=== PATIENT | male | born 1955 | race Caucasian/White ===

== ENCOUNTER → 2018-05-17 15:18 | Outpatient (CLI) | payer MEDICARE, SELFPAY ==
[2017-07-24 15:55] VITALS: BMI 30.1
[2018-05-17 18:19] LABS: Basophil# 0.05 X10^3/uL; Basophil% 0.7 % (0-1); Eosinophil# 0.42 X10^3/uL; Eosinophils% 5.9 % (0-5); Lymphocyte % 27.9 % (19-41); Mean Corp Hgb Conc 33.3 g/gl (32-36); Mean Platelet Vol. 9.8 fl (6.2-12.0); Monocyte# 0.61 X10^3/uL; Monocyte% 8.5 % (0-10); Neutrophil # 4.01 X10^3/uL (2.7-7.7); Platelet Count 290 K/mm3 (150-450); RBC Distribution Width CV 13.2 % (11.6-14.6); RBC Distribution Width SD 45.5 fl (35.1-43.9); Red Blood Count 5.16 M/mm3 (4.6-6.2); White Blood Count 7.2 K/mm3 (4.4-11.0)
[2018-05-17 18:21] LABS: POSITIVE COUNT NO; POSITIVE DIFFERENTIAL NO; POSITIVE MORPHOLOGY NO
[2018-05-17 18:34] LABS: ALB/GLOB Ratio 0.8 RATIO (0.9-2.4); AST(SGOT) 14 U/L (15-37); Alanine Aminotransfer ALT/SGPT 21 U/L (16-61); Albumin, Serum 3.3 g/dL (3.2-5.0); Alkaline Phosphatase 123 U/L (45-117); Anion Gap 9 (5-15); BUN 16 mg/dL (7-18); BUN/Creat Ratio 11.7 RATIO (10-20); CPK Total, Creatine Kinase 24 U/L (39-308); Calcium,Total 8.5 mg/dL (8.5-10.1); Chloride 104 mmol/L (98-107); Creatinine, Serum 1.37 mg/dL (0.70-1.30); EST Glomerular Filtration Rate 56 mL/min (>60); Est Glom Filt Rate - Afr Amer 68 mL/min (>60); Globulin 4.2 g/dL (2.2-4.2); Glucose 99 mg/dL (74-106); Potassium 4.1 mmol/L (3.5-5.1); Protein, Total 7.5 g/dL (6.4-8.2); Sodium Level 137 mmol/L (136-145)
[2018-05-17 18:43] LABS: Erythrocyte Sedimentation Rate 39 mm/hr (0-20)
--- OUTSIDE RECORDS SUMMARY | 2018-08-19 08:00 | XMS RPT_ITS ---
:1955 Author Organization [facility] Care Team Providers Name Role Phone CAMILO MATHUR MD Attending Unavailable PHYSICIAN, NONE Primary Care Unavailable CAMILO MATHUR MD Attending Unavailable PHYSICIAN, NONE Primary Care Unavailable [place] LAMBERT MD Attending Unavailable PHYSICIAN, NONE Primary Care Unavailable [place] LAMBERT MD Admitting Unavailable CAMILO MATHUR MD Consulting Unavailable DEZ SNELL MD Consulting Unavailable Cayden Medel Attending Unavailable Alana Mcclelland Primary Care Unavailable Alvin Lara Attending Unavailable Alana Mcclelland Referring Unavailable Alana Mcclelland Primary Care Unavailable PROBLEMS PROBLEMS DATE TYPE CONDITION / CODE ATTENDING STATUS SOURCE 06/02/2018 Unknown M79.10 - Myalgia, Cayden Medel Active [place] unspecified site / Community M79.10(ICD-10) Hospital Repository 07/24/2017 Unknown I10 - Essential Alvin Lara Active [place] (primary) Community hypertension / Hospital I10(ICD-10) Repository PROCEDURES PROCEDURES No Procedure Records FoundRESULTS RESULTS CBC W/DIFF, AUTOMATED Collected: 05/17/2018 Status: F Source: [place] 3:[address] [facility] REPOSITORY TYPE CODE TESTS RESULT OUT OF RANGE REFERENCE UNITS LAB L100.1000 4.4-11.0 K/mm3 Normal WBC 7.2 LAB L100.1200 4.6-6.2 M/mm3 Normal RBC 5.16 LAB L100.1300 13.0-16.5 g/dl Normal HGB 16.0 LAB L100.1400 40-54 % Normal HCT 48.0 LAB L100.1500 80-94 fL Normal MCV 93.0 LAB L100.1600 27.0-32.0 pg Normal MCH 31.0 LAB L100.1700 32-36 g/gl Normal MCHC 33.3 LAB L100.1810 11.6-14.6 % Normal RDW CV 13.2 LAB L100.1820 35.1-43.9 fl High RDW SD 45.5 LAB L100.1900 150-450 K/mm3 Normal PLT 290 LAB L100.2000 6.2-12.0 fl Normal MPV 9.8 LAB L100.2100 47-70 % Normal NEUT% 56.0 LAB L100.2200 19-41 % Normal LY% 27.9 LAB L100.2300 0-10 % Normal MONO% 8.5 LAB L100.2400 0-5 % High EO% 5.9 LAB L100.2500 0-1 % Normal BASO% 0.7 LAB L100.2550 0.0-0.9 % High IM GRAN % 1.000 Result Comment: IG% - Immature Granulocytes (promyelocytes, myelocytes and metamyelocytes) > 1% indicates that a LEFT SHIFT is Present. LAB L100.2620 2.0-7.7 X10 3/uL Normal Absolute Neut 4.0 LAB L100.2720 0.83-4.51 X10 3/ul Normal Absolute Lymph 2.00 Performed By: #### L100.0100, L101.9900 #### [facility] [address] [place], [address] ERYTHROCYTE SED RATE Collected: 05/17/2018 Status: F Source: [place] 3:[address] [facility] REPOSITORY TYPE CODE TESTS RESULT OUT OF RANGE REFERENCE UNITS LAB L102.0000 0-20 mm/hr High SED RATE 39 Performed By: #### L100.0100, L101.9900 #### [facility] [address] [place], [address] COMPREHENSIVE METABOLIC Collected: 05/17/2018 Status: F Source: [place] [facility] 3:[address] [facility] REPOSITORY TYPE CODE TESTS RESULT OUT OF RANGE REFERENCE UNITS LAB L501.0100 74-106 mg/dL Normal GLU 99 Result Comment: Please note revised GLUCOSE reference range effective 2017. LAB L501.1000 7-18 mg/dL Normal BUN 16 LAB L501.1100 0.70-1.30 mg/dL High CREAT,SERUM 1.37 Result Comment: The validity of the calculated GFR AND GFRAA in patients over 70 years has not been determined. Clinical correlation is essential. LAB L501.1110 >60 mL/min Low EST GFR 56 Result Comment: Non- GFR Calc LAB L501.1115 >60 mL/min Normal EST GFR - AA 68 Result Comment: GFR Calc LAB L501.1300 10-20 RATIO Normal BUN/CRE 11.7 LAB L501.1500 6.4-8.2 g/dL T Normal PROT 7.5 LAB L501.1800 3.2-5.0 g/dL Normal ALB 3.3 LAB L501.1950 2.2-4.2 g/dL Normal GLOB 4.2 LAB L501.2000 0.9-2.4 RATIO Low A/G 0.8 LAB L501.2200 8.5-10.1 mg/dL CA Normal 8.5 LAB L501.4100 15-37 U/L Low AST 14 Result Comment: Slight Hemolysis, Result may be falsely increased. LAB L501.4305 45-117 U/L High ALK P 123 LAB L501.4405 16-61 U/L Normal ALT 21 LAB L501.4600 0.20-1.00 mg/dL Normal T BILI 0.50 LAB L501.5300 136-145 mmol/L Normal NA 137 LAB L501.5600 3.5-5.1 mmol/L Normal K 4.1 Result Comment: Slight Hemolysis, Result may be falsely increased. LAB L501.5900 98-107 mmol/L Normal CL 104 LAB L501.6100 21.0-32.0 mmol/L Normal CO2 24.0 LAB L501.6200 5-15 Normal 9 GAP Performed By: #### L500.4050, L501.3620, L501.6710 #### [facility] [address] [place], [address] CPK TOTAL, CREATINE Collected: 05/17/2018 Status: F Source: [facility] 3:[address] [facility] REPOSITORY TYPE CODE TESTS RESULT OUT OF RANGE REFERENCE UNITS LAB L501.3620 39-308 U/L Low CPK TOTAL 24 Performed By: #### L500.4050, L501.3620, L501.6710 #### [facility] [address] [place], [address] CRP Collected: 05/17/2018 Status: F Source: [place] 3:[address] [facility] REPOSITORY TYPE CODE TESTS RESULT OUT OF RANGE REFERENCE UNITS LAB L501.6710 0.0-3.0 mg/L High 12.20 C-REACTIVE PROT Result Comment: C-Reactive Protein (CRP) provides useful information for the diagnosis, therapy and monitoring of inflammatory processes and associated diseases. For the evaluation of Relative Risk for Cardiovascular Disease, a High Sensitivity CRP (HSCRP) should be ordered. Performed By: #### L500.4050, L501.3620, L501.6710 #### [facility] [address] [place], [address] CBC Collected: 08/21/2017 Status: F Source: [facility] 5:30 AM [facility] REPOSITORY TYPE CODE TESTS RESULT OUT OF REFERENCE UNITS RANGE LAB WBC(LOINC) 4.50-10.80 10 3/mcL WBC 7.10 LAB RBCCT(LOINC 4.50-6.00 10 6/mcL ) RBC 4.53 LAB HGB(LOINC) 13.0-17.5 G/dL Hgb 14.5 LAB HCT(LOINC) 40.0-52.0 % Hct 42.0 LAB MCV(LOINC) 81.0-100.0 fL MCV 92.7 LAB MCH(LOINC) 27.0-33.0 pg MCH 31.9 LAB MCHC(LOINC) 32.0-36.0 G/dL MCHC 34.4 LAB RDW(LOINC) 11.5-15.5 % RDW 13.3 LAB PLT(LOINC) 150-450 10 3/mcL Platelet 272 LAB MPV(LOINC) 6.4-10.5 fL MPV 8.3 Performed By: #### CBC, ADIFF, ANEU, LIPID, BMP, GFR #### [address] [address] .AUTO DIFF Collected: 08/21/2017 Status: F Source: [facility] 5:30 AM [facility] REPOSITORY TYPE CODE TESTS RESULT OUT OF REFERENCE UNITS RANGE LAB MAJOR(LOINC) 50.0-75.0 % Neutrophil % 58.8 LAB LYM(LOINC) 20.0-40.0 % Lymphocyte % 27.4 LAB MON(LOINC) 2.0-13.0 % Monocyte % 7.5 LAB EO(LOINC) 0.0-6.0 % Eosinophil % 5.5 LAB BAS(LOINC) 0.0-2.5 % Basophil % 0.8 LAB ABLYM(LOIN 0.90-4.32 10 3/mcL C) Lymphocyte, 1.90 Absolute LAB KARELY(LOINC 0.09-1.40 10 3/mcL ) Monocyte, 0.50 Absolute LAB AEOS(LOINC 0.00-0.65 10 3/mcL ) Eosinophil, 0.40 Absolute LAB ABAS(LOINC 0.00-0.27 10 3/mcL ) Basophil, 0.10 Absolute Performed By: #### CBC, ADIFF, ANEU, LIPID, BMP, GFR #### [address] [address] .NEUABS Collected: 08/21/2017 Status: F Source: [facility] 5:30 AM [facility] REPOSITORY TYPE CODE TESTS RESULT OUT OF REFERENCE UNITS RANGE LAB ANEU(LOINC) 2.25-8.10 10 3/mcL Neutrophil, 4.10 Absolute Performed By: #### CBC, ADIFF, ANEU, LIPID, BMP, GFR #### [address] [address] LIPID Collected: 08/21/2017 Status: F Source: [facility] 5:30 AM [facility] REPOSITORY TYPE CODE TESTS RESULT OUT OF REFERENCE UNITS RANGE LAB CHOL(LOINC 50-199 mg/dL ) Cholesterol 154 Result Comment: Cholesterol Reference Interval: Less than 200 Desirable 200-239 Borderline high risk 240 and above High risk LAB TRIG(LOINC) 3-149 mg/dL Triglycerides 92 Result Comment: Triglyceride Reference Interval: Less than 150 Normal 150-199 Borderline high risk 200-499 High risk 500 or higher Very high risk LAB HD(LOINC) 40-59 mg/dL HDL Low Cholesterol 26 Result Comment: HDL Reference Interval: Less than 40 Low - high risk 60 or above Optimal/lowers risk LAB LDL(LOINC) 0-129 mg/dL LDL Cholesterol 110 Result Comment: LDL is a calculated result and requires a 12-hr fast. LDL Reference Interval: Less than 100 Optimal 100-129 Near or above optimal 130-159 Borderline high risk 160-189 High risk 190 and above Very high risk Performed By: #### CBC, ADIFF, ANEU, LIPID, BMP, GFR #### [place] [id number] [place] [address] BMP Collected: 08/21/2017 Status: F Source: [facility] 5:30 AM [facility] REPOSITORY TYPE CODE TESTS RESULT OUT OF REFERENCE UNITS RANGE LAB GLU(LOINC) 82-115 mg/dL Glucose Level 101 LAB NA(LOINC) 136-145 mEq/L Sodium Level 140 LAB K(LOINC) 3.5-5.0 mEq/L Potassium Level 4.3 LAB CL(LOINC) 98-110 mEq/L Chloride High 111 LAB CO2(LOINC) 22-32 mEq/L CO2 23 LAB EBAL(LOINC 4.0-15.0 mEq/L ) Electrolyte Balance 6.0 LAB BUN(LOINC) 8.0-22.0 mg/dL BUN 14.0 LAB CRE(LOINC) 0.60-1.40 mg/dL Creatinine Lvl (s) 1.07 LAB BC(LOINC) 10.0-22.0 ratio BUN/Creatinine 13.1 Ratio LAB CA(LOINC) 8.4-10.1 mg/dL Low Calcium Lvl 8.2 Performed By: #### CBC, ADIFF, ANEU, LIPID, BMP, GFR #### [address] [address] .GFR Collected: 08/21/2017 Status: F Source: [facility] 5:30 AM [facility] REPOSITORY TYPE CODE TESTS RESULT OUT OF REFERENCE UNITS RANGE LAB GFRAA(LOINC ml/min/1.73 ) sqm GFR >60 [place] Result Comment: GFR Population mean for , Non- Americans Ages 20-29 = 116 mL/min/1.73 sq.m. Ages 30-39 = 107 mL/min/1.73 sq.m. Ages 40-49 = 99 mL/min/1.73 sq.m. Ages 50-59 = 93 mL/min/1.73 sq.m. Ages 60-69 = 85 mL/min/1.73 sq.m. Ages 70+ = 75 mL/min/1.73 sq.m. Chronic Kidney Disease: Less than 60 mL/min/1.73 square meters End Stage Renal Disease: Less than 15 mL/min/1.73 square meters LAB GFRNO(LOINC) ml/min/1.73sqm GFR Non- >60 Result Comment: GFR Population mean for , Non- Americans Ages 20-29 = 116 mL/min/1.73 sq.m. Ages 30-39 = 107 mL/min/1.73 sq.m. Ages 40-49 = 99 mL/min/1.73 sq.m. Ages 50-59 = 93 mL/min/1.73 sq.m. Ages 60-69 = 85 mL/min/1.73 sq.m. Ages 70+ = 75 mL/min/1.73 sq.m. Chronic Kidney Disease: Less than 60 mL/min/1.73 square meters End Stage Renal Disease: Less than 15 mL/min/1.73 square meters Performed By: #### CBC, ADIFF, ANEU, LIPID, BMP, GFR #### [address] [address] BMP Collected: 08/20/2017 Status: F Source: [facility] 9:19 AM [facility] REPOSITORY TYPE CODE TESTS RESULT OUT OF REFERENCE UNITS RANGE LAB GLU(LOINC) 82-115 mg/dL Glucose Level 103 LAB NA(LOINC) 136-145 mEq/L Sodium Level 140 LAB K(LOINC) 3.5-5.0 mEq/L Potassium Level 4.3 LAB CL(LOINC) 98-110 mEq/L Chloride 110 LAB CO2(LOINC) 22-32 mEq/L Low CO2 21 LAB EBAL(LOINC 4.0-15.0 mEq/L ) Electrolyte Balance 9.0 LAB BUN(LOINC) 8.0-22.0 mg/dL BUN 16.0 LAB CRE(LOINC) 0.60-1.40 mg/dL Creatinine Lvl (s) 1.26 LAB BC(LOINC) 10.0-22.0 ratio BUN/Creatinine 12.7 Ratio LAB CA(LOINC) 8.4-10.1 mg/dL Calcium Lvl 9.1 Performed By: #### BMP, GFR, PRO #### [place] [address] .GFR Collected: 08/20/2017 Status: F Source: [facility] 9:19 AM [facility] REPOSITORY TYPE CODE TESTS RESULT OUT OF REFERENCE UNITS RANGE LAB GFRAA(LOINC ml/min/1.73 ) sqm GFR >60 [place] Result Comment: GFR Population mean for , Non- Americans Ages 20-29 = 116 mL/min/1.73 sq.m. Ages 30-39 = 107 mL/min/1.73 sq.m. Ages 40-49 = 99 mL/min/1.73 sq.m. Ages 50-59 = 93 mL/min/1.73 sq.m. Ages 60-69 = 85 mL/min/1.73 sq.m. Ages 70+ = 75 mL/min/1.73 sq.m. Chronic Kidney Disease: Less than 60 mL/min/1.73 square meters End Stage Renal Disease: Less than 15 mL/min/1.73 square meters LAB GFRNO(LOINC) ml/min/1.73sqm GFR Non- 58 Result Comment: GFR Population mean for , Non- Americans Ages 20-29 = 116 mL/min/1.73 sq.m. Ages 30-39 = 107 mL/min/1.73 sq.m. Ages 40-49 = 99 mL/min/1.73 sq.m. Ages 50-59 = 93 mL/min/1.73 sq.m. Ages 60-69 = 85 mL/min/1.73 sq.m. Ages 70+ = 75 mL/min/1.73 sq.m. Chronic Kidney Disease: Less than 60 mL/min/1.73 square meters End Stage Renal Disease: Less than 15 mL/min/1.73 square meters Performed By: #### MARYA GFR, PRO #### [place] [id number] PRO Collected: 08/20/2017 Status: F Source: [facility] 9:19 AM [facility] REPOSITORY TYPE CODE TESTS RESULT OUT OF REFERENCE UNITS RANGE LAB PT(LOINC) 9.0-14.5 seconds Protime 11.9 Result Comment: Effective 12/14/07, Protime results may be affected by some antibiotics (i.e. Ciprofloxacin, Azithromycin, Bactrim) which may potentiate the action of oral anticoagulants, with further increases in Protime/INR. LAB INR(LOINC) ratio PT International Ratio 1.0 Result Comment: The [place] [employer] (CHEST, 1992, 102:312S-25S) recommended therapeutic range for oral anticoagulant therapy is: LOW RISK: Prophylaxis of venous thrombosis INR: 2.0-3.0 Treatment of pulmonary embolism 2.0-3.0 Prevention of systemic embolism 2.0-3.0 HIGH RISK: Mechanical prosthetic valves 2.5-3.5 Performed By: #### MARYA, GFR, PRO #### [place] [address] NM MYOCARDIAL SPECT Observed: 08/11/2017 Status: F Source: [facility] STRESS/REST 8:15 AM [facility] REPOSITORY ORIGINAL NM MYOCARDIAL SPECT STRESS/REST CLINICAL STATEMENT: CAD,SOB TECHNIQUE: Lexiscan dose:0.4 mg Radiopharmaceutical (stress): Tc-99m Sestamibi Dose:32.4 mCi Radiopharmaceutical (rest): Tc-99m Sestamibi Dose:10.6 mCi SPECT acquisition and processing Reconstruction and reorientation of SPECT images into short axis, vertical and horizontal long axis planes Quantitative LVEF assessment COMPARISON: None REPORT:On stress and rest images the heart appears normal in size. On gated imaging the ejection fraction is 45%. There is hypokinesis of the basal inferior wall. On stress images there is a decrease in the uptake of activity in the anterior wall extending to the apex. There additionally is a decrease in the uptake of activity in the inferior wall extending to the apex. There is improvement noted in t he anterior and anterolateral wall on rest images. There additionally appears to be improvement in the uptake of activity in the mid inferior wall on rest images. IMPRESSION: 1. Reversible defect in the anterior, anterolateral and mid inferior wall suggesting ischemia in this area. 2. The ejection fraction is 45% with basal inferior wall hypokinesis. Interpreted By: Kareem Recinos MD Preliminary Report By: Kareem Recinos MD Electronically Signed By: Kareem Recinos MD Dictated Date: 08/11/2017 3:01:10 PM Prelim Date: 08/11/2017 3:01:10 PM Sign Date: 08/11/2017 3:06:03 PM CBC Collected: 08/06/2017 Status: F Source: [facility] 3:02 [facility] REPOSITORY TYPE CODE TESTS RESULT OUT OF REFERENCE UNITS RANGE LAB WBC(LOINC) 4.60-10.80 10 3/mcL High WBC 11.20 LAB RBCCT(LOINC 4.04-6.13 10 6/mcL ) RBC 5.34 LAB HGB(LOINC) 14.0-18.0 G/dL Hgb 16.3 LAB HCT(LOINC) 42.0-52.0 % Hct 49.4 LAB MCV(LOINC) 80.0-94.0 fL MCV 92.5 LAB MCH(LOINC) 27.0-31.2 pg MCH 30.5 LAB MCHC(LOINC) 31.8-35.4 G/dL MCHC 33.0 LAB RDW(LOINC) 11.5-14.5 % RDW 13.7 LAB PLT(LOINC) 130-400 10 3/mcL Platelet 297 LAB MPV(LOINC) 7.4-10.4 fL MPV 8.3 Performed By: #### CBC, ADIFF, ANEU, BMP, GFR #### [place] [address] .AUTO DIFF Collected: 08/06/2017 Status: F Source: [facility] 3:02 [facility] REPOSITORY TYPE CODE TESTS RESULT OUT OF REFERENCE UNITS RANGE LAB MAJOR(LOINC) 37.0-80.0 % Neutrophil % 60.9 LAB LYM(LOINC) 10.0-50.0 % Lymphocyte % 27.7 LAB MON(LOINC) 1.7-13.0 % Monocyte % 6.0 LAB EO(LOINC) 0.0-7.0 % Eosinophil % 4.6 LAB BAS(LOINC) 0.0-2.5 % Basophil % 0.8 LAB ABLYM(LOIN 0.77-3.85 10 3/mcL C) Lymphocyte, 3.10 Absolute LAB KARELY(LOINC 0.15-1.00 10 3/mcL ) Monocyte, 0.70 Absolute LAB AEOS(LOINC 0.00-0.40 10 3/mcL ) High Eosinophil, 0.50 Absolute LAB ABAS(LOINC 0.00-0.19 10 3/mcL ) Basophil, 0.10 Absolute Performed By: #### CBC, ADIFF, ANEU, BMP, GFR #### [address] [address] .NEUABS Collected: 08/06/2017 Status: F Source: [facility] 3:02 [facility] REPOSITORY TYPE CODE TESTS RESULT OUT OF REFERENCE UNITS RANGE LAB ANEU(LOINC) 2.85-6.16 10 3/mcL High Neutrophil, 6.80 Absolute Performed By: #### CBC, ADIFF, ANEU, BMP, GFR #### [address] [address] BMP Collected: 08/06/2017 Status: F Source: [facility] 3:02 [facility] REPOSITORY TYPE CODE TESTS RESULT OUT OF REFERENCE UNITS RANGE LAB 1547-9 80-115 mg/dL GLUCOSE 104 LAB NA(LOINC) 136-146 mEq/L Sodium Level 142 LAB K(LOINC) 3.5-5.1 mEq/L Potassium High Level 5.2 LAB CL(LOINC) 98-107 mEq/L Chloride 106 LAB CO2(LOINC) 23-31 mEq/L CO2 26 LAB EBAL(LOINC mEq/L ) Electrolyte Balance 10.0 LAB BUN(LOINC) 7.0-18.0 mg/dL BUN 15.1 LAB CRE(LOINC) 0.6-1.2 mg/dL Creatinine High Lvl (s) 1.4 LAB BC(LOINC) 7-27 ratio BUN/Creatinine 11 Ratio LAB CA(LOINC) 8.4-10.2 mg/dL Calcium Lvl 9.7 Performed By: #### CBC, ADIFF, ANEU, BMP, GFR #### [place] [address] [address] .GFR Collected: 08/06/2017 Status: F Source: [employer] 3:02 PM [facility] REPOSITORY TYPE CODE TESTS RESULT OUT OF REFERENCE UNITS RANGE LAB GFRAA(LOINC ml/min/1.73 ) sqm GFR 62 [place] Result Comment: GFR Population mean for , Non- Americans Ages 20-29 = 116 mL/min/1.73 sq.m. Ages 30-39 = 107 mL/min/1.73 sq.m. Ages 40-49 = 99 mL/min/1.73 sq.m. Ages 50-59 = 93 mL/min/1.73 sq.m. Ages 60-69 = 85 mL/min/1.73 sq.m. Ages 70+ = 75 mL/min/1.73 sq.m. Chronic Kidney Disease: Less than 60 mL/min/1.73 square meters End Stage Renal Disease: Less than 15 mL/min/1.73 square meters LAB GFRNO(LOINC) ml/min/1.73sqm GFR Non- 51 Result Comment: GFR Population mean for , Non- Americans Ages 20-29 = 116 mL/min/1.73 sq.m. Ages 30-39 = 107 mL/min/1.73 sq.m. Ages 40-49 = 99 mL/min/1.73 sq.m. Ages 50-59 = 93 mL/min/1.73 sq.m. Ages 60-69 = 85 mL/min/1.73 sq.m. Ages 70+ = 75 mL/min/1.73 sq.m. Chronic Kidney Disease: Less than 60 mL/min/1.73 square meters End Stage Renal Disease: Less than 15 mL/min/1.73 square meters Performed By: #### CBC, ADIFF, ANEU, BMP, GFR #### [place] [address] [address] URGENT CARE VISIT Observed: 07/24/2017 Status: F Source: [place] RE[place] 4:[address] [facility] REPOSITORY [address] [address] OFFICE VISIT Date of Service: 07/24/17 MR#: [id number] Acct: [id number] Name: CHEY ROSADO Rep #: [id number] : 1955 Provider: Alvin SPEARS Age/Sex: 62/M Location[place] [facility] Status: Signed Intake Vital Signs07/24/17 Height 5 ft 9 in Intake Visit Reasons: Dizziness Chief Complaint: Improved dizziness Is patient in pain?: No Allergies Sulfa (Sulfonamide Antibiotics) Allergy (Verified 07/24/17 15:56) Unknown Medications clopidogrel 75 mg tablet 150 mg PO QDAY 07/24/17 [History Confirmed 07/24/17] PFSH Medical History Arthritis (Acute) Heart disease (Acute) HTN (hypertension) (Chronic) Surgical History History of wvhht-nypkv-oonkkvs bypass (Acute) History of open heart surgery (Acute) Social History Smoking Status: Smoker, status unknown alcohol intake: current HPI HPI Chief Complaint: Improved dizziness Details: CHEY ROSADO, is a 62 M who presents to the office today for evaluation of his blood pressure. Patient states previously being prescribed lisinopril 5 mg daily by his primary care physician approximately a year ago which helped with his blood pressures. He states that his systolic blood pressures were consistently in the 130s 140s and was put on lisinopril, his blood pressure came down to the 100s-1 teens. Over the course last several months patient notes he has gotten rid of several huge stressors in his life on a personal level, and therefore has noticed that his systolic blood pressure has been consistently in the 80s with accompanying dizziness. He attempted to contact his primary care physician's office, stating he spoke with the nurse practitioner, about getting off of the lisinopril. He states there office has not returned his call over the last couple of days and therefore has decided to stop the lisinopril on his own. He last took his lisinopril yesterday morning and has noticed since then that his dizziness episodes has decreased considerably, stating his systolic blood pressure was in the 90s this morning and then this afternoon around 110. He is here seeking a second opinion to see if this is okay to stop his lisinopril. Patient states he actually feels perfectly fine at this time and is only seeking advice ROS Const Constitutional: No chills, fever(s), night sweats, body ache, abnormal sleep pattern or excessive sweating Eyes Eyes: No change in vision, double vision, blurry vision, visual disturbances or eye pain ENT ENT: No ear pain Resp Respiratory: No shortness of breath Cardio Cardiology: No excessive sweating, chest pain at rest, chest pain with exertion, shortness of breath, dyspnea on exertion, irregular heart rhythm, generalized swelling or leg pain with exertion Gastro GI: No abdominal pain, change in bowel habits or change in stool character Genitourinary Male: No difficulty urinating or painful urination Musc Musculoskeletal: No joint pain, back pain or limited range of motion Skin Skin: No change in hair or sores Neuro Neurology: No abnormal speech, abnormal movements or visual disturbances Psych Psychiatric: No abnormal sleep pattern Endo Endocrine: No change in body appearance, cold intolerance, heat intolerance or excessive sweating Aller/Imm Allergy/Immunologic: No food intolerance Ryan/Lymp Hematologic/Lymphatic: No easy bruising Exam Const General: cooperative, healthy appearing, no acute distress Nutritional Appearance: average body habitus Orientation: alert, awake, oriented x3 HENMT Head: normal to inspection Ears: hearing grossly normal bilaterally, external ears normal, TM's normal bilaterally, EAC's normal Nose: external nose normal, nares normal, septum normal, no nasal discharge Face and sinus: normal facial exam, face symmetric Mouth: oral mucosae normal, lip normal, oropharynx normal, tongue normal Teeth and gingiva: gingiva normal, dentition normal Throat: posterior oropharynx normal, tonsils normal, uvula midline Eyes General: appearance normal, both eyes and all related structures Neck Neck: normal visual inspection, full ROM, no lymphadenopathy, no meningeal signs, supple Neck mass: No Thyroid: thyroid normal Lymphatic: no lymphadenopathy noted Chest Chest palpation AND inspection: normal inspection of the chest Resp Effort AND Inspection: normal respiratory effort, able to speak in complete sentences, symmetric chest movement Auscultation: Bilateral: Clear to Auscultation Cardio Palpation: normal PMI Rate: regular rate Rhythm: regular rhythm Heart Sounds: S1 normal, S2 normal, no gallops, no murmurs, no rubs Pulses: radial pulses present GI Inspection: normal to inspection Palpation: soft, no hepatosplenomegaly Skin General: no rashes or lesions noted Neuro General: alert, awake, oriented x3, gait normal Cognition: normal cognition Speech: speech normal Gait: normal gait Motor: muscle tone normal throughout Sensory Exam: no sensory deficits noted Extrem General: normal to inspection Psych Appearance: grossly normal Mental Status: mental status grossly normal Mood: congruent mood Affect: normal affect Speech and Movement: speech and movement normal Attitude: cooperative Thought Process: normal Thought Content: normal Judgment: judgment good Assessment AND Plan Problems 1. 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 Been having been said, if the patient will ignore this recommendation of mine, I strongly encouraged him to continue to check his blood pressure at least twice daily as well as keep a diary of his dizziness episodes to tell they continue to receiving. Patient informed he must follow-up with his primary care physician first available appointment preferably within the next 2-3 days. Patient is aware he must report to the emergency room immediately should symptoms worsen or other concerns develop. Patient states acknowledging understanding all the above. This note was generated with [email or web address] dictation software. It may contain incorrect words, spelling, and punctuation that were not noted in checking the note before signing. Coding Level of Care Code Off vis,new,level 4 Diagnoses Essential hypertension I10 07/24/17 1607 <Electronically signed by Alvin SPEARS> Date Alvin SPEARS Cosigner Signature: Date (if applicable) CC: ALLERGIES ALLERGIES DATE TYPE / CODE NAME / CODE REACTION SEVERITY SOURCE 07/24/2017 Drug Sulfa Unknown Unknown [facility] Allergy/4160 (Sulfonamide [facility] [address](SNOMED Antibiotics)/ Repository CT) [id number](RX NORM) ENCOUNTERS ENCOUNTERS ADMIT/DISCHARGE ACCOUNT NUMBER ADMITTING ENCOUNTER LOCATION SOURCE CLASS 05/17/2018 [id number] Ambulatory [facility] ding:BFHLAB Repository 08/20/2017/08/22/19 [id number] PETRA STEELE, Ambulatory ABuilding:CC [place] [address] [place] L[place] URoom: Health 0310Bed: A [facility] [place] Repository 08/11/2017/08/12/19 [id number] Ambulatory BBuilding:CV [address] [facility] Repository 08/06/2017/08/07/19 [id number] Ambulatory BBuilding:OL [place] [address] [facility] Repository 07/24/2017/07/24/19 [id number] Ambulatory BMSBuilding: [place] Repository PAYERS PAYERS ENCOUNTER GUARANTOR 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 SOURCE 05/17/2018 CHEY E [id number] Primary CHEY E ROOTDOB: [place] LANCE Insurance:MEDICARE [id number] [place], [place] PART A [facility] [id number]: [phone]) Number: Repository () [id number] Date:2018-05-17 05/17/2018 Secondary NOT GIVENUNK [place] Insurance:SELF PAY [facility] Number: Effective Repository Date:2018-05-17 08/20/2017 CHEY E ROOTDOB: Primary CHEY E ROOTDOB: [place] [id number] Insurance:MEDICARE [id number] [facility] [place] [address] LANCE PART BPolicy Number: 5 [address] Repository [place], [place] [id number] [place] [address]Dzy: (330) Date:2017-08-14 - [place], [place] () [id number] [id number]: ([phone]) Name:[facility] Administrators LLCPO ()Tel: [phone] Ran [phone], [phone] () [place] [address]IJ: 08/11/2017 CHEY E ROOTDOB: Primary CHEY E ROOTDOB: [place] [id number] Insurance:MEDICARE [id number] [facility] [address] LANCE PART BPolicy Number: 5 [address] Repository [place], [place] [id number] LANCE [id number]: (330) Date:2017-08-06 [place] () [id number] [id number]: ([phone]) Name:[facility] Administrators LLCPO (HP)Tel: [phone]) [address] [phone], [phone] (WP) [place] [address]SM: 08/06/2017 CHEY E ROOTDOB: Primary CHEY E ROOTDOB: [facility] Insurance:MEDICARE [id number] Foundation [address] [place] PART [facility] Number: 5 [address] Repository [place], [place] [id number] [place] [id number]: (330) Date:2017-08-06 - [place] 466 () [id number]: ([phone]) Name:[facility] Administrators LLCPO (HP)Tel: [phone]) [address] [phone], [phone] (WP) [place] [address]QR: 07/24/2017 CHEY E [id number] Primary CHEY E ROOTDOB: [place] DIBOLL Insurance:MEDICARE [id number] [facility] [place] [facility] [id number]: (330) Number: Repository [phone] () [id number] Date:2017-07-24 07/24/2017 Secondary NOT GIVENUNK [place] Insurance:SELF PAY [facility] Number: Effective Repository Date:2017-07-24
== END ==
PROVIDERS: Family Provider Family Medicine; PCP Family Medicine; Visit Provider Family Medicine
DX: M79.10 Myalgia, unspecified site (principal); R53.83 Other fatigue; R53.1 Weakness
CPT/HCPCS: 36415; 80053; 82550; 85025; 85652; 86140

== ENCOUNTER 2019-01-30 14:38 | Emergency (ER) | payer MEDICARE, SELFPAY ==
[2019-01-30] VITALS (8 sets, daily range): BP systolic 101–117; BP diastolic 75–97; PULSE 92–107; RESP 16–20; TEMP 36.6; O2SAT 96–99; BMI 29.3
--- NOTE | 2019-01-30 14:44 | EKG12_ITS ---
Test Reason : REPEAT EKG Blood Pressure : / mmHG Vent. Rate : 098 BPM Atrial Rate : 098 BPM P-R Int : 158 ms QRS Dur : 106 ms QT Int : 384 ms P-R-T Axes : 057 020 171 degrees QTc Int : 490 ms Normal sinus rhythm Possible Left atrial enlargement Possible Inferior infarct , age undetermined ST & T wave abnormality, consider lateral ischemia Abnormal ECG Confirmed by JAMES STEELE, INDY ([id number]), material expeditor KATHY HODGES ([id number]) on 02/01/2019 11:33:15 AM Referred By: GEOVANNA Confirmed By:INDY RAMIREZ MD
[2019-01-30] MEDS: Aspirin 81 MG TAB.CHEW 324 MG PO (14:53)
--- NOTE | 2019-01-30 14:55 | ED.VISSUMM ---
- ER Visit Summary Date of Service: 01/30/19 Chief Complaint: Chest pain History of Present Illness: The patient is a 63 M with CAD, AK with 3 cardiac stents and aortic stents. Also peripheral arterial disease on Plavix. Patient states that he triple bypass in 2011 done at [facility]. Patient states that he has had chest pain for approximately a week. Was seen by his primary care physician. With sterile medications for possible hiatal hernia. Denies any hemoptysis. Mild shortness of breath. His daughter is accompanying him and is sitting by bedside. Physical Examination: Vital signs stable. He is afebrile. Pulse ox 90% room air no signs of hypoxia. HEENT exam unremarkable. Neck nontender. Lungs clear to auscultation bilaterally. Heart regular rhythm rate about 105 no murmur. Chest wall nontender. Abdomen soft nontender normal bowel sounds no peritoneal signs. Extremities moves all 4. Calves nontender without cords. No edema. Neurologically is awake and alert with no focal motor deficits. Test Results: Portable shows no acute abnormality as read by myself. Normal cardiac silhouette. Chronic changes. CBC shows white count 11. Hemoglobin 16. No bands. Chemistries unremarkable except BUN 13 creatinine 1.48 previously he had a creatinine 1.37. Anion gap is 8. Troponin is elevated 2.58 consistent with a non-ST elevation AK. The initial EKG was a sinus tachycardia rate of [address] depression in leads V4 5 and 6 which was seen on a prior EKG from 2013. Emergency Department Course and Treatment: Patient undergo cardiac work-up. His chest pains been constant for about a week. Sublingual nitro will be tried. After discussing patient's care with our senior training and development rep. He will be given heparin bolus and drip. Will be started on nitroglycerin drip. Treatment Plan: Discussed the patient's care with Dr. Amor. The patient had no relief with sublingual nitroglycerin x3. Given morphine and Zofran. Will be started on nitroglycerin intravenous drip. Dr. Amor has come down to evaluate patient. The question is with his past history of aortic surgery and bypass surgery we will admit him here at [facility] or sending to a larger facility. Patient desires to be transferred to [facility] in [place] if at all possible. I have already spoken to the supervisory nurse. I will speak to the transfer center in the system and let them determine whether patient's best hospital and there persistently transferred to. Disposition: Transfer to a facility Impression: Acute chest pain secondary to Non-ST elevation AK Acute on chronic renal insufficiency History of prior CAD, cardiac stents and prior AK History of prior aortic disease with prior surgery Anticoagulated on Plavix This note was generated with [employer] dictation software. It may contain incorrect words, spelling, and punctuation that were not noted in review of the chart prior to signing ED Disposition - Plan for ED Patient: Referrals: Annika Villasenor MD [Primary Care Provider] -
[2019-01-30] MEDS: Nitroglycerin SL (ED/IMG/CATH) 0.4 MG TABLET SUBLINGUAL ×2 (14:58→15:16)
--- NOTE | 2019-01-30 14:59 | ED.RN ---
PT RATING CHEST PAIN AT 8, BP 106/82 PULSE 104. 1ST NITRO ADMINISTERED.
--- NOTE | 2019-01-30 15:00 | RAD_ITS ---
STUDY: X-RAY CHEST REASON FOR EXAM: Male, 63 years old. Chest pain TECHNIQUE: Single AP portable view of the chest. COMPARISON: None. FINDINGS: traffic monitor specialist leads are present. There is a prominent bronchopulmonary marking pattern of the lungs. There is no demonstrated pleural abnormality. The heart size is within normal limits. Status post sternotomy changes are present. Normal mediastinum and chad. Normal visualized pulmonary arteries. Normal visualized aortic arch and descending thoracic aorta. Normal visualized thoracic spine. Normal visualized ribs, clavicles, and shoulders. There is no demonstrated abnormality of the visualized soft tissue structures of the upper abdomen. RAD/Chest 1 View (Portable) IMPRESSION: Status post sternotomy. Prominent bronchopulmonary marking pattern of the lungs. There is no evidence of barb infiltrate, atelectasis, pleural fluid. Electronically Signed: Silas Giordano MD at 16:08 EDT , Service support ,
[2019-01-30 15:03] LABS: Absolute Lymphocyte Count 2.62 X10^3/uL (0.83-4.51); Absolute Neutrophil Count 7.9 X10^3/uL (2.0-7.7); Basophil# 0.09 X10^3/uL; Basophil% 0.8 % (0-1); Eosinophil# 0.36 X10^3/uL; Eosinophils% 3.1 % (0-5); Hemoglobin 16.1 g/dL (13.0-16.5); Lymphocyte # 2.62 X10^3/ul (4.0); Lymphocyte % 22.2 % (19-41); Mean Corp Hgb Conc 33.5 g/dL (32-36); Mean Corpuscular Hgb 31.9 pg (27.0-32.0); Mean Corpuscular Volume 95.2 fL (80-94); Mean Platelet Vol. 9.4 fl (6.2-12.0); Monocyte# 0.74 X10^3/uL; Monocyte% 6.3 % (0-10); NRBC Flagged by Analyzer 0 % (0-5); Neutrophil # 7.86 X10^3/uL (2.7-7.7); Neutrophil % 66.6 % (47-70); Platelet Count 290 K/mm3 (150-450); RBC Distribution Width SD 45.5 fl (35.1-43.9); Red Blood Count 5.04 M/mm3 (4.6-6.2); White Blood Count 11.8 K/mm3 (4.4-11.0)
[2019-01-30 15:41] LABS: Anion Gap 8 (5-15); BUN 13 mg/dL (7-18); BUN/Creat Ratio 8.8 RATIO (10-20); Calcium,Total 8.8 mg/dL (8.5-10.1); Chloride 109 mmol/L (98-107); Creatinine, Serum 1.48 mg/dL (0.70-1.30); EST Glomerular Filtration Rate 51 mL/min (>60); Est Glom Filt Rate - Afr Amer 62 mL/min (>60); Estimated Creatinine Clearance 52.75 ml/min; Glucose 149 mg/dL (74-106); Sodium Level 139 mmol/L (136-145)
--- NOTE | 2019-01-30 16:00 | EKG12_ITS ---
Test Reason : CP Blood Pressure : / mmHG Vent. Rate : 106 BPM Atrial Rate : 106 BPM P-R Int : 152 ms QRS Dur : 106 ms QT Int : 362 ms P-R-T Axes : 064 039 142 degrees QTc Int : 480 ms Sinus tachycardia Possible Left atrial enlargement Cannot rule out Inferior infarct , age undetermined ST & T wave abnormality, consider lateral ischemia Abnormal ECG Confirmed by JAMES STEELE, INDY ([id number]), manager editorial KATHY HODGES ([id number]) on 02/01/2019 11:33:33 AM Referred By: JADEN Confirmed By:INDY RAMIREZ MD
[2019-01-30] MEDS: morphine 8 MG/ML Syringe 6 MG IV (16:07)
[2019-01-30] MEDS: Ondansetron 4 MG/2 ML Vial IV (16:09)
[2019-01-30] MEDS: Nitroglycerin Infusion 250 ML 3 MG CONT INF (16:32)
--- NOTE | 2019-01-30 16:59 | CON.PCM_ITS ---
Problem List (1) NSTEMI (non-ST elevated myocardial infarction) Status: Acute (2) CAD in [place] artery Status: Chronic (3) S/P PTCA (percutaneous transluminal coronary angioplasty) Status: Chronic (4) S/P CABG (coronary artery bypass graft) Status: Chronic (5) PAD (peripheral artery disease) Status: Chronic (6) Essential hypertension Status: Chronic (7) Tobacco abuse Status: Chronic Reason for Consult Date of Consultation: 01/30/19 History of Present Illness: The patient is a 63 year old white male with an extensive past cardiovascular/peripheral vascular history who presents for evaluation of chest discomfort and subsequent findings with abnormal troponin I levels compatible with an acute non-ST segment elevation MA. The patient states that he has been having chest discomfort which he describes as mainly a burning type sensation in his throat and upper neck area on and off for some time now. He states it has been somewhat more prominent at night as opposed to during the day. Thus he has been working with his PCP for evaluation of possible GERD and/or hiatal hernia. However based upon his ongoing discomforts he presented to the [facility] emergency department today for further evaluation. He was found to have an abnormal troponin I level (+) and an abnormal ECG with sinus rhythm with ST and T wave abnormalities. A chest x-ray suggested post open heart surgery changes with no acute change. He has not been having ongoing orthopnea or PND. He has denied any peripheral pitting edema. There is been no report of near syncope or syncope. He states he takes medication at home. This is been aspirin and clopidogrel/Plavix. He states he has been on no other cardiovascular medications. He notes that 1 to 2 years ago he had a heart attack and was evaluated at [facility] where his primary diamond mounter, Dr. Guerra, practices medicine. At that time he underwent diagnostic cardiac catheterization and required multiple PCI procedures. He notes that approximately 7 to 8 years ago he underwent CABG at [facility]. He does not recall the details other than apparently he received 3 grafts. He states prior to that he had undergone evaluation care for peripheral vascular disease with the abdominal aorta at [facility]. He notes this was many years ago. He states that his peripheral vascular intervention/surgical procedure, in his opinion, suboptimal. He states that he has subsequently been evaluated and followed by peripheral vascular surgeon at [facility] in the [facility]. He states he has had multiple interventional/surgical procedures of his abdominal aorta, iliac artery system, and femoral artery system. [] Past Medical History Allergies/Adverse Reactions: Allergies Sulfa (Sulfonamide Antibiotics) Allergy (Verified 07/24/17 15:56) Unknown Home Medications: Ambulatory Orders Medication Instructions Recorded clopidogrel 75 mg tablet 150 mg PO QDAY 07/24/17 Aspirin E.C. [Ecotrin] 81 mg PO DAILY@0800 01/30/19 Naproxen Sodium [Aleve] 440 mg PO DAILY 01/30/19 Past Medical History (Chronic Problems): Chronic Problems (Last Updated 07/24/17 @ 15:58 by Rosa Wade) CAD in [place] artery (Chronic) S/P PTCA (percutaneous transluminal coronary angioplasty) (Chronic) S/P CABG (coronary artery bypass graft) (Chronic) PAD (peripheral artery disease) (Chronic) Tobacco abuse (Chronic) Essential hypertension (Chronic) Surgical History: angioplasty, coronary bypass surgery, - - Abdominal aortic/iliac/femoral artery intervention/surgery: Details unknown Smoking Status: Current every day smoker Alcohol: None Drugs: None Review of Systems - Review of Systems General: Denies: Fever, Night Sweats, Fatigue Cardiovascular: Reports: Chest Discomfort. Denies: Shortness of Breath, Orthopnea, PND, Peripheral Edema, Palpitations, Lightheadedness, Dizziness, Near Syncope, Syncope Respiratory: Denies: Cough, Sputum Production, Hemoptysis Gastrointestinal: Denies: Hematemesis, Hematochezia, Melena Genitourinary: Denies: Dysuria, Hematuria Skin: Denies: Rash Subjectve: This is a 63-year-old white male who appears to be resting reasonably comfortably at the moment in no acute distress. Objective: Vital Signs Temp Pulse Resp BP Pulse Ox 97.8 F 98 18 106/75 99 01/30/19 14:42 01/30/19 16:32 01/30/19 16:23 01/30/19 16:48 01/30/19 16:23 Oxygen Flow Rate (L/min) 2 Oxygen Delivery Method Nasal Cannula Weight: 204 lb 9.423 oz Body Mass Index (BMI) 29.3 Intake and Output for Last 24 Hours 01/28/19 01/29/19 01/30/19 23:59 23:59 23:59 Intake Total 0.8 / 0.8 Balance 0.8 / 0.8 General: Awake, Alert, Oriented x 3, Cooperative, No Acute Distress HEENT: Atraumatic, Normocephalic, PERRL, EOMI, Sclera Non Icteric, - - Positive xanthelasma appearing findings near the eyelids bilaterally Oral: Moist Mucosa Neck: Supple, Good ROM, No JVD Chest Wall: Midline Sternotomy Incision Lungs: Clear to auscultation Cardiovascular: Regular Rhythm, Normal S1, Normal S2 Vascular: Sanya Carotid Artery Bruits - Left greater than right, L Femoral Artery Bruit, Decreased R Dorsalis Pedal Pulse, Decreased L Dorsalis Pedal Pulse, Decreased R Posterior Tibial Pulse, Decreased L Posterior Tibial Pulse Abdomen: Bowel Sounds Present, Soft, Non Tender Extremities: Trace RLE Edema, Trace LLE Edema Neurological: No Focal Motor or Sensory Deficit Psych/Mental Status: Appropriate 01/30/19 14:45: WBC 11.8 H, RBC 5.04, Hgb 16.1, Hct 48.0, MCV 95.2 H, MCH 31.9, MCHC 33.5, Plt Count 290, MPV 9.4, Immature Gran % (Auto) 1.000 H, Neut % (Auto) 66.6, Lymph % (Auto) 22.2, [place] % (Auto) 6.3, Eos % (Auto) 3.1, Baso % (Auto) 0.8, Absolute Neuts (auto) 7.9 H, Nucleated RBC % 0 01/30/19 14:45: Sodium 139, Potassium 4.0, Chloride 109 H, Carbon Dioxide 22.0, Anion Gap 8, BUN 13, Creatinine 1.48 H, Est GFR (MDRD) Af Amer 62, Est GFR (MDRD) Non-Af 51 L, BUN/Creatinine Ratio 8.8 L, Glucose 149 H, Calcium 8.8, Troponin I 2.580 H* Rhythm: Sinus rhythm EKG: Sinus rhythm; possible left atrial enlargement; inferior MA of indeterminate age cannot be excluded; nonspecific ST and T wave abnormality: Consider myocardial ischemia-lateral CXR: Preliminary evaluation: As noted above Assessment/Plan 1. Acute non-ST segment elevation MA The patient presents with symptoms, abnormal troponin I levels, and an abnormal ECG all concerning for a clinical scenario compatible with an acute non-ST segment elevation MA. This is superimposed upon the patient's underlying history of CAD, PCI, and CABG. At the present time the patient is being evaluated. He is having follow-up laboratory studies, ECGs, etc. as deemed appropriate. He is receiving medical therapy. He is already been on aspirin therapy and clopidogrel/Plavix therapy at home. He is receiving additional medical therapy with nitrates and morphine sulfate. It would not be unreasonable to consider additional medical therapy with beta- blockers as well as anticoagulant therapy with IV heparin. The patient should be considered for further evaluation with diagnostic cardiac catheterization which depending upon the findings may lead to additional PCI evaluation. Based upon the patient's extensive peripheral vascular disease he was told that depending upon his case there is a possibility that cardiology may need to consult peripheral vascular surgery to assist in his evaluation and care. The patient states that he does not want to be evaluated by peripheral vascular surgery at [facility] based upon his past experience, which, according to him was a suboptimal experience. Thus, as the patient does not want to be evaluated by peripheral vascular surgery at [facility] he would need to be considered for transfer to a tertiary care center for additional evaluation and care. The patient also states that he does not want to return to [facility] in [place], [place] where he had his previous PCI procedures and CABG procedures. He states he would be willing to go to [facility] in the [place], [place] area if they could evaluate him from a cardiovascular standpoint. If this facility were unable to accommodate this patient's need than he would have to consider allowing himself to be transferred to another tertiary care center for further evaluation and care. 2. CAD status post PCI-remote status post CABG-remote The patient states that he has been followed by his primary urologist, Dr. Guerra, in [place], [place]. However he states he has not been the one that has performed his invasive procedures. He states he has been treated medically with aspirin and clopidogrel/Plavix. He states in the remote past another diamond mounter wanted to place him on additional medication which may have included lipid-lowering therapy. However he states his lipids have been okay and he has not needed such therapy. At the present time based upon his ongoing symptoms and objective findings he will need to continue medical management with adjustment as needed. He was told he would need to remain in the hospital for ongoing evaluation and care including, as noted above, further evaluation with diagnostic cardiac catheterization. He states that he was hopeful that he would be able to have his pain treated and he would be able to be released home and continue to follow with his physicians as an outpatient. He was told that this would not be recommended based upon the objective findings demonstrating an underlying acute coronary syndrome/acute non-ST segment elevation MA. 3. Peripheral artery disease He does have extensive peripheral artery disease. Based upon his examination there are concerns of carotid artery disease in addition to his previously diagnosed abdominal aorta, iliac, and femoral artery disease-of which the extent is unknown at this time. He states that his peripheral artery disease has been treated with his aspirin and his clopidogrel/Plavix as well. He states he has not followed with his peripheral vascular surgeon for at least a year. 4. Hypertension He states he was diagnosed at one time with hypertension. However he does not believe his blood pressures have been elevated and he has not required medical management. 5. Tobacco abuse He states he continues to smoke cigarettes despite his cardiovascular and peripheral vascular disease process. He states he does not smoke as many cigarettes as he used to. Comment: The patient's case was discussed at length with the patient, his daughter who was present at the time, and Dr. Zaragoza of the [facility] emergency department staff. Again the patient was hopeful to be released home for continued outpatient follow-up. His daughter was in agreement with the patient remaining in the hospital. It was recommended that the patient, for the aforementioned reasons, be transferred to a tertiary care [facility] for further evaluation and care. Dr. Zaragoza stated he would speak with the patient regarding his tertiary care center options and assist in arranging transfer to a tertiary care center for him. This note was generated with [employer] dictation software. It may contain incorrect words, spelling, and punctuation that were not noted in checking the note before signing.
[2019-01-30 17:17] LABS: Partial Thromboplast Time 25.5 Seconds (24.1-36.2)
[2019-01-30] MEDS: Heparin Injection (Vial) 5,000 UNIT/ML VIAL 7500 UNIT IV (17:47)
--- NOTE | 2019-01-30 17:58 | ED.RN ---
HEPARIN WAS ADMINISTERED AT 1750 AT 1400UNITS/HR. THIS NURSE ATTEMPTED SEVERAL TIMES TO SCAN THE MEDICATION AND FILL IN THE BLANKS FOR MEDICATION AND UNABLE TO COMPLETE. SHAYY BUCIO RN,CHARGE NURSE CALLED PHARMACY AND ATTEMPTED TO SCAN MEDICATION AND FILL IN THE BLANKS PROVIDED AND UNABLE. PHARMACY CHANGED THE ORDER IN THE MAR AND STILL UNABLE TO COMPLETE TRANSACTION.
== END 2019-01-30 19:38 | disposition short-term general hospital (02) ==
LOC: ED 14:58
PROVIDERS: Emergency Provider Emergency Medicine; Family Provider Family Medicine; PCP Family Medicine
DX: I21.4 Non-ST elevation (NSTEMI) myocardial infarction (principal); I25.10 Atherosclerotic heart disease of native coronary artery without angina pectoris; I12.9 Hypertensive chronic kidney disease with stage 1 through stage 4 chronic kidney disease, or unspecified chronic kidney disease; N18.9 Chronic kidney disease, unspecified; I73.9 Peripheral vascular disease, unspecified; F17.210 Nicotine dependence, cigarettes, uncomplicated; I25.2 Old myocardial infarction; Z79.82 Long term (current) use of aspirin; Z79.02 Long term (current) use of antithrombotics/antiplatelets; Z79.1 Long term (current) use of non-steroidal anti-inflammatories (NSAID); Z88.2 Allergy status to sulfonamides; Z95.1 Presence of aortocoronary bypass graft; Z95.5 Presence of coronary angioplasty implant and graft
CPT/HCPCS: 71045; 80048; 84484; 85025; 85730; 93005; 96365; 96366; 96375; 99285; A4216; J2405

== ENCOUNTER → 2019-04-13 08:26 | Outpatient (CLI) | payer MEDICARE, SELFPAY ==
[2019-03-18 12:59] VITALS: BMI 27.6
[2019-04-13 12:53] LABS: ALB/GLOB Ratio 0.7 RATIO (0.9-2.4); AST(SGOT) 15 U/L (15-37); Alanine Aminotransfer ALT/SGPT 19 U/L (16-61); Albumin, Serum 3.2 g/dL (3.2-5.0); Alkaline Phosphatase 177 U/L (45-117); Anion Gap 8 (5-15); BUN 14 mg/dL (7-18); BUN/Creat Ratio 9.2 RATIO (10-20); Calcium,Total 8.6 mg/dL (8.5-10.1); Chloride 107 mmol/L (98-107); Cholesterol 131 mg/dL (200); Creatinine, Serum 1.53 mg/dL (0.70-1.30); EST Glomerular Filtration Rate 49 mL/min (>60); Est Glom Filt Rate - Afr Amer 59 mL/min (>60); Globulin 4.3 g/dL (2.2-4.2); Glucose 87 mg/dL (74-106); High Density Lipoprotein 31 mg/dL; Potassium 4.3 mmol/L (3.5-5.1); Protein, Total 7.5 g/dL (6.4-8.2); Sodium Level 140 mmol/L (136-145); Triglycerides 78 mg/dL; Very Low Density Lipoprotein 16 mg/dL (5-40)
== END ==
PROVIDERS: Family Provider Family Medicine; PCP Family Medicine; Visit Provider Family Medicine
DX: I25.10 Atherosclerotic heart disease of native coronary artery without angina pectoris (principal); M06.9 Rheumatoid arthritis, unspecified
CPT/HCPCS: 36415; 80053; 80061

== ENCOUNTER 2019-07-04 09:21 | Emergency (ER) | payer MEDICARE, SELFPAY ==
[2019-03-18 12:59] VITALS: BMI 27.6
[2019-07-04 09:23] VITALS: BP 106/56; PULSE 90; RESP 18; TEMP 36.9; O2SAT 95; BMI 28.5
--- NOTE | 2019-07-04 09:35 | RAD_ITS ---
STUDY: X-RAY CHEST REASON FOR EXAM: Male, 63 years old. FATIGUE, COUGH WITH PHLEGM ,DYSPNEA, ABD PAIN. RECENT STENT HASN''T FELT RIGHT SINCE PER PT TECHNIQUE: PA and lateral views of the chest. COMPARISON: Comparison is made with prior examination dated January 30, 2019. FINDINGS: Mild increased markings in the right middle lobe suggestive of early infiltrate superimposed on chronic interstitial scarring. There is no demonstrated pleural abnormality. Sternal cerclage wires and vascular clips are present from a prior sternotomy and coronary artery bypass graft procedure (CABG). Normal mediastinum and chad. Normal visualized pulmonary arteries. Normal visualized aortic arch and descending thoracic aorta. There are mild degenerative changes of the visualized thoracic spine. Normal visualized ribs, clavicles, and shoulders. There is no demonstrated abnormality of the visualized soft tissue structures of the upper abdomen. RAD/Chest PA and Lateral IMPRESSION: Right middle lobe infiltrate superimposed on chronic scarring at the bases. Electronically Signed: Zhou Dumont, at 10:48 EST , Service support ,
--- NOTE | 2019-07-04 09:35 | EKG12_ITS ---
Test Reason : FATIGUE Blood Pressure : / mmHG Vent. Rate : 079 BPM Atrial Rate : 079 BPM P-R Int : 156 ms QRS Dur : 100 ms QT Int : 392 ms P-R-T Axes : 033 011 138 degrees QTc Int : 449 ms Normal sinus rhythm Inferior infarct , age undetermined ST & T wave abnormality, consider lateral ischemia Abnormal ECG Confirmed by AMELIA STEELE, MODESTO ([id number]), editorial project manager FLORI SUTHERLAND ([id number]) on 07/05/2019 8:20:48 AM Referred By: YOLANDA Confirmed By:MODESTO CISNEROS MD
--- NOTE | 2019-07-04 09:36 | ED.VIS.GEN ---
History of Present Illness Chief Complaint: Fatigue Detail of Chief Complaint: Dyspnea, productive cough, generalized weakness Informant: Patient, Family Onset: Weeks Context: Sudden Onset Timing: Continuous Quality: June 08 after angioplasty and stent placement Location: LM [place] Current Severity: Mild Maximum Severity: Moderate Worsened by: Dyspnea with exertion Relieved by: Rest Associated Symptoms: Productive cough ag sputum, dyspnea exertion and weakness/fatigue Narrative: Patient is a elderly gentleman with multiple medical problems who presents with fatigue since June 08. He had a stent placed at [facility]. He reports respiratory symptoms that started last Thursday, June 29. He reports productive cough since Thursday. He states the sputum is ag in color. He is a former smoker. He denies fever or chills. He denies ocular, visual or auditory symptoms. He denies rhinorrhea, congestion or postnasal drainage. He denies orthopnea or PND. He denies nausea, vomiting or diarrhea. Prior similar symptoms: Yes Recent Illness/Hospitalization: Yes - Past Medical History (1) Cardiomyopathy Status: Chronic (2) Essential hypertension Status: Chronic (3) Hyperlipidemia Status: Chronic (4) PAD (peripheral artery disease) Status: Chronic (5) S/P CABG (coronary artery bypass graft) Status: Chronic (6) S/P PTCA (percutaneous transluminal coronary angioplasty) Status: Chronic (7) NSTEMI (non-ST elevated myocardial infarction) Status: Resolved Past Medical History - Allergies and Home Meds Allergies/Adverse Reactions: Allergies Sulfa (Sulfonamide Antibiotics) Allergy (Verified 07/04/19 09:23) Unknown Primary Care Physician: Annika Villasenor MD [Primary Care Provider] - Prior records reviewed: Yes Surgical History: angioplasty, coronary bypass surgery, - - Abdominal aortic/iliac/femoral artery intervention/surgery: Details unknown Lives: Alone Smoking Status: Former smoker Alcohol: None Drugs: None Review of Systems General: Reports: Malaise. Denies: Chills, Fever, Subjective Eyes: Denies: Visual changes - bilaterally, Blurred Vision - bilaterally ENT: Denies: Bilateral ear pain, Rhinorrhea, Sore throat Cardiovascular: Denies: Chest pain, Palpitations Respiratory: Reports: Dyspnea, Cough, Sputum, Dyspnea on exertion. Denies: Orthopnea, Paroxysmal nocturnal dyspnea Gastrointestinal: Denies: Abdominal pain, Nausea, Vomiting, Diarrhea, Melena, Hematochezia Genitourinary: Denies: Dysuria, Hematuria, Frequency Musculoskeletal: Reports: Swelling. Denies: Myalgias, Arthralgias, Neck pain, Back pain, Extremity Pain Skin: Denies: Rash, Wounds Neurological: Denies: Headache, Weakness, Numbness Hematologic: Denies: Easy bruising, Easy bleeding Allergy: Denies: Uticaria, Swelling of the mouth Physical Exam Vital Signs/Narrative: Vital Signs Temp Pulse Resp BP Pulse Ox 07/04/19 09:23 98.5 F 90 18 106/56 L 95 Inital Vital Signs reviewed: Yes General: Well nourished, Well developed, No Acute Distress, - - Patient appears ill. He does not appear toxic. Head: Normocephalic, Atraumatic Eyes: Perrl, EOMI. Negative for: Pale conjunctiva, Scleral icterus ENT: Moist mucous membranes, No rhinorrhea Neck: Supple, Nontender, No lymphadenopathy, No JVD Cardiovascular: Regular rate, Regular rhythm, No murmurs, Normal S1, Normal S2 Respiratory: No distress, CTA bilaterally, Chest nontender Abdomen: Soft, Nontender, Nondistended, Normal bowel sounds Back: Nontender, Normal Inspection Extremities: Nontender, Edema - 1+ pitting bilaterally distal right and left leg and feet Skin: Normal color, No rash, No Trauma. Negative for: Cyanosis, Diaphoresis, Jaundice Neurological: Alert, Oriented x3, Cranial nerves II-XII grossly intact, Normal Strength, Normal Sensation Psychological: Normal affect, Normal Mood Diagnostic/Tx/Re-eval Chest X-Ray - ED: 2 View, Read by ED Physician, Normal, Heart, Mediastinum, Bony Structures, Right Infiltrate 07/04/19 09:35 Chest PA and Lateral [RAD] Stat Laboratory Results 07/04/19 07/04/19 07/04/19 09:45 09:45 10:06 WBC 12.9 H RBC 4.17 L Hgb 13.0 Hct 39.6 L MCV 95.0 H MCH 31.2 MCHC 32.8 RDW Std Deviation 47.7 H RDW Coeff of [place] 13.6 Plt Count 264 MPV 9.3 Immature Gran % (Auto) 0.700 Neut % (Auto) 75.8 H Lymph % (Auto) 13.6 L [place] % (Auto) 7.0 Eos % (Auto) 2.5 Baso % (Auto) 0.4 Absolute Neuts (auto) 9.8 H Absolute Lymphs (auto) 1.76 Nucleated RBC % 0 Sodium Cancelled 137 Potassium Cancelled 4.0 Chloride Cancelled 107 Carbon Dioxide Cancelled 23.0 Anion Gap Cancelled 7 BUN Cancelled 18 Creatinine Cancelled 1.80 H Estim Creat Clear Calc Cancelled 43.37 Est GFR (MDRD) Af Amer Cancelled 49 L Est GFR (MDRD) Non-Af Cancelled 41 L BUN/Creatinine Ratio Cancelled 10.0 Glucose Cancelled 143 H Calcium Cancelled 8.8 White count is elevated. Patient only has 1 sirs criteria. Patient is a candidate for outpatient therapy. Port score is 63. - Medical Decision Making With productive cough, dyspnea will obtain chest x-ray to assess for pneumonia. Since he does have pedal edema will also assess for congestive heart failure. CBC was obtained to assess white count and H&H. Since there is a history of chronic kidney disease a basic metabolic panel was obtained to assess renal function and electrolytes. EKG was obtained to evaluate for ischemia since he has significant atherosclerotic disease. ED Disposition - Plan for ED Patient: Disposition: Home or Assisted Living Diagnosis: Right middle lobe pneumonia Instructions: PNEUMONIA (Adult) Prescriptions: Doxycycline 100 mg PO BID #14 cap Transmission Status: Pending to [facility]/pharmacy #[id number] Referrals: Annika Villasenor MD [Primary Care Provider] - 3-5 Days Additional Instructions: Take antibiotic until gone
[2019-07-04 09:50] LABS: Absolute Lymphocyte Count 1.76 X10^3/uL (0.83-4.51); Absolute Neutrophil Count 9.8 X10^3/uL (2.0-7.7); Basophil# 0.05 X10^3/uL; Basophil% 0.4 % (0-1); Eosinophil# 0.32 X10^3/uL; Eosinophils% 2.5 % (0-5); Hematocrit 39.6 % (40-54); Lymphocyte # 1.76 X10^3/ul (4.0); Lymphocyte % 13.6 % (19-41); Mean Corp Hgb Conc 32.8 g/dL (32-36); Mean Corpuscular Hgb 31.2 pg (27.0-32.0); Mean Platelet Vol. 9.3 fl (6.2-12.0); NRBC Flagged by Analyzer 0 % (0-5); Neutrophil # 9.79 X10^3/uL (2.7-7.7); Neutrophil % 75.8 % (47-70); Platelet Count 264 K/mm3 (150-450); RBC Distribution Width CV 13.6 % (11.6-14.6); RBC Distribution Width SD 47.7 fl (35.1-43.9); Red Blood Count 4.17 M/mm3 (4.6-6.2); White Blood Count 12.9 K/mm3 (4.4-11.0)
[2019-07-04 10:26] LABS: Anion Gap 7 (5-15); BUN 18 mg/dL (7-18); Calcium,Total 8.8 mg/dL (8.5-10.1); Chloride 107 mmol/L (98-107); EST Glomerular Filtration Rate 41 mL/min (>60); Est Glom Filt Rate - Afr Amer 49 mL/min (>60); Estimated Creatinine Clearance 43.37 ml/min; Glucose 143 mg/dL (74-106); Sodium Level 137 mmol/L (136-145)
[2019-07-04] MEDS: Doxycycline 100 MG CAPSULE PO (11:15)
== END 2019-07-04 11:23 | disposition home or self-care (01) ==
PROVIDERS: Emergency Provider Emergency Medicine; PCP Family Medicine
DX: J18.9 Pneumonia, unspecified organism (principal); I42.9 Cardiomyopathy, unspecified; I10 Essential (primary) hypertension; E78.5 Hyperlipidemia, unspecified; I73.9 Peripheral vascular disease, unspecified; Z79.02 Long term (current) use of antithrombotics/antiplatelets; Z79.82 Long term (current) use of aspirin; Z79.899 Other long term (current) drug therapy; Z88.2 Allergy status to sulfonamides; I25.2 Old myocardial infarction; Z87.891 Personal history of nicotine dependence; Z95.1 Presence of aortocoronary bypass graft; Z95.5 Presence of coronary angioplasty implant and graft
CPT/HCPCS: 71046; 80048; 85025; 93005; 99284; A4216

== ENCOUNTER → 2019-07-07 15:44 | Outpatient (CLI) | payer MEDICARE, SELFPAY ==
[2019-07-04 09:23] VITALS: BMI 28.5
[2019-07-07 18:19] LABS: Absolute Lymphocyte Count 2.12 X10^3/uL (0.83-4.51); Absolute Neutrophil Count 7.1 X10^3/uL (2.0-7.7); Basophil# 0.09 X10^3/uL; Basophil% 0.8 % (0-1); Eosinophil# 0.76 X10^3/uL; Eosinophils% 6.9 % (0-5); Hematocrit 39.8 % (40-54); Hemoglobin 12.9 g/dL (13.0-16.5); Lymphocyte # 2.12 X10^3/ul (4.0); Lymphocyte % 19.4 % (19-41); Mean Corp Hgb Conc 32.4 g/dL (32-36); Mean Corpuscular Hgb 31.2 pg (27.0-32.0); Mean Corpuscular Volume 96.4 fL (80-94); Mean Platelet Vol. 9.8 fl (6.2-12.0); Monocyte# 0.75 X10^3/uL; Monocyte% 6.8 % (0-10); NRBC Flagged by Analyzer 0 % (0-5); Neutrophil # 7.05 X10^3/uL (2.7-7.7); Neutrophil % 64.5 % (47-70); Platelet Count 372 K/mm3 (150-450); RBC Distribution Width CV 13.4 % (11.6-14.6); RBC Distribution Width SD 47.9 fl (35.1-43.9); Red Blood Count 4.13 M/mm3 (4.6-6.2)
[2019-07-07 18:39] LABS: Anion Gap 5 (5-15); BUN 21 mg/dL (7-18); BUN/Creat Ratio 11.7 RATIO (10-20); Calcium,Total 8.8 mg/dL (8.5-10.1); Chloride 105 mmol/L (98-107); Creatinine, Serum 1.79 mg/dL (0.70-1.30); EST Glomerular Filtration Rate 41 mL/min (>60); Est Glom Filt Rate - Afr Amer 49 mL/min (>60); Glucose 145 mg/dL (74-106); Potassium 4.1 mmol/L (3.5-5.1); Sodium Level 135 mmol/L (136-145)
== END ==
PROVIDERS: PCP Family Medicine; Visit Provider Family Medicine
DX: J18.9 Pneumonia, unspecified organism (principal); I25.10 Atherosclerotic heart disease of native coronary artery without angina pectoris
CPT/HCPCS: 36415; 80048; 85025

== ENCOUNTER → 2019-08-08 12:32 | Outpatient (CLI) | payer MEDICARE, SELFPAY ==
--- NOTE | 2019-08-08 12:48 | CR.HP_ITS ---
CR - History & Physical - General Arrival date:: 08/08/19 Arrival time:: 13:00 Date of Referral:: 06/08/19 Date of CR Evaluation:: 08/08/19 Referring Physician: DR. CAMILO ROGERS @ [facility] Primary Diagnosis: NSTEMI W/PCI INTERVENTION CORONARY STENT PLACEMENT - History of Present Cardiac Event Onset Date: Enter Onset Date of cardiac illnesses in Comment field below Current stable Angina Pectoris:: No Acute Myocardial Infarction within 12 months:: Yes - 3 total MIs, LAST WAS IN MAY 2019 Coronary Artery Bypass Graft:: Yes - 2012 Heart valve replacement or repair:: No PTCA or coronary stenting:: Yes - MAY 2019 and repeat procedure Jun 2019 Heart or Heart-Lung Transplant:: No Heart Failure EF <35%:: No Type of Symptoms:: chest pains Were there any complications?: aquired pneumonia - resolved. - Medications Home Medications: Ambulatory Orders Medication Instructions Recorded clopidogrel 75 mg tablet 150 mg PO QDAY 07/24/17 Aspirin E.C. [Ecotrin] 81 mg PO DAILY@0800 01/30/19 atorvastatin 80 mg tablet 80 mg PO QHS 02/16/19 metoprolol tartrate 25 mg tablet 25 mg PO BID #180 tab 02/25/19 pantoprazole 40 mg tablet,delayed 40 mg PO DAILY #90 tab 02/25/19 release Doxycycline 100 mg PO BID #14 cap 07/04/19 lisinopril 5 mg tablet 5 mg PO DAILY 08/08/19 nitroglycerin 0.4 mg sublingual 0.4 mg SUBLINGUAL Q5-15M PRN 08/08/19 tablet - Allergies Allergies/Adverse Reactions: Allergies Sulfa (Sulfonamide Antibiotics) Allergy (Verified 07/04/19 09:23) Unknown - Sleep Disorder Evaluation Hx of Sleep Apnea: No Do you snore loudly (louder than talking or can be heard through closed doors)?: No Do you often feel tired/ fatigued/ sleepy during daytime?: Yes - in hospital showed desaturation during sleep Has anyone observed you stop breathing during sleep?: No History of Hypertension (for STOP score): Yes STOP Results: Positive Advanced Directives - Advanced Directives Power of Nutrition Tech: Yes - Magaly Olivarez (daughter) Living Will: No Advance Directives Information Provided: Yes Advance Directives on File: No DNR Order?:: No - MOLST See MOLST form: No Past Medical History - Problems and Co-Morbidities Patient Problems: Active and Suspected Problems (Last Updated 08/08/19 @ 12:58 by Rafael Escalera CRT, HAZARDOUS WASTE REMOVER, BS) Old myocardial infarction (Acute) - Past Medical Illness Medical History: Past Medical History (Last Updated 08/08/19 @ 12:58 by Rafael Escalera CRT, HAZARDOUS WASTE REMOVER, BS) Presence of stent in coronary artery (Chronic) Onset Date: ~08/2017 Z95.5 PCI/stent to LAD, D1 and LCX 09/16 Old myocardial infarction (Acute) I25.2 Atherosclerotic heart disease of [place] coronary artery without angina pectoris (Chronic) I25.10 Hyperlipidemia (Chronic) E78.5 PAD (peripheral artery disease) (Chronic) I73.9 Cardiomyopathy (Chronic) I42.9 Essential hypertension (Chronic) I10 History of pneumonia Z87.01 HTN (hypertension) I10 NSTEMI (non-ST elevated myocardial infarction) I21.4 Arthritis M19.90 CAD in [place] artery (Inactive) I25.10 Heart disease I51.9 - Past Surgical History Surgical History: Past Surgical History (Last Updated 08/08/19 @ 12:58 by Rafael Escalera CRT, HAZARDOUS WASTE REMOVER, BS) History of coronary artery bypass surgery (Chronic) Onset Date: ~2000 Z95.1 Abdominal aortic aneurysm without rupture (Resolved) I71.4 Repaired 1994 Presence of coronary angioplasty implant and graft Onset Date: ~06/08/19 Z95.5 Presence of coronary angioplasty implant and graft Onset Date: ~08/2017 Z95.5 PCI/stent to LAD, D1 and LCX 09/16 History of [id number] bypass Z95.828 History of open heart surgery Z98.890 S/P PTCA (percutaneous transluminal coronary angioplasty) (Inactive) Z98.61 Surgical History: angioplasty, coronary bypass surgery - 2012, - - Abdominal aortic/iliac/femoral artery intervention/surgery: Details unknown Social History - Smoking History Smoking Status: Former smoker Years Smokin Packs Smoked per Day: 1 Hx Smoking Cessation Date: 02/02/19 Hx Tobacco Use: Yes Hx Smoking Exposure: Yes - Alcohol Use Alcohol Usage: Yes - socially - Substance Abuse Hx Substance Use: No - Occupation Occupation (List type of work in comments):: Retired - disability - Hobbies, Recreation, Social Activities Hobbies: Sports - grandchildren sporting events, sprint car racing Recreational Activities: I am able to engage in most, but not all activities Social Environment - Status Marital Status: - Current Living Arrangements Living Environment:: Alone, Spouse - Children How many children do you have?: 1 Do any of your children live nearby?: Yes - NORBERT, MAGALY personal service representative - Safety Do you feel safe in your surroundings?: Yes - Assistance Do you need any assistance at home?: none Review of Systems - Review of Systems Hints: Right click = Denies ([place]ash). Left click = Reports ([place]) Review of Present Symptoms: Reports: Shortness of Breath with Exertion, Dizziness/Lightheadedness - positional hypotensive episodes, Fatigue, Appetite - Normal, Appetite - Special Diet - avoiding red meats, no sodium restriction., Sleep - Normal. Denies: Shortness of Breath at Rest, Angina, Heart Arrhythmia/Irregularities - Pain Is Patient Pain Free?: Yes Pain Location: none Pain Level: 0/10 Risk Factor Assessment - Chief Complaint Chief Complaint: Patient presents to CR today following recent NSTEMI and PCI w/stents in May and June 2019 - Vital Signs Temperature: 98.5 F Respiratory Rate: 18 Pulse Ox: 95 Blood Pressure: 106/56 Nailbeds:: pink - Pulse Pulse Rate: 90 Pulse Rhythm: Regular - Hypertension How long have you been treated?: 2013 On medication(s)?: yes Blood Pressure Sitting - Right Arm: 106/56 - Stress Stress: Recent - fiancial, medical issues, bills etc. - Blood Cholesterol/Lipids Total Cholesterol (mg/dL) Goal = less than 200 mg/dL: 118 - 07/18/2019 HDL Cholesterol (mg/dL) Goal = less than 40 mg/dL: 25 LDL Cholesterol (mg/dL) Goal = less than 70 mg/dL: 74 Triglycerides (mg/dL) Goal = less than 150 mg/dL: 97 - Diabetes Nutrition Referral for Diabetes: No - Obesity Height: 5 ft 11 in Weight:: 198 lb Weight in Pounds: 198.0 lbs Weight Source: Standing Scale Body Mass Index (BMI): 27.6 Nutritional Referral for Obesity: No - Physical Inactivity Physical Inactivity: Reg Exercise 30 min/day - summer months swims pool activity due to vascualr issues in lower extremeties., Recreational activity - walking, None - Risk Stratification Risk Guidelines: Lowest Risk: Risk Factor for Smoking, Risk Factor for Diabetes, Risk Factor for Obesity, Risk Factor for Hypertension, Risk Factor for Sedentary Lifestyle, Risk Factor for Depression, Moderate Risk: Risk Factor for Dyslipidemia - For Smoking Smoking Risk Guidelines: Smoking Low Risk: None or quit greater than 6 months ago. Smoking Moderate Risk: Smoker or quit 6 months or less ago. Smoking High Risk: Smoker - For Dyslipidemia Dyslipidemia Risk Guidelines: Low Risk: Moderate Risk: High Risk: 15-25% fat 25.1-29% fat >/= 30% fat. <7% sat fat 7-9% sat fat >9% sat fat. <150 mg chol 150-299 mg chol >/= 300 mg chol. LDL <100 LDL 100-129 LDL >/= 130. Chol/HDL ratio <5.0 Chol/HDL ratio 5.0-6.0 Chol/HDL ratio >6.0. Triglycerides <100 Triglycerides 100- 149 Triglycerides >/= 150 - For Diabetes Mellitus Diabetes Risk Guidelines: Diabetes Low Risk: HgA1c <6.5% and/or FBG <120. Diabetes Moderate Risk: HgA1c 6.6-7.9% and/or FBG 120-180. Diabetes High Risk: HgA1c >/= 8% and/or FBG >180 - For Obesity/Overweight Obesity/Overweight Risk Guidelines: Obesity Low Risk: BMI <25.0. Obesity Moderate Risk: BMI 25-29.9. Obesity High Risk: BMI >/= 30.0 - For Hypertension Hypertension Risk Guidelines: Hypertension Low Risk: Systolic <120 and Diastolic <80. Hypertension Moderate Risk: Systolic 120-139 and Diastolic 80-89. Hypertension High Risk: Systolic >/= 140 and Diastolic >/= 90 - For Sedentary Lifestyle Sedentary Lifestyle Risk Guidelines: Sedentary Lifestyle Low Risk: >/= 1,500 kcal/week. Sedentary Lifestyle Moderate Risk: 700-1,499 kcal/week. Sedentary Lifestyle High Risk: < 700 kcal/week - For Depression Depression Risk Guidelines: Depression Low Risk: Not clinically depress ed. Depression Moderate Risk: Mildly depressed. Depression High Risk: Clinically depressed Motivation - Motivation to Participate On a scale of 1 to 10, how prepared are you to commit to attending program?: 5 What do you see as barriers to successfully being able to complete the program?: financial aspects of participating; no co-insurance to Medicare Part A B What do you see as the benefits of succesfully completing the program? In other words, what do you hope to get out of participating in the program?: get my heart back in shape from 35% to regular, and energy level. Are there issues you are dealing with that will interfere with completing the program?: none Do you have a spouse or signficant other, family or friends who will help support you to complete the program?: yes.
--- NOTE | 2019-08-08 13:03 | CR.ITP_ITS ---
Diagnosis - General Information Admitting Diagnosis: PCI w/coronary stent placement Personal Learning Style:: Audio/Visual, Written Barriers to Learning: Vision Impairment Stage of change r/t lifestyle modifications:: Action Gave educational material for:: Treating Heart Disease, Emotions & Heart Disease, Stress Management & Relaxation, Sleep Disorders & Heart Disease, How The Heart Works, What it means to have Heart Disease, How Coronary Artery Disease is Diagnosed, Heart Procedures, What Heart Medications Do, Risk Factors & Modifications, Living an Active Life, Nutrition - Education/Goals Individual Counseling: Initial Assessment: Nicotine/Smoking, Abnormal Cholesterol Levels, High Blood Pressure Cardiac Rehabilitation Goals: 1. Maintain the individual as the primary focus of care. 2. To improve the patient's quality of life. 3. Identification of cardiac risk factors and provide cardiac risk factor management. 4. Enhance the psychosocial status of the patient. 5. Reconditioning enough to allow the patient to resume customary activities. 6. Control symptoms of cardiac disease Personal Goals: Initial Assessment: Improve energy level, Improve muscle strength and endurance, Control risk factors (learn risk factor modification) Scale for measuring improvement of personal goals: Enter appropriate number in Comments. 2 = Unchanged. 3 = Slightly Better. 4 = Moderate Improvement. 5 = Met my Goal - Diagnosis & Disease Process Outcomes/Goals: Pt IDs own risk factors & lifestyle modifications by Session 10, Verbalizes symptoms of angina & response by session 3., Pt independently manages Plan/Interventions: Assist Pt to ID & engage in lifestyle modification to reduce CVD risk, Instruct on individual risk factors, Review symptoms of angina & emergency actions, Review secondary diagnosis & identify educational needs. - Safety Referral to Physical Therapy: No Referral to [facility] Case Management: No Fall Risk Assessed:: Yes Assistive Devices:: None Exercise - Initial Assessment - Visit Date of Eval: 08/08/19 Session #:: 0 - new patient intake Mets: Pre-: >7 METS for 30 minutes by discharge - Physician Prescribed Exercise Modalities: Treadmill, Rower, Airdyne, NuStep Frequency: 3x/week for 12 weeks [36 sessions] Intensity: 60-80% of age predicted maximum heart rate reserve Current METSs:: 3.5 Target Heart Rate:: 101-132 - Outcomes & Goals Goals:: Verbalizes understanding of THR, RPE & goal METS by session 6, Documents in home exercise log/reports 30 min aerobic 5 day/wk by DC, Demonstrates accurate pulse taking by DC - Intervention & Plan Exercise Program Goals: Instruct on personal THR & RPE, Instruct on MET level & personal MET goal, Show patient to take own pulse /validate performance until accurate, Instruct on home exercise - Physical Activity Home Exercise Physical Activity - Home Exercise: Safe Exercise, Warm-up, Self-monitoring, Cool-Down, Home Exercise > 30 min Daily, Sitting Time <3 hours/daily - Outcomes & Goals Outcomes/Goals: Demonstrates correct Warm-up/exercise Cool-Down (S3) if = 2.5 METs, Verbalizes symptoms of exercise intolerance by Session 3 (S3), Demonstrate safe equipment use (S3) & follows exercise prescrition (6) - Intervention & Plan Plan/Intervention: Instruct warm-up & cool-down if exercising at > 2 METs, Instruct on symptoms of exercise intolerance & actions to take, Instruct & monitor on saf, Assess intial functional capacity & safety risk Nutrition - Initial Assessment - Program Goals Nutrition Program Goals: LDL <100 optimal. 100 - 129 Near optimal. 130 - 159 Borderline High. 160 - 189 High. Total Cholesterol <200 desirable. 200 - 239 Borderline High. >/= 240 High. HDL < 40 Low >/=60 High. Triglycerides <150 desirable. <199 optimal. VlDL 5 - 40. HgbA1C <7%. BMI <25 Patient has diagnosis of Hyperlipidemia (ICD E78)?: Yes - Visit Date of Assessment:: 08/08/19 Session #:: 0 - initial patient intake - Cholesterol/Lipids Triglycerides (mg/dL): 97 - 07/18/2019 Total Cholesterol (mg/dL): 118 LDL Cholesterol (mg/dL): 74 HDL Cholesterol (mg/dL): 25 Determine presence & major risk factors that modify LDL goal: Cigarette smoking, Hypertension or hypertensive medication, Low HDL cholesterol <40 mg/dL*, Age men > 45 years; women >/= 55 years Outcomes/Goals: Pt IDs own risk factors & lifestyle modifications by Session 10, Verbalizes symptoms of angina & response by session 3., Pt independently manages Intervention/Plan: Advocate for lipid panel cholesterol medication if applicable, Instruct on personal lipid levels & lipid goals/NCEP guidelines, Instruct on cholesterol Referral to dietitian:: Yes - Diabetes (Other Core Measures) Diabetes Type: Not Applicable - Weight Mgt (Other Care) Not Applicable: Yes Height: 5 ft 11 in Weight:: 198 lb BMI: 27.6 Diagnosis Overweight/Obesity BMI> 30% ICD-10 E66: No Diagnosis High BMI/Morbid Obesity BMI> 35% ICD-10 Z68: No Outcomes/Goals: Pt sets, maintains & shows weight loss goal & trend during rehab Intervention/Plan: Instruct on ideal BMI & set weight loss goal w/patient, Assist pt to ID & incorporate diet changes for weight loss by S9 - Healthy Eating Habits Will attend diet classes:: Yes Outcomes/Goals:: Consume diet rich in vegs,fruits,whole grain/high fiber,fish,lean meat, Limit sat/trans fats,cholesterol & added salts & sugars Intervention/Plan:: Assess current eating habits - Education Gave educational materials for:: Healthy eating Medical - Initial Assessment - Visit Date of Eval: 08/08/19 Session #:: 0 - initial patient intake - Medication Compliance Preventative Medication(s):: Aspirin, Clopidogrel/P2Y12 inhibit, Statin/lipid, Beta kaycee Outcomes/Goals: Verbalizes medications,desired effect & common side effects @ DC, Pt self-reports following medication regimen, Keeps card in wallet w/medications listed by DC Interventions/plans: Instruct on medication effects & side effects, Review medication list w/patient every two weeks, Instruct importance of taking meds as ordered & assist problem solving - Tobacco Use Tobacco Use: Cigarettes Do you use smokeless tobacco?: No Outcomes/Goals: Smoking cessation achieved or maintained by discharge, Identify aids/strategies for achieving smoking cessation by session 6 Interventions/plan: Instruct on effects of smoking & provide smoking cessation resource, Assist pt to set quit date & provide encouragement, Assist pt to develop strategies to achieve/maintain quit date, Assist pt w/nicotine replacement & medication for cessation success - Hypertension Hypertension Diagnosis:: Hypertension ICD-10 I10 Resting Blood Pressure:: 106/56 [place] [employer] Hypertension Guidelines: [place] [employer] Hypertension Guidelines. Normal BP Less than 120/80. Elevated BP 120/80. Hypertension Stage 1: BP 130-139/80-89. Hypertesnion Stage 2: BP 140 or higher/90 or higher. Hypertension Crisis: BP higher than 180/120 Outcomes/Goals: Able to verbalize/achieve optimal blood pressure <130/80, Incorporates diet changes & exercise for blood pressure control by DC Interventions/plan: Instruct on optimal blood pressure, hypertension & medications, Instruct on effects of sodium, alcohol, stress, exercise &hypertension - Tobacco Cessation Referral Smoking Cessation Referral:: Yes Individual Education/Counseling:: Yes - Dangers of smoking and heart disease Education Schedule Given:: Yes Psychosocial - Initial Assess - VIsit Date of Eval: 08/08/19 Session #:: 0 - initial patient intake Not Applicable: No History of previous Mental disease:: No - Target Goals Target Goals: Assess presence or absence of depression. Using a valid screening tool, maximizes coping skills. Positive support system - Psychosocial Test Tool Used:: [employer] QOL Cardiac, PHQ-9 Questionnaire phq-9 Severity: Severity. 1-4 Minimal Depression. 5-9 Mild Depression. 10-14 Moderate Depression. 15-19 Moderately Sever Depression. 20-27 Severe Depression. Rule: - Referral to Behavioral Health PS - Interventions: Yes Attend Stress Management Classes - Outcomes/Goals: See list Psychosocial Outcomes/Goals:: ID's personal stressors & 2 strategies to manage stress by discharge - Intervention/Plan: See List Interventions/Plan:: Assess stressors,coping strategies & signs of derpression on admission, Instruct patient to recognize signs & symptoms of depression, Instruct patient to recog Patient Health Questionnaire Initial Assessment 1. Little interest or pleasure in doing things: Not at all 2. Feeling down, depressed, or hopeless: Not at all 3. Trouble falling or staying asleep, or sleeping too much: Not at all 4. Feeling tired or having little energy: Several days 5. Poor appetite or overeating: Not at all 6. Feeling bad about yourself -- or that you are a failure or have let yourself or your family down: Not at all 7. Trouble concentrating on things, such as reading the newspaper or watching television: Not at all 8. Moving or speaking so slowly that other people could have noticed. Or the opposite - being so fidgety or restless that you have been moving around a lot more than usual: Not at all 9. Thoughts that you would be better off , or of hurting yourself in some way: Not at all Total Score: 1 IHSAN-Q SV Test - Statements CAD is a disease of the arteries in the heart: False Examples of risk factors for heart disease: True Angina is chest pain or discomfort: True The benefits of resistance training include: True Eating more meat and dairy products: False Anti-platelet medications such as aspirin are important: True The only effective way to manage stress: False An exercise warm-up slowly increases heart rate: True Prepared, processed foods usually have high sodium: True Depression is common after a heart attack: False The statin medications lower cholesterol: True To control blood pressure, lower the amount of sodium: True If someone gets chest discomfort during walking: False Transfats are partially hydrogenated vegetable oils: False Sleep apnea that is not treated increases the risk: True To control cholesterol, one should become a vegetarian: False Someone knows if he/she is exercising at the right level: I Don't Know Diabetes cannot be prevented with exercise & health eating: True Stress is a large risk for heart attack: True A diet that can help lower blood pressure is rich in: True - Total Score Total Correct Responses: 15 Self-Efficacy Initial Assessment We would like to know how confident you are in doing certain activities. Please select your confidence level for:: Select your confidence level for the following using the scale 1-10 where 1 is not at all confident and 10 is totally confident. Your score is the average of all 6 responses. Fatigue: How confident are you that you can keep the fatigue caused by your dise ase from interfering with the things you want to do? Select Number: 5 Physical Discomfort or Pain: How confident are you that you can keep the physica l discomfort or pain of your disease from interfering with the things you want to do? Select Number: 5 Emotional Distress: How confident are you that you can keep the emotional distress caused by your disease from interfering with the things you want to do? Select Number: 7 Other Symptoms or Health Problems: How confident are you that you can keep other symptoms or health problems from interfering with the things you want to do? Select Number: 7 Different Tasks and Activities: How confident are you that you can do the different tasks and activities needed to manage your health condition so as to reduce your need to see a doctor? Select Number: 7 Medication: How confident are you that you can do things other than just taking medication to reduce how much your illness affects your everyday life? Select Number: 8 Total Score:: 6 Nutrition Survey - Nutrition Survey Instructions Scoring Instructions: Scoring is as follows: Yes = 1 points. No = 0 point. Patient score that is >/=12 is considered to be at potential nutritional risk and could benefit from a referral to a registered dietitian. - Nutrition Survey Initial Have you lost >10 lbs over the past 2 months without trying?: No Are you following a special diet at home for diabetes, low fat, or low salt?: No Are you interested in meeting with a dietitian for help understanding your diet?: No Do you eat less than 3 meals a day?: Yes Do you eat fatty meats (greene, sausage, ribs, etc), fried foods, desserts, large amounts of salad dressings, margarine, butter, or cheese most days?: No Do you have food allergies? [Enter types in comment field]: No Do you eat in restaurants more than 3 times a week?: No Do you season food with salt, seasoning salt, or garlic salt?: No Do you used canned, boxed, frozen meals, or soups, seasoning packets?: Yes Total Score:: 2
[2019-08-08 13:30] VITALS: BP 106/56; PULSE 90; RESP 18; TEMP 36.9; O2SAT 95; BMI 27.6
[2019-08-08 14:05] VITALS: BP 106/56; BMI 27.6
== END ==
PROVIDERS: PCP Family Medicine; Referring Provider Internal Medicine Cardiovascular Disease; Visit Provider Internal Medicine Cardiovascular Disease
DX: I25.118 Atherosclerotic heart disease of native coronary artery with other forms of angina pectoris (principal); I25.2 Old myocardial infarction

== ENCOUNTER → 2020-09-26 15:04 | Outpatient (CLI) | payer MEDICARE, SELFPAY ==
[2019-08-08 13:30] VITALS: BMI 27.6
[2019-08-08 14:05] VITALS: BMI 27.6
--- NOTE | 2020-09-26 15:08 | RAD_ITS ---
STUDY: X-RAY - LEFT ANKLE REASON FOR EXAM: Male, 65 years old. Lateral pain and swelling. No known injury. TECHNIQUE: 3 view(s) of the ankle. COMPARISON: None. FINDINGS: Normal visualized distal tibia and fibula. Normal medial and lateral malleoli. Normal tibiotalar articulation and ankle mortise. Small plantar spur. The visualized subtalar, talonavicular, calcaneocuboid and tarsal articulations are normal. Soft tissue swelling. RAD/Ankle min 3 Views IMPRESSION: Soft tissue swelling. Small plantar spur. Electronically Signed: Zhou Dumont MD at 15:39 EDT , Service support ,
--- NOTE | 2020-09-26 15:08 | RAD_ITS ---
STUDY: X-RAY - LEFT FOOT CLINICAL: Male, 65 years old. PAIN TECHNIQUE: 3 view(s) of the foot. COMPARISON: None. FINDINGS: There is a plantar calcaneal spur. Normal visualized subtalar, talonavicular, calcaneocuboid, tarsal and tarsometatarsal articulations. Normal metatarsi. There is degenerative arthrosis of the metatarsophalangeal joint of the hallux with a hallux valgus deformity. Normal tibial and fibular sesamoid bones. Normal interphalangeal joint of the great toe. Normal phalanges of the great toe. Joint space narrowing and degenerative changes of the fourth and fifth metatarsal phalangeal joints. Normal interphalangeal joints and phalanges of the lesser toes. There is non-specific soft tissue swelling of the foot. RAD/Foot min 3 Views IMPRESSION: Soft tissue swelling. Joint space narrowing and degenerative changes at the fourth and fifth metatarsal phalangeal joints. Electronically Signed: Zhou Dumont MD at 15:40 EDT , Service support ,
== END ==
PROVIDERS: PCP Family Medicine; Referring Provider Family Medicine; Visit Provider Family Medicine
DX: M25.572 Pain in left ankle and joints of left foot (principal)
CPT/HCPCS: 73610; 73630

== ENCOUNTER → 2021-03-18 08:24 | Outpatient (CLI) | payer MEDICARE, SELFPAY ==
[2019-08-08 14:05] VITALS: BMI 27.6
--- NOTE | 2021-03-18 08:27 | ECHOCS_ITS ---
Reason For Study: CARDIOMYOPATHY Procedure This was a 2D Doppler, Color Flow transthoracic echocardiogram. The study was technically difficult. Contrast injection was performed. Exam performed in department. Left Ventricle Normal LV size. Left ventricular systolic function is normal. The estimated ejection fraction is 55 %. Segmental dysfunction with preserved ejection fraction (see wall motion). Diastolic function is indeterminate. Mid-Inferior: Severely Hypokinetic. Infero-Basal: Akinetic. The rest of the wall segments are normal. Right Ventricle Normal RV size. Normal systolic function. Atria Normal left atrium. Normal right atrium. Mitral Valve There is mild mitral annular calcification. Mild-Moderate (1-2+) eccentric mitral valve insufficiency. Tricuspid Valve Normal tricuspid valve. Mild (1+) tricuspid valve insufficiency. Pulmonary artery systolic pressure is 28 mmHg. Aortic Valve Trisinus/trileaflet aortic valve. Mild focal aortic valve calcification. Pulmonic Valve Normal pulmonic valve. Great Vessels Normal aortic root. The pulmonary artery is normal size. Normal inferior vena cava. Pericardium/Pleural No pericardial effusion. Medication 22 gauge I.V. with prn adaptor inserted into right arm. Diluted definity 3.0ml given slow IV push to enhance endocardial definition. MMode/2D Measurements & Calculations LVIDd: 4.8 cm IVSd: 1.0 cm Ao root diam: 3.3 cm LVIDs: 3.8 cm LVPWd: 0.94 cm RVDd: 3.0 cm FS: 20.6 % LAV(MOD-bp): 57.0 ml EDV(MOD-sp4): 132.0 ml EDV(MOD-sp2): 124.6 ml LAV(MOD-bp) Indexed: 27.1 ml/m2 ESV(MOD-sp4): 66.1 ml ESV(MOD-sp2): 72.3 ml LAV(MOD-sp2): 46.7 ml EF(MOD-sp4): 49.9 % EF(MOD-sp2): 42.0 % LAV(MOD-sp4): 59.6 ml SV(MOD-sp4): 65.9 ml SV(MOD-sp2): 52.3 ml LA A4 area: 20.2 cm2 LA dimension(2D): 4.0 cm RA A4 area: 14.1 cm2 Doppler Measurements & Calculations MV E max suman: 73.2 cm/sec Lat Peak E' Suman: 9.2 cm/sec Med Peak E' Suman: 3.9 cm/sec E/E' lat: 8.0 E/E' med: 18.6 Ao V2 max: 84.7 cm/sec LV V1 max: 75.7 cm/sec TR max suman: 241.5 cm/sec Ao max P.9 mmHg LV V1 max P.3 mmHg TR max P.3 mmHg ECHO/Echo Complete W/ Contrast Interpretation Summary Normal LV size. Left ventricular systolic function is normal. The estimated ejection fraction is 55 %. Mild-Moderate (1-2+) eccentric mitral valve insufficiency. Diastolic function is indeterminate. Ordering Physician: CAMILO ROGERS Referring Physician: DR NOE VOSS Performed By: Jessica Cuellar, LINDSEY, RVT
== END ==
PROVIDERS: PCP Family Medicine
DX: I25.5 Ischemic cardiomyopathy (principal)
CPT/HCPCS: 93306; Q9957; A4216; C8929; J3490

== ENCOUNTER 2021-03-31 12:19 | Inpatient (IN) | payer MEDICARE, SELFPAY ==
[2019-08-08 14:05] VITALS: BMI 27.6
[2021-03-31] VITALS (11 sets, daily range): BP systolic 96–130; BP diastolic 50–93; PULSE 55–84; RESP 14–18; TEMP 36.1–36.6; O2SAT 94–97; BMI 27.9; BMI 28.0
--- NOTE | 2021-03-31 12:49 | CT_ITS ---
EXAM: CT ABDOMEN AND PELVIS WITH INTRAVENOUS CONTRAST : 1955 CLINICAL INDICATION: LLQ pain TECHNIQUE: Helically acquired images were obtained of the abdomen and pelvis with intravenous contrast. This CT exam was performed using one or more of the following dose reduction techniques: automated exposure control, adjustment of the mA and/or kV according to patient size, and/or use of iterative reconstruction technique. This report was created using [employer] report generation technology. CONTRAST: IV 100mL [id number]-370 COMPARISON: None. FINDINGS: LOWER THORAX: There is minimal scarring in the lung bases. No cardiomegaly. No significant pericardial effusion. ABDOMEN: LIVER: Unremarkable. Homogeneous. No focal mass. GALLBLADDER AND BILE DUCTS: The gallbladder is contracted. There is a small gallstone present. No gallbladder distention or wall edema. No intra- or extrahepatic biliary ductal dilation. PANCREAS: Unremarkable. No focal cystic or solid mass. SPLEEN: Unremarkable. Normal size without focal cystic or solid mass. ADRENALS: Unremarkable. No nodules. KIDNEYS AND URETERS: Unremarkable. Normal renal size and position. No hydronephrosis. STOMACH AND BOWEL: There is thickening of the wall of the distal transverse and descending colon. There is minimal inflammation surrounding the distal descending colon which may represent colitis. No stomach or bowel distention. PELVIS: APPENDIX: No evidence of acute appendicitis. BLADDER: Unremarkable. REPRODUCTIVE: Unremarkable as visualized. No mass. ABDOMEN and PELVIS: INTRAPERITONEAL SPACE: Unremarkable. No ascites or other fluid collection. No free air. BONES/JOINTS: Unremarkable. No suspicious lytic or blastic abnormality. SOFT TISSUES: Unremarkable. No discrete abdominal or pelvic wall hernia. VASCULATURE: There are stents seen within the external iliac arteries bilaterally. There is an infrarenal aortic aneurysm measures 3.5 cm in AP diameter directly above an aortobiiliac stent graft. LYMPH NODES: Unremarkable. No enlarged lymph nodes. CT/Abdomen/Pelvis W IV Cont ONLY IMPRESSION: 1. Thickening of the wall the distal transverse and descending colon with minimal surrounding inflammation compatible with colitis. This may be due to an infectious or inflammatory process however ischemic colitis cannot be occluded. 2. Infrarenal abdominal aneurysm directly above an aortobiiliac stent correlation with old films available may be beneficial. Individualized dose optimization techniques were used for this CT. at 1427 Reported and signed by: Juan Miguel Gillespie MD Electronically Signed: Juan Miguel Gillespie MD at 14:26 EDT Tel , Service support ,
[2021-03-31 13:08] LABS: Absolute Neutrophil Count 11.9 X10^3/uL (2.0-7.7); Basophil# 0.08 X10^3/uL; Basophil% 0.5 % (0-1); Eosinophil# 0.38 X10^3/uL; Eosinophils% 2.4 % (0-5); Hematocrit 45.8 % (40-54); Lymphocyte % 15.8 % (19-41); Mean Corp Hgb Conc 32.8 g/dL (32-36); Mean Corpuscular Hgb 31.8 pg (27.0-32.0); Mean Platelet Vol. 9.5 fl (6.2-12.0); Monocyte# 0.79 X10^3/uL; NRBC Flagged by Analyzer 0 % (0-5); Neutrophil # 11.91 X10^3/uL (2.7-7.7); Neutrophil % 75.2 % (47-70); Platelet Count 359 K/mm3 (150-450); RBC Distribution Width CV 14.1 % (11.6-14.6); RBC Distribution Width SD 50.6 fl (35.1-43.9); Red Blood Count 4.72 M/mm3 (4.6-6.2); White Blood Count 15.8 K/mm3 (4.4-11.0)
[2021-03-31] MEDS: 0.9% Normal Saline 1,000 ML 999 ML IV (13:08)
[2021-03-31] MEDS: Ondansetron 4 MG/2 ML Vial IV (13:08)
[2021-03-31] MEDS: Morphine 4 MG/ML Syringe IV ×2 (13:08→17:17)
[2021-03-31 13:26] LABS: ALB/GLOB Ratio 0.6 RATIO (0.9-2.4); AST(SGOT) 12 U/L (15-37); Alanine Aminotransfer ALT/SGPT 14 U/L (16-61); Albumin, Serum 2.7 g/dL (3.2-5.0); Alkaline Phosphatase 167 U/L (45-117); Anion Gap 7 (5-15); BUN 14 mg/dL (7-18); BUN/Creat Ratio 9.8 RATIO (10-20); Calcium,Total 8.7 mg/dL (8.5-10.1); Chloride 107 mmol/L (98-107); Creatinine, Serum 1.43 mg/dL (0.70-1.30); EST Glomerular Filtration Rate 53 mL/min (>60); Est Glom Filt Rate - Afr Amer 64 mL/min (>60); Estimated Creatinine Clearance 53.18 ml/min; Globulin 4.3 g/dL (2.2-4.2); Glucose 137 mg/dL (74-106); Potassium 4.3 mmol/L (3.5-5.1); Sodium Level 137 mmol/L (136-145); Troponin-I HS 14 pg/mL (3.0-78.0)
[2021-03-31 15:18] LABS: Lactic Acid 1.8 mmol/L (0.4-1.9)
--- NOTE | 2021-03-31 15:19 | ED.VIS.GI ---
HPI HPI - GI History of Present Illness Chief Complaint: GI Bleed Narrative Narrative: Patient presenting with diarrhea which has had for the last day or so. He does not believe he ate anything abnormal or had any changes to his diet. He states that he had multiple episodes yesterday. Today he notes that he has had some blood in his stool. He states that he felt a little lightheaded walking into the emergency room. He has not been on any recent antibiotics. He complains of left lower quadrant abdominal pain. He has not had a fever. He states he has not been vomiting. PFSH PFS Medical History Arthritis Atherosclerotic heart disease of [place] coronary artery without angina pectoris CAD in [place] artery Cardiomyopathy Essential hypertension Heart disease History of pneumonia HTN (hypertension) Hyperlipidemia NSTEMI (non-ST elevated myocardial infarction) Old myocardial infarction PAD (peripheral artery disease) Presence of stent in coronary artery (~06/08/19) Home Medications clopidogrel 75 mg tablet 150 mg PO QDAY 07/24/17 [History Last Taken Unknown] aspirin 81 mg PO DAILY@0800 01/30/19 [History Last Taken Unknown] atorvastatin 80 mg tablet 80 mg PO QHS 02/16/19 [History Last Taken Unknown] metoprolol tartrate 25 mg tablet 25 mg PO BID #180 tab 02/25/19 [Rx Last Taken Unknown] lisinopril 5 mg tablet 5 mg PO DAILY 08/08/19 [History Last Taken Unknown] nitroglycerin 0.4 mg sublingual tablet 0.4 mg SUBLINGUAL Q5-15M PRN 08/08/19 [History Last Taken Unknown] methylprednisolone See Taper PO PRN PRN 03/31/21 [History Last Taken Unknown] Allergy/AdvReac Type Severity Reaction Status Date / Time Sulfa (Sulfonamide Allergy Unknown Verified 03/31/21 12:23 Antibiotics) Family History (Updated 03/31/21 @ 17:16 by Galo SPEARS) Father CAD (coronary artery disease) Mother Cancer CAD (coronary artery disease) Surgical History Abdominal aortic aneurysm without rupture History of luryx-dggcs-pzcsgra bypass History of coronary artery bypass surgery (~2000) History of open heart surgery Presence of coronary angioplasty implant and graft (~06/08/19) S/P PTCA (percutaneous transluminal coronary angioplasty) Social History (Updated 03/31/21 @ 17:16 by Galo SPEARS) Smoking Status: Former smoker alcohol intake: current alcohol intake frequency: a few times a week Alcohol type: beer and hard liquor substance use type: does not use ROS ROS ED Constitutional Constitutional ED: Denies chills or fever(s) ENT ENT ED: Denies rhinorrhea or sore throat Cardiovascular Cardiovascular: Denies chest pain or palpitations Respiratory/Chest Respiratory/Chest: Denies cough, dyspnea or sputum Gastrointestinal Gastrointestinal: Reports abdominal pain, diarrhea and other Details: Bloody stool Genitourinary Genitourinary ED: Denies dysuria or hematuria Musculoskeletal Musculoskeletal: Denies arthralgias or myalgias Integumentary Denies abscess or rash Neurologic Neurologic: Denies headache(s) or paresthesias EXAM Physical Exam Const Vital Signs: 03/31/21 12:20 03/31/21 13:14 03/31/21 13:16 Temperature 96.9 F L Temperature Source Temporal Pulse Rate 84 72 Pulse Rate [Lying] 72 Pulse Rate [Sitting] 74 Pulse Rate [Standing] 72 Respiratory Rate 16 Blood Pressure 130/93 H 124/53 H Blood Pressure [Lying] 112/64 Blood Pressure [Sitting] 108/65 Blood Pressure [Standing] 96/61 Blood Pressure Mean 105 76 Blood Pressure Mean [Lying] 80 Blood Pressure Mean [Sitting] 79 Blood Pressure Mean [Standing] 72 Pulse Ox 97 Oxygen Delivery Method Room Air 03/31/21 15:00 Temperature Temperature Source Pulse Rate 71 Pulse Rate [Lying] Pulse Rate [Sitting] Pulse Rate [Standing] Respiratory Rate Blood Pressure 120/58 L Blood Pressure [Lying] Blood Pressure [Sitting] Blood Pressure [Standing] Blood Pressure Mean 78 Blood Pressure Mean [Lying] Blood Pressure Mean [Sitting] Blood Pressure Mean [Standing] Pulse Ox Oxygen Delivery Method Positive well nourished General Appearance ED: NAD; Negative for pallor HEENT Reports moist mucous membranes normocephalic and atraumatic Eyes PERRL and EOMs intact bilaterally Resp normal respiratory effort and clear to auscultation bilaterally Cardio regular rate and regular rhythm GI Palpation: soft and tender LLQ Neuro Sensorium / Orientation: alert and oriented to person Psych mental status grossly normal Skin General Skin Exam: Negative for jaundice or pallor Rashes: no rashes MDM MDM MDM Narrative Medical decision making narrative: Patient presenting with left lower quadrant abdominal pain and diarrhea which started yesterday and progressed overnight to bloody bowel movements. He is not had any bloody bowel movements in the ED. His CBC shows that his white count is 15.8. Hemoglobin is 15 and hematocrit 45.8. Platelets are normal at 359. Creatinine is actually improved at 1.43. LFTs are normal. Lactic acid is within normal limits at 1.8. Patient's orthostatic vitals were positive in the ED. After this he was given a liter of IV fluids. I suspect that his hemoglobin is still falsely elevated given the orthostatic hypotension and that the patient does not have prerenal azotemia. His BUN is also not very elevated for a GI bleed. Patient was given morphine for pain x2 and Zofran for nausea. CT of the abdomen pelvis showed signs of colitis of the transverse and descending colon p and there was also an infrarenal abdominal aneurysm directly above an aortobiiliac stent. Patient was discussed with the hospitalist and Dr. Sarabia who is on-call for GI. Clinically the story does sound like colitis and possibly ischemic colitis given the patient's history of vascular issues. We did speak at length about the possibility of a shunt associated with his graft to the bowel and we feel that this is less likely at this time. Patient was typed and screened. He does not currently need blood. I did order an H&H and follow-up to see if his blood had changed. Dr. Sarabia came to see the patient in the ED and will follow along with the hospitalist. Impression: 1. GI bleed stable 2. Ischemic colitis 3. Orthostatic hypotension Lab Data Attestation: I reviewed the patient's lab results. Labs: Laboratory Results - last 24 hr 03/31/21 03/31/21 03/31/21 12:55 12:55 12:55 WBC 15.8 H RBC 4.72 Hgb 15.0 Hct 45.8 MCV 97.0 H MCH 31.8 MCHC 32.8 RDW Std Deviation 50.6 H RDW Coeff of [place] 14.1 Plt Count 359 MPV 9.5 Immature Gran % (Auto) 1.100 H Neut % (Auto) 75.2 H Lymph % (Auto) 15.8 L [place] % (Auto) 5.0 Eos % (Auto) 2.4 Baso % (Auto) 0.5 Absolute Neuts (auto) 11.9 H Absolute Lymphs (auto) 2.50 Nucleated RBC % 0 Sodium 137 Potassium 4.3 Chloride 107 Carbon Dioxide 23.0 Anion Gap 7 BUN 14 Creatinine 1.43 H Estim Creat Clear Calc 53.18 Est GFR (MDRD) Af Amer 64 Est GFR (MDRD) Non-Af 53 L BUN/Creatinine Ratio 9.8 L Glucose 137 H Lactic Acid Calcium 8.7 Total Bilirubin 0.90 AST 12 L ALT 14 L Alkaline Phosphatase 167 H Troponin I High Sens 14 Total Protein 7.0 Albumin 2.7 L Globulin 4.3 H Albumin/Globulin Ratio 0.6 L Blood Type A NEGATIVE Antibody Screen NEGATIVE 03/31/21 03/31/21 14:48 15:54 WBC 15.1 H RBC 4.29 L Hgb 13.8 Hct 41.9 MCV 97.7 H MCH 32.2 H MCHC 32.9 RDW Std Deviation 51.8 H RDW Coeff of [place] 14.3 Plt Count 323 MPV 9.2 Immature Gran % (Auto) 0.900 Neut % (Auto) 72.8 H Lymph % (Auto) 18.0 L [place] % (Auto) 5.2 Eos % (Auto) 2.6 Baso % (Auto) 0.5 Absolute Neuts (auto) 11.0 H Absolute Lymphs (auto) 2.72 Nucleated RBC % 0 Sodium Potassium Chloride Carbon Dioxide Anion Gap BUN Creatinine Estim Creat Clear Calc Est GFR (MDRD) Af Amer Est GFR (MDRD) Non-Af BUN/Creatinine Ratio Glucose Lactic Acid 1.8 Calcium Total Bilirubin AST ALT Alkaline Phosphatase Troponin I High Sens Total Protein Albumin Globulin Albumin/Globulin Ratio Blood Type Antibody Screen Radiography Diagnostic Testing: Clinical Impression(s) from Imaging Studies Abdomen/Pelvis CT 03/31/21 12:49 IMPRESSION: 1. Thickening of the wall the distal transverse and descending colon with minimal surrounding inflammation compatible with colitis. This may be due to an infectious or inflammatory process however ischemic colitis cannot be occluded. 2. Infrarenal abdominal aneurysm directly above an aortobiiliac stent correlation with old films available may be beneficial. Individualized dose optimization techniques were used for this CT. at 1427 Reported and signed by: Juan Miguel Gillespie MD Electronically Signed: Juan Miguel Gillespie MD at 14:26 EDT Tel , Service support , Discharge Plan Triage Chief Complaint: GI Bleed ED Provider: Nomi Garcia Dx/Rx/DC Orders Primary Care Provider: Annika Villasenor
--- NOTE | 2021-03-31 15:39 | NURSING ---
HOSPITALIST FOR DR MONGE
[2021-03-31 16:02] LABS: Absolute Lymphocyte Count 2.72 X10^3/uL (0.83-4.51); Basophil# 0.07 X10^3/uL; Basophil% 0.5 % (0-1); Eosinophils% 2.6 % (0-5); Hematocrit 41.9 % (40-54); Hemoglobin 13.8 g/dL (13.0-16.5); Lymphocyte # 2.72 X10^3/ul (0.83-4.51); Mean Corp Hgb Conc 32.9 g/dL (32-36); Mean Corpuscular Hgb 32.2 pg (27.0-32.0); Mean Corpuscular Volume 97.7 fL (80-94); Mean Platelet Vol. 9.2 fl (6.2-12.0); Monocyte# 0.79 X10^3/uL; Monocyte% 5.2 % (0-10); NRBC Flagged by Analyzer 0 % (0-5); Neutrophil # 11.02 X10^3/uL (2.7-7.7); Neutrophil % 72.8 % (47-70); Platelet Count 323 K/mm3 (150-450); RBC Distribution Width CV 14.3 % (11.6-14.6); RBC Distribution Width SD 51.8 fl (35.1-43.9); Red Blood Count 4.29 M/mm3 (4.6-6.2); White Blood Count 15.1 K/mm3 (4.4-11.0)
--- NOTE | 2021-03-31 17:02 | PCM.HP.STD ---
Documented by User: Galo SPEARS 03/31/21 17:30 HPI - General HPI Narrative CHEY ROSADO is a 65-year-old male who presents to the ED at [facility] on 03/31/2021 with a chief complaint of bright red blood per rectum. Patient reports that yesterday and this morning he passed multiple bloody bowel movements. Patient does endorse some left lower quadrant abdominal pain. Patient denies being on antibiotics, however is on aspirin and Plavix daily. Patient denies any hematemesis. Vital signs in the ED her temp of 96.9 ?F, HR of 71, BP of 130/67, respiratory rate 14. CBC does demonstrate a white count 15,000, although hemoglobin is stable at 13.8. BMP shows a mildly elevated creatinine at 1.4, baseline appears around 1.3. CT of the abdomen/pelvis demonstrates thickening of the distal and transverse colon with colitis. Patient was given morphine, Zofran and fluids in the ED. Dr. Sarabia, from GI, was consulted and recommends that patient be brought into the hospital for observation and possible colonoscopy. [facility] Medical History Arthritis Atherosclerotic heart disease of [place] coronary artery without angina pectoris CAD in [place] artery Cardiomyopathy Essential hypertension Heart disease History of pneumonia HTN (hypertension) Hyperlipidemia NSTEMI (non-ST elevated myocardial infarction) Old myocardial infarction PAD (peripheral artery disease) Presence of stent in coronary artery (~06/08/19) Home Medications clopidogrel 75 mg tablet 150 mg PO QDAY 07/24/17 [History Last Taken Unknown] aspirin 81 mg PO DAILY@0800 01/30/19 [History Last Taken Unknown] atorvastatin 80 mg tablet 80 mg PO QHS 02/16/19 [History Last Taken Unknown] metoprolol tartrate 25 mg tablet 25 mg PO BID #180 tab 02/25/19 [Rx Last Taken Unknown] lisinopril 5 mg tablet 5 mg PO DAILY 08/08/19 [History Last Taken Unknown] nitroglycerin 0.4 mg sublingual tablet 0.4 mg SUBLINGUAL Q5-15M PRN 08/08/19 [History Last Taken Unknown] pantoprazole 40 mg PO DAILY 03/31/21 [History Last Taken Unknown] Allergy/AdvReac Type Severity Reaction Status Date / Time Sulfa (Sulfonamide Allergy Unknown Verified 03/31/21 12:23 Antibiotics) Family History (Updated 03/31/21 @ 17:16 by Galo SPAERS) Father CAD (coronary artery disease) Mother Cancer CAD (coronary artery disease) Surgical History Abdominal aortic aneurysm without rupture History of jmshj-qswcs-lzswktx bypass History of coronary artery bypass surgery (~2000) History of open heart surgery Presence of coronary angioplasty implant and graft (~06/08/19) S/P PTCA (percutaneous transluminal coronary angioplasty) Social History (Updated 03/31/21 @ 17:16 by Galo SPEARS) Smoking Status: Former smoker alcohol intake: current alcohol intake frequency: a few times a week Alcohol type: beer and hard liquor substance use type: does not use ROS Constitutional Constitutional: Reports weakness; Denies anorexia, change in weight, chills, fatigue, fever(s), malaise or night sweats Eyes Eyes: Denies blurry vision, change in eye color, change in vision, discharge from eye(s), double vision, erythema, eye pain, loss of vision or other ENT HEENT: Denies abnormal hearing, dysphagia, ear pain, epistaxis, headache(s), hearing loss, nasal congestion, nasal discharge, post nasal drip, sinus pressure, sore throat or other Cardiovascular Cardiovascular: Reports lightheadedness; Denies chest pain, claudication, dyspnea on exertion, edema, orthopnea, palpitations, paroxysmal nocturnal dyspnea, rapid heart rate, syncope or other Respiratory/Chest Respiratory/Chest: Denies cough, dyspnea, excessive phlegm production, hemoptysis, productive cough, shortness of breath at rest, shortness of breath with exertion, wheezing or other Gastrointestinal Gastrointestinal: Reports diarrhea, hematochezia and loose stools; Denies abdominal pain, coffee ground emesis, constipation, dyspepsia, hematemesis, melena, nausea, vomiting or other Genitourinary Genitourinary: Denies burning urination, difficulty urinating, dysuria, hematuria, nocturia, urinary frequency, urinary hesitancy, urinary incontinence, urinary urgency or other Musculoskeletal Musculoskeletal: Denies arthralgias, back pain, joint pain, joint stiffness, joint swelling, myalgias, neck pain or other Neurologic Neurologic: Denies abnormal gait, abnormal speech, confusion, disequilibrium, dizziness, focal weakness, headache(s), numbness, paresthesias, seizure-like activity, seizures, syncope, tingling, tremor(s) or other Psychiatric Psychiatric: Denies anxiety, depression, homicidal ideation, suicidal ideation or other Endocrine Endocrinology: Denies change in body appearance, cold intolerance, excessive sweating, heat intolerance, polydipsia, polyuria or other Hematologic/Lymphatic Hematologic/Lymphatic: Denies anemia, easy bleeding, easy bruising, lymphadenopathy or other Allergic/Immunologic Allergic/Immunologic: Denies rhinitis, hives, eczemia, asthma or other Vital Signs Vital Signs Vital Signs: 03/31/21 12:20 03/31/21 13:14 03/31/21 13:16 Temperature 96.9 F L Temperature Source Temporal Pulse Rate 84 72 Pulse Rate [Lying] 72 Pulse Rate [Sitting] 74 Pulse Rate [Standing] 72 Respiratory Rate 16 Blood Pressure 130/93 H 124/53 H Blood Pressure [Lying] 112/64 Blood Pressure [Sitting] 108/65 Blood Pressure [Standing] 96/61 Blood Pressure Mean 105 76 Blood Pressure Mean [Lying] 80 Blood Pressure Mean [Sitting] 79 Blood Pressure Mean [Standing] 72 Pulse Ox 97 Oxygen Delivery Method Room Air 03/31/21 15:00 03/31/21 16:52 Temperature Temperature Source Pulse Rate 71 71 Pulse Rate [Lying] Pulse Rate [Sitting] Pulse Rate [Standing] Respiratory Rate 14 Blood Pressure 120/58 L 130/67 H Blood Pressure [Lying] Blood Pressure [Sitting] Blood Pressure [Standing] Blood Pressure Mean 78 88 Blood Pressure Mean [Lying] Blood Pressure Mean [Sitting] Blood Pressure Mean [Standing] Pulse Ox Oxygen Delivery Method Weight Weight: 195 lb Body Mass Index (BMI) 27.9 Physical Exam Const alert, oriented x3 and no apparent distress General Appearance: cooperative HEENT normocephalic, head/scalp atraumatic and hearing grossly normal bilaterally Eyes PERRL, EOMs intact bilaterally and conjunctivae normal Neck no lymphadenopathy, supple and no JVD Resp normal respiratory effort, no retractions, no use of accessory muscles and clear to auscultation bilaterally Cardio regular rate, regular rhythm, no murmurs and no JVD GI normal to inspection, nondistended, normoactive bowel sounds Palpation: tender LLQ Extremity normal to inspection, full ROM and no clubbing, cyanosis or edema Peripheral Pulses: Yes pulses 2+ throughout Skin no rashes or lesions noted, no wounds, skin turgor normal and no jaundice Neuro CN's II-XII intact bilaterally Psych affect normal Results Lab / Micro Data Result Diagrams: 03/31/21 18:05 03/31/21 12:55 Labs: Laboratory Results - last 24 hr 03/31/21 12:55: WBC 15.8 H, RBC 4.72, Hgb 15.0, Hct 45.8, MCV 97.0 H, MCH 31.8, MCHC 32.8, RDW Std Deviation 50.6 H, RDW Coeff of [place] 14.1, Plt Count 359, MPV 9.5, Immature Gran % (Auto) 1.100 H, Neut % (Auto) 75.2 H, Lymph % (Auto) 15.8 L, [place] % (Auto) 5.0, Eos % (Auto) 2.4, Baso % (Auto) 0.5, Absolute Neuts (auto) 11.9 H, Absolute Lymphs (auto) 2.50, Nucleated RBC % 0 03/31/21 12:55: Sodium 137, Potassium 4.3, Chloride 107, Carbon Dioxide 23.0, Anion Gap 7, BUN 14, Creatinine 1.43 H, Estim Creat Clear Calc 53.18, Est GFR (MDRD) Af Amer 64, Est GFR (MDRD) Non-Af 53 L, BUN/Creatinine Ratio 9.8 L, Glucose 137 H, Calcium 8.7, Total Bilirubin 0.90, AST 12 L, ALT 14 L, Alkaline Phosphatase 167 H, Troponin I High Sens 14, Total Protein 7.0, Albumin 2.7 L, Globulin 4.3 H, Albumin/Globulin Ratio 0.6 L 03/31/21 12:55: Blood Type A NEGATIVE, Antibody Screen NEGATIVE 03/31/21 14:48: Lactic Acid 1.8 03/31/21 15:54: WBC 15.1 H, RBC 4.29 L, Hgb 13.8, Hct 41.9, MCV 97.7 H, MCH 32.2 H, MCHC 32.9, RDW Std Deviation 51.8 H, RDW Coeff of [place] 14.3, Plt Count 323, MPV 9.2, Immature Gran % (Auto) 0.900, Neut % (Auto) 72.8 H, Lymph % (Auto) 18.0 L, [place] % (Auto) 5.2, Eos % (Auto) 2.6, Baso % (Auto) 0.5, Absolute Neuts (auto) 11.0 H, Absolute Lymphs (auto) 2.72, Nucleated RBC % 0 Micro: Microbiology 03/31/21 12:55 Stool Stool Occult Blood (MADDI) - Final Occult Blood Positive Radiology Impression Abdomen/Pelvis CT 03/31/21 12:49 IMPRESSION: 1. Thickening of the wall the distal transverse and descending colon with minimal surrounding inflammation compatible with colitis. This may be due to an infectious or inflammatory process however ischemic colitis cannot be occluded. 2. Infrarenal abdominal aneurysm directly above an aortobiiliac stent correlation with old films available may be beneficial. Individualized dose optimization techniques were used for this CT. at 1427 Reported and signed by: Juan Miguel Gillespie MD Electronically Signed: Juan Miguel Gillespie MD at 14:26 EDT Tel , Service support , Assessment & Plan Assessment/Plan (1) LGI bleed: (2) Essential hypertension: (3) Cardiomyopathy: (4) Atherosclerotic heart disease of [place] coronary artery without angina pectoris: (5) Abdominal aortic aneurysm without rupture: (6) History of coronary artery bypass surgery: (7) Presence of stent in coronary artery: (8) Old myocardial infarction: PLAN: Patient is a 65-year-old male presents to the hospital with a chief complaint of bright red blood per rectum and loose stools. Patient will be admitted for medical observation and evaluation by Dr. Sarabia. 1) lower GI bleed Patient presents with a 1 day history of ongoing bright red blood per rectum. Vital signs in the ED are stable and do not demonstrate hemodynamic compromise. CBC does demonstrate a white count of 15,000, however hemoglobin is currently stable at 13.8. Stool guaiac was positive. CT of abdomen pelvis as above. Plan; placed on PCU for medical observation, GI consult ordered, hold aspirin and Plavix, trend H&H every 6 hours, CBC and BMP in a.m., IV Protonix ordered, Zofran as needed ordered, Mylanta as needed, Tylenol as needed. 2) leukocytosis Unclear etiology, possibly related to chronic steroid use for breakthrough pain. Medrol Dosepak on hold. Continue to trend CBC. 3) CAD status post stent Continue metoprolol and as needed nitroglycerin. Hold aspirin and Plavix. 4) hyperlipidemia Continue statin. 5) HTN Hold lisinopril, continue metoprolol. DVT prophylaxis - SCD's. Patient seen by Galo Anthony PA-C, under the supervision of Dr. Spann. Documented by User: Dr. Hue Spann MD 03/31/21 22:07 HPI - General General Date of Admission: 03/31/21 [facility] Medical History Arthritis Atherosclerotic heart disease of [place] coronary artery without angina pectoris CAD in [place] artery Cardiomyopathy Essential hypertension Heart disease History of pneumonia HTN (hypertension) Hyperlipidemia NSTEMI (non-ST elevated myocardial infarction) Old myocardial infarction PAD (peripheral artery disease) Presence of stent in coronary artery (~06/08/19) Home Medications clopidogrel 75 mg tablet 150 mg PO QDAY 07/24/17 [History Last Taken Unknown] aspirin 81 mg PO DAILY@0800 01/30/19 [History Last Taken Unknown] atorvastatin 80 mg tablet 80 mg PO QHS 02/16/19 [History Last Taken Unknown] metoprolol tartrate 25 mg tablet 25 mg PO BID #180 tab 02/25/19 [Rx Last Taken Unknown] lisinopril 5 mg tablet 5 mg PO DAILY 08/08/19 [History Last Taken Unknown] nitroglycerin 0.4 mg sublingual tablet 0.4 mg SUBLINGUAL Q5-15M PRN 08/08/19 [History Last Taken Unknown] pantoprazole 40 mg PO DAILY 03/31/21 [History Last Taken Unknown] Allergy/AdvReac Type Severity Reaction Status Date / Time Sulfa (Sulfonamide Allergy Unknown Verified 03/31/21 12:23 Antibiotics) Family History (Updated 03/31/21 @ 17:16 by Galo SPEARS) Father CAD (coronary artery disease) Mother Cancer CAD (coronary artery disease) Surgical History Abdominal aortic aneurysm without rupture History of gunju-dzmyf-epqijre bypass History of coronary artery bypass surgery (~2000) History of open heart surgery Presence of coronary angioplasty implant and graft (~06/08/19) S/P PTCA (percutaneous transluminal coronary angioplasty) Social History (Updated 03/31/21 @ 17:16 by Galo SPEARS) Smoking Status: Former smoker alcohol intake: current alcohol intake frequency: a few times a week Alcohol type: beer and hard liquor substance use type: does not use Results Lab / Micro Data Result Diagrams: 03/31/21 18:05 03/31/21 12:55 Charges/Coding Addendum Addendum: This patient was seen in conjunction with REGAN Mercer. I have independently interviewed and examined the patient and reviewed pertinent historical, laboratory, and other data. Please refer to REGAN Mercer's note for his patient's presentation, findings, and recommendations. I have reviewed and his note and concur with his documentation 65 y/o male with PMHx of CAD s/p CABG, s/p multiple stents, PAD, h/o infrarenal aortic aneurysm, aortobililac stents, hypertension who comes in complaining of abdominal pain and diarrhea ongoing for 2 days and bright red rectal bleeding ongoing for 1 day. Patient has had 3 episodes of bright red bleeding per rectum. He admits to dizzines but no orthopnea or PND. His orthostatic vitals were positive in the ED. Patient's Hb is elevated at 15. Physical Exam: Gen: Comfortable, NG tube in situ, not pale, not jaundiced, obese CVS:HS I +II, regular, no murmurs RESP: Midline incisional scar, diminished at lung bases GI: Midline incisional scarBS present and normal, soft, nontender, no palpable organs EXT:No edema ASSESSMENT: 1. Acute GI bleed likely secondary to ischemic colitis 2. CAD s/p CABG, stents 3. PAD s/p aortobililiac stents 4. Infrarenal aortic aneurysm Plan: Admit to PCU, Type and screen Trend HH IV PPI BID GI consult Hold aspirin and Plavix Hold Lisinopril Continue on statin and metoprolol I discussed the various types of CODE status with patient. He chose to be full code and wants everything done to keep him alive. Time spent discussin mins Visit Charges Inpatient E&M: 39875 Init Hosp L3 Procedures Hospitalists Procedures: 72628 Advncd Care Plan 30 Min
--- NOTE | 2021-03-31 17:11 | NURSING ---
MED SURG COLITIS [facility]
--- NOTE | 2021-03-31 17:49 | EX.PCM.CON.G ---
HPI Consult Data Date of Consult: 03/31/21 HPI Narrative HPI Narrative: CHEY ROSADO, is a 65 M who presents to the ED with a past medical history of ischemic cardiomyopathy status post multiple AR ,status post PTCA with stent and an aortic aneurysm. Patient also has a history of poor vascular disease on aspirin and Plavix. He underwent an aortic aneurysm stent placement approximately 8 years ago. Subsequently since then he has had 8 more stents placed in his coronary arteries with his last one being in August 2017. He was at home last evening on 03/30/2021 when he developed acute onset of crampy abdominal pain. In order to make abdominal pain go away he tried to have a bowel movement. He had at least 8-10 watery bowel movements after that. He has not had any antibiotics within the last year. He denies any recent travel. He denies any sick contacts. His diarrhea then turned to bloody diarrhea. He denied any syncope or presyncopal events. When he came to the ED he was hypotensive and tachycardic. He did respond to IV fluids and pain medicine. His labs were consistent with a mild elevation in his AST and ALT at 50 and 60 with a normal bilirubin and normal alkaline phosphatase. His albumin is only 2.7. His BUN/creatinine ratio was mildly elevated at 25/1.3. His white blood cell count was also elevated at 15. His initial hemoglobin was 13.5. His baseline hemoglobin usually ranges in between 12.[address] A stat [address] scan of the abdomen pelvis was ordered and it did show edema without fat stranding at the level of the splenic flexure and descending colon possibly consistent with ischemic colitis. There also was in aortic stent that was seen transversing the bilateral iliofemoral region. There was no signs of clot in the stent and there was no clear communication between the stent and the small bowel. At this time his blood pressures ranging from 130s to 140s and his pulse has decreased down to 85. [facility] Medical History Arthritis Atherosclerotic heart disease of [place] coronary artery without angina pectoris CAD in [place] artery Cardiomyopathy Essential hypertension Heart disease History of pneumonia HTN (hypertension) Hyperlipidemia NSTEMI (non-ST elevated myocardial infarction) Old myocardial infarction PAD (peripheral artery disease) Presence of stent in coronary artery (~06/08/19) Home Medications clopidogrel 75 mg tablet 150 mg PO QDAY 07/24/17 [History Last Taken Unknown] aspirin 81 mg PO DAILY@0800 01/30/19 [History Last Taken Unknown] atorvastatin 80 mg tablet 80 mg PO QHS 02/16/19 [History Last Taken Unknown] metoprolol tartrate 25 mg tablet 25 mg PO BID #180 tab 02/25/19 [Rx Last Taken Unknown] lisinopril 5 mg tablet 5 mg PO DAILY 08/08/19 [History Last Taken Unknown] nitroglycerin 0.4 mg sublingual tablet 0.4 mg SUBLINGUAL Q5-15M PRN 08/08/19 [History Last Taken Unknown] methylprednisolone See Taper PO PRN PRN 03/31/21 [History Last Taken Unknown] Allergy/AdvReac Type Severity Reaction Status Date / Time Sulfa (Sulfonamide Allergy Unknown Verified 03/31/21 12:23 Antibiotics) Family History (Updated 03/31/21 @ 17:16 by Galo SPEARS) Father CAD (coronary artery disease) Mother Cancer CAD (coronary artery disease) Surgical History Abdominal aortic aneurysm without rupture History of imray-qumrq-nmxeepy bypass History of coronary artery bypass surgery (~2000) History of open heart surgery Presence of coronary angioplasty implant and graft (~06/08/19) S/P PTCA (percutaneous transluminal coronary angioplasty) Social History (Updated 03/31/21 @ 17:16 by Galo SPEARS) Smoking Status: Former smoker alcohol intake: current alcohol intake frequency: a few times a week Alcohol type: beer and hard liquor substance use type: does not use ROS Review of Systems ROS Unobtainable: other Constitutional Constitutional: Denies fatigue, fever(s), poor appetite, weight gain or weight loss ENT HEENT: Denies mouth lesions Cardiovascular Cardiovascular: Denies abdominal bloating, abdominal edema or abdominal pain Respiratory/Chest Respiratory/Chest: Denies change in mental status, change in phlegm color, chest congestion or chest tightness Gastrointestinal Gastrointestinal: Denies belching, bloating, change in bowel habits, change in stool character, chewing difficulty, coffee ground emesis, constipation, cramping, diarrhea, dyspepsia, dysphagia, early satiety, excessive flatus, fecal incontinence, heartburn, hematemesis, hematochezia, hemorrhoids, loose stools, melena, nausea, odynophagia, rectal bleeding, tenesmus, vomiting or weight changes Genitourinary Genitourinary: Denies abdominal discomfort, burning urination or itching Musculoskeletal Musculoskeletal: Reports as per HPI; Denies muscle weakness or myalgias Integumentary Integumentary: Denies jaundice Neurologic Neurologic: Denies lack of coordination or weakness Psychiatric Psychiatric: Denies confusion, depression, memory loss, mood swings, paranoia or suicidal ideation Endocrine Endocrinology: Denies systems reviewed and no addt'l complaints, except as documented Hematologic/Lymphatic Hematologic/Lymphatic: Denies anemia, easy bleeding, easy bruising or lymphadenopathy Allergic/Immunologic Allergic/Immunologic: Denies systems reviewed and no addt'l complaints, except as documented Lab / Micro Data Result Diagrams: 03/31/21 15:54 03/31/21 12:55 Labs: Laboratory Results - last 24 hr 03/31/21 12:55: WBC 15.8 H, RBC 4.72, Hgb 15.0, Hct 45.8, MCV 97.0 H, MCH 31.8, MCHC 32.8, RDW Std Deviation 50.6 H, RDW Coeff of [place] 14.1, Plt Count 359, MPV 9.5, Immature Gran % (Auto) 1.100 H, Neut % (Auto) 75.2 H, Lymph % (Auto) 15.8 L, [place] % (Auto) 5.0, Eos % (Auto) 2.4, Baso % (Auto) 0.5, Absolute Neuts (auto) 11.9 H, Absolute Lymphs (auto) 2.50, Nucleated RBC % 0 03/31/21 12:55: Sodium 137, Potassium 4.3, Chloride 107, Carbon Dioxide 23.0, Anion Gap 7, BUN 14, Creatinine 1.43 H, Estim Creat Clear Calc 53.18, Est GFR (MDRD) Af Amer 64, Est GFR (MDRD) Non-Af 53 L, BUN/Creatinine Ratio 9.8 L, Glucose 137 H, Calcium 8.7, Total Bilirubin 0.90, AST 12 L, ALT 14 L, Alkaline Phosphatase 167 H, Troponin I High Sens 14, Total Protein 7.0, Albumin 2.7 L, Globulin 4.3 H, Albumin/Globulin Ratio 0.6 L 03/31/21 12:55: Blood Type A NEGATIVE, Antibody Screen NEGATIVE 03/31/21 14:48: Lactic Acid 1.8 03/31/21 15:54: WBC 15.1 H, RBC 4.29 L, Hgb 13.8, Hct 41.9, MCV 97.7 H, MCH 32.2 H, MCHC 32.9, RDW Std Deviation 51.8 H, RDW Coeff of [place] 14.3, Plt Count 323, MPV 9.2, Immature Gran % (Auto) 0.900, Neut % (Auto) 72.8 H, Lymph % (Auto) 18.0 L, [place] % (Auto) 5.2, Eos % (Auto) 2.6, Baso % (Auto) 0.5, Absolute Neuts (auto) 11.0 H, Absolute Lymphs (auto) 2.72, Nucleated RBC % 0 Micro: Microbiology 03/31/21 12:55 Stool Stool Occult Blood (MADDI) - Final Occult Blood Positive Radiology Impression Abdomen/Pelvis CT 03/31/21 12:49 IMPRESSION: 1. Thickening of the wall the distal transverse and descending colon with minimal surrounding inflammation compatible with colitis. This may be due to an infectious or inflammatory process however ischemic colitis cannot be occluded. 2. Infrarenal abdominal aneurysm directly above an aortobiiliac stent correlation with old films available may be beneficial. Individualized dose optimization techniques were used for this CT. at 1427 Reported and signed by: Juan Miguel Gillespie MD Electronically Signed: Juan Miguel Gillespie MD at 14:26 EDT Tel , Service support , Assessment & Plan Assessment/Plan (1) Ischemic colitis: PLAN: Ischemic colitis is the leading differential diagnosis for lower GI bleeding in a vasculopath. Also different diagnosis would be an aortic enteric fistula. This is unlikely that this is an upper GI bleed with rapid transit however it is also possibility in the setting of aspirin and Plavix. The likely area of upper GI bleed would be in the duodenum. I suspect that his low albumin is an acute phase reactant however reviewing his chart he did have a significant hypoalbuminemia a year ago with an albumin of 2. His platelet count is okay and his INR is pending. I recommend that he get Mucomyst 800 mg twice daily, IV fluids, ESR, CRP, LDH, lactate, stool for enteric pathogens and stool lactoferrin. Also recommend check CBC to 8 hours and if his creatinine is okay he should get a CT angiography. I would hold his aspirin and Plavix just for 1 day. (2) LGI bleed: PLAN: Patient is not bleeding at this time and is clinically stable. I had a long conversation with him and his daughter and they were okay with the plan. Charges/Coding Visit Charges Inpatient E&M: 91191 Init Hosp L3
[2021-03-31 18:14] LABS: Hematocrit 41.6 % (40-54); Hemoglobin 13.5 g/dL (13.0-16.5)
[2021-03-31 18:36] LABS: Erythrocyte Sedimentation Rate 34 mm/hr (0-20)
[2021-03-31 19:00] LABS: LDH 293 U/L (87-241)
[2021-03-31] MEDS: Atorvastatin Calcium 80 MG Tablet PO (21:16)
[2021-03-31] MEDS: Metoprolol Tartrate 25 MG Tablet PO (21:16)
[2021-03-31] MEDS: Acetylcysteine (Mucomyst Oral) 20% SOLN 600 MG PO (21:21)
[2021-03-31] MEDS: 0.9% Normal Saline 1,000 ML 75 ML IV (22:13)
[2021-04-01] VITALS (12 sets, daily range): BP systolic 103–134; BP diastolic 50–62; PULSE 65–95; RESP 16–18; TEMP 36.7–37.2; O2SAT 92–95
[2021-04-01 00:52] LABS: Hematocrit 39.7 % (40-54); Hemoglobin 12.8 g/dL (13.0-16.5)
[2021-04-01 06:12] LABS: Absolute Lymphocyte Count 2.23 X10^3/uL (0.83-4.51); Absolute Neutrophil Count 10.8 X10^3/uL (2.0-7.7); Basophil# 0.08 X10^3/uL; Basophil% 0.6 % (0-1); Eosinophil# 0.43 X10^3/uL; Hematocrit 40.8 % (40-54); Lymphocyte # 2.23 X10^3/ul (0.83-4.51); Lymphocyte % 15.3 % (19-41); Mean Corp Hgb Conc 31.9 g/dL (32-36); Mean Corpuscular Hgb 31.9 pg (27.0-32.0); Mean Corpuscular Volume 100.2 fL (80-94); Mean Platelet Vol. 9.6 fl (6.2-12.0); Monocyte# 0.83 X10^3/uL; Monocyte% 5.7 % (0-10); NRBC Flagged by Analyzer 0 % (0-5); Neutrophil # 10.83 X10^3/uL (2.7-7.7); Neutrophil % 74.5 % (47-70); Platelet Count 326 K/mm3 (150-450); RBC Distribution Width CV 14.3 % (11.6-14.6); RBC Distribution Width SD 52.9 fl (35.1-43.9); Red Blood Count 4.07 M/mm3 (4.6-6.2); White Blood Count 14.5 K/mm3 (4.4-11.0)
[2021-04-01 06:43] LABS: ALB/GLOB Ratio 0.6 RATIO (0.9-2.4); AST(SGOT) 9 U/L (15-37); Alanine Aminotransfer ALT/SGPT 11 U/L (16-61); Albumin, Serum 2.3 g/dL (3.2-5.0); Alkaline Phosphatase 140 U/L (45-117); Anion Gap 4 (5-15); BUN 12 mg/dL (7-18); BUN/Creat Ratio 9.1 RATIO (10-20); Calcium,Total 8.2 mg/dL (8.5-10.1); Chloride 108 mmol/L (98-107); Creatinine, Serum 1.32 mg/dL (0.70-1.30); EST Glomerular Filtration Rate 58 mL/min (>60); Est Glom Filt Rate - Afr Amer 70 mL/min (>60); Estimated Creatinine Clearance 57.61 ml/min; Globulin 3.8 g/dL (2.2-4.2); Glucose 81 mg/dL (74-106); Potassium 4.3 mmol/L (3.5-5.1); Protein, Total 6.1 g/dL (6.4-8.2); Sodium Level 138 mmol/L (136-145)
[2021-04-01] MEDS: Metoprolol Tartrate 25 MG Tablet PO ×2 (09:34→22:27)
[2021-04-01] MEDS: Acetylcysteine (Mucomyst Oral) 20% SOLN 600 MG PO ×2 (09:43→22:28)
--- NOTE | 2021-04-01 11:00 | CASEMGMT ---
RN LIAM Face to Face with patient for initial transition planning/care coordination assessment. RN CM introduced self and role at [facility]. Patient lying in bed, alert and oriented, daughter at bedside. Patient willing to participate in assessment and is able to answer all questions appropriately. Care providers, pharmacy, and demographics verified. Patient wishes to discharge home, denies need for home health at this time. Patient states he has no further needs or concerns at this time. CM to follow for discharge planning needs that may arise. PCP: Jacklyn Specialists: Ronald Geronimo, pipe racker, [facility] Preferred Pharmacy: [facility] Insurance: [employer] [place] Prescription Benefit: yes Living Will/HPOA: none LNOK: daughter Living Arrangements: Patient lives in a 1st floor apartment with no steps to enter. Patient states he is independent. Transportation: self/daughter DME/HHC: Patient denies DME or previous HHC Disposition Plan: Patient to discharge home with family support and follow-up plans in place. Vivi KINSEY, RN, CM
--- NOTE | 2021-04-01 11:10 | PN.HOSP_ITS ---
Documented by User: Galo SPEARS 04/01/21 11:24 Subjective Subjective Patient is a 65-year-old male comfortably resting in bed, alert and orient x3. Patient denies any further bright red blood per rectum or abdominal pain. Patient denies development of any new symptoms overnight. Does not appear to be in acute distress. Objective Data Objective Data Vital Signs: Vital Signs Temp Pulse Resp BP Pulse Ox 98.6 F 78 16 113/54 L 95 04/01/21 09:31 04/01/21 09:34 04/01/21 09:31 04/01/21 09:31 04/01/21 09:31 Oxygen Delivery Method Room Air Weight: 195 lb 1.745 oz Body Mass Index (BMI) 28.0 Intake & Output: Intake and Output for Last 24 Hours 03/30/21 03/31/21 04/01/21 23:59 23:59 23:59 Intake Total 1610 / 1610 230 / 230 Balance 1610 / 1610 230 / 230 Lab / Micro Data Result Diagrams: 04/01/21 05:44 04/01/21 05:44 Labs: Laboratory Results - last 24 hr 03/31/21 12:55: WBC 15.8 H, RBC 4.72, Hgb 15.0, Hct 45.8, MCV 97.0 H, MCH 31.8, MCHC 32.8, RDW Std Deviation 50.6 H, RDW Coeff of [place] 14.1, Plt Count 359, MPV 9.5, Immature Gran % (Auto) 1.100 H, Neut % (Auto) 75.2 H, Lymph % (Auto) 15.8 L , [place] % (Auto) 5.0, Eos % (Auto) 2.4, Baso % (Auto) 0.5, Absolute Neuts (auto) 11.9 H, Absolute Lymphs (auto) 2.50, Nucleated RBC % 0 03/31/21 12:55: Sodium 137, Potassium 4.3, Chloride 107, Carbon Dioxide 23.0, Anion Gap 7, BUN 14, Creatinine 1.43 H, Estim Creat Clear Calc 53.18, Est GFR (MDRD) Af Amer 64, Est GFR (MDRD) Non-Af 53 L, BUN/Creatinine Ratio 9.8 L, Glucose 137 H, Calcium 8.7, Total Bilirubin 0.90, AST 12 L, ALT 14 L, Alkaline Phosphatase 167 H, Troponin I High Sens 14, Total Protein 7.0, Albumin 2.7 L, Globulin 4.3 H, Albumin/Globulin Ratio 0.6 L 03/31/21 12:55: Blood Type A NEGATIVE, Antibody Screen NEGATIVE 03/31/21 12:55: Lactate Dehydrogenase 293 H, C-React Prot Ext Range 32.90 H 03/31/21 14:48: Lactic Acid 1.8 03/31/21 15:54: WBC 15.1 H, RBC 4.29 L, Hgb 13.8, Hct 41.9, MCV 97.7 H, MCH 32.2 H, MCHC 32.9, RDW Std Deviation 51.8 H, RDW Coeff of [place] 14.3, Plt Count 323, MPV 9.2, Immature Gran % (Auto) 0.900, Neut % (Auto) 72.8 H, Lymph % (Auto) 18.0 L, [place] % (Auto) 5.2, Eos % (Auto) 2.6, Baso % (Auto) 0.5, Absolute Neuts (auto) 11.0 H, Absolute Lymphs (auto) 2.72, Nucleated RBC % 0 03/31/21 18:05: Hgb 13.5, Hct 41.6 03/31/21 18:05: ESR 34 H 04/01/21 00:43: Hgb 12.8 L, Hct 39.7 L 04/01/21 05:44: WBC 14.5 H, RBC 4.07 L, Hgb 13.0, Hct 40.8, MCV 100.2 H, MCH 31.9, MCHC 31.9 L, RDW Std Deviation 52.9 H, RDW Coeff of [place] 14.3, Plt Count 326, MPV 9.6, Immature Gran % (Auto) 0.900, Neut % (Auto) 74.5 H, Lymph % (Auto) 15.3 L, [place] % (Auto) 5.7, Eos % (Auto) 3.0, Baso % (Auto) 0.6, Absolute Neuts (auto) 10.8 H, Absolute Lymphs (auto) 2.23, Nucleated RBC % 0 04/01/21 05:44: Sodium 138, Potassium 4.3, Chloride 108 H, Carbon Dioxide 26.0, Anion Gap 4 L, BUN 12, Creatinine 1.32 H, Estim Creat Clear Calc 57.61, Est GFR (MDRD) Af Amer 70, Est GFR (MDRD) Non-Af 58 L, BUN/Creatinine Ratio 9.1 L, Glucose 81, Calcium 8.2 L, Total Bilirubin 1.00, AST 9 L, ALT 11 L, Alkaline Phosphatase 140 H, Total Protein 6.1 L, Albumin 2.3 L, Globulin 3.8, Albumin/Globulin Ratio 0.6 L Micro: Microbiology 03/31/21 12:55 Stool Stool Occult Blood (MADDI) - Final Occult Blood Positive Radiography Diagnostic Testing: Radiology Impression Abdomen/Pelvis CT 03/31/21 12:49 IMPRESSION: 1. Thickening of the wall the distal transverse and descending colon with minimal surrounding inflammation compatible with colitis. This may be due to an infectious or inflammatory process however ischemic colitis cannot be occluded. 2. Infrarenal abdominal aneurysm directly above an aortobiiliac stent correlation with old films available may be beneficial. Individualized dose optimization techniques were used for this CT. at 1427 Reported and signed by: Juan Miguel Gillespie MD Electronically Signed: Juan Miguel Gillespie MD at 14:26 EDT Tel , Service support , Physical Exam Const alert, oriented x3 and no apparent distress HEENT head/scalp atraumatic, moist oral mucous membranes and oropharynx normal Head and Scalp: normocephalic Eyes PERRL, EOMs intact bilaterally and conjunctivae normal Neck no lymphadenopathy, supple and no JVD Resp normal respiratory effort, no retractions and no use of accessory muscles Cardio regular rate, regular rhythm, no murmurs and no JVD GI normal to inspection, nondistended, normoactive bowel sounds, soft to palpation, non-tender and non-distended Extremity normal to inspection, full ROM and no clubbing, cyanosis or edema Peripheral Pulses: Yes pulses 2+ throughout Skin no rashes or lesions noted, no wounds, skin turgor normal and no jaundice Neuro CN's II-XII intact bilaterally Psych affect normal Assessment & Plan Assessment/Plan (1) LGI bleed: (2) Essential hypertension: (3) Cardiomyopathy: (4) Atherosclerotic heart disease of [place] coronary artery without angina pectoris: (5) Hyperlipidemia: (6) Ischemic colitis: PLAN: Day 1 Discharge planning: Current plan is for patient to return home. 1) lower GI bleed Vital signs since admission have been stable and do not show any evidence of hemodynamic compromise. White count is still elevated at 14.5, although has decreased since admission. Hemoglobin is still stable at 13. Stool guaiac was positive. CT of abdomen pelvis as above. GI following: ESR, CRP, LDH, lactate, enteric stool panel and stool lactoferrin pending, CTA ordered. Plan; remain on MS 3 for medical observation, hold aspirin and Plavix, trend H&H every 6 hours, CBC and BMP in a.m., IV Protonix ordered, Zofran as needed ordered, Mylanta as needed, Tylenol as needed. 2) leukocytosis Currently 14 5, down from admission. Possibly related to chronic steroid use for breakthrough pain. Medrol Dosepak on hold. Continue to trend CBC. 3) CAD status post stent Continue metoprolol and as needed nitroglycerin. Hold aspirin and Plavix. 4) hyperlipidemia Continue statin. 5) HTN Hold lisinopril, continue metoprolol. DVT prophylaxis - SCD's. Patient seen by Galo Anthony PA-C, under the supervision of Dr. Horvath. Documented by User: Dr. Natanael Horvath MD 04/01/21 15:13 Subjective Subjective Seen and examined. Patient still having bloody diarrhea bright red, small amount. Lower abdominal pain. No fever. Objective Data Lab / Micro Data Result Diagrams: 04/01/21 05:44 04/01/21 05:44 Physical Exam Narrative General: Alert, Oriented x3, Cooperative HEENT: Atraumatic, PERRLA, EOMI, Normocephalic Oral: No Gingival or Mucosal Lesions/ Ulcerations Neck: Supple, No JVD, Negative Carotid Bruits Lungs: Air entry diminished in bilateral lung bases. No crepitation/rhonchi Cardiovascular: Regular rate, Regular Rhythm, Normal S1, Normal S2, No murmurs Abdomen: Bowel sounds sluggish/absent. Soft, tenderness present over bilateral lower quadrants. Nondistended. : No renal angle tenderness. No suprapubic tenderness. Extremities: No edema, Capillary Refill Less than 3 Seconds Skin: No rashes, No breakdown Musculoskeletal: No Tenderness to Palpation of Joints or Extremities Neurological: Cranial nerves II-XII grossly intact, DTR 2+/4 and Symmetrical, Neuro grossly intact Psych/Mental Status: Flat affect. Assessment & Plan Assessment/Plan (1) LGI bleed: PLAN: This patient was seen in conjunction with REGAN Appiah. I have independently interviewed and examined the patient and reviewed pertinent history, examination findings, laboratory and plan of management. I have reviewed the note and agree with the documented findings with the few additional points. In brief, patient is admitted for lower GI bleed, bright red rectal bleed for 2 days. Patient still hemodynamically stable. Patient had CT abdomen last one CTA of chest abdomen and pelvis which showed mural thrombus of abdominal aorta, arc of aorta and descending thoracic aorta. Patient has history of extensive peripheral arterial disease, coronary artery disease, CABG and had multiple cardiac stents, 3.8 cm abdominal aortic aneurysm just proximal to endoluminal stent grafting. 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 There is plan for EGD and colonoscopy tomorrow. H&H is stable. Rest of comorbidities admission of I have discussed my assessment with REGAN Appiah and orders have been reviewed. Clinical Impression(s) from Imaging Studies Abdomen/Pelvis CT 03/31/21 12:49 IMPRESSION: 1. Thickening of the wall the distal transverse and descending colon with minimal surrounding inflammation compatible with colitis. This may be due to an infectious or inflammatory process however ischemic colitis cannot be occluded. 2. Infrarenal abdominal aneurysm directly above an aortobiiliac stent correlation with old films available may be beneficial. Individualized dose optimization techniques were used for this CT. Chest/Abdomen/Pelvis CTA 04/01/21 11:20 IMPRESSION: Stable appearance of the abdominal aorta. 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 Stable inflammatory changes seen in the descending colon. Charges/Coding Visit Charges Inpatient E&M: 24944 Subs Hosp L2
--- NOTE | 2021-04-01 11:20 | CT_ITS ---
STUDY: CTA CHEST AND CTA ABDOMEN/PELVIS WITH CONTRAST REASON FOR EXAM: Male, 65 years old. LGIB -- Assess aorta RADIATION DOSAGE (If Supplied By Facility): CTDIvol = ( 17.20 ) mGy, DLP = ( 1244.60 ) mGycm TECHNIQUE: The examination was performed with the intravenous administration of IV 100mL [id number]-370. Post-processing of the angiographic images was performed, with multiplanar reformation and 3D reconstruction. Individualized dose optimization techniques were used for this CT. COMPARISON: Comparison made with prior examination dated 03/31/2021. FINDINGS: CTA Chest Normal enhancement of the main pulmonary artery and right and left pulmonary arteries. Normal enhancement of the bilateral peripheral pulmonary arteries. There is no demonstrated pulmonary embolism. There is evidence of a mural thrombus at the level of the aortic arch. No evidence of aneurysmal dilatation. There is also evidence of mural thrombus along the wall of the descending thoracic aorta. There is no demonstrated aortic dissection. Sternal cerclage wires and vascular clips are present from a prior sternotomy and coronary artery bypass graft procedure (CABG). There are calcifications of the coronary arteries. Normal mediastinum. Normal hilar regions. Normal visualized trachea and bronchi. The lungs are well expanded. Stable mild degree of increased markings at the lung bases suggestive of scarring and/or atelectasis. Minimal degree of right pleural thickening. Normal chest wall structures. There are degenerative changes of thoracic spine. CT Abdomen T Pelvis Normal liver. Annual gallstones are seen in the region of the neck of the gallbladder. Normal spleen. Normal pancreas. Normal bilateral adrenal glands. Normal right kidney. Normal left kidney. Normal visualized stomach. Normal small intestine. There is evidence of circumferential wall thickening of the distal transverse colon and descending colon suggestive of colitis. This is unchanged. There are multiple colonic diverticula consistent with diverticulosis. The appendix is visualized and appears normal. Once again, there is evidence of a 3.8 cm aneurysm of the abdominal aorta just proximal to the endoluminal stent grafting. Mural thrombus is seen. Normal inferior vena cava. Normal retroperitoneum. Normal urinary bladder. There is enlargement of the prostate gland. Normal abdominal wall. There are degenerative changes of the visualized lumbar spine. CT/CTA Chst, Abd, Pel W and/or WO IMPRESSION: Stable appearance of the abdominal aorta. 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 Stable inflammatory changes seen in the descending colon. Electronically Signed: Zhou Dumont MD at 12:37 EDT , Service support ,
[2021-04-01] MEDS: 0.9% Normal Saline 1,000 ML 50 ML IV (11:58)
[2021-04-01] MEDS: 0.9% Saline Lock 10 ML Syringe IV (13:05)
[2021-04-01] MEDS: Morphine 4 MG/ML Syringe IV (13:05)
[2021-04-01] MEDS: Electrolyte Solution/Peg's 4000 ML 2000 ML PO (16:14)
[2021-04-01] MEDS: Magnesium Citrate 300 ML PO (17:48)
[2021-04-01] MEDS: Hyoscyamine Sulfate 0.125 MG Tablet SL ×2 (17:48→22:29)
--- NOTE | 2021-04-01 18:30 | PN.GI_ITS ---
Subjective Subjective Patient is still having a lot of crampy abdominal pain. He denies any nausea. He is only receiving Tylenol for pain. He is still having lower GI bleeding e rates his pain at 8 out of 10 when severe. He is still having some lower GI bleeding. Objective Data Objective Data Vital Signs: Vital Signs Temp Pulse Resp BP Pulse Ox 98.6 F 86 18 103/50 L 92 04/01/21 16:24 04/01/21 16:24 04/01/21 16:24 04/01/21 16:24 04/01/21 16:24 Oxygen Delivery Method Room Air Weight: 195 lb 1.745 oz Body Mass Index (BMI) 28.0 Intake & Output: Intake and Output for Last 24 Hours 03/30/21 03/31/21 04/01/21 23:59 23:59 23:59 Intake Total 1610 / 1610 1230 / 1230 Balance 1610 / 1610 1230 / 1230 Lab / Micro Data Result Diagrams: 04/01/21 05:44 04/01/21 05:44 Labs: Laboratory Results - last 24 hr 03/31/21 12:55: Lactate Dehydrogenase 293 H, C-React Prot Ext Range 32.90 H 03/31/21 18:05: ESR 34 H 04/01/21 00:43: Hgb 12.8 L, Hct 39.7 L 04/01/21 05:44: WBC 14.5 H, RBC 4.07 L, Hgb 13.0, Hct 40.8, MCV 100.2 H, MCH 31.9, MCHC 31.9 L, RDW Std Deviation 52.9 H, RDW Coeff of Sierra 14.3, Plt Count 326, MPV 9.6, Immature Gran % (Auto) 0.900, Neut % (Auto) 74.5 H, Lymph % (Auto) 15.3 L, [place] % (Auto) 5.7, Eos % (Auto) 3.0, Baso % (Auto) 0.6, Absolute Neuts (auto) 10.8 H, Absolute Lymphs (auto) 2.23, Nucleated RBC % 0 04/01/21 05:44: Sodium 138, Potassium 4.3, Chloride 108 H, Carbon Dioxide 26.0, Anion Gap 4 L, BUN 12, Creatinine 1.32 H, Estim Creat Clear Calc 57.61, Est GFR (MDRD) Af Amer 70, Est GFR (MDRD) Non-Af 58 L, BUN/Creatinine Ratio 9.1 L, Glucose 81, Calcium 8.2 L, Total Bilirubin 1.00, AST 9 L, ALT 11 L, Alkaline Phosphatase 140 H, Total Protein 6.1 L, Albumin 2.3 L, Globulin 3.8, Albumin/Globulin Ratio 0.6 L Micro: Microbiology 03/31/21 12:55 Stool Stool Occult Blood (MADDI) - Final Occult Blood Positive Radiography Diagnostic Testing: Radiology Impression Chest/Abdomen/Pelvis CTA 04/01/21 11:20 IMPRESSION: Stable appearance of the abdominal aorta. 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 Stable inflammatory changes seen in the descending colon. Electronically Signed: Zhou Dumont MD at 12:37 EDT , Service support , Physical Exam Const alert General Appearance: cooperative Orientation / Consciousness: oriented to person HEENT hearing grossly normal bilaterally Head and Scalp: normal to inspection Face and Sinus: face symmetric Nose: external nose normal Mouth: oral and palatal mucosa normal Eyes conjunctivae normal General Eye: normal appearance of both eyes Neck full ROM General: normal visual inspection Lymph Lymphatic: no lymphadenopathy noted Chest inspection of chest normal and palpation of chest normal Chest: symmetrical chest wall rise Resp normal respiratory effort Effort and Inspection: able to speak in complete sentences Cardio regular rate GI non-distended Percussion: normal to percussion Rectal Exam: deferred Neuro Speech: speech normal Gait (Neuro): normal gait Assessment & Plan Assessment/Plan (1) Ischemic colitis: PLAN: The working diagnosis is ischemic colitis from the findings on the CT scan. What I am concerned about is that as long mural thrombus that is extending up into the aortic arch. We should have cardiology evaluate this patient. If everything is okay we can perform endoscopy on him to see if he needs to get anticoagulated or shipped to a different facility. (2) LGI bleed: PLAN: Recheck a CBC and a CMP at 6:00. Charges/Coding Visit Charges Inpatient E&M: 61812 Subs Hosp L2
[2021-04-01 19:46] LABS: ALB/GLOB Ratio 0.6 RATIO (0.9-2.4); AST(SGOT) 13 U/L (15-37); Alanine Aminotransfer ALT/SGPT 11 U/L (16-61); Albumin, Serum 2.5 g/dL (3.2-5.0); Alkaline Phosphatase 155 U/L (45-117); Anion Gap 4 (5-15); BUN 12 mg/dL (7-18); BUN/Creat Ratio 8.2 RATIO (10-20); Calcium,Total 8.4 mg/dL (8.5-10.1); Chloride 108 mmol/L (98-107); Creatinine, Serum 1.46 mg/dL (0.70-1.30); EST Glomerular Filtration Rate 51 mL/min (>60); Est Glom Filt Rate - Afr Amer 62 mL/min (>60); Estimated Creatinine Clearance 52.08 ml/min; Glucose 88 mg/dL (74-106); Potassium 4.3 mmol/L (3.5-5.1); Protein, Total 6.5 g/dL (6.4-8.2); Sodium Level 137 mmol/L (136-145)
[2021-04-01] MEDS: Atorvastatin Calcium 80 MG Tablet PO (22:28)
[2021-04-02] VITALS (17 sets, daily range): BP systolic 108–135; BP diastolic 47–69; PULSE 71–94; RESP 16–20; TEMP 36.5–38.1; O2SAT 94–97; BMI 28.0
--- NOTE | 2021-04-02 | COLBX_PTH ---
PATIENT: CHEY ROSADO LOC: MS3 U#:[id number] AGE/SX: 65/M ROOM: MD313 RE03/31/[address]: Dr. Natanael Horvath MD : 1955 BED: 1 DIS: 04/03/2021 SPEC #: [id number] RECD: 04/02/21 18:33 STATUS: [place] #: [id number] RICHARD: 04/02/21 00:[address]: Markel Sarabia DEPT: SURGICAL PATHOLOGY RECD BY: Byron Winn ENTERED: 04/03/21 09:25 SP TYPE: COLON BX OTHR DR: MD Dr. Pj Unger MD Dr. Hannah Miedel, MD Dr. Prakash Chand, MD Dr. Paul Moodispaw, MD Tissues: A - SPLENIC FLEXURE B - Ascending colon C - Sigmoid colon biopsy Procedures: Surgery Specimen Level IV Comments: @ Ordering doctor for SUIV edited from to @ by KHURRAM at 04/03/21 1506 @ Submitting doctor edited from to @ by KHURRAM at 04/03/21 1506 HEADER OPERATION: Colonoscopy, EGD ([facility] [place]) PRE-OP DIAGNOSIS: Ischemic colitis, LGI bleed TISSUE SUBMITTED: A ? Splenic flexure polyp biopsy, B ? Ascending colon polyp biopsy, C ? Sigmoid colon biopsy MICROSCOPIC DIAGNOSIS A. Colonic polyp at splenic flexure, biopsy: Fragments of tubular adenoma. B. Ascending colon polyp, biopsy: Fragments of tubular adenoma. C. Sigmoid colon, biopsy: Mucosal ischemic change. Ulceration with fibrinopurulent material. AM:beckie 04/04/2021 MICROSCOPIC DESCRIPTION Slides are reviewed. GROSS DESCRIPTION A - Received in fixative is one container labeled with the patient's name and designated splenic flexure polyp biopsy. The specimen consists of two irregular fragments of light roque soft tissue that in aggregate measure 0.6 x 0.3 x 0.1 cm. The specimen is totally submitted in one cassette. B - Received in fixative is one container labeled with the patient's name and designated ascending colon polyp biopsy. The specimen consists of multiple irregular fragments of light roque soft tissue that in aggregate measure 1 x 0.2 x 0.1 cm. The specimen is totally submitted in one cassette. C - Received in fixative is one container labeled with the patient's name and designated sigmoid colon biopsy. The specimen consists of multiple irregular fragments of light roque soft tissue that in aggregate measure 0.5 x 0.5 x 0.1 cm. The specimen is totally submitted in one cassette. / MARISOL:beckie 04/03/21 TC:5 CPT: 04109 x3
[2021-04-02] MEDS: Hyoscyamine Sulfate 0.125 MG Tablet SL (05:26)
[2021-04-02] MEDS: 0.9% Normal Saline 1,000 ML 50 ML IV (05:33)
[2021-04-02] MEDS: Morphine 4 MG/ML Syringe IV (05:33)
[2021-04-02 07:26] LABS: Absolute Lymphocyte Count 1.93 X10^3/uL (0.83-4.51); Absolute Neutrophil Count 12.9 X10^3/uL (2.0-7.7); Basophil# 0.05 X10^3/uL; Basophil% 0.3 % (0-1); Eosinophil# 0.18 X10^3/uL; Eosinophils% 1.1 % (0-5); Hematocrit 36.8 % (40-54); Hemoglobin 11.7 g/dL (13.0-16.5); Lymphocyte # 1.93 X10^3/ul (0.83-4.51); Mean Corp Hgb Conc 31.8 g/dL (32-36); Mean Corpuscular Hgb 31.8 pg (27.0-32.0); Mean Platelet Vol. 9.8 fl (6.2-12.0); Monocyte# 0.94 X10^3/uL; Monocyte% 5.8 % (0-10); NRBC Flagged by Analyzer 0 % (0-5); Neutrophil % 80.1 % (47-70); Platelet Count 319 K/mm3 (150-450); RBC Distribution Width CV 14.5 % (11.6-14.6); RBC Distribution Width SD 52.7 fl (35.1-43.9); Red Blood Count 3.68 M/mm3 (4.6-6.2); White Blood Count 16.1 K/mm3 (4.4-11.0)
[2021-04-02 07:56] LABS: Anion Gap 6 (5-15); BUN 14 mg/dL (7-18); BUN/Creat Ratio 10.8 RATIO (10-20); Calcium,Total 8.1 mg/dL (8.5-10.1); Chloride 107 mmol/L (98-107); EST Glomerular Filtration Rate 59 mL/min (>60); Est Glom Filt Rate - Afr Amer 71 mL/min (>60); Estimated Creatinine Clearance 58.49 ml/min; Glucose 87 mg/dL (74-106); Sodium Level 139 mmol/L (136-145)
[2021-04-02] MEDS: Metoprolol Tartrate 25 MG Tablet PO ×2 (08:04→21:39)
--- NOTE | 2021-04-02 12:22 | PN.HOSP_ITS ---
Documented by User: Galo SPEARS 04/02/21 12:35 Subjective Subjective Patient is a 65-year-old male comfortably resting in bed, alert and orient x3. Patient denies any ongoing abdominal discomfort or bright red blood per rectum. Denies development of any new symptoms overnight. Does not appear in acute distress. Objective Data Objective Data Vital Signs: Vital Signs Temp Pulse Resp BP Pulse Ox 100.6 F H 92 18 108/59 L 97 04/02/21 07:58 04/02/21 08:04 04/02/21 07:58 04/02/21 07:58 04/02/21 07:58 Oxygen Delivery Method Room Air Weight: 195 lb 1.745 oz Body Mass Index (BMI) 28.0 Intake & Output: Intake and Output for Last 24 Hours 03/31/21 04/01/21 04/02/21 23:59 23:59 23:59 Intake Total 1610 / 1610 1340 / 1390 1172.50 / 1172.50 Balance 1610 / 1610 1340 / 1390 1172.50 / 1172.50 Lab / Micro Data Result Diagrams: 04/02/21 06:05 04/02/21 06:05 Labs: Laboratory Results - last 24 hr 04/01/21 18:10: Sodium 137, Potassium 4.3, Chloride 108 H, Carbon Dioxide 25.0, Anion Gap 4 L, BUN 12, Creatinine 1.46 H, Estim Creat Clear Calc 52.08, Est GFR (MDRD) Af Amer 62, Est GFR (MDRD) Non-Af 51 L, BUN/Creatinine Ratio 8.2 L, Glucose 88, Calcium 8.4 L, Total Bilirubin 1.30 H, AST 13 L, ALT 11 L, Alkaline Phosphatase 155 H, Total Protein 6.5, Albumin 2.5 L, Globulin 4.0, Albumin/Globulin Ratio 0.6 L 04/02/21 06:05: WBC 16.1 H, RBC 3.68 L, Hgb 11.7 L, Hct 36.8 L, MCV 100.0 H, MCH 31.8, MCHC 31.8 L, RDW Std Deviation 52.7 H, RDW Coeff of Sierra 14.5, Plt Count 319, MPV 9.8, Immature Gran % (Auto) 0.700, Neut % (Auto) 80.1 H, Lymph % (Auto) 12.0 L, [place] % (Auto) 5.8, Eos % (Auto) 1.1, Baso % (Auto) 0.3, Absolute Neuts (auto) 12.9 H, Absolute Lymphs (auto) 1.93, Nucleated RBC % 0 04/02/21 06:05: Sodium 139, Potassium 4.0, Chloride 107, Carbon Dioxide 26.0, Anion Gap 6, BUN 14, Creatinine 1.30, Estim Creat Clear Calc 58.49, Est GFR (MDRD) Af Amer 71, Est GFR (MDRD) Non-Af 59 L, BUN/Creatinine Ratio 10.8, Glucose 87, Calcium 8.1 L Micro: Microbiology 04/02/21 05:30 Stool Stool Lactoferrin - Final 04/02/21 05:30 Stool Enteric Bacteriology - Final 04/02/21 05:30 Stool C. difficile DNA Amplification - Final 03/31/21 12:55 Stool Stool Occult Blood (MADDI) - Final Occult Blood Positive Radiography Diagnostic Testing: Radiology Impression Chest/Abdomen/Pelvis CTA 04/01/21 11:20 IMPRESSION: Stable appearance of the abdominal aorta. 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 Stable inflammatory changes seen in the descending colon. Electronically Signed: Zhou Dumont MD at 12:37 EDT , Service support , Physical Exam Const alert, oriented x3 and no apparent distress HEENT head/scalp atraumatic and moist oral mucous membranes Head and Scalp: normocephalic Eyes PERRL, EOMs intact bilaterally and conjunctivae normal Neck no lymphadenopathy, supple and no JVD Resp normal respiratory effort, no retractions, no use of accessory muscles and clear to auscultation bilaterally Cardio regular rate, regular rhythm, no murmurs and no JVD GI soft to palpation and non-tender Inspection: abdominal distention Extremity normal to inspection, full ROM and no clubbing, cyanosis or edema Skin no rashes or lesions noted, no wounds, skin turgor normal and no jaundice Neuro CN's II-XII intact bilaterally Psych affect normal Assessment & Plan Assessment/Plan (1) Essential hypertension: (2) Cardiomyopathy: (3) Ischemic colitis: (4) LGI bleed: PLAN: Day 2 Discharge planning: Current plan is for patient to return home when medically ready. 1) lower GI bleed Vital signs since admission have been stable and do not show any evidence of hemodynamic compromise. Hemoglobin has dropped to 11.7, was 13 at admission.. Stool guaiac was positive. CT of abdomen pelvis as above. GI following: Plan is for colonoscopy on 04/02 plan; remain on MS 3 for medical observation, hold aspirin and Plavix, trend H&H every 6 hours, CBC and BMP in a.m., IV Protonix ordered, Zofran as needed ordered, Mylanta as needed, Tylenol as needed, continue fluids. 2) Ishemic colitis Seen on CT. Ova and parasites pending. C. difficile, enteric bacteriology and stool lactoferrin negative. Management as above, per GI. 3) leukocytosis Currently 16,000. Possibly related to chronic steroid use for breakthrough pain. Medrol Dosepak on hold. Continue to trend CBC. 4) CAD status post stent Continue metoprolol and as needed nitroglycerin. Hold aspirin and Plavix. 5) hyperlipidemia Continue statin. 6) HTN Hold lisinopril, continue metoprolol. DVT prophylaxis - SCD's. Patient seen by Galo Anthony PA-C, under the supervision of Dr. Horvath. Documented by User: Dr. Natanael Horvath MD 04/02/21 15:58 Subjective Subjective Patient did not had bloody diarrhea today since last night. H&H is stable although mild drop from 12.8-11.7. Plan for ECG and colonoscopy today. Objective Data Lab / Micro Data Result Diagrams: 04/02/21 06:05 04/02/21 06:05 Physical Exam Narrative General: Alert, Oriented x3, Cooperative HEENT: Atraumatic, PERRLA, EOMI, Normocephalic Oral: No Gingival or Mucosal Lesions/ Ulcerations Neck: Supple, No JVD, Negative Carotid Bruits Lungs: Air entry diminished in bilateral lung bases. No crepitation/rhonchi Cardiovascular: Regular rate, Regular Rhythm, Normal S1, Normal S2, No murmurs Abdomen: Bowel sounds sluggish. Soft, tenderness present over left lower quadrant. Nondistended. : No renal angle tenderness. No suprapubic tenderness. Extremities: No edema, Capillary Refill Less than 3 Seconds Skin: No rashes, No breakdown Musculoskeletal: No Tenderness to Palpation of Joints or Extremities Neurological: Cranial nerves II-XII grossly intact, DTR 2+/4 and Symmetrical, Neuro grossly intact Psych/Mental Status: Flat affect. Assessment & Plan Assessment/Plan (1) Ischemic colitis: (2) LGI bleed: PLAN: This patient was seen in conjunction with REGAN Appiah. I have independently interviewed and examined the patient and reviewed pertinent history, examination findings, laboratory and plan of management. I have reviewed the note and agree with the documented findings with the few additional points. In brief, patient is admitted for lower GI bleed, bright red rectal bleed for 2 days. Patient still hemodynamically stable. Patient had CT abdomen last one CTA of chest abdomen and pelvis which showed mural thrombus of abdominal aorta, arc of aorta and descending thoracic aorta. Patient has history of extensive peripheral arterial disease, coronary artery disease, CABG and had multiple cardiac stents, 3.8 cm abdominal aortic aneurysm just proximal to endoluminal stent grafting. 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 There is plan for EGD and colonoscopy today. H&H is stable. 04/02: I talked to the patient's daughter near the bedside. Her vascular surgeon Dr. Geronimo has retired. I explained her that there is multiple thrombus as described above. As per the nursing staff does not want to see Dr. Gabriel Kinsey. We will consult Dr. Mann. Rest of comorbidities as mentioned I have discussed my assessment with REGAN Appiah and orders have been reviewed. Charges/Coding Visit Charges Inpatient E&M: 09464 Subs Hosp L2
--- NOTE | 2021-04-02 13:38 | CASEMGMT ---
According to [facility]'s website, the following tertiary facilities are in network: [facility], [place], [facility], [facility], [facility], [facility], [place] and .
[2021-04-02] MEDS: Lactated Ringers 1,000 ML 100 ML IV (17:30)
--- NOTE | 2021-04-02 17:59 | OP.EGD_ITS ---
Patient Name: Esmer Walker Procedure Date: 04/02/2021 5:41 PM Date of : 1955 Age: 65 Procedure: Upper GI endoscopy Indications: Acute post hemorrhagic anemia Providers: Markel Sarabia DO Medicines: See the Anesthesia note for documentation of the administered medications Patient Profile: This is a 65 year old male. Refer to note in patient chart for documentation of history and physical. Patient has symptoms. The symptoms first began 01,. Complications: No immediate complications. Procedure: Pre-Anesthesia Assessment: - Prior to the procedure, a History and Physical was performed, and patient medications and allergies were reviewed. The patient is competent. The risks and benefits of the procedure and the sedation options and risks were discussed with the patient. All questions were answered and informed consent was obtained. Patient identification and proposed procedure were verified by the physician in the pre-procedure area. Airway Examination: normal oropharyngeal airway and neck mobility. Respiratory Examination: clear to auscultation. CV Examination: normal. Prophylactic Antibiotics: The patient does not require prophylactic antibiotics. Prior Anticoagulants: The patient has taken no previous anticoagulant or antiplatelet agents. ASA Grade Assessment: II - A patient with mild systemic disease. After reviewing the risks and benefits, the patient was deemed in satisfactory condition to undergo the procedure. The anesthesia plan was to use moderate sedation / analgesia (conscious sedation). Immediately prior to administration of medications, the patient was re-assessed for adequacy to receive sedatives. The heart rate, respiratory rate, oxygen saturations, blood pressure, adequacy of pulmonary ventilation, and response to care were monitored throughout the procedure. The physical status of the patient was re-assessed after the procedure. After obtaining informed consent, the endoscope was passed under direct vision. Throughout the procedure, the patient's blood pressure, pulse, and oxygen saturations were monitored continuously. The Endoscope was introduced through the mouth, and advanced to the third part of duodenum. The upper GI endoscopy was accomplished without difficulty. The patient tolerated the procedure well. Moderate Sedation: Moderate (conscious) sedation was administered by the endoscopy nurse and supervised by the endoscopist. The patient's oxygen saturation, heart rate, blood pressure and response to care were monitored. Total physician intraservice time was 15 minutes. Scope In: 5:49:09 PM Scope Out: 5:54:17 PM Total Procedure Duration Time 0 hours 5 minutes 8 seconds Findings: A moderate Schatzki ring was found in the lower third of the esophagus. Impression: - Moderate Schatzki ring. - No specimens collected. 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 - One spot with no bleeding in the duodenum. Tattooed. Recommendation: - Return patient to hospital proctor for ongoing care. - Resume previous diet. - Continue present medications. - Await pathology results. - Repeat upper endoscopy in 1 year for surveillance. - Return to GI office in 1 week. Procedure Code(s): --- Professional --- 14797, Esophagogastroduodenoscopy, flexible, transoral; diagnostic, including collection of specimen(s) by brushing or washing, when performed (separate procedure) G0500, Moderate sedation services provided by the same physician or other qualified health complex care nurse performing a gastrointestinal endoscopic service that sedation supports, requiring the presence of an independent trained observer to assist in the monitoring of the patient's level of consciousness and physiological status; initial 15 minutes of intra-service time; patient age 5 years or older (additional time may be reported with 18939, as appropriate) CPT copyright 2017 [employer]. All rights reserved. The codes documented in this report are preliminary and upon lime kiln worker helper review may be revised to meet current compliance requirements. Markel Sarabia DO 04/02/2021 5:59:35 PM This report has been signed electronically. Number of Addenda: 1 Note Initiated On: 04/02/2021 5:41 PM Addendum Number: 1 Addendum Date: 01/31/2022 6:07:26 AM MAC was used instead of moderate sedation for this patient. Markel Sarabia DO 01/31/2022 6:07:33 AM This report has been signed electronically.
--- NOTE | 2021-04-02 17:59 | OP.CCLET_ITS ---
01/31/2022 Annika Villasenor [place] [id number] [place] [address] Re : Upper GI endoscopy procedure for Esmer Walker Dear Dr. Villasenor This procedure was performed on Friday, April 02, 2021. My impressions and recommendations are as follows: Impressions : - Moderate Schatzki ring. - No specimens collected. 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 - One spot with no bleeding in the duodenum. Tattooed. Recommendations : - Return patient to hospital proctor for ongoing care. - Resume previous diet. - Continue present medications. - Await pathology results. - Repeat upper endoscopy in 1 year for surveillance. - Return to GI office in 1 week. My findings are described in the full procedure note, which is enclosed. If I can be of further assistance, please feel free to contact me at . Sincerely, Markel Friend, 04/02/2021 5:59:35 PM This report has been signed electronically.
--- NOTE | 2021-04-02 18:25 | OP.COLON_ITS ---
Patient Name: Esmer Walker Procedure Date: 04/02/2021 5:57 PM Date of : 1955 Age: 65 Procedure: Colonoscopy Indications: Acute post hemorrhagic anemia Providers: Markel Sarabia DO Medicines: See the Anesthesia note for documentation of the administered medications Patient Profile: This is a 65 year old male. Refer to note in patient chart for documentation of history and physical. Patient has symptoms. The symptoms first began ,. Last Colonoscopy: several years ago. Complications: No immediate complications. Procedure: Pre-Anesthesia Assessment: - Prior to the procedure, a History and Physical was performed, and patient medications and allergies were reviewed. The patient is competent. The risks and benefits of the procedure and the sedation options and risks were discussed with the patient. All questions were answered and informed consent was obtained. Patient identification and proposed procedure were verified by the physician in the pre-procedure area. Airway Examination: normal oropharyngeal airway and neck mobility. Respiratory Examination: clear to auscultation. CV Examination: normal. Prophylactic Antibiotics: The patient does not require prophylactic antibiotics. Prior Anticoagulants: The patient has taken no previous anticoagulant or antiplatelet agents. ASA Grade Assessment: II - A patient with mild systemic disease. After reviewing the risks and benefits, the patient was deemed in satisfactory condition to undergo the procedure. The anesthesia plan was to use moderate sedation / analgesia (conscious sedation). Immediately prior to administration of medications, the patient was re-assessed for adequacy to receive sedatives. The heart rate, respiratory rate, oxygen saturations, blood pressure, adequacy of pulmonary ventilation, and response to care were monitored throughout the procedure. The physical status of the patient was re-assessed after the procedure. After I obtained informed consent, the scope was passed under direct vision. Throughout the procedure, the patient's blood pressure, pulse, and oxygen saturations were monitored continuously. The adult colonoscope was introduced through the anus and advanced to the cecum, identified by appendiceal orifice and ileocecal valve. The colonoscopy was performed without difficulty. The patient tolerated the procedure well. The quality of the bowel preparation was fair. Moderate Sedation: Moderate (conscious) sedation was administered by the endoscopy nurse and supervised by the endoscopist. The patient's oxygen saturation, heart rate, blood pressure and response to care were monitored. Total physician intraservice time was 15 minutes. Scope In: 6:01:12 PM Scope Withdrawal Time 0 hours 9 minutes 37 seconds Scope Out: 6:18:53 PM Total Procedure Duration Time 0 hours 17 minutes 41 seconds Findings: The perianal and digital rectal examinations were normal. A continuous area of nonbleeding ulcerated mucosa with no stigmata of recent bleeding was present in the sigmoid colon. Biopsies were taken with a cold forceps for histology. Verification of patient identification for the specimen was done. Estimated blood loss was minimal. Three semi-pedunculated polyps were found in the transverse colon and ascending colon. The polyps were 1 to 2 mm in size. These polyps were removed with a hot snare. Resection and retrieval were complete. Verification of patient identification for the specimen was done. Estimated blood loss was minimal. Impression: - Ischemic colitis. Recommendation: - Repeat colonoscopy in 2 years for surveillance based on pathology results. - Return to GI office in 2 weeks. - Continue present medications. Procedure Code(s): --- Professional --- 94861, 59, Colonoscopy, flexible; with removal of tumor(s), polyp(s), or other lesion(s) by snare technique 85843, 59, Colonoscopy, flexible; with biopsy, single or multiple G0500, Moderate sedation services provided by the same physician or other qualified health care companion performing a gastrointestinal endoscopic service that sedation supports, requiring the presence of an independent trained observer to assist in the monitoring of the patient's level of consciousness and physiological status; initial 15 minutes of intra-service time; patient age 5 years or older (additional time may be reported with 69885, as appropriate) Diagnosis Code(s): --- Professional --- K55.9, Vascular disorder of intestine, unspecified D62, Acute posthemorrhagic anemia CPT copyright 2017 [employer]. All rights reserved. The codes documented in this report are preliminary and upon degreasing solution reclaimer review may be revised to meet current compliance requirements. Markel Sarabia DO 04/02/2021 6:25:22 PM This report has been signed electronically. Number of Addenda: 1 Note Initiated On: 04/02/2021 5:57 PM Addendum Number: 1 Addendum Date: 01/31/2022 6:07:45 AM MAC was used instead of moderate sedation for this patient. Markel Sarabia DO 01/31/2022 6:07:53 AM This report has been signed electronically.
--- NOTE | 2021-04-02 18:26 | OP.CCLET_ITS ---
01/31/2022 Annika Villasenor [facility] [address] [place] [address] Re : Colonoscopy procedure for Esmer Root Dear Dr. Villasenor This procedure was performed on Friday, April 02, 2021. My impressions and recommendations are as follows: Impressions : - Ischemic colitis. Recommendations : - Repeat colonoscopy in 2 years for surveillance based on pathology results. - Return to GI office in 2 weeks. - Continue present medications. My findings are described in the full procedure note, which is enclosed. If I can be of further assistance, please feel free to contact me at . Sincerely, Markel Sarabia, 04/02/2021 6:25:22 PM This report has been signed electronically.
--- NOTE | 2021-04-02 19:39 | NURSING ---
reviewed documentation by Norm Serrano, student RN
--- NOTE | 2021-04-02 21:36 | CON.PCM.CA_ITS ---
Assessment & Plan Assessment/Plan (1) Atherosclerotic heart disease of [place] coronary artery without angina pectoris: PLAN: The patient has an extensive cardiovascular history with respect to his CAD. He has undergone noninvasive and invasive evaluation in the past. He has undergone revascularization both percutaneously and surgically. At the present time he appears without any acute cardiovascular symptoms with respect to his CAD status. He should continue medical management as deemed appropriate. (2) Presence of stent in coronary artery: PLAN: The patient does have a history of PCI. Based upon the medical records available for review it appears as most recent procedure was performed at [facility] in June 2019. At the moment he will continue medical therapy. (3) History of coronary artery bypass surgery: PLAN: The patient has a history of CABG. He has undergone evaluation in the past as noted. Based upon his previous evaluation it appears that his grafts are occluded/nonfunctional. Thus he has continued medical therapy and PCI as noted. (4) Cardiomyopathy: PLAN: He has had a recent transthoracic echocardiogram. The results are as noted. Overall he has no obvious symptoms at this time of acute CHF or pulmonary edema. He will continue medical management. (5) Abdominal aortic aneurysm without rupture: PLAN: The patient has an extensive history of peripheral arterial occlusive disease including revascularization procedures. His recent CTA was noted. At the moment he is continuing risk factor modification and medical therapy. It would be reasonable to consider consultation for peripheral vascular surgery to comment on his medications with respect to any antiplatelet therapy or anticoagulant therapy especially in the setting him of his concerns of ischemic colitis and lower gastrointestinal bleeding process. (6) Hyperlipidemia: PLAN: He should continue risk factor evaluation care as deemed appropriate (7) Essential hypertension: PLAN: His blood pressure can be followed and treated accordingly. (8) Ischemic colitis: PLAN: He has been diagnosed with ischemic colitis. He will need continued valuation care per gastroenterology. Addt'l Comments At the present time, from a cardiovascular standpoint, the patient will continue conservative medical management. There are no plans for additional cardiovascular diagnostic studies/procedures at this time. Of note, if the patient were to require any invasive cardiovascular evaluation care, based upon his extensive cardiac and peripheral vascular history it would be recommended these procedures be performed at a major tertiary care center. It has been recommended that the patient be evaluated by peripheral vascular surgery for further comments on his abdominal aortic findings and recommendations with respect medical therapy especially in light of his ischemic colitis. The above has been discussed and reviewed with the patient. Thank you for allowing me to participate in the care of your patient. This note was generated using a voice recognition system and there may be incorrect words, spelling or punctuation that were not noted when reviewing the office note prior to saving. HPI Consult Data Date of Consult: 04/02/21 HPI Narrative HPI Narrative: CHEY ROSADO, is a 65 year old white male who presents for cardiov ascular consultation based upon concerns of an underlying extensive cardiac and peripheral vascular history for comment on abdominal aortic aneurysm/mural thrombus superimposed upon a history of underlying CAD, PCI, CABG, ischemic mediated cardiomyopathy, extensive peripheral arterial occlusive disease, hyperlipidemia, hypertension, now in the setting of acute gastrointestinal bleeding process potentially secondary to an underlying ischemic colitis (based upon colonoscopy report). The patient has undergone cardiovascular evaluation locally in the past- noninvasively. He has undergone invasive evaluation and care in the past through the [facility] system. He is also been followed for his extensive peripheral arterial occlusive disease through the [facility] system. At the present time he does not complain of any ongoing symptoms of classic angina pectoris and he has had no overt issues of obvious CHF or pulmonary edema. There has been no report of near syncope or syncope. He states his main concern was abdominal discomfort. He was noted to have gastrointestinal bleeding. He underwent EGD and colonoscopy. Per his colonoscopy report there were concerns of ischemic colitis. Also, during his hospitalization, he underwent an abdominal/pelvic CTA. He was reported as having the appearance of a stable abdominal aorta with a 3.8 cm aneurysm proximal to an endoluminal stent graft with associated mural thrombus. He states his peripheral vascular surgeon that cared for him in the past in the [place], [place] area has retired. [facility] Medical History Arthritis Atherosclerotic heart disease of [place] coronary artery without angina pectoris CAD in [place] artery Cardiomyopathy Essential hypertension Heart disease History of pneumonia HTN (hypertension) Hyperlipidemia NSTEMI (non-ST elevated myocardial infarction) Old myocardial infarction PAD (peripheral artery disease) Presence of stent in coronary artery (~06/08/19) Home Medications clopidogrel 75 mg tablet 150 mg PO QDAY 07/24/17 [History Last Taken Unknown] aspirin 81 mg PO DAILY@0800 01/30/19 [History Last Taken Unknown] atorvastatin 80 mg tablet 80 mg PO QHS 02/16/19 [History Last Taken Unknown] metoprolol tartrate 25 mg tablet 25 mg PO BID #180 tab 02/25/19 [Rx Last Taken Unknown] lisinopril 5 mg tablet 5 mg PO QHS 08/08/19 [History Last Taken Unknown] nitroglycerin 0.4 mg sublingual tablet 0.4 mg SUBLINGUAL Q5-15M PRN 08/08/19 [History Last Taken Unknown] pantoprazole 40 mg PO DAILY 03/31/21 [History Last Taken Unknown] Allergy/AdvReac Type Severity Reaction Status Date / Time Sulfa (Sulfonamide Allergy Unknown Verified 03/31/21 12:23 Antibiotics) Family History (Updated 03/31/21 @ 17:16 by Galo SPEARS) Father CAD (coronary artery disease) Mother Cancer CAD (coronary artery disease) Surgical History Abdominal aortic aneurysm without rupture History of xnorl-jcyri-apsbuin bypass History of coronary artery bypass surgery (~2000) History of open heart surgery Presence of coronary angioplasty implant and graft (~06/08/19) S/P PTCA (percutaneous transluminal coronary angioplasty) Social History (Updated 03/31/21 @ 17:16 by Galo SPEARS) Smoking Status: Former smoker alcohol intake: current alcohol intake frequency: a few times a week Alcohol type: beer and hard liquor substance use type: does not use ROS Constitutional Constitutional: Reports as per HPI Eyes Eyes: Reports as per HPI ENT HEENT: Reports as per HPI Cardiovascular Cardiovascular: Reports systems reviewed and no addt'l complaints, except as documented Respiratory/Chest Respiratory/Chest: Reports systems reviewed and no addt'l complaints, except as documented Gastrointestinal Gastrointestinal: Reports abdominal pain and hematochezia Genitourinary Genitourinary: Reports as per HPI Musculoskeletal Musculoskeletal: Reports as per HPI Integumentary Integumentary: Reports as per HPI Neurologic Neurologic: Reports as per HPI Physical Exam Const alert, oriented x3 and no apparent distress Orientation / Consciousness: awake HEENT normocephalic, head/scalp atraumatic and hearing grossly normal bilaterally Eyes PERRL, EOMs intact bilaterally and conjunctivae normal Neck full ROM, supple and no JVD Resp clear to auscultation bilaterally Cardio regular rate, regular rhythm, S1 normal heart sound and S2 normal heart sound GI GI Narrative: Positive bowel sounds: Positive tenderness to palpation Extremity no pedal edema Skin no rashes or lesions noted Neuro oriented x3, moves all extremities, no focal motor deficits and no sensory deficits noted Psych mental status grossly normal Risk Stratification Risk Stratification Applicable: No Procedure Criteria Type of Procedure Procedure Type: Elective Elective Risks - COVID COVID Risk Discussion: The surgeon/proceduralist and patient have discussed in detail the risk of exposure to and/or potential harm posed by the COVID-19 virus with having a surgery/procedure at this time versus the risk of delaying the s urgery/procedure. It is not possible to know either the risk of delaying the surgery or procedure or chance of getting an infection with perfect accuracy, but a joint decision was made between the patient and the surgeon/proceduralist to proceed at this time with the scheduled surgery/procedure as indicated on the consent form. Objective Data Vital Signs: Vital Signs Temp Pulse Resp BP Pulse Ox 98.1 F 77 16 122/56 H 96 04/02/21 19:10 04/02/21 19:10 04/02/21 19:10 04/02/21 19:10 04/02/21 19:10 Oxygen Delivery Method Room Air Weight: 195 lb 1.745 oz Body Mass Index (BMI) 28.0 Intake & Output: Intake and Output for Last 24 Hours 03/31/21 04/01/21 04/02/21 23:59 23:59 23:59 Intake Total 1610 / 1610 1340 / 1390 1172.50 / 1172.50 Balance 1610 / 1610 1340 / 1390 1172.50 / 1172.50 Lab / Micro Data Result Diagrams: 04/02/21 06:05 04/02/21 06:05 Labs: Laboratory Results - last 24 hr 04/02/21 06:05: WBC 16.1 H, RBC 3.68 L, Hgb 11.7 L, Hct 36.8 L, MCV 100.0 H, MCH 31.8, MCHC 31.8 L, RDW Std Deviation 52.7 H, RDW Coeff of [place] 14.5, Plt Count 319, MPV 9.8, Immature Gran % (Auto) 0.700, Neut % (Auto) 80.1 H, Lymph % (Auto) 12.0 L, [place] % (Auto) 5.8, Eos % (Auto) 1.1, Baso % (Auto) 0.3, Absolute Neuts (auto) 12.9 H, Absolute Lymphs (auto) 1.93, Nucleated RBC % 0 04/02/21 06:05: Sodium 139, Potassium 4.0, Chloride 107, Carbon Dioxide 26.0, Anion Gap 6, BUN 14, Creatinine 1.30, Estim Creat Clear Calc 58.49, Est GFR (MDRD) Af Amer 71, Est GFR (MDRD) Non-Af 59 L, BUN/Creatinine Ratio 10.8, Glucose 87, Calcium 8.1 L Micro: Microbiology 04/02/21 05:30 Stool Stool Lactoferrin - Final 04/02/21 05:30 Stool Enteric Bacteriology - Final 04/02/21 05:30 Stool C. difficile DNA Amplification - Final Cardiology Labs/Tests 04/02/21 06:05: WBC 16.1 H, RBC 3.68 L, Hgb 11.7 L, Hct 36.8 L, MCV 100.0 H, MCH 31.8, MCHC 31.8 L, Plt Count 319, MPV 9.8, Immature Gran % (Auto) 0.700, Neut % (Auto) 80.1 H, Lymph % (Auto) 12.0 L, [place] % (Auto) 5.8, Eos % (Auto) 1.1, Baso % (Auto) 0.3, Absolute Neuts (auto) 12.9 H, Nucleated RBC % 0 04/02/21 06:05: Sodium 139, Potassium 4.0, Chloride 107, Carbon Dioxide 26.0, Anion Gap 6, BUN 14, Creatinine 1.30, Est GFR (MDRD) Af Amer 71, Est GFR (MDRD) Non-Af 59 L, BUN/Creatinine Ratio 10.8, Glucose 87, Calcium 8.1 L ECHO: 03-18-2021 Interpretation Summary Normal LV size. Left ventricular systolic function is normal. The estimated ejection fraction is 55 %. Mild-Moderate (1-2+) eccentric mitral valve insufficiency. Diastolic function is indeterminate. Cardiac Cath: 02/18/2019: [facility] Left main coronary: Normal LAD: Occluded LCx: 95% in-stent restenosis RCA: Occluded SVG to the intermediate ramus: Occluded SVG to the right posterior lateral branch: Occluded Free ARCE is noted to originate from the SVG to the right posterior lateral branch Recommendation: Medical management PCI:06-08-2019: [facility] PCI to the LCx/OM 2-reported as successful CT Surgery:: 2011: [facility]: SVG to the intermediate ramus SVG to right posterior lateral graft Free ARCE to the LAD arising from the SVG to the right posterior lateral graft
[2021-04-02] MEDS: Atorvastatin Calcium 80 MG Tablet PO (21:39)
[2021-04-02] MEDS: Acetylcysteine (Mucomyst Oral) 20% SOLN 600 MG PO (21:42)
[2021-04-03] VITALS (7 sets, daily range): BP systolic 138–143; BP diastolic 54–67; PULSE 60–78; RESP 16; TEMP 36.7–37.1; O2SAT 95–97
[2021-04-03] MEDS: 0.9% Normal Saline 1,000 ML 50 ML IV (05:21)
[2021-04-03 06:50] LABS: Absolute Lymphocyte Count 2.05 X10^3/uL (0.83-4.51); Absolute Neutrophil Count 6.9 X10^3/uL (2.0-7.7); Basophil# 0.05 X10^3/uL; Basophil% 0.5 % (0-1); Eosinophil# 0.55 X10^3/uL; Eosinophils% 5.4 % (0-5); Hematocrit 33.4 % (40-54); Hemoglobin 10.8 g/dL (13.0-16.5); Lymphocyte # 2.05 X10^3/ul (0.83-4.51); Lymphocyte % 19.9 % (19-41); Mean Corp Hgb Conc 32.3 g/dL (32-36); Mean Corpuscular Hgb 32.3 pg (27.0-32.0); Mean Platelet Vol. 9.6 fl (6.2-12.0); Monocyte# 0.65 X10^3/uL; Monocyte% 6.3 % (0-10); NRBC Flagged by Analyzer 0 % (0-5); Neutrophil # 6.86 X10^3/uL (2.7-7.7); Neutrophil % 66.7 % (47-70); Platelet Count 308 K/mm3 (150-450); RBC Distribution Width CV 14.4 % (11.6-14.6); RBC Distribution Width SD 52.3 fl (35.1-43.9); Red Blood Count 3.34 M/mm3 (4.6-6.2); White Blood Count 10.3 K/mm3 (4.4-11.0)
[2021-04-03 07:18] LABS: Anion Gap 5 (5-15); BUN 13 mg/dL (7-18); BUN/Creat Ratio 10.4 RATIO (10-20); Chloride 109 mmol/L (98-107); Creatinine, Serum 1.25 mg/dL (0.70-1.30); EST Glomerular Filtration Rate 62 mL/min (>60); Est Glom Filt Rate - Afr Amer 74 mL/min (>60); Estimated Creatinine Clearance 60.83 ml/min; Glucose 78 mg/dL (74-106); Sodium Level 139 mmol/L (136-145)
[2021-04-03] MEDS: Metoprolol Tartrate 25 MG Tablet PO (08:50)
--- NOTE | 2021-04-03 10:46 | PCM.CONS.GEN ---
Assessment & Plan Assessment/Plan (1) PAD (peripheral artery disease): PLAN: 1. PAD. We will follow in 1 year with a repeat CT a abdomen pelvis with runoff. Nothing to change with the mural thrombus noted. Appears to have good flow through is a aortobiiliac bypass graft. Will need to follow the stents. May need further proximal stenting if the pseudoaneurysm increases at all. We will schedule follow-up in the office in 1 year HPI Consult Data Date of Consult: 04/03/21 HPI Narrative HPI Narrative: CHEY ROSADO, is a 65 M who presents some GI bleed. Parents have had some colitis. Had an upper and lower endoscopy. Did have CTA that showed his SMA to be widely patent. Previous aortic reconstruction noted. Stents within the limbs of the aorta bypass graft. Also appears to have a stent at the proximal anastomosis of this. Not exactly sure of his distal anastomosis. Does have some pseudoaneurysm of the proximal anastomosis but stable and able to follow with this point. [facility] Medical History Arthritis Atherosclerotic heart disease of [place] coronary artery without angina pectoris CAD in [place] artery Cardiomyopathy Essential hypertension Heart disease History of pneumonia HTN (hypertension) Hyperlipidemia NSTEMI (non-ST elevated myocardial infarction) Old myocardial infarction PAD (peripheral artery disease) Presence of stent in coronary artery (~06/08/19) Home Medications clopidogrel 75 mg tablet 150 mg PO QDAY 07/24/17 [History Last Taken Unknown] aspirin 81 mg PO DAILY@0800 01/30/19 [History Last Taken Unknown] atorvastatin 80 mg tablet 80 mg PO QHS 02/16/19 [History Last Taken Unknown] metoprolol tartrate 25 mg tablet 25 mg PO BID #180 tab 02/25/19 [Rx Last Taken Unknown] lisinopril 5 mg tablet 5 mg PO QHS 08/08/19 [History Last Taken Unknown] nitroglycerin 0.4 mg sublingual tablet 0.4 mg SUBLINGUAL Q5-15M PRN 08/08/19 [History Last Taken Unknown] pantoprazole 40 mg PO DAILY 03/31/21 [History Last Taken Unknown] Allergy/AdvReac Type Severity Reaction Status Date / Time Sulfa (Sulfonamide Allergy Unknown Verified 03/31/21 12:23 Antibiotics) Family History Father CAD (coronary artery disease) Mother Cancer CAD (coronary artery disease) Surgical History Abdominal aortic aneurysm without rupture History of gzscg-bijjd-preplgi bypass History of coronary artery bypass surgery (~2000) History of open heart surgery Presence of coronary angioplasty implant and graft (~06/08/19) S/P PTCA (percutaneous transluminal coronary angioplasty) Social History Smoking Status: Former smoker alcohol intake: current alcohol intake frequency: a few times a week Alcohol type: beer and hard liquor substance use type: does not use Physical Exam Narrative Patient awake alert oriented No apparent distress Afebrile vital signs stable HEENT: Normocephalic atraumatic Pupils equal reactive Moist mucous membrane Neck supple No bruit Chest nontender Heart appears regular Lungs clear Abdomen soft, slightly distended, minimally tender Palpable right radial pulse Faint pedal pulses Lab / Micro Data Result Diagrams: 04/03/21 06:10 04/03/21 06:10 Labs: Laboratory Results - last 24 hr 04/03/21 06:10: WBC 10.3, RBC 3.34 L, Hgb 10.8 L, Hct 33.4 L, MCV 100.0 H, MCH 32.3 H, MCHC 32.3, RDW Std Deviation 52.3 H, RDW Coeff of [place] 14.4, Plt Count 308, MPV 9.6, Immature Gran % (Auto) 1.200 H, Neut % (Auto) 66.7, Lymph % (Auto) 19.9, [place] % (Auto) 6.3, Eos % (Auto) 5.4 H, Baso % (Auto) 0.5, Absolute Neuts (auto) 6.9, Absolute Lymphs (auto) 2.05, Nucleated RBC % 0 04/03/21 06:10: Sodium 139, Potassium 4.0, Chloride 109 H, Carbon Dioxide 25.0, Anion Gap 5, BUN 13, Creatinine 1.25, Estim Creat Clear Calc 60.83, Est GFR (MDRD) Af Amer 74, Est GFR (MDRD) Non-Af 62, BUN/Creatinine Ratio 10.4, Glucose 78, Calcium 8.0 L Micro: Microbiology 04/02/21 05:30 Stool Stool Lactoferrin - Final 04/02/21 05:30 Stool Enteric Bacteriology - Final 04/02/21 05:30 Stool C. difficile DNA Amplification - Final
--- NOTE | 2021-04-03 10:57 | PCM.DC ---
Discharge Instructions Diet Discharge Diet: No restrictions Activity Discharge Activity: Return to Normal Activity Weight Bearing Status: Weight bearing as tolerated Dressing / Incision Call your doctor if you observe: Fever of 101 or Higher, Numbness or Tingling, Shortness of breath, Dizziness, Chest pain, Increased palpitations (irregular heartbeat) and Calf discomfort Follow Up Care Please Follow Up With: Primary care provider When: Within the next two weeks. Test Results: Test results from this visit will be discussed in further detail at your follow-up appointment, if applicable. Discharge Plan Admission Admit Date/Time: 03/31/21 16:44 Primary Reason for Your Visit: Ischemic colitis Attending Provider: Natanael Horvath Primary Care Provider: Annika Villasenor Consulting Providers: Juan mAor ; Pj Mann Discharge Orders/Prescriptions Prescriptions: Continued clopidogrel [Plavix] 75 mg tablet 150 mg PO QDAY RF: 0 atorvastatin 80 mg tablet 80 mg PO QHS RF: 0 nitroglycerin 0.4 mg tablet, sublingual 0.4 mg SUBLINGUAL Q5-15M PRN (Reason: Pain, Mild) RF: 0 lisinopril 5 mg tablet 5 mg PO QHS RF: 0 aspirin 81 MG tablet 81 mg PO DAILY@0800 RF: 0 pantoprazole 40 mg tablet,delayed release (DR/EC) 40 mg PO DAILY RF: 0 metoprolol tartrate 25 mg tablet 25 mg PO BID Qty: 180 RF: 3 Referrals / Follow Up: Pj Mann MD [STAFF PHYSICIAN] - See Referral Note (Follow up with Dr. Mann in [address] of abdomen for your aortic mural thrombus. ) Annika Villasenor MD [Primary Care Provider] - Within 2 Weeks Markel Sarabia DO [STAFF PHYSICIAN] - Within 1 Week Disposition Disposition (needs filled in before D/C Order can be placed): Home, Self Care
--- NOTE | 2021-04-03 13:52 | PCM.DC.SUM ---
Documented by User: Galo SPEARS 04/03/21 13:58 Providers Date of Admission: 03/31/21 Primary Care Physician: Dr. Annika Villasenor MD Consultations 03/31/21 17:24 Consult: Gastroenterology Routine Consulting Provider: [facility] Reason for Consult: LGIB EMERGENT Consult: No Notified: Yes Date Notified: 03/31/21 Time Notified: 17:24 Method of Notification: Verbal 04/02/21 08:45 Consult: Cardiology Routine Consulting Provider: Juan Amor Reason for Consult: Mural thrombus in the abdominal Aorta EMERGENT Consult: No Notified: Yes Date Notified: 04/02/21 Time Notified: 10:02 Method of Notification: Text Comments:: Consult requested per gastroenterologsitDr. Sarabia. 04/02/21 15:56 Consult: Vascular Surgery Routine Consulting Provider: Pj Mann Reason for Consult: multiple thrombus dark of aorta, descending thoracic aorta and AAA,s/p [place]urel EMERGENT Consult: No Notified: Yes Date Notified: 04/02/21 Time Notified: 16:58 Method of Notification: Answering Service Reason For Visit: ACUTE GI BLEED Diagnosis Discharge Diagnosis (1) PAD (peripheral artery disease): Status: Chronic Code(s): I73.9 - Peripheral vascular disease, unspecified Medications at Discharge Home Medications clopidogrel 75 mg tablet 150 mg PO QDAY 07/24/17 aspirin 81 mg PO DAILY@0800 01/30/19 atorvastatin 80 mg tablet 80 mg PO QHS 02/16/19 metoprolol tartrate 25 mg tablet 25 mg PO BID #180 tab 02/25/19 lisinopril 5 mg tablet 5 mg PO QHS 08/08/19 nitroglycerin 0.4 mg sublingual tablet 0.4 mg SUBLINGUAL Q5-15M PRN 08/08/19 pantoprazole 40 mg PO DAILY 03/31/21 Hospital Course Procedures Colonoscopy Summary of Care Provided Minutes Spent on Discharge: 35 Hospital Course: Disposition: Patient to discharge home. 1) lower GI bleed GI consulted and colonoscopy was performed which demonstrated ischemic colitis. Patient is to follow-up with Dr. Sarabia in the next few weeks and is to have repeat colonoscopy in 2 years for evidence of change. Vital signs since admission have been stable and do not show any evidence of hemodynamic compromise. Hemoglobin is stable, currently 10.8. Stool guaiac was positive. CT of abdomen pelvis as above. 2) Ishemic colitis Seen on CT. Ova and parasites pending. C. difficile, enteric bacteriology and stool lactoferrin negative. Management as above, per GI. 3) leukocytosis Resolved, currently 10,000. Likely due to long-term steroid use prior to admission. 4) CAD status post stent Continue aspirin and Plavix and metoprolol. 5) hyperlipidemia Continue statin. 6) HTN Continue home BP regimen. 7) aortic mural thrombus Evaluated by Dr. Mann, from vascular surgery, no further intervention or investigation indicated at this time. Patient is to follow-up with Dr. Mann in 1 year for a repeat CT-A of the abdomen. Patient seen by Galo Anthony PA-C, under the supervision of Dr. Horvath. Physical Exam Narrative Patient is a 65-year-old male comfortably resting in bed, alert and orient x3. Patient reports that his abdominal plane and bleeding from admission have resolved, denies development of any new symptoms overnight. Does not appear in acute distress. Const alert, oriented x3 and no apparent distress HEENT normocephalic, head/scalp atraumatic, hearing grossly normal bilaterally and moist oral mucous membranes Eyes PERRL, EOMs intact bilaterally and conjunctivae normal Neck no lymphadenopathy, supple and no JVD Resp normal respiratory effort, no retractions, no use of accessory muscles and clear to auscultation bilaterally Cardio regular rate, regular rhythm, no murmurs and no JVD GI normal to inspection, nondistended, normoactive bowel sounds, soft to palpation, non-tender and non-distended Extremity normal to inspection, full ROM and no clubbing, cyanosis or edema Skin no rashes or lesions noted, no wounds and skin turgor normal Neuro CN's II-XII intact bilaterally Psych affect normal Weight / BMI Weight Weight: 195 lb 1.745 oz Body Mass Index (BMI) 28.0 ABG / Lab / Microbiology Data Result Diagrams: 04/03/21 06:10 04/03/21 06:10 Laboratory: Laboratory Results - last 24 hr 04/03/21 06:10: WBC 10.3, RBC 3.34 L, Hgb 10.8 L, Hct 33.4 L, MCV 100.0 H, MCH 32.3 H, MCHC 32.3, RDW Std Deviation 52.3 H, RDW Coeff of [place] 14.4, Plt Count 308, MPV 9.6, Immature Gran % (Auto) 1.200 H, Neut % (Auto) 66.7, Lymph % (Auto) 19.9, Jenkins % (Auto) 6.3, Eos % (Auto) 5.4 H, Baso % (Auto) 0.5, Absolute Neuts (auto) 6.9, Absolute Lymphs (auto) 2.05, Nucleated RBC % 0 04/03/21 06:10: Sodium 139, Potassium 4.0, Chloride 109 H, Carbon Dioxide 25.0, Anion Gap 5, BUN 13, Creatinine 1.25, Estim Creat Clear Calc 60.83, Est GFR (MDRD) Af Amer 74, Est GFR (MDRD) Non-Af 62, BUN/Creatinine Ratio 10.4, Glucose 78, Calcium 8.0 L Microbiology: Microbiology 04/02/21 05:30 Stool Stool Lactoferrin - Final 04/02/21 05:30 Stool Enteric Bacteriology - Final 04/02/21 05:30 Stool C. difficile DNA Amplification - Final 03/31/21 12:55 Stool Stool Occult Blood (MADDI) - Final Occult Blood Positive D/C Instructions Discharge Diet: No restrictions Weight Bearing Status: Weight bearing as tolerated Call your doctor if you observe: Fever of 101 or Higher, Numbness or Tingling, Shortness of breath, Dizziness, Chest pain, Increased palpitations (irregular heartbeat) and Calf discomfort Please Follow Up With: Primary care provider When: Within the next two weeks. Meaningful Use Info Meaningful Use Diagnoses (Choose all that apply): None applicable Discharge Plan Admission Admit Date/Time: 03/31/21 16:44 Primary Reason for Your Visit: Ischemic colitis Attending Provider: Natanael Horvath Primary Care Provider: Annika Villasenor Consulting Providers: Juan Amor ; Pj Mann Discharge Orders/Prescriptions Prescriptions: Continued clopidogrel [Plavix] 75 mg tablet 150 mg PO QDAY RF: 0 atorvastatin 80 mg tablet 80 mg PO QHS RF: 0 nitroglycerin 0.4 mg tablet, sublingual 0.4 mg SUBLINGUAL Q5-15M PRN (Reason: Pain, Mild) RF: 0 lisinopril 5 mg tablet 5 mg PO QHS RF: 0 aspirin 81 MG tablet 81 mg PO DAILY@0800 RF: 0 pantoprazole 40 mg tablet,delayed release (DR/EC) 40 mg PO DAILY RF: 0 metoprolol tartrate 25 mg tablet 25 mg PO BID Qty: 180 RF: 3 Referrals / Follow Up: Pj Mann MD [STAFF PHYSICIAN] - See Referral Note (Follow up with Dr. Mann in [address] of abdomen for your aortic mural thrombus. ) Annika Villasenor MD [Primary Care Provider] - Within 2 Weeks (Appointment with Annika Villasenor on @ 11:10am.) FriendMarkel DO [STAFF PHYSICIAN] - Within 1 Week (Left message for Doctor Friend's office to contact the Patient at Patient's cell phone number.) Disposition Disposition (needs filled in before D/C Order can be placed): Home, Self Care Documented by User: Dr. Natanael Horvath MD 04/03/21 16:57 Providers Date of Admission: 03/31/21 Reason For Visit: ACUTE GI BLEED Medications at Discharge Home Medications clopidogrel 75 mg tablet 150 mg PO QDAY 07/24/17 aspirin 81 mg PO DAILY@0800 01/30/19 atorvastatin 80 mg tablet 80 mg PO QHS 02/16/19 metoprolol tartrate 25 mg tablet 25 mg PO BID #180 tab 02/25/19 lisinopril 5 mg tablet 5 mg PO QHS 08/08/19 nitroglycerin 0.4 mg sublingual tablet 0.4 mg SUBLINGUAL Q5-15M PRN 08/08/19 pantoprazole 40 mg PO DAILY 03/31/21 Hospital Course Summary of Care Provided Hospital Course: This patient was seen in conjunction with REGAN Appiah. I have independently interviewed and examined the patient and reviewed pertinent history, examination findings, laboratory and plan of management. I have reviewed the note and agree with the documented findings with the few additional points. In brief, patient is admitted for lower GI bleed, bright red rectal bleed for 2 days. Patient still hemodynamically stable. Patient had CT abdomen last one CTA of chest abdomen and pelvis which showed mural thrombus of abdominal aorta, arc of aorta and descending thoracic aorta. Patient has history of extensive peripheral arterial disease, coronary artery disease, CABG and had multiple cardiac stents, 3.8 cm abdominal aortic aneurysm just proximal to endoluminal stent grafting. 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 There is plan for EGD and colonoscopy today. H&H is stable. 04/02: I talked to the patient's daughter near the bedside. Her vascular surgeon Dr. Geronimo has retired. I explained her that there is multiple thrombus as described above. As per the nursing staff does not want to see Dr. Gabriel Kinsey. 04/03: Dr. Mann was consulted. He advised follow-up repeat CT abdomen pelvis with runoff in 1 year. [place] change was noticed with medial thrombus. As per him, there is good flow through aortobiiliac bypass graft. Patient was advised to follow with Dr. Mann. Rest of comorbidities as mentioned Discharge medication reconciliation done. Discharge follow-up instructions completed. Discharge process discussed with the patient and all questions were answered to patient's satisfaction. Total time spent, exact 35 minutes on discharge meds reconciliation, examination, coordination of care with nurses and ancillary staff, review of imaging and blood test and discussion with the patient on follow-up instructions I have discussed my assessment with REGAN Appiah and orders have been reviewed. Physical Exam Narrative Seen and examined. No GI bleed. Patient had EGD and colonoscopy yesterday. General: Alert, Oriented x3, Cooperative HEENT: Atraumatic, PERRLA, EOMI, Normocephalic Oral: No Gingival or Mucosal Lesions/ Ulcerations Neck: Supple, No JVD, Negative Carotid Bruits Lungs: Air entry diminished in bilateral lung bases. No crepitation/rhonchi Cardiovascular: Regular rate, Regular Rhythm, Normal S1, Normal S2, No murmurs Abdomen: Bowel sounds sluggish. Soft, tenderness present over left lower quadrant. Nondistended. : No renal angle tenderness. No suprapubic tenderness. Extremities: No edema, Capillary Refill Less than 3 Seconds Skin: No rashes, No breakdown Musculoskeletal: No Tenderness to Palpation of Joints or Extremities Neurological: Cranial nerves II-XII grossly intact, DTR 2+/4 and Symmetrical, Neuro grossly intact Psych/Mental Status: Flat affect. ABG / Lab / Microbiology Data Result Diagrams: 04/03/21 06:10 04/03/21 06:10 Discharge Plan Admission Admit Date/Time: 03/31/21 16:44 Primary Reason for Your Visit: Ischemic colitis Attending Provider: Natanael Horvath Primary Care Provider: Annika Villasenor Consulting Providers: Juan Amor ; Pj Mann Discharge Orders/Prescriptions Prescriptions: Continued clopidogrel [Plavix] 75 mg tablet 150 mg PO QDAY RF: 0 atorvastatin 80 mg tablet 80 mg PO QHS RF: 0 nitroglycerin 0.4 mg tablet, sublingual 0.4 mg SUBLINGUAL Q5-15M PRN (Reason: Pain, Mild) RF: 0 lisinopril 5 mg tablet 5 mg PO QHS RF: 0 aspirin 81 MG tablet 81 mg PO DAILY@0800 RF: 0 pantoprazole 40 mg tablet,delayed release (DR/EC) 40 mg PO DAILY RF: 0 metoprolol tartrate 25 mg tablet 25 mg PO BID Qty: 180 RF: 3 Referrals / Follow Up: Pj Mann MD [STAFF PHYSICIAN] - See Referral Note (Follow up with Dr. Mann in [address] of abdomen for your aortic mural thrombus. ) Annika Villasenor MD [Primary Care Provider] - Within 2 Weeks (Appointment with Annika Villasenor on @ 11:10am.) FriendMarkel DO [STAFF PHYSICIAN] - Within 1 Week (Left message for Doctor Friend's office to contact the Patient at Patient's cell phone number.) Disposition Disposition (needs filled in before D/C Order can be placed): Home, Self Care Charges/Coding Visit Charges Inpatient E&M: 61189 Disch Hosp
--- NOTE | 2021-04-04 12:51 | CASEMGMT ---
GERONIMO WHEELER Discharge Follow Up Phone Call: CHINTAN: Robby Strata:3 Call Date: 04/04/2021 Discharge Date: 04/03/21 Time of Call:1248 Duration:2 min Admitting Dx: Acute GI Bleed GERONIMO WHEELER completed follow up phone call after recent hospitalization. Pt states he is doing ok. He states he has made his fu appt with Dr. Sarabia for 04/09 at 1015 and he sees on 04/18. Pt denies any questions regarding his dc instructions or medications.
[2021-04-04 15:31] LABS: H. PYLORI STOOL AG Negative (Negative)
== END 2021-04-03 12:08 | disposition home or self-care (01) | DRG 395 ==
LOC: ED 17:17 → MS3 04-01 07:23
PROVIDERS: Internal Medicine Gastroenterology; Physician Assistant; Admitting Provider Internal Medicine; Emergency Provider Student in an Organized Health Care Education/Training Program; PCP Family Medicine; Visit Provider Internal Medicine
PROC: 0DJD8ZZ Inspection of Lower Intestinal Tract, Via Natural or Artificial Opening Endoscopic (ICD-10-PCS; CPT 45378; principal; 2021-04-02 16:25)
DX: K55.9 Vascular disorder of intestine, unspecified (principal); I51.3 Intracardiac thrombosis, not elsewhere classified; K55.1 Chronic vascular disorders of intestine; I71.4 Abdominal aortic aneurysm, without rupture; I73.9 Peripheral vascular disease, unspecified; K22.2 Esophageal obstruction; K63.5 Polyp of colon; I25.5 Ischemic cardiomyopathy; I95.1 Orthostatic hypotension; D72.829 Elevated white blood cell count, unspecified; I25.10 Atherosclerotic heart disease of native coronary artery without angina pectoris; I10 Essential (primary) hypertension; E78.5 Hyperlipidemia, unspecified; M19.90 Unspecified osteoarthritis, unspecified site; I25.2 Old myocardial infarction; T38.0X5A Adverse effect of glucocorticoids and synthetic analogues, initial encounter; Z79.02 Long term (current) use of antithrombotics/antiplatelets; Z79.82 Long term (current) use of aspirin; Z79.52 Long term (current) use of systemic steroids; Z79.899 Other long term (current) drug therapy; Z87.01 Personal history of pneumonia (recurrent); Z87.891 Personal history of nicotine dependence; Z95.1 Presence of aortocoronary bypass graft; Z95.5 Presence of coronary angioplasty implant and graft
CPT/HCPCS: 36415; 71275; 74174; 74177; 80048; 80053; 82274; 83605; 83615; 83630; 84484; 85014; 85018; 85025; 85652; 86140; 86850; 86900; 86901; 87177; 87209; 87493; 87506; 88305; 97802; 99251; 99284; 99406; J7030; J7040; J7120; Q9967; A4216; A4648; G0463; J2405

== ENCOUNTER 2021-12-31 00:30 | Emergency (ER) | payer MEDICARE, SELFPAY ==
[2019-08-08 14:05] VITALS: BMI 27.6
[2021-12-31 00:30] VITALS: BP 204/85; PULSE 67; RESP 16; TEMP 35.8; O2SAT 99; BMI 27.2
--- NOTE | 2021-12-31 00:44 | CT_ITS ---
EXAM: CT ABDOMEN AND PELVIS WITH INTRAVENOUS CONTRAST CLINICAL INDICATION: Upper abdominal pain TECHNIQUE: Helically acquired images were obtained of the abdomen and pelvis with intravenous contrast. This CT exam was performed using one or more of the following dose reduction techniques: automated exposure control, adjustment of the mA and/or kV according to patient size, and/or use of iterative reconstruction technique. This report was created using [employer] report generation technology. CONTRAST: 100 cc of Isovue-300 IV. RADIATION DOSE: CTDIvol = 16.14 mGy, DLP = 1172.62 mGy-cm. COMPARISON: 04/01/2021. FINDINGS: LOWER THORAX: Coronary artery calcifications. Interstitial disease with thickening of the interlobular septa in the lung bases similar to the prior exam. No cardiomegaly. No significant pericardial effusion. ABDOMEN: LIVER: Unremarkable. Homogeneous. No focal mass. GALLBLADDER AND BILE DUCTS: Cholelithiasis. No gallbladder distention or wall edema. No intra- or extrahepatic biliary ductal dilation. PANCREAS: Unremarkable. No focal cystic or solid mass. SPLEEN: Unremarkable. Normal size without focal cystic or solid mass. ADRENALS: Unremarkable. No nodules. KIDNEYS AND URETERS: Bilateral renal cortical atrophy unchanged. No hydronephrosis. STOMACH AND BOWEL: Numerous sigmoid diverticula without diverticulitis. No stomach or bowel distention. PELVIS: APPENDIX: Normal appendix. BLADDER: Unremarkable. REPRODUCTIVE: Unremarkable as visualized. No mass. ABDOMEN and PELVIS: INTRAPERITONEAL SPACE: Unremarkable. No ascites or other fluid collection. No free air. BONES/JOINTS: Unremarkable. No suspicious lytic or blastic abnormality. SOFT TISSUES: Unremarkable. No discrete abdominal or pelvic wall hernia. VASCULATURE: No change in the 3.8 cm aneurysm involving the distal abdominal aorta at the distal aspect of the stent. LYMPH NODES: Unremarkable. No enlarged lymph nodes. CT/Abdomen/Pelvis W IV Cont ONLY IMPRESSION: 1. No change in the 3.8 cm aneurysm involving the distal abdominal aorta at the distal aspect of the stent. No signs of hemorrhage. 2. Coronary artery disease. 3. Cholelithiasis. 4. Bilateral renal cortical atrophy unchanged. 5. Numerous sigmoid diverticula without diverticulitis. 6. Interstitial disease with thickening of the interlobular septa in the lung bases similar to the prior exam. 7. No acute abdominal pelvic abnormality. Electronically Signed: Fidel Sandy MD at 1:56 EDT ,
--- NOTE | 2021-12-31 00:46 | EKG12_ITS ---
Test Reason : DYSRHYTHMIA Blood Pressure : / mmHG Vent. Rate : 059 BPM Atrial Rate : 059 BPM P-R Int : 178 ms QRS Dur : 112 ms QT Int : 470 ms P-R-T Axes : 056 029 136 degrees QTc Int : 465 ms Sinus bradycardia Inferior infarct , age undetermined Abnormal ECG Confirmed by AMELIA STEELE, MODESTO ([id number]), slot editor FLORI SUTHERLAND ([id number]) on 12/31/2021 1:14:17 PM Referred By: GEOVANNA Confirmed By:MODESTO CISNEROS MD
--- NOTE | 2021-12-31 00:48 | EDS_ITS ---
HPI HPI - GI History of Present Illness Chief Complaint: Abd Pain Informant: patient and family Abdominal Pain/Flank Pain Onset: Today and Yesterday Context: Gradual Onset Timing: Continuous Quality: Aching and Cramping Location: Epigastric Current Severity: Moderate Maximum Severity: Moderate Worsened by: Nothing Relieved by: Nothing Nausea/Vomiting/Emesis GI Symptom: Positive for Nausea and Vomiting Onset: Today Severity: Mild Diarrhea/Melena/Hematochezia GI Symptom: Positive for Diarrhea; Negative for Melena or Hematochezia Onset: Today and Yesterday Stool Quality: Positive for Loose Severity: Mild Associated Symptoms Associated Symptoms: Negative for Dysuria, Frequency, Hematuria or Urgency Narrative Narrative: 66-year-old male extensive past medical history of CAD prior CABG, VT, cardiomyopathy with peripheral arterial disease and abdominal aortic aneurysm stent. He has seen GI in the past for abdominal pain without a specific cause. States that yesterday started having diarrhea and continued today developing abdominal cramping and pain primarily epigastric region. No radiation to his back. No chest pain. No fever or chills. No dysuria. He denies any melena. No fever. Tonight prior to coming the emergency department he did develop nausea and vomiting. Prior similar symptoms: Yes Recent Illness/Hospitalization: No PFSH PFSH Medical History Arthritis Atherosclerotic heart disease of [place] coronary artery without angina pectoris CAD in [place] artery Cardiomyopathy Essential hypertension Heart disease History of pneumonia HTN (hypertension) Hyperlipidemia Ischemic colitis NSTEMI (non-ST elevated myocardial infarction) Old myocardial infarction PAD (peripheral artery disease) Personal history of colonic polyps Presence of stent in coronary artery (~06/08/19) Home Medications clopidogrel 75 mg tablet (Plavix) 150 mg PO QDAY 07/24/17 [History Last Taken Unknown] aspirin 81 mg tablet,delayed release 81 mg PO DAILY@0800 01/30/19 [History Last Taken Unknown] atorvastatin 80 mg tablet 80 mg PO QHS 02/16/19 [History Last Taken Unknown] metoprolol tartrate 25 mg tablet 25 mg PO BID #180 tabs 02/25/19 [Rx Last Taken Unknown] lisinopril 5 mg tablet 5 mg PO QHS blood pressure 08/08/19 [History Last Taken Unknown] nitroglycerin 0.4 mg sublingual tablet 0.4 mg sublingual Q5-15M PRN Pain, Mild 08/08/19 [History Last Taken Unknown] pantoprazole 40 mg tablet,delayed release 40 mg PO DAILY GERD 03/31/21 [History Last Taken Unknown] Allergy/AdvReac Type Severity Reaction Status Date / Time Sulfa (Sulfonamide Allergy Unknown Verified 12/31/21 00:32 Antibiotics) Family History Father CAD (coronary artery disease) Mother Cancer CAD (coronary artery disease) Surgical History Abdominal aortic aneurysm without rupture History of [id number] bypass History of coronary artery bypass surgery (~2000) History of open heart surgery Presence of coronary angioplasty implant and graft (~06/08/19) S/P PTCA (percutaneous transluminal coronary angioplasty) Social History Smoking Status: Current some day smoker tobacco type: cigarettes alcohol intake: current alcohol intake frequency: a few times a week Alcohol type: beer and hard liquor substance use type: does not use ROS ROS ED ROS Narrative Nausea, vomiting, diarrhea and abdominal pain. Review of Systems ROS Unobtainable: Denies due to encephalopathy Constitutional Constitutional ED: Denies chills Eyes Eyes: Denies bloody eye ENT ENT ED: Denies bloody eye, change in voice, hoarseness or lip swelling Cardiovascular Cardiovascular: Reports abdominal pain Respiratory/Chest Respiratory/Chest: Denies dyspnea Gastrointestinal Gastrointestinal: Reports abdominal pain, cramping and diarrhea; Denies coffee ground emesis Genitourinary Genitourinary ED: Denies hematuria Musculoskeletal Musculoskeletal: Denies deformity Neurologic Neurologic: Denies dizziness Psychiatric Psychiatric: Denies anxiety Endocrine Endocrinology: Reports none Hematologic/Lymphatic Hematologic/Lymphatic: Reports none Allergic/Immunologic Allergic/Immunologic ED: Reports none EXAM Physical Exam Narrative Exam Narrative: 66-year-old male complaining of abdominal pain. Vital signs are stable. He is afebrile. H EENT exam unremarkable. Neck nontender. Lungs are clear. Heart regular rate and rhythm rate about 67 no murmur. Abdomen soft. Mildly distend ed. No peritoneal signs. Complaining of epigastric tenderness no specific right upper quadrant Kamilla's point tenderness. No hernia. No mass. No obvious obstruction. Moving all 4 extremities. Nontender. Neurologically is awake and alert. No focal motor deficits. Const Vital Signs: 12/31/21 00:30 Temperature 96.4 F L Temperature Source Temporal Pulse Rate 67 Respiratory Rate 16 Blood Pressure 204/85 H Blood Pressure Mean 124 Pulse Ox 99 Oxygen Delivery Method Room Air Positive well nourished, well developed, alert, oriented x3, no apparent distress, average body habitus and no limitations; Negative for cachectic, contractures or unkempt General Appearance ED: active, cooperative, comfortable, well kempt and well developed; Negative for unkempt, cachectic or contractures Nutritional Appearance: Negative for cachectic HEENT Reports normocephalic and head/scalp atraumatic Face and Sinus: normal facial exam Eyes PERRL, EOMs intact bilaterally, conjunctivae normal and no scleral icterus General Eye ED: Yes normal appearance of both eyes Neck full ROM, No nuchal rigidity, no lymphadenopathy, supple, no meningeal signs and no JVD General: normal visual inspection Lymph Lymphatic: no lymphadenopathy noted and no lymphedema noted; Negative for lymphedema or lymphadenopathy Chest Wall inspection of chest normal and palpation of chest normal Resp normal respiratory effort, normal air movement, no retractions, no use of accessory muscles and clear to auscultation bilaterally Cardio regular rate, regular rhythm, S1 normal heart sound, S2 normal heart sound, no murmurs, no rub, no gallops, no clicks and no JVD; Negative for diaphoretic Rate: regular rate Rhythm: regular rhythm Heart Sounds: S1 normal and S2 normal GI soft to palpation and no masses; Negative for normal to inspection, nondistended, normoactive bowel sounds, non-tender or non-distended Auscultation: normoactive bowel sounds Palpation: soft and tender; Negative for guarding, rigid, hernia, mass, pulsatile mass or ascites no CVA tenderness Back/Spine no CVA tenderness and normal ROM Extremity normal to inspection and no calf tenderness Neuro oriented x3, moves all extremities and no focal motor deficits Speech: speech normal Psych mental status grossly normal, thought process normal, cooperative, affect normal, speech normal and activity/motor behavior normal Appearance: grossly normal; Negative for unkempt Attitude: calm and engaged Skin no rashes or lesions noted, no wounds, no jaundice, no petechiae and no mottling MDM MDM MDM Narrative Medical decision making narrative: 66-year-old with abdominal pain. He will be treated with IV fluids, Zofran for nausea and morphine for pain. CAT scan labs are pending. Repeat exam at 2:10 AM patient is doing well. His pain is resolved. His nausea is resolved. He was treated with 2 doses of morphine and IV Zofran x1. Cur rently his abdomen is benign. I had a lengthy discussion with both he and I believe that his daughter at bedside regarding his labs and CAT scan results. We do not have any specific reason to admit him at this time. His CAT scan really showed no acute findings. We did discuss that he does have gallstones and could this have been related to biliary colic that is possible. Could also be secondary to mesenteric ischemia but really his labs do not bear that out nor does his CAT scan at this time. This could also be secondary to just a viral gastroenteritis since he has had recent nausea, vomiting and diarrhea. He will be discharged home to follow-up with his primary care physician. He knows to return if he is feeling worse. Lab Data Attestation: I reviewed the patient's lab results. Lab results narrative: CBC White count 9. H&H of 14 and 44. Chemistries unremarkable gap of 5 BUN of 16 creatinine 1.42. Liver enzymes unremarkable alk phos 178. Amylase normal at 37 lipase normal at 312. Lactic acid slightly elevated 2.3. Labs: Laboratory Results - last 24 hr 12/31/21 12/31/21 12/31/21 00:42 00:42 00:50 WBC 9.1 RBC 4.66 Hgb 14.1 Hct 44.6 MCV 95.7 H MCH 30.3 MCHC 31.6 L RDW Std Deviation 49.1 H RDW Coeff of [place] 13.9 Plt Count 350 MPV 9.4 Immature Gran % (Auto) 1.300 H Neut % (Auto) 55.4 Lymph % (Auto) 32.4 [place] % (Auto) 5.7 Eos % (Auto) 4.4 Baso % (Auto) 0.8 Absolute Neuts (auto) 5.1 Absolute Lymphs (auto) 2.95 Nucleated RBC % 0 Sodium 137 Potassium 3.7 Chloride 108 H Carbon Dioxide 24.0 Anion Gap 5 BUN 15 Creatinine 1.42 H Estim Creat Clear Calc 52.84 Est GFR (MDRD) Af Amer 64 Est GFR (MDRD) Non-Af 53 L BUN/Creatinine Ratio 10.6 Glucose 171 H Lactic Acid 2.3 H* Calcium 8.7 Total Bilirubin 0.60 AST 13 L ALT 14 L Alkaline Phosphatase 178 H Total Protein 7.4 Albumin 3.0 L Globulin 4.4 H Albumin/Globulin Ratio 0.7 L Amylase 37 Lipase 312 Radiography Diagnostic Testing: Clinical Impression(s) from Imaging Studies Abdomen/Pelvis CT 12/31/21 00:44 IMPRESSION: 1. No change in the 3.8 cm aneurysm involving the distal abdominal aorta at the distal aspect of the stent. No signs of hemorrhage. 2. Coronary artery disease. 3. Cholelithiasis. 4. Bilateral renal cortical atrophy unchanged. 5. Numerous sigmoid diverticula without diverticulitis. 6. Interstitial disease with thickening of the interlobular septa in the lung bases similar to the prior exam. 7. No acute abdominal pelvic abnormality. Electronically Signed: Fidel Sandy MD at 1:56 EDT , Rhythm Strip Rhythm Strip: Sinus Rhythm Rate: 59 EKG Initial EKG: Attestation: I personally reviewed and interpreted this EKG as follows: Interpretation: Sinus Rhythm and Sinus Bradycardia Comments: Sinus bradycardia rate of 59. No acute signs of VT or ischemia. Appears to have an old inferior VT. Discharge Plan Triage Chief Complaint: Abd Pain ED Provider: Eliezer aZragoza Dx/Rx/DC Orders Clinical Impression: Abdominal pain, History of abdominal aortic aneurysm (AAA), History of coronary artery disease, Hx of gallstones Instructions: ED Abdominal Pain Unkn Cause Male... Prescriptions: No Action clopidogrel [Plavix] 75 mg tablet 150 mg PO QDAY atorvastatin 80 mg tablet 80 mg PO QHS nitroglycerin 0.4 mg tablet, sublingual 0.4 mg SUBLINGUAL Q5-15M PRN (Reason: Pain, Mild) Rx Instructions: until response; do not exceed 3 doses per episode lisinopril 5 mg tablet 5 mg PO QHS aspirin 81 MG tablet 81 mg PO DAILY@0800 pantoprazole 40 mg tablet,delayed release (DR/EC) 40 mg PO DAILY metoprolol tartrate 25 mg tablet 25 mg PO BID Qty: 180 3RF Primary Care Provider: Annika Villasenor Referrals: Annika Villasenor MD [Primary Care Provider] - 1 Week Activity Restrictions/Additional Instructions: Your exam and CAT scans do not show any acute cause for your pain. This may be secondary to gallstones which you do have on the CAT scan and had in the past. It could be secondary to decreased blood flow to your intestines but that did not show up on the CAT scan at this time. It could also be from a virus. Plenty of fluids and rest. Follow-up with your doctor to ensure you are improving. Disposition Disposition: Home, Self Care
[2021-12-31] MEDS: Morphine 4 MG/ML Syringe 6 MG IV (00:51)
[2021-12-31] MEDS: 0.9% Normal Saline 1,000 ML 1000 ML IV (00:51)
[2021-12-31] MEDS: Ondansetron 4 MG/2 ML Vial IV (00:51)
[2021-12-31 00:59] LABS: Absolute Lymphocyte Count 2.95 X10^3/uL (0.83-4.51); Absolute Neutrophil Count 5.1 X10^3/uL (2.0-7.7); Basophil# 0.07 X10^3/uL; Basophil% 0.8 % (0-1); Eosinophils% 4.4 % (0-5); Hematocrit 44.6 % (40-54); Hemoglobin 14.1 g/dL (13.0-16.5); Lymphocyte # 2.95 X10^3/ul (0.83-4.51); Lymphocyte % 32.4 % (19-41); Mean Corp Hgb Conc 31.6 g/dL (32-36); Mean Corpuscular Hgb 30.3 pg (27.0-32.0); Mean Corpuscular Volume 95.7 fL (80-94); Mean Platelet Vol. 9.4 fl (6.2-12.0); Monocyte# 0.52 X10^3/uL; Monocyte% 5.7 % (0-10); NRBC Flagged by Analyzer 0 % (0-5); Neutrophil # 5.05 X10^3/uL (2.7-7.7); Neutrophil % 55.4 % (47-70); Platelet Count 350 K/mm3 (150-450); RBC Distribution Width CV 13.9 % (11.6-14.6); RBC Distribution Width SD 49.1 fl (35.1-43.9); Red Blood Count 4.66 M/mm3 (4.6-6.2); White Blood Count 9.1 K/mm3 (4.4-11.0)
[2021-12-31 01:17] LABS: ALB/GLOB Ratio 0.7 RATIO (0.9-2.4); AST(SGOT) 13 U/L (15-37); Alanine Aminotransfer ALT/SGPT 14 U/L (16-61); Alkaline Phosphatase 178 U/L (45-117); Amylase 37 U/L (25-115); Anion Gap 5 (5-15); BUN 15 mg/dL (7-18); BUN/Creat Ratio 10.6 RATIO (10-20); Calcium,Total 8.7 mg/dL (8.5-10.1); Chloride 108 mmol/L (98-107); Creatinine, Serum 1.42 mg/dL (0.70-1.30); EST Glomerular Filtration Rate 53 mL/min (>60); Est Glom Filt Rate - Afr Amer 64 mL/min (>60); Estimated Creatinine Clearance 52.84 ml/min; Globulin 4.4 g/dL (2.2-4.2); Glucose 171 mg/dL (74-106); Lipase 312 U/L (73-393); Potassium 3.7 mmol/L (3.5-5.1); Protein, Total 7.4 g/dL (6.4-8.2); Sodium Level 137 mmol/L (136-145)
[2021-12-31] MEDS: morphine 8 MG/ML Syringe 6 MG IV (01:22)
[2021-12-31 01:25] LABS: Lactic Acid 2.3 mmol/L (0.4-1.9)
[2021-12-31 02:37] VITALS: BP 179/71; PULSE 66; RESP 15; O2SAT 92
[2021-12-31 04:56] LABS: Reflex Lactate? Y
== END 2021-12-31 02:38 | disposition home or self-care (01) ==
PROVIDERS: Emergency Provider Emergency Medicine; PCP Family Medicine; Visit Provider Emergency Medicine
DX: R10.13 Epigastric pain (principal); I42.9 Cardiomyopathy, unspecified; I25.10 Atherosclerotic heart disease of native coronary artery without angina pectoris; E78.5 Hyperlipidemia, unspecified; I10 Essential (primary) hypertension; R11.2 Nausea with vomiting, unspecified; R19.7 Diarrhea, unspecified; F17.210 Nicotine dependence, cigarettes, uncomplicated; Z79.02 Long term (current) use of antithrombotics/antiplatelets; Z79.82 Long term (current) use of aspirin; Z79.899 Other long term (current) drug therapy; I25.2 Old myocardial infarction; Z95.1 Presence of aortocoronary bypass graft; Z95.5 Presence of coronary angioplasty implant and graft
CPT/HCPCS: 74177; 80053; 82150; 83605; 83690; 85025; 93005; 96361; 96374; 96375; 96376; 99283; J7030; Q9967; A4216; J2405

== ENCOUNTER 2022-01-17 20:12 | Emergency (ER) | payer MEDICARE, SELFPAY ==
[2019-08-08 14:05] VITALS: BMI 27.6
[2022-01-17 20:13] VITALS: BP 138/60; PULSE 67; RESP 15; TEMP 36.5; O2SAT 96; BMI 27.2
[2022-01-17 21:49] LABS: Absolute Lymphocyte Count 2.87 X10^3/uL (0.83-4.51); Absolute Neutrophil Count 5.9 X10^3/uL (2.0-7.7); Basophil# 0.09 X10^3/uL; Basophil% 0.9 % (0-1); Eosinophil# 0.43 X10^3/uL; Eosinophils% 4.2 % (0-5); Hematocrit 42.5 % (40-54); Lymphocyte # 2.87 X10^3/ul (0.83-4.51); Lymphocyte % 28.3 % (19-41); Mean Corp Hgb Conc 32.9 g/dL (32-36); Mean Corpuscular Hgb 31.3 pg (27.0-32.0); Mean Corpuscular Volume 95.1 fL (80-94); Mean Platelet Vol. 9.1 fl (6.2-12.0); Monocyte% 6.9 % (0-10); NRBC Flagged by Analyzer 0 % (0-5); Neutrophil # 5.92 X10^3/uL (2.7-7.7); Neutrophil % 58.5 % (47-70); Platelet Count 296 K/mm3 (150-450); RBC Distribution Width CV 13.9 % (11.6-14.6); RBC Distribution Width SD 48.8 fl (35.1-43.9); Red Blood Count 4.47 M/mm3 (4.6-6.2); White Blood Count 10.1 K/mm3 (4.4-11.0)
[2022-01-17 22:06] LABS: Anion Gap 5 (5-15); BUN 17 mg/dL (7-18); Calcium,Total 8.9 mg/dL (8.5-10.1); Chloride 110 mmol/L (98-107); Creatinine, Serum 1.31 mg/dL (0.70-1.30); EST Glomerular Filtration Rate 58 mL/min (>60); Est Glom Filt Rate - Afr Amer 70 mL/min (>60); Estimated Creatinine Clearance 57.27 ml/min; Glucose 128 mg/dL (74-106); Potassium 4.7 mmol/L (3.5-5.1); Sodium Level 137 mmol/L (136-145)
[2022-01-17] MEDS: morphine 8 MG/ML Syringe 6 MG IV (23:09)
[2022-01-17] MEDS: 0.9% Normal Saline 1,000 ML 999 ML IV (23:09)
[2022-01-17 23:37] LABS: AST(SGOT) 14 U/L (15-37); Alanine Aminotransfer ALT/SGPT 18 U/L (16-61); Albumin, Serum 2.9 g/dL (3.2-5.0); Alkaline Phosphatase 167 U/L (45-117); Bilirubin, Direct 0.15 mg/dL (0.00-0.30); Globulin 4.1 g/dL (2.2-4.2); Troponin-I HS 15 pg/mL (3.0-78.0)
[2022-01-17 23:43] LABS: Lactic Acid 1.7 mmol/L (0.4-1.9)
[2022-01-17 23:58] VITALS: BP 157/61
[2022-01-18 00:04] LABS: Bacteria 0 SEEN /hpf (None Seen); Color, Urine Yellow (Yellow); Glucose, Dipstick Normal (Normal); Ketone-Dipstick Negative (Negative); Leukocyte Esterase-Dipstick Negative /ul (Negative); Mucous, Urine 0 SEEN /hpf (<or=2+); Nitrite-Dipstick Negative (Negative); Occult Blood-Urine Negative /ul (Negative); Protein-Dipstick Negative (Negative); Red Blood Cells-Urine 0 SEEN /hpf (0-5); Squamous Epithelial Cells - UA 0 SEEN /hpf (0-5); Urine Bilirubin Dipstick Negative (Negative); Urine Clarity Clear (Clear); Urine Urobilinogen Normal (Normal); White Blood Cells 0 SEEN /hpf (0-5)
[2022-01-18 00:54] VITALS: BP 148/67; PULSE 53; RESP 15; O2SAT 98
--- NOTE | 2022-01-18 01:05 | EDS_ITS ---
HPI HPI - GI History of Present Illness Chief Complaint: Abd Pain Informant: patient Narrative Narrative: Patient is a 66-year-old male presenting with abdominal pain. Patient was seen 2 to 3 weeks ago in our ER with similar pain. At that time he was told he had gallstones the exact cause was not clear. He was discharged home. He has appointment to follow-up with his primary care doctor in 3days to get a referral for surgical follow-up. Patient states that he had fried fish sandwich for lunch and around 6 or 7 PM started having abdominal pain. Is periumbilical. Denies associated nausea or vomiting. Did not take anything for pain prior to arrival. Denies any changes bowel movements. No report of any black or blood in his stool. Had an episode of similar abdominal pain about a year ago but the cause is not clear. Patient does have a history of acid reflux. No other complaints at this time. [facility] Medical History Arthritis Atherosclerotic heart disease of [place] coronary artery without angina pectoris CAD in [place] artery Cardiomyopathy Essential hypertension Heart disease History of pneumonia HTN (hypertension) Hyperlipidemia Ischemic colitis NSTEMI (non-ST elevated myocardial infarction) Old myocardial infarction PAD (peripheral artery disease) Personal history of colonic polyps Presence of stent in coronary artery (~06/08/19) Home Medications clopidogrel 75 mg tablet (Plavix) 150 mg PO QDAY 07/24/17 [History Last Taken Unknown] aspirin 81 mg tablet,delayed release 81 mg PO DAILY@0800 01/30/19 [History Last Taken Unknown] atorvastatin 80 mg tablet 80 mg PO QHS 02/16/19 [History Last Taken Unknown] metoprolol tartrate 25 mg tablet 25 mg PO BID #180 tabs 02/25/19 [Rx Last Taken Unknown] lisinopril 5 mg tablet 5 mg PO QHS blood pressure 08/08/19 [History Last Taken Unknown] nitroglycerin 0.4 mg sublingual tablet 0.4 mg sublingual Q5-15M PRN Pain, Mild 08/08/19 [History Last Taken Unknown] pantoprazole 40 mg tablet,delayed release 40 mg PO DAILY GERD 03/31/21 [History Last Taken Unknown] hydrocodone-acetaminophen 5-325mg 5mg-325mg 1 tab PO Q8H PRN pain 3 days #9 tabs 01/18/22 [Rx Last Taken Unknown] ondansetron 4 mg disintegrating tablet 4 mg PO Q8H PRN nausea and vomiting #10 tabs 01/18/22 [Rx Last Taken Unknown] Allergy/AdvReac Type Severity Reaction Status Date / Time Sulfa (Sulfonamide Allergy Unknown Verified 01/17/22 20:16 Antibiotics) Family History Father CAD (coronary artery disease) Mother Cancer CAD (coronary artery disease) Surgical History Abdominal aortic aneurysm without rupture History of yblzh-jjysu-[id number] bypass History of coronary artery bypass surgery (~2000) History of open heart surgery Presence of coronary angioplasty implant and graft (~06/08/19) S/P PTCA (percutaneous transluminal coronary angioplasty) Social History Smoking Status: Current some day smoker tobacco type: cigarettes alcohol intake: current alcohol intake frequency: a few times a week Alcohol type: beer and hard liquor substance use type: does not use ROS ROS ED Constitutional Constitutional ED: Denies chills or fever(s) ENT ENT ED: Denies rhinorrhea or sore throat Cardiovascular Cardiovascular: Denies chest pain Respiratory/Chest Respiratory/Chest: Denies cough or dyspnea Gastrointestinal Gastrointestinal: Reports abdominal pain; Denies diarrhea, nausea or vomiting Genitourinary Genitourinary ED: Denies dysuria Musculoskeletal Musculoskeletal: Denies arthralgias or myalgias Integumentary Denies rash Neurologic Neurologic: Denies headache(s) or weakness Psychiatric Psychiatric: Reports anxiety Hematologic/Lymphatic Hematologic/Lymphatic: Reports easy bruising; Denies easy bleeding EXAM Physical Exam Const Vital Signs: 01/17/22 20:13 01/17/22 23:58 01/18/22 00:54 Temperature 97.7 F L Temperature Source Temporal Pulse Rate 67 53 L Respiratory Rate 15 15 Blood Pressure 138/60 H 157/61 H 148/67 H Blood Pressure Mean 86 93 94 Pulse Ox 96 98 Oxygen Delivery Method Room Air Room Air 01/18/22 01:22 Temperature Temperature Source Pulse Rate 58 L Respiratory Rate 15 Blood Pressure 148/67 H Blood Pressure Mean Pulse Ox 97 Oxygen Delivery Method Positive well nourished and well developed Constitutional Narrative: Uncomfortable and in distress secondary to pain General Appearance ED: well developed HEENT Reports dry mucous membranes normocephalic and atraumatic Mouth ED: Yes dry mucous membranes Mouth: dry mucous membranes Eyes PERRL and EOMs intact bilaterally General Eye ED: Negative for scleral icterus Neck supple and no JVD Resp normal respiratory effort and clear to auscultation bilaterally GI non-distended GI Narrative: Diffusely tender. No rebound tenderness. Hyperactive bowel sounds. Palpation: tender; Negative for guarding or rigid Back/Spine no CVA tenderness Extremity full ROM Neuro CN's II-XII intact bilaterally, moves all extremities and no sensory deficits noted Psych mental status grossly normal and thought process normal Skin no wounds MDM MDM MDM Narrative Medical decision making narrative: Patient evaluated for sudden onset of upper abdominal pain. Patient appears quite uncomfortable on initial evaluation. No peritoneal signs. He was seen a couple weeks ago for very similar presentation. Patient's vital signs are n ormal. CBC is normal. BMP is largely unremarkable however his creatinine is mildly elevated at 1.31. This is his baseline. Liver panel shows a mild elevation of his alkaline phosphatase but again this is at his baseline. Lactate is normal at 1.7. High sensitive troponin is normal at 15 and I do not think his abdominal pain is referred cardiac pain. Patient is given morphine for symptom control and on repeat evaluation has complete resolution of his pain. He feels much better. He is much more relaxed. He is given IV fluids in the emergency room. Repeat abdominal exam he does not have any tenderness. Bedside ultrasound performed by my self does not show any pericholecystic fluid or thickened gallbladder wall. Anterior gallbladder wall is 3 mm in thickness. No hydronephrosis noted of the right kidney. Given his normal work-up with known history of gallstones and question of this could be biliary colic. I do not think this is acute cholecystitis at this time. Patient is given a short course of [place] for pain control at home as well as Zofran as he has had some GI upset with opioid pains medication in the past. He is given referral for surgery for further evaluation of his abdominal pain and possible biliary colic/gallstones. He is agreeable this plan of care. He is counseled return precautions. He is counseled on a low-fat diet. Patient discharged home in improved and stable condition. Lab Data Attestation: I reviewed the patient's lab results. Labs: Laboratory Results - last 24 hr 01/17/22 01/17/22 01/17/22 21:35 21:35 23:08 WBC 10.1 RBC 4.47 L Hgb 14.0 Hct 42.5 MCV 95.1 H MCH 31.3 MCHC 32.9 RDW Std Deviation 48.8 H RDW Coeff of [place] 13.9 Plt Count 296 MPV 9.1 Immature Gran % (Auto) 1.200 H Neut % (Auto) 58.5 Lymph % (Auto) 28.3 [place] % (Auto) 6.9 Eos % (Auto) 4.2 Baso % (Auto) 0.9 Absolute Neuts (auto) 5.9 Absolute Lymphs (auto) 2.87 Nucleated RBC % 0 Sodium 137 Potassium 4.7 Chloride 110 H Carbon Dioxide 22.0 Anion Gap 5 BUN 17 Creatinine 1.31 H Estim Creat Clear Calc 57.27 Est GFR (MDRD) Af Amer 70 Est GFR (MDRD) Non-Af 58 L BUN/Creatinine Ratio 13.0 Glucose 128 H Lactic Acid Calcium 8.9 Total Bilirubin 0.50 Direct Bilirubin 0.15 AST 14 L ALT 18 Alkaline Phosphatase 167 H Troponin I High Sens 15 Total Protein 7.0 Albumin 2.9 L Globulin 4.1 Urine Color Urine Clarity Urine pH Ur Specific [place] Urine Protein Urine Glucose (UA) Urine Ketones Urine Occult Blood Urine Nitrite Urine Bilirubin Urine Urobilinogen Ur Leukocyte Esterase Urine RBC Urine WBC Ur Squamous Epith Cells Urine Bacteria Urine Mucus 01/17/22 01/17/22 23:08 23:56 WBC RBC Hgb Hct MCV MCH MCHC RDW Std Deviation RDW Coeff of [place] Plt Count MPV Immature Gran % (Auto) Neut % (Auto) Lymph % (Auto) [place] % (Auto) Eos % (Auto) Baso % (Auto) Absolute Neuts (auto) Absolute Lymphs (auto) Nucleated RBC % Sodium Potassium Chloride Carbon Dioxide Anion Gap BUN Creatinine Estim Creat Clear Calc Est GFR (MDRD) Af Amer Est GFR (MDRD) Non-Af BUN/Creatinine Ratio Glucose Lactic Acid 1.7 Calcium Total Bilirubin Direct Bilirubin AST ALT Alkaline Phosphatase Troponin I High Sens Total Protein Albumin Globulin Urine Color Yellow Urine Clarity Clear Urine pH 5.0 Ur Specific [place] 1.020 Urine Protein Negative Urine Glucose (UA) Normal Urine Ketones Negative Urine Occult Blood Negative Urine Nitrite Negative Urine Bilirubin Negative Urine Urobilinogen Normal Ur Leukocyte Esterase Negative Urine RBC 0 SEEN Urine WBC 0 SEEN Ur Squamous Epith Cells 0 SEEN Urine Bacteria 0 SEEN Urine Mucus 0 SEEN Discharge Plan Triage Chief Complaint: Abd Pain ED Provider: Zoraida Cantu Dx/Rx/DC Orders Clinical Impression: Abdominal pain, Biliary colic symptom, Gallstone Instructions: ED Gallstones with Biliary Colic, ED Abdominal Pain Unkn Cause Male... Prescriptions: New hydrocodone-acetaminophen 5-325 mg tablet 1 tab PO Q8H PRN (Reason: pain) 3 Days Qty: 9 0RF ondansetron 4 mg tablet,disintegrating 4 mg PO Q8H PRN (Reason: nausea and vomiting) Qty: 10 0RF No Action clopidogrel [Plavix] 75 mg tablet 150 mg PO QDAY atorvastatin 80 mg tablet 80 mg PO QHS nitroglycerin 0.4 mg tablet, sublingual 0.4 mg SUBLINGUAL Q5-15M PRN (Reason: Pain, Mild) Rx Instructions: until response; do not exceed 3 doses per episode lisinopril 5 mg tablet 5 mg PO QHS aspirin 81 MG tablet 81 mg PO DAILY@0800 pantoprazole 40 mg tablet,delayed release (DR/EC) 40 mg PO DAILY metoprolol tartrate 25 mg tablet 25 mg PO BID Qty: 180 3RF Primary Care Provider: Annika Villasenor Referrals: Hermes Sheehan MD [Med Staff - Active Staff] - As soon as possible Annika Villasenor MD [Primary Care Provider] - Disposition Disposition: Home, Self Care Discharge Date/Time: 01/18/22 01:23
[2022-01-18 01:22] VITALS: BP 148/67; PULSE 58; RESP 15; O2SAT 97
== END 2022-01-18 01:23 | disposition home or self-care (01) ==
PROVIDERS: Emergency Provider Emergency Medicine; PCP Family Medicine; Visit Provider Emergency Medicine
DX: K80.70 Calculus of gallbladder and bile duct without cholecystitis without obstruction (principal); I42.9 Cardiomyopathy, unspecified; I25.10 Atherosclerotic heart disease of native coronary artery without angina pectoris; F17.210 Nicotine dependence, cigarettes, uncomplicated; E78.5 Hyperlipidemia, unspecified; I10 Essential (primary) hypertension; Z79.82 Long term (current) use of aspirin; Z79.02 Long term (current) use of antithrombotics/antiplatelets; Z79.899 Other long term (current) drug therapy
CPT/HCPCS: 80048; 80076; 81001; 83605; 84484; 85025; 96361; 96374; 99283; J7030; A4216

== ENCOUNTER → 2022-02-20 | Outpatient (CLI) | payer MEDICARE, SELFPAY ==
[2019-08-08 14:05] VITALS: BMI 27.6
--- NOTE | 2022-02-20 11:48 | RAD_ITS ---
STUDY: X-RAY - ORBITS HISTORY: MRI CLEARANCE. HX OF METAL TO EYES. 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 TECHNIQUE: 2 view(s) of the orbits were obtained. COMPARISON: None. FINDINGS: No metallic foreign body identified in the orbits. No significant air fluid levels in the paranasal sinuses. Symmetric appearance of the osseous structures. RAD/Orbits for Foreign Body IMPRESSION: No demonstrated metallic orbital foreign body. Electronically Signed: Joan Villa MD at 12:01 EDT ,
--- NOTE | 2022-02-20 12:06 | MRI_ITS ---
INDICATION: ABD PAIN AFTER EATING ; HX OF ISCHEMIC BOWEL EXAMINATION: MRA - MRA Abdomen WO/W Contrast TECHNIQUE: Routine abdominal MR angiographic protocol was performed. 3D reconstructions were reviewed. IV Contrast Dosage and Agent: YRS YES IV CLARISCAN 17 CC COMPARISON: CT obtained 12/31/2021 and 03/31/2021.. FINDINGS: AORTA: Aortic stent graft is visualized in position. Extensive atherosclerotic disease of the abdominal aorta is seen, T2 prolongation visualized surrounding the distal abdominal aorta that correlates with the aneurysmal dilatation of the visualized on the prior CT scan. Signal dropout visualized within the right distal common iliac artery and right external iliac artery however this could be artifactual due to blooming artifact from the stent. CELIAC ARTERY: Limited value SUPERIOR MESENTERIC ARTERY: Limited evaluation. RENAL ARTERIES: Limited evaluation. INFERIOR MESENTERIC ARTERY: Not visualized. ILIAC ARTERIES: Dense evaluation. No evidence of significant bowel wall thickening, no evidence of bowel distention is seen. No evidence of bowel obstruction. Limited evaluation of the liver, spleen, pancreas, bilateral adrenal glands and bilateral kidneys demonstrates no evidence of focal masses, no evidence of acute pathology. MRI/MRA Abdomen W/ or W/O Contrast IMPRESSION: Limited MRA of the abdomen due to extensive blooming artifact from the abdominal aortic aneurysm/stents.. Electronically Signed: Daniel Valdes MD at 16:35 EDT ,
[2022-02-20 12:45] LABS: CREATININE FINGERSTICK 1.4 mg/dL (0.70-1.30)
== END | disposition home or self-care (01) ==
PROVIDERS: PCP Family Medicine; Referring Provider Family Medicine; Visit Provider Family Medicine
DX: K55.9 Vascular disorder of intestine, unspecified (principal)
CPT/HCPCS: 70030; 74185; A9575; A4216; C8902

== ENCOUNTER 2022-08-13 09:15 | Observation (INO) | payer MEDICARE, SELFPAY ==
[2019-08-08 14:05] VITALS: BMI 27.6
[2022-08-13] VITALS (8 sets, daily range): BP systolic 150–200; BP diastolic 47–121; PULSE 55–84; RESP 14–19; TEMP 36.6; O2SAT 93–100; BMI 27.1; BMI 26.7
--- NOTE | 2022-08-13 09:42 | EKG12_ITS ---
Test Reason : ABDOMINAL PAIN Blood Pressure : / mmHG Vent. Rate : 053 BPM Atrial Rate : 053 BPM P-R Int : 168 ms QRS Dur : 110 ms QT Int : 468 ms P-R-T Axes : 048 023 101 degrees QTc Int : 439 ms Sinus bradycardia with occasional Premature ventricular complexes Inferior infarct , age undetermined Abnormal ECG Confirmed by RADHA STEELE, STEVE ([id number]), makeup editor FLORI SUTHERLAND ([id number]) on 08/15/2022 7:00:34 AM Referred By: Confirmed By:DICKSON GARCIA MD
--- NOTE | 2022-08-13 09:44 | EDS_ITS ---
HPI HPI - GI History of Present Illness Chief Complaint: Abd Pain Informant: patient and family Narrative Narrative: Patient is a 67-year-old male with history of hypertension, coronary artery disease, cardiomyopathy, ischemic colitis, prior CABG as well as AAA with stenting presenting with abdominal pain. Patient states he developed severe abdominal pain around 530 this morning that woke him up from sleep. Its been constant. He states it through his entire abdomen. He has a very hard time describing the characteristics of the pain but states this feels like prior episodes of his abdominal pain. He denies associated chest pain or shortness of breath. I did have an episode of nausea and diaphoresis with the pain. States that he did try to eat a small cinnamon roll this morning with no change in his pain. States food does not seem to affect it. Notes he had sloppy Kevyn's and tater tots for dinner last night. Has previously seen Dr. Sarabia as well as Dr. Sheehan for evaluation of these episodes abdominal pain. Chart review shows that patient was most recently seen in the ER in December 2021 for similar episode. Patient's daughter reports that week and a half ago he had sores in his mouth and a rash on his ankle that was treated with a cream and steroids by his primary care doctor, Dr. Hardin. In addition patient is done with a lot of stress at home as his has brain cancer. [facility] Medical History Arthritis Atherosclerotic heart disease of b[place] coronary artery without angina pectoris CAD in [place] artery Cardiomyopathy Essential hypertension Heart disease History of pneumonia HTN (hypertension) Hyperlipidemia Ischemic colitis NSTEMI (non-ST elevated myocardial infarction) Old myocardial infarction PAD (peripheral artery disease) Personal history of colonic polyps Presence of stent in coronary artery (~06/08/19) Home Medications clopidogrel 75 mg tablet (Plavix) 150 mg PO QDAY 07/24/17 [History Last Taken Unknown] aspirin 81 mg tablet,delayed release 81 mg PO DAILY@0800 01/30/19 [History Last Taken Unknown] atorvastatin 80 mg tablet 80 mg PO QHS 02/16/19 [History Last Taken Unknown] metoprolol tartrate 25 mg tablet 25 mg PO BID #180 tabs 02/25/19 [Rx Last Taken Unknown] lisinopril 5 mg tablet 5 mg PO QHS blood pressure 08/08/19 [History Last Taken Unknown] nitroglycerin 0.4 mg sublingual tablet 0.4 mg sublingual Q5-15M PRN Pain, Mild 08/08/19 [History Last Taken Unknown] pantoprazole 40 mg tablet,delayed release 40 mg PO DAILY GERD 03/31/21 [History Last Taken Unknown] hydrocodone-acetaminophen 5-325mg 5mg-325mg 1 tab PO Q8H PRN pain 3 days #9 tabs 01/18/22 [Rx Last Taken Unknown] ondansetron 4 mg disintegrating tablet 4 mg PO Q8H PRN nausea and vomiting #10 tabs 01/18/22 [Rx Last Taken Unknown] dicyclomine 20 mg tablet 20 mg PO TID PRN abdominal pain #30 tabs 08/13/22 [Rx Last Taken Unknown] Allergy/AdvReac Type Severity Reaction Status Date / Time Sulfa (Sulfonamide Allergy Unknown Verified 08/13/22 09:15 Antibiotics) Family History Father CAD (coronary artery disease) Mother Cancer CAD (coronary artery disease) Surgical History Abdominal aortic aneurysm without rupture History of [id number] bypass History of coronary artery bypass surgery (~2000) History of open heart surgery Presence of coronary angioplasty implant and graft (~06/08/19) S/P PTCA (percutaneous transluminal coronary angioplasty) Social History Smoking Status: Current some day smoker tobacco type: cigarettes alcohol intake: current alcohol intake frequency: a few times a week Alcohol type: beer and hard liquor substance use type: does not use ROS ROS ED Constitutional Constitutional ED: Reports sweats; Denies chills or fever(s) Cardiovascular Cardiovascular: Denies chest pain Respiratory/Chest Respiratory/Chest: Denies cough or dyspnea Gastrointestinal Gastrointestinal: Reports abdominal pain and nausea; Denies constipation, diarrhea, melena or vomiting Genitourinary Genitourinary ED: Denies dysuria or hematuria Musculoskeletal Musculoskeletal: Denies arthralgias, back pain or myalgias Integumentary Denies rash Neurologic Neurologic: Denies headache(s) or weakness Psychiatric Psychiatric: Denies anxiety Hematologic/Lymphatic Hematologic/Lymphatic: Denies easy bleeding or easy bruising EXAM Physical Exam Const Vital Signs: 08/13/22 09:16 08/13/22 10:07 08/13/22 11:35 Temperature 98 F Temperature Source Temporal Pulse Rate 55 L 59 L 61 Respiratory Rate 14 19 H 18 Blood Pressure 184/121 H 193/73 H 161/50 H Blood Pressure Mean 142 113 87 Pulse Ox 100 100 98 Oxygen Delivery Method Room Air Room Air Room Air 08/13/22 13:47 08/13/22 16:52 Temperature Temperature Source Pulse Rate 66 64 Respiratory Rate 18 16 Blood Pressure 190/87 H 200/69 H Blood Pressure Mean 121 112 Pulse Ox 93 96 Oxygen Delivery Method Room Air Room Air Positive well nourished and well developed Constitutional Narrative: Patient appears quite uncomfortable secondary to pain General Appearance ED: well developed; Negative for pallor HEENT Reports moist mucous membranes normocephalic and atraumatic Eyes PERRL Neck supple and no JVD Resp normal respiratory effort and clear to auscultation bilaterally Cardio regular rate, regular rhythm and no murmurs GI GI Narrative: Diffusely tender, does not seem to localize. Patient does not tolerate abdominal exam well and pushes my hand away. No involuntary guarding or rigidity appreciated. No possible mass appreciated. Inspection: Negative for abdominal distention Auscultation: hypoactive bowel sounds Palpation: soft Extremity full ROM Extremity Narrative: 2+ right radial pulse. 1+ left radial pulse. 2+ bilateral DP pulses (patient reports that the artery on his left arm makes a loop which was reported to him by cardiology during the cardiac catheterization) General Extremety ED: Negative for edema or tenderness General Extremity: Negative for edema Neuro moves all extremities Sensorium / Orientation: alert, oriented to person, oriented to place and oriented to time Motor Exam: Negative for general weakness Psych mental status grossly normal and thought process normal Skin General Skin Exam: Negative for jaundice or pallor Rashes: no rashes MDM MDM MDM Narrative Medical decision making narrative: Patient's evaluated sudden onset of abdominal pain. Initially has a hard time describing where it sat. Does not seem to localize however he does seem slightly more tender in the right upper quadrant. Has known history of gallstones. Patient vital signs are significant for hypertension. He is also bradycardic however it shows that patient does take metoprolol. Patient does not think he took his morning medicines however. His pain is slightly out of proportion and a lactic acid as well as a CTA of the chest abdomen pelvis is obtained. Patient does have a history of AAA has been repaired as well as ischemic colitis. Patient does have a mild leukocytosis of 14.1 with left shift. CMP largely unremarkable with creatinine is baseline at 1.25. His initial lactate is elevated at 2.2. Patient is given multiple doses of morphine and then IV Dilaudid with no significant improvement of his pain. He is given a dose of oral Bentyl around the same time he receives Dilaudid. On repeat evaluation he has had improvement of his pain. Given his laboratory findings and abdominal pain without a clear cause I did obtain a surgical consult with Dr. Enamorado. He recommends a right upper quadrant ultrasound. This is obtained does not show any acute process. Discussed again with Dr. Enamorado who feels that likely patient has chronic mesenteric ischemia. Patient received a liter of IV fluid and his lactate is downtrending. Surgery does not feel that patient requires emergent intervention at this time. Recommend outpatient follow-up with primary care as well as surgery. Patient is given his dose of lisinopril. He continues to be hypertensive however his diastolic has improved. Will be given a dose of hydralazine for further blood pressure control prior to discharge. Will be started on Bentyl. Is also encouraged to follow-up with GI. Counseled if he has a further episodes of worsening abdominal pain, fever or black/bloody stools he should return to the emergency room. Patient does verbalize agreement understanding with this. Patient's high sensitivity troponin and EKG did not show any acute ischemic changes and I do not think this is referred cardiac pain. Do not think this is a hypertensive emergency. Discussed with patient that CT did show an ileus. Counseled to avoid eating large meals. Patient currently does not have any vomiting. Patient tolerates joaquín mark and crackers in the emergency room prior to discharge. When nursing went in to give the patient his discharge paperwork he is now complaining of worsening abdominal pain again. Patient is quite uncomfortable again. He is reevaluated. No significant change in his abdominal pain location or physical exam. Given his intractable abdominal pain, leukocytosis, elevated lactate upon arrival and left shift in the setting of presumed mesenteric ischemia I do think patient benefit from admission for further pain control and GI consult. Will page for hospitalist as well as Dr. Sarabia. Lab Data Attestation: I reviewed the patient's lab results. Labs: Laboratory Results - last 24 hr 08/13/22 08/13/22 08/13/22 10:08 10:08 10:08 WBC 14.1 H RBC 4.74 Hgb 14.5 Hct 44.9 MCV 94.7 H MCH 30.6 MCHC 32.3 RDW Std Deviation 51.3 H RDW Coeff of [place] 14.6 Plt Count 292 MPV 10.0 Immature Gran % (Auto) 3.500 H Neut % (Auto) 66.4 Lymph % (Auto) 20.4 [place] % (Auto) 7.3 Eos % (Auto) 2.3 Baso % (Auto) 0.1 Absolute Neuts (auto) 9.3 H Absolute Lymphs (auto) 2.86 Nucleated RBC % 0 Sodium 140 Potassium 4.4 Chloride 110 H Carbon Dioxide 22.0 Anion Gap 8 BUN 20 H Creatinine 1.25 Estim Creat Clear Calc 61.08 Est GFR (MDRD) Af Amer 74 Est GFR (MDRD) Non-Af 61 BUN/Creatinine Ratio 16.0 Glucose 152 H Lactic Acid 2.2 H* Calcium 8.7 Total Bilirubin 0.70 AST 12 L ALT 17 Alkaline Phosphatase 152 H Troponin I High Sens 14 Total Protein 6.6 Albumin 2.9 L Globulin 3.7 Albumin/Globulin Ratio 0.8 L Lipase 245 Urine Color Urine Clarity Urine pH Ur Specific [place] Urine Protein Urine Glucose (UA) Urine Ketones Urine Occult Blood Urine Nitrite Urine Bilirubin Urine Urobilinogen Ur Leukocyte Esterase Urine RBC Urine WBC Ur Squamous Epith Cells Urine Bacteria Urine Mucus 08/13/22 08/13/22 11:20 15:24 WBC RBC Hgb Hct MCV MCH MCHC RDW Std Deviation RDW Coeff of [place] Plt Count MPV Immature Gran % (Auto) Neut % (Auto) Lymph % (Auto) [place] % (Auto) Eos % (Auto) Baso % (Auto) Absolute Neuts (auto) Absolute Lymphs (auto) Nucleated RBC % Sodium Potassium Chloride Carbon Dioxide Anion Gap BUN Creatinine Estim Creat Clear Calc Est GFR (MDRD) Af Amer Est GFR (MDRD) Non-Af BUN/Creatinine Ratio Glucose Lactic Acid 1.6 Calcium Total Bilirubin AST ALT Alkaline Phosphatase Troponin I High Sens Total Protein Albumin Globulin Albumin/Globulin Ratio Lipase Urine Color Yellow Urine Clarity Clear Urine pH 5.0 Ur Specific [place] 1.015 Urine Protein 15 H Urine Glucose (UA) Normal Urine Ketones Negative Urine Occult Blood Negative Urine Nitrite Negative Urine Bilirubin Negative Urine Urobilinogen Normal Ur Leukocyte Esterase 25 H Urine RBC 0 SEEN Urine WBC 0 SEEN Ur Squamous Epith Cells 0 SEEN Urine Bacteria 0 SEEN Urine Mucus 0 SEEN Radiography Diagnostic Testing: Clinical Impression(s) from Imaging Studies Chest/Abdomen/Pelvis CTA 08/13/22 10:42 IMPRESSION: Peripheral calcifications in the thoracic and abdominal aorta with mural thrombus, but no evidence of dissection. There is no significant stenosis. There is a focal aneurysm in the aorta just prior to the bifurcation which has a patent stent graft within it. Chronic interstitial changes in both lung linder with superimposed interstitial edema and honeycombing around the periphery of both lung linder. No suspicious solid abnormality. Tiny gallstones are present without CT evidence of acute cholecystitis Small bowel ileus Colonic diverticulosis No free intraperitoneal fluid, air, or suspicious adenopathy Degenerative bony changes Electronically Signed: Jonas Foster MD at 11:20 EDT , Gallbladder Ultrasound 08/13/22 13:03 IMPRESSION: No suspicious sonographic findings, study limited due to overlying bowel gas Electronically Signed: Jonas Foster MD at 15:13 EDT , Rhythm Strip Rhythm Strip: Sinus bradycardia Rate: 53 Ectopy: PVC(s) EKG Initial EKG: Attestation: I personally reviewed and interpreted this EKG as follows: Interpretation: Sinus Bradycardia Comments: Sinus bradycardia with PVCs at a rate of 53 bpm Normal axis Normal intervals Nonspecific T wave inversions Compared to prior EKG on 12/31/2021 patient's now has PVCs Discharge Plan Triage Chief Complaint: Abd Pain ED Provider: Zoraida Cantu Dx/Rx/DC Orders Clinical Impression: Abdominal pain, Hypertension, Mesenteric ischemia, Intractable abdominal pain Prescriptions: New dicyclomine 20 mg tablet 20 mg PO TID PRN (Reason: abdominal pain) Qty: 30 0RF No Action clopidogrel [Plavix] 75 mg tablet 150 mg PO QDAY atorvastatin 80 mg tablet 80 mg PO QHS nitroglycerin 0.4 mg tablet, sublingual 0.4 mg SUBLINGUAL Q5-15M PRN (Reason: Pain, Mild) Rx Instructions: until response; do not exceed 3 doses per episode lisinopril 5 mg tablet 5 mg PO QHS aspirin 81 MG tablet 81 mg PO DAILY@0800 pantoprazole 40 mg tablet,delayed release (DR/EC) 40 mg PO DAILY hydrocodone-acetaminophen 5-325 mg tablet 1 tab PO Q8H PRN (Reason: pain) 3 Days Qty: 9 0RF ondansetron 4 mg tablet,disintegrating 4 mg PO Q8H PRN (Reason: nausea and vomiting) Qty: 10 0RF metoprolol tartrate 25 mg tablet 25 mg PO BID Qty: 180 3RF Primary Care Provider: Annika Villasenor Referrals: Annika Villasenor MD [Primary Care Provider] - Fidel Enamorado MD [Med Staff - Active Staff] - 10-14 Days if not better Friend,DO Markel [Med Staff - Active Staff] - As soon as possible Activity Restrictions/Additional Instructions: Your work-up was negative for acute cholecystitis (infection of the gallbladder). There is obstruction or acute pathology of the aorta. Is possibly that you could have poor blood flow to the abdomen and eating a larger meal trigger your symptoms. Your CT did show an ileus which is a slowing of the GI tract. Please return to the ER if you develop fever, worsening abdominal pain or black/blood in your stool. Take your regular medicines tonight. Disposition Disposition: Acute Care Hospital [facility]
[2022-08-13] MEDS: 0.9% Normal Saline 1,000 ML 125 ML IV ×2 (10:05→20:29)
[2022-08-13] MEDS: Ondansetron 4 MG/2 ML Vial IV (10:05)
[2022-08-13] MEDS: Morphine 4 MG/ML Syringe IV ×2 (10:06→10:40)
[2022-08-13 10:15] LABS: Absolute Lymphocyte Count 2.86 X10^3/uL (0.83-4.51); Absolute Neutrophil Count 9.3 X10^3/uL (2.0-7.7); Basophil# 0.02 X10^3/uL; Basophil% 0.1 % (0-1); Eosinophil# 0.33 X10^3/uL; Eosinophils% 2.3 % (0-5); Hematocrit 44.9 % (40-54); Hemoglobin 14.5 g/dL (13.0-16.5); Lymphocyte # 2.86 X10^3/ul (0.83-4.51); Lymphocyte % 20.4 % (19-41); Mean Corp Hgb Conc 32.3 g/dL (32-36); Mean Corpuscular Hgb 30.6 pg (27.0-32.0); Mean Corpuscular Volume 94.7 fL (80-94); Monocyte# 1.02 X10^3/uL; Monocyte% 7.3 % (0-10); NRBC Flagged by Analyzer 0 % (0-5); Neutrophil # 9.33 X10^3/uL (2.7-7.7); Neutrophil % 66.4 % (47-70); POSITIVE MORPHOLOGY YES; Platelet Count 292 K/mm3 (150-450); RBC Distribution Width CV 14.6 % (11.6-14.6); RBC Distribution Width SD 51.3 fl (35.1-43.9); Red Blood Count 4.74 M/mm3 (4.6-6.2); White Blood Count 14.1 K/mm3 (4.4-11.0)
[2022-08-13 10:33] LABS: ALB/GLOB Ratio 0.8 RATIO (0.9-2.4); AST(SGOT) 12 U/L (15-37); Alanine Aminotransfer ALT/SGPT 17 U/L (16-61); Albumin, Serum 2.9 g/dL (3.2-5.0); Alkaline Phosphatase 152 U/L (45-117); Anion Gap 8 (5-15); BUN 20 mg/dL (7-18); Calcium,Total 8.7 mg/dL (8.5-10.1); Chloride 110 mmol/L (98-107); Creatinine, Serum 1.25 mg/dL (0.70-1.30); EST Glomerular Filtration Rate 61 mL/min (>60); Est Glom Filt Rate - Afr Amer 74 mL/min (>60); Estimated Creatinine Clearance 61.08 ml/min; Globulin 3.7 g/dL (2.2-4.2); Glucose 152 mg/dL (74-106); Lipase 245 U/L (73-393); Potassium 4.4 mmol/L (3.5-5.1); Protein, Total 6.6 g/dL (6.4-8.2); Sodium Level 140 mmol/L (136-145); Troponin-I HS 14 pg/mL (3.0-78.0)
[2022-08-13 10:42] LABS: Lactic Acid 2.2 mmol/L (0.4-1.9)
--- NOTE | 2022-08-13 10:42 | CT_ITS ---
INDICATION: Abdominal, back and pelvic pain, possible aortic dissection EXAMINATION: CTA CHEST, ABDOMEN AND PELVIS WITH CONTRAST - TECHNIQUE: A CTA of the chest, abdomen, and pelvis is obtained with sagittal and coronal reconstructed MIP views. Three-dimensional surface rendered sequence of the thoracic and abdominal aorta was obtained. A radiation dose optimization technique was used for this scan. 100 mL mL of Isovue-370. Oral contrast: None. COMPARISON: None. FINDINGS: CT CHEST: THORACIC AORTA: Peripheral calcifications without aneurysm or dissection. ABDOMINAL AORTA: Peripheral calcifications with mural thrombus, there is a focal distal abdominal aortic aneurysm at 4.38 cm which has a stent within it. LUNGS: Lungs are hyperexpanded with chronic interstitial changes in both lung linder and superimposed interstitial edema. Scattered pneumatoceles noted in the lower lung linder with honeycombing noted around the periphery of both lung linder. MEDIASTINUM: The thyroid gland is normal. No suspicious mediastinal or hilar adenopathy. HEART: There has been a remote CABG CT ABDOMEN AND PELVIS: LIVER: The liver enhances homogeneously. No masses identified. GALLBLADDER: The CBD is normal. Gallbladder is unremarkable aside from tiny layering gallstones. SPLEEN: Normal. PANCREAS: No masses or inflammation. ADRENAL GLANDS: Normal. KIDNEYS AND URETERS: The kidneys both enhance appropriately. There are normal size and shape. No hydronephrosis or nephrolithiasis. No renal masses or cysts. STOMACH: Normal. SMALL BOWEL: Nondistended fluid-filled small bowel loops are noted consistent with ileus. MESENTERY: No mesenteric inflammation. No ascites. COLON: Retained stool noted in the colon with scattered colonic diverticula, no CT evidence of acute diverticulitis. APPENDIX: The appendix is visualized and normal. Appendix seen on coronal recon images 114 through 121 IVC: Normal. RETROPERITONEUM: No retroperitoneal lymphadenopathy. PELVIC STRUCTURES: Normal bladder. SOFT TISSUES ABDOMEN: The anterior abdominal wall is normal. SOFT TISSUE CHEST: The extrathoracic soft tissues are normal. BONES: Degenerative bony changes throughout the spine and pelvis CT/CTA Chst, Abd, Pel W and/or WO IMPRESSION: Peripheral calcifications in the thoracic and abdominal aorta with mural thrombus, but no evidence of dissection. There is no significant stenosis. There is a focal aneurysm in the aorta just prior to the bifurcation which has a patent stent graft within it. Chronic interstitial changes in both lung linder with superimposed interstitial edema and honeycombing around the periphery of both lung linder. No suspicious solid abnormality. Tiny gallstones are present without CT evidence of acute cholecystitis Small bowel ileus Colonic diverticulosis No free intraperitoneal fluid, air, or suspicious adenopathy Degenerative bony changes Electronically Signed: Jonas Foster MD at 11:20 EDT ,
[2022-08-13 10:50] LABS: Differential Indicated SCAN CRITERIA MET
[2022-08-13] MEDS: Dicyclomine 10 MG Capsule 20 MG PO (12:21)
[2022-08-13] MEDS: HYDROmorphone 1 MG/ML Syringe IV (12:27)
[2022-08-13 12:28] LABS: Bacteria 0 SEEN /hpf (None Seen); Mucous, Urine 0 SEEN /hpf (<or=2+); Red Blood Cells-Urine 0 SEEN /hpf (0-5); Squamous Epithelial Cells - UA 0 SEEN /hpf (0-5); White Blood Cells 0 SEEN /hpf (0-5)
[2022-08-13 12:42] LABS: Color, Urine Yellow (Yellow); Glucose, Dipstick Normal (Normal); Ketone-Dipstick Negative (Negative); Leukocyte Esterase-Dipstick 25 /ul (Negative); Nitrite-Dipstick Negative (Negative); Occult Blood-Urine Negative /ul (Negative); Protein-Dipstick 15 mg/dl (Negative); Specific Gravity, Urine 1.015 (1.002-1.030); Urine Bilirubin Dipstick Negative (Negative); Urine Clarity Clear (Clear); Urine Urobilinogen Normal (Normal)
--- NOTE | 2022-08-13 13:03 | US_ITS ---
STUDY: ABDOMINAL ULTRASOUND - RIGHT UPPER QUADRANT REASON FOR VISIT: Male, 67 years old epigastric pain, nausea TECHNIQUE: Ultrasound evaluation of the right upper quadrant was performed with real-time and static ag-scale imaging. TECHNICAL QUALITY: Limited. Examination limited by bowel gas. COMPARISON: None. FINDINGS: Liver: The liver measures 16.3 cm. There is normal echogenicity of the liver. The bile ducts are within normal limits. There is hepatic color flow. The direction of portal flow is hepatopetal. There is no demonstrated mass lesion. Gallbladder: Normal distended gallbladder. The gallbladder wall measures 2.8 mm. There is a negative sonographic Rojo''s sign. There is no pericholecystic fluid. There are no gallstones. Common Bile Duct (C.B.D.): The common bile duct measures 4.0 mm. Pancreas: There is nonvisualization of the pancreas. Right Kidney: Normal size of the right kidney. The right kidney measures 10.2 x 3.9 x 6.4 cm. Normal renal cortex. The right cortex measures 1.7 cm. There is no demonstrated renal mass or cyst. There is no right hydronephrosis. US/Gallbladder IMPRESSION: No suspicious sonographic findings, study limited due to overlying bowel gas Electronically Signed: Jonas Foster MD at 15:13 EDT ,
[2022-08-13 14:12] LABS: Reflex Lactate? Y
[2022-08-13 16:15] LABS: Lactic Acid 1.6 mmol/L (0.4-1.9)
[2022-08-13] MEDS: Lisinopril 5 MG Tablet PO ×2 (16:15→21:43)
--- NOTE | 2022-08-13 16:18 | HP.PCM_ITS ---
HPI - General General Date of Service: 08/13/22 Chief Complaint: Acute on chronic abdominal pain HPI Narrative CHEY ROSADO, is a 67 M who presents to [facility] with complaints of abdominal pain has been present for at least 1 year. Patient states that he has acute exacerbations of this pain and they come on with a significant intensity, but they have always improved with morphine and he relates today that this was not the case. He states that today's pain began at approximately 530 this morning waking him out of sleep. This pain is described as constant, but Mr. Rosado reports that it increased in intensity till he could not ignore it 3 h ours later. He describes the pain as occurring throughout his upper abdomen, but is unable to specify beyond this general location. The pain was associated with nausea but no vomiting. He did not register a fever, but did complain of chills. He denies any recent diarrhea or constipation. His last meal was sloppy Kevyn's and tater tots. ER work-up was notable for CBC that demonstrated leukocytosis with left shift, mildly elevated alkaline phosphatase, and CTA of the chest and abdomen that did not show any acute abnormalities. Patient has a complex CV history inclusive of an open abdominal aortic aneurysm repair in the mid that required revisional surgeries x2 through the [facility]. He also has had 8 coronary stents and remains on Plavix daily. He has had previous admission for ischemic colitis?endoscopically confirmed in the vicinity of the sigmoid colon. He continues to smoke daily?but his daughter confirms that his use is dramatically cut back from his prior habit . [facility] Medical History Arthritis Atherosclerotic heart disease of [place] coronary artery without angina pectoris CAD in [place] artery Cardiomyopathy Essential hypertension Heart disease History of pneumonia HTN (hypertension) Hyperlipidemia Ischemic colitis NSTEMI (non-ST elevated myocardial infarction) Old myocardial infarction PAD (peripheral artery disease) Personal history of colonic polyps Presence of stent in coronary artery (~06/08/19) Home Medications clopidogrel 75 mg tablet (Plavix) 150 mg PO QDAY 07/24/17 [History Last Taken Unknown] aspirin 81 mg tablet,delayed release 81 mg PO DAILY@0800 01/30/19 [History Last Taken Unknown] atorvastatin 80 mg tablet 80 mg PO QHS 02/16/19 [History Last Taken Unknown] metoprolol tartrate 25 mg tablet 25 mg PO BID #180 tabs 02/25/19 [Rx Last Taken Unknown] lisinopril 5 mg tablet 5 mg PO QHS blood pressure 08/08/19 [History Last Taken Unknown] nitroglycerin 0.4 mg sublingual tablet 0.4 mg sublingual Q5-15M PRN Pain, Mild 08/08/19 [History Last Taken Unknown] pantoprazole 40 mg tablet,delayed release 40 mg PO DAILY GERD 03/31/21 [History Last Taken Unknown] hydrocodone-acetaminophen 5-325mg 5mg-325mg 1 tab PO Q8H PRN pain 3 days #9 tabs 01/18/22 [Rx Last Taken Unknown] ondansetron 4 mg disintegrating tablet 4 mg PO Q8H PRN nausea and vomiting #10 tabs 01/18/22 [Rx Last Taken Unknown] Allergy/AdvReac Type Severity Reaction Status Date / Time Sulfa (Sulfonamide Allergy Unknown Verified 08/13/22 09:15 Antibiotics) Family History Father CAD (coronary artery disease) Mother Cancer CAD (coronary artery disease) Surgical History Abdominal aortic aneurysm without rupture History of egpea-wcfge-htrfoue bypass History of coronary artery bypass surgery (~2000) History of open heart surgery Presence of coronary angioplasty implant and graft (~06/08/19) S/P PTCA (percutaneous transluminal coronary angioplasty) Social History Smoking Status: Current some day smoker tobacco type: cigarettes alcohol intake: current alcohol intake frequency: a few times a week Alcohol type: beer and hard liquor substance use type: does not use ROS Constitutional Constitutional: Reports chills; Denies fever(s) or weight loss Gastrointestinal Gastrointestinal: Reports abdominal pain and nausea; Denies constipation, diarrhea, hematochezia, melena or vomiting Vital Signs Vital Signs Vital Signs: 08/13/22 09:16 08/13/22 10:07 08/13/22 11:35 Temperature 98 F Temperature Source Temporal Pulse Rate 55 L 59 L 61 Respiratory Rate 14 19 H 18 Blood Pressure 184/121 H 193/73 H 161/50 H Blood Pressure Mean 142 113 87 Pulse Ox 100 100 98 Oxygen Delivery Method Room Air Room Air Room Air 08/13/22 13:47 Temperature Temperature Source Pulse Rate 66 Respiratory Rate 18 Blood Pressure 190/87 H Blood Pressure Mean 121 Pulse Ox 93 Oxygen Delivery Method Room Air Weight Weight: 194 lb 0.108 oz Body Mass Index (BMI) 27.1 Physical Exam GI GI Narrative: Nondistended, long, well?healed midline laparotomy scar. Soft, no palpable hernia. Tenderness with deep palpation of the epigastrium and right upper quadrant. Negative Rojo sign. Results Lab / Micro Data Result Diagrams: 08/13/22 10:08 08/13/22 10:08 Labs: Laboratory Results - last 24 hr 08/13/22 10:08: WBC 14.1 H, RBC 4.74, Hgb 14.5, Hct 44.9, MCV 94.7 H, MCH 30.6, MCHC 32.3, RDW Std Deviation 51.3 H, RDW Coeff of [place] 14.6, Plt Count 292, MPV 10.0, Immature Gran % (Auto) 3.500 H, Neut % (Auto) 66.4, Lymph % (Auto) 20.4, [place] % (Auto) 7.3, Eos % (Auto) 2.3, Baso % (Auto) 0.1, Absolute Neuts (auto) 9.3 H, Absolute Lymphs (auto) 2.86, Nucleated RBC % 0 08/13/22 10:08: Sodium 140, Potassium 4.4, Chloride 110 H, Carbon Dioxide 22.0, Anion Gap 8, BUN 20 H, Creatinine 1.25, Estim Creat Clear Calc 61.08, Est GFR (MDRD) Af Amer 74, Est GFR (MDRD) Non-Af 61, BUN/Creatinine Ratio 16.0, Glucose 152 H, Calcium 8.7, Total Bilirubin 0.70, AST 12 L, ALT 17, Alkaline Phosphatase 152 H, Troponin I High Sens 14, Total Protein 6.6, Albumin 2.9 L, Globulin 3.7, Albumin/Globulin Ratio 0.8 L, Lipase 245 08/13/22 10:08: Lactic Acid 2.2 H* 08/13/22 11:20: Urine Color Yellow, Urine Clarity Clear, Urine pH 5.0, Ur Specific [place] 1.015, Urine Protein 15 H, Urine Glucose (UA) Normal, Urine Ketones Negative, Urine Occult Blood Negative, Urine Nitrite Negative, Urine Bilirubin Negative, Urine Urobilinogen Normal, Ur Leukocyte Esterase 25 H, Urine RBC 0 SEEN, Urine WBC 0 SEEN, Ur Squamous Epith Cells 0 SEEN, Urine Bacteria 0 SEEN, Urine Mucus 0 SEEN 08/13/22 15:24: Lactic Acid 1.6 Radiology Impression Chest/Abdomen/Pelvis CTA 08/13/22 10:42 IMPRESSION: Peripheral calcifications in the thoracic and abdominal aorta with mural thrombus, but no evidence of dissection. There is no significant stenosis. There is a focal aneurysm in the aorta just prior to the bifurcation which has a patent stent graft within it. Chronic interstitial changes in both lung linder with superimposed interstitial edema and honeycombing around the periphery of both lung linder. No suspicious solid abnormality. Tiny gallstones are present without CT evidence of acute cholecystitis Small bowel ileus Colonic diverticulosis No free intraperitoneal fluid, air, or suspicious adenopathy Degenerative bony changes Electronically Signed: Jonas Foster MD at 11:20 EDT , Gallbladder Ultrasound 08/13/22 13:03 IMPRESSION: No suspicious sonographic findings, study limited due to overlying bowel gas Electronically Signed: Jonas Foster MD at 15:13 EDT , Assessment & Plan Assessment/Plan (1) Abdominal pain: PLAN: This is a 67-year-old male, with extensive cardiovascular history?inclusive of open AAA repair and subsequent revisions, who presents with a year-long history of acute on chronic abdominal pain. Patient presents with his daughter and they jointly provided the history. Apparently Mr. Rosado has been experiencing his acute exacerbations with increasing frequency, but both Mr. Rosado and his daughter state that they have not been given a clear answer as to the cause of this pain. They confirm a history of ischemic colitis as diagnosed with Dr. Sarabia last year and reference an evaluation with Dr. Sheehan who reportedly told Mr. Rosado that there was no way this was his gallbladder. They admit that he has not undergone a right upper quadrant ultrasound for about a year. On exam, Mr. Rosado had tenderness of the epigastrium as well as the right upper quadrant, but reported more significant tenderness of the right upper quadrant?with a negative Rojo sign. Based on this exam I recommended a right upper quadrant ultrasound which was read as normal with no evidence of cholecystitis. Radiology did note that the study was somewhat compromised by overlying bowel gas and I believe this is why they were unable to see the finding of gallstones that were identified in CT imaging. With this diagnosis ruled out, my differential would include entities such as chronic mesenteric ischemia (there does not appear to be argument for acute mesenteric ischemia based on patient's near normal lactate and absence of any vascular swelling or stranding about the bowel), peptic ulcer disease, or other. Emergency medicine notified me that patient's pain complaints had improved so I recommended outp atient follow-up with his PCP as well as potentially vascular surgery given the suspicion for possible chronic mesenteric ischemia. I am also happy to see the patient in a follow-up visit if if it might be felt as beneficial. Charges/Coding Visit Charges OBSV E&M: 37878 Observ/hosp same date L2
[2022-08-13] MEDS: hydrALAZINE 20 MG/ML Vial 10 MG IV (17:08)
--- NOTE | 2022-08-13 17:15 | ED.RN ---
PT CONTINUES TO C/O ABD PAIN 4-5:10 BUT I FEEL IT'S COMING BACK. PT CLUTCHING ABD AND SL RESTLESS IN BED. MED FOR HTN AT THIS TIME. INFORMED DR THAT ABD PAIN REMAINS. DR STATES SHE WILL ADMIT PT. PT INFORMED OF ADMISSION AND AGREEABLE
--- NOTE | 2022-08-13 17:17 | NURSING ---
HOSPITALIST PAGED DR MATA PAGED
[2022-08-13] MEDS: HYDROmorphone 0.5 MG/0.5 ML SYRINGE IV (17:20)
--- NOTE | 2022-08-13 17:35 | NURSING ---
MED SURG OBS GALARZA INTRACTABLE ABD PAIN
--- NOTE | 2022-08-13 18:11 | CON.PCM.GI_ITS ---
HPI Consult Data Date of Consult: 08/13/22 HPI Narrative Reason for Consultation: Abdominal pain HPI Narrative: CHEY ROSADO, is a 67 M who presents with worsening abdominal pain. Patient states he developed severe abdominal pain around 530 this morning that woke him up from sleep.? Its been constant.? He states it through his entire abdomen.? He has a very hard time describing the characteristics of the pain but states this feels like prior episodes of his abdominal pain. ? He denies associated chest pain or shortness of breath.? I did have an episode of nausea and diaphoresis with the pain.? States that he did try to eat a small cinnamon roll this morning with no change in his pain.? States food does not seem to affect it.? Notes he had sloppy Kevyn's and tater tots for dinner last night.? He had a similar episode in December 2021.? He is doing with a lot of stress at home as his has brain cancer. He also has underlying extensive cardiac and peripheral vascular history for comment on abdominal aortic aneurysm/mural thrombus superimposed upon a history of underlying CAD, PCI, CABG, ischemic mediated cardiomyopathy, extensive peripheral arterial occlusive disease, hyperlipidemia, hypertension. Previously I saw him for this i in the setting of acute gastrointestinal bleeding process potentially secondary to an underlying ischemic colitis. The patient has undergone cardiovascular evaluation locally in the past-no ninvasively.? He has undergone invasive evaluation and care in the past through the [facility] system.? He is also been followed for his extensive peripheral arterial occlusive disease through the [facility] system. At the present time he does not complain of any ongoing symptoms of classic angina pectoris and he has had no overt issues of obvious CHF or pulmonary edema.? There has been no report of near syncope or syncope. He states his main concern was abdominal discomfort.? He was noted to have gastrointestinal bleeding.? 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 However the CT angiography did not show that at the time. He underwent an abdominal/pelvic CTA.? He was reported as having the appearance of a stable abdominal aorta with a 3.8 cm aneurysm proximal to an endoluminal stent graft with associated mural thrombus. [facility] Medical History Arthritis Atherosclerotic heart disease of [place] coronary artery without angina pectoris CAD in [place] artery Cardiomyopathy Essential hypertension Heart disease History of pneumonia HTN (hypertension) Hyperlipidemia Ischemic colitis NSTEMI (non-ST elevated myocardial infarction) Old myocardial infarction PAD (peripheral artery disease) Personal history of colonic polyps Presence of stent in coronary artery (~06/08/19) Home Medications clopidogrel 75 mg tablet (Plavix) 150 mg PO QDAY 07/24/17 [History Last Taken Unknown] aspirin 81 mg tablet,delayed release 81 mg PO DAILY@0800 01/30/19 [History Last Taken Unknown] atorvastatin 80 mg tablet 80 mg PO QHS 02/16/19 [History Last Taken Unknown] metoprolol tartrate 25 mg tablet 25 mg PO BID #180 tabs 02/25/19 [Rx Last Taken Unknown] lisinopril 5 mg tablet 5 mg PO QHS blood pressure 08/08/19 [History Last Taken Unknown] nitroglycerin 0.4 mg sublingual tablet 0.4 mg sublingual Q5-15M PRN Pain, Mild 08/08/19 [History Last Taken Unknown] pantoprazole 40 mg tablet,delayed release 40 mg PO DAILY GERD 03/31/21 [History Last Taken Unknown] hydrocodone-acetaminophen 5-325mg 5mg-325mg 1 tab PO Q8H PRN pain 3 days #9 tabs 01/18/22 [Rx Last Taken Unknown] ondansetron 4 mg disintegrating tablet 4 mg PO Q8H PRN nausea and vomiting #10 tabs 01/18/22 [Rx Last Taken Unknown] dicyclomine 20 mg tablet 20 mg PO TID PRN abdominal pain #30 tabs 08/13/22 [Rx Last Taken Unknown] Allergy/AdvReac Type Severity Reaction Status Date / Time Sulfa (Sulfonamide Allergy Unknown Verified 08/13/22 09:15 Antibiotics) Family History Father CAD (coronary artery disease) Mother Cancer CAD (coronary artery disease) Surgical History Abdominal aortic aneurysm without rupture History of phbkd-[id number]-[id number] bypass History of coronary artery bypass surgery (~2000) History of open heart surgery Presence of coronary angioplasty implant and graft (~06/08/19) S/P PTCA (percutaneous transluminal coronary angioplasty) Social History Smoking Status: Current some day smoker tobacco type: cigarettes alcohol intake: current alcohol intake frequency: a few times a week Alcohol type: beer and hard liquor substance use type: does not use ROS Constitutional Constitutional: Reports chills; Denies fever(s) or weight loss Gastrointestinal Gastrointestinal: Reports abdominal pain and nausea; Denies constipation, diarrhea, hematochezia, melena or vomiting Physical Exam Const alert, oriented x3 and no apparent distress Orientation / Consciousness: awake HEENT normocephalic, head/scalp atraumatic and hearing grossly normal bilaterally Eyes PERRL, EOMs intact bilaterally and conjunctivae normal Neck full ROM, supple and no JVD Resp clear to auscultation bilaterally Cardio regular rate, regular rhythm, S1 normal heart sound and S2 normal heart sound GI GI Narrative: Positive bowel sounds: Positive tenderness to palpation Extremity no pedal edema Skin no rashes or lesions noted Neuro oriented x3, moves all extremities, no focal motor deficits and no sensory deficits noted Psych mental status grossly normal Lab / Micro Data Result Diagrams: 08/13/22 10:08 08/13/22 10:08 Labs: Laboratory Results - last 24 hr 08/13/22 10:08: WBC 14.1 H, RBC 4.74, Hgb 14.5, Hct 44.9, MCV 94.7 H, MCH 30.6, MCHC 32.3, RDW Std Deviation 51.3 H, RDW Coeff of [place] 14.6, Plt Count 292, MPV 10.0, Immature Gran % (Auto) 3.500 H, Neut % (Auto) 66.4, Lymph % (Auto) 20.4, [place] % (Auto) 7.3, Eos % (Auto) 2.3, Baso % (Auto) 0.1, Absolute Neuts (auto) 9.3 H, Absolute Lymphs (auto) 2.86, Nucleated RBC % 0 08/13/22 10:08: Sodium 140, Potassium 4.4, Chloride 110 H, Carbon Dioxide 22.0, Anion Gap 8, BUN 20 H, Creatinine 1.25, Estim Creat Clear Calc 61.08, Est GFR (MDRD) Af Amer 74, Est GFR (MDRD) Non-Af 61, BUN/Creatinine Ratio 16.0, Glucose 152 H, Calcium 8.7, Total Bilirubin 0.70, AST 12 L, ALT 17, Alkaline Phosphatase 152 H, Troponin I High Sens 14, Total Protein 6.6, Albumin 2.9 L, Globulin 3.7, Albumin/Globulin Ratio 0.8 L, Lipase 245 08/13/22 10:08: Lactic Acid 2.2 H* 08/13/22 11:20: Urine Color Yellow, Urine Clarity Clear, Urine pH 5.0, Ur Specific [place] 1.015, Urine Protein 15 H, Urine Glucose (UA) Normal, Urine Ketones Negative, Urine Occult Blood Negative, Urine Nitrite Negative, Urine Bilirubin Negative, Urine Urobilinogen Normal, Ur Leukocyte Esterase 25 H, Urine RBC 0 SEEN, Urine WBC 0 SEEN, Ur Squamous Epith Cells 0 SEEN, Urine Bacteria 0 SEEN, Urine Mucus 0 SEEN 08/13/22 11:20: Ur Drug Screen Comment 08/13/22 15:24: Lactic Acid 1.6 Rhythm Strip Rhythm Strip: Sinus bradycardia Rate: 53 Ectopy: PVC(s) Radiology Impression Chest/Abdomen/Pelvis CTA 08/13/22 10:42 IMPRESSION: Peripheral calcifications in the thoracic and abdominal aorta with mural thrombus, but no evidence of dissection. There is no significant stenosis. There is a focal aneurysm in the aorta just prior to the bifurcation which has a patent stent graft within it. Chronic interstitial changes in both lung linder with superimposed interstitial edema and honeycombing around the periphery of both lung linder. No suspicious solid abnormality. Tiny gallstones are present without CT evidence of acute cholecystitis Small bowel ileus Colonic diverticulosis No free intraperitoneal fluid, air, or suspicious adenopathy Degenerative bony changes Electronically Signed: Jonas Foster MD at 11:20 EDT , Gallbladder Ultrasound 08/13/22 13:03 IMPRESSION: No suspicious sonographic findings, study limited due to overlying bowel gas Electronically Signed: Jonas Foster MD at 15:13 EDT , Assessment & Plan Assessment/Plan (1) Ischemic colitis: PLAN: The working diagnosis is possible chronic mesenteric ischemia from the findings on the previous CT scan. This current CT scan does not show any changes in his mural thrombus that as long mural thrombus that is extending up into the aortic arch. Patient that he is still smoking that could definitely contribute to his mesenteric ischemia. His lactic acidosis did improve with IV fluids which is a very good sign. I think that he would benefit from a capsule endoscopy as an outpatient to see if there is any signs of chronic ischemia in his enteric GI system. I will check an ESR, CRP, repeat his amylase, lipase. I will also check LDH, protein electrophoresis to see if he has any hyperproteinemia associated with cigarette smoking which could be another impetus for him to stop smoking. IV fluids for his hyponatremia and potassium replacement for his hypokalemia. (2) LGI bleed: PLAN: Recheck a CBC and a CMP at 6:00. Charges/Coding Visit Charges Inpatient E&M: 99438 Init Hosp L3
--- NOTE | 2022-08-13 18:39 | PCM.HP.STD ---
HPI - General General Date of Admission: 08/13/22 Date of Service: 08/13/22 Chief Complaint: Acute on chronic abdominal pain HPI Narrative CHEY ROSADO, is a 67 M with a history of abdominal pain, ischemic colitis, hypertension, and coronary artery disease who presented to [facility] 08/13/2022 for acute on chronic intractable abdominal pain and nausea. He presented to the ED in the morning and reported he had severe abdominal pain around 5:30 in the morning that woke him up from sleep and it was constant through his entire abdomen, he has had episodes like this in the past and usually a dose of pain medication takes away and he is able to go home however he was not improving in the emergency department. He additionally had nausea and vomiting. He has been evaluated in the past for these episodes of abdominal pain with no definitive answer and it was felt there might be a component of mesenteric ischemia given his significant vascular problems. Additionally he recently had some sores in his mouth and a rash on his ankle that was treated with steroids by his primary care doctor and the area around his mouth resolved in ankles and was completely healed. In the ED he was noted to have a white count of 14.1 and a creatinine of 1.25 and initial lactate of 2.2. He had received morphine and Dilaudid with only mild improvement in his pain. ED physician discussed with surgeon on-call and right upper quadrant ultrasound was recommended which had no acute process. It was felt that he likely has chronic mesenteric ischemia and no urgent surgical intervention at this time. Patient received fluids and pain medication and medication for BP. CT obtained in the ED did show possible ileus. Eventually pain had started to improve but shortly before he was to be discharged from the emergency department he reported increased pain again and GI contacted and hospitalist called for admission. Evaluated patient at bedside with family member and he reported the general pain in his abdomen that he is unable to localize and has had this off and on for months but usually will resolve with a dose of pain medication entirely. Daughter did reiterate the rash that he had and reports it is going around his mouth and almost gone on his ankle and he had never had anything like that before. When asking about timing of the pain he said it is usually at night or early in the morning and does not necessarily associate with food though he has been nauseous and eating has made that part worse. Denies any substance use including marijuana. [facility] Medical History Arthritis Atherosclerotic heart disease of [place] coronary artery without angina pectoris CAD in [place] artery Cardiomyopathy Essential hypertension Heart disease History of pneumonia HTN (hypertension) Hyperlipidemia Ischemic colitis NSTEMI (non-ST elevated myocardial infarction) Old myocardial infarction PAD (peripheral artery disease) Personal history of colonic polyps Presence of stent in coronary artery (~06/08/19) Home Medications clopidogrel 75 mg tablet (Plavix) 150 mg PO QDAY 07/24/17 [History Last Taken Unknown] aspirin 81 mg tablet,delayed release 81 mg PO DAILY@0800 01/30/19 [History Last Taken Unknown] atorvastatin 80 mg tablet 80 mg PO QHS 02/16/19 [History Last Taken Unknown] metoprolol tartrate 25 mg tablet 25 mg PO BID #180 tabs 02/25/19 [Rx Last Taken Unknown] lisinopril 5 mg tablet 5 mg PO QHS blood pressure 08/08/19 [History Last Taken Unknown] nitroglycerin 0.4 mg sublingual tablet 0.4 mg sublingual Q5-15M PRN Pain, Mild 08/08/19 [History Last Taken Unknown] pantoprazole 40 mg tablet,delayed release 40 mg PO DAILY GERD 03/31/21 [History Last Taken Unknown] hydrocodone-acetaminophen 5-325mg 5mg-325mg 1 tab PO Q8H PRN pain 3 days #9 tabs 01/18/22 [Rx Last Taken Unknown] ondansetron 4 mg disintegrating tablet 4 mg PO Q8H PRN nausea and vomiting #10 tabs 01/18/22 [Rx Last Taken Unknown] dicyclomine 20 mg tablet 20 mg PO TID PRN abdominal pain #30 tabs 08/13/22 [Rx Last Taken Unknown] Allergy/AdvReac Type Severity Reaction Status Date / Time Sulfa (Sulfonamide Allergy Unknown Verified 08/13/22 09:15 Antibiotics) Family History Father CAD (coronary artery disease) Mother Cancer CAD (coronary artery disease) Surgical History Abdominal aortic aneurysm without rupture History of [id number] bypass History of coronary artery bypass surgery (~2000) History of open heart surgery Presence of coronary angioplasty implant and graft (~06/08/19) S/P PTCA (percutaneous transluminal coronary angioplasty) Social History Smoking Status: Current some day smoker tobacco type: cigarettes alcohol intake: current alcohol intake frequency: a few times a week Alcohol type: beer and hard liquor substance use type: does not use ROS ROS Narrative General: Denies fever/chills HENT: Denies headache, denies stuffy nose, denies sore throat EYES: Denies changes in vision Resp: Denies cough, denies shortness of breath Cardiac: Denies chest pain GI: Generalized abdominal pain, nausea and poor p.o. intake : Denies changes in urination Extremity: Denies swelling MSK: Denies weakness Neuro: Denies any numbness/tingling Heme: Denies any bleeding or bruising Skin: Had perioral rash and rash on right ankle Psychiatric: No complaints voiced Vital Signs Vital Signs Vital Signs: 08/13/22 09:16 08/13/22 10:07 08/13/22 11:35 Temperature 98 F Temperature Source Temporal Pulse Rate 55 L 59 L 61 Respiratory Rate 14 19 H 18 Blood Pressure 184/121 H 193/73 H 161/50 H Blood Pressure Mean 142 113 87 Pulse Ox 100 100 98 Oxygen Delivery Method Room Air Room Air Room Air 08/13/22 13:47 08/13/22 16:52 08/13/22 17:37 Temperature 98 F Temperature Source Temporal Pulse Rate 66 64 63 Respiratory Rate 18 16 16 Blood Pressure 190/87 H 200/69 H 150/47 H Blood Pressure Mean 121 112 81 Pulse Ox 93 96 96 Oxygen Delivery Method Room Air Room Air Room Air Weight Weight: 88 kg Body Mass Index (BMI) 27.1 Physical Exam Narrative General: Alert, oriented HEENT: Atraumatic, normocephalic Eyes: Anicteric, normal conjunctiva, extraocular movements grossly intact Neck: Supple Respiratory: Clear to auscultation bilaterally, normal respiratory effort Cardiovascular: Regular rate and rhythm GI: Soft, mildly tender to palpation diffusely, no rebound, no guarding, no rigidity,, nondistended Extremities: No edema Musculoskeletal: Moving all extremities Neuro: No overt focal neurological deficits Skin: No rash around mouth, has slight scaly rash on lateral aspect of right ankle which is very faint with no drainage Psych: Slightly irritable Results Lab / Micro Data Result Diagrams: 08/13/22 10:08 08/13/22 10:08 Labs: Laboratory Results - last 24 hr 08/13/22 10:08: WBC 14.1 H, RBC 4.74, Hgb 14.5, Hct 44.9, MCV 94.7 H, MCH 30.6, MCHC 32.3, RDW Std Deviation 51.3 H, RDW Coeff of [place] 14.6, Plt Count 292, MPV 10.0, Immature Gran % (Auto) 3.500 H, Neut % (Auto) 66.4, Lymph % (Auto) 20.4, [place] % (Auto) 7.3, Eos % (Auto) 2.3, Baso % (Auto) 0.1, Absolute Neuts (auto) 9.3 H, Absolute Lymphs (auto) 2.86, Nucleated RBC % 0 08/13/22 10:08: Sodium 140, Potassium 4.4, Chloride 110 H, Carbon Dioxide 22.0, Anion Gap 8, BUN 20 H, Creatinine 1.25, Estim Creat Clear Calc 61.08, Est GFR (MDRD) Af Amer 74, Est GFR (MDRD) Non-Af 61, BUN/Creatinine Ratio 16.0, Glucose 152 H, Calcium 8.7, Total Bilirubin 0.70, AST 12 L, ALT 17, Alkaline Phosphatase 152 H, Troponin I High Sens 14, Total Protein 6.6, Albumin 2.9 L, Globulin 3.7, Albumin/Globulin Ratio 0.8 L, Lipase 245 08/13/22 10:08: Lactic Acid 2.2 H* 08/13/22 11:20: Urine Color Yellow, Urine Clarity Clear, Urine pH 5.0, Ur Specific [place] 1.015, Urine Protein 15 H, Urine Glucose (UA) Normal, Urine Ketones Negative, Urine Occult Blood Negative, Urine Nitrite Negative, Urine Bilirubin Negative, Urine Urobilinogen Normal, Ur Leukocyte Esterase 25 H, Urine RBC 0 SEEN, Urine WBC 0 SEEN, Ur Squamous Epith Cells 0 SEEN, Urine Bacteria 0 SEEN, Urine Mucus 0 SEEN 08/13/22 11:20: Ur Drug Screen Comment 08/13/22 15:24: Lactic Acid 1.6 Rhythm Strip Rhythm Strip: Sinus bradycardia Rate: 53 Ectopy: PVC(s) Radiology Impression Chest/Abdomen/Pelvis CTA 08/13/22 10:42 IMPRESSION: Peripheral calcifications in the thoracic and abdominal aorta with mural thrombus, but no evidence of dissection. There is no significant stenosis. There is a focal aneurysm in the aorta just prior to the bifurcation which has a patent stent graft within it. Chronic interstitial changes in both lung linder with superimposed interstitial edema and honeycombing around the periphery of both lung linder. No suspicious solid abnormality. Tiny gallstones are present without CT evidence of acute cholecystitis Small bowel ileus Colonic diverticulosis No free intraperitoneal fluid, air, or suspicious adenopathy Degenerative bony changes Electronically Signed: Jonas Foster MD at 11:20 EDT , Gallbladder Ultrasound 08/13/22 13:03 IMPRESSION: No suspicious sonographic findings, study limited due to overlying bowel gas Electronically Signed: Jonas Foster MD at 15:13 EDT , Assessment & Plan Assessment/Plan (1) Intractable abdominal pain: PLAN: Plan #Intractable nausea and vomiting -Unclear etiology, possibly secondary to ileus, CTA chest abdomen pelvis demonstrated peripheral calcifications and thoracic and abdominal aorta with mural thrombus and no evidence of dissection with no significant stenosis. Focal aneurysm in the aorta just prior to the bifurcation which has a patent stent graft within it. Chronic interstitial changes in both lung linder with superimposed interstitial edema and honeycombing around the periphery of both lungs. Tiny gallstones on CT without acute cholecystitis, did report small bowel ileus and colonic diverticulosis. -Right upper quadrant with no suspicious sonographic findings -will admit and give clear liquids and advance as tolerated, patient presently on fluids -Gastroenterology consulted and autoimmune work-up begun -Alk phos 152 but bili within normal limits and no elevation of AST or ALT #Coronary artery disease status post PCI/VICKIE to LCX/OM2 06/08/19; PCI/stent to LAD, D1 and LCX 04/18 -Continue aspirin, statin, Plavix, beta-kaycee -Plavix listed as 150 mg on home med rec, will give 75 we will need to clarify home dosing #DVT ppx: Lovenox subcu Mary Fernandez MD Time spent in the patient's overall evaluation,decision-making process, review of diagnostic data, adjustment of management, discussion with other providers, nursing nursing and ancillary staff involved in patient's care documentation, 60 minutes Charges/Coding Visit Charges Inpatient E&M: 21062 Init Hosp L2
[2022-08-13 18:59] LABS: Amphetamine Urine VISTA NEGATIVE (<1000 ng/mL); Barbiturate Urine VISTA NEGATIVE (< 200 ng/mL); Benzodiazepine Urine VISTA NEGATIVE (< 200 ng/mL); Cocaine Urine VISTA NEGATIVE (< 300 ng/mL); Ecstacy Urine VISTA NEGATIVE (< 500 ng/mL); Methadone Urine VISTA NEGATIVE (< 300 ng/mL); PCP Urine VISTA NEGATIVE (< 25 ng/mL); THC Urine VISTA NEGATIVE (< 50 ng/mL); Vista UDS pH Range 4
[2022-08-13] MEDS: MELATONIN 3 MG TABLET PO (20:29)
[2022-08-13] MEDS: Acetaminophen 500 MG Tablet 1000 MG PO (20:29)
[2022-08-13] MEDS: oxyCODONE 5 MG Tablet PO (20:29)
[2022-08-13 21:33] LABS: LDH 144 U/L (87-241)
[2022-08-13] MEDS: Metoprolol Tartrate 25 MG Tablet PO (21:42)
[2022-08-13] MEDS: Atorvastatin Calcium 80 MG Tablet PO (21:43)
[2022-08-13 23:17] LABS: Erythrocyte Sedimentation Rate 38 mm/hr (0-20)
[2022-08-14 04:00] VITALS: BP 117/52; PULSE 58; RESP 14; TEMP 36.8; O2SAT 93
[2022-08-14] MEDS: 0.9% Normal Saline 1,000 ML 125 ML IV ×2 (04:38→13:09)
[2022-08-14] MEDS: Acetaminophen 500 MG Tablet 1000 MG PO ×2 (04:39→15:03)
[2022-08-14 06:55] LABS: Absolute Lymphocyte Count 2.21 X10^3/uL (0.83-4.51); Absolute Neutrophil Count 7.4 X10^3/uL (2.0-7.7); Basophil# 0.06 X10^3/uL; Basophil% 0.5 % (0-1); Eosinophils% 2.7 % (0-5); Hematocrit 39.2 % (40-54); Hemoglobin 12.3 g/dL (13.0-16.5); Lymphocyte # 2.21 X10^3/ul (0.83-4.51); Lymphocyte % 19.8 % (19-41); Mean Corp Hgb Conc 31.4 g/dL (32-36); Mean Corpuscular Hgb 30.6 pg (27.0-32.0); Mean Corpuscular Volume 97.5 fL (80-94); Mean Platelet Vol. 9.7 fl (6.2-12.0); Monocyte# 0.96 X10^3/uL; Monocyte% 8.6 % (0-10); NRBC Flagged by Analyzer 0 % (0-5); Neutrophil # 7.44 X10^3/uL (2.7-7.7); Neutrophil % 66.5 % (47-70); Platelet Count 243 K/mm3 (150-450); RBC Distribution Width CV 14.5 % (11.6-14.6); RBC Distribution Width SD 52.1 fl (35.1-43.9); Red Blood Count 4.02 M/mm3 (4.6-6.2); White Blood Count 11.2 K/mm3 (4.4-11.0)
[2022-08-14 07:22] LABS: ALB/GLOB Ratio 0.8 RATIO (0.9-2.4); AST(SGOT) 9 U/L (15-37); Alanine Aminotransfer ALT/SGPT 14 U/L (16-61); Albumin, Serum 2.2 g/dL (3.2-5.0); Alkaline Phosphatase 132 U/L (45-117); Anion Gap 4 (5-15); BUN 16 mg/dL (7-18); BUN/Creat Ratio 15.2 RATIO (10-20); Calcium,Total 7.8 mg/dL (8.5-10.1); Chloride 111 mmol/L (98-107); Creatinine, Serum 1.05 mg/dL (0.70-1.30); EST Glomerular Filtration Rate 75 mL/min (>60); Est Glom Filt Rate - Afr Amer 91 mL/min (>60); Estimated Creatinine Clearance 72.71 ml/min; Globulin 2.9 g/dL (2.2-4.2); Glucose 81 mg/dL (74-106); Magnesium 1.9 mg/dL (1.6-2.6); Potassium 4.6 mmol/L (3.5-5.1); Protein, Total 5.1 g/dL (6.4-8.2); Sodium Level 140 mmol/L (136-145)
--- NOTE | 2022-08-14 08:09 | PN.HOSP_ITS ---
Reason for Visit Reason for Visit: Diagnoses Unspecified abdominal pain (08/13/22) Subjective Subjective Feels well. No further abdominal pain. Objective Data Objective Data Vital Signs: Vital Signs Temp Pulse Resp BP Pulse Ox O2 Del Method 36.8 C 58 L 14 117/52 L 93 Room Air 08/14/22 04:00 08/14/22 04:00 08/14/22 04:00 08/14/22 04:00 08/14/22 04:00 08/14/22 04:00 Oxygen Delivery Method Room Air Weight: 87 kg Body Mass Index (BMI) 26.7 Intake & Output: Intake and Output for Last 24 Hours 08/12/22 08/13/22 08/14/22 23:59 23:59 23:59 Intake Total 1000 / 1000 1000 / 1000 Balance 1000 / 1000 1000 / 1000 Lab / Micro Data Result Diagrams: 08/14/22 06:27 08/14/22 06:27 Labs: Laboratory Results - last 24 hr 08/13/22 10:08: WBC 14.1 H, RBC 4.74, Hgb 14.5, Hct 44.9, MCV 94.7 H, MCH 30.6, MCHC 32.3, RDW Std Deviation 51.3 H, RDW Coeff of [place] 14.6, Plt Count 292, MPV 10.0, Immature Gran % (Auto) 3.500 H, Neut % (Auto) 66.4, Lymph % (Auto) 20.4, M rubi % (Auto) 7.3, Eos % (Auto) 2.3, Baso % (Auto) 0.1, Absolute Neuts (auto) 9.3 H, Absolute Lymphs (auto) 2.86, Nucleated RBC % 0 08/13/22 10:08: Sodium 140, Potassium 4.4, Chloride 110 H, Carbon Dioxide 22.0, Anion Gap 8, BUN 20 H, Creatinine 1.25, Estim Creat Clear Calc 61.08, Est GFR (MDRD) Af Amer 74, Est GFR (MDRD) Non-Af 61, BUN/Creatinine Ratio 16.0, Glucose 152 H, Calcium 8.7, Total Bilirubin 0.70, AST 12 L, ALT 17, Alkaline Phosphatase 152 H, Troponin I High Sens 14, Total Protein 6.6, Albumin 2.9 L, Globulin 3.7, Albumin/Globulin Ratio 0.8 L, Lipase 245 08/13/22 10:08: Lactic Acid 2.2 H* 08/13/22 10:08: ESR 38 H 08/13/22 10:08: Lactate Dehydrogenase 144, C-React Prot Ext Range 41.00 H 08/13/22 11:20: Urine Color Yellow, Urine Clarity Clear, Urine pH 5.0, Ur Specific [place] 1.015, Urine Protein 15 H, Urine Glucose (UA) Normal, Urine Ketones Negative, Urine Occult Blood Negative, Urine Nitrite Negative, Urine Bilirubin Negative, Urine Urobilinogen Normal, Ur Leukocyte Esterase 25 H, Urine RBC 0 SEEN, Urine WBC 0 SEEN, Ur Squamous Epith Cells 0 SEEN, Urine Bacteria 0 SEEN, Urine Mucus 0 SEEN 08/13/22 11:20: Urine Opiates Screen POSITIVE H, Urine Methadone Screen NEGATIVE, Ur Barbiturates Screen NEGATIVE, Ur Phencyclidine Scrn NEGATIVE, Ur Amphetamines Screen NEGATIVE, MDMA (Ecstasy) Screen NEGATIVE, U Benzodiazepines Scrn NEGATIVE, Urine Cocaine Screen NEGATIVE, U Cannabinoids Screen NEGATIVE, Ur Drug Screen Comment 08/13/22 15:24: Lactic Acid 1.6 08/14/22 06:27: WBC 11.2 H, RBC 4.02 L, Hgb 12.3 L, Hct 39.2 L, MCV 97.5 H, MCH 30.6, MCHC 31.4 L, RDW Std Deviation 52.1 H, RDW Coeff of [place] 14.5, Plt Count 243, MPV 9.7, Immature Gran % (Auto) 1.900 H, Neut % (Auto) 66.5, Lymph % (Auto) 19.8, [place] % (Auto) 8.6, Eos % (Auto) 2.7, Baso % (Auto) 0.5, Absolute Neuts (auto) 7.4, Absolute Lymphs (auto) 2.21, Nucleated RBC % 0 08/14/22 06:27: Sodium 140, Potassium 4.6, Chloride 111 H, Carbon Dioxide 25.0, Anion Gap 4 L, BUN 16, Creatinine 1.05, Estim Creat Clear Calc 72.71, Est GFR (MDRD) Af Amer 91, Est GFR (MDRD) Non-Af 75, BUN/Creatinine Ratio 15.2, Glucose 81, Calcium 7.8 L, Magnesium 1.9, Total Bilirubin 1.10 H, AST 9 L, ALT 14 L, Alkaline Phosphatase 132 H, Total Protein 5.1 L, Albumin 2.2 L, Globulin 2.9, Albumin/Globulin Ratio 0.8 L Radiography Diagnostic Testing: Radiology Impression Chest/Abdomen/Pelvis CTA 08/13/22 10:42 IMPRESSION: Peripheral calcifications in the thoracic and abdominal aorta with mural thrombus, but no evidence of dissection. There is no significant stenosis. There is a focal aneurysm in the aorta just prior to the bifurcation which has a patent stent graft within it. Chronic interstitial changes in both lung linder with superimposed interstitial edema and honeycombing around the periphery of both lung linder. No suspicious solid abnormality. Tiny gallstones are present without CT evidence of acute cholecystitis Small bowel ileus Colonic diverticulosis No free intraperitoneal fluid, air, or suspicious adenopathy Degenerative bony changes Electronically Signed: Jonas Foster MD at 11:20 EDT , Gallbladder Ultrasound 08/13/22 13:03 IMPRESSION: No suspicious sonographic findings, study limited due to overlying bowel gas Electronically Signed: Jonas Foster MD at 15:13 EDT , Rhythm Strip Rhythm Strip: Sinus bradycardia Rate: 53 Ectopy: PVC(s) Physical Exam Const alert Resp normal respiratory effort and no retractions Cardio regular rate, regular rhythm, S1 normal heart sound and S2 normal heart sound GI normal to inspection, nondistended, normoactive bowel sounds, soft to palpation, non-tender and non-distended Assessment & Plan Assessment/Plan (1) Intractable abdominal pain: PLAN: Unclear etiology, seen by GI who suspects ischemic colitis Unlikely to be inflammatory bowel disease such as Crohn's disease or ulcerative colitis. Patient may have had some transient ileus or small bowel obstruction but that was not visualized on imaging. Data: * CTA chest abdomen pelvis demonstrated peripheral calcifications and thoracic and abdominal aorta with mural thrombus and no evidence of dissection with no significant stenosis. Focal aneurysm in the aorta just prior to the bifurcation which has a patent stent graft within it. Chronic interstitial changes in both lung linder with superimposed interstitial edema and honeycombing around the periphery of both lungs. Tiny gallstones on CT without acute cholecystitis, did report small bowel ileus and colonic diverticulosis. * Right upper quadrant US with no suspicious sonographic findings * Lactic acid 2.2 to 1.6 * Alk phos 152 but bili within normal limits and no elevation of AST or ALT Plan: * Les with Dr. Sarabia, no plans for any endoscopy during this hospitalization. Okay to advance diet. * outpt capsule endoscopy PLAN: Plan Chronic conditions: * Coronary artery disease status post PCI/VICKIE to LCX/OM2 06/08/19; PCI/stent to LAD, D1 and LCX 09/16-Continue aspirin, statin, Plavix, [id number]-Gypuoh li sted as 150 mg on home med rec, will give 75 we will need to clarify home dosing * AAA: s/p stent. current measurement 4.38cm (3.8 on 12/31/21). Mural thrombus notes * HTN: stable continue lisinopril #DVT ppx: Lovenox subcu Charges/Coding Visit Charges Inpatient E&M: 74154 Subs Hosp L2
[2022-08-14] MEDS: Clopidogrel Bisulfate 75 MG Tablet PO (08:23)
[2022-08-14] MEDS: Aspirin E.C. 81 MG Tablet PO (08:23)
[2022-08-14] MEDS: Enoxaparin 40 MG/0.4 ML Syringe SC (08:28)
[2022-08-14] MEDS: Pantoprazole Sodium 40 MG Tablet PO (08:33)
[2022-08-14 09:00] VITALS: BP 132/62; PULSE 52; RESP 18; TEMP 36.6; O2SAT 98
[2022-08-14 11:24] VITALS: BP 154/50; PULSE 62
[2022-08-14] MEDS: Metoprolol Tartrate 25 MG Tablet PO (11:24)
[2022-08-14 15:00] VITALS: BP 142/55; PULSE 62; RESP 18; TEMP 36.7; O2SAT 100
[2022-08-14 15:22] VITALS: O2SAT 96
--- NOTE | 2022-08-14 15:52 | CASEMGMT ---
GERONIMO CM in to discuss JIMÉNEZ form with patient. RN CM explained JIMÉNEZ form, patient voiced understanding. Pt signed form and filed in chart. Pt provided with a copy of signed JIMÉNEZ form. Patient had no further questions or concerns at this time.
--- NOTE | 2022-08-14 16:44 | DCINST_ITS ---
Discharge Instructions Diet Discharge Diet: Low fat / Low cholesterol Dressing / Incision Call your doctor if you observe: - (worsening abdominal pain) Follow Up Care Test Results: Test results from this visit will be discussed in further detail at your follow- up appointment, if applicable. Discharge Plan Admission Admit Date/Time: 08/13/22 18:39 Primary Reason for Your Visit: abdominal pain Attending Provider: Scotty Mcdaniel Primary Care Provider: Annika Villasenor Consulting Providers: Mary Fernandez Instructions Additional Instructions / Restrictions: Your work-up was negative for acute cholecystitis (infection of the gallbladder). There is obstruction or acute pathology of the aorta. Is possibly that you could have poor blood flow to the abdomen and eating a larger meal trigger your symptoms. Your CT did show an ileus which is a slowing of the GI tract. Please return to the ER if you develop fever, worsening abdominal pain or black/blood in your stool. Take your regular medicines tonight. Discharge Orders/Prescriptions Prescriptions: New dicyclomine 20 mg tablet 20 mg PO TID PRN (Reason: abdominal pain) Qty: 30 0RF Continued clopidogrel [Plavix] 75 mg tablet 150 mg PO QDAY atorvastatin 80 mg tablet 80 mg PO QHS nitroglycerin 0.4 mg tablet, sublingual 0.4 mg SUBLINGUAL Q5-15M PRN (Reason: Pain, Mild) Rx Instructions: until response; do not exceed 3 doses per episode lisinopril 5 mg tablet 5 mg PO QHS aspirin 81 MG tablet 81 mg PO DAILY@0800 pantoprazole 40 mg tablet,delayed release (DR/EC) 40 mg PO DAILY hydrocodone-acetaminophen 5-325 mg tablet 1 tab PO Q8H PRN (Reason: pain) 3 Days Qty: 9 0RF ondansetron 4 mg tablet,disintegrating 4 mg PO Q8H PRN (Reason: nausea and vomiting) Qty: 10 0RF metoprolol tartrate 25 mg tablet 25 mg PO BID Qty: 180 3RF Referrals / Follow Up: Annika Villasenor MD [Primary Care Provider] - Within 2 Weeks Fidel Enamorado MD [Med Staff - Active Staff] - 10-14 Days if not better Friend,DO Markel [Med Staff - Active Staff] - As soon as possible Disposition Disposition (needs filled in before D/C Order can be placed): Home, Self Care
--- NOTE | 2022-08-14 16:48 | DS.PCM_ITS ---
Providers Date of Admission: 08/13/22 Primary Care Physician: Dr. Annika Villasenor MD Reason For Visit: INTRACTABLE ABP Diagnosis Discharge Diagnosis (1) Intractable abdominal pain: Status: Acute Code(s): R10.9 - Unspecified abdominal pain Plan: Unclear etiology, seen by GI who suspects ischemic colitis, though CT showed small bowel ileus. Unlikely to be inflammatory bowel disease such as Crohn's disease or ulcerative colitis. Patient may have had some transient ileus or small bowel obstruction but that was not visualized on imaging. Data: * CTA chest abdomen pelvis demonstrated peripheral calcifications and thoracic and abdominal aorta with mural thrombus and no evidence of dissection with no significant stenosis. Focal aneurysm in the aorta just prior to the bifurcation which has a patent stent graft within it. Chronic interstitial changes in both lung linder with superimposed interstitial edema and honeycombing around the periphery of both lungs. Tiny gallstones on CT without acute cholecystitis, did report small bowel ileus and colonic diverticulosis. * Right upper quadrant US with no suspicious sonographic findings * Lactic acid 2.2 to 1.6 * Alk phos 152 but bili within normal limits and no elevation of AST or ALT Plan: * Discussed with Dr. Sarabia, no plans for any endoscopy during this hospitalization. Okay to advance diet. * outpt capsule endoscopy * Patient tolerated diet today. Will discharge home. Plan Chronic conditions: * Coronary artery disease status post PCI/VICKIE to LCX/OM2 06/08/19; PCI/stent to LAD, D1 and LCX 09/16-Continue aspirin, statin, Plavix, [id number] listed as 150 mg on home med rec, will give 75 we will need to clarify home dosing * AAA: s/p stent. current measurement 4.38cm (3.8 on 12/31/21). Mural thrombus notes * HTN: stable continue lisinopril #DVT ppx: Lovenox subcu Medications at Discharge Home Medications clopidogrel 75 mg tablet (Plavix) 150 mg PO QDAY 07/24/17 aspirin 81 mg tablet,delayed release 81 mg PO DAILY@0800 01/30/19 atorvastatin 80 mg tablet 80 mg PO QHS 02/16/19 metoprolol tartrate 25 mg tablet 25 mg PO BID #180 tabs 02/25/19 lisinopril 5 mg tablet 5 mg PO QHS blood pressure 08/08/19 nitroglycerin 0.4 mg sublingual tablet 0.4 mg sublingual Q5-15M PRN Pain, Mild 08/08/19 pantoprazole 40 mg tablet,delayed release 40 mg PO DAILY GERD 03/31/21 hydrocodone-acetaminophen 5-325mg 5mg-325mg 1 tab PO Q8H PRN pain 3 days #9 tabs 01/18/22 ondansetron 4 mg disintegrating tablet 4 mg PO Q8H PRN nausea and vomiting #10 tabs 01/18/22 dicyclomine 20 mg tablet 20 mg PO TID PRN abdominal pain #30 tabs 08/13/22 Hospital Course Operations None Procedures None Summary of Care Provided Minutes Spent on Discharge: 28 Weight / BMI Weight Weight: 87 kg Body Mass Index (BMI) 26.7 ABG / Lab / Microbiology Data Result Diagrams: 08/14/22 06:27 08/14/22 06:27 Laboratory: Laboratory Results - last 24 hr 08/13/22 10:08: ESR 38 H 08/13/22 10:08: Lactate Dehydrogenase 144, C-React Prot Ext Range 41.00 H 08/13/22 11:20: Urine Opiates Screen POSITIVE H, Urine Methadone Screen NEGAT KENISHA, Ur Barbiturates Screen NEGATIVE, Ur Phencyclidine Scrn NEGATIVE, Ur Amphetamines Screen NEGATIVE, MDMA (Ecstasy) Screen NEGATIVE, U Benzodiazepines Scrn NEGATIVE, Urine Cocaine Screen NEGATIVE, U Cannabinoids Screen NEGATIVE, Ur Drug Screen Comment 08/14/22 06:27: WBC 11.2 H, RBC 4.02 L, Hgb 12.3 L, Hct 39.2 L, MCV 97.5 H, MCH 30.6, MCHC 31.4 L, RDW Std Deviation 52.1 H, RDW Coeff of [place] 14.5, Plt Count 2 43, MPV 9.7, Immature Gran % (Auto) 1.900 H, Neut % (Auto) 66.5, Lymph % (Auto) 19.8, [place] % (Auto) 8.6, Eos % (Auto) 2.7, Baso % (Auto) 0.5, Absolute Neuts (auto) 7.4, Absolute Lymphs (auto) 2.21, Nucleated RBC % 0 08/14/22 06:27: Sodium 140, Potassium 4.6, Chloride 111 H, Carbon Dioxide 25.0, Anion Gap 4 L, BUN 16, Creatinine 1.05, Estim Creat Clear Calc 72.71, Est GFR (MDRD) Af Amer 91, Est GFR (MDRD) Non-Af 75, BUN/Creatinine Ratio 15.2, Glucose 81, Calcium 7.8 L, Magnesium 1.9, Total Bilirubin 1.10 H, AST 9 L, ALT 14 L, Alkaline Phosphatase 132 H, Total Protein 5.1 L, Albumin 2.2 L, Globulin 2.9, Albumin/Globulin Ratio 0.8 L D/C Instructions Discharge Diet: Low fat / Low cholesterol Call your doctor if you observe: - (worsening abdominal pain) Meaningful Use Info Meaningful Use Diagnoses (Choose all that apply): None applicable Discharge Plan Admission Admit Date/Time: 08/13/22 18:39 Primary Reason for Your Visit: abdominal pain Attending Provider: Scotty Mcdaniel Primary Care Provider: Annika Villasenor Consulting Providers: Mary Fernandez Instructions Additional Instructions / Restrictions: Your work-up was negative for acute cholecystitis (infection of the gallbladder). There is obstruction or acute pathology of the aorta. Is possibly that you could have poor blood flow to the abdomen and eating a larger meal trigger your symptoms. Your CT did show an ileus which is a slowing of the GI tract. Please return to the ER if you develop fever, worsening abdominal pain or black/blood in your stool. Take your regular medicines tonight. Discharge Orders/Prescriptions Prescriptions: New dicyclomine 20 mg tablet 20 mg PO TID PRN (Reason: abdominal pain) Qty: 30 0RF Continued clopidogrel [Plavix] 75 mg tablet 150 mg PO QDAY atorvastatin 80 mg tablet 80 mg PO QHS nitroglycerin 0.4 mg tablet, sublingual 0.4 mg SUBLINGUAL Q5-15M PRN (Reason: Pain, Mild) Rx Instructions: until response; do not exceed 3 doses per episode lisinopril 5 mg tablet 5 mg PO QHS aspirin 81 MG tablet 81 mg PO DAILY@0800 pantoprazole 40 mg tablet,delayed release (DR/EC) 40 mg PO DAILY hydrocodone-acetaminophen 5-325 mg tablet 1 tab PO Q8H PRN (Reason: pain) 3 Days Qty: 9 0RF ondansetron 4 mg tablet,disintegrating 4 mg PO Q8H PRN (Reason: nausea and vomiting) Qty: 10 0RF metoprolol tartrate 25 mg tablet 25 mg PO BID Qty: 180 3RF Referrals / Follow Up: Annika Villasenor MD [Primary Care Provider] - Within 2 Weeks Fidel Enamorado MD [Med Staff - Active Staff] - 10-14 Days if not better Friend,DO Markel [Med Staff - Active Staff] - As soon as possible Disposition Disposition (needs filled in before D/C Order can be placed): Home, Self Care Charges/Coding Visit Charges Inpatient E&M: 33681 Disch Hosp
--- NOTE | 2022-08-14 16:48 | NURSING ---
Pt and daughter called this nurse in states pt would like to go home if there is nothing further that is going to be done with him. Explained to pt on advancing his diet and making sure he is able to tolerate without pain. Pt did have turkey, mashed potatoes and noodles for lunch. States he does not have any abdominal pain and is wanting to go home. Notified Dr. Mcdaniel. Updated Dr. Mcdaniel pt tolerated 1 solid meal. Pt will be discharged as wanted. Notified pt and daughter as soon as dc instructions are complete this nurse will review with pt and he can leave. Pt verbalized understanding.
[2022-08-15 15:09] LABS: Albumin 2.4 g/dL (2.9-4.4); Alpha-1-Globulins 0.3 g/dL (0.0-0.4); Alpha-2-Globulins 0.6 g/dL (0.4-1.0); Cytoplasmic Ab (C-ANCA) <1:20 titer (Neg:<1:20); Gamma Globulin 0.8 g/dL (0.4-1.8); Immunoglobulin A 414 mg/dL (61-437); Immunoglobulin G 888 mg/dL (603-1613); Immunoglobulin M 65 mg/dL (20-172)
[2022-08-15 16:09] LABS: Anti-Centromere B Ab <0.2 AI (0.0-0.9); Anti-Chromatin <0.2 AI (0.0-0.9); Anti-Jo <0.2 AI (0.0-0.9); Anti-Scleroderma-70 AB <0.2 AI (0.0-0.9); RNP Ab <0.2 AI (0.0-0.9); SJOGREN'S Anti-SS-A test < 0.2 AI (0.0-0.9); SJOGREN'S Anti-SS-B test < 0.2 AI (0.0-0.9); Smith Ab <0.2 AI (0.0-0.9)
[2022-08-15 17:01] LABS: IMMUNOFIXATION RESULT,S Comment: (.); Perinuclear Ab (P-ANCA) <1:20 titer (Neg:<1:20)
[2022-08-15 17:06] LABS: Anti-dsDNA Ab <1 IU/mL (0-9)
== END 2022-08-14 17:25 | disposition home or self-care (01) ==
LOC: ED 17:37 → MS3 19:01
PROVIDERS: Internal Medicine Gastroenterology; Admitting Provider Internal Medicine; Emergency Provider Emergency Medicine; PCP Family Medicine
DX: R10.9 Unspecified abdominal pain (principal); K55.9 Vascular disorder of intestine, unspecified; I73.9 Peripheral vascular disease, unspecified; I71.40 Abdominal aortic aneurysm, without rupture, unspecified; I25.10 Atherosclerotic heart disease of native coronary artery without angina pectoris; I10 Essential (primary) hypertension; Z95.5 Presence of coronary angioplasty implant and graft; I25.5 Ischemic cardiomyopathy; R00.1 Bradycardia, unspecified; K92.2 Gastrointestinal hemorrhage, unspecified; F17.210 Nicotine dependence, cigarettes, uncomplicated; E78.5 Hyperlipidemia, unspecified; E87.20 Acidosis, unspecified; Z79.02 Long term (current) use of antithrombotics/antiplatelets; Z63.79 Other stressful life events affecting family and household; Z79.899 Other long term (current) drug therapy; Z79.82 Long term (current) use of aspirin; Z95.1 Presence of aortocoronary bypass graft; I25.2 Old myocardial infarction; R11.2 Nausea with vomiting, unspecified
CPT/HCPCS: 36415; 71275; 74174; 76705; 80053; 80307; 81001; 82784; 83605; 83615; 83690; 83735; 84165; 84484; 85025; 85652; 86140; 86225; 86235; 86256; 86334; 93005; 96361; 96372; 96374; 96375; 96376; 99221; 99284; 99406; J7030; Q9967; A4216; G0378; J2405

== ENCOUNTER → 2022-09-30 | Outpatient (CLI) | payer MEDICARE, SELFPAY ==
[2019-08-08 14:05] VITALS: BMI 27.6
[2022-10-02 20:07] LABS: Endomysial Antibody IgA Negative (Negative); Immunoglobulin A 614 mg/dL (61-437); QNTFERON TB Mitogen Value > 10.00 IU/mL (.); QNTFERON TB Nil Value 0.01 IU/mL (.); QNTFERON TB1+ Ag Value 0.03 IU/mL (.); QNTFERON TB2+ Ag Value 0.03 IU/mL (.); QNTIFERON TB Positive Criteria Negative (Negative); t-Transglutaminase IgA <2 U/mL (0-3)
== END | disposition home or self-care (01) ==
PROVIDERS: PCP Family Medicine; Referring Provider Internal Medicine Gastroenterology; Visit Provider Internal Medicine Gastroenterology
DX: K55.9 Vascular disorder of intestine, unspecified (principal)
CPT/HCPCS: 36415; 82784; 83516; 86255; 86480

== ENCOUNTER 2023-04-22 08:20 | Emergency (ER) | payer MEDICARE, SELFPAY ==
[2019-08-08 14:05] VITALS: BMI 27.6
[2023-04-22 08:21] VITALS: PULSE 62; RESP 14; TEMP 36.4; O2SAT 100; BMI 26.6
[2023-04-22 08:23] VITALS: BP 205/72
--- NOTE | 2023-04-22 08:48 | CT_ITS ---
STUDY: CTA OF THE ABDOMEN AND PELVIS REASON FOR EXAM: Male, 67 years old. abdominal pain RADIATION DOSAGE (If Supplied By Facility): CTDIvol = ( 34.19 ) mGy, DLP = ( 1056.15 ) mGycm TECHNIQUE: Axial CT angiography multi-detector data acquisition was obtained from the to the following intravenous administration of IV 100mL Isovue-370. Axial images and MIP images were reconstructed from the axial data set. Post-processing of the angiographic images was performed, with multiplanar reformation and 3D reconstruction. Individualized dose optimization techniques were used for this CT. TECHNICAL QUALITY: Good COMPARISON: None. Descriptors of Narrowing: None (0%) Mild (< 50%) Moderate (50-70%) Severe (70-90%) Subtotal/Total Occlusion (90-100%) Non-Evaluable (technically non-diagnostic FINDINGS: Abdominal aorta: Large 5.19 cm infrarenal abdominal aortic aneurysm. Diffuse atherosclerotic plaque throughout the abdominal aorta. A vascular stent of the abdominal aorta is present just beneath the renal arteries covering portions of the aneurysm. Celiac and superior mesenteric arteries: There is mild diffuse narrowing. Inferior mesenteric artery: No demonstrated narrowing. Right renal artery(arteries): There is mild origin narrowing. Left renal artery(arteries): No demonstrated narrowing. Right common iliac artery: There is mild diffuse narrowing. Several vascular stents are present in the proximal to middle one third aspect of the right iliac artery. Right external iliac artery: There is mild diffuse narrowing. Right internal iliac artery: Occluded Left common iliac artery: There is mild diffuse narrowing. Several vascular stents are present in the distal aspect of the left iliac artery Left external iliac artery: There is moderate diffuse narrowing. Several vascular stents are present Left internal iliac artery: Occluded NONVASCULAR FINDINGS: There are chronic interstitial fibrotic changes of the lung bases. Tiny loculated pleural effusion noted at the medial aspect of the right lung base. Normal liver. A single tiny gallstone is present. No inflammatory changes are present. Normal spleen. Normal pancreas. Normal bilateral adrenal glands. There is moderate cortical atrophy of the right kidney, consistent with chronic medical renal disease. There is moderate cortical atrophy of the left kidney, consistent with chronic medical renal disease. Normal visualized stomach. Normal small intestine. There are multiple colonic diverticula consistent with diverticulosis. The appendix is visualized and appears normal. Normal inferior vena cava. Normal retroperitoneum. Normal urinary bladder. Normal abdominal wall. Normal osseous structures. CT/CTA Abd/Pelvis W/WO Contrast IMPRESSION: 1. 5.19 cm abdominal aortic aneurysm with endovascular stent across a portion of the aneurysm sac 2. Chronically occluded bilateral internal iliac arteries Electronically Signed: Dante Roberts MD at 10:19 EST ,
--- NOTE | 2023-04-22 08:49 | ED.VIS.GI ---
HPI HPI - GI History of Present Illness Chief Complaint: Abd Pain Informant: patient and family Narrative Narrative: Presents here with family sudden pain across his abdomen at 3 AM awakening from sleep. Pain is persistent. No nausea or vomiting. No diarrhea. Last bowel movement yesterday evening was normal. Has daily bowel movements. History of AAA repair years ago. History of coronary disease with bypass on aspirin and Plavix. Denies any other abdominal surgeries. States 6 months ago had some similar with stating something intestinal inflammation. Denies history of pancreatitis, unclear if diverticulitis. Allergies to sulfa. Prior similar symptoms: Yes PFSH PFSH Medical History Arthritis Atherosclerotic heart disease of [place] coronary artery without angina pectoris CAD in [place] artery Cardiomyopathy Essential hypertension Heart disease History of pneumonia HTN (hypertension) Hyperlipidemia Hypertension Ischemic colitis NSTEMI (non-ST elevated myocardial infarction) Old myocardial infarction PAD (peripheral artery disease) Personal history of colonic polyps Presence of stent in coronary artery (~06/08/19) Home Medications clopidogrel 75 mg tablet (Plavix) 150 mg PO QDAY 07/24/17 [History Last Taken Unknown] aspirin 81 mg tablet,delayed release 81 mg PO DAILY@0800 01/30/19 [History Last Taken Unknown] atorvastatin 80 mg tablet 80 mg PO QHS 02/16/19 [History Last Taken Unknown] metoprolol tartrate 25 mg tablet 25 mg PO BID #180 tabs 02/25/19 [Rx Last Taken Unknown] lisinopril 5 mg tablet 5 mg PO QHS blood pressure 08/08/19 [History Last Taken Unknown] nitroglycerin 0.4 mg sublingual tablet 0.4 mg sublingual Q5-15M PRN Pain, Mild 08/08/19 [History Last Taken Unknown] pantoprazole 40 mg tablet,delayed release 40 mg PO DAILY GERD 03/31/21 [History Last Taken Unknown] hydrocodone-acetaminophen 5-325mg 5mg-325mg 1 tab PO Q8H PRN pain 3 days #9 tabs 01/18/22 [Rx Last Taken Unknown] ondansetron 4 mg disintegrating tablet 4 mg PO Q8H PRN nausea and vomiting #10 tabs 01/18/22 [Rx Last Taken Unknown] dicyclomine 20 mg tablet 20 mg PO TID PRN abdominal pain #30 tabs 08/13/22 [Rx Last Taken Unknown] Allergy/AdvReac Type Severity Reaction Status Date / Time Sulfa (Sulfonamide Allergy Unknown Verified 04/22/23 08:22 Antibiotics) Family History Father CAD (coronary artery disease) Mother Cancer CAD (coronary artery disease) Surgical History Abdominal aortic aneurysm without rupture History of [id number] bypass History of coronary artery bypass surgery (~2000) History of open heart surgery Presence of coronary angioplasty implant and graft (~06/08/19) S/P PTCA (percutaneous transluminal coronary angioplasty) Social History Smoking Status: Current some day smoker tobacco type: cigarettes alcohol intake: current alcohol intake frequency: a few times a week Alcohol type: beer and hard liquor substance use type: does not use ROS ROS ED Constitutional Constitutional ED: Denies chills, fever(s) or sweats Eyes Eyes: Denies change in vision ENT ENT ED: Denies dysphagia or sore throat Cardiovascular Cardiovascular: Denies chest pain, leg edema, palpitations or racing heartbeat Respiratory/Chest Respiratory/Chest: Denies cough, dyspnea or dyspnea on exertion Gastrointestinal Gastrointestinal: Reports abdominal pain; Denies diarrhea, nausea or vomiting Genitourinary Genitourinary ED: Denies dysuria, hematuria or urinary frequency Musculoskeletal Musculoskeletal: Denies back pain, extremity pain or neck pain Integumentary Denies rash or wounds Neurologic Neurologic: Denies headache(s), paresthesias or weakness EXAM Physical Exam Const Vital Signs: 04/22/23 08:21 04/22/23 08:23 Temperature 97.5 F L Temperature Source Temporal Pulse Rate 62 Respiratory Rate 14 Blood Pressure 205/72 H Blood Pressure Mean 116 Pulse Ox 100 Oxygen Delivery Method Room Air Positive well nourished and well developed Constitutional Narrative: Uncomfortable, nontoxic General Appearance ED: well developed HEENT Reports moist mucous membranes normocephalic and atraumatic Eyes PERRL, EOMs intact bilaterally and conjunctivae normal General Eye ED: Yes normal appearance of both eyes Neck no lymphadenopathy and supple General: Negative for tenderness Chest Wall Chest: Negative for tenderness Resp normal respiratory effort and normal air movement Effort and Inspection: symmetric chest movement; Negative for respiratory distress Cardio regular rate, regular rhythm and no murmurs Peripheral Pulses: pulses 2+ throughout GI normal to inspection, nondistended, normoactive bowel sounds GI Narrative: Midline abdominal scar, generalized tenderness across mid abdomen . No guarding or rebound. Palpation: Negative for guarding or rebound tenderness present Back/Spine no CVA tenderness and no thoracic nor lumbar tenderness Extremity normal to inspection General Extremety ED: Negative for edema or tenderness General Extremity: Negative for edema Neuro oriented x3 and no sensory deficits noted Sensorium / Orientation: awake and alert Skin no rashes or lesions noted and no wounds MDM MDM MDM Narrative Medical decision making narrative: Interventions / MDM: Differential diagnosis: Abdominal pain, ischemic colitis, abdominal aneurysm Diagnosis considered but do not suspect: Ruptured aneurysm or stent leaking, however not seen on imaging studies. My EKG interpretation: N/A Imaging independently reviewed and interpreted by myself: CT angio gram of abdomen pelvis: Abdominal aneurysm 5.1 cm, stents are patent in the iliacs. No inflammatory findings no ruptures. This also read by radiology. External documents reviewed: Reviewed his ER visit and inpatient records from July when he was admitted for concerns for ischemic colitis. Had elevated lactic acidosis. He had a stable proximal aneurysm with a stable mural thrombus. He was seen by GI. Recommended outpatient capsule endoscopy which was performed in August, there was concerning proximal small bowel inflammatory disease and work was initiated for IBD. He followed up with GI the following month, symptom-free, apparently cut back on alcohol and cigarettes. Cut back on NSAIDs. He was following cardiovascular for his aneurysm and was deferred to them for continued management. Test considered but not ordered:N/A ED course: Patient sudden pain across mid abdomen, history of AAA repair. Looks uncomfortable. Blood pressure elevated likely pain induced. IV established pain and nausea medicines. With AAA repair, CT angiogram ordered for further evaluation along with lactic acid. 0910: Reevaluation after review of his records, pain with no improvement. No CT performed at this time yet. He was reordered for morphine 4 mg. Lactic acid did return at 2.9. 0940: Return from CT pending results. White count of 14.99. Creatinine up to 1.5, GFR 48. He is being given IV fluids. Lipase normal at 49. Per nursing pain still significant, IV Dilaudid is ordered. 1014: Patient reevaluated more comfortable at this time. Abdomen soft. Awaiting CT scan results. 1030: CT scan with abdominal aneurysm now 5.19 cm up from 4.386 months ago. There is no rupture or leakage from the stent. Patient pain now controlled is not more comfortable. Had lactic acidosis. From last ED visit, patient pain did return requiring admission. He will be monitored, will check lactic acid again for reevaluation. He has been given a liter of fluids. 1200: Lactic acid improved to 1.5. Pain has not returned. Abdomen soft. Patient be p.o. challenge. Will discuss with his GI doctor. Daughter present states he does follow [facility] vascular surgeon with one locally in the [facility]. 1230: I did speak with Dr. Sarabia, discussed patient's history agrees with withholding NSAIDs and history of ischemic colitis symptoms which is improving. Family reported saw rheumatology yesterday with injection unclear of what was given. Currently remains symptom-free is tolerating oral fluids with no return of symptoms. He will follow-up with GI as an outpatient. I will follow-up with the vascular surgeon as an outpatient. Strict return precautions. All questions were answered. Re-evaluation: stable Disposition discussed with patient/family/significant other: Patient and daughter Case discussed with consulting clinician: N/A This note was generated with iLive dictation software. It may contain incorrect words, spelling, and punctuation that were not noted in checking the note before signing. Lab Data Attestation: I reviewed the patient's lab results. Labs: Laboratory Results - last 24 hr 04/22/23 04/22/23 08:33 10:55 WBC 14.9 H RBC 4.98 Hgb 15.2 Hct 46.9 MCV 94.2 H MCH 30.5 MCHC 32.4 RDW Std Deviation 50.9 H RDW Coeff of [place] 14.8 H Plt Count 362 MPV 10.0 Immature Gran % (Auto) 1.200 H Neut % (Auto) 78.4 H Lymph % (Auto) 15.4 L [place] % (Auto) 3.6 Eos % (Auto) 0.6 Baso % (Auto) 0.8 Absolute Neuts (auto) 11.7 H Absolute Lymphs (auto) 2.29 Nucleated RBC % 0 Sodium 137 Potassium 4.2 Chloride 111 H Carbon Dioxide 21.0 Anion Gap 5 BUN 22 H Creatinine 1.53 H Estim Creat Clear Calc 48.38 Est GFR (MDRD) Af Amer 59 L Est GFR (MDRD) Non-Af 48 L BUN/Creatinine Ratio 14.4 Glucose 149 H Lactic Acid 2.9 H* 1.5 Calcium 9.2 Total Bilirubin 0.80 Direct Bilirubin 0.28 AST 16 ALT 16 Alkaline Phosphatase 198 H Total Protein 7.7 Albumin 3.4 Globulin 4.3 H Lipase 49 Radiography Diagnostic Testing: Clinical Impression(s) from Imaging Studies Abdomen/Pelvis CTA 04/22/23 08:48 IMPRESSION: 1. 5.19 cm abdominal aortic aneurysm with endovascular stent across a portion of the aneurysm sac 2. Chronically occluded bilateral internal iliac arteries Electronically Signed: Dante Roberts MD at 10:19 EST Reading Location ID and State: [facility] / [place] , Service support , Discharge Plan Triage Chief Complaint: Abd Pain ED Provider: Duc Monroy Dx/Rx/DC Orders Clinical Impression: Mild renal insufficiency, Abdominal aortic aneurysm (AAA) 3.0 cm to 5.5 cm in diameter in male, Abdominal pain, Lactic acidosis Instructions: Abdominal Pain, ED Renal Insufficiency, Abdominal Aortic Aneurysm Stable Prescriptions: No Action clopidogrel [Plavix] 75 mg tablet 150 mg PO QDAY atorvastatin 80 mg tablet 80 mg PO QHS nitroglycerin 0.4 mg tablet, sublingual 0.4 mg SUBLINGUAL Q5-15M PRN (Reason: Pain, Mild) Rx Instructions: until response; do not exceed 3 doses per episode lisinopril 5 mg tablet 5 mg PO QHS aspirin 81 MG tablet 81 mg PO DAILY@0800 pantoprazole 40 mg tablet,delayed release (DR/EC) 40 mg PO DAILY hydrocodone-acetaminophen 5-325 mg tablet 1 tab PO Q8H PRN (Reason: pain) 3 Days Qty: 9 0RF ondansetron 4 mg tablet,disintegrating 4 mg PO Q8H PRN (Reason: nausea and vomiting) Qty: 10 0RF dicyclomine 20 mg tablet 20 mg PO TID PRN (Reason: abdominal pain) Qty: 30 0RF metoprolol tartrate 25 mg tablet 25 mg PO BID Qty: 180 3RF Primary Care Provider: Annika Villasenor Referrals: Annika Villasenor MD [Primary Care Provider] - 5-7 Days Markel Sarabia DO [Med Staff - Active Staff] - 1-2 Weeks Activity Restrictions/Additional Instructions: Your CT scan notes abdominal aneurysm increased to 5.1 cm up from 4.3. Your stent is in place, there is no rupture or leak from the stent. You will need to follow-up with your vascular doctor through [facility] for outpatient evaluation. Here labs notes lactic acidosis improved, if history of concerning ischemic colitis. There is no thrombus on the CT. Your symptoms improved in the ED and your lactic acid improved. Avoid nonsteroidal anti-inflammatory medications. Discussed with Dr. Sarabia in the ED. Follow-up with him. Creatinine 1.5, you are given fluids in the ED. Continue oral fluids for hydration at home. Follow-up with your doctor for recheck labs. Return to ED for reevaluation if symptoms return or worsens. Disposition Disposition: Home, Self Care
[2023-04-22] MEDS: Ondansetron 4 MG/2 ML Vial IV (08:53)
[2023-04-22] MEDS: Morphine 4 MG/ML Syringe IV ×2 (08:53→09:16)
[2023-04-22] MEDS: 0.9% Normal Saline (1000mL) 1,000 ML 125 ML IV (08:59)
[2023-04-22 09:00] LABS: Absolute Lymphocyte Count 2.29 X10^3/uL (0.83-4.51); Absolute Neutrophil Count 11.7 X10^3/uL (2.0-7.7); Basophil# 0.12 X10^3/uL; Basophil% 0.8 % (0-1); Eosinophil# 0.09 X10^3/uL; Eosinophils% 0.6 % (0-5); Hematocrit 46.9 % (40-54); Hemoglobin 15.2 g/dL (13.0-16.5); Lymphocyte # 2.29 X10^3/ul (0.83-4.51); Lymphocyte % 15.4 % (19-41); Mean Corp Hgb Conc 32.4 g/dL (32-36); Mean Corpuscular Hgb 30.5 pg (27.0-32.0); Mean Corpuscular Volume 94.2 fL (80-94); Monocyte# 0.53 X10^3/uL; Monocyte% 3.6 % (0-10); NRBC Flagged by Analyzer 0 % (0-5); Neutrophil % 78.4 % (47-70); Platelet Count 362 K/mm3 (150-450); RBC Distribution Width CV 14.8 % (11.6-14.6); RBC Distribution Width SD 50.9 fl (35.1-43.9); Red Blood Count 4.98 M/mm3 (4.6-6.2); White Blood Count 14.9 K/mm3 (4.4-11.0)
[2023-04-22 09:12] LABS: AST(SGOT) 16 U/L (15-37); Alanine Aminotransfer ALT/SGPT 16 U/L (16-61); Albumin, Serum 3.4 g/dL (3.2-5.0); Alkaline Phosphatase 198 U/L (45-117); Anion Gap 5 (5-15); BUN 22 mg/dL (7-18); BUN/Creat Ratio 14.4 RATIO (10-20); Bilirubin, Direct 0.28 mg/dL (0.00-0.30); Calcium,Total 9.2 mg/dL (8.5-10.1); Chloride 111 mmol/L (98-107); Creatinine, Serum 1.53 mg/dL (0.70-1.30); EST Glomerular Filtration Rate 48 mL/min (>60); Est Glom Filt Rate - Afr Amer 59 mL/min (>60); Estimated Creatinine Clearance 48.38 ml/min; Globulin 4.3 g/dL (2.2-4.2); Glucose 149 mg/dL (74-106); Lipase 49 U/L (13-75); Potassium 4.2 mmol/L (3.5-5.1); Protein, Total 7.7 g/dL (6.4-8.2); Sodium Level 137 mmol/L (136-145)
[2023-04-22 09:17] LABS: Lactic Acid 2.9 mmol/L (0.4-1.9)
[2023-04-22] MEDS: HYDROmorphone 1 MG/ML Syringe IV (09:45)
[2023-04-22 11:52] LABS: Lactic Acid 1.5 mmol/L (0.4-1.9)
[2023-04-22 12:54] LABS: Reflex Lactate? Y
[2023-04-22 12:55] VITALS: BP 131/84; PULSE 79; RESP 16; O2SAT 95
== END 2023-04-22 12:56 | disposition home or self-care (01) ==
PROVIDERS: Emergency Provider Emergency Medicine; PCP Family Medicine; Visit Provider Emergency Medicine
DX: R10.9 Unspecified abdominal pain (principal); I42.9 Cardiomyopathy, unspecified; I71.40 Abdominal aortic aneurysm, without rupture, unspecified; N28.9 Disorder of kidney and ureter, unspecified; I25.10 Atherosclerotic heart disease of native coronary artery without angina pectoris; I10 Essential (primary) hypertension; E78.5 Hyperlipidemia, unspecified; E87.20 Acidosis, unspecified; F17.210 Nicotine dependence, cigarettes, uncomplicated; Z79.82 Long term (current) use of aspirin; Z79.01 Long term (current) use of anticoagulants; Z79.899 Other long term (current) drug therapy; Z95.1 Presence of aortocoronary bypass graft; I25.2 Old myocardial infarction; Z95.2 Presence of prosthetic heart valve
CPT/HCPCS: 74174; 80048; 80076; 83605; 83690; 85025; 96361; 96374; 96375; 99283; J7030; Q9967; A4216; J2405

== ENCOUNTER → 2023-07-09 | Outpatient (CLI) | payer MEDICARE, SELFPAY ==
[2019-08-08 14:05] VITALS: BMI 27.6
[2023-07-09 14:00] LABS: Amphetamine Urine VISTA NEGATIVE (<1000 ng/mL); Barbiturate Urine VISTA NEGATIVE (< 200 ng/mL); Benzodiazepine Urine VISTA NEGATIVE (< 200 ng/mL); Cocaine Urine VISTA NEGATIVE (< 300 ng/mL); Ecstacy Urine VISTA NEGATIVE (< 500 ng/mL); Methadone Urine VISTA NEGATIVE (< 300 ng/mL); PCP Urine VISTA NEGATIVE (< 25 ng/mL); THC Urine VISTA NEGATIVE (< 50 ng/mL); Vista UDS pH Range 5
--- OUTSIDE RECORDS SUMMARY | 2023-07-09 15:05 | XMS RPT_ITS | CCD ---
Author Name Unknown Address [id number] [place] [address] Organization [facility] Care Team Providers Care Box Order Person Name Role Phone ERICKNING, CAMILO Unavailable Unavailable PHYSICIAN, NONE Unavailable Unavailable DENNING, CAMILO Unavailable Unavailable PHYSICIAN, NONE Unavailable Unavailable VIRGINIA LAMBERT Unavailable Unavailable PHYSICIAN, NONE Unavailable Unavailable VIRGINIA LAMBERT Unavailable Unavailable KAREEN, CAMILO Unavailable Unavailable DEZ SNELL Unavailable Unavailable JESSICA, DR ARIANNE Dotson Attending Unavaila ble JESSICA, DR ARIANNE Dotson Primary Care Unavaila ble JESSICA, DR ARIANNE Dotson Admitting Unavaila ble JESSICA, DR ARIANNE Dotson Attending Unavaila ble JESSICA, DR ARIANNE Dotson Primary Care Unavaila ble JESSICA, DR ARIANNE Dotson Admitting Unavaila ble Annika Villasenor Primary Care Provider Annika Villasenor MD Primary Care Provider MICHELLE MARIND АНДРЕЙ Attending Unavailable GISEL, KHALED MARIOD Referring Unavailable ANNIKA VILLASENOR Primary Care Unavailable GISEL, KHALED MARIOD Referring Unavailable ANNIKA VILLASENOR Primary Care Unavailable GISEL, KHALED MELOUD Referring Unavailable ANNIKA VILLASENOR Primary Care Unavailable GISEL, KHGEED MARIOD Attending Unavailable ANNIKA VILLASENOR Primary Care Unavailable GISEL, KHALED MELKETAND Referring Unavailable ANNIKA VILLASENOR Primary Care Unavailable HERMES SHEEHAN Attending Unavailable Allergies Allergy Classification Reported Allergen(s) Allergy Type Date of Onset Reaction(s) Facility (5 sources) Sulfonamides (Antibiotic); Translations: [SULFA (SULFONAMIDE ANTIBIOTICS)] Drug Allergy 07-24-2017 Intolerance [facility] Medications Current Medications Medication Drug Class(es) Dates Sig (Normalized) Sig (Original) perflutren lipid microspheres 1.3 mL in NaCl (PF) 0.9% 10 mL injection (DEFINITY) (4 sources) Start: 06-09-2022 End: 09-08-2023 perflutren lipid microspheres 1.3 mL in NaCl (PF) 0.9% 10 mL injection (DEFINITY) Completed/Discontinued Medications Medication Drug Class(es) Dates Sig (Normalized) Sig (Original) aspirin 81 mg delayed release oral tablet (4 sources) Platelet Aggregation Inhibitor, Nonsteroidal Anti-inflammatory Drug take 1 tablet by mouth once daily aspirin, enteric coated (ASPIRIN, ENTERIC COATED) 81 mg EC tablet Take 81 mg by mouth once daily. 0 Active Problems Active Problems Problem Classification Problem Date Documented Date Episodic/Chronic Congestive heart failure; nonhypertensive (2 sources) Chronic combined systolic and diastolic heart failure; Translations: [Chronic combined systolic (congestive) and diastolic (congestive) heart failure] Onset: 12-08-2022 12-08-2022 Chronic Coronary atherosclerosis and other heart disease (5 sources) Patient post percutaneous transluminal coronary angioplasty; Translations: [Coronary angioplasty status] Onset: 06-09-2022 Episodic Peripheral and visceral atherosclerosis (8 sources) Atherosclerosis of artery of lower limb; Translations: [Atherosclerosis of [place] arteries of extremities with intermittent claudication, right leg] Onset: 06-09-2022 Chronic Substance-related disorders (6 sources) Nicotine dependence; Translations: [Nicotine dependence, unspecified, uncomplicated] Onset: 01-31-2019 01-31-2019 Chronic Past or Other Problems Problem Classification Problem Date Documented Date Episodic/Chronic Biliary tract disease (1 source) Calculus of gallbladder without cholecystitis without obstruction; Translations: [Calculus of gallbladder without cholecystitis without obstruction] Onset: 01-20-2022 Episodic Other lower respiratory disease (4 sources) Dyspnea; Translations: [Shortness of breath] Onset: 06-09-2022 Episodic Other lower respiratory disease (1 source) Shortness of breath; Translations: [Shortness of breath] Onset: 06-09-2022 Episodic Other screening for suspected conditions (not mental disorders or infectious disease) (5 sources) Patient encounter status; Translations: [Encounter for screening for cardiovascular disorders] Onset: 06-09-2022 Episodic Results Test Name Value Interpretation Reference Range [facility] ity Vital Signs Date Time Vital Sign Value Performing Clinician Agata lobo 12-08-2022 11:22-0400 Body weight 84.82 kg Papi Marin MD Work Phone: [facility] 12-08-2022 11:22-0400 Diastolic blood pressure 80 mm[Hg] Papi Marin MD Work Phone: [facility] 12-08-2022 11:22-0400 Heart rate 73 /min Papi Marin MD Work Phone: [facility] 12-08-2022 11:22-0400 SaO2% (BldA) [Mass fraction] 99 % Papi Marin MD Work Phone: [facility] 12-08-2022 11:22-0400 Systolic blood pressure 156 mm[Hg] Papi Marin MD Work Phone: [facility] 06-09-2022 14:32-0500 Body weight 85.73 kg Papi Marin MD Work Phone: [facility] 06-09-2022 14:32-0500 Diastolic blood pressure 70 mm[Hg] Papi Marin MD Work Phone: [facility] 06-09-2022 14:32-0500 Heart rate 98 /min Papi Marin MD Work Phone: [facility] 06-09-2022 14:32-0500 SaO2% (BldA) [Mass fraction] 57 % Papi Marin MD Work Phone: [facility] 06-09-2022 14:32-0500 Systolic blood pressure 182 mm[Hg] Papi Marin MD Work Phone: [facility] Encounters Encounter Date Encounter Type Care Provider Facility Start: 12-08-2022 End: 12-08-2022 ambulatory PAPI MARIN Facility:[facility] Start: 12-08-2022 End: 12-08-2022 Patient encounter procedure Papi Marin MD Work Phone: Cardiology Procedures Date Procedure Procedure Detail Performing Clinician Start: 06-09-2022 History of coronary artery bypass grafting Hx of CABG Papi Marin MD Work Phone: Start: 01-31-2019 Electrocardiogram Start: 01-30-2019 Electrocardiogram History of coronary artery bypass grafting Hx of CABG Papi Marin MD Work Phone: Plan of Treatment Date Care Activity Detail Author Start: 07-18-2024 LIPID SCREEN LIPID SCREEN [facility] Start: 01-30-2023 Influenza vaccination INFLUENZA (#1) [facility] Start: 07-18-2022 DIABETES SCREEN DIABETES SCREEN [facility] Start: 06-01-2022 ADVANCE DIRECTIVE DISCUSSION ADVANCE DIRECTIVE DISCUSSION [facility] Start: 06-01-2022 DEPRESSION ASSESSMENT DEPRESSION ASSESSMENT [facility] Start: 01-30-2022 Influenza vaccination INFLUENZA (#1) [facility] Start: 06-01-2021 ADVANCE DIRECTIVE DISCUSSION ADVANCE DIRECTIVE DISCUSSION [facility] Start: 02-07-2021 COVID-19 VACCINE (3 - Booster for Moderna series) COVID-19 VACCINE (3 - Booster for Moderna series) [facility] Start: 11-02-2020 COVID-19 VACCINE (3 - Booster for Moderna series) COVID-19 VACCINE (3 - Booster for Moderna series) [facility] Start: 11-02-2020 COVID-19 VACCINE (3 - Moderna series) COVID-19 VACCINE (3 - Moderna series) [facility] Start: 2020 PNEUMOCOCCAL: 65+ (1 - PCV) PNEUMOCOCCAL: 65+ (1 - PCV) [facility] Start: 2010 PROSTATE CANCER SCREENING DISCUSSION PROSTATE CANCER SCREENING DISCUSSION [facility] Start: 2005 SHINGRIX VACCINE (1 of 2) SHINGRIX VACCINE (1 of 2) [facility] Start: 2000 COLOGUARD (FIT-DNA) COLOGUARD (FIT-DNA) [facility] Start: 2000 Colonoscopy COLONOSCOPY [facility] Start: 2000 COLORECTAL CANCER SCREENING COLORECTAL CANCER SCREENING [facility] Start: [address] COLONOGRAPHY [facility] Start: 2000 FECAL OCCULT BLOOD FECAL OCCULT BLOOD [facility] Start: 2000 SIGMOIDOSCOPY SIGMOIDOSCOPY [facility] Start: 1974 Urine microalbumin profile DTAP,TDAP,TD (1 - Tdap) [facility] Start: 1973 ANNUAL PCP TEAM CHRONIC DISEASE VISIT ANNUAL PCP TEAM CHRONIC DISEASE VISIT [facility] Start: 1973 HEPATITIS C SCREENING HEPATITIS C SCREENING [facility] Start: 1967 Adult depression screening assessment DEPRESSION SCREENING [facility] Start: 1961 PNEUMOCOCCAL: 65+ (1 - PCV) PNEUMOCOCCAL: 65+ (1 - PCV) [facility] Start: 1955 ABDOMINAL AORTIC ANEURYSM SCREENING ABDOMINAL AORTIC ANEURYSM SCREENING [facility] End: 05-22-2023 ECG COMPLETE ECG COMPLETE ECG Routine Screening for ischemic heart disease Nicotine use disorder, F17.2 1 Occurrences starting 05/22/2022 until 05/22/2023 [facility] Work Phone: Payers Date Payer Category Payer Unknown ANTHEM BL[employer] S [employer] BLUE SHIELD ANTHEM MEDIBLUE ACCESS [id number] 2020-Present [phone] [address] [place] [address] PPO [id number] 2020 Unknown ANTHEM [employer] CR[employer] S AND BLUE SHIELD ANTHEM MEDIBLUE ACCESS [id number] 2020-Present [id number] [place], [place] [address] PPO [id number] 2020 Unknown [id number] 2017 Medicare [id number] 1955 Unknown [id number] 1955 Unknown [id number] Medicare [id number] Social History Date Type Detail Facility Start: 04-04-2019 End: 06-09-2022 Tobacco smoking status NHIS Ex-smoker [facility] End: 01-30-2019 History of tobacco use Current smoker [facility] End: 01-30-2019 History of tobacco use Cigarette Smoker [facility] Start: 04-04-2019 End: 06-09-2022 Tobacco use and exposure Smokeless tobacco non-user [facility] Start: 08-01-2019 End: 12-08-2022 Alcohol intake Current drinker of alcohol (finding) [facility] Start: 04-04-2019 History SDOH Alcohol Comment social [facility] Start: 04-04-2019 End: 06-09-2022 Tobacco Comment pack every 2-3 days, on and off for 30 years [facility] Start: 1955 Sex Assigned At Not on file [facility] Start: 01-30-2019 End: 12-08-2022 History of Social function [facility] Start: 01-30-2019 End: 12-08-2022 Tobacco use panel [facility] 01-30-2019 to 12-08-2022 Papi Marin MD - 12/08/2022 11:40 AM EDTTelephone Encounter - Omaira Lopez [employer] - 06/18/2022 9:51 AM ESTTelephone Encounter - Omaira Lopez [facility] - 06/18/2022 9:49 AM EST Note Date & Type Note Facility 12-08-2022 Note HNO ID: [id number] Author: Papi Marin MD Service: ? Author Type: Physician Type: Progress Notes Filed: 12/08/2022 11:47 AM Note Text: Papi Marin MD Interventional Cardiology [facility] [address], [place] [address] [phone] Chief Complaint No chief complaint on file. HISTORY OF PRESENT ILLNESS: Mr. Rosado is a 67 year old male seen in my office for follow-up prior history of severe three-vessel coronary artery disease with peripheral vascular patient had endovascular graft for infrarenal abdominal aneurysm and bypass surgery consistent with renal STEVIE to the LAD of the vein graft to the posterolateral branch with a vein graft to the right He had non-STEMI elevation myocardial infarction with angioplasty and LAD first diagonal and circumflex Cardiac Risk Factors age (male over 45, female over 55), hyperlipidemia, history of smoking, hypertension, family history of CAD PAST MEDICAL HISTORY Diagnosis Date AAA (abdominal aortic aneurysm) ([facility]) s/p repair Arthritis CAD (coronary artery disease) Cardiomyopathy ([facility]) Heart attack ([facility]) x3 HTN (hypertension) NSTEMI (non-ST elevated myocardial infarction) ([facility]) 01/30/2019 2 prior [place]'s PAD (peripheral artery disease) ([facility]) PAST SURGICAL HISTORY Procedure Laterality Date CORONARY ARTERY BYPASS GRAFT x3 DIR RPR ANEURYSM ABDOMINAL AORTA 1994 FAMILY HISTORY Problem Relation Age of Onset Rheumatologic disease Mother Ischemic Heart Disease Father dided from [place] age 60 other (vascular disease) Father Arthritis Sister Arthritis Sister Social History Tobacco Use Smoking status: Former Years: 30.00 Types: Cigarettes Quit date: 01/30/2019 Years since quittin.8 Smokeless tobacco: Never Tobacco comments: pack every 2-3 days, on and off for 30 years Vaping Use Vaping Use: Never used Substance Use Topics Alcohol use: Yes Comment: social Drug use: Never ALLERGIES Allergen Reactions Sulfa (Sulfonamide * Intolerance Medications: Current Outpatient Medications Medication Sig Dispense Refill pantoprazole DR (PROTONIX) 40 mg tablet TAKE 1 TABLET BY MOUTH EVERY DAY 90 tablet 3 atorvastatin (LIPITOR) 80 mg tablet TAKE 1 TABLET BY MOUTH EVERY DAY 90 tablet 3 lisinopril (ZESTRIL, PRINIVIL) 5 mg tablet TAKE 1 TABLET BY MOUTH EVERY DAY 90 tablet 3 metoprolol tartrate, short acting, (LOPRESSOR) 25 mg tablet TAKE 1 TABLET BY MOUTH TWICE DAILY 270 tablet 2 Blood Pressure Test Kit-Medium kit 1 Device twice daily. 1 Kit 1 nitroglycerin sublingual (NITROQUICK) 0.4 mg SL tablet Dissolve 1 tablet under the tongue every 5 minutes as needed. 1 Bottle of 25 6 aspirin, enteric coated (ASPIRIN, ENTERIC COATED) 81 mg EC tablet Take 81 mg by mouth once daily. clopidogrel (PLAVIX) 75 mg tablet Take 75 mg by mouth once daily. Current Facility-Administered Medications Medication Dose Route Frequency Provider Last Rate Last Admin perflutren lipid microspheres 1.3 mL in NaCl (PF) 0.9% 10 mL injection (DEFINITY) INTRAVENOUS DIRECTED NANDO Marin MD sodium chloride 0.9 % (flush) 10 mL (BD POSIFLUSH) 10 mL INTRAVENOUS DIRECTED NANDO Marin MD Review of Systems Constitutional: Negative for chills, diaphoresis, fever, malaise/fatigue and weight loss. HENT: Negative for congestion, ear discharge, ear pain, hearing loss, nosebleeds, sinus pain, sore throat and tinnitus. Eyes: Negative for blurred vision, double vision, photophobia, pain, discharge and redness. Respiratory: Negative for cough, hemoptysis, sputum production, shortness of breath, wheezing and stridor. Cardiovascular: Negative for chest pain, palpitations, orthopnea, claudication, leg swelling and PND. Gastrointestinal: Negative for abdominal pain, blood in stool, constipation, diarrhea, heartburn, melena, nausea and vomiting. Genitourinary: Negative for dysuria, flank pain, frequency, hematuria and urgency. Musculoskeletal: Negative for back pain, falls, joint pain, myalgias and neck pain. Skin: Negative for itching and rash. Neurological: Negative for dizziness, tingling, tremors, sensory change, speech change, focal weakness, seizures, loss of consciousness, weakness and headaches. Endo/Heme/Allergies: Negative for environmental allergies and polydipsia. Does not bruise/bleed easily. Psychiatric/Behavioral: Negative for depression, hallucinations, memory loss, substance abuse and suicidal ideas. The patient is not nervous/anxious and does not have insomnia. Physical Examination: Vitals:BP 156/80 Pulse 73 Wt 187 lb (84.8kg) SpO2 99% BP w/Orthostatic Vitals Date and Time Orthostatic BP Orthostatic Pulse BP Pulse BP Position BP Site BP Cuff Size 12/08/22 1122 -- -- 156/80 73 Sitting Right Arm Regular Adult Last 2 Encounter Wt Readings: Date: Wt: 12/08/2022 84.8 kg (187 lb) 06/09/2022 85.7 kg (189 lb) Physical Exam Constitutional: (more content not included)... [facility] 12-08-2022 History of Presen t illness Narrative Images from the original note were not included. Papi Marin MD Interventional Cardiology [facility] [id number], [place] [address] [phone] Chief Complaint No chief complaint on file. HISTORY OF PRESENT ILLNESS: Mr. Rosado is a 67 year old male seen in my office for follow-up prior history of severe three-vessel coronary artery disease with peripheral vascular patient had endovascular graft for infrarenal abdominal aneurysm and bypass surgery consistent with renal STEVIE to the LAD of the vein graft to the posterolateral branch with a vein graft to the right He had non-STEMI elevation myocardial infarction with angioplasty and LAD first diagonal and circumflex Cardiac Risk Factors age (male over 45, female over 55), hyperlipidemia, history of smoking, hypertension, family history of CAD PAST MEDICAL HISTORY Diagnosis Date AAA (abdominal aortic aneurysm) ([facility]) s/p repair Arthritis CAD (coronary artery disease) Cardiomyopathy ([facility]) Heart attack ([facility]) x3 HTN (hypertension) NSTEMI (non-ST elevated myocardial infarction) ([facility]) 01/30/2019 2 prior [place]'s PAD (peripheral artery disease) ([facility]) PAST SURGICAL HISTORY Procedure Laterality Date CORONARY ARTERY BYPASS GRAFT x3 DIR RPR ANEURYSM ABDOMINAL AORTA 1994 FAMILY HISTORY Problem Relation Age of Onset Rheumatologic disease Mother Ischemic Heart Disease Father dided from [place] age 60 other (vascular disease) Father Arthritis Sister Arthritis Sister Social History Tobacco Use Smoking status: Former Years: 30.00 Types: Cigarettes Quit date: 01/30/2019 Years since quittin.8 Smokeless tobacco: Never Tobacco comments: pack every 2-3 days, on and off for 30 years Vaping Use Vaping Use: Never used Substance Use Topics Alcohol use: Yes Comment: social Drug use: Never ALLERGIES Allergen Reactions Sulfa (Sulfonamide * Intolerance Medications: Current Outpatient Medications Medication Sig Dispense Refill pantoprazole DR (PROTONIX) 40 mg tablet TAKE 1 TABLET BY MOUTH EVERY DAY 90 tablet 3 atorvastatin (LIPITOR) 80 mg tablet TAKE 1 TABLET BY MOUTH EVERY DAY 90 tablet 3 lisinopril (ZESTRIL, PRINIVIL) 5 mg tablet TAKE 1 TABLET BY MOUTH EVERY DAY 90 tablet 3 metoprolol tartrate, short acting, (LOPRESSOR) 25 mg tablet TAKE 1 TABLET BY MOUTH TWICE DAILY 270 tablet 2 Blood Pressure Test Kit-Medium kit 1 Device twice daily. 1 Kit 1 nitroglycerin sublingual (NITROQUICK) 0.4 mg SL tablet Dissolve 1 tablet under the tongue every 5 minutes as needed. 1 Bottle of 25 6 aspirin, enteric coated (ASPIRIN, ENTERIC COATED) 81 mg EC tablet Take 81 mg by mouth once daily. clopidogrel (PLAVIX) 75 mg tablet Take 75 mg by mouth once daily. Current Facility-Administered Medications Medication Dose Route Frequency Provider Last Rate Last Admin perflutren lipid microspheres 1.3 mL in NaCl (PF) 0.9% 10 mL injection (DEFINITY) INTRAVENOUS DIRECTED PRN Papi Marin MD sodium chloride 0.9 % (flush) 10 mL (BD POSIFLUSH) 10 mL INTRAVENOUS DIRECTED PRN Papi Marin MD Review of Systems Constitutional: Negative for chills, diaphoresis, fever, malaise/fatigue and weight loss. HENT: Negative for congestion, ear discharge, ear pain, hearing loss, nosebleeds, sinus pain, sore throat and tinnitus. Eyes: Negative for blurred vision, double vision, photophobia, pain, discharge and redness. Respiratory: Negative for cough, hemoptysis, sputum production, shortness of breath, wheezing and stridor. Cardiovascular: Negative for chest pain, palpitations, orthopnea, claudication, leg swelling and PND. Gastrointestinal: Negative for abdominal pain, blood in stool, constipation, diarrhea, heartburn, melena, nausea and vomiting. Genitourinary: Negative for dysuria, flank pain, frequency, hematuria and urgency. Musculoskeletal: Negative for back pain, falls, joint pain, myalgias and neck pain. Skin: Negative for itching and rash. Neurological: Negative for dizziness, tingling, tremors, sensory change, speech change, focal weakness, seizures, loss of consciousness, weakness and headaches. Endo/Heme/Allergies: Negative for environmental allergies and polydipsia. Does not bruise/bleed easily. Psychiatric/Behavioral: Negative for depression, hallucinations, memory loss, substance abuse and suicidal ideas. The patient is not nervous/anxious and does not have insomnia. Physical Examination: Vitals:BP 156/80 Pulse 73 Wt 187 lb (84.8kg) SpO2 99% BP w/Orthostatic Vitals Date and Time Orthostatic BP Orthostatic Pulse BP Pulse BP Position BP Site BP Cuff Size 12/08/22 1122 -- -- 156/80 73 Sitting Right Arm Regular Adult Last 2 Encounter Wt Readings: Date: Wt: 12/08/2022 84.8 kg (187 lb) 06/09/2022 85.7 kg (189 lb) Physical Exam Constitutional: General: He is not in acute distress. Appearance: He is not diaphoretic. HENT: Head: Normocephalic and atraumatic. Right Ear: External ear normal. Left Ear: External ear normal. Nose: Nose normal. Mouth/Throat: Pharynx: Oropharynx is clear. Eyes: General: Right eye: No discharge. Left eye: No discharge. Conjunctiva/sclera: Conjunctivae normal. Pupils: Pupils are equal, round, and reactive to light. Cardiovascular: Rate and Rhythm: Normal rate and regular rhythm. Heart sounds: Normal heart sounds, S1 normal and S2 normal. No murmur heard. No friction rub. No gallop. No S3 or S4 sounds. Pulmonary: Effort: Pulmonary effort is normal. No respiratory distress. Breath sounds: Normal breath sounds. No wheezing or rales. Chest: Chest wall: No tenderness. Musculoskeletal: General: Normal range of motion. Cervical back: Normal range of motion and neck supple. Skin: General: Skin is warm and dry. Neurological: Mental Status: He is alert and oriented to person, place, and time. Psychiatric: Mood and Affect: Mood normal. Pertinent Labs: CBC: Hemoglobin (g/dL) Date Value 07/18/2019 13.0 Hematocrit (%) Date Value 07/18/2019 42.2 WBC (k/uL) Date Value 07/18/2019 10.11 Platelet Count (k/uL) Date Value 07/18/2019 559 BMP: Glucose (mg/dL) Date Value 07/18/2019 109 Potassium (mmol/L) Date Value 07/18/2019 4.3 Sodium (mmol/L) Date Value 07/18/2019 140 Chloride (mmol/L) Date Value 07/18/2019 105 CO2 (mmol/L) Date Value 07/18/2019 26 Creatinine (mg/dL) Date Value 07/18/2019 1.40 BUN (mg/dL) Date Value 07/18/2019 11 Anion Gap (mmol/L) Date Value 07/18/2019 9 Calcium (mg/dL) Date Value 07/18/2019 9.5 INR: Lipid Profile: Cholesterol, Total Date Value Ref Range Status 07/18/2019 118 <200 mg/dL Final Comment: <200 mg/dL, Desirable 200-239 mg/dL, Borderline high >239 mg/dL, High HDL Cholesterol Date Value Ref Range Status 07/18/2019 25 (L) >39 mg/dL Final Comment: 40-59 mg/dL, Acceptable >59 mg/dL, High: Negative risk factor for coronary heart disease <40 mg/dL, Low: Positive risk factor for coronary heart disease LDL Cholesterol Date Value Ref Range Status 07/18/2019 74 <100 mg/dL Final Comment: <100 mg/dL, Optimal 100-129 mg/dL, Near optimal/above optimal 130-159 mg/dL, Borderline high 160-189 mg/dL, High >189 mg/dL, Very high Secondary prevention optimal LDL Cholesterol levels are recommended to be < 70 mg/dL Triglyceride Date Value Ref Range Status 07/18/2019 97 <150 mg/dL Final Comment: <150 mg/dL, Normal 150-199 mg/dL, Borderline high 200-499 mg/dL, High >499 mg/dL, Very high Hemoglobin A1C: No results found for: HGBA1C TSH: No results found for: TSHREFL Prior Cardiac Testing none Assessment and Plan: 67 years old gentleman prior history of coronary artery disease and peripheral ASSESSMENT/PLAN: 1. Hx of CABG - ICD9: V45.81, ICD10: Z95.1 (primary diagnosis) Bypass surgery consist of free ARCE of the vein graft to posterolateral branch of the LAD and vein graft to the ramus In-stent restenosis of occluded vein graft to the ramus Patient has no angina . Medical therapy 2. Chronic combined systolic and diastolic CHF (congestive heart failure) ([facility]) - ICD9: 428.42, 428.0, ICD10: I50.42 No clinical evidence of congestive heart failure on medical treatment 3. Atherosclerosis of [place] artery of right lower extremity with intermittent claudication (HCC) - ICD9: 440.21, ICD10: I70.211 Prior history of iliac stent and infra aortic abdominal aneurysm repair 4. Post PTCA - ICD9: V45.82, ICD10: Z98.61 No angina 5. PVD (peripheral vascular disease) ([facility]) - ICD9: 443.9, ICD10: I73.9 No claudication Papi Marin MD Follow up planning: One year Electronically signed by Papi Marin MD on December 08, 2022, 11:40 AM The above note was partially created using a dictation recognition software. A reasonable attempt has been made to correct any errors. documented in this encounter [facility] 06-18-2022 Miscellaneous Notes Spoke with patient about test results. Patient verbalizes understanding. Omaira Lopez LPN ----- Message from Zunilda Christine APRN.BUSINESS REPORTING DEVELOPER sent at 06/18/2022 9:45 AM EST ----- Please call patient and notify him of echo results ordered by Dr. Marin. EF has improved from 35% to 56%. Thank you! documented in this encounter [facility] 06-09-2022 Note HNO ID: [id number] Author: Papi Marin MD Service: ? Author Type: Physician Type: Progress Notes Filed: 06/09/2022 3:28 PM Note Text: Papi Marin MD Interventional Cardiology [place] [address], [place] [address] [phone] Chief Complaint Patient presents with: New Patient HISTORY OF PRESENT ILLNESS: Mr. Rosado is a 66 year old male seen in my office for follow-up for his cardiac condition patient had prior history of severe three-vessel coronary artery disease with severe peripheral vascular disease with multiple intervention in both legs with stenting and abdominal aorta stent Patient in 2010 he had bypass surgery at [facility] consisted for free ARCE to the LAD of the vein graft to posterolateral branch graft and a vein graft to the ramus 2017 he had non-ST segment elevation [place] and underwent angioplasty with drug-eluting stent to the LAD and first diagonal and the circumflex February 01, 2019 non-STEMI shows mid LAD EMERGENCY SPECIALIST first diagonal EMERGENCY SPECIALIST 100% circumflex 95% in-stent restenosis with occluded vein graft to the ramus is proximal right coronary artery EMERGENCY SPECIALIST vein graft to the ramus is occluded vein graft to the posterolateral branch is occluded his free ARCE originating from a vein graft of the posterolateral branches were patent 1994 he had open repair for infrarenal aneurysm Patient also have by iliac aortic stent Chronic kidney disease Patient denies any chest pain or shortness of breath On good medical therapy Cardiac Risk Factors age (male over 45, female over 55), hyperlipidemia, history of smoking PAST MEDICAL HISTORY Diagnosis Date AAA (abdominal aortic aneurysm) s/p repair Arthritis CAD (coronary artery disease) Cardiomyopathy (HCC) Heart attack (HCC) x3 HTN (hypertension) NSTEMI (non-ST elevated myocardial infarction) ([facility]) 01/30/2019 2 prior [place]'s PAD (peripheral artery disease) ([facility]) PAST SURGICAL HISTORY Procedure Laterality Date CORONARY ARTERY BYPASS GRAFT x3 DIR RPR ANEURYSM ABDOMINAL AORTA 1994 FAMILY HISTORY Problem Relation Age of Onset Rheumatologic disease Mother Ischemic Heart Disease Father dided from [place] age 60 other (vascular disease) Father Arthritis Sister Arthritis Sister Social History Tobacco Use Smoking status: Former Years: 30.00 Types: Cigarettes Quit date: 01/30/2019 Years since quittin.3 Smokeless tobacco: Never Tobacco comments: pack every 2-3 days, on and off for 30 years Vaping Use Vaping Use: Never used Substance Use Topics Alcohol use: Yes Comment: social Drug use: Never ALLERGIES Allergen Reactions Sulfa (Sulfonamide * Intolerance Medications: Current Outpatient Medications Medication Sig Dispense Refill pantoprazole DR (PROTONIX) 40 mg tablet TAKE 1 TABLET BY MOUTH EVERY DAY 90 tablet 3 atorvastatin (LIPITOR) 80 mg tablet TAKE 1 TABLET BY MOUTH EVERY DAY 90 tablet 3 lisinopril (ZESTRIL, PRINIVIL) 5 mg tablet TAKE 1 TABLET BY MOUTH EVERY DAY 90 tablet 3 metoprolol tartrate, short acting, (LOPRESSOR) 25 mg tablet TAKE 1 TABLET BY MOUTH TWICE DAILY 270 tablet 2 nitroglycerin sublingual (NITROQUICK) 0.4 mg SL tablet Dissolve 1 tablet under the tongue every 5 minutes as needed. 1 Bottle of 25 6 aspirin, enteric coated (ASPIRIN, ENTERIC COATED) 81 mg EC tablet Take 81 mg by mouth once daily. clopidogrel (PLAVIX) 75 mg tablet Take 75 mg by mouth once daily. Blood Pressure Test Kit-Medium kit 1 Device twice daily. 1 Kit 1 Current Facility-Administered Medications Medication Dose Route Frequency Provider Last Rate Last Admin perflutren lipid microspheres 1.3 mL in NaCl (PF) 0.9% 10 mL injection (DEFINITY) INTRAVENOUS DIRECTED PRN Papi Marin MD sodium chloride 0.9 % (flush) 10 mL (BD POSIFLUSH) 10 mL INTRAVENOUS DIRECTED PRN Papi Marin MD Review of Systems Constitutional: Negative for chills, diaphoresis, fever, malaise/fatigue and weight loss. HENT: Negative for congestion, ear discharge, ear pain, hearing loss, nosebleeds, sinus pain, sore throat and tinnitus. Eyes: Negative for blurred vision, double vision, photophobia, pain, discharge and redness. Respiratory: Negative for cough, hemoptysis, sputum production, shortness of breath, wheezing and stridor. Cardiovascular: Negative for chest pain, palpitations, orthopnea, claudication, leg swelling and PND. Gastrointestinal: Negative for abdominal pain, blood in stool, constipation, diarrhea, heartburn, melena, nausea and vomiting. Genitourinary: Negative for dysuria, flank pain, frequency, hematuria and urgency. Musculoskeletal: Positive for joint pain. Negative for back pain, falls, myalgias and neck pain. Skin: Negative for itching and rash. Neurological: Negative for dizziness, tingling, tremors, sensory change, speech change, focal weakness, seizures, loss of consciousness, weakness and headaches. Endo/Heme/Allerg (more content not included)... [facility] 06-09-2022 History of Presen t illness Narrative Images from the original note were not included. Papi Marin MD Interventional Cardiology [place] [place] [address], [place] [address] [phone] Chief Complaint Patient presents with: New Patient HISTORY OF PRESENT ILLNESS: Mr. Rosado is a 66 year old male seen in my office for follow-up for his cardiac condition patient had prior history of severe three-vessel coronary artery disease with severe peripheral vascular disease with multiple intervention in both legs with stenting and abdominal aorta stent Patient in 2010 he had bypass surgery at [facility] consisted for free ARCE to the LAD of the vein graft to posterolateral branch graft and a vein graft to the ramus 2017 he had non-ST segment elevation [place] and underwent angioplasty with drug-eluting stent to the LAD and first diagonal and the circumflex February 01, 2019 non-STEMI shows mid LAD EMERGENCY SPECIALIST first diagonal EMERGENCY SPECIALIST 100% circumflex 95% in-stent restenosis with occluded vein graft to the ramus is proximal right coronary artery EMERGENCY SPECIALIST vein graft to the ramus is occluded vein graft to the posterolateral branch is occluded his free ARCE originating from a vein graft of the posterolateral branches were patent 1994 he had open repair for infrarenal aneurysm Patient also have by iliac aortic stent Chronic kidney disease Patient denies any chest pain or shortness of breath On good medical therapy Cardiac Risk Factors age (male over 45, female over 55), hyperlipidemia, history of smoking PAST MEDICAL HISTORY Diagnosis Date AAA (abdominal aortic aneurysm) s/p repair Arthritis CAD (coronary artery disease) Cardiomyopathy ([facility]) Heart attack ([facility]) x3 HTN (hypertension) NSTEMI (non-ST elevated myocardial infarction) ([facility]) 01/30/2019 2 prior [place]'s PAD (peripheral artery disease) ([facility]) PAST SURGICAL HISTORY Procedure Laterality Date CORONARY ARTERY BYPASS GRAFT x3 DIR RPR ANEURYSM ABDOMINAL AORTA 1994 FAMILY HISTORY Problem Relation Age of Onset Rheumatologic disease Mother Ischemic Heart Disease Father dided from [place] age 60 other (vascular disease) Father Arthritis Sister Arthritis Sister Social History Tobacco Use Smoking status: Former Years: 30.00 Types: Cigarettes Quit date: 01/30/2019 Years since quittin.3 Smokeless tobacco: Never Tobacco comments: pack every 2-3 days, on and off for 30 years Vaping Use Vaping Use: Never used Substance Use Topics Alcohol use: Yes Comment: social Drug use: Never ALLERGIES Allergen Reactions Sulfa (Sulfonamide * Intolerance Medications: Current Outpatient Medications Medication Sig Dispense Refill pantoprazole DR (PROTONIX) 40 mg tablet TAKE 1 TABLET BY MOUTH EVERY DAY 90 tablet 3 atorvastatin (LIPITOR) 80 mg tablet TAKE 1 TABLET BY MOUTH EVERY DAY 90 tablet 3 lisinopril (ZESTRIL, PRINIVIL) 5 mg tablet TAKE 1 TABLET BY MOUTH EVERY DAY 90 tablet 3 metoprolol tartrate, short acting, (LOPRESSOR) 25 mg tablet TAKE 1 TABLET BY MOUTH TWICE DAILY 270 tablet 2 nitroglycerin sublingual (NITROQUICK) 0.4 mg SL tablet Dissolve 1 tablet under the tongue every 5 minutes as needed. 1 Bottle of 25 6 aspirin, enteric coated (ASPIRIN, ENTERIC COATED) 81 mg EC tablet Take 81 mg by mouth once daily. clopidogrel (PLAVIX) 75 mg tablet Take 75 mg by mouth once daily. Blood Pressure Test Kit-Medium kit 1 Device twice daily. 1 Kit 1 Current Facility-Administered Medications Medication Dose Route Frequency Provider Last Rate Last Admin perflutren lipid microspheres 1.3 mL in NaCl (PF) 0.9% 10 mL injection (DEFINITY) INTRAVENOUS DIRECTED PRN Papi Marin MD sodium chloride 0.9 % (flush) 10 mL (BD POSIFLUSH) 10 mL INTRAVENOUS DIRECTED PRN Papi Marin MD Review of Systems Constitutional: Negative for chills, diaphoresis, fever, malaise/fatigue and weight loss. HENT: Negative for congestion, ear discharge, ear pain, hearing loss, nosebleeds, sinus pain, sore throat and tinnitus. Eyes: Negative for blurred vision, double vision, photophobia, pain, discharge and redness. Respiratory: Negative for cough, hemoptysis, sputum production, shortness of breath, wheezing and stridor. Cardiovascular: Negative for chest pain, palpitations, orthopnea, claudication, leg swelling and PND. Gastrointestinal: Negative for abdominal pain, blood in stool, constipation, diarrhea, heartburn, melena, nausea and vomiting. Genitourinary: Negative for dysuria, flank pain, frequency, hematuria and urgency. Musculoskeletal: Positive for joint pain. Negative for back pain, falls, myalgias and neck pain. Skin: Negative for itching and rash. Neurological: Negative for dizziness, tingling, tremors, sensory change, speech change, focal weakness, seizures, loss of consciousness, weakness and headaches. Endo/Heme/Allergies: Negative for environmental allergies and polydipsia. Does not bruise/bleed easily. Psychiatric/Behavioral: Negative for depression, hallucinations, memory loss, substance abuse and suicidal ideas. The patient is not nervous/anxious and does not have insomnia. Physical Examination: Vitals:BP 182/70 Pulse 98 Wt 189 lb (85.7kg) SpO2 57% BP w/Orthostatic Vitals Date and Time Orthostatic BP Orthostatic Pulse BP Pulse BP Position BP Site BP Cuff Size 06/09/22 1432 -- -- 182/70 98 Sitting Right Arm Large Adult Last 2 Encounter Wt Readings: Date: Wt: 06/09/2022 85.7 kg (189 lb) 01/20/2022 86.6 kg (191 lb) Physical Exam Constitutional: General: He is not in acute distress. Appearance: He is not diaphoretic. HENT: Head: Normocephalic and atraumatic. Right Ear: External ear normal. Left Ear: External ear normal. Nose: Nose normal. Mouth/Throat: Pharynx: Oropharynx is clear. Eyes: General: Right eye: No discharge. Left eye: No discharge. Conjunctiva/sclera: Conjunctivae normal. Pupils: Pupils are equal, round, and reactive to light. Cardiovascular: Rate and Rhythm: Normal rate and regular rhythm. Heart sounds: Normal heart sounds, S1 normal and S2 normal. No murmur heard. No friction rub. No gallop. No S3 or S4 sounds. Pulmonary: Effort: Pulmonary effort is normal. No respiratory distress. Breath sounds: Normal breath sounds. No wheezing or rales. Chest: Chest wall: No tenderness. Musculoskeletal: General: Normal range of motion. Cervical back: Normal range of motion and neck supple. Skin: General: Skin is warm and dry. Neurological: Mental Status: He is alert and oriented to person, place, and time. Psychiatric: Mood and Affect: Mood normal. Behavior: Behavior normal. Thought Content: Thought content normal. Judgment: Judgment normal. Pertinent Labs: CBC: Hemoglobin (g/dL) Date Value 07/18/2019 13.0 Hematocrit (%) Date Value 07/18/2019 42.2 WBC (k/uL) Date Value 07/18/2019 10.11 Platelet Count (k/uL) Date Value 07/18/2019 559 BMP: Glucose (mg/dL) Date Value 07/18/2019 109 Potassium (mmol/L) Date Value 07/18/2019 4.3 Sodium (mmol/L) Date Value 07/18/2019 140 Chloride (mmol/L) Date Value 07/18/2019 105 CO2 (mmol/L) Date Value 07/18/2019 26 Creatinine (mg/dL) Date Value 07/18/2019 1.40 BUN (mg/dL) Date Value 07/18/2019 11 Anion Gap (mmol/L) Date Value 07/18/2019 9 Calcium (mg/dL) Date Value 07/18/2019 9.5 INR: Lipid Profile: Cholesterol, Total Date Value Ref Range Status 07/18/2019 118 <200 mg/dL Final Comment: <200 mg/dL, Desirable 200-239 mg/dL, Borderline high >239 mg/dL, High HDL Cholesterol Date Value Ref Range Status 07/18/2019 25 (L) >39 mg/dL Final Comment: 40-59 mg/dL, Acceptable >59 mg/dL, High: Negative risk factor for coronary heart disease <40 mg/dL, Low: Positive risk factor for coronary heart disease LDL Cholesterol Date Value Ref Range Status 07/18/2019 74 <100 mg/dL Final Comment: <100 mg/dL, Optimal 100-129 mg/dL, Near optimal/above optimal 130-159 mg/dL, Borderline high 160-189 mg/dL, High >189 mg/dL, Very high Secondary prevention optimal LDL Cholesterol levels are recommended to be < 70 mg/dL Triglyceride Date Value Ref Range Status 07/18/2019 97 <150 mg/dL Final Comment: <150 mg/dL, Normal 150-199 mg/dL, Borderline high 200-499 mg/dL, High >499 mg/dL, Very high Hemoglobin A1C: No results found for: HGBA1C TSH: No results found for: TSHREFL Prior Cardiac Testing EKG Assessment and Plan: 66 years old status of coronary artery disease with multiple stenting and bypass surgery in the past Coronary artery disease His recent cardiac catheterization 2019 medical therapy was elected No active angina He is on good medical treatment Continue same medical treatment 2. Peripheral vascular disease Patient does have active claudication We will schedule for pulse volume recording assessment and ankle-brachial index assessment Follow up plannin MONTHS Electronically signed by Papi Marin MD on June 09, 2022, 3:23 PM The above note was partially created using a dictation recognition software. A reasonable attempt has been made to correct any errors. documented in this encounter [facility] 01-21-2022 Note HNO ID: [id number] Author: Hermes Sheehan MD Service: ? Author Type: Physician Type: Progress Notes Filed: 01/21/2022 9:04 AM Note Text: HISTORY AND PHYSICAL Chey E Aaron 1955 REFERRING PHYSICIAN: MD Fili CHIEF COMPLAINT: ED Follow-up ([facility] ER, gallstones/) HPI: The patient is a 66 year old male with a complaint of complaint of generalized mid abdominal pain. This is happened on 2 separate occasion was not brought about by eating food just nefariously started it did not radiate into the back it was slightly to the right of the abdomen but it was not in the right upper quadrant. He is not having any fevers or chills no dysuria no chest pain no melena he did have some nausea and vomiting. While in the emergency department he had a CAT scan which showed cholelithiasis but no signs of acute cholecystitis his white count was normal his liver function test showed no signs of increased bilirubin slightly elevated alkaline phosphatase. PAST MEDICAL HISTORY Diagnosis Date AAA (abdominal aortic aneurysm) ([facility]) s/p repair Arthritis CAD (coronary artery disease) Cardiomyopathy (HCC) Heart attack (HCC) x3 HTN (hypertension) NSTEMI (non-ST elevated myocardial infarction) ([facility]) 01/30/2019 2 prior [place]'s PAD (peripheral artery disease) ([facility]) PAST SURGICAL HISTORY Procedure Laterality Date CORONARY ARTERY BYPASS GRAFT x3 DIR RPR ANEURYSM ABDOMINAL AORTA 1994 Current Outpatient Medications Medication Sig pantoprazole DR (PROTONIX) 40 mg tablet TAKE 1 TABLET BY MOUTH EVERY DAY atorvastatin (LIPITOR) 80 mg tablet TAKE 1 TABLET BY MOUTH EVERY DAY lisinopril (ZESTRIL, PRINIVIL) 5 mg tablet TAKE 1 TABLET BY MOUTH EVERY DAY metoprolol tartrate, short acting, (LOPRESSOR) 25 mg tablet TAKE 1 TABLET BY MOUTH TWICE DAILY Blood Pressure Test Kit-Medium kit 1 Device twice daily. nitroglycerin sublingual (NITROQUICK) 0.4 mg SL tablet Dissolve 1 tablet under the tongue every 5 minutes as needed. aspirin, enteric coated (ASPIRIN, ENTERIC COATED) 81 mg EC tablet Take 81 mg by mouth once daily. clopidogrel (PLAVIX) 75 mg tablet Take 75 mg by mouth once daily. Current Facility-Administered Medications Medication Dose Route Frequency perflutren lipid microspheres 1.3 mL in NaCl (PF) 0.9% 10 mL injection (DEFINITY) INTRAVENOUS DIRECTED PRN sodium chloride 0.9 % (flush) 10 mL (BD POSIFLUSH) 10 mL INTRAVENOUS DIRECTED PRN ALLERGIES: Sulfa (Sulfonamide Antibiotics) PERSONAL HISTORY: Social History Tobacco Use Smoking status: Former Years: 30.00 Types: Cigarettes Quit date: 01/30/2019 Years since quittin.9 Smokeless tobacco: Never Tobacco comments: pack every 2-3 days, on and off for 30 years Vaping Use Vaping Use: Never used Substance Use Topics Alcohol use: Yes Comment: social Drug use: Never FAMILY HISTORY: FAMILY HISTORY Problem Relation Age of Onset Ischemic Heart Disease Father dided from [place] age 60 REVIEW OF SYMPTOMS: The review of systems data was entered by the nurse and reviewed by me Nursing Notes: Unique MarionKATHRYN 01/20/2022 3:42 PM Signed REVIEW OF SYSTEMS: General: The patient denies fatigue, denies weight loss, denies weight gain, denies feeling hot, and denies feelings of cold. Eyes: The patient denies glaucoma, denies eye injury/surgery, wears glasses or contacts. Ear/Nose/Throat: The patient denies allergies, denies hayfever, denies ear infections, and denies bloody noses. Cardiovascular: The patient denies chest pain, denies heart disease, notes high blood pressure,notes cardiac stent, notes prior heart attack, denies irregular heart beat, denies high cholesterol, notes poor circulation, denies heart failure, other cardiac issues, denies claudication, denies cold feet, notes peripheral arterial stent. Respiratory: The patient denies tuberculosis, denies pneumonia, denies frequent cough, denies pulmonary embolism, denies shortness of breath, and denies coughing up blood. Gastrointestinal: The patient denies difficulty swallowing, denies acid reflux, denies ulcers, denies vomiting, denies jaundice/hepatitis, denies gallbladder problems, denies black or tarry stools, denies hemorrhoids, denies bleeding from rectum, denies diverticulitis, denies constipation, denies diarrhea, denies loss of stool control, and denies hernias. Kidney/Bladder: The patient denies kidney stones, denies urine infections, and denies bloody urine. Skin: The patient denies a history of skin cancer, denies bleeding/changing moles, and denies a history of skin rash. Neurologic: The patient denies a history of epilepsy/convulsions, denies headaches, denies head/spinal injuries, and denies stroke/TIA. Psychiatric: The patient denies psychiatric medications, denies depression, and denies voices, denies substance abuse. Endocrine: The patient denies thyroid disorders, denies diabetes, and denies hormonal problems. Hematologi (more content not included)... [facility] 01-02-2022 Miscellaneous Notes Pt daughter contacted office stating pt is irate that he has been rescheduled multiple times. Pt is looking to follow with a local talend etl developer and keep Dr. Geronimo as an annual appointment due to cancellations. Apologized to patient for the inconvenience documented in this encounter [facility] documented as of this encounter (statuses as of 01/02/2022) [facility] History of Past illness Narrative* Problem Noted Date Resolved Date NSTEMI (non-ST elevated myocardial infarction) 0 01/30/2019 02/02/2019 documented as of this encounter (statuses as of 06/09/2022) [facility] History of Past illness Narrative* Problem Noted Date Resolved Date NSTEMI (non-ST elevated myocardial infarction) 0 01/30/2019 02/02/2019 documented as of this encounter (statuses as of 06/26/2022) [facility] History of Past illness Narrative* Problem Noted Date Diagnosed Date Resolved Date NSTEMI (non-ST elevated myoc ardial infarction) 01/30/2019 02/02/2019 documented as of this encounter (statuses as of 12/08/2022) [facility] Screening for ischemic heart disease- Primary Nicotine use disorder, F17.2 Tobacco use disorder Shortness of breath Hx of CABG Postsurgical aortocoronary bypass status Post PTCA Postsurgical percutaneous transluminal coronary angioplasty status Atherosclerosis of [place] artery of right lower extremity with intermittent claudication (HCC) Atherosclerosis of [place] arteries of the extremities with intermittent claudication [facility] Diagnosis Hx of CABG- Primary Postsurgical aortocoronary bypass status Chronic combined systolic and diastolic CHF (congestive heart failure) (HCC) Chronic combined systolic and diastolic heart failure Atherosclerosis of [place] artery of right lower extremity with intermittent claudication (HCC) Atherosclerosis of [place] arteries of the extremities with intermittent claudication Post PTCA Postsurgical percutaneous transluminal coronary angioplasty status PVD (peripheral vascular disease) (HCC) Peripheral vascular disease, unspecified [facility] Outpatient Procedure (Routine) - Authorized Specialty Diagnoses / Procedures Referred By Radha t [facility] Diagnoses Atherosclerosis of [place] artery of right lower extremity with intermittent claudication (HCC) Procedures PVR ANK PRESS [facility] NON-INVAS PHYSIOLOGIC STD EXTREMITY ART 2 LEVEL Papi Marin MD [address] [place] [address] [facility] [place] [address] [place] [id number] Referral ID Status Reason Start Date Expiration Date Visits Requested Visits Authorized [id number] Authorized Auto-Generat ed Referral 06/09/2022 06/09/2023 1 1 * Outpatient Procedure (Routine) - Authorized Specialty Diagnoses / Procedures Referred By Contac t Referred To Contact [facility] [place] Diagnoses Atherosclerosis of [place] artery of right lower extremity with intermittent claudication (HCC) Procedures PVR LEG W/EXC [facility] N-INVAS PHYSIOLOGIC STD LXTR ART COMPL BI Papi Marin MD [address] [place] [address] [facility] [address] [place] [address] Referral ID Status Reason Start Date Expiration Date Visits Requested Visits Authorized [id number] Authorized Auto-Generat ed Referral 06/09/2022 06/09/2023 1 1 * Outpatient Procedure (Routine) - Authorized Specialty Diagnoses / Procedures Referred By Contac t Referred To Contact [facility] Diagnoses Shortness of breath Procedures ECHO ECHO TTHRC R-T 2D W/WOM-MODE COMPL SPEC&COLR D Papi Marin MD [address] [place] [address] Fax: [facility] [address] [place] [id number] Referral ID Status Reason Start Date Expiration Date Visits Requested Visits Authorized [id number] Authorized Auto-Generat ed Referral 06/09/2022 06/09/2023 1 1 * Outpatient Procedure (Routine) - Closed Specialty Diagnoses / Procedures Referred By Contac t Referred To [facility] Diagnoses Screening for ischemic heart disease Nicotine use disorder Procedures ECG COMPLETE ECG ROUTINE ECG W/LEAST 12 LDS W/I&R Papi Mrain MD [address] [place] [address] [facility] [place] [address], [place] [id number] Referral ID Status Reason Start Date Expiration Date V isits Requested Visits Authorized [id number] Closed Auto-Generate d Referral 05/22/2022 05/22/2023 1 1 [facility] Summary Purpose Family History No Family History Records FoundNo Family History Records FoundNo Family History Records FoundNo Family History Records FoundNo Family History Records Found Advance Directives No Advanced Directives Records FoundDocuments on File Type Date Recorded 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 Patients with a score of 40 or above are considered highest risk for readmission. Specific patient level drivers will be listed at the bottom of the summary. Admission Information Admission Information ADMIT DATE: 01/30/2019 DISCHARGE DATE: 02/02/2019 MY DOCTORS AND MEDICAL TEAM: My Main Hospital Doctor: Wes Navarro Primary Care Provider: No primary care provider on file. My Medical Team Members: Treatment Team: Attending Provider: Wes Navarro MY CONDITION AT DISCHARGE: REASON I WAS IN THE HO (more content not included)... Note HNO ID: [id number] Author: Monique maurer (Rn) GERONIMO Moncada Service: ? Author Type: Registered Nurse Type: Discharge Summary Filed: 02/02/2019 12:03 PM Note Text: Patient received discharge instructions, verbalized understanding. Pt IVs removed intact. All patient belongings returned to patient. Patient left floor ambulatory in stable condition with RN escort to private vehicle with daughter. Additional Source Comments (unrecognized sect ion and content) No Status Records FoundNo Status Records FoundNo Status Records FoundNo Status Records FoundNo Status Records Found INFORMATION SOURCE (unrecogn ized section and content) DATE CREATED AUTHOR AUTHOR'S ORGANIZ ATION 02/03/2019 [facility] DATE CREATED AUTHOR AUTHOR'S ORGANIZ ATION 02/08/2019 [facility] DATE CREATED AUTHOR AUTHOR'S ORGANIZ ATION 09/22/2020 [facility] DATE CREATED AUTHOR AUTHOR'S ORGANIZ ATION 12/08/2022 [facility] Source Comments (unrecognize d section and content) In the event this informatio n is protected by the Federal Confidentiality of Alcohol and Drug Abuse Patient Records regulations: The Federal rules restrict any use of the information to criminally investigate or prosecute any alcohol or drug abuse patient.[facility] the event this information is protected by the Federal Confidentiality of Alcohol and Drug Abuse Patient Records regulations: The Federal rules restrict any use of the information to criminally investigate or prosecute any alcohol or drug abuse patient.[facility] the event this information is protected by the Federal Confidentiality of Alcohol and Drug Abuse Patient Records regulations: The Federal rules restrict any use of the information to criminally investigate or prosecute any alcohol or drug abuse patient.[facility] the event this information is protected by the Federal Confidentiality of Alcohol and Drug Abuse Patient Records regulations: The Federal rules restrict any use of the information to criminally investigate or prosecute any alcohol or drug abuse patient.[facility] Reason for Visit (unrecogniz ed section and content) Reason Comments New Patient Reason Comments Results Care Teams (unrecognized sec tion and content) Box Order Person Relationship Specialty Start Date End Date Annika Villasenor MD [address] [place], [place] [id number] PCP - General Family Medicine 04/04/19 Box Order Person Relationship Specialty Start Date End Date Annika Villasenor MD [address] [place], [place] [id number] PCP - General Family Medicine 04/04/19 Box Order Person Relationship Specialty Start Date End Date Annika Villasenor MD [address] [place] [address] PCP - General Family Medicine 04/04/19 FOR RECORDS PERTAINING TO PATIENTS WHO ARE OR HAVE BEEN ENROLLED IN A CHEMICAL DEPENDENCY/SUBSTANCEABUSE PROGRAM, SOME INFORMATION MAY BE OMITTED. This clinical summary was aggregated from multiple sources. Caution should be exercised in using it in the provision of clinical care. This summary normalizes information from multiple sources, and as a consequence, information in this document may materially change the coding, format and clinical context of patient data. In addition, data may be omitted in some cases. CLINICAL DECISIONS SHOULD BE BASED ON THE PRIMARY CLINICAL RECORDS. [facility]. provides no warranty or guarantee of the accuracy or completeness of information in this document.
== END | disposition home or self-care (01) ==
LOC: LAB 13:09
PROVIDERS: PCP Family Medicine; Referring Provider Anesthesiology Pain Medicine; Visit Provider Anesthesiology Pain Medicine
DX: F11.20 Opioid dependence, uncomplicated (principal)
CPT/HCPCS: 80307

== ENCOUNTER 2023-10-31 06:55 | Emergency (ER) | payer MEDICARE, SELFPAY ==
[2019-08-08 14:05] VITALS: BMI 27.6
[2023-10-31 06:56] VITALS: BP 205/81; PULSE 66; RESP 19; TEMP 36.2; O2SAT 98; BMI 26.8
--- NOTE | 2023-10-31 07:12 | CT_ITS ---
HISTORY: abdominal pain. TECHNIQUE: CTA chest, abdomen, and pelvis was obtained after the intravenous administration of 100 mL Isovue-370 with sagittal and coronal reconstructed MIP views. Three-dimensional surface rendered sequence of the thoracic and abdominal aorta was obtained. A radiation dose optimization technique was used for this scan. 974 images. COMPARISON: 04/22/2023, 08/13/2022. FINDINGS: Chest- CENTRAL AIRWAYS: Grossly patent. LUNGS: Mild chronic interstitial lung disease with honeycombing and peripheral reticular opacities. Mild dependent opacities with septal thickening. PLEURA: No pneumothorax or significant pleural effusion. HEART/PERICARDIUM: Heart within normal limits in size. Midline sternotomy with coronary artery bypass graft. No significant pericardial effusion. VESSELS: Calcified and noncalcified plaque of the thoracic aorta with chronic mural thrombus and ulcerations. No thoracic aortic aneurysm. No filling defect in the pulmonary arteries. MEDIASTINUM/LAI: No pathologically enlarged lymphadenopathy. OSSEOUS STRUCTURES: Degenerative change. Abdomen and pelvis- BOWEL: Bowel including appendix nondilated. Colonic diverticulosis without focal pericolonic inflammatory change. PERITONEUM: No significant ascites. LIVER: No enhancing mass. GALLBLADDER: Small calcified gallstones with mild gallbladder wall edema. SPLEEN/PANCREAS/ADRENAL GLANDS: Homogeneous and nonenlarged. KIDNEYS: Chronic mild cortical thinning. No hydronephrosis. Normal enhancement. VESSELS: Calcified and noncalcified plaque of the abdominal aorta with chronic mural thrombus. 3.8 x 4.9 cm aneurysm of the infrarenal abdominal aorta containing a patent stent at its left aspect, similar to prior. No acute retroperitoneal hematoma or contrast leak. No significant stenosis of the celiac axis, superior mesenteric, or bilateral renal arteries. Chronic collateral flow of the inferior mesenteric artery. Patent right iliac artery stent. Patent left external iliac/common femoral artery stent. PELVIC ORGANS: Unremarkable. OSSEOUS STRUCTURES: Degenerative change. CT/CTA Chst, Abd, Pel W and/or WO IMPRESSION: Chronic interstitial lung disease with mild pulmonary edema and atelectasis. No evidence of pulmonary embolism. Chronic mural thrombus and ulcerations of the thoracic aorta without aneurysm. No significant interval change in size of abdominal aortic aneurysm. No acute rupture. Cholelithiasis and mild gallbladder wall edema, concerning for acute cholecystitis. Colonic diverticulosis without acute diverticulitis. Electronically Signed: Joan Villa MD at 8:50 EDT ,
--- NOTE | 2023-10-31 07:13 | ED.VIS.GI ---
HPI HPI - GI History of Present Illness Chief Complaint: Abd Pain Narrative Narrative: 68-year-old male presenting with abdominal pain. He describes as diffuse and aching. It started last evening. Patient states he had a similar aching in his stomach about 6 months ago. He states he followed up with GI after this and had a pill endoscopy which was normal. Patient also has a history of endovascular stent of his aorta and has an abdominal aneurysm which last measured at 5.18 centimeters. Patient states the last time he had this he was told that his aneurysm had enlarged. He states he followed up with vascular about 3 months ago and they stated he was stable. He denies a ripping or tearing sensation. Denies chest pain. He is not having constipation, diarrhea, fever, chills, nausea, vomiting. 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 Hyperlipidemia Cardiomyopathy PAD (peripheral artery disease) CAD in [place] artery NSTEMI (non-ST elevated myocardial infarction) Essential hypertension Heart disease Arthritis HTN (hypertension) Home Medications ?Medication ?Instructions ?Recorded ?Last Taken ?Type clopidogrel 75 mg tablet (Plavix) 75 mg PO QDAY 07/24/17 10/31/23 History aspirin 81 mg tablet,delayed 81 mg PO DAILY@0800 01/30/19 10/31/23 History release atorvastatin 80 mg tablet 80 mg PO QHS 02/16/19 10/30/23 History metoprolol tartrate 25 mg tablet 25 mg PO BID #180 tabs 02/25/19 10/31/23 Rx lisinopril 5 mg tablet 5 mg PO QHS blood pressure 08/08/19 10/30/23 History nitroglycerin 0.4 mg sublingual 0.4 mg sublingual Q5-15M PRN Pain, 08/08/19 Unknown History tablet Mild pantoprazole 40 mg tablet,delayed 40 mg PO DAILY GERD 03/31/21 10/31/23 History release Allergy/AdvReac Type Severity Reaction Status Date / Time Sulfa (Sulfonamide Allergy Other Verified 10/31/23 06:56 Antibiotics) Family History Father CAD (coronary artery disease) Mother Cancer CAD (coronary artery disease) Surgical History Presence of coronary angioplasty implant and graft (~06/08/19) History of coronary artery bypass surgery (~2000) Abdominal aortic aneurysm without rupture S/P PTCA (percutaneous transluminal coronary angioplasty) History of open heart surgery History of osysz-qqztn-tmaahdo bypass Social History Smoking Status: Current some day smoker tobacco type: cigarettes alcohol intake: current alcohol intake frequency: a few times a week Alcohol type: beer and hard liquor substance use type: does not use ROS ROS ED Constitutional Constitutional ED: Denies chills, fever(s) or sweats Eyes Eyes: Denies blurry vision or change in vision ENT ENT ED: Denies ear pain or sore throat Cardiovascular Cardiovascular: Denies chest pain, palpitations or racing heartbeat Respiratory/Chest Respiratory/Chest: Denies cough, dyspnea or sputum Gastrointestinal Gastrointestinal: Reports abdominal pain; Denies constipation, diarrhea, nausea or vomiting Genitourinary Genitourinary ED: Denies dysuria, hematuria or urinary frequency Musculoskeletal Musculoskeletal: Denies arthralgias, myalgias or neck pain Integumentary Denies abscess, Abrasions or rash Neurologic Neurologic: Denies headache(s), paresthesias or weakness Psychiatric Psychiatric: Denies anxiety, depression, suicidal ideation or suicidal thoughts Endocrine Endocrinology: Denies polydipsia or polyuria EXAM Physical Exam Const Vital Signs: 10/31/23 06:56 10/31/23 08:56 10/31/23 10:00 Temperature 97.1 F L Temperature Source Temporal Pulse Rate 66 80 80 Respiratory Rate 19 H 18 16 Blood Pressure 205/81 H 195/77 H 200/85 H Blood Pressure Mean 122 116 123 Pulse Ox 98 96 96 Oxygen Delivery Method Room Air Room Air Room Air Positive well nourished and obese Nutritional Appearance: obese HEENT Reports TM's clear and moist mucous membranes Tympanic Membrane ED: Yes TM's clear Eyes PERRL and EOMs intact bilaterally General Eye ED: Negative for scleral icterus Neck no lymphadenopathy Resp normal respiratory effort and clear to auscultation bilaterally Auscultation: Negative for rales, rhonchi or wheezes Cardio regular rate and regular rhythm GI GI Narrative: Diffuse generalized tenderness to palpation. Inspection: abdominal distention Palpation: Negative for guarding, rigid, hepatomegaly, splenomegaly, mass or pulsatile mass Neuro CN's II-XII intact bilaterally and moves all extremities Sensorium / Orientation: alert Motor Exam: strength 5/5 throughout Psych mental status grossly normal Skin no wounds MDM MDM MDM Narrative Medical decision making narrative: Patient presenting with abdominal pain insert patient presenting with right flank pain. Differential includes colitis, diverticulitis, gastritis, pancreatitis, acute cholecystitis, constipation, appendicitis, UTI, pyelonephritis, calculi, ureteral calculi, obstruction, malignancy, mesenteric ischemia, dehydration, electrolyte abnormalities, worsening aortic aneurysm. CBC will be obtained to assess white blood cell count, hemoglobin, platelets. CMP to assess liver function, renal function, electrolytes, glucose. Lipase to assess for pancreatitis. Urinalysis to assess for UTI or occult blood. Patient medicated with morphine, Zofran. CBC shows normal white blood count at 10.6. Hemoglobin 14.5. Platelets are normal at 310. Creatinine 1.38 near baseline. Electrolytes are within normal limits. Alkaline phos is elevated today at 172 however his ALT and AST and total bilirubin are normal. Urinalysis negative for infection. Patient still having pain given half milligram of Dilaudid and we obtained a CTA of the chest abdomen pelvis to look evaluate his aorta the aorta appeared to have not changed in size. Gallbladder wall appeared thickened on the CTA so we followed with an gallbladder ultrasound and patient needed to be remedicated with 0.5 mg of Dilaudid. Gallbladder wall appeared to be thickened. There is cholelithiasis. Radiology interprets this is upper limits of normal gallbladder wall thickness. Discussed the case with Dr. Joshi at length. She was concerned because the patient is on Plavix and she would not be able to do surgery right away because he would bleed too much. She states that she would have to hospitalize him and hold him for about 5 days in order to do gallbladder surgery if this was needed. Initially she requested that I admit to medicine and she can be consulted to manage his pain however after speaking with the hospitalist she had told him that she did not plan on doing any surgery for him because he would be complex given his history of abdominal aneurysm. At this point since the hospitalist would have no surgical backup he does not want to admit the patient for abdominal pain. I discussed with the patient his options of being transferred to a facility that could manage the gallbladder should be an issue although he does not have focal right upper quadrant pain. He states he does not want to be transferred and he wants to go home at this point. I did advise against this however the patient has capacity to make this decision. His daughter is at bedside and she understands situation as well and has been involved in her follow-up care. Discussed return precautions for them. Impression: 1. Abdominal pain 2. Cholelithiasis 3. Nausea Lab Data Attestation: I reviewed the patient's lab results. Labs: Laboratory Results - last 24 hr 10/31/23 10/31/23 07:15 08:50 WBC 10.6 RBC 4.57 L Hgb 14.5 Hct 44.4 MCV 97.2 H MCH 31.7 MCHC 32.7 RDW Std Deviation 47.0 H RDW Coeff of [place] 13.0 Plt Count 310 MPV 9.8 Immature Gran % (Auto) 0.800 Neut % (Auto) 72.7 H Lymph % (Auto) 19.0 [place] % (Auto) 4.6 Eos % (Auto) 2.1 Baso % (Auto) 0.8 Absolute Neuts (auto) 7.7 Absolute Lymphs (auto) 2.01 Nucleated RBC % 0 Sodium 139 Potassium 3.8 Chloride 109 H Carbon Dioxide 22.0 Anion Gap 8 BUN 13 Creatinine 1.38 H Estim Creat Clear Calc 52.90 Est GFR (MDRD) Af Amer 66 Est GFR (MDRD) Non-Af 54 L BUN/Creatinine Ratio 9.4 L Glucose 185 H Calcium 8.6 Total Bilirubin 0.60 AST 10 L ALT 14 L Alkaline Phosphatase 172 H Total Protein 7.0 Albumin 3.1 L Globulin 3.9 Albumin/Globulin Ratio 0.8 L Lipase 54 Urine Color Yellow Urine Clarity Clear Urine pH 5.0 Ur Specific [place] 1.010 Urine Protein 30 H Urine Glucose (UA) Normal Urine Ketones Negative Urine Occult Blood Negative Urine Nitrite Negative Urine Bilirubin Negative Urine Urobilinogen 1 H Ur Leukocyte Esterase Negative Urine RBC 0 SEEN Urine WBC 0 SEEN Ur Squamous Epith Cells 0 SEEN Urine Bacteria 0 SEEN Urine Mucus 0 SEEN Radiography Diagnostic Testing: Clinical Impression(s) from Imaging Studies Chest/Abdomen/Pelvis CTA 10/31/23 07:12 IMPRESSION: Chronic interstitial lung disease with mild pulmonary edema and atelectasis. No evidence of pulmonary embolism. Chronic mural thrombus and ulcerations of the thoracic aorta without aneurysm. No significant interval change in size of abdominal aortic aneurysm. No acute rupture. Cholelithiasis and mild gallbladder wall edema, concerning for acute cholecystitis. Colonic diverticulosis without acute diverticulitis. Electronically Signed: Joan Villa MD at 8:50 EDT , Gallbladder Ultrasound 10/31/23 08:58 IMPRESSION: Cholelithiasis with the gallbladder wall thickness upper limits of normal. Electronically Signed: Joan Villa MD at 10:22 EDT , Discharge Plan Triage Chief Complaint: Abd Pain ED Provider: Nomi Garcia Dx/Rx/DC Orders Instructions: ED Abdominal Pain Unkn Cause Fem Prescriptions: No Action clopidogrel [Plavix] 75 mg tablet 75 mg PO QDAY atorvastatin 80 mg tablet 80 mg PO QHS nitroglycerin 0.4 mg tablet, sublingual 0.4 mg SUBLINGUAL Q5-15M PRN (Reason: Pain, Mild) Rx Instructions: until response; do not exceed 3 doses per episode lisinopril 5 mg tablet 5 mg PO QHS aspirin 81 MG tablet 81 mg PO DAILY@0800 pantoprazole 40 mg tablet,delayed release (DR/EC) 40 mg PO DAILY metoprolol tartrate 25 mg tablet 25 mg PO BID Qty: 180 3RF Primary Care Provider: Annika Villasenor Referrals: Annika Villasenor MD [Primary Care Provider] - Print Language: Pashto Disposition Disposition: Home, Self Care
[2023-10-31] MEDS: Morphine 4 MG/ML Syringe IV (07:23)
[2023-10-31] MEDS: Ondansetron 4 MG/2 ML Vial IV (07:23)
[2023-10-31 07:28] LABS: Absolute Lymphocyte Count 2.01 X10^3/uL (0.83-4.51); Absolute Neutrophil Count 7.7 X10^3/uL (2.0-7.7); Basophil# 0.08 X10^3/uL; Basophil% 0.8 % (0-1); Eosinophil# 0.22 X10^3/uL; Eosinophils% 2.1 % (0-5); Hematocrit 44.4 % (40-54); Hemoglobin 14.5 g/dL (13.0-16.5); Lymphocyte # 2.01 X10^3/ul (0.83-4.51); Mean Corp Hgb Conc 32.7 g/dL (32-36); Mean Corpuscular Hgb 31.7 pg (27.0-32.0); Mean Corpuscular Volume 97.2 fL (80-94); Mean Platelet Vol. 9.8 fl (6.2-12.0); Monocyte# 0.49 X10^3/uL; Monocyte% 4.6 % (0-10); NRBC Flagged by Analyzer 0 % (0-5); Neutrophil # 7.72 X10^3/uL (2.7-7.7); Neutrophil % 72.7 % (47-70); Platelet Count 310 K/mm3 (150-450); Red Blood Count 4.57 M/mm3 (4.6-6.2); White Blood Count 10.6 K/mm3 (4.4-11.0)
[2023-10-31 07:46] LABS: ALB/GLOB Ratio 0.8 RATIO (0.9-2.4); AST(SGOT) 10 U/L (15-37); Alanine Aminotransfer ALT/SGPT 14 U/L (16-61); Albumin, Serum 3.1 g/dL (3.2-5.0); Alkaline Phosphatase 172 U/L (45-117); Anion Gap 8 (5-15); BUN 13 mg/dL (7-18); BUN/Creat Ratio 9.4 RATIO (10-20); Calcium,Total 8.6 mg/dL (8.5-10.1); Chloride 109 mmol/L (98-107); Creatinine, Serum 1.38 mg/dL (0.70-1.30); EST Glomerular Filtration Rate 54 mL/min (>60); Est Glom Filt Rate - Afr Amer 66 mL/min (>60); Globulin 3.9 g/dL (2.2-4.2); Glucose 185 mg/dL (74-106); Lipase 54 U/L (13-75); Potassium 3.8 mmol/L (3.5-5.1); Sodium Level 139 mmol/L (136-145)
[2023-10-31] MEDS: HYDROmorphone 0.5 MG/0.5 ML SYRINGE IV ×2 (08:23→11:16)
[2023-10-31] MEDS: proMETHazine 25 MG/ML Syringe 12.5 MG IM (08:25)
[2023-10-31 08:54] LABS: Bacteria 0 SEEN /hpf (None Seen); Mucous, Urine 0 SEEN /hpf (<or=2+); Red Blood Cells-Urine 0 SEEN /hpf (0-5); Squamous Epithelial Cells - UA 0 SEEN /hpf (0-5); White Blood Cells 0 SEEN /hpf (0-5)
[2023-10-31 08:56] VITALS: BP 195/77; PULSE 80; RESP 18; O2SAT 96
--- NOTE | 2023-10-31 08:58 | US_ITS ---
HISTORY: abdominal pain. TECHNIQUE: Alarcon scale and color doppler imaging was performed of the right upper quadrant. 134 images. COMPARISON: CTA same day. FINDINGS: LIVER: 14.3 cm in length. Homogeneous echotexture without focal lesion demonstrated. No intrahepatic ductal dilatation. COMMON BILE DUCT: 5 mm in diameter. GALLBLADDER: Small gallstones in the gallbladder neck. 3 mm wall thickness. No pericholecystic fluid. Sonographic Rojo sign negative. PANCREAS: Not well visualized due to overlying bowel gas. RIGHT KIDNEY: 9.7 cm in length with a cortical thickness of 1.4 cm. No hydronephrosis or gross renal mass demonstrated. US/Gallbladder IMPRESSION: Cholelithiasis with the gallbladder wall thickness upper limits of normal. Electronically Signed: Joan Villa MD at 10:22 EDT ,
[2023-10-31 09:22] LABS: Color, Urine Yellow (Yellow); Glucose, Dipstick Normal (Normal); Ketone-Dipstick Negative (Negative); Leukocyte Esterase-Dipstick Negative /ul (Negative); Nitrite-Dipstick Negative (Negative); Occult Blood-Urine Negative /ul (Negative); Protein-Dipstick 30 mg/dl (Negative); Urine Bilirubin Dipstick Negative (Negative); Urine Clarity Clear (Clear); Urine Urobilinogen 1 mg/dl (Normal)
[2023-10-31 10:00] VITALS: BP 200/85; PULSE 80; RESP 16; O2SAT 96
[2023-10-31] MEDS: 0.9% Normal Saline (1000mL) 1,000 ML 999 ML IV (11:16)
[2023-10-31] MEDS: Pantoprazole Sodium 40 MG in 0.9% Normal Saline (100mL MB+) 100 ML 330 MG IV (11:16)
[2023-10-31 12:20] VITALS: BP 196/70; PULSE 88; RESP 18; TEMP 36.6; O2SAT 98
== END 2023-10-31 12:29 | disposition home or self-care (01) ==
PROVIDERS: Emergency Provider Student in an Organized Health Care Education/Training Program; PCP Family Medicine; Visit Provider Student in an Organized Health Care Education/Training Program
DX: K80.20 Calculus of gallbladder without cholecystitis without obstruction (principal); I10 Essential (primary) hypertension; F17.210 Nicotine dependence, cigarettes, uncomplicated; Z79.82 Long term (current) use of aspirin; Z79.02 Long term (current) use of antithrombotics/antiplatelets; Z79.899 Other long term (current) drug therapy; I25.2 Old myocardial infarction; Z95.5 Presence of coronary angioplasty implant and graft
CPT/HCPCS: 71275; 74174; 76705; 80053; 81001; 83690; 85025; 96365; 96372; 96375; 96376; 99283; Q9967; A4216; J2405

== ENCOUNTER 2023-12-15 15:27 | Emergency (ER) | payer MEDICARE, SELFPAY ==
[2019-08-08 14:05] VITALS: BMI 27.6
[2023-12-15 15:27] VITALS: BP 191/133; PULSE 71; RESP 22; TEMP 36.6; O2SAT 98; BMI 28.4
[2023-12-15 15:30] VITALS: BP 197/81; PULSE 61; RESP 20; TEMP 36.6; O2SAT 99
[2023-12-15 16:19] LABS: Absolute Lymphocyte Count 4.57 X10^3/uL (0.83-4.51); Absolute Neutrophil Count 6.1 X10^3/uL (2.0-7.7); Basophil# 0.11 X10^3/uL; Basophil% 0.9 % (0-1); Eosinophil# 0.46 X10^3/uL; Eosinophils% 3.8 % (0-5); Hematocrit 45.3 % (40-54); Hemoglobin 14.2 g/dL (13.0-16.5); Lymphocyte # 4.57 X10^3/ul (0.83-4.51); Lymphocyte % 37.5 % (19-41); Mean Corp Hgb Conc 31.3 g/dL (32-36); Mean Corpuscular Hgb 29.2 pg (27.0-32.0); Mean Corpuscular Volume 93.2 fL (80-94); Mean Platelet Vol. 9.7 fl (6.2-12.0); Monocyte# 0.78 X10^3/uL; Monocyte% 6.4 % (0-10); NRBC Flagged by Analyzer 0 % (0-5); Neutrophil # 6.08 X10^3/uL (2.7-7.7); Neutrophil % 49.9 % (47-70); Platelet Count 413 K/mm3 (150-450); RBC Distribution Width CV 13.3 % (11.6-14.6); RBC Distribution Width SD 45.4 fl (35.1-43.9); Red Blood Count 4.86 M/mm3 (4.6-6.2); White Blood Count 12.2 K/mm3 (4.4-11.0)
[2023-12-15 16:30] VITALS: BP 209/90; PULSE 66; RESP 20; TEMP 36.6; O2SAT 99
[2023-12-15 16:36] LABS: ALB/GLOB Ratio 0.7 RATIO (0.9-2.4); AST(SGOT) 22 U/L (15-37); Alanine Aminotransfer ALT/SGPT 12 U/L (16-61); Albumin, Serum 3.1 g/dL (3.2-5.0); Alkaline Phosphatase 194 U/L (45-117); Anion Gap 8 (5-15); BUN 14 mg/dL (7-18); BUN/Creat Ratio 8.9 RATIO (10-20); Calcium,Total 9.3 mg/dL (8.5-10.1); Chloride 107 mmol/L (98-107); Creatinine, Serum 1.57 mg/dL (0.70-1.30); EST Glomerular Filtration Rate 47 mL/min (>60); Est Glom Filt Rate - Afr Amer 57 mL/min (>60); Estimated Creatinine Clearance 50.78 ml/min; Globulin 4.6 g/dL (2.2-4.2); Glucose 132 mg/dL (74-106); Lipase 69 U/L (13-75); Protein, Total 7.7 g/dL (6.4-8.2); Sodium Level 138 mmol/L (136-145)
--- NOTE | 2023-12-15 16:36 | EKG12_ITS ---
Test Reason : GENERAL Blood Pressure : / mmHG Vent. Rate : 068 BPM Atrial Rate : 068 BPM P-R Int : 170 ms QRS Dur : 110 ms QT Int : 434 ms P-R-T Axes : 054 028 038 degrees QTc Int : 461 ms Sinus rhythm with Fusion complexes Possible Inferior infarct , age undetermined Abnormal ECG Confirmed by RADHA STEELE, STEVE ([id number]), slot editor FLORI SUTHERLNAD ([id number]) on 12/17/2023 10:36:48 A M Referred By: Confirmed By:DICKSON GARCIA MD
[2023-12-15] MEDS: Ondansetron 4 MG/2 ML Vial IV (16:39)
[2023-12-15] MEDS: HYDROmorphone 1 MG/ML Syringe IV (16:40)
--- NOTE | 2023-12-15 17:00 | CT_ITS ---
INDICATION: epigastric pain EXAMINATION: CTA CHEST, ABDOMEN AND PELVIS WITH CONTRAST - TECHNIQUE: A CTA of the chest, abdomen, and pelvis is obtained with sagittal and coronal reconstructed MIP views. Three-dimensional surface rendered sequence of the thoracic and abdominal aorta was obtained. A radiation dose optimization technique was used for this scan. mL of Isovue-370. Oral contrast: None. COMPARISON: None. FINDINGS: CT CHEST: THORACIC AORTA: Thick irregular noncalcified plaque throughout the aortic arch and descending aorta. 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 No pulmonary embolism. ABDOMINAL AORTA: Occluded distal [place] abdominal aorta with an aortobifem bypass graft which is patent. At the proximal anastomosis there is a 4.5 cm saccular aneurysm as well as a short stent or stent graft extending from the infrarenal abdominal aorta into the graft. There are multiple stents within the iliac portion of the graft which appear patent. The celiac axis and superior mesenteric artery are widely patent. The inferior mesenteric artery is excluded. Single renal arteries bilaterally without evidence of renal artery stenosis. LUNGS: Mild emphysema with subpleural scarring. No noncalcified nodule or mass. Some dependent bibasilar atelectasis. MEDIASTINUM: The thyroid gland is normal. No mediastinal or hilar adenopathy. HEART: Heart is normal size. No pericardial effusion. No CAD. CT ABDOMEN AND PELVIS: LIVER: The liver enhances homogeneously. No masses identified. GALLBLADDER: Tiny layering calcified stones in the neck of the gallbladder. Stranding of the surrounding fat worrisome for acute cholecystitis. Correlation with right upper quadrant ultrasound is recommended. SPLEEN: Normal. PANCREAS: No masses or inflammation. ADRENAL GLANDS: Normal. KIDNEYS AND URETERS: The kidneys both enhance appropriately. There are normal size and shape. No hydronephrosis or nephrolithiasis. No renal masses or cysts. STOMACH: Normal. SMALL BOWEL: No abnormal distention of the small bowel. MESENTERY: No mesenteric inflammation. No ascites. COLON: Multiple diverticula the sigmoid colon consistent with diverticulosis. No bowel wall thickening or stranding surrounding fat to suggest diverticulitis. The colon otherwise is normal. There is a large fatty ileocecal valve. APPENDIX: The appendix is visualized and normal. IVC: Normal. RETROPERITONEUM: No retroperitoneal lymphadenopathy. PELVIC STRUCTURES: Normal bladder. SOFT TISSUES ABDOMEN: The anterior abdominal wall is normal. SOFT TISSUE CHEST: The extrathoracic soft tissues are normal. BONES: No fractures or significant degenerative disease. CT/CTA Chst, Abd, Pel W and/or WO IMPRESSION: Suspect acute cholecystitis and correlation with right quadrant ultrasound is recommended. Thick irregular noncalcified plaque throughout the aortic arch and descending aorta but no aortic dissection. Occluded proximal left subclavian artery. No pulmonary embolism. Occluded distal [place] abdominal aorta and iliac arteries with an aortobifem bypass graft. 4.5 cm saccular aneurysm at the junction of the infrarenal abdominal aorta and the graft with a short stent or stent graft which is patent. Stents within the iliac portion of the graft which appear widely patent. Electronically Signed: Doug Fields MD at 17:52 EDT ,
[2023-12-15] MEDS: 0.9% Normal Saline (1000mL) 1,000 ML 999 ML IV (17:19)
[2023-12-15 17:23] LABS: Troponin-I HS 16 pg/mL (3.0-78.0)
[2023-12-15 17:27] VITALS: BP 183/65; PULSE 71; RESP 19; O2SAT 93
[2023-12-15 17:56] VITALS: BMI 28.0
--- NOTE | 2023-12-15 17:59 | US_ITS ---
STUDY: ABDOMINAL ULTRASOUND - RIGHT UPPER QUADRANT REASON FOR VISIT: Male, 68 years old ruq pain TECHNIQUE: Ultrasound evaluation of the right upper quadrant was performed with real-time and static ag-scale imaging. TECHNICAL QUALITY: Limited. Examination limited due to the patient?s condition. COMPARISON: CT scan of the same day, previous ultrasound 10/31/2023. FINDINGS: Liver: The liver measures 14 cm. There is normal echogenicity of the liver. The bile ducts are within normal limits. There is hepatic color flow. The direction of portal flow is hepatopetal. There is no demonstrated mass lesion. Gallbladder: Normal distended gallbladder. The gallbladder wall measures 4 mm. There is a negative sonographic Rojo''s sign. There is no pericholecystic fluid. There are multiple echogenic structures within the gallbladder, consistent with multiple tiny gallstones. Common Bile Duct (C.B.D.): The common bile duct measures 4 mm. Pancreas: There is nonvisualization of the pancreas. Right Kidney: Normal size of the right kidney. The right kidney measures 9.6 cm. Normal renal cortex. The right cortex measures 1.3 cm. There is no demonstrated renal mass or cyst. There is no right hydronephrosis. US/Gallbladder IMPRESSION: Limited as above. Cholelithiasis. Electronically Signed: Kalin Acevedo MD at 19:27 EDT ,
[2023-12-15 19:00] VITALS: BP 204/88; PULSE 74; RESP 20; O2SAT 94
[2023-12-15 19:56] LABS: Bacteria 0 SEEN /hpf (None Seen); Mucous, Urine 0 SEEN /hpf (<or=2+); Red Blood Cells-Urine 0 SEEN /hpf (0-5); White Blood Cells 0 SEEN /hpf (0-5)
[2023-12-15 19:58] LABS: Color, Urine Yellow (Yellow); Glucose, Dipstick Normal (Normal); Ketone-Dipstick Negative (Negative); Leukocyte Esterase-Dipstick Negative /ul (Negative); Nitrite-Dipstick Negative (Negative); Occult Blood-Urine Negative /ul (Negative); Protein-Dipstick 15 mg/dl (Negative); Urine Bilirubin Dipstick Negative (Negative); Urine Clarity Clear (Clear); Urine Urobilinogen 1 mg/dl (Normal)
[2023-12-15] MEDS: HYDROmorphone 0.5 MG/0.5 ML SYRINGE IV (19:58)
[2023-12-15 20:14] LABS: Squamous Epithelial Cells - UA 0-5 SEEN /hpf (0-5)
[2023-12-15 21:00] VITALS: BP 194/87; BP 204/88; PULSE 74; PULSE 75; RESP 18; RESP 20; TEMP 36.6; O2SAT 91; O2SAT 94
--- NOTE | 2023-12-15 21:28 | EDS_ITS ---
HPI HPI - GI History of Present Illness Chief Complaint: Abd Pain Narrative Narrative: 68-year-old male presenting with epigastric pain. He states has been ongoing for couple of days. He has had it in the past. Patient also has history of mesenteric ischemia, abdominal aortic aneurysm, GERD. Patient states that the pain is constant and it is sharp in nature. Denies fevers. Denies constipation or diarrhea. Patient does state that he had spaghetti and sloppy Kevyn's back to back prior to the pain starting. He states he does not take his PPI at home. He does have nausea associated with the pain. 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 Hyperlipidemia Cardiomyopathy PAD (peripheral artery disease) CAD in [place] artery NSTEMI (non-ST elevated myocardial infarction) Essential hypertension Heart disease Arthritis HTN (hypertension) Home Medications ?Medication ?Instructions ?Recorded ?Last Taken ?Type clopidogrel 75 mg tablet (Plavix) 75 mg PO QDAY 07/24/17 10/31/23 History aspirin 81 mg tablet,delayed 81 mg PO DAILY@0800 01/30/19 10/31/23 History release atorvastatin 80 mg tablet 80 mg PO QHS 02/16/19 10/30/23 History metoprolol tartrate 25 mg tablet 25 mg PO BID #180 tabs 02/25/19 10/31/23 Rx lisinopril 5 mg tablet 5 mg PO QHS blood pressure 08/08/19 10/30/23 History nitroglycerin 0.4 mg sublingual 0.4 mg sublingual Q5-15M PRN Pain, 08/08/19 Unknown History tablet Mild pantoprazole 40 mg tablet,delayed 40 mg PO DAILY GERD 03/31/21 10/31/23 History release ondansetron 4 mg disintegrating 4 mg PO Q8H PRN PRN Nausea #20 tabs 10/31/23 Unknown Rx tablet omeprazole 40 mg capsule,delayed 40 mg PO DAILY #30 caps 12/15/23 Unknown Rx release sucralfate 100 mg/mL oral 10 ml PO BID PRN epigastric pain 12/15/23 Unknown Rx suspension (Carafate) #300 mL Allergy/AdvReac Type Severity Reaction Status Date / Time Sulfa (Sulfonamide Allergy Other Verified 12/15/23 15:30 Antibiotics) Family History Father CAD (coronary artery disease) Mother Cancer CAD (coronary artery disease) Surgical History Presence of coronary angioplasty implant and graft (~06/08/19) History of coronary artery bypass surgery (~2000) Abdominal aortic aneurysm without rupture S/P PTCA (percutaneous transluminal coronary angioplasty) History of open heart surgery History of nsqwv-[id number]-lgtufmr bypass Social History Smoking Status: Current some day smoker tobacco type: cigarettes alcohol intake: current alcohol intake frequency: a few times a week Alcohol type: beer and hard liquor substance use type: does not use ROS ROS ED Constitutional Constitutional ED: Denies chills, fever(s) or sweats Eyes Eyes: Denies blurry vision or change in vision ENT ENT ED: Denies ear pain or sore throat Cardiovascular Cardiovascular: Denies chest pain, palpitations or racing heartbeat Respiratory/Chest Respiratory/Chest: Denies cough, dyspnea or sputum Gastrointestinal Gastrointestinal: Reports abdominal pain and nausea; Denies constipation, diarrhea or vomiting Genitourinary Genitourinary ED: Denies dysuria, hematuria or urinary frequency Musculoskeletal Musculoskeletal: Denies arthralgias, myalgias or neck pain Integumentary Denies abscess, Abrasions or rash Neurologic Neurologic: Denies headache(s), paresthesias or weakness Psychiatric Psychiatric: Denies anxiety, depression, suicidal ideation or suicidal thoughts Endocrine Endocrinology: Denies polydipsia or polyuria EXAM Physical Exam Const Vital Signs: 12/15/23 15:27 12/15/23 15:30 12/15/23 16:30 Temperature 97.9 F 98 F 98 F Temperature Source Temporal Oral Oral Pulse Rate 71 61 66 Respiratory Rate 22 H 20 H 20 H Blood Pressure 191/133 H 197/81 H 209/90 H Blood Pressure Mean 152 119 129 Pulse Ox 98 99 99 Oxygen Delivery Method Room Air Room Air Room Air 12/15/23 17:27 12/15/23 19:00 12/15/23 21:00 Temperature 97.8 F Temperature Source Temporal Pulse Rate 71 74 75 Respiratory Rate 19 H 20 H 18 Blood Pressure 183/65 H 204/88 H 194/87 H Blood Pressure Mean 104 126 122 Pulse Ox 93 94 91 Oxygen Delivery Method Room Air Room Air 12/15/23 21:00 Temperature 98 F Temperature Source Pulse Rate 74 Respiratory Rate 20 H Blood Pressure 204/88 H Blood Pressure Mean 126 Pulse Ox 94 Oxygen Delivery Method Positive well nourished General Appearance ED: NAD; Negative for pallor HEENT Reports moist mucous membranes Eyes PERRL and EOMs intact bilaterally Neck no lymphadenopathy Resp normal respiratory effort and clear to auscultation bilaterally Auscultation: Negative for rales, rhonchi or wheezes Cardio regular rate and regular rhythm GI Palpation: tender epigastric Neuro CN's II-XII intact bilaterally and moves all extremities Sensorium / Orientation: alert Psych mental status grossly normal and thought process normal Skin General Skin Exam: Negative for jaundice or pallor MDM MDM MDM Narrative Medical decision making narrative: 68-year-old male presenting with abdominal pain. It is in the epigastric region. IV was established. Patient was given Dilaudid and Zofran. He has not Rojo sign patient presenting with right flank pain. Differential includes colitis, diverticulitis, gastritis, pancreatitis, acute cholecystitis, constipation, appendicitis, UTI, pyelonephritis, calculi, ureteral calculi, obstruction, malignancy, dehydration, electrolyte abnormalities, ischemic colitis. Also given the location ACS as part of differential. Will obtain EKG and high-sensitivity troponin. EKG shows a normal sinus rhythm at a rate of 68 bpm without sign of ischemic change as interpreted by myself. High-sensitivity troponin is 16 and since he had this for days and only needs a delta troponin. CBC will be obtained to assess white blood cell count, hemoglobin, platelets. CMP to assess renal function, electrolytes, liver function, glucose. Lipase to assess for pancreatitis. Urinalysis to assess for UTI. CBC shows mild white blood cell count of 12.2. Hemoglobin 14.2. Platelets are normal at 413. Creatinine slightly elevated 1.57. Patient was given IV fluids. LFTs unremarkable with exception of an alkaline phosphatase of 194 however this has been elevated for him previously. Lipase is normal. Urinalysis negative for infection. Lactic acid was obtained and is 2 which is normal. Patient was given a second dose of Dilaudid. CTA of the chest abdomen pelvis was obtained due to the location shows concern for inflammation of the gallbladder and some stranding there. I recommended an ultrasound of the right upper quadrant which I did just shows gallstones and with normal LFTs. Reviewed the case with Dr. Enamorado he does not believe it is cholecystitis. At this point the patient states that he wants to go home his pain is controlled. Over his diet is I feel some of this may be related to gastritis where the location of the pain is. Will going to start him back on a PPI and I gave him Carafate as needed. We went ove r diet changes. Return precautions discussed. Impression: 1. Epigastric pain 2. Nausea 3. Gastritis History & Record Review Discussion w/independent historian: Significant other Lab Data Labs: Laboratory Results - last 24 hr 12/15/23 12/15/23 12/15/23 15:40 19:37 19:50 WBC 12.2 H RBC 4.86 Hgb 14.2 Hct 45.3 MCV 93.2 MCH 29.2 MCHC 31.3 L RDW Std Deviation 45.4 H RDW Coeff of [place] 13.3 Plt Count 413 MPV 9.7 Immature Gran % (Auto) 1.500 H Neut % (Auto) 49.9 Lymph % (Auto) 37.5 [place] % (Auto) 6.4 Eos % (Auto) 3.8 Baso % (Auto) 0.9 Absolute Neuts (auto) 6.1 Absolute Lymphs (auto) 4.57 H Nucleated RBC % 0 Sodium 138 Potassium 4.0 Chloride 107 Carbon Dioxide 23.0 Anion Gap 8 BUN 14 Creatinine 1.57 H Estim Creat Clear Calc 50.78 Est GFR (MDRD) Af Amer 57 L Est GFR (MDRD) Non-Af 47 L BUN/Creatinine Ratio 8.9 L Glucose 132 H Lactic Acid 2.0 Calcium 9.3 Total Bilirubin 0.60 AST 22 ALT 12 L Alkaline Phosphatase 194 H Troponin I High Sens 16 Total Protein 7.7 Albumin 3.1 L Globulin 4.6 H Albumin/Globulin Ratio 0.7 L Lipase 69 Urine Color Yellow Urine Clarity Clear Urine pH 5.0 Ur Specific [place] 1.010 Urine Protein 15 H Urine Glucose (UA) Normal Urine Ketones Negative Urine Occult Blood Negative Urine Nitrite Negative Urine Bilirubin Negative Urine Urobilinogen 1 H Ur Leukocyte Esterase Negative Urine RBC 0 SEEN Urine WBC 0 SEEN Ur Squamous Epith Cells 0-5 SEEN Urine Bacteria 0 SEEN Urine Mucus 0 SEEN Radiography Diagnostic Testing: Clinical Impression(s) from Imaging Studies Chest/Abdomen/Pelvis CTA 12/15/23 17:00 IMPRESSION: Suspect acute cholecystitis and correlation with right quadrant ultrasound is recommended. Thick irregular noncalcified plaque throughout the aortic arch and descending aorta but no aortic dissection. Occluded proximal left subclavian artery. No pulmonary embolism. Occluded distal [place] abdominal aorta and iliac arteries with an aortobifem bypass graft. 4.5 cm saccular aneurysm at the junction of the infrarenal abdominal aorta and the graft with a short stent or stent graft which is patent. Stents within the iliac portion of the graft which appear widely patent. Electronically Signed: Doug Fields MD at 17:52 EDT , Gallbladder Ultrasound 12/15/23 17:59 IMPRESSION: Limited as above. Cholelithiasis. Electronically Signed: Kalin Acevedo MD at 19:27 EDT , Discharge Plan Triage Chief Complaint: Abd Pain Other Complaint: Nausea/Vomiting ED Provider: Nomi Garcia Dx/Rx/DC Orders Instructions: ED Abdominal Pain Unkn Cause Male... Prescriptions: New omeprazole 40 mg capsule,delayed release(DR/EC) 40 mg PO DAILY Qty: 30 0RF sucralfate [Carafate] 100 mg/mL suspension 10 ml PO BID PRN (Reason: epigastric pain) Qty: 300 0RF No Action clopidogrel [Plavix] 75 mg tablet 75 mg PO QDAY atorvastatin 80 mg tablet 80 mg PO QHS nitroglycerin 0.4 mg tablet, sublingual 0.4 mg SUBLINGUAL Q5-15M PRN (Reason: Pain, Mild) Rx Instructions: until response; do not exceed 3 doses per episode lisinopril 5 mg tablet 5 mg PO QHS aspirin 81 MG tablet 81 mg PO DAILY@0800 pantoprazole 40 mg tablet,delayed release (DR/EC) 40 mg PO DAILY ondansetron 4 mg tablet,disintegrating 4 mg PO Q8H PRN PRN (Reason: Nausea) Qty: 20 0RF metoprolol tartrate 25 mg tablet 25 mg PO BID Qty: 180 3RF Primary Care Provider: Annika Villasenor Referrals: Annika Villasenor MD [Primary Care Provider] - Print Language: [place]se Disposition Disposition: Home, Self Care Discharge Date/Time: 12/15/23 21:17
[2023-12-15 23:53] LABS: Reflex Lactate? Y
== END 2023-12-15 21:17 | disposition home or self-care (01) ==
PROVIDERS: Emergency Provider Student in an Organized Health Care Education/Training Program; PCP Family Medicine; Visit Provider Student in an Organized Health Care Education/Training Program
DX: K29.70 Gastritis, unspecified, without bleeding (principal); I42.9 Cardiomyopathy, unspecified; R10.13 Epigastric pain; I25.10 Atherosclerotic heart disease of native coronary artery without angina pectoris; E78.5 Hyperlipidemia, unspecified; K80.20 Calculus of gallbladder without cholecystitis without obstruction; I10 Essential (primary) hypertension; K21.9 Gastro-esophageal reflux disease without esophagitis; I25.2 Old myocardial infarction; F17.210 Nicotine dependence, cigarettes, uncomplicated; Z79.82 Long term (current) use of aspirin; Z79.02 Long term (current) use of antithrombotics/antiplatelets; Z79.899 Other long term (current) drug therapy; Z95.1 Presence of aortocoronary bypass graft; Z95.5 Presence of coronary angioplasty implant and graft
CPT/HCPCS: 71275; 74174; 76705; 80053; 81001; 83605; 83690; 84484; 85025; 93005; 96361; 96374; 96375; 96376; 99283; J7030; Q9967; A4216; J2405

== ENCOUNTER → 2024-01-06 | Outpatient (CLI) | payer MEDICARE, SELFPAY ==
[2019-08-08 14:05] VITALS: BMI 27.6
--- NOTE | 2024-01-06 14:31 | RAD_ITS ---
STUDY: X-RAY CHEST REASON FOR EXAM: Male, 68 years old. Long-term drug therapy. TECHNIQUE: Frontal and lateral views of the chest on 3 images. COMPARISON: July 04, 2019 FINDINGS: Mild hyperinflation with scattered interstitial prominence unchanged. There is no demonstrated pleural abnormality. Mild cardiomegaly with sternotomy wires unchanged. Normal mediastinum and chad. Normal visualized pulmonary arteries. Normal visualized aortic arch and descending thoracic aorta. Normal visualized thoracic spine. Normal visualized ribs, clavicles, and shoulders. No abnormality of the visualized soft tissue structures of the upper abdomen. RAD/Chest PA and Lateral IMPRESSION: Stable chest with no acute or active cardiopulmonary disease. Electronically Signed: John Vega MD at 15:42 EDT ,
[2024-01-06 18:01] LABS: Absolute Lymphocyte Count 3.56 X10^3/uL (0.83-4.51); Absolute Neutrophil Count 6.4 X10^3/uL (2.0-7.7); Basophil% 0.9 % (0-1); Eosinophil# 0.43 X10^3/uL; Eosinophils% 3.9 % (0-5); Hematocrit 44.6 % (40-54); Hemoglobin 13.8 g/dL (13.0-16.5); Lymphocyte # 3.56 X10^3/ul (0.83-4.51); Lymphocyte % 31.9 % (19-41); Mean Corp Hgb Conc 30.9 g/dL (32-36); Mean Corpuscular Hgb 29.1 pg (27.0-32.0); Mean Corpuscular Volume 94.1 fL (80-94); Mean Platelet Vol. 9.7 fl (6.2-12.0); Monocyte# 0.55 X10^3/uL; Monocyte% 4.9 % (0-10); NRBC Flagged by Analyzer 0 % (0-5); Neutrophil # 6.38 X10^3/uL (2.7-7.7); Neutrophil % 57.1 % (47-70); Platelet Count 391 K/mm3 (150-450); RBC Distribution Width CV 14.1 % (11.6-14.6); RBC Distribution Width SD 48.8 fl (35.1-43.9); Red Blood Count 4.74 M/mm3 (4.6-6.2); White Blood Count 11.2 K/mm3 (4.4-11.0)
[2024-01-06 18:18] LABS: Erythrocyte Sedimentation Rate 43 mm/hr (0-20)
[2024-01-06 18:56] LABS: ALB/GLOB Ratio 0.7 RATIO (0.9-2.4); AST(SGOT) 17 U/L (15-37); Alanine Aminotransfer ALT/SGPT 23 U/L (16-61); Alkaline Phosphatase 185 U/L (45-117); Anion Gap 5 (5-15); BUN 13 mg/dL (7-18); BUN/Creat Ratio 8.9 RATIO (10-20); Calcium,Total 8.6 mg/dL (8.5-10.1); Chloride 110 mmol/L (98-107); Creatinine, Serum 1.46 mg/dL (0.70-1.30); EST Glomerular Filtration Rate 51 mL/min (>60); Est Glom Filt Rate - Afr Amer 62 mL/min (>60); Globulin 4.6 g/dL (2.2-4.2); Glucose 101 mg/dL (74-106); Hepatitis B Surface Antibody Non-Reactive; Hepatitis B Surface Antigen Non-Reactive (Nonreactive); Hepatitis C Antibody Non-Reactive (Nonreactive); Potassium 4.5 mmol/L (3.5-5.1); Protein, Total 7.6 g/dL (6.4-8.2); Sodium Level 139 mmol/L (136-145)
[2024-01-09 10:42] LABS: ANTINUCLEAR ANTIBODIES DIRECT Negative (Negative); CCP IgG Antibodies > 250 units (0-19); QNTFERON TB Mitogen Value > 10.00 IU/mL (.); QNTFERON TB Nil Value 0.01 IU/mL (.); QNTFERON TB1+ Ag Value 0.02 IU/mL (.); QNTFERON TB2+ Ag Value 0.01 IU/mL (.); QNTIFERON TB Positive Criteria Negative (Negative)
== END | disposition home or self-care (01) ==
LOC: MTLAB 14:30
PROVIDERS: PCP Family Medicine; Referring Provider Internal Medicine Rheumatology; Visit Provider Internal Medicine Rheumatology
DX: M05.79 Rheumatoid arthritis with rheumatoid factor of multiple sites without organ or systems involvement (principal); Z79.899 Other long term (current) drug therapy
CPT/HCPCS: 36415; 71046; 80053; 85025; 85652; 86038; 86140; 86200; 86431; 86480; 86706; 86803; 87340

== ENCOUNTER 2024-02-22 05:49 | Emergency (ER) | payer MEDICARE, SELFPAY ==
[2019-08-08 14:05] VITALS: BMI 27.6
[2024-02-22 05:50] VITALS: BP 208/84; PULSE 67; RESP 16; TEMP 36.6; O2SAT 97; BMI 30.9
[2024-02-22 05:53] VITALS: BP 208/84; PULSE 67; RESP 18; TEMP 36.6; O2SAT 97
--- NOTE | 2024-02-22 06:11 | ED.VIS.GI ---
HPI HPI - GI History of Present Illness Chief Complaint: Abd Pain Informant: patient Abdominal Pain/Flank Pain Onset: Hours (5) Context: Gradual Onset Timing: Continuous Quality: Aching Location: Epigastric Current Severity: Severe Maximum Severity: Severe Worsened by: Nothing Relieved by: Nothing Nausea/Vomiting/Emesis GI Symptom: Positive for Nausea and Vomiting Quality: Positive for Nonbilious; Negative for Blood streaks or Coffee ground Episodes: 1 Diarrhea/Melena/Hematochezia GI Symptom: Negative for Diarrhea, Melena or Hematochezia Associated Symptoms Associated Symptoms: Negative for Dysuria, Frequency or Hematuria Narrative Narrative: 60-year-old male presenting with midepigastric pain without radiation. Subsided with vomiting. Started about 1:30 in the morning. States he has had this before and no one could give him a definitive answer. He has had a scope and a pill endoscopy that were negative. States every couple months he seems to get this, seems to last until he gets a shot for pain and then goes away and comes back months later. He has had aortic bypass and CABG in the past. He denies any other new symptoms. No melena or bright red blood per rectum or trouble urinating. Pain does not radiate into the back or the chest. [facility] Medical History Hypertension Personal history of colonic polyps Ischemic colitis History of pneumonia Presence of stent in coronary artery (~06/08/19) Old myocardial infarction Atherosclerotic heart disease of [place] coronary artery without angina pectoris Hyperlipidemia Cardiomyopathy PAD (peripheral artery disease) CAD in [place] artery NSTEMI (non-ST elevated myocardial infarction) Essential hypertension Heart disease Arthritis HTN (hypertension) Home Medications ?Medication ?Instructions ?Recorded ?Last Taken ?Type clopidogrel 75 mg tablet (Plavix) 75 mg PO QDAY 07/24/17 10/31/23 History aspirin 81 mg tablet,delayed 81 mg PO DAILY@0800 01/30/19 10/31/23 History release atorvastatin 80 mg tablet 80 mg PO QHS 02/16/19 10/30/23 History metoprolol tartrate 25 mg tablet 25 mg PO BID #180 tabs 02/25/19 10/31/23 Rx lisinopril 5 mg tablet 5 mg PO QHS blood pressure 08/08/19 10/30/23 History nitroglycerin 0.4 mg sublingual 0.4 mg sublingual Q5-15M PRN Pain, 08/08/19 Unknown History tablet Mild pantoprazole 40 mg tablet,delayed 40 mg PO DAILY GERD 03/31/21 10/31/23 History release ondansetron 4 mg disintegrating 4 mg PO Q8H PRN PRN Nausea #20 tabs 10/31/23 Unknown Rx tablet omeprazole 40 mg capsule,delayed 40 mg PO DAILY #30 caps 12/15/23 Unknown Rx release hydroxychloroquine 200 mg tablet 200 mg PO BID 02/22/24 Unknown History Allergy/AdvReac Type Severity Reaction Status Date / Time Sulfa (Sulfonamide Allergy Other Verified 12/15/23 15:30 Antibiotics) Family History Father CAD (coronary artery disease) Mother Cancer CAD (coronary artery disease) Surgical History Presence of coronary angioplasty implant and graft (~06/08/19) History of coronary artery bypass surgery (~2000) Abdominal aortic aneurysm without rupture S/P PTCA (percutaneous transluminal coronary angioplasty) History of open heart surgery History of frlxp-[id number]-pekjrrx bypass Social History Smoking Status: Current some day smoker tobacco type: cigarettes alcohol intake: current alcohol intake frequency: a few times a week Alcohol type: beer and hard liquor substance use type: does not use ROS ROS ED Constitutional Constitutional ED: Denies chills or fever(s) Eyes Eyes: Denies change in vision or diplopia ENT ENT ED: Denies rhinorrhea or sore throat Cardiovascular Cardiovascular: Denies chest pain or palpitations Respiratory/Chest Respiratory/Chest: Denies cough or dyspnea Gastrointestinal Gastrointestinal: Reports abdominal pain, nausea and vomiting; Denies diarrhea Genitourinary Genitourinary ED: Denies dysuria or hematuria Musculoskeletal Musculoskeletal: Denies back pain or neck pain Integumentary Denies abscess or rash Neurologic Neurologic: Denies headache(s), paresthesias or weakness Psychiatric Psychiatric: Denies anxiety or suicidal thoughts EXAM Physical Exam Const Vital Signs: 02/22/24 05:50 02/22/24 05:53 02/22/24 07:50 Temperature 97.8 F 97.8 F Temperature Source Oral Oral Pulse Rate 67 67 85 Respiratory Rate 16 18 18 Blood Pressure 208/84 H 208/84 H 179/72 H Blood Pressure Mean 125 125 107 Pulse Ox 97 97 98 Oxygen Delivery Method Room Air Room Air Positive well nourished and well developed Constitutional Narrative: In pain but in no distress. General Appearance ED: well developed and NAD HEENT Reports moist mucous membranes normocephalic and atraumatic Eyes PERRL and EOMs intact bilaterally Neck full ROM and supple Resp normal respiratory effort and clear to auscultation bilaterally Cardio regular rate, regular rhythm and no murmurs GI non-distended GI Narrative: Epigastric tenderness, but no right upper or left upper quadrant tenderness, no pulsatile mass, no other areas of tenderness. Normal inspection no Lucio sign. No Garcia Valdez sign. Auscultation: normoactive bowel sounds Palpation: soft Back/Spine no CVA tenderness General Back: other FROM Extremity normal to inspection Extremity Narrative: 2+/4 bilateral DP pulses. General Extremety ED: Negative for edema, pulses abnormal or tenderness General Extremity: Negative for edema or pulses abnormal Neuro oriented x3, CN's II-XII intact bilaterally and no sensory deficits noted Sensorium / Orientation: awake and alert Motor Exam: strength 5/5 throughout Skin no rashes or lesions noted and no wounds MDM MDM MDM Narrative Medical decision making narrative: I briefly reviewed some recent records of when he was here for this before. Both times he had CT angiography of the abdomen/pelvis followed by gallbladder ultrasound because this is CT was interpreted as possible cholecystitis but the ultrasound did not show that, just cholelithiasis. The ER physician attempted to admit him last time but surgery thought he needed to be transferred, then the patient refused to be transferred decided to go home. He states he since followed up with surgery as an outpatient at [facility] and they said that he did not need his gallbladder out at the time of evaluation. 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 There is no sonographic Rojo's when he takes a deep breath then, however his gallbladder is difficult to visualize due to it being beneath his rib cage even when inspiring deeply. From looking at past scan results and presentations I think reasonable to obtain CT angiography of the abdomen and pelvis tonight, to rule out a problem with the saccular aneurysm at the proximal aspect of his aortic bypass graft. That, and also to rule out other vascular occlusions in his abdomen such as celiac trunk that could be causing this pain. I reviewed the images and the result which I agree with. There are no acute vascular occlusions and the saccular aneurysm at the proximal aspect of his bypass is stable at 4.7 cm. He has a vascular visit from last year where this was evaluated, they are following it but he was referred to tertiary care to see if that should be repaired. I do not think it is an acute issue or the reason for his pain right now. There again is concerned about the possibility of Roney cholecystic fluid and small gallstones. In looking back at his prior imaging, it looks similar. His renal function is better than usual right now, his lactate was slightly elevated, hence ruling out an acute vascular occlusion, his white blood count is 11.6 which is similar to how he usually presents as well. On reexamination he is pain-free. I reexamined him and his epigastrium is nontender and his right upper quadrant is nontender. He feels well. I discussed with surgery Dr. Waddell. He recommends trialing the patient with food and beverage, and if he is still pain-free, he would support sending the patient home and have him follow-up as an outpatient for evaluation for possible HIDA scan. I discussed this with the patient and his daughter and they are comfortable with that plan. History & Record Review Additional record(s) reviewed:: Prior ED visit and Prior labs Lab Data Attestation: I reviewed the patient's lab results. Labs: Laboratory Results - last 24 hr 02/22/24 02/22/24 06:00 06:15 WBC 11.6 H RBC 4.79 Hgb 14.0 Hct 44.6 MCV 93.1 MCH 29.2 MCHC 31.4 L RDW Std Deviation 50.5 H RDW Coeff of [place] 14.9 H Plt Count 292 MPV 9.8 Immature Gran % (Auto) 1.800 H Neut % (Auto) 64.0 Lymph % (Auto) 25.3 [place] % (Auto) 5.8 Eos % (Auto) 2.1 Baso % (Auto) 1.0 Absolute Neuts (auto) 7.4 Absolute Lymphs (auto) 2.95 Nucleated RBC % 0 Sodium 139 Potassium 4.4 Chloride 108 H Carbon Dioxide 22.0 Anion Gap 9 BUN 12 Creatinine 1.37 H Estim Creat Clear Calc 60.53 Est GFR (MDRD) Af Amer 66 Est GFR (MDRD) Non-Af 55 L BUN/Creatinine Ratio 8.8 L Glucose 125 H Lactic Acid 2.6 H* Calcium 8.5 Total Bilirubin 0.60 AST 18 ALT 14 L Alkaline Phosphatase 132 H Total Protein 6.9 Albumin 3.0 L Globulin 3.9 Albumin/Globulin Ratio 0.8 L Lipase 48 Radiography Diagnostic Testing: Clinical Impression(s) from Imaging Studies Abdomen/Pelvis CTA 02/22/24 06:38 IMPRESSION: 1. Pericholecystic fluid suggestive of acute cholecystitis associated with small calcified gallstones. 2. Stable 4.7 cm saccular aneurysm of the infrarenal abdominal aorta. Electronically Signed: Andrés Raphael MD at 8:23 EDT , Management Discussion w/another healthcare provider: Quality Improvement Analyst (Surgery Dr. Waddell) Discharge Plan Triage Chief Complaint: Abd Pain ED Provider: Mihir Zavaleta Dx/Rx/DC Orders Clinical Impression: Acute epigastric pain, Abdominal aortic aneurysm without rupture, CKD (chronic kidney disease) Instructions: ED Epigastric Pain Uncertain Cause Prescriptions: No Action clopidogrel [Plavix] 75 mg tablet 75 mg PO QDAY atorvastatin 80 mg tablet 80 mg PO QHS nitroglycerin 0.4 mg tablet, sublingual 0.4 mg SUBLINGUAL Q5-15M PRN (Reason: Pain, Mild) Rx Instructions: until response; do not exceed 3 doses per episode lisinopril 5 mg tablet 5 mg PO QHS aspirin 81 MG tablet 81 mg PO DAILY@0800 pantoprazole 40 mg tablet,delayed release (DR/EC) 40 mg PO DAILY ondansetron 4 mg tablet,disintegrating 4 mg PO Q8H PRN PRN (Reason: Nausea) Qty: 20 0RF hydroxychloroquine 200 mg tablet 200 mg PO BID omeprazole 40 mg capsule,delayed release(DR/EC) 40 mg PO DAILY Qty: 30 0RF metoprolol tartrate 25 mg tablet 25 mg PO BID Qty: 180 3RF Primary Care Provider: Annika Villasenor Referrals: Jarred Waddell MD [Med Staff - Active Staff] - Print Language: Bulgarian
[2024-02-22] MEDS: 0.9% Normal Saline (1000mL) 1,000 ML 125 ML IV (06:16)
[2024-02-22] MEDS: Morphine 4 MG/ML Syringe IV (06:16)
[2024-02-22] MEDS: Metoclopramide 10 MG/2 ML Vial 5 MG IV (06:16)
[2024-02-22 06:20] LABS: Absolute Lymphocyte Count 2.95 X10^3/uL (0.83-4.51); Absolute Neutrophil Count 7.4 X10^3/uL (2.0-7.7); Basophil# 0.12 X10^3/uL; Eosinophil# 0.24 X10^3/uL; Eosinophils% 2.1 % (0-5); Hematocrit 44.6 % (40-54); Lymphocyte # 2.95 X10^3/ul (0.83-4.51); Lymphocyte % 25.3 % (19-41); Mean Corp Hgb Conc 31.4 g/dL (32-36); Mean Corpuscular Hgb 29.2 pg (27.0-32.0); Mean Corpuscular Volume 93.1 fL (80-94); Mean Platelet Vol. 9.8 fl (6.2-12.0); Monocyte# 0.68 X10^3/uL; Monocyte% 5.8 % (0-10); NRBC Flagged by Analyzer 0 % (0-5); Neutrophil # 7.44 X10^3/uL (2.7-7.7); Platelet Count 292 K/mm3 (150-450); RBC Distribution Width CV 14.9 % (11.6-14.6); RBC Distribution Width SD 50.5 fl (35.1-43.9); Red Blood Count 4.79 M/mm3 (4.6-6.2); White Blood Count 11.6 K/mm3 (4.4-11.0)
--- NOTE | 2024-02-22 06:38 | CT_ITS ---
EXAM: CT ANGIOGRAPHY ABDOMEN AND PELVIS WITHOUT AND WITH INTRAVENOUS CONTRAST CLINICAL INDICATION: epigastric pain, AAA TECHNIQUE: Helically acquired angiography images were obtained of the abdomen and pelvis without and with intravenous contrast. This CT exam was performed using one or more of the following dose reduction techniques: automated exposure control, adjustment of the mA and/or kV according to patient size, and/or use of iterative reconstruction technique. MIP reconstructed images were created and reviewed. CONTRAST: IV 100mL [id number] COMPARISON: CTA Abdomen Pelvis dated 12/15/2023 FINDINGS: VASCULATURE: AORTA: Stable 4.7 cm saccular infrarenal abdominal aortic aneurysm arises from the inferior most aspect of the aortic stent graft. [place] distal aorta and proximal iliac arteries again noted to be chronically occluded. The distal aortobiiliac graft is patent. No dissection. CELIAC TRUNK AND MESENTERIC ARTERIES: Patent celiac and superior mesenteric arteries. Occlusion of the KADY again noted. RENAL ARTERIES: No acute findings. No occlusion or significant stenosis. No dissection. ILIAC ARTERIES: Bilateral iliac artery stents remain patent. No occlusion or significant stenosis. LOWER THORAX: Centrilobular emphysematous changes of the lung bases noted as well as interstitial thickening which may represent edema or fibrosis. No cardiomegaly. No significant pericardial effusion. ABDOMEN: LIVER: Normal. Homogeneous. No focal mass. GALLBLADDER AND BILE DUCTS: Pericholecystic fluid raises possibility of acute cholecystitis. Small calcified stones again noted within the gallbladder. PANCREAS: Normal. No focal cystic or solid mass. SPLEEN: Normal. Normal size without focal cystic or solid mass. ADRENALS: Normal. No nodules. KIDNEYS AND URETERS: Kidneys within the range of normal size with element of diffuse cortical thinning. No hydronephrosis. Normal renal size and position. STOMACH AND BOWEL: Mild stool burden within the large bowel. No focal inflammatory change. PELVIS: APPENDIX: Appendix is visualized and normal in appearance. BLADDER: Normal. REPRODUCTIVE: Unremarkable as visualized. No mass. ABDOMEN and PELVIS: INTRAPERITONEAL SPACE: Normal. No ascites or other fluid collection. No free air. BONES/JOINTS: No suspicious lytic or blastic abnormality. SOFT TISSUES: Stable small cystic appearing subcutaneous lesion again seen within the midline adjacent to the xiphoid process. No discrete abdominal or pelvic wall hernia. LYMPH NODES: Normal. No enlarged lymph nodes. CT/CTA Abd/Pelvis W/WO Contrast IMPRESSION: 1. Pericholecystic fluid suggestive of acute cholecystitis associated with small calcified gallstones. 2. Stable 4.7 cm saccular aneurysm of the infrarenal abdominal aorta. Electronically Signed: Andrés Raphael MD at 8:23 EDT ,
[2024-02-22 06:49] LABS: ALB/GLOB Ratio 0.8 RATIO (0.9-2.4); AST(SGOT) 18 U/L (15-37); Alanine Aminotransfer ALT/SGPT 14 U/L (16-61); Alkaline Phosphatase 132 U/L (45-117); Anion Gap 9 (5-15); BUN 12 mg/dL (7-18); BUN/Creat Ratio 8.8 RATIO (10-20); Calcium,Total 8.5 mg/dL (8.5-10.1); Chloride 108 mmol/L (98-107); Creatinine, Serum 1.37 mg/dL (0.70-1.30); EST Glomerular Filtration Rate 55 mL/min (>60); Est Glom Filt Rate - Afr Amer 66 mL/min (>60); Estimated Creatinine Clearance 60.53 ml/min; Globulin 3.9 g/dL (2.2-4.2); Glucose 125 mg/dL (74-106); Lipase 48 U/L (13-75); Potassium 4.4 mmol/L (3.5-5.1); Protein, Total 6.9 g/dL (6.4-8.2); Sodium Level 139 mmol/L (136-145)
[2024-02-22 07:03] LABS: Lactic Acid 2.6 mmol/L (0.4-1.9)
[2024-02-22 07:50] VITALS: BP 179/72; PULSE 85; RESP 18; O2SAT 98
[2024-02-22] MEDS: HYDROmorphone 1 MG/ML Syringe IV (08:00)
[2024-02-22 09:00] VITALS: BP 145/60; PULSE 76; RESP 18; O2SAT 95
[2024-02-22 10:21] LABS: Reflex Lactate? Y
[2024-02-22 11:00] VITALS: BP 187/69; PULSE 84; RESP 18; O2SAT 96
[2024-02-22 11:33] VITALS: BP 175/67; PULSE 58; RESP 16; TEMP 35.9; O2SAT 96
== END 2024-02-22 11:35 | disposition home or self-care (01) ==
PROVIDERS: Emergency Provider Emergency Medicine; PCP Family Medicine; Visit Provider Emergency Medicine
DX: R10.13 Epigastric pain (principal); I42.9 Cardiomyopathy, unspecified; I71.40 Abdominal aortic aneurysm, without rupture, unspecified; E78.5 Hyperlipidemia, unspecified; I12.9 Hypertensive chronic kidney disease with stage 1 through stage 4 chronic kidney disease, or unspecified chronic kidney disease; N18.9 Chronic kidney disease, unspecified; I25.10 Atherosclerotic heart disease of native coronary artery without angina pectoris; R11.2 Nausea with vomiting, unspecified; I25.2 Old myocardial infarction; F17.210 Nicotine dependence, cigarettes, uncomplicated; Z79.82 Long term (current) use of aspirin; Z79.02 Long term (current) use of antithrombotics/antiplatelets; Z79.899 Other long term (current) drug therapy; Z95.1 Presence of aortocoronary bypass graft
CPT/HCPCS: 74174; 80053; 83605; 83690; 85025; 96361; 96374; 96375; 99283; J7030; Q9967; A4216

== ENCOUNTER → 2024-02-29 | Outpatient (CLI) | payer MEDICARE, SELFPAY ==
[2019-08-08 14:05] VITALS: BMI 27.6
[2024-02-29 12:12] LABS: Absolute Lymphocyte Count 2.97 X10^3/uL (0.83-4.51); Absolute Neutrophil Count 5.8 X10^3/uL (2.0-7.7); Eosinophil# 0.33 X10^3/uL; Eosinophils% 3.3 % (0-5); Hematocrit 44.4 % (40-54); Hemoglobin 13.9 g/dL (13.0-16.5); Lymphocyte # 2.97 X10^3/ul (0.83-4.51); Lymphocyte % 29.6 % (19-41); Mean Corp Hgb Conc 31.3 g/dL (32-36); Mean Corpuscular Hgb 29.3 pg (27.0-32.0); Mean Corpuscular Volume 93.5 fL (80-94); Mean Platelet Vol. 9.6 fl (6.2-12.0); Monocyte# 0.67 X10^3/uL; Monocyte% 6.7 % (0-10); NRBC Flagged by Analyzer 0 % (0-5); Neutrophil # 5.84 X10^3/uL (2.7-7.7); Platelet Count 293 K/mm3 (150-450); RBC Distribution Width CV 14.6 % (11.6-14.6); RBC Distribution Width SD 50.7 fl (35.1-43.9); Red Blood Count 4.75 M/mm3 (4.6-6.2); White Blood Count 10.1 K/mm3 (4.4-11.0)
[2024-02-29 12:51] LABS: ALB/GLOB Ratio 0.8 RATIO (0.9-2.4); AST(SGOT) 15 U/L (15-37); Alanine Aminotransfer ALT/SGPT 14 U/L (16-61); Alkaline Phosphatase 150 U/L (45-117); Anion Gap 6 (5-15); BUN 14 mg/dL (7-18); BUN/Creat Ratio 8.7 RATIO (10-20); Calcium,Total 8.7 mg/dL (8.5-10.1); Chloride 108 mmol/L (98-107); Creatinine, Serum 1.61 mg/dL (0.70-1.30); EST Glomerular Filtration Rate 46 mL/min (>60); Est Glom Filt Rate - Afr Amer 55 mL/min (>60); Glucose 166 mg/dL (74-106); Potassium 4.4 mmol/L (3.5-5.1); Sodium Level 138 mmol/L (136-145)
== END | disposition home or self-care (01) ==
PROVIDERS: PCP Family Medicine; Referring Provider Internal Medicine Rheumatology; Visit Provider Internal Medicine Rheumatology
DX: M05.79 Rheumatoid arthritis with rheumatoid factor of multiple sites without organ or systems involvement (principal); Z79.899 Other long term (current) drug therapy
CPT/HCPCS: 36415; 80053; 85025

== ENCOUNTER 2024-03-05 04:50 | Emergency (ER) | payer MEDICARE, SELFPAY ==
[2019-08-08 14:05] VITALS: BMI 27.6
[2024-03-05 04:51] VITALS: BP 198/89; PULSE 66; RESP 18; TEMP 36.4; O2SAT 98; BMI 26.6
[2024-03-05 05:30] LABS: Absolute Lymphocyte Count 3.25 X10^3/uL (0.83-4.51); Absolute Neutrophil Count 7.8 X10^3/uL (2.0-7.7); Basophil# 0.08 X10^3/uL; Basophil% 0.7 % (0-1); Eosinophil# 0.35 X10^3/uL; Eosinophils% 2.9 % (0-5); Hematocrit 42.7 % (40-54); Hemoglobin 13.4 g/dL (13.0-16.5); Lymphocyte # 3.25 X10^3/ul (0.83-4.51); Lymphocyte % 26.6 % (19-41); Mean Corp Hgb Conc 31.4 g/dL (32-36); Mean Corpuscular Volume 92.4 fL (80-94); Mean Platelet Vol. 9.6 fl (6.2-12.0); Monocyte# 0.62 X10^3/uL; Monocyte% 5.1 % (0-10); NRBC Flagged by Analyzer 0 % (0-5); Neutrophil # 7.82 X10^3/uL (2.7-7.7); Neutrophil % 63.7 % (47-70); Platelet Count 316 K/mm3 (150-450); RBC Distribution Width CV 14.4 % (11.6-14.6); RBC Distribution Width SD 48.9 fl (35.1-43.9); Red Blood Count 4.62 M/mm3 (4.6-6.2); White Blood Count 12.2 K/mm3 (4.4-11.0)
--- NOTE | 2024-03-05 05:34 | EX.ED.DYSGE1 ---
HPI History of Present Illness Chief Complaint: Abd Pain Narrative Narrative: Chief complaint and HPI: Abdominal pain. 60-year-old male presents for evaluation of epigastric abdominal pain. Patient has a recurrent history of this and has been seen in our emergency department multiple times. Patient states that his abdominal pain started early this morning. He endorses nausea associated with it. He denies any fever, chills, shortness of breath, chest pain, diarrhea, constipation, dysuria. Has been eating and drinking well. He states this is the same reoccurring pain that he always has. It is not any different.Patient recently had a scope and pill endoscopy that was negative. On chart review, he was seen in our emergency department on 02/21 for similar complaints. At that time he had a CTA of the abdomen and pelvis. He has a saccular stable aneurysm at 4.7 cm. Pain improved and patient was discussed with surgery at that time. Recommendation was to follow-up for possible HIDA scan outpatient. Patient states that he has not had a HIDA scan. Review of systems: See HPI Medications: As listed on the chart Allergies: As listed on the chart PFSH: Per chart Vital signs: As listed on the chart. Reviewed. Physical exam: Gen: A&O x3, NAD Head: Normocephalic, atraumatic Eyes: No sclera icterus, conjunctiva clear ENT: Moist mucous membranes Neck: Trachea midline, No JVD CV: RRR, no murmurs, no peripheral edema Resp: Lungs CTA BL, no w/r/c GI: Abd soft, non-distended, tender to palpation in the epigastrium and slightly in RUQ, negative Rojo sign, no rebound or rigidity Musc: Full ROM, no deformity Skin: Warm, dry Neuro: Alert, oriented, grossly intact, sensation intact Psych: Cooperative, appropriate mood and affect [facility] Medical History Hypertension Personal history of colonic polyps Ischemic colitis History of pneumonia Presence of stent in coronary artery (~06/08/19) 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 Hyperlipidemia Cardiomyopathy PAD (peripheral artery disease) CAD in [place] artery NSTEMI (non-ST elevated myocardial infarction) Essential hypertension Heart disease Arthritis HTN (hypertension) Home Medications ?Medication ?Instructions ?Recorded ?Last Taken ?Type clopidogrel 75 mg tablet (Plavix) 75 mg PO QDAY 07/24/17 10/31/23 History aspirin 81 mg tablet,delayed 81 mg PO DAILY@0800 01/30/19 10/31/23 History release atorvastatin 80 mg tablet 80 mg PO QHS 02/16/19 10/30/23 History metoprolol tartrate 25 mg tablet 25 mg PO BID #180 tabs 02/25/19 10/31/23 Rx lisinopril 5 mg tablet 5 mg PO QHS blood pressure 08/08/19 10/30/23 History nitroglycerin 0.4 mg sublingual 0.4 mg sublingual Q5-15M PRN Pain, 08/08/19 Unknown History tablet Mild pantoprazole 40 mg tablet,delayed 40 mg PO DAILY GERD 03/31/21 10/31/23 History release ondansetron 4 mg disintegrating 4 mg PO Q8H PRN PRN Nausea #20 tabs 10/31/23 Unknown Rx tablet omeprazole 40 mg capsule,delayed 40 mg PO DAILY #30 caps 12/15/23 Unknown Rx release hydroxychloroquine 200 mg tablet 200 mg PO BID 02/22/24 Unknown History prednisone 10 mg tablet 10 mg PO DAILY 03/05/24 Unknown History Allergy/AdvReac Type Severity Reaction Status Date / Time Sulfa (Sulfonamide Allergy Other Verified 03/05/24 04:54 Antibiotics) Family History Father CAD (coronary artery disease) Mother Cancer CAD (coronary artery disease) Surgical History Presence of coronary angioplasty implant and graft (~06/08/19) History of coronary artery bypass surgery (~2000) Abdominal aortic aneurysm without rupture S/P PTCA (percutaneous transluminal coronary angioplasty) History of open heart surgery History of rwktf-mfvni-hskaehd bypass Social History Smoking Status: Current some day smoker tobacco type: cigarettes alcohol intake: current alcohol intake frequency: a few times a week Alcohol type: beer and hard liquor substance use type: does not use EXAM Physical Exam Const Vital Signs: 03/05/24 04:51 03/05/24 06:51 Temperature 97.6 F L Temperature Source Oral Pulse Rate 66 62 Respiratory Rate 18 18 Blood Pressure 198/89 H 177/67 H Blood Pressure Mean 125 103 Pulse Ox 98 97 Oxygen Delivery Method Room Air Room Air MDM MDM MDM Narrative Medical decision making narrative: 68-year-old male with history of recurrent epigastric abdominal pain presents for evaluation of epigastric abdominal pain. Differential diagnosis includes but is not limited to gastritis, PUD, cholecystitis, cholelithiasis, pancreatitis. Morphine, Zofran ordered for symptoms. Abdominal pain labs ordered. Given that patient just had CT abdomen and pelvis I do not think repeat CT is needed at this time. I do not have ultrasound available this evening for right upper quadrant abdominal ultrasound. CBC with mild leukocytosis of 12.2, this is similar to previous labs. CMP shows baseline creatinine. Patient has lactic acidosis of 3.6. NS bolus ordered. He has mild transaminitis with an AST of 11, ALT of 12. Alk phos is mildly elevated at 126 however this is seen on previous labs. No elevated bilirubin. Lipase unremarkable. On reexamination, patient is still having epigastric abdominal pain. He is still mildly tender in the right upper quadrant. Dilaudid ordered. Abdominal ultrasound ordered as ultrasound techs will be arriving within the next hour. Ultrasound pending at this time. Patient was signed out to oncoming ED provider. Final disposition pending results. Lab Data Labs: Laboratory Results - last 24 hr 03/05/24 03/05/24 04:58 05:48 WBC 12.2 H RBC 4.62 Hgb 13.4 Hct 42.7 MCV 92.4 MCH 29.0 MCHC 31.4 L RDW Std Deviation 48.9 H RDW Coeff of [place] 14.4 Plt Count 316 MPV 9.6 Immature Gran % (Auto) 1.000 H Neut % (Auto) 63.7 Lymph % (Auto) 26.6 [place] % (Auto) 5.1 Eos % (Auto) 2.9 Baso % (Auto) 0.7 Absolute Neuts (auto) 7.8 H Absolute Lymphs (auto) 3.25 Nucleated RBC % 0 Sodium 139 Potassium 3.8 Chloride 108 H Carbon Dioxide 24.0 Anion Gap 7 BUN 19 H Creatinine 1.37 H Estim Creat Clear Calc 53.28 Est GFR (MDRD) Af Amer 66 Est GFR (MDRD) Non-Af 55 L BUN/Creatinine Ratio 13.9 Glucose 123 H Lactic Acid 3.6 H* Calcium 9.3 Total Bilirubin 0.50 AST 11 L ALT 12 L Alkaline Phosphatase 126 H Total Protein 7.1 Albumin 3.2 Globulin 3.9 Albumin/Globulin Ratio 0.8 L Lipase 52 Discharge Plan Triage Chief Complaint: Abd Pain ED Provider: Kiran Guy Dx/Rx/DC Orders Prescriptions: No Action clopidogrel [Plavix] 75 mg tablet 75 mg PO QDAY atorvastatin 80 mg tablet 80 mg PO QHS nitroglycerin 0.4 mg tablet, sublingual 0.4 mg SUBLINGUAL Q5-15M PRN (Reason: Pain, Mild) Rx Instructions: until response; do not exceed 3 doses per episode lisinopril 5 mg tablet 5 mg PO QHS aspirin 81 MG tablet 81 mg PO DAILY@0800 pantoprazole 40 mg tablet,delayed release (DR/EC) 40 mg PO DAILY ondansetron 4 mg tablet,disintegrating 4 mg PO Q8H PRN PRN (Reason: Nausea) Qty: 20 0RF hydroxychloroquine 200 mg tablet 200 mg PO BID omeprazole 40 mg capsule,delayed release(DR/EC) 40 mg PO DAILY Qty: 30 0RF prednisone 10 mg tablet 10 mg PO DAILY metoprolol tartrate 25 mg tablet 25 mg PO BID Qty: 180 3RF Primary Care Provider: Annika Villasenor Referrals: Annika Villasenor MD [Primary Care Provider] - Print Language: Kyrgyz
[2024-03-05] MEDS: Morphine 4 MG/ML Syringe IV (05:47)
[2024-03-05] MEDS: Ondansetron 4 MG/2 ML Vial IV (05:47)
[2024-03-05 06:04] LABS: ALB/GLOB Ratio 0.8 RATIO (0.9-2.4); AST(SGOT) 11 U/L (15-37); Alanine Aminotransfer ALT/SGPT 12 U/L (16-61); Albumin, Serum 3.2 g/dL (3.2-5.0); Alkaline Phosphatase 126 U/L (45-117); Anion Gap 7 (5-15); BUN 19 mg/dL (7-18); BUN/Creat Ratio 13.9 RATIO (10-20); Calcium,Total 9.3 mg/dL (8.5-10.1); Chloride 108 mmol/L (98-107); Creatinine, Serum 1.37 mg/dL (0.70-1.30); EST Glomerular Filtration Rate 55 mL/min (>60); Est Glom Filt Rate - Afr Amer 66 mL/min (>60); Estimated Creatinine Clearance 53.28 ml/min; Globulin 3.9 g/dL (2.2-4.2); Glucose 123 mg/dL (74-106); Lipase 52 U/L (13-75); Potassium 3.8 mmol/L (3.5-5.1); Protein, Total 7.1 g/dL (6.4-8.2); Sodium Level 139 mmol/L (136-145)
--- NOTE | 2024-03-05 06:33 | US_ITS ---
HISTORY: Epigastric/RUQ abdominal pain. TECHNIQUE: [place] scale and color doppler imaging was performed of the right upper quadrant. 73 images. COMPARISON: CTA 02/22/2024. FINDINGS: LIVER: 14.7 cm in length. Homogeneous echotexture without focal lesion demonstrated. No intrahepatic ductal dilatation. MAIN PORTAL VEIN: Patent with flow in the appropriate direction. COMMON BILE DUCT: 3 mm in diameter. GALLBLADDER: Multiple gallstones extending in the gallbladder neck. 5 mm wall thickness. No pericholecystic fluid. Sonographic Rojo sign negative. PANCREAS: Not well visualized due to overlying bowel gas. RIGHT KIDNEY: 9.7 cm in length with a cortical thickness of 1.2 cm. No hydronephrosis or gross renal mass demonstrated. US/Abdomen Limited IMPRESSION: Cholelithiasis with mild gallbladder wall thickening, concerning for acute cholecystitis in the appropriate clinical setting. Electronically Signed: Joan Villa MD at 8:20 EDT ,
[2024-03-05] MEDS: HYDROmorphone 0.5 MG/0.5 ML SYRINGE IV (06:42)
[2024-03-05 06:51] VITALS: BP 177/67; PULSE 62; RESP 18; O2SAT 97
[2024-03-05 06:51] LABS: Lactic Acid 3.6 mmol/L (0.4-1.9)
[2024-03-05] MEDS: 0.9% Normal Saline (1000mL) 1,000 ML 999 ML IV (07:14)
[2024-03-05 08:09] VITALS: BP 164/62; O2SAT 92
[2024-03-05 08:43] LABS: Mucous, Urine 0 SEEN /hpf (<or=2+); Red Blood Cells-Urine 0 SEEN /hpf (0-5)
[2024-03-05 09:28] LABS: Color, Urine Yellow (Yellow); Glucose, Dipstick Normal (Normal); Ketone-Dipstick Negative (Negative); Leukocyte Esterase-Dipstick Negative /ul (Negative); Nitrite-Dipstick Negative (Negative); Occult Blood-Urine Negative /ul (Negative); Protein-Dipstick 30 mg/dl (Negative); Urine Bilirubin Dipstick Negative (Negative); Urine Clarity Clear (Clear); Urine Urobilinogen 1 mg/dl (Normal)
[2024-03-05] MEDS: Piperacil/Tazobactam 3.375 GM in 0.9% Normal Saline (50mL MB+) 50 ML IV (09:39)
[2024-03-05 09:57] LABS: Bacteria 1+ /hpf (None Seen); Hyaline Cast 0-5 SEEN /lpf (0-5); Squamous Epithelial Cells - UA 0-5 SEEN /hpf (0-5); White Blood Cells 0-5 SEEN /hpf (0-5)
[2024-03-05 09:59] LABS: Reflex Lactate? Y
== END 2024-03-05 10:35 | disposition left against medical advice (07) ==
PROVIDERS: Emergency Provider Surgery; PCP Family Medicine; Visit Provider Surgery
DX: R10.11 Right upper quadrant pain (principal); I42.9 Cardiomyopathy, unspecified; I25.10 Atherosclerotic heart disease of native coronary artery without angina pectoris; E87.20 Acidosis, unspecified; I73.9 Peripheral vascular disease, unspecified; I10 Essential (primary) hypertension; E78.5 Hyperlipidemia, unspecified; I25.2 Old myocardial infarction; F17.210 Nicotine dependence, cigarettes, uncomplicated; Z79.02 Long term (current) use of antithrombotics/antiplatelets; Z79.82 Long term (current) use of aspirin; Z79.899 Other long term (current) drug therapy; Z95.1 Presence of aortocoronary bypass graft; Z95.5 Presence of coronary angioplasty implant and graft
CPT/HCPCS: 96361; 96365; 96375; 99283; 76705; 80053; 81001; 83605; 83690; 85025; J7030; A4216; J2405

== ENCOUNTER 2024-03-07 02:39 | Observation (INO) | payer MEDICARE, SELFPAY ==
[2019-08-08 14:05] VITALS: BMI 27.6
[2024-03-07] VITALS (12 sets, daily range): BP systolic 132–201; BP diastolic 48–89; PULSE 59–70; RESP 12–18; TEMP 36.5–37.1; O2SAT 95–100; BMI 27.1; BMI 27.0
--- NOTE | 2024-03-07 02:44 | ED.VIS.GI ---
HPI HPI - GI History of Present Illness Chief Complaint: Abd Pain Informant: patient Narrative Narrative: 68-year-old male presenting with recurrence epigastric pain and nausea. Here for this several times recently, went home from the ED AGAINST MEDICAL ADVICE day before yesterday because of the same thing, but now although it resolved temporarily it came back without clear trigger and he states he changed his mind and would like to be admitted to get this taken care of. He has known cholelithiasis, he has had multiple imaging of the abdomen and the gallbladder showing signs of acute cholecystitis, however there have been times when he was pain-free. Ultrasound couple days ago showed signs of cholecystitis and since he was not pain-free was advised to stay but he did not want to understanding that he is on clopidogrel and he would have to discontinue it for several days before he could have an operation since he was not septic. At this time he states his symptoms are the same as the episodes he was having before. They have been more frequent in the past week. 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 Hyperlipidemia Cardiomyopathy PAD (peripheral artery disease) CAD in [place] artery NSTEMI (non-ST elevated myocardial infarction) Essential hypertension Heart disease Arthritis HTN (hypertension) Home Medications ?Medication ?Instructions ?Recorded ?Last Taken ?Type clopidogrel 75 mg tablet (Plavix) 75 mg PO QDAY 07/24/17 10/31/23 History aspirin 81 mg tablet,delayed 81 mg PO DAILY@0800 01/30/19 10/31/23 History release atorvastatin 80 mg tablet 80 mg PO QHS 02/16/19 10/30/23 History lisinopril 5 mg tablet 5 mg PO QHS blood pressure 08/08/19 10/30/23 History nitroglycerin 0.4 mg sublingual 0.4 mg sublingual Q5-15M PRN Pain, 08/08/19 Unknown History tablet Mild pantoprazole 40 mg tablet,delayed 40 mg PO DAILY GERD 03/31/21 10/31/23 History release omeprazole 40 mg capsule,delayed 40 mg PO DAILY #30 caps 12/15/23 Unknown Rx release hydroxychloroquine 200 mg tablet 200 mg PO BID 02/22/24 Unknown History prednisone 10 mg tablet 10 mg PO DAILY 03/05/24 Unknown History metoprolol tartrate 25 mg tablet 25 mg PO DAILY 03/07/24 Unknown History Allergy/AdvReac Type Severity Reaction Status Date / Time Sulfa (Sulfonamide Allergy Other Verified 03/07/24 02:40 Antibiotics) Family History Father CAD (coronary artery disease) Mother Cancer CAD (coronary artery disease) Surgical History Presence of coronary angioplasty implant and graft (~06/08/19) History of coronary artery bypass surgery (~2000) Abdominal aortic aneurysm without rupture S/P PTCA (percutaneous transluminal coronary angioplasty) History of open heart surgery History of jfofh-agvun-urnkhtx bypass Social History Smoking Status: Current some day smoker tobacco type: cigarettes alcohol intake: current alcohol intake frequency: a few times a week Alcohol type: beer and hard liquor substance use type: does not use ROS ROS ED Constitutional Constitutional ED: Denies chills or fever(s) Eyes Eyes: Denies change in vision or diplopia ENT ENT ED: Denies rhinorrhea or sore throat Cardiovascular Cardiovascular: Denies chest pain or palpitations Respiratory/Chest Respiratory/Chest: Denies cough or dyspnea Gastrointestinal Gastrointestinal: Reports abdominal pain and nausea; Denies diarrhea or vomiting Genitourinary Genitourinary ED: Denies dysuria or hematuria Musculoskeletal Musculoskeletal: Denies back pain or neck pain Integumentary Denies abscess or rash Neurologic Neurologic: Denies headache(s), paresthesias or weakness Psychiatric Psychiatric: Denies anxiety or suicidal thoughts EXAM Physical Exam Const Vital Signs: 03/07/24 02:40 Temperature 97.7 F L Temperature Source Oral Pulse Rate 70 Respiratory Rate 18 Blood Pressure 201/89 H Blood Pressure Mean 126 Pulse Ox 100 Oxygen Delivery Method Room Air Positive well nourished and well developed General Appearance ED: well developed and NAD HEENT Reports moist mucous membranes normocephalic and atraumatic Eyes PERRL and EOMs intact bilaterally Neck full ROM and supple Resp normal respiratory effort and clear to auscultation bilaterally Cardio regular rate, regular rhythm and no murmurs GI non-distended GI Narrative: Moderately tender epigastrium and right upper quadrant medially. No other areas of tenderness. No pulsatile mass. Normal inspection no distention. Auscultation: normoactive bowel sounds Palpation: soft Back/Spine no CVA tenderness General Back: other FROM Extremity normal to inspection General Extremety ED: Negative for edema, pulses abnormal or tenderness General Extremity: Negative for edema or pulses abnormal Neuro oriented x3, CN's II-XII intact bilaterally and no sensory deficits noted Sensorium / Orientation: awake and alert Motor Exam: strength 5/5 throughout Skin no rashes or lesions noted and no wounds MDM MDM MDM Narrative Medical decision making narrative: I reviewed the last couple ED visits. I know this patient since I saw him several times recently. He has a history of peripheral arterial disease for which he is on clopidogrel, certainly mesenteric ischemia is in the differential but he had a CTA relatively recently that showed no acute thrombosis knees of the same symptoms so I do not think we need to repeat that. Ultrasound is not available to time he presents which is on overnight shift. Will treat his symptoms give him some IV fluids re-measure his labs. Labs noted his lactate is 2.0, less than during his prior visits. Again do not think this is indicating acute mesenteric ischemia. Zosyn started again. Discussed with hospitalist and surgery for inpatient care. Lab Data Attestation: I reviewed the patient's lab results. Labs: Laboratory Results - last 24 hr 03/07/24 02:46 WBC 11.9 H RBC 4.45 L Hgb 12.9 L Hct 41.3 MCV 92.8 MCH 29.0 MCHC 31.2 L RDW Std Deviation 49.5 H RDW Coeff of [place] 14.5 Plt Count 317 MPV 9.3 Immature Gran % (Auto) 1.300 H Neut % (Auto) 55.1 Lymph % (Auto) 33.0 [place] % (Auto) 6.0 Eos % (Auto) 3.6 Baso % (Auto) 1.0 Absolute Neuts (auto) 6.6 Absolute Lymphs (auto) 3.93 Nucleated RBC % 0 Sodium 140 Potassium 3.9 Chloride 111 H Carbon Dioxide 23.0 Anion Gap 6 BUN 16 Creatinine 1.35 H Estim Creat Clear Calc 54.07 Est GFR (MDRD) Af Amer 68 Est GFR (MDRD) Non-Af 56 L BUN/Creatinine Ratio 11.9 Glucose 111 H Lactic Acid 2.0 Calcium 8.7 Total Bilirubin 0.30 AST 13 L ALT 17 Alkaline Phosphatase 120 H Total Protein 6.6 Albumin 2.8 L Globulin 3.8 Albumin/Globulin Ratio 0.7 L Lipase 54 Management Discussion w/another healthcare provider: Hospitalist and [employer] (Juan Waddell) Discharge Plan Dx/Rx/DC Orders Clinical Impression: Acute calculous cholecystitis Disposition Disposition: Acute Care Hospital [facility]
[2024-03-07] MEDS: Ondansetron 4 MG/2 ML Vial IV (02:55)
[2024-03-07] MEDS: 0.9% Normal Saline (1000mL) 1,000 ML 999 ML IV (02:55)
[2024-03-07 02:56] LABS: Absolute Lymphocyte Count 3.93 X10^3/uL (0.83-4.51); Absolute Neutrophil Count 6.6 X10^3/uL (2.0-7.7); Basophil# 0.12 X10^3/uL; Eosinophil# 0.43 X10^3/uL; Eosinophils% 3.6 % (0-5); Hematocrit 41.3 % (40-54); Hemoglobin 12.9 g/dL (13.0-16.5); Lymphocyte # 3.93 X10^3/ul (0.83-4.51); Mean Corp Hgb Conc 31.2 g/dL (32-36); Mean Corpuscular Volume 92.8 fL (80-94); Mean Platelet Vol. 9.3 fl (6.2-12.0); Monocyte# 0.71 X10^3/uL; NRBC Flagged by Analyzer 0 % (0-5); Neutrophil # 6.58 X10^3/uL (2.7-7.7); Neutrophil % 55.1 % (47-70); Platelet Count 317 K/mm3 (150-450); RBC Distribution Width CV 14.5 % (11.6-14.6); RBC Distribution Width SD 49.5 fl (35.1-43.9); Red Blood Count 4.45 M/mm3 (4.6-6.2); White Blood Count 11.9 K/mm3 (4.4-11.0)
[2024-03-07] MEDS: Morphine 4 MG/ML Syringe IV (02:56)
[2024-03-07 03:12] LABS: ALB/GLOB Ratio 0.7 RATIO (0.9-2.4); AST(SGOT) 13 U/L (15-37); Alanine Aminotransfer ALT/SGPT 17 U/L (16-61); Albumin, Serum 2.8 g/dL (3.2-5.0); Alkaline Phosphatase 120 U/L (45-117); Anion Gap 6 (5-15); BUN 16 mg/dL (7-18); BUN/Creat Ratio 11.9 RATIO (10-20); Calcium,Total 8.7 mg/dL (8.5-10.1); Chloride 111 mmol/L (98-107); Creatinine, Serum 1.35 mg/dL (0.70-1.30); EST Glomerular Filtration Rate 56 mL/min (>60); Est Glom Filt Rate - Afr Amer 68 mL/min (>60); Estimated Creatinine Clearance 54.07 ml/min; Globulin 3.8 g/dL (2.2-4.2); Glucose 111 mg/dL (74-106); Lipase 54 U/L (13-75); Potassium 3.9 mmol/L (3.5-5.1); Protein, Total 6.6 g/dL (6.4-8.2); Sodium Level 140 mmol/L (136-145)
[2024-03-07] MEDS: Piperacil/Tazobactam 3.375 GM in 0.9% Normal Saline (50mL MB+) 50 ML IV ×3 (03:29→23:23)
[2024-03-07] MEDS: HYDROmorphone 1 MG/ML Syringe IV (03:40)
--- NOTE | 2024-03-07 04:08 | HP.PCM.HOS_ITS ---
HPI - General General Date of Admission: 03/07/24 Date of Service: 03/07/24 Chief Complaint: Intractable abdominal pain HPI Narrative The patient is a 68 y/o M w/ PMHx: CKD stage III unclear subtype, Chronic anemia, Hx ischemic colitis suspected previously secondary to hypoperfusion event, CAD s/p NSTEMI, CABG x 3 and PCI (PCI/VICKIE to LCX/OM2 06/08/19; PCI/stent to LAD, D1 and LCX 09/16), HTN, HLD, AAA status postrepair 1994 with endovascular stenting placed multiple years previously with currently noted 4.7 cm saccular without rupture PAD status post aortoiliac femoral bypass, Rheumatoid arthritis, GERD, Tobacco use, Chronic abdominal pain, recent 03/05/2024 ED visit secondary to recurrent epigastric abdominal pain which has been seen multiple times with associated nausea without emesis with recent upper endoscopy with moderate Schatzki's ring suspicious of duodenal fistula and colonoscopy with nonbleeding ulcer at mucosa of the sigmoid colon with ischemic changes and capsule endoscopy with findings suggestive of celiac versus IBD versus NSAID induced enteritis as well as prior to this recent CTA abdomen and pelvis with pericholecystic fluid suggestive of acute cholecystitis associated with small calcified gallstones with a stable 4.7 cm saccular aneurysm of the infrarenal abdominal aorta with no evidence of any ischemic process with 03/05/2024 abdominal ultrasound with evidence of cholelithiasis with mild gallbladder wall thickening concerning for acute cholecystitis now representing to the [facility] ED on 03/07/2024 as patient during the previous visit despite recommendation for admission per surgeon had left AMA now returning with again ongoing epigastric discomfort and nausea which remains intermittent and has been more frequent over the last week. Patient in the ED reporting pain 1/10 in severity currently following ED interventions and denies any nausea. He notes that these episodes of pain always occur in the early am, often awakening him in his sleep. He ate a sandwich for dinner at ~ 8 pm but again does not seem to worsen after oral intake even by 1-2 hours. He notes the pain is accommodation of dull aching and sharp stabbing. Current workup included T97.7, heart rate 70, BP 2 , respiratory rate 18, 100% room air, CBC with WBC 11.9, hemoglobin 12.9, MCV 92.8, platelet 317 with increased immature granulocytes, CMP with chloride 111, BUN/creatinine 16/1.35, GFR 56, glucose 111, total bilirubin 0.30, AST/ALT 13/17, alk phos 120, lipase 54, lactic acid 2.0. In the ED patient administered 1 L normal saline, Dilaudid 1 mg IV x 1, morphine 4 mg IV x 1, Zofran 4 mg IV x 1 as well as IV Zosyn 3.375 g IV x 1. [facility] Medical History Hypertension Personal history of colonic polyps Ischemic colitis History of pneumonia Presence of stent in coronary artery (~06/08/19) Old myocardial infarction Atherosclerotic heart disease of [place] coronary artery without angina pectoris Hyperlipidemia Cardiomyopathy PAD (peripheral artery disease) CAD in [place] artery NSTEMI (non-ST elevated myocardial infarction) Essential hypertension Heart disease Arthritis HTN (hypertension) Home Medications ?Medication ?Instructions ?Recorded ?Last Taken ?Type clopidogrel 75 mg tablet (Plavix) 75 mg PO QDAY 07/24/17 10/31/23 History aspirin 81 mg tablet,delayed 81 mg PO DAILY@0800 01/30/19 10/31/23 History release atorvastatin 80 mg tablet 80 mg PO QHS 02/16/19 10/30/23 History lisinopril 5 mg tablet 5 mg PO QHS blood pressure 08/08/19 10/30/23 History nitroglycerin 0.4 mg sublingual 0.4 mg sublingual Q5-15M PRN Pain, 08/08/19 Unknown History tablet Mild pantoprazole 40 mg tablet,delayed 40 mg PO DAILY GERD 03/31/21 10/31/23 History release omeprazole 40 mg capsule,delayed 40 mg PO DAILY #30 caps 12/15/23 Unknown Rx release hydroxychloroquine 200 mg tablet 200 mg PO BID 02/22/24 Unknown History prednisone 10 mg tablet 10 mg PO DAILY 03/05/24 Unknown History metoprolol tartrate 25 mg tablet 25 mg PO DAILY 03/07/24 Unknown History Allergy/AdvReac Type Severity Reaction Status Date / Time Sulfa (Sulfonamide Allergy Other Verified 03/07/24 02:40 Antibiotics) Family History Father CAD (coronary artery disease) Mother Cancer CAD (coronary artery disease) Surgical History Presence of coronary angioplasty implant and graft (~06/08/19) History of coronary artery bypass surgery (~2000) Abdominal aortic aneurysm without rupture S/P PTCA (percutaneous transluminal coronary angioplasty) History of open heart surgery History of wbqab-[id number]-tcmyyvz bypass Social History (Updated 03/07/24 @ 04:[address] Aruna Tovar MD) household members: none Smoking Status: Current some day smoker tobacco type: cigarettes Smoking packs per day: 0.24 Smoking cigarettes per day: 4.8 alcohol intake: current alcohol intake frequency: holidays/special occasions only substance use type: does not use ROS ROS Narrative Admission Review of Systems: CONSTITUTIONAL: No weight loss, fever, chills, + weakness or fatigue. HEENT: Eyes: No visual loss, blurred vision, double vision or yellow sclerae. Ears, Nose, Throat: No hearing loss, sneezing, congestion, runny nose or sore throat. SKIN: No rash or itching, lesions, wounds. CARDIOVASCULAR: No chest pain, chest pressure or chest discomfort, palpitations, edema, orthopnea, syncopal events. RESPIRATORY: No shortness of breath, cough or sputum, wheezing, hemoptysis. GASTROINTESTINAL: + Anorexia, nausea without vomiting, abdominal pain. No diarrhea, melena, BRBPR. GENITOURINARY: No dysuria, frequency, urgency or retention. NEUROLOGICAL: No headache, dizziness, syncope, paralysis, ataxia, numbness or tingling in the extremities, focal weakness, change in bowel or bladder control, seizure. MUSCULOSKELETAL: + muscle, back pain, joint pain or stiffness. HEMATOLOGIC: + Chronic anemia, easy bleeding/bruising. LYMPHATICS: No enlarged nodes. No history of splenectomy. PSYCHIATRIC: No history of depression or anxiety. ENDOCRINOLOGIC: No reports of sweating, cold or heat intolerance. No polyuria or polydipsia. ALLERGIES: No history of asthma, hives, eczema or rhinitis. Vital Signs Vital Signs Vital Signs: 03/07/24 02:40 03/07/24 03:57 03/07/24 04:00 Temperature 97.7 F L 97.8 F 97.8 F Temperature Source Oral Oral Pulse Rate 70 60 60 Respiratory Rate 18 12 12 Blood Pressure 201/89 H 182/88 H 183/78 H Blood Pressure Mean 126 119 113 Pulse Ox 100 98 95 Oxygen Delivery Method Room Air Room Air Weight Weight: 188 lb 11.451 oz Body Mass Index (BMI) 27.1 Physical Exam Narrative Physical Examination: General: Awake, alert, oriented x 3 and cooperative, seated upright in the ED bed, fatigued, notes pain is improved, currently rating it 1 out of 10 in severity. Skin: Normal color, normal turgor, no icterus, no cyanosis except occasional stage ecchymoses HEENT: AT/NC, EOMI, PERRLA, mildly dry MM, no carotid bruits or JVD noted. Lungs: Diminished, greater bases, appropriate effort, no rales, ronchi or wheezing. Heart: Regular rate and rhythm; no gallop, rub audible. Abdomen: Soft, notable discomfort to palpation primarily in the epigastric region and some in the right upper quadrant, nondistended, hyperactive bowel sounds, no discerned HSM. Extremities: No cyanosis, no clubbing, mild bilateral ankle not markedly pitting edema. Neurological: Patient awake, alert, oriented as noted, cognitive function intact; pupils equally reactive to light and accommodation, cranial nerves gross normal, moving all 4 extremities, no focal deficits, strength moderately globally decreased secondary to acute complaints. Psychiatric: Affect appears fatigued, no acute evidence of depressive or anxiety feelings. Results Lab / Micro Data 03/07/24 02:46 03/07/24 02:46 Labs: Laboratory Results - last 24 hr 03/07/24 02:46: WBC 11.9 H, RBC 4.45 L, Hgb 12.9 L, Hct 41.3, MCV 92.8, MCH 29.0, MCHC 31.2 L, RDW Std Deviation 49.5 H, RDW Coeff of [place] 14.5, Plt Count 317, MPV 9.3, Immature Gran % (Auto) 1.300 H, Neut % (Auto) 55.1, Lymph % (Auto) 33.0, [place] % (Auto) 6.0, Eos % (Auto) 3.6, Baso % (Auto) 1.0, Absolute Neuts (auto) 6.6, Absolute Lymphs (auto) 3.93, Nucleated RBC % 0, Sodium 140, Potassium 3.9, Chloride 111 H, Carbon Dioxide 23.0, Anion Gap 6, BUN 16, C reatinine 1.35 H, Estim Creat Clear Calc 54.07, Est GFR (MDRD) Af Amer 68, Est GFR (MDRD) Non-Af 56 L, BUN/Creatinine Ratio 11.9, Glucose 111 H, Lactic Acid 2.0, Calcium 8.7, Total Bilirubin 0.30, AST 13 L, ALT 17, Alkaline Phosphatase 120 H, Total Protein 6.6, Albumin 2.8 L, Globulin 3.8, Albumin/Globulin Ratio 0.7 L, Lipase 54 Assessment & Plan Assessment/Plan (1) Acute epigastric pain: PLAN: Plan The patient is a 68 y/o M w/ PMHx: CKD stage III unclear subtype, Chronic anemia, Hx ischemic colitis suspected previously secondary to hypoperfusion event, CAD s/p NSTEMIm CABG x 3, PCI (PCI/VICKIE to LCX/OM2 06/08/19; PCI/stent to LAD, D1 and LCX 09/16), HTN, HLD, AAA status postrepair 1994 with endovascular stenting placed multiple years previously with currently noted 4.7 cm saccular without rupture PAD status post aortoiliac femoral bypass, Rheumatoid arthritis, GERD, Tobacco use, Chronic abdominal pain presenting to the [facility] ED on 03/07/2024 with ongoing epigastric discomfort and nausea. #1. Acute on Chronic abdominal pain (#2) possibly secondary to acute cholecystitis: Will admit to [facility], maintain on IVFs, NPO, maintain on IV PPI, IV/po pain control, continue IV Zosyn, continue surgery consultation for further consideration of intervention, continue aspirin, holding Plavix. Given extensive history as noted below Cardiology consulted for preoperative assessment. #2. Chronic abdominal pain, suspected Hx ischemic colitis, possible celiac versus IBD versus NSAID induced enteritis: Patient with upper endoscopy with moderate Schatzki's ring suspicious of duodenal fistula and colonoscopy with nonbleeding ulcer at mucosa of the sigmoid colon with ischemic changes and capsule endoscopy with findings suggestive of celiac versus IBD versus NSAID induced enteritis, encourage continued follow-up with GI. #3. Normocytic anemia: Admission hemoglobin 12.9, MCV 92.8, baseline hemoglobin more recently primarily 13-14 but has vacillated and in the past also been decreased, will continue to trend. #4. Chronic Kidney Disease Stage III, unclear subtype: Admission BUN/Cr 16/1.35, GFR 56, baseline renal function primarily 1.3-1.6, repeat BMP in AM. #5. CAD: s/p NSTEMI, CABG x 3 and PCI (PCI/VICKIE to LCX/OM2 06/08/19; PCI/stent to LAD, D1 and LCX 09/16), will continue aspirin, holding Plavix, continue statin, continue metoprolol and lisinopril home regimen. #6. PAD: Status post previous aortoiliac femoral bypass, continue aspirin, holding Plavix, continue statin, continue hypertensive regimen as noted. #7. Hypertension: Continue home regimen including lisinopril, metoprolol, PRN hydralazine. #8. Hyperlipidemia: We will continue patient on statin therapy. #9. AAA: Patient status post repair 1994 with endovascular stenting placed multiple years previously with currently noted 4.7 cm saccular without rupture. #10. Tobacco Abuse: Encouraged cessation, inpatient consultation per RT, NR if desired. #11. Rheumatoid arthritis: Given current presentation will temporally hold #12. GERD: Will maintain on IV PPI. #13. DVT prophylaxis: Lovenox. #14. CODE status: Patient does not have healthcare Pap assistant attorney general or living will in place but notes his daughter who is present would be his medical decision- maker if necessary. Discussed CODE status at length including difference between FULL code, DNR-CCA and DNR-CC status. Following discussions about the differences in these status, requested Full Code status. Advanced Care Planning Face to Face Time: 16 minutes. Charges/Coding Visit Charges Inpatient E&M: 28141 Init Hosp L3 Procedures Hospitalists Procedures: 22162 Advncd Care Plan 30 Min
[2024-03-07 04:33] LABS: Magnesium 1.6 mg/dL (1.6-2.6)
[2024-03-07] MEDS: 0.9% Normal Saline (1000mL) 1,000 ML 100 ML IV (05:29)
[2024-03-07] MEDS: 0.9% Saline Lock 10 ML Syringe IV ×2 (05:29→22:50)
[2024-03-07] MEDS: hydrALAZINE 20 MG/ML Vial 10 MG IV (05:30)
[2024-03-07] MEDS: Pantoprazole Sodium 40 MG in 0.9% Normal Saline (100mL MB+) 100 ML 330 MG IV ×2 (05:30→22:49)
[2024-03-07 06:53] LABS: Reflex Lactate? Y
[2024-03-07 07:19] LABS: Absolute Lymphocyte Count 1.95 X10^3/uL (0.83-4.51); Absolute Neutrophil Count 6.2 X10^3/uL (2.0-7.7); Basophil# 0.08 X10^3/uL; Basophil% 0.9 % (0-1); Eosinophil# 0.32 X10^3/uL; Eosinophils% 3.5 % (0-5); Hematocrit 38.7 % (40-54); Hemoglobin 11.9 g/dL (13.0-16.5); Lymphocyte # 1.95 X10^3/ul (0.83-4.51); Lymphocyte % 21.1 % (19-41); Mean Corp Hgb Conc 30.7 g/dL (32-36); Mean Corpuscular Hgb 28.7 pg (27.0-32.0); Mean Corpuscular Volume 93.5 fL (80-94); Mean Platelet Vol. 9.8 fl (6.2-12.0); Monocyte# 0.52 X10^3/uL; Monocyte% 5.6 % (0-10); NRBC Flagged by Analyzer 0 % (0-5); Neutrophil # 6.23 X10^3/uL (2.7-7.7); Neutrophil % 67.5 % (47-70); Platelet Count 268 K/mm3 (150-450); RBC Distribution Width CV 14.5 % (11.6-14.6); RBC Distribution Width SD 49.6 fl (35.1-43.9); Red Blood Count 4.14 M/mm3 (4.6-6.2); White Blood Count 9.2 K/mm3 (4.4-11.0)
[2024-03-07 07:57] LABS: Lactic Acid 1.4 mmol/L (0.4-1.9)
[2024-03-07] MEDS: Enoxaparin 40 MG/0.4 ML Syringe SC (08:11)
[2024-03-07] MEDS: Metoprolol Tartrate 25 MG Tablet PO ×2 (08:11→22:49)
[2024-03-07] MEDS: Aspirin E.C. 81 MG Tablet PO (08:11)
--- NOTE | 2024-03-07 10:30 | CON.PCM.SX_ITS ---
Assessment & Plan Assessment/Plan (1) Calculous cholecystitis: PLAN: Patient seems to have chronic cholecystitis. He keeps presenting with cholecystitis symptoms and then they disappear and then he goes back home. I recommended laparoscopic cholecystectomy to him. Patient is a Plavix that we will have to wait for the Plavix to wear off. I tentatively have him scheduled for afternoon. I discussed surgery with him in detail. I will give him full liquids until . Jarred Waddell MD Pager: [facility] [address] [place] [address], [address] [place] [address] Office: HPI Consult Data Date of Consult: 03/07/24 HPI Narrative HPI Narrative: CHEY ROSADO, is a 68 M who presents with epigastric pain. The patient has been in the emergency room several times for this. He was supposed to follow-up and never did and he came back in Thursday and left AMA and now he is back again with epigastric pain that has recurred. He denies nausea vomiting or fevers or chills. Pain is in the epigastric region and does not radiate. ON LICENSE OF [facility] Medical History Hypertension Personal history of colonic polyps Ischemic colitis History of pneumonia Presence of stent in coronary artery (~06/08/19) Old myocardial infarction Atherosclerotic heart disease of [place] coronary artery without angina pectoris Hyperlipidemia Cardiomyopathy PAD (peripheral artery disease) CAD in [place] artery NSTEMI (non-ST elevated myocardial infarction) Essential hypertension Heart disease Arthritis HTN (hypertension) Home Medications ?Medication ?Instructions ?Recorded ?Last Taken ?Type clopidogrel 75 mg tablet (Plavix) 75 mg PO QDAY 07/24/17 10/31/23 History aspirin 81 mg tablet,delayed 81 mg PO DAILY@0800 01/30/19 10/31/23 History release atorvastatin 80 mg tablet 80 mg PO QHS 02/16/19 10/30/23 History lisinopril 5 mg tablet 5 mg PO QHS blood pressure 08/08/19 10/30/23 History nitroglycerin 0.4 mg sublingual 0.4 mg sublingual Q5-15M PRN Pain, 08/08/19 Unknown History tablet Mild pantoprazole 40 mg tablet,delayed 40 mg PO DAILY GERD 03/31/21 10/31/23 History release omeprazole 40 mg capsule,delayed 40 mg PO DAILY #30 caps 12/15/23 Unknown Rx release hydroxychloroquine 200 mg tablet 200 mg PO BID 02/22/24 Unknown History prednisone 10 mg tablet 10 mg PO DAILY 03/05/24 Unknown History metoprolol tartrate 25 mg tablet 25 mg PO BID Heart 03/07/24 Unknown History Allergy/AdvReac Type Severity Reaction Status Date / Time Sulfa (Sulfonamide Allergy Other Verified 03/07/24 02:40 Antibiotics) Family History Father CAD (coronary artery disease) Mother Cancer CAD (coronary artery disease) Surgical History Presence of coronary angioplasty implant and graft (~06/08/19) History of coronary artery bypass surgery (~2000) Abdominal aortic aneurysm without rupture S/P PTCA (percutaneous transluminal coronary angioplasty) History of open heart surgery History of rbffj-iysdb-wbefait bypass Social History (Updated 03/07/24 @ 04:[address] Aruna Tovar MD) household members: none Smoking Status: Current some day smoker tobacco type: cigarettes Smoking packs per day: 0.24 Smoking cigarettes per day: 4.8 alcohol intake: current alcohol intake frequency: holidays/special occasions only substance use type: does not use ROS Constitutional Constitutional: Denies anorexia, chills, fatigue or fever(s) Eyes Eyes: Denies blurry vision ENT HEENT: Denies abnormal hearing Respiratory/Chest Respiratory/Chest: Denies cough or dyspnea Gastrointestinal Gastrointestinal: Reports abdominal pain; Denies diarrhea, dysphagia, nausea or vomiting Musculoskeletal Musculoskeletal: Denies abnormal gait Integumentary Integumentary: Denies jaundice Neurologic Neurologic: Denies dizziness Physical Exam Const alert and oriented x3 HEENT normocephalic Eyes PERRL Lymph Lymphatic: no lymphadenopathy noted Resp normal respiratory effort Cardio Rate: regular rate Rhythm: regular rhythm GI soft to palpation Palpation: tender epigastric Lab / Micro Data 03/07/24 06:25 03/07/24 02:46 Labs: Laboratory Results - last 24 hr 03/07/24 02:46: WBC 11.9 H, RBC 4.45 L, Hgb 12.9 L, Hct 41.3, MCV 92.8, MCH 29.0, MCHC 31.2 L, RDW Std Deviation 49.5 H, RDW Coeff of [place] 14.5, Plt Count 317, MPV 9.3, Immature Gran % (Auto) 1.300 H, Neut % (Auto) 55.1, Lymph % (Auto) 33.0, [place] % (Auto) 6.0, Eos % (Auto) 3.6, Baso % (Auto) 1.0, Absolute Neuts (auto) 6.6, Absolute Lymphs (auto) 3.93, Nucleated RBC % 0, Sodium 140, Potassium 3.9, Chloride 111 H, Carbon Dioxide 23.0, Anion Gap 6, BUN 16, C reatinine 1.35 H, Estim Creat Clear Calc 54.07, Est GFR (MDRD) Af Amer 68, Est GFR (MDRD) Non-Af 56 L, BUN/Creatinine Ratio 11.9, Glucose 111 H, Lactic Acid 2.0, Calcium 8.7, Magnesium 1.6, Total Bilirubin 0.30, AST 13 L, ALT 17, A lkaline Phosphatase 120 H, Total Protein 6.6, Albumin 2.8 L, Globulin 3.8, A lbumin/Globulin Ratio 0.7 L, Lipase 54 03/07/24 06:25: WBC 9.2, RBC 4.14 L, Hgb 11.9 L, Hct 38.7 L, MCV 93.5, MCH 28.7, MCHC 30.7 L, RDW Std Deviation 49.6 H, RDW Coeff of [place] 14.5, Plt Count 268, MPV 9.8, Immature Gran % (Auto) 1.400 H, Neut % (Auto) 67.5, Lymph % (Auto) 21.1, [place] % (Auto) 5.6, Eos % (Auto) 3.5, Baso % (Auto) 0.9, Absolute Neuts (auto) 6.2, Absolute Lymphs (auto) 1.95, Nucleated RBC % 0 03/07/24 07:07: Lactic Acid 1.4
[2024-03-07 11:02] LABS: ALB/GLOB Ratio 0.8 RATIO (0.9-2.4); AST(SGOT) 11 U/L (15-37); Alanine Aminotransfer ALT/SGPT 11 U/L (16-61); Albumin, Serum 2.6 g/dL (3.2-5.0); Alkaline Phosphatase 110 U/L (45-117); Anion Gap 6 (5-15); BUN 15 mg/dL (7-18); BUN/Creat Ratio 12.2 RATIO (10-20); Calcium,Total 8.2 mg/dL (8.5-10.1); Chloride 115 mmol/L (98-107); Creatinine, Serum 1.23 mg/dL (0.70-1.30); EST Glomerular Filtration Rate 62 mL/min (>60); Est Glom Filt Rate - Afr Amer 75 mL/min (>60); Estimated Creatinine Clearance 59.35 ml/min; Globulin 3.2 g/dL (2.2-4.2); Glucose 87 mg/dL (74-106); Potassium 4.2 mmol/L (3.5-5.1); Protein, Total 5.8 g/dL (6.4-8.2); Sodium Level 142 mmol/L (136-145)
--- NOTE | 2024-03-07 11:45 | CASEMGMT ---
GERONIMO WHEELER Assessment: Face to Face with pt for initial transition planning/care coordination assessment. GERONIMO WHEELER introduced self and role at [facility], pt voices understanding and consents to assessment. Pt is A&O x4 and answers all questions appropriately at this time. Pt lying in bed in no distress. Care providers, pharmacy, and demographics verified/updated. Strata: 3 Admitting Dx: Intractable Abdominal pain PCP: Jacklyn Specialists: RA Enmanuel; Friend, Gastrologist Preferred Pharmacy: [facility] Insurance: [employer] [facility] Prescription Benefit: no LNOK: Daughter Living Arrangements: Pt lives alone in a 1 story home with no steps to enter. ADLs: Pt states I at home with ADLs and IADLs. Transportation: Pt drives self and denies concerns with transportation. DME: Pt denies HHC/SNF: Denies Hx of SNF, states previously used [facility] but does not recall company. Pt states no concerns with going home at time of dc. Pt states no further concerns/needs. CM to follow. Advised pt to ask CM if any further question/concerns/needs arise, voices understanding. Pt Goal: Home Plan: Home with family support. Daughter lives close by. Guillermo MELTON CM
--- NOTE | 2024-03-07 13:16 | CON.PCM.CA_ITS ---
Assessment & Plan Assessment/Plan (1) Preop cardiovascular exam: PLAN: In terms of preoperative cardiovascular evaluation he does not have any chest discomfort. He has had stable cardiovascular exam and at this time I would not recommend that we make any changes. His Plavix can be discontinued and he can undergo his intended surgery later on this week. (2) Presence of coronary angioplasty implant and graft: PLAN: He is status post coronary bypass surgery and stenting as noted above. I would not make any changes at this time. (3) HTN (hypertension): PLAN: His blood pressure is not under good control. We will optimize his medical therapy at this particular time. (4) Hyperlipidemia: PLAN: He does have a history of hyperlipidemia and will continue with aggressive risk factor modification. HPI Consult Data Date of Consult: 03/07/24 HPI Narrative HPI Narrative: CHEY ROSADO, is a 68 M who presents with abdominal discomfort and was diagnosed as having cholecystitis. He apparently left AMA from the emergency room a few weeks ago and now presents back. Cardiology was consulted because he has an extensive cardiac history and he has been on clopidogrel which has not been discontinued. He does have an underlying extensive cardiac and peripheral vascular history with abdominal aortic aneurysm/mural thrombus, with a history of underlying CAD, PCI of the left anterior descending artery, diagonal vessel, and circumflex artery. He also has a history of previous coronary bypass surgery CABG, ischemic mediated cardiomyopathy, extensive peripheral arterial occlusive disease, hyperlipidemia, hypertension. He denies any chest pain or shortness of breath or paroxysmal nocturnal dyspnea pedal edema he has had no neck arm or jaw discomfort suggest angina. Patient did undergo a heart catheterization in [facility] which demonstrated normal left main coronary artery, a 100% occlusion of the mid LAD descending artery, a 100% severe in-stent restenosis of the ostial diagonal coronary artery stent, thrombolysis in myocardial infarction 1 flow. 95% in- stent restenosis of the mid left circumflex coronary artery stent. 100% occlusion of the ostial proximal lumbee right coronary artery, right to right collateral fill the right ventricular marginal branches. Known occluded SVG to the ramus intermedius, lumbee ramus intermedius has severe epicardial obstructive coronary artery disease. Occluded SVG to the right posterior lateral branch, free left internal mammary artery graft originates from the saphenous vein graft to the right posterior lateral branch. Medical management has been recommended. [facility], [facility] Medical History (Updated 03/07/24 @ 13:[address] Clovis Robles MD) Hypertension Personal history of colonic polyps Ischemic colitis History of pneumonia Presence of stent in coronary artery (~06/08/19) Old myocardial infarction Atherosclerotic heart disease of lumbee coronary artery without angina pectoris Hyperlipidemia Cardiomyopathy PAD (peripheral artery disease) CAD in lumbee artery NSTEMI (non-ST elevated myocardial infarction) Essential hypertension Heart disease Arthritis HTN (hypertension) Home Medications ?Medication ?Instructions ?Recorded ?Last Taken ?Type clopidogrel 75 mg tablet (Plavix) 75 mg PO QDAY 07/24/17 10/31/23 History aspirin 81 mg tablet,delayed 81 mg PO DAILY@0800 01/30/19 10/31/23 History release atorvastatin 80 mg tablet 80 mg PO QHS 02/16/19 10/30/23 History lisinopril 5 mg tablet 5 mg PO QHS blood pressure 08/08/19 10/30/23 History nitroglycerin 0.4 mg sublingual 0.4 mg sublingual Q5-15M PRN Pain, 08/08/19 Unknown History tablet Mild pantoprazole 40 mg tablet,delayed 40 mg PO DAILY GERD 03/31/21 10/31/23 History release omeprazole 40 mg capsule,delayed 40 mg PO DAILY #30 caps 12/15/23 Unknown Rx release hydroxychloroquine 200 mg tablet 200 mg PO BID 02/22/24 Unknown History prednisone 10 mg tablet 10 mg PO DAILY 03/05/24 Unknown History metoprolol tartrate 25 mg tablet 25 mg PO BID Heart 03/07/24 Unknown History Allergy/AdvReac Type Severity Reaction Status Date / Time Sulfa (Sulfonamide Allergy Other Verified 03/07/24 02:40 Antibiotics) Family History Father CAD (coronary artery disease) Mother Cancer CAD (coronary artery disease) Surgical History (Updated 03/07/24 @ 13:[address] Clovis Robles MD) Presence of coronary angioplasty implant and graft (~06/08/19) History of coronary artery bypass surgery (~2000) Abdominal aortic aneurysm without rupture S/P PTCA (percutaneous transluminal coronary angioplasty) History of open heart surgery History of dcaea-pjjay-pffkvip bypass Social History household members: none Smoking Status: Current some day smoker tobacco type: cigarettes Smoking packs per day: 0.24 Smoking cigarettes per day: 4.8 alcohol intake: current alcohol intake frequency: holidays/special occasions only substance use type: does not use ROS Constitutional Constitutional: Denies fever(s) or weight loss Eyes Eyes: Reports systems reviewed and no addt'l complaints, except as documented ENT HEENT: Reports systems reviewed and no addt'l complaints, except as documented Cardiovascular Cardiovascular: Denies chest pain at rest, chest pain with activity, dyspnea at rest, dyspnea on exertion, edema, palpitations or paroxysmal nocturnal dyspnea Respiratory/Chest Respiratory/Chest: Denies dyspnea on exertion, productive cough, shortness of breath at rest or shortness of breath with exertion Gastrointestinal Gastrointestinal: Reports nausea and vomiting; Denies change in bowel habits or weight changes Genitourinary Genitourinary: Denies difficulty urinating Musculoskeletal Musculoskeletal: Denies joint stiffness or muscle weakness Integumentary Integumentary: Denies lesions Neurologic Neurologic: Denies dizziness or syncope Psychiatric Psychiatric: Denies anxiety Endocrine Endocrinology: Denies excessive sweating or fatigue Hematologic/Lymphatic Hematologic/Lymphatic: Denies anemia Allergic/Immunologic Allergic/Immunologic: Denies seasonal rhinorrhea Physical Exam Const alert, oriented x3 and no apparent distress General Appearance: cooperative HEENT hearing grossly normal bilaterally Head and Scalp: atraumatic Eyes EOMs intact bilaterally Neck General: normal visual inspection Chest inspection of chest normal and palpation of chest normal Resp normal respiratory effort Auscultation: clear to auscultation bilaterally Cardio regular rate, regular rhythm, S1 normal heart sound and S2 normal heart sound Jugular Venous Distention: JVD GI normal to inspection, nondistended, normoactive bowel sounds Extremity normal capillary refill and no pedal edema Peripheral Pulses: Yes pulses 2+ throughout and femoral pulses present Skin no rashes or lesions noted Neuro oriented x3 and CN's II-XII intact bilaterally Psych Appearance: grossly normal and appropriate Risk Stratification Risk Stratification Applicable: No Objective Data Vital Signs: Vital Signs Temp Pulse Resp BP Pulse Ox O2 Del Method 98.4 F 62 16 133/57 H 96 Room Air 03/07/24 11:21 03/07/24 11:21 03/07/24 11:21 03/07/24 11:21 03/07/24 11:21 03/07/24 11:21 Oxygen Delivery Method Room Air Weight: 188 lb 11.451 oz Body Mass Index (BMI) 27.0 Intake & Output: Intake and Output for Last 24 Hours 03/05/24 03/06/24 03/07/24 23:59 23:59 23:59 Intake Total 1410 / 1410 Balance 1410 / 1410 Lab / Micro Data 03/07/24 06:25 03/07/24 06:25 Labs: Laboratory Results - last 24 hr 03/07/24 02:46: WBC 11.9 H, RBC 4.45 L, Hgb 12.9 L, Hct 41.3, MCV 92.8, MCH 29.0, MCHC 31.2 L, RDW Std Deviation 49.5 H, RDW Coeff of [place] 14.5, Plt Count 317, MPV 9.3, Immature Gran % (Auto) 1.300 H, Neut % (Auto) 55.1, Lymph % (Auto) 33.0, Barry % (Auto) 6.0, Eos % (Auto) 3.6, Baso % (Auto) 1.0, Absolute Neuts (auto) 6.6, Absolute Lymphs (auto) 3.93, Nucleated RBC % 0, Sodium 140, Potassium 3.9, Chloride 111 H, Carbon Dioxide 23.0, Anion Gap 6, BUN 16, C reatinine 1.35 H, Estim Creat Clear Calc 54.07, Est GFR (MDRD) Af Amer 68, Est GFR (MDRD) Non-Af 56 L, BUN/Creatinine Ratio 11.9, Glucose 111 H, Lactic Acid 2.0, Calcium 8.7, Magnesium 1.6, Total Bilirubin 0.30, AST 13 L, ALT 17, A lkaline Phosphatase 120 H, Total Protein 6.6, Albumin 2.8 L, Globulin 3.8, A lbumin/Globulin Ratio 0.7 L, Lipase 54 03/07/24 06:25: WBC 9.2, RBC 4.14 L, Hgb 11.9 L, Hct 38.7 L, MCV 93.5, MCH 28.7, MCHC 30.7 L, RDW Std Deviation 49.6 H, RDW Coeff of [place] 14.5, Plt Count 268, MPV 9.8, Immature Gran % (Auto) 1.400 H, Neut % (Auto) 67.5, Lymph % (Auto) 21.1, Barry % (Auto) 5.6, Eos % (Auto) 3.5, Baso % (Auto) 0.9, Absolute Neuts (auto) 6.2, Absolute Lymphs (auto) 1.95, Nucleated RBC % 0, Sodium 142, Potassium 4.2, Chloride 115 H, Carbon Dioxide 22.0, Anion Gap 6, BUN 15, Creatinine 1.23, Estim Creat Clear Calc 59.35, Est GFR (MDRD) Af Amer 75, Est GFR (MDRD) Non-Af 62, BUN/Creatinine Ratio 12.2, Glucose 87, Calcium 8.2 L, Total Bilirubin 0.40, AST 11 L, ALT 11 L, Alkaline Phosphatase 110, Total Protein 5.8 L, Albumin 2.6 L, Globulin 3.2, Albumin/Globulin Ratio 0.8 L 03/07/24 07:07: Lactic Acid 1.4 Cardiology Labs/Tests 03/07/24 02:46: WBC 11.9 H, RBC 4.45 L, Hgb 12.9 L, Hct 41.3, MCV 92.8, MCH 29.0, MCHC 31.2 L, Plt Count 317, MPV 9.3, Immature Gran % (Auto) 1.300 H, Neut % (Auto) 55.1, Lymph % (Auto) 33.0, Barry % (Auto) 6.0, Eos % (Auto) 3.6, Baso % (Auto) 1.0, Absolute Neuts (auto) 6.6, Nucleated RBC % 0, Sodium 140, Potassium 3.9, Chloride 111 H, Carbon Dioxide 23.0, Anion Gap 6, BUN 16, Creatinine 1.35 H , Est GFR (MDRD) Af Amer 68, Est GFR (MDRD) Non-Af 56 L, BUN/Creatinine Ratio 11.9, Glucose 111 H, Lactic Acid 2.0, Calcium 8.7, Magnesium 1.6, Total Bilirubin 0.30 03/07/24 06:25: WBC 9.2, RBC 4.14 L, Hgb 11.9 L, Hct 38.7 L, MCV 93.5, MCH 28.7, MCHC 30.7 L, Plt Count 268, MPV 9.8, Immature Gran % (Auto) 1.400 H, Neut % (Auto) 67.5, Lymph % (Auto) 21.1, Barry % (Auto) 5.6, Eos % (Auto) 3.5, Baso % (Auto) 0.9, Absolute Neuts (auto) 6.2, Nucleated RBC % 0, Sodium 142, Potassium 4.2, Chloride 115 H, Carbon Dioxide 22.0, Anion Gap 6, BUN 15, Creatinine 1.23, Est GFR (MDRD) Af Amer 75, Est GFR (MDRD) Non-Af 62, BUN/Creatinine Ratio 12.2, Glucose 87, Calcium 8.2 L, Total Bilirubin 0.40 03/07/24 07:07: Lactic Acid 1.4 Rhythm: EKG: ECHO: Stress Test: Cardiac Cath: PCI: CT Surgery: Holter monitor: EPS: PPM: CXR: Chest CT Scan:
--- NOTE | 2024-03-07 13:28 | ECHOD_ITS ---
Reason For Study: CAD/ASHD Procedure This was a 2D Doppler, Color Flow transthoracic echocardiogram. Exam performed portable in patient room. Left Ventricle Normal LV size. Left ventricular systolic function is normal. The left ventricular ejection fraction is 60 %. No regional wall motion abnormalities noted. Right Ventricle Normal RV size. Normal systolic function. Atria The left atrium is moderately enlarged. Normal right atrium. Tricuspid Valve Normal tricuspid valve. Mild tricuspid valve insufficiency. Pulmonary artery systolic pressure is 30 mmHg. Aortic Valve Trisinus/trileaflet aortic valve. Mild focal aortic valve calcification. Pulmonic Valve Normal pulmonic valve. Great Vessels Calcified aortic root. Moderate atherosclerosis of the aortic arch. The pulmonary artery is normal size. Inferior vena cava collapse with respiration. Pericardium/Pleural No pericardial effusion. MMode/2D Measurements & Calculations LVIDd: 5.0 cm IVSd: 1.4 cm LVOT diam: 1.9 cm LVIDs: 4.1 cm LVPWd: 1.0 cm LVOT area: 2.9 cm2 RVDd: 3.4 cm FS: 18.8 % Ao root diam: 3.0 cm asc Aorta Diam: 3.1 cm LAV(MOD-bp): 81.9 ml LA dimension: 4.1 cm LAV(MOD-bp) Indexed: 40.6 ml/m2 LAV(MOD-sp2): 65.5 ml LAV(MOD-sp4): 89.2 ml LA A4 area: 26.0 cm2 RA A4 area: 16.9 cm2 TAPSE: 1.7 cm Time Measurements MV dec time: 0.17 sec Doppler Measurements & Calculations MV E max suman: 104.9 cm/sec Lat Peak E' Suman: 8.5 cm/sec Med Peak E' Suman: 8.3 cm/sec MV A max suman: 74.6 cm/sec E/E' lat: 12.3 E/E' med: 12.6 MV E/A: 1.4 MV V2 max: 122.7 cm/sec MV P1/2t max suman: 123.2 cm/sec Ao V2 max: 128.5 cm/sec MV max P.0 mmHg MV P1/2t: 75.5 msec Ao max P.6 mmHg MV V2 mean: 57.9 cm/sec MV dec slope: 478.1 cm/sec2 Ao V2 mean: 92.0 cm/sec MV mean P.7 mmHg MVA(P1/2t): 2.9 cm2 Ao mean P.8 mmHg MV V2 VTI: 45.8 cm Ao V2 VTI: 32.0 cm MVA(VTI): 1.4 cm2 AV (velocity ratio): 0.72 JESSICA(I,D): 2.1 cm2 JESSICA(V,D): 2.1 cm2 LV V1 max: 93.6 cm/sec MR max suman: 533.1 cm/sec SV(LVOT): 66.4 ml LV V1 max P.5 mmHg MR max P.7 mmHg LV V1 mean P.8 mmHg LV V1 mean: 63.9 cm/sec LV V1 VTI: 23.0 cm PA V2 max: 71.3 cm/sec TR max suman: 262.7 cm/sec PA max PG (full): 0.54 mmHg TR max P.6 mmHg ECHO/Echo Complete Interpretation Summary Normal LV size. Left ventricular systolic function is normal. The left ventricular ejection fraction is 60 %. Mild focal aortic valve calcification. Calcified aortic root. Ordering Physician: Clovis Robles Performed By: Kiran Frausto and Student
[2024-03-07] MEDS: Lisinopril 10 MG Tablet PO (22:49)
[2024-03-07] MEDS: Atorvastatin Calcium 80 MG Tablet PO (22:49)
[2024-03-08] VITALS (8 sets, daily range): BP systolic 147–169; BP diastolic 68–78; PULSE 60–77; RESP 15–18; TEMP 36.7–37.2; O2SAT 94–99; BMI 27.3
[2024-03-08] MEDS: Piperacil/Tazobactam 3.375 GM in 0.9% Normal Saline (50mL MB+) 50 ML IV ×3 (05:15→22:38)
[2024-03-08] MEDS: Metoprolol Tartrate 25 MG Tablet PO ×2 (05:22→21:53)
[2024-03-08] MEDS: Aspirin E.C. 81 MG Tablet PO (05:22)
[2024-03-08 07:17] LABS: Absolute Neutrophil Count 4.1 X10^3/uL (2.0-7.7); Basophil# 0.08 X10^3/uL; Basophil% 1.1 % (0-1); Eosinophil# 0.35 X10^3/uL; Eosinophils% 4.6 % (0-5); Lymphocyte % 31.7 % (19-41); Mean Corp Hgb Conc 31.6 g/dL (32-36); Mean Corpuscular Hgb 29.6 pg (27.0-32.0); Mean Corpuscular Volume 93.8 fL (80-94); Mean Platelet Vol. 9.7 fl (6.2-12.0); Monocyte# 0.55 X10^3/uL; Monocyte% 7.3 % (0-10); NRBC Flagged by Analyzer 0 % (0-5); Neutrophil # 4.07 X10^3/uL (2.7-7.7); Neutrophil % 53.8 % (47-70); Platelet Count 285 K/mm3 (150-450); RBC Distribution Width CV 14.6 % (11.6-14.6); RBC Distribution Width SD 50.4 fl (35.1-43.9); Red Blood Count 4.05 M/mm3 (4.6-6.2); White Blood Count 7.6 K/mm3 (4.4-11.0)
[2024-03-08 08:12] LABS: Anion Gap 5 (5-15); BUN 11 mg/dL (7-18); BUN/Creat Ratio 8.1 RATIO (10-20); Calcium,Total 8.7 mg/dL (8.5-10.1); Chloride 111 mmol/L (98-107); Creatinine, Serum 1.36 mg/dL (0.70-1.30); EST Glomerular Filtration Rate 55 mL/min (>60); Est Glom Filt Rate - Afr Amer 67 mL/min (>60); Estimated Creatinine Clearance 53.68 ml/min; Glucose 82 mg/dL (74-106); Potassium 4.3 mmol/L (3.5-5.1); Sodium Level 141 mmol/L (136-145)
--- NOTE | 2024-03-08 09:40 | PN.HOSP_ITS ---
Subjective Subjective Doing well, no issues overnight Objective Data Objective Data Vital Signs: Vital Signs Temp Pulse Resp BP Pulse Ox O2 Del Method 98.1 F 62 16 169/68 H 99 Room Air 03/08/24 05:17 03/08/24 05:22 03/08/24 05:17 03/08/24 05:22 03/08/24 05:17 03/08/24 05:17 Oxygen Delivery Method Room Air Weight: 190 lb 11.198 oz Body Mass Index (BMI) 27.3 Intake & Output: Intake and Output for Last 24 Hours 03/07/24 03/08/24 03/09/24 03:59 03:59 03:59 Intake Total 1000 / 1000 1969 Balance 1000 / 1000 1969 Lab / Micro Data 03/08/24 06:29 03/08/24 06:29 Labs: Laboratory Results - last 24 hr 03/07/24 06:25: Sodium 142, Potassium 4.2, Chloride 115 H, Carbon Dioxide 22.0, Anion Gap 6, BUN 15, Creatinine 1.23, Estim Creat Clear Calc 59.35, Est GFR (MDRD) Af Amer 75, Est GFR (MDRD) Non-Af 62, BUN/Creatinine Ratio 12.2, Glucose 87, Calcium 8.2 L, Total Bilirubin 0.40, AST 11 L, ALT 11 L, Alkaline Phosphatase 110, Total Protein 5.8 L, Albumin 2.6 L, Globulin 3.2, A lbumin/Globulin Ratio 0.8 L 03/08/24 06:29: WBC 7.6, RBC 4.05 L, Hgb 12.0 L, Hct 38.0 L, MCV 93.8, MCH 29.6, MCHC 31.6 L, RDW Std Deviation 50.4 H, RDW Coeff of [place] 14.6, Plt Count 285, MPV 9.7, Immature Gran % (Auto) 1.500 H, Neut % (Auto) 53.8, Lymph % (Auto) 31.7, [place] % (Auto) 7.3, Eos % (Auto) 4.6, Baso % (Auto) 1.1 H, Absolute Neuts (auto) 4.1, Absolute Lymphs (auto) 2.40, Nucleated RBC % 0, Sodium 141, Potassium 4.3, Chloride 111 H, Carbon Dioxide 25.0, Anion Gap 5, BUN 11, Creatinine 1.36 H, Estim Creat Clear Calc 53.68, Est GFR (MDRD) Af Amer 67, Est GFR (MDRD) Non-Af 55 L, BUN/Creatinine Ratio 8.1 L, Glucose 82, Calcium 8.7 Radiography Diagnostic Testing: Radiology Impression Echocardiogram 03/07/24 13:28 Interpretation Summary Normal LV size. Left ventricular systolic function is normal. The left ventricular ejection fraction is 60 %. Mild focal aortic valve calcification. Calcified aortic root. Ordering Physician: Clovis Robles Performed By: Kiran Frausto and Student Physical Exam Narrative General: Alert, Oriented x3, Cooperative, No apparent distress HEENT: Atraumatic, PERRLA, EOMI, Normocephalic Oral: Moist Mucosa Neck: Supple, No JVD Lungs: Diminished, Normal air movement, No rhonchi, No wheeze, No rales Cardiovascular: Regular rate, Regular Rhythm, Normal S1, Normal S2, No murmurs Abdomen: Soft, Non Tender, Non-Distended, No Hepato-splenomegaly Extremities: No edema, Capillary Refill Less than 3 Seconds Skin: No rashes, No breakdown Musculoskeletal: No Tenderness to Palpation of Joints or Extremities Neurological: No focal neurological deficits, Motor Exam 5/5 strength throughout, Sensory exam intact to light touch and pain Psych/Mental Status: Normal Affect, Appropriate Assessment & Plan Assessment/Plan (1) Acute epigastric pain: PLAN: Plan 1. Acute cholecystitis ? Continue with IV fluids ? Will advance diet while were waiting for surgery on secondary to Plavix ? Low risk for cardiology evaluation, echocardiogram with an EF of 60% 2. CAD status post CABG and stents/essential HTN/HLD ? Continue with aspirin but holding Plavix ? Continue with Lipitor ? Continue with his home blood pressure medications ? Will monitor make adjustments as necessary ? Appreciate cardiology's assistance 3. Rheumatoid arthritis ? Stable ? Will hold Plaquenil pending surgery 4. GERD ? Stable ? Continue with PPI DVT: Lovenox Charges/Coding Visit Charges Inpatient E&M: 37165 Subs Hosp L2
[2024-03-08] MEDS: Enoxaparin 40 MG/0.4 ML Syringe SC (09:52)
[2024-03-08] MEDS: Pantoprazole Sodium 40 MG in 0.9% Normal Saline (100mL MB+) 100 ML 330 MG IV ×2 (09:52→21:55)
--- NOTE | 2024-03-08 18:55 | NURSING ---
pt denies pain all day, denies n/v and got increased diet and tolerated that well today, has been up ad santi in room all day
[2024-03-08] MEDS: Lisinopril 10 MG Tablet PO (21:53)
[2024-03-08] MEDS: Atorvastatin Calcium 80 MG Tablet PO (21:53)
[2024-03-09] VITALS (10 sets, daily range): BP systolic 134–177; BP diastolic 65–77; PULSE 57–68; RESP 15–20; TEMP 36.6–36.9; O2SAT 92–98; BMI 27.4
[2024-03-09] MEDS: oxyCODONE 5 MG Tablet PO (01:40)
[2024-03-09] MEDS: HYDROmorphone 1 MG/ML Syringe IV (02:05)
[2024-03-09] MEDS: Ondansetron 4 MG/2 ML Vial IV (02:15)
[2024-03-09] MEDS: Piperacil/Tazobactam 3.375 GM in 0.9% Normal Saline (50mL MB+) 50 ML IV ×3 (06:18→22:27)
[2024-03-09 07:03] LABS: Absolute Lymphocyte Count 2.36 X10^3/uL (0.83-4.51); Absolute Neutrophil Count 4.1 X10^3/uL (2.0-7.7); Basophil% 1.3 % (0-1); Eosinophil# 0.35 X10^3/uL; Eosinophils% 4.6 % (0-5); Hematocrit 38.3 % (40-54); Lymphocyte # 2.36 X10^3/ul (0.83-4.51); Lymphocyte % 31.3 % (19-41); Mean Corp Hgb Conc 31.3 g/dL (32-36); Mean Corpuscular Hgb 28.8 pg (27.0-32.0); Mean Corpuscular Volume 92.1 fL (80-94); Mean Platelet Vol. 9.8 fl (6.2-12.0); Monocyte# 0.51 X10^3/uL; Monocyte% 6.8 % (0-10); NRBC Flagged by Analyzer 0 % (0-5); Neutrophil # 4.11 X10^3/uL (2.7-7.7); Neutrophil % 54.5 % (47-70); Platelet Count 275 K/mm3 (150-450); RBC Distribution Width CV 14.4 % (11.6-14.6); Red Blood Count 4.16 M/mm3 (4.6-6.2); White Blood Count 7.5 K/mm3 (4.4-11.0)
[2024-03-09 07:12] LABS: Anion Gap 4 (5-15); BUN 11 mg/dL (7-18); BUN/Creat Ratio 8.1 RATIO (10-20); Calcium,Total 8.5 mg/dL (8.5-10.1); Chloride 110 mmol/L (98-107); Creatinine, Serum 1.35 mg/dL (0.70-1.30); EST Glomerular Filtration Rate 56 mL/min (>60); Est Glom Filt Rate - Afr Amer 68 mL/min (>60); Estimated Creatinine Clearance 54.07 ml/min; Glucose 76 mg/dL (74-106); Potassium 4.4 mmol/L (3.5-5.1); Sodium Level 139 mmol/L (136-145)
--- NOTE | 2024-03-09 07:25 | PN.SURG_ITS ---
Subjective Subjective Patient reports he had some pain at 1:30 AM. Other than that he did well yesterday. Objective Data Objective Data Vital Signs: Vital Signs Temp Pulse Resp BP Pulse Ox O2 Del Method 97.9 F 57 L 15 161/77 H 96 Room Air 03/09/24 06:17 03/09/24 06:17 03/09/24 06:17 03/09/24 06:17 03/09/24 06:17 03/09/24 06:17 Oxygen Delivery Method Room Air Weight: 192 lb 0.362 oz Body Mass Index (BMI) 27.4 Intake & Output: Intake and Output for Last 24 Hours 03/07/24 03/08/24 03/09/24 23:59 23:59 23:59 Intake Total 2920 / 2920 1393 / 1393 50 / 50 Balance 2920 / 2920 1393 / 1393 50 / 50 Lab / Micro Data 03/09/24 06:15 03/09/24 06:15 Labs: Laboratory Results - last 24 hr 03/08/24 06:29: Sodium 141, Potassium 4.3, Chloride 111 H, Carbon Dioxide 25.0, Anion Gap 5, BUN 11, Creatinine 1.36 H, Estim Creat Clear Calc 53.68, Est GFR (MDRD) Af Amer 67, Est GFR (MDRD) Non-Af 55 L, BUN/Creatinine Ratio 8.1 L, Glucose 82, Calcium 8.7 03/09/24 06:15: WBC 7.5, RBC 4.16 L, Hgb 12.0 L, Hct 38.3 L, MCV 92.1, MCH 28.8, MCHC 31.3 L, RDW Std Deviation 49.0 H, RDW Coeff of [place] 14.4, Plt Count 275, MPV 9.8, Immature Gran % (Auto) 1.500 H, Neut % (Auto) 54.5, Lymph % (Auto) 31.3, [place] % (Auto) 6.8, Eos % (Auto) 4.6, Baso % (Auto) 1.3 H, Absolute Neuts (auto) 4.1, Absolute Lymphs (auto) 2.36, Nucleated RBC % 0, Sodium 139, Potassium 4.4, Chloride 110 H, Carbon Dioxide 25.0, Anion Gap 4 L, BUN 11, Creatinine 1.35 H, Estim Creat Clear Calc 54.07, Est GFR (MDRD) Af Amer 68, Est GFR (MDRD) Non-Af 56 L, BUN/Creatinine Ratio 8.1 L, Glucose 76, Calcium 8.5 Physical Exam Const oriented x3 and no apparent distress Resp normal respiratory effort GI soft to palpation and non-tender Assessment & Plan Assessment/Plan (1) Acute calculous cholecystitis: PLAN: The patient is doing well. Continue diet today and I have made him n.p.o. after midnight. Continue antibiotics. Plan for laparoscopic cholecystectomy tomorrow afternoon. I discussed the procedure in detail with the patient. I discussed the risks, benefits, and alternatives of the procedure. I discussed the risks including but not limited to bleeding, infection, injury to surrounding organs such as the liver, bile duct, bowels. I did discuss the possibility of having to convert to an open procedure as well as the possibility that if any injuries occurred this may necessitate further surgery at a tertiary care center. Jarred Waddell MD Pager: [facility] [place] [facility] [address] [place] [address] [address] [place] [address] Office:
--- NOTE | 2024-03-09 08:45 | PCM.PN.HOSP ---
Subjective Subjective No issues overnight, pain is controlled Objective Data Objective Data Vital Signs: Vital Signs Temp Pulse Resp BP Pulse Ox O2 Del Method 97.9 F 57 L 15 161/77 H 94 Room Air 03/09/24 06:17 03/09/24 06:17 03/09/24 06:17 03/09/24 06:17 03/09/24 07:25 03/09/24 07:25 Oxygen Delivery Method Room Air Weight: 192 lb 0.362 oz Body Mass Index (BMI) 27.4 Intake & Output: Intake and Output for Last 24 Hours 03/08/24 03/09/24 03/10/24 03:59 03:59 03:59 Intake Total 1969 1393 / 1393 Balance 1969 1393 / 1393 Lab / Micro Data 03/09/24 06:15 03/09/24 06:15 Labs: Laboratory Results - last 24 hr 03/09/24 06:15: WBC 7.5, RBC 4.16 L, Hgb 12.0 L, Hct 38.3 L, MCV 92.1, MCH 28.8, MCHC 31.3 L, RDW Std Deviation 49.0 H, RDW Coeff of [place] 14.4, Plt Count 275, MPV 9.8, Immature Gran % (Auto) 1.500 H, Neut % (Auto) 54.5, Lymph % (Auto) 31.3, [place] % (Auto) 6.8, Eos % (Auto) 4.6, Baso % (Auto) 1.3 H, Absolute Neuts (auto) 4.1, Absolute Lymphs (auto) 2.36, Nucleated RBC % 0, Sodium 139, Potassium 4.4, Chloride 110 H, Carbon Dioxide 25.0, Anion Gap 4 L, BUN 11, Creatinine 1.35 H, Estim Creat Clear Calc 54.07, Est GFR (MDRD) Af Amer 68, Est GFR (MDRD) Non-Af 56 L, BUN/Creatinine Ratio 8.1 L, Glucose 76, Calcium 8.5 Physical Exam Narrative General: Alert, Oriented x3, Cooperative, No apparent distress HEENT: Atraumatic, PERRLA, EOMI, Normocephalic Oral: Moist Mucosa Neck: Supple, No JVD Lungs: Diminished, Normal air movement, No rhonchi, No wheeze, No rales Cardiovascular: Regular rate, Regular Rhythm, Normal S1, Normal S2, No murmurs Abdomen: Soft, Non Tender, Non-Distended, No Hepato-splenomegaly Extremities: No edema, Capillary Refill Less than 3 Seconds Skin: No rashes, No breakdown Musculoskeletal: No Tenderness to Palpation of Joints or Extremities Neurological: No focal neurological deficits, Motor Exam 5/5 strength throughout, Sensory exam intact to light touch and pain Psych/Mental Status: Normal Affect, Appropriate Assessment & Plan Assessment/Plan (1) Acute epigastric pain: PLAN: Plan 1. Acute cholecystitis ?Will advance his diet pending surgery tomorrow, n.p.o. at midnight ?Continue with Zosyn ? Low risk for cardiology evaluation, echocardiogram with an EF of 60% 2. CAD status post CABG and stents/essential HTN/HLD ? Continue with aspirin but holding Plavix ? Continue with Lipitor ? Continue with his home blood pressure medications ? Will monitor make adjustments as necessary ? Appreciate cardiology's assistance 3. Rheumatoid arthritis ? Stable ? Will hold Plaquenil pending surgery 4. GERD ? Stable ? Continue with PPI DVT: Ziggy Charges/Coding Visit Charges Inpatient E&M: 91156 Subs Hosp L2
[2024-03-09] MEDS: Enoxaparin 40 MG/0.4 ML Syringe SC (08:53)
[2024-03-09] MEDS: Metoprolol Tartrate 25 MG Tablet PO ×2 (08:54→21:06)
[2024-03-09] MEDS: Aspirin E.C. 81 MG Tablet PO (08:54)
[2024-03-09] MEDS: Pantoprazole Sodium 40 MG in 0.9% Normal Saline (100mL MB+) 100 ML 330 MG IV ×2 (10:44→21:12)
[2024-03-09] MEDS: Atorvastatin Calcium 80 MG Tablet PO (21:05)
[2024-03-09] MEDS: Lisinopril 10 MG Tablet PO (21:06)
[2024-03-09] MEDS: 0.9% Saline Lock 10 ML Syringe IV (21:12)
[2024-03-10] VITALS (17 sets, daily range): BP systolic 130–190; BP diastolic 58–79; PULSE 55–81; RESP 16–18; TEMP 36.2–36.6; O2SAT 92–100; BMI 27.4
[2024-03-10] MEDS: Piperacil/Tazobactam 3.375 GM in 0.9% Normal Saline (50mL MB+) 50 ML IV ×2 (05:41→14:32)
[2024-03-10] MEDS: 0.9% Saline Lock 10 ML Syringe IV (05:41)
--- NOTE | 2024-03-10 06:00 | EKG12_ITS ---
Test Reason : POSTOP Blood Pressure : / mmHG Vent. Rate : 071 BPM Atrial Rate : 071 BPM P-R Int : 176 ms QRS Dur : 114 ms QT Int : 446 ms P-R-T Axes : 047 026 078 degrees QTc Int : 484 ms Normal sinus rhythm Possible Left atrial enlargement Inferior infarct , age undetermined Abnormal ECG When compared with ECG of 10-MAR-2024 05:25, No significant change was found Confirmed by Fidel Taylor ([id number]), food expeditor FLORI SUTHERLAND ([id number]) on 03/16/2024 2:03:11 PM Referred By: RL Confirmed By:Fidel Taylor
[2024-03-10 06:27] LABS: Absolute Lymphocyte Count 2.88 X10^3/uL (0.83-4.51); Absolute Neutrophil Count 4.2 X10^3/uL (2.0-7.7); Basophil# 0.07 X10^3/uL; Basophil% 0.9 % (0-1); Eosinophil# 0.41 X10^3/uL; Hematocrit 39.5 % (40-54); Hemoglobin 12.3 g/dL (13.0-16.5); Lymphocyte # 2.88 X10^3/ul (0.83-4.51); Lymphocyte % 35.2 % (19-41); Mean Corp Hgb Conc 31.1 g/dL (32-36); Mean Corpuscular Hgb 28.9 pg (27.0-32.0); Mean Corpuscular Volume 92.9 fL (80-94); Mean Platelet Vol. 9.6 fl (6.2-12.0); Monocyte# 0.56 X10^3/uL; Monocyte% 6.8 % (0-10); NRBC Flagged by Analyzer 0 % (0-5); Neutrophil # 4.19 X10^3/uL (2.7-7.7); Neutrophil % 51.1 % (47-70); Platelet Count 275 K/mm3 (150-450); RBC Distribution Width CV 14.6 % (11.6-14.6); RBC Distribution Width SD 49.9 fl (35.1-43.9); Red Blood Count 4.25 M/mm3 (4.6-6.2); White Blood Count 8.2 K/mm3 (4.4-11.0)
[2024-03-10 07:17] LABS: Anion Gap 3 (5-15); BUN 10 mg/dL (7-18); BUN/Creat Ratio 7.3 RATIO (10-20); Calcium,Total 8.5 mg/dL (8.5-10.1); Chloride 113 mmol/L (98-107); Creatinine, Serum 1.37 mg/dL (0.70-1.30); EST Glomerular Filtration Rate 55 mL/min (>60); Est Glom Filt Rate - Afr Amer 66 mL/min (>60); Estimated Creatinine Clearance 53.28 ml/min; Glucose 73 mg/dL (74-106); Potassium 4.4 mmol/L (3.5-5.1); Sodium Level 141 mmol/L (136-145)
--- NOTE | 2024-03-10 09:23 | PN.HOSP_ITS ---
Subjective Subjective Doing well, no issues overnight. Currently n.p.o. awaiting surgery Objective Data Objective Data Vital Signs: Vital Signs Temp Pulse Resp BP Pulse Ox O2 Del Method 97.3 F L 55 L 18 155/58 H 95 Room Air 03/10/24 08:38 03/10/24 09:20 03/10/24 08:38 03/10/24 08:38 03/10/24 09:15 03/10/24 09:15 Oxygen Delivery Method Room Air Weight: 191 lb 12.835 oz Body Mass Index (BMI) 27.4 Intake & Output: Intake and Output for Last 24 Hours 03/09/24 03/10/24 03/11/24 03:59 03:59 03:59 Intake Total 1393 / 1393 670 / 670 Balance 1393 / 1393 670 / 670 Lab / Micro Data 03/10/24 05:44 03/10/24 05:44 Labs: Laboratory Results - last 24 hr 03/10/24 05:44: WBC 8.2, RBC 4.25 L, Hgb 12.3 L, Hct 39.5 L, MCV 92.9, MCH 28.9, MCHC 31.1 L, RDW Std Deviation 49.9 H, RDW Coeff of Sierra 14.6, Plt Count 275, MPV 9.6, Immature Gran % (Auto) 1.000 H, Neut % (Auto) 51.1, Lymph % (Auto) 35.2, [place] % (Auto) 6.8, Eos % (Auto) 5.0, Baso % (Auto) 0.9, Absolute Neuts (auto) 4.2, Absolute Lymphs (auto) 2.88, Nucleated RBC % 0, Sodium 141, Potassium 4.4, Chloride 113 H, Carbon Dioxide 25.0, Anion Gap 3 L, BUN 10, Creatinine 1.37 H, Estim Creat Clear Calc 53.28, Est GFR (MDRD) Af Amer 66, Est GFR (MDRD) Non-Af 55 L, BUN/Creatinine Ratio 7.3 L, Glucose 73 L, Calcium 8.5 Physical Exam Narrative General: Alert, Oriented x3, Cooperative, No apparent distress HEENT: Atraumatic, PERRLA, EOMI, Normocephalic Oral: Moist Mucosa Neck: Supple, No JVD Lungs: Diminished, Normal air movement, No rhonchi, No wheeze, No rales Cardiovascular: Regular rate, Regular Rhythm, Normal S1, Normal S2, No murmurs Abdomen: Soft, Non Tender, Non-Distended, No Hepato-splenomegaly Extremities: No edema, Capillary Refill Less than 3 Seconds Skin: No rashes, No breakdown Musculoskeletal: No Tenderness to Palpation of Joints or Extremities Neurological: No focal neurological deficits, Motor Exam 5/5 strength throughout, Sensory exam intact to light touch and pain Psych/Mental Status: Normal Affect, Appropriate Assessment & Plan Assessment/Plan (1) Acute epigastric pain: PLAN: Plan 1. Acute cholecystitis ? Currently n.p.o. ?Continue with Zosyn ? Surgery this afternoon, it is possible he could be discharged after depending on his recovery 2. CAD status post CABG and stents/essential HTN/HLD ? Continue with aspirin but holding Plavix ? Continue with Lipitor ? Continue with his home blood pressure medications ? Will monitor make adjustments as necessary ? Appreciate cardiology's assistance 3. Rheumatoid arthritis ? Stable ? Will hold Plaquenil pending surgery 4. GERD ? Stable ? Continue with PPI DVT: Ziggy Charges/Coding Visit Charges Inpatient E&M: 83457 Subs Hosp L2
[2024-03-10] MEDS: Pantoprazole Sodium 40 MG in 0.9% Normal Saline (100mL MB+) 100 ML 330 MG IV ×2 (09:54→21:02)
[2024-03-10] MEDS: 0.9% Normal Saline (1000mL) 1,000 ML 15 ML IV (11:00)
[2024-03-10] MEDS: Bupiv/Epi 0.25% 30 ML Vial (12:25)
--- NOTE | 2024-03-10 12:46 | PCM.POST.ANE ---
Anesthesia: Postop Eval I Current Vital Signs Temperature: 97.2 F Pulse Rate: 76 Blood Pressure: 188/78 Respiratory Rate: 16 Pulse Ox: 100 Oxygen Delivery Method: Simple Mask Oxygen Flow Rate (L/min): 6 Assessment Airway patent: Yes Spontaneous unlabored respirations: Yes Mental status: Awake and Calm nausea: No Vomiting: No Anesthesia Complication: No Fluid Hydration Crystalloid volume administer (ml): 600 Total IV fluid infused: 600 Progress Note Anesthesia document: Postop Eval 1 completed: Yes
--- NOTE | 2024-03-10 12:48 | POSTOPAN2_ITS ---
Anesthesia Postop Eval I Sum Postop Eval Completion status Anesthesia document: Postop Eval 1 completed: Yes Anesthesia Postop Eval I Summary Anesthesia Postop Eval I Summary: Anesthesia Postop Eval I: Assessment Summary Airway patent Yes 03/10/24 12:47 MAINTENANCE [email or web address] Spontaneous unlabored Yes 03/10/24 12:47 MAINTENANCE JOB [email or web address] respirations Mental status Awake,Calm 03/10/24 12:47 MAINTENANCE [email or web address] nausea No 03/10/24 12:47 MAINTENANCE JOB [email or web address] Vomiting No 03/10/24 12:47 MAINTENANCE JOB [email or web address] Anesthesia Postop Eval I: Fluid Summary Crystalloid volume administer 600 03/10/24 12:47 MAINTENANCE [email or web address] [email or web address] (ml) Colloids volume administered ( ml) Blood Product volume administered (ml) Total IV fluid infused 600 03/10/24 12:47 MAINTENANCE [email or web address] [email or web address] Anesthesia Postop Eval I: Summary Notes Anesthesia Complication No 03/10/24 12:47 MAINTENANCE JOB [email or web address].[email or web address] Anesthesia Complication Comment: Post-operative progress note Anesthesia: Postop Eval II Evaluation Mental status: Awake Pain Level: 0 nausea: No Vomiting: No
--- NOTE | 2024-03-10 12:48 | PCM.POSTANE2 ---
Anesthesia Postop Eval I Sum Postop Eval Completion status Anesthesia document: Postop Eval 1 completed: Yes Anesthesia Postop Eval I Summary Anesthesia Postop Eval I Summary: Anesthesia Postop Eval I: Assessment Summary Airway patent Yes 03/10/24 12:47 [email or web address] Spontaneous unlabored Yes 03/10/24 12:47 MACHINE [email or web address] respirations Mental status Awake,Calm 03/10/24 12:47 [email or web address] nausea No 03/10/24 12:47 MACHINE [email or web address] Vomiting No 03/10/24 12:47 MACHINE [email or web address] Anesthesia Postop Eval I: Fluid Summary Crystalloid volume administer 600 03/10/24 12:47 [email or web address] (ml) Colloids volume administered ( ml) Blood Product volume administered (ml) Total IV fluid infused 600 03/10/24 12:47 MACHINE [email or web address] Anesthesia Postop Eval I: Summary Notes Anesthesia Complication No 03/10/24 12:47 MACHINE [email or web address].IVONNE Anesthesia Complication Comment: Post-operative progress note Anesthesia: Postop Eval II Evaluation Mental status: Awake Pain Level: 0 nausea: No Vomiting: No
--- NOTE | 2024-03-10 13:13 | OP.PCM_ITS ---
Report of Operation Date of Procedure: 03/10/24 Pre-Operative Diagnosis: Acute cholecystitis Post-Operative Diagnosis: Acute cholecystitis Surgery/Procedure Performed:: Laparoscopic cholecystectomy Specimen's removed: Gallbladder Estimated Blood Loss (mL): 20 Description of Procedure: After obtaining informed consent patient was brought back to the operating room. General anesthesia was induced. The abdomen was prepped and draped in usual sterile fashion. A small midline incision was made superior to the umbilicus and deepened to the level of fascia. The fascia was elevated and incised. Next the peritoneum was elevated and incised in the same fashion. Finger sweep was performed and the Cottrell trocar was placed into the abdomen. The balloon was inflated. The abdomen was inflated to 15 mmHg. Next a camera was introduced into the abdomen and the abdomen was inspected. Next under direct visualization three 5-mm ports were placed one subxiphoid and 2 subcostal. Next the gall bladder was elevated and retracted toward the right shoulder. The peritoneum was stripped from the gallbladder. The infundibulum was located and retracted laterally. Next the triangle of Calot was dissected and the cystic duct and cystic artery were identified. Cholangiograms were unable to be performed as there was a cystic duct stone. Three hemolock clips were placed across the cystic duct below the stone. The cystic duct was then divided leaving 2 clips on the stump. The cystic artery was clipped and divided in the same fashion. The hook cautery was then used to take the gallbladder off of the gallbladder bed. Hemostasis was obtained. Gallbladder fossa was irrigated and no active bleeding or bile leakage was noted. Next the camera was introduced in the subxiphoid port. An Endopouch bag was placed through the umbilical port and the gallbladder was placed into it. The gallbladder was then removed through the umbilical incision. The camera was then reinserted through the umbilical port. Surgicel powder was placed over the gallbladder fossa. The gallbladder fossa was inspected once more and noted to be hemostatic with no leaking bile. The abdomen was suctioned dry. The 5 mm ports were removed under direct visualization. The umbilical port was then removed and the air was removed from the abdomen. Next using an 0 Vicryl suture the umbilical fascia was closed in a [id number] fashion. The umbilical port site was irrigated local anesthetic was administered to all the incisions. All the incisions were closed with interrupted subcuticular 4-0 Monocryl sutures followed by Steri-Strips and dressings. The patient was awoken and taken to PACU in stable condition. Admit VTE Documentation VTE Mechan Device Prophylaxis: SCD's
[2024-03-10 13:34] LABS: Troponin-I HS 14 pg/mL (3.0-78.0)
--- NOTE | 2024-03-10 14:15 | GALL_PTH ---
PATIENT: CHEY ROSADO LOC: MS3 U#:[id number] AGE/SX: 68/M ROOM: OK310 RE03/07/[address]: Dr. Tommy Washington MD : 1955 BED: 1 DIS: 03/11/2024 SPEC #: [id number] RECD: 03/10/24 17:52 STATUS: AVELINO THURSTON #: [id number] RICHARD: 03/10/24 14:[address]: Jarred Waddell DEPT: SURGICAL PATHOLOGY RECD BY: Gabby Restrepo ENTERED: 03/11/24 10:17 SP TYPE: GALLBLADDE OTHR DR: MD Dr. Annika Morris MD Dr. Nicholas F Kotsonis, MD Dr. Nagapradee Nagajothi, MD Tissues: Gallbladder, NOS Procedures: Surgery Specimen Level III HEADER OPERATION: Laparoscopic, cholecystectomy PRE-OP DIAGNOSIS: Acute cholecystitis TISSUE SUBMITTED: Gallbladder MICROSCOPIC DIAGNOSIS Gallbladder, cholecystectomy: Chronic cholecystitis. Adherent liver with mild chronic inflammation. AM. 03/14 MICROSCOPIC DESCRIPTION Slides are reviewed. GROSS DESCRIPTION Received is one container labeled with the patient's name and designated gallbladder. The specimen consists of a gallbladder measuring 7.0 x 4.0 x 2.0 cm. The external surface is smooth and glistening. Focally, it is granular, hemorrhagic and contains cautery artifact. The lumen of the gallbladder contains greenish mucoid bile. No calculi are identified. The mucosa is bile-stained and without any mass lesions. The gallbladder wall averages 0.6cm in thickness and is free of mass lesions. Wall Scraper sections of the gallbladder and the cystic duct at margin of resection are submitted in one cassette. / AM: 03/11/2024 TC:3 CPT: 79637
[2024-03-10] MEDS: HYDROmorphone 1 MG/ML Syringe IV (14:31)
[2024-03-10] MEDS: Ondansetron 4 MG/2 ML Vial IV (21:00)
[2024-03-10] MEDS: oxyCODONE 5 MG Tablet PO (21:00)
[2024-03-10] MEDS: Acetaminophen 325 MG Tablet 650 MG PO (21:01)
[2024-03-10] MEDS: Metoprolol Tartrate 25 MG Tablet PO (21:03)
[2024-03-10] MEDS: Lisinopril 10 MG Tablet PO (21:03)
[2024-03-10] MEDS: Atorvastatin Calcium 80 MG Tablet PO (21:03)
[2024-03-11] VITALS (9 sets, daily range): BP systolic 131–174; BP diastolic 65–80; PULSE 70–81; RESP 16; TEMP 36.6–37.1; O2SAT 95–97; BMI 27.4
[2024-03-11] MEDS: hydrALAZINE 20 MG/ML Vial 10 MG IV ×2 (00:43→08:46)
[2024-03-11] MEDS: 0.9% Saline Lock 10 ML Syringe IV (00:45)
[2024-03-11] MEDS: Acetaminophen 325 MG Tablet 650 MG PO (00:49)
[2024-03-11] MEDS: oxyCODONE 5 MG Tablet PO (00:49)
[2024-03-11 05:49] LABS: Absolute Lymphocyte Count 1.45 X10^3/uL (0.83-4.51); Absolute Neutrophil Count 9.8 X10^3/uL (2.0-7.7); Basophil# 0.01 X10^3/uL; Basophil% 0.1 % (0-1); Hematocrit 38.5 % (40-54); Hemoglobin 12.1 g/dL (13.0-16.5); Lymphocyte # 1.45 X10^3/ul (0.83-4.51); Mean Corp Hgb Conc 31.4 g/dL (32-36); Mean Corpuscular Hgb 28.8 pg (27.0-32.0); Mean Corpuscular Volume 91.7 fL (80-94); Mean Platelet Vol. 9.8 fl (6.2-12.0); Monocyte# 0.78 X10^3/uL; Monocyte% 6.5 % (0-10); NRBC Flagged by Analyzer 0 % (0-5); Neutrophil # 9.77 X10^3/uL (2.7-7.7); Neutrophil % 80.8 % (47-70); Platelet Count 285 K/mm3 (150-450); RBC Distribution Width CV 14.4 % (11.6-14.6); RBC Distribution Width SD 48.7 fl (35.1-43.9); White Blood Count 12.1 K/mm3 (4.4-11.0)
[2024-03-11 06:21] LABS: Anion Gap 4 (5-15); BUN 12 mg/dL (7-18); BUN/Creat Ratio 8.5 RATIO (10-20); Calcium,Total 8.7 mg/dL (8.5-10.1); Chloride 110 mmol/L (98-107); Creatinine, Serum 1.41 mg/dL (0.70-1.30); EST Glomerular Filtration Rate 53 mL/min (>60); Est Glom Filt Rate - Afr Amer 64 mL/min (>60); Estimated Creatinine Clearance 51.77 ml/min; Glucose 173 mg/dL (74-106); Potassium 4.3 mmol/L (3.5-5.1); Sodium Level 138 mmol/L (136-145)
[2024-03-11] MEDS: Metoprolol Tartrate 25 MG Tablet PO (08:45)
[2024-03-11] MEDS: Aspirin E.C. 81 MG Tablet PO (08:45)
--- NOTE | 2024-03-11 09:42 | DCINST_ITS ---
Discharge Instructions Diet Discharge Diet: Low fat / Low cholesterol Activity Discharge Activity: May Not Drive (While on narcotics) Lifting Restrictions: 10 pounds for 4 weeks Dressing / Incision Call your doctor if your incision/area has: Continuous Slow Oozing, Increased Redness and Foul Smelling Discharge Call your doctor if you observe: Fever of 101 or Higher, Shortness of breath, Dizziness, Fainting spells, Swelling in the ankles, Chest pain and Increased palpitations (irregular heartbeat) Follow Up Care Test Results: Test results from this visit will be discussed in further detail at your follow- up appointment, if applicable. Discharge Plan Admission Admit Date/Time: 03/07/24 04:08 Attending Provider: Tommy Washington Primary Care Provider: Annika Villasenor Consulting Providers: Michelle Arteaga; Jarred Waddell; Aruna Tovar Discharge Orders/Prescriptions Prescriptions: New oxycodone 5 mg Tablet 5 mg PO Q4H PRN PRN (Reason: Pain Score 4-10) 3 Days Qty: 10 0RF Continued clopidogrel [Plavix] 75 mg tablet 75 mg PO QDAY atorvastatin 80 mg tablet 80 mg PO QHS nitroglycerin 0.4 mg tablet, sublingual 0.4 mg SUBLINGUAL Q5-15M PRN (Reason: Pain, Mild) Rx Instructions: until response; do not exceed 3 doses per episode lisinopril 5 mg tablet 5 mg PO QHS aspirin 81 MG tablet 81 mg PO DAILY@0800 pantoprazole 40 mg tablet,delayed release (DR/EC) 40 mg PO DAILY hydroxychloroquine 200 mg tablet 200 mg PO BID omeprazole 40 mg capsule,delayed release(DR/EC) 40 mg PO DAILY Qty: 30 0RF prednisone 10 mg tablet 10 mg PO DAILY metoprolol tartrate 25 mg tablet 25 mg PO BID Referrals / Follow Up: Jarred Waddell MD [Med Staff - Active Staff] - Within 1 Month Annika Villasenor MD [Primary Care Provider] - Within 1 Week Disposition Disposition (needs filled in before D/C Order can be placed): Home, Self Care
--- NOTE | 2024-03-11 10:45 | CASEMGMT ---
GERONIMO CM into pt room, pt lying in bed with visitor at bedside. Pt denies any homegoing needs. Pt does not have rx coverage and is aware that pain meds cannot be used for [facility]. That is the only med for the pt. Pt states he can afford this. Pt states he is ready to dc home.
[2024-03-11] MEDS: Enoxaparin 40 MG/0.4 ML Syringe SC (11:15)
--- NOTE | 2024-03-11 14:27 | PCM.DC.SUM ---
Providers Date of Admission: 03/07/24 Primary Care Physician: Dr. Annika Villasenor MD Consultations 03/07/24 05:02 Consult: Cardiology Routine Consulting Provider: Michelle Arteaga Reason for Consult: Preop clearance, Acute divine, CAD/PAD notable history EMERGENT Consult: No Notified: Yes Date Notified: 03/07/24 Time Notified: 04:43 Method of Notification: Text Consult: General Surgery Routine Consulting Provider: Jarred Waddell Reason for Consult: Acute cholecystitis EMERGENT Consult: No Notified: Yes Date Notified: 03/07/24 Time Notified: 04:09 Method of Notification: ED Physician Initiated Reason For Visit: INTRACTABLE ABDOMINAL PAIN Diagnosis Discharge Diagnosis (1) Acute epigastric pain: Status: Acute Code(s): R10.13 - Epigastric pain Medications at Discharge Home Medications clopidogrel 75 mg tablet (Plavix) 75 mg PO QDAY 07/24/17 aspirin 81 mg tablet,delayed release 81 mg PO DAILY@0800 01/30/19 atorvastatin 80 mg tablet 80 mg PO QHS 02/16/19 lisinopril 5 mg tablet 5 mg PO QHS blood pressure 08/08/19 nitroglycerin 0.4 mg sublingual tablet 0.4 mg sublingual Q5-15M PRN Pain, Mild 08/08/19 pantoprazole 40 mg tablet,delayed release 40 mg PO DAILY GERD 03/31/21 omeprazole 40 mg capsule,delayed release 40 mg PO DAILY #30 caps 12/15/23 hydroxychloroquine 200 mg tablet 200 mg PO BID 02/22/24 prednisone 10 mg tablet 10 mg PO DAILY 03/05/24 metoprolol tartrate 25 mg tablet 25 mg PO BID Heart 03/07/24 oxycodone 5 mg tablet 5 mg PO Q4H PRN PRN Pain Score 4-10 3 days #10 tabs 03/11/24 Hospital Course Operations cholecystecomy Procedures 2-D Echocardiogram Summary of Care Provided Minutes Spent on Discharge: 32 Hospital Course: Per HPI: The patient is a 68 y/o M w/ PMHx: CKD stage III unclear subtype, Chronic anemia, Hx ischemic colitis suspected previously secondary to hypoperfusion event, CAD s/p NSTEMI, CABG x 3 and PCI (PCI/VICKIE to LCX/OM2 06/08/19; PCI/stent to LAD, D1 and LCX 09/16), HTN, HLD, AAA status postrepair 1994 with endovascular stenting placed multiple years previously with currently noted 4.7 cm saccular without rupture PAD status post aortoiliac femoral bypass, Rheumatoid arthritis, GERD, Tobacco use, Chronic abdominal pain, recent 03/05/2024 ED visit secondary to recurrent epigastric abdominal pain which has been seen multiple times with associated nausea without emesis with recent upper endoscopy with moderate Schatzki's ring suspicious of duodenal fistula and colonoscopy with nonbleeding ulcer at mucosa of the sigmoid colon with ischemic changes and capsule endoscopy with findings suggestive of celiac versus IBD versus NSAID induced enteritis as well as prior to this recent CTA abdomen and pelvis with pericholecystic fluid suggestive of acute cholecystitis associated with small calcified gallstones with a stable 4.7 cm saccular aneurysm of the infrarenal abdominal aorta with no evidence of any ischemic process with 03/05/2024 abdominal ultrasound with evidence of cholelithiasis with mild gallbladder wall thickening concerning for acute cholecystitis now representing to the [facility] ED on 03/07/2024 as patient during the previous visit despite recommendation for admission per surgeon had left AMA now returning with again ongoing epigastric discomfort and nausea which remains intermittent and has been more frequent over the last week. Patient in the ED reporting pain 1/10 in severity currently following ED interventions and denies any nausea. He notes that these episodes of pain always occur in the early am, often awakening him in his sleep. He ate a sandwich for dinner at ~ 8 pm but again does not seem to worsen after oral intake even by 1-2 hours. He notes the pain is accommodation of dull aching and sharp stabbing. Current workup included T97.7, heart rate 70, BP 2 /89, respiratory rate 18, 100% room air, CBC with WBC 11.9, hemoglobin 12.9, MCV 92.8, platelet 317 with increased immature granulocytes, CMP with chloride 111, BUN/creatinine 16/1.35, GFR 56, glucose 111, total bilirubin 0.30, AST/ALT 13/17, alk phos 120, lipase 54, lactic acid 2.0. In the ED patient administered 1 L normal saline, Dilaudid 1 mg IV x 1, morphine 4 mg IV x 1, Zofran 4 mg IV x 1 as well as IV Zosyn 3.375 g IV x 1. Hospital Course: 1. Acute cholecystitis status post cholecystectomy on 1009 24?68-year-old male presented to the hospital with right upper quadrant abdominal pain he had initially presented to the hospital but had left AMA and then had to return because of continued abdominal pain. He was initiated on Zosyn and his Plavix was held in anticipation of surgery. Surgery was successful yesterday and he was able to tolerate a diet postoperatively as well as today. I discussed with him the plan for discharge today he expressed understanding of the risks and benefits to going home and would like to go home today. He will have a 10 pound lifting restriction and will follow-up with general surgery as an outpatient. He is not to drive while taking narcotics for pain. He will also restart Plavix tomorrow. 2. Coronary artery disease status post CABG and stents, essential hypertension, hyperlipidemia, arthritis, GERD are all chronic medical conditions which complicate his care. His home medications were continued where appropriate Physical Exam Narrative General: Alert, Oriented x3, Cooperative, No apparent distress HEENT: Atraumatic, PERRLA, EOMI, Normocephalic Oral: Moist Mucosa Neck: Supple, No JVD Lungs: Diminished, Normal air movement, No rhonchi, No wheeze, No rales Cardiovascular: Regular rate, Regular Rhythm, Normal S1, Normal S2, No murmurs Abdomen: Soft, Non Tender, Non-Distended, No Hepato-splenomegaly Extremities: No edema, Capillary Refill Less than 3 Seconds Skin: No rashes, No breakdown, incisions and dressing CDI Musculoskeletal: No Tenderness to Palpation of Joints or Extremities Neurological: No focal neurological deficits, Motor Exam 5/5 strength throughout, Sensory exam intact to light touch and pain Psych/Mental Status: Normal Affect, Appropriate Weight / BMI Weight Weight: 191 lb 12.835 oz Body Mass Index (BMI) 27.4 ABG / Lab / Microbiology Data 03/11/24 05:13 03/11/24 05:13 Laboratory: Laboratory Results - last 24 hr 03/11/24 05:13: WBC 12.1 H, RBC 4.20 L, Hgb 12.1 L, Hct 38.5 L, MCV 91.7, MCH 28.8, MCHC 31.4 L, RDW Std Deviation 48.7 H, RDW Coeff of Sierra 14.4, Plt Count 285, MPV 9.8, Immature Gran % (Auto) 0.600, Neut % (Auto) 80.8 H, Lymph % (Auto) 12.0 L, [place] % (Auto) 6.5, Eos % (Auto) 0.0, Baso % (Auto) 0.1, Absolute Neuts (auto) 9.8 H, Absolute Lymphs (auto) 1.45, Nucleated RBC % 0, Sodium 138, Potassium 4.3, Chloride 110 H, Carbon Dioxide 24.0, Anion Gap 4 L, BUN 12, Creatinine 1.41 H, Estim Creat Clear Calc 51.77, Est GFR (MDRD) Af Amer 64, Est GFR (MDRD) Non-Af 53 L, BUN/Creatinine Ratio 8.5 L, Glucose 173 H, Calcium 8.7 D/C Instructions Discharge Diet: Low fat / Low cholesterol Call your doctor if your incision/area has: Continuous Slow Oozing, Increased Redness and Foul Smelling Discharge Call your doctor if you observe: Fever of 101 or Higher, Shortness of breath, Dizziness, Fainting spells, Swelling in the ankles, Chest pain and Increased palpitations (irregular heartbeat) Meaningful Use Info Meaningful Use Meaningful Use Diagnoses (Choose all that apply): None applicable Ischemic Stroke Statin Dosing Therapy Reference: STATIN DOSE THERAPY REFERENCE: * Patients > 75 years receive moderate or high dose statin therapy. * Patients 75 years or YOUNGER should receive HIGH intensity statin dose unless contraindicated. You will be required to document reason for non-treatment if statin daily dose does not meet guidelines. HIGH DOSE STATIN THERAPY DAILY Atorvastatin > than or = to 40 mg Rosuvastatin > than or = to 20 mg Amlodipine + Atorvastatin > than or = to 2.5/40 mg Ezetimibe + Simvastatin 10/80 mg Simvastatin 80mg Discharge Plan Admission Admit Date/Time: 03/07/24 04:08 Attending Provider: Tommy Washington Primary Care Provider: Annika Villasenor Consulting Providers: Michelle Arteaga; Jarred Waddell; Aruna Tovar Discharge Orders/Prescriptions Prescriptions: New oxycodone 5 mg Tablet 5 mg PO Q4H PRN PRN (Reason: Pain Score 4-10) 3 Days Qty: 10 0RF Continued clopidogrel [Plavix] 75 mg tablet 75 mg PO QDAY atorvastatin 80 mg tablet 80 mg PO QHS nitroglycerin 0.4 mg tablet, sublingual 0.4 mg SUBLINGUAL Q5-15M PRN (Reason: Pain, Mild) Rx Instructions: until response; do not exceed 3 doses per episode lisinopril 5 mg tablet 5 mg PO QHS aspirin 81 MG tablet 81 mg PO DAILY@0800 pantoprazole 40 mg tablet,delayed release (DR/EC) 40 mg PO DAILY hydroxychloroquine 200 mg tablet 200 mg PO BID omeprazole 40 mg capsule,delayed release(DR/EC) 40 mg PO DAILY Qty: 30 0RF prednisone 10 mg tablet 10 mg PO DAILY metoprolol tartrate 25 mg tablet 25 mg PO BID Referrals / Follow Up: Jarred Waddell MD [Med Staff - Active Staff] - 03/24/24 1:00 pm Annika Villasenor MD [Primary Care Provider] - Within 1 Week Disposition Disposition (needs filled in before D/C Order can be placed): Home, Self Care Charges/Coding Visit Charges Inpatient E&M: 30329 Disch Hosp >30min
--- OUTSIDE RECORDS SUMMARY | 2024-11-16 10:39 | XMS RPT_ITS | CCD ---
Author Organization [facility] CliniSyma Care Team Providers Care Bolting Machine Operator Name Role Phone DENNING, OMER Unavailable Unavailable PHYSICIAN, NONE Unavailable Unavailable DENNING, OMER Unavailable Unavailable PHYSICIAN, NONE Unavailable Unavailable VIRGINIA LAMBERT Unavailable Unavailable PHYSICIAN, NONE Unavailable Unavailable VIRGINIA LAMBERT Unavailable Unavailable DENNING, OMER Unavailable Unavailable DEZ SNELL Unavailable Unavailable JESSICA, DR ARIANNE Dotson Attending Unavaila ble JESSICA, DR ARIANNE Dotson Primary Care Unavaila ble JESSICA, DR ARIANNE Dotson Admitting Unavaila ble JESSICA, DR ARIANNE Dotson Attending Unavaila ble JESSICA, DR ARIANNE Dotson Primary Care Unavaila ble JESSICA, DR ARIANNE Dotson Admitting Unavaila ble Annika Villasenor Primary Care Provider Annika Villasenor MD Primary Care Provider Dr. Annika Villasenor Primary Care Provider Dr. Zoraida Cantu Emergency Provider Dr. Fidel Enamorado Attending Provider Dr. Mary Fernandez Admit Provider Dr. Mary Fernandez Other Provider Dr. Scotty Mcdaniel Attending Provider Dr. Scotty Mcdaniel Other Provider Dr. Scotty Mcdaniel Referring Provider Dr. Annika Villasenor Referring Provider Friend, Dr. Jean Baptiste Attending Provider [phone] Dr. Annika Villasenor Primary Care Provider Dr. Annika Villasenor Referring Provider Friend, Dr. Jean Baptiste Attending Provider REGAN Loyd Attending Provider Jacklyn STEELE [facility] Primary Care Provider BRENDA MARIN Attending Unavailable [facility] Primary Care Unavailable [facility] Primary Care Unavailable Vellanki, Layla Attending Unavailable Vellanki, Layla Referring Unavailable Nomi Garcia Attending Unavailable [facility] Primary Care Unavailable Nomi Garcia Attending Unavailable [facility] Primary Care Unavailable [facility] Primary Care Unavailable Clovis Robles Attending Unavailable [facility] Primary Care Unavailable Clovis Robles Attending Unavailable [facility] Primary Care Unavailable Aruna Tovar L Admitting Unavailable Nagajothi, [place]aprade[place] Consulting UnavailTommy Humphreys Attending Unavailable Jarred Waddell Consulting Unavailable Aruna Tovar L Consulting Unavailable Tommy Washington Consulting Unavailable Jarred Waddell Attending Unavailable Tommy Washington Referring Unavailable [facility] Primary Care Unavailable Vellanki, Layla Attending Unavailable Vellanki, Layla Referring Unavailable [facility] [place] Referring Unavailable [facility] Attending Unavailable [facility] Primary Care Unavailable [facility] Primary Care Unavailable Kiran Guy Attending Unavailabl e [facility], [place] Primary Care Unavailable WhiteAruna L Admitting Unavailable Nagajothi, [place]ap[place] Consulting UnavailTommy Humphreys F Attending Unavailable Jarred Waddell Consulting Unavailable Aruna Tovar L Consulting Unavailable [facility] Primary Care Unavailable Mihir Zavaleta Attending Unavailable [facility] Referring Unavailable [facility] Primary Care Unavailable Leela Regan Attending Unavailable WhiteAruna L Attending Unavailable [facility] Primary Care Unavailable Aruna Tovar L Referring Unavailable Clovis Robles Attending Unavailable Annika Villasenor Primary Care Unavailable Andrew OROURKE, Dea Attending Unavailable Allergies Allergy Classification Reported Allergen(s) Allergy Type Date of Onset Reaction(s) Facility (6 sources) Sulfonamides (Antibiotic); Translations: [SULFA (SULFONAMIDE ANTIBIOTICS)] Drug Allergy 8 Intolerance [facility] (6 sources) Sulfonamides (Antibiotic) Allergy to substance 2 Unknown, Other [facility] (1 source) Sulfonamides (Antibiotic) Drug allergy (disorder) 4 [facility] Repository Medications Current Medications Medication Drug Class(es) Dates Sig (Normalized) Sig (Original) acetaminophen 325 mg / HYDROcodone bitartrate 5 mg oral tablet (7 sources) Opioid Agonist Start: 01-18-2022 take 1 tablet by mouth every eight hours Hydrocodone-Acetam inophen Active 1 TABLET PO Q8H 9 3 January 18, 2022 aspirin 81 mg delayed release oral tablet (13 sources) Platelet Aggregation Inhibitor, Nonsteroidal Anti-inflammatory Drug Start: 01-30-2019 take 81 mg by mouth once daily Aspirin Active 81 MG PO DAILY@0800 January 29, 2019 11:00pm Comment on above: Take 81 mg by mouth once daily. atorvastatin 80 mg oral tablet (13 sources) HMG-CoA Reductase Inhibitor Start: 02-16-2019 take 1 tablet by mouth once daily atorvastatin (LIPITOR) 80 mg tablet TAKE 1 TABLET BY MOUTH EVERY DAY 90 tablet 3 05/21/2021 Active Comment on above: TAKE 1 TABLET BY HALIMA TH EVERY DAY Blood Pressure Test Kit-Medium kit (5 sources) Start: 07-18-2019 Blood Pressure Test Kit-Medium kit 1 Device twice daily. 1 Kit 1 07/18/2019 Active Comment on above: 1 Device twice daily . clopidogrel 75 mg oral tablet (13 sources) P2Y12 Platelet Inhibitor Start: 07-24-2017 take 2 tablets by mouth once daily Clopidogrel (Plavix) 75 mg tablet Active 150 MG PO daily July 24, 2017 12:00am take 1 tablet by mouth once crista y clopidogrel (PLAVIX) 75 mg tablet Take 75 mg by mouth once daily. 0 Active Comment on above: Take 75 mg by mouth once daily. dicyclomine hydrochloride 20 mg oral tablet (5 sources) Anticholinergic Start: 023 take 20 mg by mouth three times daily Dicyclomine Active 20 MG PO THREE TIMES A DAY August 13, 2022 4:02pm lisinopril 5 mg oral tablet (13 sources) Angiotensin Converting Enzyme Inhibitor Start: 020 take 1 tablet by mouth once daily lisinopril (ZESTRIL, PRINIVIL) 5 mg tablet Indications: Ischemic cardiomyopathy , Coronary angioplasty status , Stenosis of coronary artery stent, subsequent encounter TAKE 1 TABLET BY MOUTH EVERY DAY 90 tablet 3 05/16/2021 Active Comment on above: TAKE 1 TABLET BY HALIMA TH EVERY DAY metoprolol tartrate 25 mg oral tablet (20 sources) beta-Adrenergic Kaycee Start: 021 take 1 tablet by mouth twice daily metoprolol tartrate, short acting, (LOPRESSOR) 25 mg tablet TAKE 1 TABLET BY MOUTH TWICE DAILY 270 tablet 2 01/23/2021 Active Start: 02-16-2019 End: 02-25-2019 take 25 mg by mouth twice daily Metoprolol Tartrate Ac tive 25 MG PO TWICE A DAY 180 February 25, 2019 9:20am Comment on above: TAKE 1 TABLET BY HALIMA TH TWICE DAILY nitroglycerin 0.4 mg sublingual tablet (13 sources) Nitrate Vasodilator Start: 06-14-19 20 nitroglycerin sublingual (NITROQUICK) 0.4 mg SL tablet Dissolve 1 tablet under the tongue every 5 minutes as needed. 1 Bottle of 25 6 06/14/2019 Active Comment on above: Dissolve 1 tablet un dakota the tongue every 5 minutes as needed. ondansetron 4 mg disintegrating oral tablet (7 sources) Serotonin-3 Receptor Antagonist Start: 01-19-20 22 take 4 mg by mouth every eight hours Ondansetron Active 4 MG PO Q8H January 17, 2022 11:00pm pantoprazole 40 mg delayed release oral tablet (20 sources) Proton Pump Inhibitor Start: 03-31-20 21 take 1 tablet by mouth once daily pantoprazole DR (PROTONIX) 40 mg tablet TAKE 1 TABLET BY MOUTH EVERY DAY 90 tablet 3 07/18/2021 Active Start: 02-16-2019 End: 02-25-2019 take 40 mg by mouth once daily Pantoprazole Discontinu ed 40 MG PO DAILY February 15, 2019 11:00pm February 25, 2019 9:20am Comment on above: TAKE 1 TABLET BY HALIMA TH EVERY DAY perflutren lipid microspheres 1.3 mL in NaCl (PF) 0.9% 10 mL injection (DEFINITY) (4 sources) Start: 06-09-2022 End: 09-08-2023 perflutren lipid microspheres 1.3 mL in NaCl (PF) 0.9% 10 mL injection (DEFINITY) Start: 03-07-2021 End: 06-06-2022 perflutren lipid microsphere s 1.3 mL in NaCl (PF) 0.9% 10 mL injection (DEFINITY) 125 ml sodium chloride 9 mg/ ml prefilled syringe (4 sources) Start: 06-09-2022 End: 09-08-2023 sodium chloride 0.9 % (flush ) 10 mL (BD POSIFLUSH) Start: 03-07-2021 End: 06-06-2022 sodium chloride 0.9 % (flush ) 10 mL (BD POSIFLUSH) Completed/Discontinued Medications Medication Drug Class(es) Dates Sig (Normalized) Sig (Original) naproxen sodium 220 mg oral tablet (8 sources) Nonsteroidal Anti-inflammatory Drug Start: 01-30-2019 End: 02-16-2019 take 440 mg by mouth once daily Naproxen Sodium Discontinued 440 MG PO DAILY January 29, 2019 11:00pm February 16, 2019 1:44pm Problems Active Problems Problem Classification Problem Date Documented Da te Episodic/Chronic Aortic; peripheral; and visceral artery aneurysms (5 sources) Abdominal aortic aneurysm; Translations: [Abdominal aortic aneurysm (AAA) 3.0 cm to 5.5 cm in diameter in male] 04-22-2023 Chronic Congestive heart failure; nonhypertensive (5 sources) Chronic combined systolic and diastolic heart failure; Translations: [Chronic combined systolic (congestive) and diastolic (congestive) heart failure] Onset: 3 12-08-2022 Chronic Coronary atherosclerosis and other heart disease (8 sources) Coronary arteriosclerosis; Translations: [Atherosclerotic heart disease of [place] coronary artery without angina pectoris] 08-08-2019 Chronic Disorders of lipid metabolism (1 source) Hyperlipidemia, unspecified; Translations: [Hyperlipidemia, unspecified] Onset: 4 Chronic Essential hypertension (8 sources) Hypertensive disorder; Translations: [Essential (primary) hypertension] Onset: 4 08-13-2022 Chronic Fluid and electrolyte disorders (2 sources) Lactic acidosis; Translations: [Lactic acidosis] 04-22-2023 Episodic Gastrointestinal hemorrhage (11 sources) Lower gastrointestinal hemorrhage; Translations: [Gastrointestinal hemorrhage, unspecified] 04-11-2021 Episodic Other and unspecified benign neoplasm (8 sources) History of polyp of colon; Translations: [Personal history of colonic polyps] 04-10-2021 Episodic Other and unspecified benign neoplasm (2 sources) Personal history of colonic polyps; Translations: [Personal history of colonic polyps] 10-01-2022 Episodic Other circulatory disease (1 source) History of aortofemoral bypass surgery; Translations: [Presence of other vascular implants and grafts] 05-27-2023 Chronic Other circulatory disease (1 source) Presence of other vascular implants and grafts; Translations: [Personal history of surgery to heart and great vessels, presenting hazards to health] 05-27-2023 Chronic Other circulatory disease (8 sources) H/O: aortic aneurysm; Translations: [Personal history of other diseases of the circulatory system] 01-08-2022 Episodic Other circulatory disease (8 sources) H/O: heart disorder; Translations: [Personal history of other diseases of the circulatory system] 01-08-2022 Episodic Other diseases of kidney and ureters (2 sources) Renal insufficiency; Translations: [Disorder of kidney and ureter, unspecified] 04-22-2023 Episodic Other gastrointestinal disorders (8 sources) H/O: gallstones; Translations: [Personal history of other diseases of the digestive system] 01-08-2022 Episodic Peripheral and visceral atherosclerosis (19 sources) Atherosclerosis of artery of lower limb; Translations: [Atherosclerosis of [place] arteries of extremities with intermittent claudication, right leg] Onset: 3 Chronic Pneumonia (except that caused by tuberculosis or sexually transmitted disease) (9 sources) Right middle zone pneumonia; Translations: [Pneumonia, unspecified organism] Onset: 5 07-05-2019 Episodic Residual codes; unclassified (8 sources) Tobacco user; Translations: [Tobacco use] 07-04-2019 Episodic Rheumatoid arthritis and related disease (1 source) Rheumatoid arthritis with rheumatoid factor of multiple sites without organ or systems involvement; Translations: [Rheumatoid arthritis with rheumatoid factor of multiple sites without organ or systems involvement] Onset: 4 Chronic Substance-related disorders (6 sources) Nicotine dependence; Translations: [Nicotine dependence, unspecified, uncomplicated] Onset: 01-31-2019 Chronic Past or Other Problems Problem Classification Problem Date Documented Da te Episodic/Chronic Abdominal pain (20 sources) Abdominal pain; Translations: [Unspecified abdominal pain] Onset: 03-24-2024 08-13-2022 Episodic Acute myocardial infarction (1 source) Myocardial infarction; Translations: [Non-ST elevation (NSTEMI) myocardial infarction] Onset: 01-30-2019 Resolved: 02-02-2019 02-02-2019 Chronic Biliary tract disease (17 sources) Gallstone; Translations: [Calculus of gallbladder without cholecystitis without obstruction] Onset: 03-24-2024 01-26-2022 Episodic Coronary atherosclerosis and other heart disease (16 sources) Patient post percutaneous transluminal coronary angioplasty; Translations: [Coronary angioplasty status] Onset: 06-09-2022 Episodic Other lower respiratory disease (5 sources) Dyspnea; Translations: [Shortness of breath] Onset: 06-09-2022 Episodic Other screening for suspected conditions (not mental disorders or infectious disease) (7 sources) Patient encounter status; Translations: [Encounter for screening for cardiovascular disorders] Onset: 06-09-2022 Episodic Results Test Name Value Interpretation Reference Range Facility Chest PA and Lateralon 07-12 Chest PA and Lateral [facility] [address] [place] [id number] Chest PA and Lateral MR#: [id number] Acct: [id number] Name: CHEY WALKER Rep #: [id number] : 1955 M 69 From: Ag alvares MD PCP: Dr. Annika Villasenor MD Status: REG CLI Study: Chest PA and Lateral Date of Exam: 07/12/24 Exam# [id number] Ordering Dr: Annika Villasenor MD PROCEDURE: CHEST PA AND LATERAL REASON FOR EXAM: Cough and shortness of breath. TECHNIQUE: Frontal view of the chest. COMPARISON: None. FINDINGS: Cardiac stents are vascular calcifications noted. Status post median sternotomy. Retained lead. Increased interstitial markings are noted with right middle infiltrate. No pleural effusion or pneumothorax noted. Chronic right clavicular fracture deformity. RAD/Chest PA and Lateral IMPRESSION: Increased interstitial markings are noted with right middle infiltrate. Follow to resolution to exclude an underlying lesion. Reading Location: [id number] CC: Dr. Annika Villasenor MD Senior Oracle Database Administrator: Signed Normal [facility] Surgery Visit Reporton 03-24 Surgery Visit Report [facility] [address] [place] [address] OFFICE VISIT Date of Service: 03/24/24 MR#: [id number] Acct: [id number] Name: CHEY WALKER Rep #: [id number] : 1955 Provider: EDGAR duque Age/Sex: 68/M Location: [facility] Status: Signed Intake Vital Signs 03/10/24 13:03 03/11/24 11:31 Height 5 ft 10 in 5 ft 10 in Intake Visit Reasons: LAP NEHA DOS 03/10 Chief Complaint: lap neha DOS 03/10 Accompanied by: Daughter Is patient in pain?: No Allergies Sulfa (Sulfonamide Antibiotics) Allergy (Verified 03/24/24 12:37) Other Medications ???Medication ???Instructions ???Recorded ???Confirmed ???Type clopidogrel 75 mg tablet (Plavix) 75 mg PO QDAY 07/24/17 03/24/24 History aspirin 81 mg tablet,delayed 81 mg PO DAILY@0800 01/30/19 03/24/24 History release atorvastatin 80 mg tablet 80 mg PO QHS 02/16/19 03/24/24 History lisinopril 5 mg tablet 5 mg PO QHS blood pressure 08/08/19 03/24/24 History nitroglycerin 0.4 mg sublingual 0.4 mg sublingual Q5-15M PRN Pain, 08/08/19 03/24/24 History tablet Mild pantoprazole 40 mg tablet,delayed 40 mg PO DAILY GERD 03/31/21 03/24/24 History release omeprazole 40 mg capsule,delayed 40 mg PO DAILY #30 caps 12/15/23 03/24/24 Rx release hydroxychloroquine 200 mg tablet 200 mg PO BID 02/22/24 03/24/24 History prednisone 10 mg tablet 10 mg PO DAILY 03/05/24 03/24/24 History metoprolol tartrate 25 mg tablet 25 mg PO BID Heart 03/07/24 03/24/24 History Have you fallen in the past year?: No Subjective Details: Patient is a 68 y/o M I am following s/p laparoscopic cholecystectomy by Dr. Waddell on 03/10/24. An attempt was made to perform an IOC at the time of the procedure, however there was noted to be a stone in the cystic duct, so no grams were completed. He denies any nausea, vomiting, fever. He notes appetite has returned to normal and bowel habits are normal. He denies any abdominal pain/discomfort noted. Patient notes his abdominal symptoms that her came into the ED with are completely resolved. Pathology demonstrated chronic cholecystitis. No calculi identified. Objective Details: Abdomen- incisions c/d/i. No erythema or infection noted. All steri-strips were removed. Coding Level of Care Code Global Post Op Diagnoses S/P cholecystectomy Z90.49 [facility] Medical History (Updated 03/13/24 @ 00:01 by Cong Garcia) Rheumatoid arthritis Hypertension Personal history of colonic polyps Ischemic colitis History of pneumonia Presence of stent in coronary artery ( 06/08/19) Old myocardial infarction Atherosclerotic heart disease of [place] coronary artery without angina pectoris Hyperlipidemia Cardiomyopathy PAD (peripheral artery disease) CAD in [place] artery NSTEMI (non-ST elevated myocardial infarction) Essential hypertension Heart disease Arthritis HTN (hypertension) Surgical History (Updated 03/24/24 @ 12:47 by Quita Iverson LPN) S/P cholecystectomy Presence of coronary angioplasty implant and graft ( 06/08/19) History of coronary artery bypass surgery ( 2000) Abdominal aortic aneurysm without rupture S/P PTCA (percutaneous transluminal coronary angioplasty) History of open heart surgery History of cmiui-bmijx-emracsc bypass Family History Father CAD (coronary artery disease) Mother Cancer CAD (coronary artery disease) Social History household members: none Smoking Status: Current some day smoker tobacco type: cigarettes alcohol intake: current alcohol intake frequency: holidays/special occasions only substance use type: does not use Assessment and Plan (No Qualifiers) Assessment and Plan (1) S/P cholecystectomy: Status: Acute Plan: Recommend no strenuous activity for 2 additional weeks Follow-up as needed 03/24/24 1304 Date Leela Knighter Signature: Date (if applicable) CC: Dr. Annika Villasenor MD Normal [facility] Basic Metabolic Profile (BMP )on 03-11-2024 BUN/CRE 8.5 RATIO Low -20 [facility] Comment on above: Performed By: #### L 500.2500, L100.0100 #### [facility] [address] [place], [address] CA,Total 8.7 mg/dL Normal 8.5-10.1 [facility] Comment on above: Performed By: #### L 500.2500, L100.0100 #### [facility] [address] [place], [address] Chloride [Moles/Vol] 110 mmol/L High 98-107 [facility] Comment on above: Performed By: #### L 500.2500, L100.0100 #### [facility] [address] [place], [address] CO2 [Moles/Vol] 24.0 mmol/L Normal 21.0-32.0 [facility] Comment on above: Performed By: #### L 500.2500, L100.0100 #### [facility] [address] [place], [address] Creatinine [Mass/Vol] 1.41 mg/dL High 0.70-1.30 [facility] Comment on above: Result Comment: The validity of the calculated GFR GFRAA in patients over 70 years has not been determined. Clinical correlation is essential. Performed By: #### L 500.2500, L100.0100 #### [facility] [address] [place], [address] ECRCL 51.77 ml/min Normal [facility] Comment on above: Performed By: #### L 500.2500, L100.0100 #### [facility] [address] [place], [address] EST GFR - AA 64 mL/min Normal >60 [facility] Comment on above: Result Comment: Afri can Nepalese GFR Calc Performed By: #### L 500.2500, L100.0100 #### [facility] [address] [place], [address] GAP 4 Low 5-15 [facility] Comment on above: Performed By: #### L 500.2500, L100.0100 #### [facility] [address] [place], [address] GFR/1.73 sq M.predicted among non-blacks MDRD (S/P/Bld) [Vol rate/Area] 53 mL/min/{1.73_m2} Low >60 [facility] Comment on above: Result Comment: Non- GFR Calc Performed By: #### L 500.2500, L100.0100 #### [facility] [address] [place], [address] Glucose [Mass/Vol] 173 mg/dL High 74-106 [facility] Comment on above: Result Comment: Fast ing Glucose result greater than or equal to 126 mg/dL suggests DIABETES MELLITUS per A.D.A. criteria. Performed By: #### L 500.2500, L100.0100 #### [facility] [address] [place], [address] Potassium [Moles/Vol] 4.3 mmol/L Normal 3.5-5.1 [facility] Comment on above: Performed By: #### L 500.2500, L100.0100 #### [facility] [address] [place], [address] Sodium [Moles/Vol] 138 mmol/L Normal 136-145 [facility] Comment on above: Performed By: #### L 500.2500, L100.0100 #### [facility] [address] [place], [address] Urea nitrogen [Mass/Vol] 12 mg/dL Normal 7-18 [facility] Comment on above: Performed By: #### L 500.2500, L100.0100 #### [facility] [address] [place], [address] CBC W/Diff, Automatedon 10- Absolute Lymph 1.45 X10 3/uL Normal 0.83-4.51 [facility] Comment on above: Performed By: #### L 500.2500, L100.0100 #### [facility] [address] [place], [address] Absolute Neut 9.8 X10 3/uL High 2.0-7.7 [facility] Comment on above: Performed By: #### L 500.2500, L100.0100 #### [facility] [address] [place], [address] Basophils/100 WBC (Bld) 0.1 % Normal 0-1 [facility] Comment on above: Performed By: #### L 500.2500, L100.0100 #### [facility] [address] [place], [address] Eosinophils/100 WBC (Bld) 0.0 % Normal 0-5 [facility] Comment on above: Performed By: #### L 500.2500, L100.0100 #### [facility] [address] [place], [address] Erythrocyte distribution width (RBC) [Ratio] 14.4 % Normal 11.6-14.6 [facility] Comment on above: Performed By: #### L 500.2500, L100.0100 #### [facility] [address] [place], [address] Hematocrit (Bld) [Volume fraction] 38.5 % Low 40-54 [facility] Comment on above: Performed By: #### L 500.2500, L100.0100 #### [facility] [address] [place], [address] Hemoglobin (Bld) [Mass/Vol] 12.1 g/dL Low 13.0-16.5 [facility] Comment on above: Performed By: #### L 500.2500, L100.0100 #### [facility] [address] [place], [address] IG% 0.600 Normal 0.0-0.9 [facility] Comment on above: Result Comment: IG% - Immature Granulocytes (promyelocytes, myelocytes and metamyelocytes) > 1% indicates that a LEFT SHIFT is Present. Performed By: #### L 500.2500, L100.0100 #### [facility] [address] [place], [address] Lymphocytes/100 WBC (Bld) 12.0 % Low 19-41 [facility] Comment on above: Performed By: #### L 500.2500, L100.0100 #### [facility] [address] [place], [address] MCH (RBC) [Entitic mass] 28.8 pg Normal 27.0-32.0 [facility] Comment on above: Performed By: #### L 500.2500, L100.0100 #### [facility] [address] [place], [address] MCHC (RBC) [Mass/Vol] 31.4 g/dL Low 32-36 [facility] Comment on above: Performed By: #### L 500.2500, L100.0100 #### [facility] [address] [place], [address] MCV (RBC) [Entitic vol] 91.7 fL Normal 80-94 [facility] Comment on above: Performed By: #### L 500.2500, L100.0100 #### [facility] [address] [place], [address] Monocytes/100 WBC (Bld) 6.5 % Normal 0-10 [facility] Comment on above: Performed By: #### L 500.2500, L100.0100 #### [facility] [address] [place], [address] Neutrophils/100 WBC (Bld) 80.8 % High 47-70 [facility] Comment on above: Performed By: #### L 500.2500, L100.0100 #### [facility] [address] [place], [address] Nucleated RBC (Bld) [#/Vol] 0 10*3/uL Normal 0-5 [facility] Comment on above: Performed By: #### L 500.2500, L100.0100 #### [facility] [address] [place], [address] Platelet mean volume (Bld) [Entitic vol] 9.8 fL Normal 6.2-12.0 [facility] Comment on above: Performed By: #### L 500.2500, L100.0100 #### [facility] [address] [place], [address] Platelets (Bld) [#/Vol] 285 10*3/uL Normal 150-450 [facility] Comment on above: Performed By: #### L 500.2500, L100.0100 #### [facility] [address] [place], [address] RBC (Bld) [#/Vol] 4.20 10*6/uL Low 4.6-6.2 [facility] Comment on above: Performed By: #### L 500.2500, L100.0100 #### [facility] [address] [place], [address] RDW SD 48.7 fl High 35.1-43.9 [facility] Comment on above: Performed By: #### L 500.2500, L100.0100 #### [facility] [address] [place], [address] WBC (Bld) [#/Vol] 12.1 10*3/uL High 4.4-11.0 [facility] Comment on above: Performed By: #### L 500.2500, L100.0100 #### [facility] [address] [place], [address] Discharge Instructionon 03-01 Discharge Instruction [facility] Medical Records Department [address] [place] [address] Instructions for Home/Discharge Instructions 03/11/24 0942 MR#: [id number] Acct: [id number] Name: CHEY WALKER Rep #: [id number] : 1955 68 From: Tommy Washington MD PCP: Dr. Annika Villasenor MD Status:ADM IN Discharge Instructions Diet Discharge Diet: Low fat / Low cholesterol Activity Discharge Activity: May Not Drive (While on narcotics) Lifting Restrictions: 10 pounds for 4 weeks Dressing / Incision Call your doctor if your incision/area has: Continuous Slow Oozing, Increased Redness and Foul Smelling Discharge Call your doctor if you observe: Fever of 101 or Higher, Shortness of breath, Dizziness, Fainting spells, Swelling in the ankles, Chest pain and Increased palpitations (irregular heartbeat) Follow Up Care Test Results: Test results from this visit will be discussed in further detail at your follow-up appointment, if applicable. Discharge Plan Admission Admit Date/Time: 03/07/24 04:08 Attending Provider: Tommy Washington Primary Care Provider: Annika Villasenor Consulting Providers: Michelle Arteaga; Jarred Waddell; Aruna Tovar Discharge Orders/Prescriptions Prescriptions: New oxycodone 5 mg Tablet 5 mg PO Q4H PRN PRN (Reason: Pain Score 4-10) 3 Days Qty: 10 0RF Continued clopidogrel [Plavix] 75 mg tablet 75 mg PO QDAY atorvastatin 80 mg tablet 80 mg PO QHS nitroglycerin 0.4 mg tablet, sublingual 0.4 mg SUBLINGUAL Q5-15M PRN (Reason: Pain, Mild) Rx Instructions: until response; do not exceed 3 doses per episode lisinopril 5 mg tablet 5 mg PO QHS aspirin 81 MG tablet 81 mg PO DAILY@0800 pantoprazole 40 mg tablet,delayed release (DR/EC) 40 mg PO DAILY hydroxychloroquine 200 mg tablet 200 mg PO BID omeprazole 40 mg capsule,delayed release(DR/EC) 40 mg PO DAILY Qty: 30 0RF prednisone 10 mg tablet 10 mg PO DAILY metoprolol tartrate 25 mg tablet 25 mg PO BID Referrals / Follow Up: Jarred Waddell MD [Med Staff - Active Staff] - Within 1 Month Annika Villasenor MD [Primary Care Provider] - Within 1 Week Disposition Disposition (needs filled in before D/C Order can be placed): Home, Self Care 03/11/24 0953 Tommy Washington MD CC: Dr. Jarred Waddell MD; Dr. Aruna Tovar MD; Dr. Annika Villasenor MD; Dr. Michelle Arteaga MD Signed Normal [facility] 12 Lead EKGon 03-10-2024 12 Lead EKG [facility] [address] [place] [address] 12 Lead EKG 03/10/24 1258 MR#: [id number] Acct: [id number] Name: CHEY WALKER Rep #: [id number] : 1955 68 From: Fidel Taylor MD Attending Dr: Dr. Tommy Washington MD Status : DIS IN Ordering Dr: Tho Butler MD Date: 03/10/24 Location: [facility] Sex: M C Admitted: 03/07/24 Test Reason : POSTOP Blood Pressure : / mmHG Vent. Rate : 071 BPM Atrial Rate : 071 BPM P-R Int : 176 ms QRS Dur : 114 ms QT Int : 446 ms P-R-T Axes : 047 026 078 degrees QTc Int : 484 ms Normal sinus rhythm Possible Left atrial enlargement Inferior infarct , age undetermined Abnormal ECG When compared with ECG of 10-MAR-2024 05:25, No significant change was found Confirmed by Fidel Taylor ([id number]), editor greeting card LEELA SUTHERLAND ([id number]) on 03/16/2024 2:03:11 PM Referred By: RL Confirmed By:Fidel Taylor 03/16/24 1403 Date Fidel Taylor MD CC: Dr. Tho Butler MD; Dr. Annika Villasenor MD; Dr. Tommy Washington MD Signed Normal [facility] Basic Metabolic Profile (BMP )on 03-10-2024 BUN/CRE 7.3 RATIO Low 03-20 [facility] Comment on above: Performed By: #### L 500.4050, L501.2450 #### [facility] [address] [place], [address] CA,Total 8.5 mg/dL Normal 8.5-10.1 [facility] Comment on above: Performed By: #### L 500.4050, L501.2450 #### [facility] [address] [place], [address] Chloride [Moles/Vol] 113 mmol/L High 98-107 [facility] Comment on above: Performed By: #### L 500.4050, L501.2450 #### [facility] [address] [place], [address] CO2 [Moles/Vol] 25.0 mmol/L Normal 21.0-32.0 [facility] Comment on above: Performed By: #### L 500.4050, L501.2450 #### [facility] [address] [place], [address] Creatinine [Mass/Vol] 1.37 mg/dL High 0.70-1.30 [facility] Comment on above: Result Comment: The validity of the calculated GFR GFRAA in patients over 70 years has not been determined. Clinical correlation is essential. Performed By: #### L 500.4050, L501.2450 #### [facility] [address] [place], [address] ECRCL 53.28 ml/min Normal [facility] Comment on above: Performed By: #### L 500.4050, L501.2450 #### [facility] [address] [place], [address] EST GFR - AA 66 mL/min Normal >60 [facility] Comment on above: Result Comment: Afri can Nepalese GFR Calc Performed By: #### L 500.4050, L501.2450 #### [facility] [address] [place], [address] GAP 3 Low 5-15 [facility] Comment on above: Performed By: #### L 500.4050, L501.2450 #### [facility] [address] [place], [address] GFR/1.73 sq M.predicted among non-blacks MDRD (S/P/Bld) [Vol rate/Area] 55 mL/min/{1.73_m2} Low >60 [facility] Comment on above: Result Comment: Non- GFR Calc Performed By: #### L 500.4050, L501.2450 #### [facility] [address] [place], [address] Glucose [Mass/Vol] 73 mg/dL Low 74-106 [facility] Comment on above: Performed By: #### L 500.4050, L501.2450 #### [facility] [address] [place], [address] Potassium [Moles/Vol] 4.4 mmol/L Normal 3.5-5.1 [facility] Comment on above: Performed By: #### L 500.4050, L501.2450 #### [facility] [address] [place], [address] Sodium [Moles/Vol] 141 mmol/L Normal 136-145 [facility] Comment on above: Performed By: #### L 500.4050, L501.2450 #### [facility] [address] [place], [address] Urea nitrogen [Mass/Vol] 10 mg/dL Normal 7-18 [facility] Comment on above: Performed By: #### L 500.4050, L501.2450 #### [facility] [address] [place], [address] CBC W/Diff, Automatedon 10-1 0-2024 Absolute Lymph 2.88 X10 3/uL Normal 0.83-4.51 [facility] Comment on above: Performed By: #### L 500.4050, L501.2450 #### [facility] [address] [place], [address] Absolute Neut 4.2 X10 3/uL Normal 2.0-7.7 [facility] Comment on above: Performed By: #### L 500.4050, L501.2450 #### [facility] [address] [place], [address] Basophils/100 WBC (Bld) 0.9 % Normal 0-1 [facility] Comment on above: Performed By: #### L 500.4050, L501.2450 #### [facility] [address] [place], [address] Eosinophils/100 WBC (Bld) 5.0 % Normal 0-5 [facility] Comment on above: Performed By: #### L 500.4050, L501.2450 #### [facility] [address] [place], [address] Erythrocyte distribution width (RBC) [Ratio] 14.6 % Normal 11.6-14.6 [facility] Comment on above: Performed By: #### L 500.4050, L501.2450 #### [facility] [address] [place], [address] Hematocrit (Bld) [Volume fraction] 39.5 % Low 40-54 [facility] Comment on above: Performed By: #### L 500.4050, L501.2450 #### [facility] [address] [place], [address] Hemoglobin (Bld) [Mass/Vol] 12.3 g/dL Low 13.0-16.5 [facility] Comment on above: Performed By: #### L 500.4050, L501.2450 #### [facility] [address] [place], [address] IG% 1.000 High 0.0-0.9 [facility] Comment on above: Result Comment: IG% - Immature Granulocytes (promyelocytes, myelocytes and metamyelocytes) > 1% indicates that a LEFT SHIFT is Present. Performed By: #### L 500.4050, L501.2450 #### [facility] [address] [place], [address] Lymphocytes/100 WBC (Bld) 35.2 % Normal 19-41 [facility] Comment on above: Performed By: #### L 500.4050, L501.2450 #### [facility] [address] [place], [address] MCH (RBC) [Entitic mass] 28.9 pg Normal 27.0-32.0 [facility] Comment on above: Performed By: #### L 500.4050, L501.2450 #### [facility] [address] [place], [address] MCHC (RBC) [Mass/Vol] 31.1 g/dL Low 32-36 [facility] Comment on above: Performed By: #### L 500.4050, L501.2450 #### [facility] [address] [place], [address] MCV (RBC) [Entitic vol] 92.9 fL Normal 80-94 [facility] Comment on above: Performed By: #### L 500.4050, L501.2450 #### [facility] [address] [place], [address] Monocytes/100 WBC (Bld) 6.8 % Normal 0-10 [facility] Comment on above: Performed By: #### L 500.4050, L501.2450 #### [facility] [address] [place], [address] Neutrophils/100 WBC (Bld) 51.1 % Normal 47-70 [facility] Comment on above: Performed By: #### L 500.4050, L501.2450 #### [facility] [address] [place], [address] Nucleated RBC (Bld) [#/Vol] 0 10*3/uL Normal 0-5 [facility] Comment on above: Performed By: #### L 500.4050, L501.2450 #### [facility] [address] [place], [address] Platelet mean volume (Bld) [Entitic vol] 9.6 fL Normal 6.2-12.0 [facility] Comment on above: Performed By: #### L 500.4050, L501.2450 #### [facility] [address] [place], [address] Platelets (Bld) [#/Vol] 275 10*3/uL Normal 150-450 [facility] Comment on above: Performed By: #### L 500.4050, L501.2450 #### [facility] [address] [place], [address] RBC (Bld) [#/Vol] 4.25 10*6/uL Low 4.6-6.2 [facility] Comment on above: Performed By: #### L 500.4050, L501.2450 #### [facility] [address] [place], [address] RDW SD 49.9 fl High 35.1-43.9 [facility] Comment on above: Performed By: #### L 500.4050, L501.2450 #### [facility] [address] [place], [address] WBC (Bld) [#/Vol] 8.2 10*3/uL Normal 4.4-11.0 [facility] Comment on above: Performed By: #### L 500.4050, L501.2450 #### [facility] [address] [place], [address] L501.4020on 03-10-2024 TROPONIN-I HS 14 pg/mL Normal 3.0-78.0 [facility] Comment on above: Order Comment: Y Result Comment: Plea se Note: New Test Units and Gender Specific Reference Ranges. For more information see Policy Stat Procedure [place] High Sensitivity Troponin (TNIH) and attachments. Performed By: #### L 503.6005 #### [facility] [address] [place], [address] MR/POSTOP.ANEon 03-10-2024 MR/POSTOP.ANE [facility] Medical Records Department [address] [place] [address] Anesthesia Postop Eval I 03/10/24 1246 MR#: [id number] Acct: [id number] Name: CHEY WALKER Rep #: [id number] : 1955 68 From: Uzma Almeida CRNA PCP: Dr. Annika Villasenor MD Status:ADM IN Y Race: C Location: [place] [address]-1 Anesthesia: Postop Eval I Current Vital Signs Temperature: 97.2 F Pulse Rate: 76 Blood Pressure: 188/78 Respiratory Rate: 16 Pulse Ox: 100 Oxygen Delivery Method: Simple Mask Oxygen Flow Rate (L/min): 6 Assessment Airway patent: Yes Spontaneous unlabored respirations: Yes Mental status: Awake and Calm nausea: No Vomiting: No Anesthesia Complication: No Fluid Hydration Crystalloid volume administer (ml): 600 Total IV fluid infused: 600 Progress Note Anesthesia document: Postop Eval 1 completed: Yes 03/10/24 124 Date Uzma Almeida CRNA Cosigner Signature: Date CC: Signed Normal [facility] MR/[id number] 03-10-2024 [facility] Medical Records Department [address] [place] [address] Anesthesia Postop Eval II 03/10/24 1248 MR#: [id number] Acct: [id number] Name: CHEY WALKER Rep #: [id number] : 1955 68 From: Scotty Panchal MD PCP: Dr. 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.SKOBY Spontaneous unlabored Yes 03/10/24 12:47 GENERAL ASSEMBLER INSTALLER.SKOBY respirations Mental status Awake,Calm 03/10/24 12:47 GENERAL ASSEMBLER INSTALLER.SKOBY nausea No 03/10/24 12:47 GENERAL ASSEMBLER INSTALLER.SKOBY Vomiting No 03/10/24 12:47 GENERAL ASSEMBLER INSTALLER.SKOBY Anesthesia Postop Eval I: Fluid Summary Crystalloid volume administer 600 03/10/24 12:47 GENERAL ASSEMBLER INSTALLER.SKOBY (ml) Colloids volume administered ( ml) Blood Product volume administered (ml) Total IV fluid infused 600 03/10/24 12:47 GENERAL ASSEMBLER INSTALLER.KHOAOBTim Anesthesia Postop Eval I: Summary Notes Anesthesia Complication No 03/10/24 12:47 GENERAL ASSEMBLER INSTALLER.KHOAOBTim Anesthesia Complication Comment: Post-operative progress note Anesthesia: Postop Eval II Evaluation Mental status: Awake Pain Level: 0 nausea: No Vomiting: No 03/10/24 1248 Date Scotty Panchal MD Cosigner Signature: Date CC: Signed Normal [facility] Operative Reporton 4 Operative Report [facility] Medical Records Department [address] [place] [address] Operative Report 03/10/24 1313 MR#: [id number] Acct: [id number] Name: CHEY WALKER Rep #: [id number] : 1955 68 From: Jarred Waddell MD PCP: Dr. Annika Villasenor MD Status:ADM IN Location: [place] [address] Report of Operation Date of Procedure: 03/10/24 Pre-Operative Diagnosis: Acute cholecystitis Post-Operative Diagnosis: Acute cholecystitis Surgery/Procedure Performed:: Laparoscopic cholecystectomy Specimen's removed: Gallbladder Estimated Blood Loss (mL): 20 Description of Procedure: After obtaining informed consent patient was brought back to the operating room. General anesthesia was induced. The abdomen was prepped and draped in usual sterile fashion. A small midline incision was made superior to the umbilicus and deepened to the level of fascia. The fascia was elevated and incised. Next the peritoneum was elevated and incised in the same fashion. Finger sweep was performed and the Cottrell trocar was placed into the abdomen. The balloon was inflated. The abdomen was inflated to 15 mmHg. Next a camera was introduced into the abdomen and the abdomen was inspected. Next under direct visualization three 5-mm ports were placed one subxiphoid and 2 subcostal. Next the gallbladder was elevated and retracted toward the right shoulder. The peritoneum was stripped from the gallbladder. The infundibulum was located and retracted laterally. Next the triangle of Calot was dissected and the cystic duct and cystic artery were identified. Cholangiograms were unable to be performed as there was a cystic duct stone. Three hemolock clips were placed across the cystic duct below the stone. The cystic duct was then divided leaving 2 clips on the stump. The cystic artery was clipped and divided in the same fashion. The hook cautery was then used to take the gallbladder off of the gallbladder bed. Hemostasis was obtained. Gallbladder fossa was irrigated and no active bleeding or bile leakage was noted. Next the camera was introduced in the subxiphoid port. An Endopouch bag was placed through the umbilical port and the gallbladder was placed into it. The gallbladder was then removed through the umbilical incision. The camera was then reinserted through the umbilical port. Surgicel powder was placed over the gallbladder fossa. The gallbladder fossa was inspected once more and noted to be hemostatic with no leaking bile. The abdomen was suctioned dry. The 5 mm ports were removed under direct visualization. The umbilical port was then removed and the air was removed from the abdomen. Next using an 0 Vicryl suture the umbilical fascia was closed in a [id number] fashion. The umbilical port site was irrigated local anesthetic was administered to all the incisions. All the incisions were closed with interrupted subcuticular 4-0 Monocryl sutures followed by Steri-Strips and dressings. The patient was awoken and taken to PACU in stable condition. Admit VTE Documentation VTE Mechan Device Prophylaxis: SCD's 03/10/24 1316 Cosigner Signature (if applicable): CC: Dr. Jarred Waddell MD; Dr. Aruna Tovar MD; Dr. Annika Villasenor MD; Dr. Michelle Arteaga MD Signed Normal [facility] Surgery Specimen Level IIIon 03-10-2024 Surgery Specimen Level III Patient Age/Sex Location Account Attending Physician CHEY WALKER 68/M MS3 [id number] Dr. Tommy Washington MD Specimen: [id number] Received: 03/10/24387 Status: [facility] Ocampo Num: [id number] Spec Type: JESSICA Nielsen Dr: Dr. Jarred Waddell MD HEADER OPERATION: Laparoscopic, cholecystectomy PRE-OP DIAGNOSIS: Acute cholecystitis TISSUE SUBMITTED: Gallbladder MICROSCOPIC DIAGNOSIS Gallbladder, cholecystectomy: Chronic cholecystitis. Adherent liver with mild chronic inflammation. AM.mr 03/14 MICROSCOPIC DESCRIPTION Slides are reviewed. GROSS DESCRIPTION Received is one container labeled with the patient's name and designated gallbladder. The specimen consists of a gallbladder measuring 7.0 x 4.0 x 2.0 cm. The external surface is smooth and glistening. Focally, it is granular, hemorrhagic and contains cautery artifact. The lumen of the gallbladder contains greenish mucoid bile. No calculi are identified. The mucosa is bile-stained and without any mass lesions. The gallbladder wall averages 0.6cm in thickness and is free of mass lesions. Brick Cleaner sections of the gallbladder and the cystic duct at margin of resection are submitted in one cassette. / AM:mr 03/11/2024 TC:3 CPT: 12479 Patient Age/Sex Location Account Attending Physician CHEY WALKER/Joanne MS3 [id number] Dr. Tommy Washington MD Signed (signature on file) Dr. Cortes Kulkarni DO 03/14/24 1204 Normal [facility] Comment on above: Performed By: #### P SUIII ####[facility] [address] [place], [place], [id number] Basic Metabolic Profile (BMP )on 03-09-2024 BUN/CRE 8.1 RATIO Low 10-20 [facility] Comment on above: Performed By: #### L 503.6005 #### [facility] [address] [place], [place], [id number] CA,Total 8.5 mg/dL Normal 8.5-10.1 [facility] Comment on above: Performed By: #### L 503.6001 #### [facility] [address] [place], [place], [address] Chloride [Moles/Vol] 110 mmol/L High 98-107 [facility] Comment on above: Performed By: #### L 503.6004 #### [facility] [address] [place], [place], [address] CO2 [Moles/Vol] 25.0 mmol/L Normal 21.0-32.0 [facility] Comment on above: Performed By: #### L 503.600 #### [facility] [address] [place], [address] Creatinine [Mass/Vol] 1.35 mg/dL High 0.70-1.30 [facility] Comment on above: Result Comment: The validity of the calculated GFR GFRAA in patients over 70 years has not been determined. Clinical correlation is essential. Performed By: #### L 503.6005 #### [facility] [address] [place], [address] ECRCL 54.07 ml/min Normal [facility] Comment on above: Performed By: #### L 503.6005 #### [facility] [address] [place], [address] EST GFR - AA 68 mL/min Normal >60 [facility] Comment on above: Result Comment: Afri can Nepalese GFR Calc Performed By: #### L 503.6005 #### [facility] [address] [place], [address] GAP 4 Low 5-15 [facility] Comment on above: Performed By: #### L 503.6005 #### [facility] [address] [place], [address] GFR/1.73 sq M.predicted among non-blacks MDRD (S/P/Bld) [Vol rate/Area] 56 mL/min/{1.73_m2} Low >60 [facility] Comment on above: Result Comment: Non- GFR Calc Performed By: #### L 503.6005 #### [facility] [address] [place], [address] Glucose [Mass/Vol] 76 mg/dL Normal 74-106 [facility] Comment on above: Performed By: #### L 503.6005 #### [facility] [address] [place], [address] Potassium [Moles/Vol] 4.4 mmol/L Normal 3.5-5.1 [facility] Comment on above: Performed By: #### L 503.6005 #### [facility] [address] [place], [address] Sodium [Moles/Vol] 139 mmol/L Normal 136-145 [facility] Comment on above: Performed By: #### L 503.6005 #### [facility] [address] [place], [address] Urea nitrogen [Mass/Vol] 11 mg/dL Normal 7-18 [facility] Comment on above: Performed By: #### L 503.6005 #### [facility] [address] [place], [address] CBC W/Diff, Automatedon 10-0 -2023 Absolute Lymph 2.36 X10 3/uL Normal 0.83-4.51 [facility] Comment on above: Performed By: #### L 503.6005 #### [facility] [address] [place], [address] Absolute Neut 4.1 X10 3/uL Normal 2.0-7.7 [facility] Comment on above: Performed By: #### L 503.6005 #### [facility] [address] [place], [address] Basophils/100 WBC (Bld) 1.3 % High 0-1 [facility] Comment on above: Performed By: #### L 503.6005 #### [facility] [address] [place], [address] Eosinophils/100 WBC (Bld) 4.6 % Normal 0-5 [facility] Comment on above: Performed By: #### L 503.6005 #### [facility] [address] [place], [address] Erythrocyte distribution width (RBC) [Ratio] 14.4 % Normal 11.6-14.6 [facility] Comment on above: Performed By: #### L 503.6005 #### [facility] [address] [place], [address] Hematocrit (Bld) [Volume fraction] 38.3 % Low 40-54 [facility] Comment on above: Performed By: #### L 503.6005 #### [facility] [address] [place], [address] Hemoglobin (Bld) [Mass/Vol] 12.0 g/dL Low 13.0-16.5 [facility] Comment on above: Performed By: #### L 503.6005 #### [facility] [address] [place], [address] IG% 1.500 High 0.0-0.9 [facility] Comment on above: Result Comment: IG% - Immature Granulocytes (promyelocytes, myelocytes and metamyelocytes) > 1% indicates that a LEFT SHIFT is Present. Performed By: #### L 503.6005 #### [facility] [address] [place], [address] Lymphocytes/100 WBC (Bld) 31.3 % Normal 19-41 [facility] Comment on above: Performed By: #### L 503.6005 #### [facility] [address] [place], [address] MCH (RBC) [Entitic mass] 28.8 pg Normal 27.0-32.0 [facility] Comment on above: Performed By: #### L 503.6005 #### [facility] [address] [place], [address] MCHC (RBC) [Mass/Vol] 31.3 g/dL Low 32-36 [facility] Comment on above: Performed By: #### L 503.6005 #### [facility] [address] [place], [address] MCV (RBC) [Entitic vol] 92.1 fL Normal 80-94 [facility] Comment on above: Performed By: #### L 503.6005 #### [facility] [address] [place], [address] Monocytes/100 WBC (Bld) 6.8 % Normal 0-10 [facility] Comment on above: Performed By: #### L 503.6005 #### [facility] [address] [place], [address] Neutrophils/100 WBC (Bld) 54.5 % Normal 47-70 [facility] Comment on above: Performed By: #### L 503.6005 #### [facility] [address] [place], [address] Nucleated RBC (Bld) [#/Vol] 0 10*3/uL Normal 0-5 [facility] Comment on above: Performed By: #### L 503.6005 #### [facility] [address] [place], [address] Platelet mean volume (Bld) [Entitic vol] 9.8 fL Normal 6.2-12.0 [facility] Comment on above: Performed By: #### L 503.6005 #### [facility] [address] [place], [address] Platelets (Bld) [#/Vol] 275 10*3/uL Normal 150-450 [facility] Comment on above: Performed By: #### L 503.6005 #### [facility] [address] [place], [address] RBC (Bld) [#/Vol] 4.16 10*6/uL Low 4.6-6.2 [facility] Comment on above: Performed By: #### L 503.6005 #### [facility] [address] [place], [address] RDW SD 49.0 fl High 35.1-43.9 [facility] Comment on above: Performed By: #### L 503.6005 #### [facility] [address] [place], [address] WBC (Bld) [#/Vol] 7.5 10*3/uL Normal 4.4-11.0 [facility] Comment on above: Performed By: #### L 503.6005 #### [facility] [address] [place], [address] Basic Metabolic Profile (BMP )on 03-08-2024 BUN/CRE 8.1 RATIO Low 10-20 [facility] Comment on above: Performed By: #### L 500.4050, L501.2450 #### [facility] [address] [place], [address] CA,Total 8.7 mg/dL Normal 8.5-10.1 [facility] Comment on above: Performed By: #### L 500.4050, L501.2450 #### [facility] [address] [place], [address] Chloride [Moles/Vol] 111 mmol/L High 98-107 [facility] Comment on above: Performed By: #### L 500.4050, L501.2450 #### [facility] [address] [place], [address] CO2 [Moles/Vol] 25.0 mmol/L Normal 21.0-32.0 [facility] Comment on above: Performed By: #### L 500.4050, L501.2450 #### [facility] [address] [place], [address] Creatinine [Mass/Vol] 1.36 mg/dL High 0.70-1.30 [facility] Comment on above: Result Comment: The validity of the calculated GFR GFRAA in patients over 70 years has not been determined. Clinical correlation is essential. Performed By: #### L 500.4050, L501.2450 #### [facility] [address] [place], [address] ECRCL 53.68 ml/min Normal [facility] Comment on above: Performed By: #### L 500.4050, L501.2450 #### [facility] [address] [place], [address] EST GFR - AA 67 mL/min Normal >60 [facility] Comment on above: Result Comment: Afri can Nepalese GFR Calc Performed By: #### L 500.4050, L501.2450 #### [facility] [address] [place], [address] GAP 5 Normal 5-15 [facility] Comment on above: Performed By: #### L 500.4050, L501.2450 #### [facility] [address] [place], [address] GFR/1.73 sq M.predicted among non-blacks MDRD (S/P/Bld) [Vol rate/Area] 55 mL/min/{1.73_m2} Low >60 [facility] Comment on above: Result Comment: Non- GFR Calc Performed By: #### L 500.4050, L501.2450 #### [facility] [address] [place], [address] Glucose [Mass/Vol] 82 mg/dL Normal 74-106 [facility] Comment on above: Performed By: #### L 500.4050, L501.2450 #### [facility] [address] [place], [address] Potassium [Moles/Vol] 4.3 mmol/L Normal 3.5-5.1 [facility] Comment on above: Performed By: #### L 500.4050, L501.2450 #### [facility] [address] [place], [address] Sodium [Moles/Vol] 141 mmol/L Normal 136-145 [facility] Comment on above: Performed By: #### L 500.4050, L501.2450 #### [facility] [address] [place], [address] Urea nitrogen [Mass/Vol] 11 mg/dL Normal 7-18 [facility] Comment on above: Performed By: #### L 500.4050, L501.2450 #### [facility] [address] [place], [address] CBC W/Diff, Automatedon 10-0 8-2023 Absolute Lymph 2.40 X10 3/uL Normal 0.83-4.51 [facility] Comment on above: Performed By: #### L 500.4050, L501.2450 #### [facility] [address] [place], [address] Absolute Neut 4.1 X10 3/uL Normal 2.0-7.7 [facility] Comment on above: Performed By: #### L 500.4050, L501.2450 #### [facility] [address] [place], [address] Basophils/100 WBC (Bld) 1.1 % High 0-1 [facility] Comment on above: Performed By: #### L 500.4050, L501.2450 #### [facility] [address] [place], [address] Eosinophils/100 WBC (Bld) 4.6 % Normal 0-5 [facility] Comment on above: Performed By: #### L 500.4050, L501.2450 #### [facility] [address] [place], [address] Erythrocyte distribution width (RBC) [Ratio] 14.6 % Normal 11.6-14.6 [facility] Comment on above: Performed By: #### L 500.4050, L501.2450 #### [facility] [address] [place], [address] Hematocrit (Bld) [Volume fraction] 38.0 % Low 40-54 [facility] Comment on above: Performed By: #### L 500.4050, L501.2450 #### [facility] [address] [place], [address] Hemoglobin (Bld) [Mass/Vol] 12.0 g/dL Low 13.0-16.5 [facility] Comment on above: Performed By: #### L 500.4050, L501.2450 #### [facility] [address] [place], [address] IG% 1.500 High 0.0-0.9 [facility] Comment on above: Result Comment: IG% - Immature Granulocytes (promyelocytes, myelocytes and metamyelocytes) > 1% indicates that a LEFT SHIFT is Present. Performed By: #### L 500.4050, L501.2450 #### [facility] [address] [place], [address] Lymphocytes/100 WBC (Bld) 31.7 % Normal 19-41 [facility] Comment on above: Performed By: #### L 500.4050, L501.2450 #### [facility] [address] [place], [address] MCH (RBC) [Entitic mass] 29.6 pg Normal 27.0-32.0 [facility] Comment on above: Performed By: #### L 500.4050, L501.2450 #### [facility] [address] [place], [address] MCHC (RBC) [Mass/Vol] 31.6 g/dL Low 32-36 [facility] Comment on above: Performed By: #### L 500.4050, L501.2450 #### [facility] [address] [place], [address] MCV (RBC) [Entitic vol] 93.8 fL Normal 80-94 [facility] Comment on above: Performed By: #### L 500.4050, L501.2450 #### [facility] [address] [place], [address] Monocytes/100 WBC (Bld) 7.3 % Normal 0-10 [facility] Comment on above: Performed By: #### L 500.4050, L501.2450 #### [facility] [address] [place], [address] Neutrophils/100 WBC (Bld) 53.8 % Normal 47-70 [facility] Comment on above: Performed By: #### L 500.4050, L501.2450 #### [facility] [address] [place], [address] Nucleated RBC (Bld) [#/Vol] 0 10*3/uL Normal 0-5 [facility] Comment on above: Performed By: #### L 500.4050, L501.2450 #### [facility] [address] [place], [address] Platelet mean volume (Bld) [Entitic vol] 9.7 fL Normal 6.2-12.0 [facility] Comment on above: Performed By: #### L 500.4050, L501.2450 #### [facility] [address] [place], [address] Platelets (Bld) [#/Vol] 285 10*3/uL Normal 150-450 [facility] Comment on above: Performed By: #### L 500.4050, L501.2450 #### [facility] [address] [place], [address] RBC (Bld) [#/Vol] 4.05 10*6/uL Low 4.6-6.2 [facility] Comment on above: Performed By: #### L 500.4050, L501.2450 #### [facility] [address] [place], [address] RDW SD 50.4 fl High 35.1-43.9 [facility] Comment on above: Performed By: #### L 500.4050, L501.2450 #### [facility] [address] [place], [address] WBC (Bld) [#/Vol] 7.6 10*3/uL Normal 4.4-11.0 [facility] Comment on above: Performed By: #### L 500.4050, L501.2450 #### [facility] [address] [place], [address] CBC W/Diff, Automatedon 10-0 7-4 Absolute Lymph 1.95 X10 3/uL Normal 0.83-4.51 [facility] Comment on above: Performed By: #### L 503.6005 #### [facility] [address] [place], [address] Absolute Neut 6.2 X10 3/uL Normal 2.0-7.7 [facility] Comment on above: Performed By: #### L 503.6005 #### [facility] [address] [place], [address] Basophils/100 WBC (Bld) 0.9 % Normal 0-1 [facility] Comment on above: Performed By: #### L 503.6005 #### [facility] [address] [place], [address] Eosinophils/100 WBC (Bld) 3.5 % Normal 0-5 [facility] Comment on above: Performed By: #### L 503.6005 #### [facility] [address] [place], [address] Erythrocyte distribution width (RBC) [Ratio] 14.5 % Normal 11.6-14.6 [facility] Comment on above: Performed By: #### L 503.6005 #### [facility] [address] [place], [address] Hematocrit (Bld) [Volume fraction] 38.7 % Low 40-54 [facility] Comment on above: Performed By: #### L 503.6005 #### [facility] [address] [place], [address] Hemoglobin (Bld) [Mass/Vol] 11.9 g/dL Low 13.0-16.5 [facility] Comment on above: Performed By: #### L 503.6005 #### [facility] [address] [place], [address] IG% 1.400 High 0.0-0.9 [facility] Comment on above: Result Comment: IG% - Immature Granulocytes (promyelocytes, myelocytes and metamyelocytes) > 1% indicates that a LEFT SHIFT is Present. Performed By: #### L 503.6005 #### [facility] [address] [place], [address] Lymphocytes/100 WBC (Bld) 21.1 % Normal 19-41 [facility] Comment on above: Performed By: #### L 503.6005 #### [facility] [address] [place], [address] MCH (RBC) [Entitic mass] 28.7 pg Normal 27.0-32.0 [facility] Comment on above: Performed By: #### L 503.6005 #### [facility] [address] [place], [address] MCHC (RBC) [Mass/Vol] 30.7 g/dL Low 32-36 [facility] Comment on above: Performed By: #### L 503.6005 #### [facility] [address] [place], [address] MCV (RBC) [Entitic vol] 93.5 fL Normal 80-94 [facility] Comment on above: Performed By: #### L 503.6005 #### [facility] [address] [place], [address] Monocytes/100 WBC (Bld) 5.6 % Normal 0-10 [facility] Comment on above: Performed By: #### L 503.6005 #### [facility] [address] [place], [address] Neutrophils/100 WBC (Bld) 67.5 % Normal 47-70 [facility] Comment on above: Performed By: #### L 503.6005 #### [facility] [address] [place], [address] Nucleated RBC (Bld) [#/Vol] 0 10*3/uL Normal 0-5 [facility] Comment on above: Performed By: #### L 503.6005 #### [facility] [address] [place], [address] Platelet mean volume (Bld) [Entitic vol] 9.8 fL Normal 6.2-12.0 [facility] Comment on above: Performed By: #### L 503.6005 #### [facility] [address] [place], [address] Platelets (Bld) [#/Vol] 268 10*3/uL Normal 150-450 [facility] Comment on above: Performed By: #### L 503.6005 #### [facility] [address] [place], [address] RBC (Bld) [#/Vol] 4.14 10*6/uL Low 4.6-6.2 [facility] Comment on above: Performed By: #### L 503.6005 #### [facility] [address] [place], [address] RDW SD 49.6 fl High 35.1-43.9 [facility] Comment on above: Performed By: #### L 503.6005 #### [facility] [address] [place], [address] WBC (Bld) [#/Vol] 9.2 10*3/uL Normal 4.4-11.0 [facility] Comment on above: Performed By: #### L 503.6005 #### [facility] [address] [place], [address] Absolute Lymph 3.93 X10 3/uL Normal 0.83-4.51 [facility] Comment on above: Performed By: #### L 500.4050, L501.2450, L100.0100 ####[facility] [address] [place], [address] Absolute Neut 6.6 X10 3/uL Normal 2.0-7.7 [facility] Comment on above: Performed By: #### L 500.4050, L501.2450, L100.0100 ####[facility] [address] [place], [address] Basophils/100 WBC (Bld) 1.0 % Normal 0-1 [facility] Comment on above: Performed By: #### L 500.4050, L501.2450, L100.0100 ####[facility] [address] [place], [address] Eosinophils/100 WBC (Bld) 3.6 % Normal 0-5 [facility] Comment on above: Performed By: #### L 500.4050, L501.2450, L100.0100 ####[facility] [address] [place], [address] Erythrocyte distribution width (RBC) [Ratio] 14.5 % Normal 11.6-14.6 [facility] Comment on above: Performed By: #### L 500.4050, L501.2450, L100.0100 ####[facility] [address] [place], [address] Hematocrit (Bld) [Volume fraction] 41.3 % Normal 40-54 [facility] Comment on above: Performed By: #### L 500.4050, L501.2450, L100.0100 ####[facility] [address] [place], [address] Hemoglobin (Bld) [Mass/Vol] 12.9 g/dL Low 13.0-16.5 [facility] Comment on above: Performed By: #### L 500.4050, L501.2450, L100.0100 ####[facility] [address] [place], [address] IG% 1.300 High 0.0-0.9 [facility] Comment on above: Result Comment: IG% - Immature Granulocytes (promyelocytes, myelocytes and metamyelocytes) > 1% indicates that a LEFT SHIFT is Present. Performed By: #### L 500.4050, L501.2450, L100.0100 ####[facility] [address] [place], [address] Lymphocytes/100 WBC (Bld) 33.0 % Normal 19-41 [facility] Comment on above: Performed By: #### L 500.4050, L501.2450, L100.0100 ####[facility] [address] [place], [address] MCH (RBC) [Entitic mass] 29.0 pg Normal 27.0-32.0 [facility] Comment on above: Performed By: #### L 500.4050, L501.2450, L100.0100 ####[facility] [address] [place], [address] MCHC (RBC) [Mass/Vol] 31.2 g/dL Low 32-36 [facility] Comment on above: Performed By: #### L 500.4050, L501.2450, L100.0100 ####[facility] [address] [place], [address] MCV (RBC) [Entitic vol] 92.8 fL Normal 80-94 [facility] Comment on above: Performed By: #### L 500.4050, L501.2450, L100.0100 ####[facility] [address] [place], [address] Monocytes/100 WBC (Bld) 6.0 % Normal 0-10 [facility] Comment on above: Performed By: #### L 500.4050, L501.2450, L100.0100 ####[facility] [address] [place], [address] Neutrophils/100 WBC (Bld) 55.1 % Normal 47-70 [facility] Comment on above: Performed By: #### L 500.4050, L501.2450, L100.0100 ####[facility] [address] [place], [address] Nucleated RBC (Bld) [#/Vol] 0 10*3/uL Normal 0-5 [facility] Comment on above: Performed By: #### L 500.4050, L501.2450, L100.0100 ####[facility] [address] [place], [address] Platelet mean volume (Bld) [Entitic vol] 9.3 fL Normal 6.2-12.0 [facility] Comment on above: Performed By: #### L 500.4050, L501.2450, L100.0100 ####[facility] [address] [place], [address] Platelets (Bld) [#/Vol] 317 10*3/uL Normal 150-450 [facility] Comment on above: Performed By: #### L 500.4050, L501.2450, L100.0100 ####[facility] [address] [place], [address] RBC (Bld) [#/Vol] 4.45 10*6/uL Low 4.6-6.2 [facility] Comment on above: Performed By: #### L 500.4050, L501.2450, L100.0100 ####[facility] [address] [place], [address] RDW SD 49.5 fl High 35.1-43.9 [facility] Comment on above: Performed By: #### L 500.4050, L501.2450, L100.0100 ####[facility] [address] [place], [address] WBC (Bld) [#/Vol] 11.9 10*3/uL High 4.4-11.0 [facility] Comment on above: Performed By: #### L 500.4050, L501.2450, L100.0100 ####[facility] [address] [place], [address] Comprehensive Metabolic Prof [facility] 03-07-2024 Albumin [Mass/Vol] 2.6 g/dL Low 3.2-5.0 [facility] Comment on above: Performed By: #### L 503.6005 #### [facility] [address] [place], [address] Albumin/Globulin [Mass ratio] 0.8 {ratio} Low 0.9-2.4 [facility] Comment on above: Performed By: #### L 503.6005 #### [facility] [address] [place], [address] ALK P 110 U/L Normal 45-117 [facility] Comment on above: Performed By: #### L 503.6005 #### [facility] [address] [place], [address] ALT [Catalytic activity/Vol] 11 U/L Low 16-61 [facility] Comment on above: Performed By: #### L 503.6005 #### [facility] [address] [place], [address] AST [Catalytic activity/Vol] 11 U/L Low 15-37 [facility] Comment on above: Performed By: #### L 503.6005 #### [facility] [address] [place], [address] Bilirubin [Mass/Vol] 0.40 mg/dL Normal 0.20-1.00 [facility] Comment on above: Result Comment: For patients on eltrombopag therapy, use of Dimension [place] TBIL is not recommended. Performed By: #### L 503.6005 #### [facility] [address] [place], [address] BUN/CRE 12.2 RATIO Normal 10-20 [facility] Comment on above: Performed By: #### L 503.6005 #### [facility] [address] [place], [address] CA,Total 8.2 mg/dL Low 8.5-10.1 [facility] Comment on above: Performed By: #### L 503.6005 #### [facility] [address] [place], [address] Chloride [Moles/Vol] 115 mmol/L High 98-107 [facility] Comment on above: Performed By: #### L 503.6005 #### [facility] [address] [place], [address] CO2 [Moles/Vol] 22.0 mmol/L Normal 21.0-32.0 [facility] Comment on above: Performed By: #### L 503.6005 #### [facility] [address] [place], [address] Creatinine [Mass/Vol] 1.23 mg/dL Normal 0.70-1.30 [facility] Comment on above: Result Comment: The validity of the calculated GFR GFRAA in patients over 70 years has not been determined. Clinical correlation is essential. Performed By: #### L 503.6005 #### [facility] [address] [place], [address] ECRCL 59.35 ml/min Normal [facility] Comment on above: Performed By: #### L 503.6005 #### [facility] [address] [place], [address] EST GFR - AA 75 mL/min Normal >60 [facility] Comment on above: Result Comment: Afri can Nepalese GFR Calc Performed By: #### L 503.6005 #### [facility] [address] [place], [address] GAP 6 Normal 5-15 [facility] Comment on above: Performed By: #### L 503.6005 #### [facility] [address] [place], [address] GFR/1.73 sq M.predicted among non-blacks MDRD (S/P/Bld) [Vol rate/Area] 62 mL/min/{1.73_m2} Normal >60 [facility] Comment on above: Result Comment: Non- GFR Calc Performed By: #### L 503.6005 #### [facility] [address] [place], [address] Globulin (S) [Mass/Vol] 3.2 g/dL Normal 2.2-4.2 [facility] Comment on above: Performed By: #### L 503.6005 #### [facility] [address] [place], [address] Glucose [Mass/Vol] 87 mg/dL Normal 74-106 [facility] Comment on above: Performed By: #### L 503.6005 #### [facility] [address] [place], [address] Potassium [Moles/Vol] 4.2 mmol/L Normal 3.5-5.1 [facility] Comment on above: Performed By: #### L 503.6005 #### [facility] [address] [place], [address] Sodium [Moles/Vol] 142 mmol/L Normal 136-145 [facility] Comment on above: Performed By: #### L 503.6005 #### [facility] [address] [place], [address] T PROT 5.8 g/dL Low 6.4-8.2 [facility] Comment on above: Performed By: #### L 503.6005 #### [facility] [address] [place], [address] Urea nitrogen [Mass/Vol] 15 mg/dL Normal 7-18 [facility] Comment on above: Performed By: #### L 503.6005 #### [facility] [address] [place], [address] Albumin [Mass/Vol] 2.8 g/dL Low 3.2-5.0 [facility] Comment on above: Performed By: #### L 500.4050, L501.2450, L100.0100 ####[facility] [address] [place], [address] Albumin/Globulin [Mass ratio] 0.7 {ratio} Low 0.9-2.4 [facility] Comment on above: Performed By: #### L 500.4050, L501.2450, L100.0100 ####[facility] [address] [place], [address] ALK P 120 U/L High 45-117 [facility] Comment on above: Performed By: #### L 500.4050, L501.2450, L100.0100 ####[facility] [address] [place], [address] ALT [Catalytic activity/Vol] 17 U/L Normal 16-61 [facility] Comment on above: Performed By: #### L 500.4050, L501.2450, L100.0100 ####[facility] [address] [place], [address] AST [Catalytic activity/Vol] 13 U/L Low 15-37 [facility] Comment on above: Performed By: #### L 500.4050, L501.2450, L100.0100 ####[facility] [address] [place], [address] Bilirubin [Mass/Vol] 0.30 mg/dL Normal 0.20-1.00 [facility] Comment on above: Result Comment: For patients on eltrombopag therapy, use of Dimension [place] TBIL is not recommended. Performed By: #### L 500.4050, L501.2450, L100.0100 ####[facility] [address] [place], [address] BUN/CRE 11.9 RATIO Normal 10-20 [facility] Comment on above: Performed By: #### L 500.4050, L501.2450, L100.0100 ####[facility] [address] [place], [address] CA,Total 8.7 mg/dL Normal 8.5-10.1 [facility] Comment on above: Performed By: #### L 500.4050, L501.2450, L100.0100 ####[facility] [address] [place], [address] Chloride [Moles/Vol] 111 mmol/L High 98-107 [facility] Comment on above: Performed By: #### L 500.4050, L501.2450, L100.0100 ####[facility] [address] [place], [address] CO2 [Moles/Vol] 23.0 mmol/L Normal 21.0-32.0 [facility] Comment on above: Performed By: #### L 500.4050, L501.2450, L100.0100 ####[facility] [address] [place], [address] Creatinine [Mass/Vol] 1.35 mg/dL High 0.70-1.30 [facility] Comment on above: Result Comment: The validity of the calculated GFR GFRAA in patients over 70 years has not been determined. Clinical correlation is essential. Performed By: #### L 500.4050, L501.2450, L100.0100 ####[facility] [address] [place], [address] ECRCL 54.07 ml/min [facility] Comment on above: Performed By: #### L 500.4050, L501.2450, L100.0100 ####[facility] [address] [place], [address] EST GFR - AA 68 mL/min Normal >60 [facility] Comment on above: Result Comment: Afri can Nepalese GFR Calc Performed By: #### L 500.4050, L501.2450, L100.0100 ####[facility] [address] [place], [address] GAP 6 Normal 5-15 [facility] Comment on above: Performed By: #### L 500.4050, L501.2450, L100.0100 ####[facility] [address] [place], [address] GFR/1.73 sq M.predicted among non-blacks MDRD (S/P/Bld) [Vol rate/Area] 56 mL/min/{1.73_m2} Low >60 [facility] Comment on above: Result Comment: Non- GFR Calc Performed By: #### L 500.4050, L501.2450, L100.0100 ####[facility] [address] [place], [address] Globulin (S) [Mass/Vol] 3.8 g/dL Normal 2.2-4.2 [facility] Comment on above: Performed By: #### L 500.4050, L501.2450, L100.0100 ####[facility] [address] [place], [address] Glucose [Mass/Vol] 111 mg/dL High 74-106 [facility] Comment on above: Result Comment: Fast ing Glucose result from 100 to 125 mg/dL suggests IMPAIRED HOMEOSTASIS per A.D.A. criteria. Performed By: #### L 500.4050, L501.2450, L100.0100 ####[facility] [address] [place], [address] Potassium [Moles/Vol] 3.9 mmol/L Normal 3.5-5.1 [facility] Comment on above: Performed By: #### L 500.4050, L501.2450, L100.0100 ####[facility] [address] [place], [address] Sodium [Moles/Vol] 140 mmol/L Normal 136-145 [facility] Comment on above: Performed By: #### L 500.4050, L501.2450, L100.0100 ####[facility] [address] [place], [address] T PROT 6.6 g/dL Normal 6.4-8.2 [facility] Comment on above: Performed By: #### L 500.4050, L501.2450, L100.0100 ####[facility] [address] [place], [address] Urea nitrogen [Mass/Vol] 16 mg/dL Normal 7-18 [facility] Comment on above: Performed By: #### L 500.4050, L501.2450, L100.0100 ####[facility] [address] [place], [address] Consultation - Cardiologyon 03-07-2024 Consultation - Cardiology [facility] Medical Records Department [address] [place] [address] Consultation - Cardiology 03/07/24 1316 MR#: [id number] Acct: [id number] Name: CHEY WALKER Rep #: [id number] : 1955 68 From: Clovis Robles MD PCP: Dr. Annika Villasenor MD Status:ADM IN Location: [address] Assessment Plan Assessment/Plan (1) Preop cardiovascular exam: PLAN: In terms of preoperative cardiovascular evaluation he does not have any chest discomfort. He has had stable cardiovascular exam and at this time I would not recommend that we make any changes. His Plavix can be discontinued and he can undergo his intended surgery later on this week. (2) Presence of coronary angioplasty implant and graft: PLAN: He is status post coronary bypass surgery and stenting as noted above. I would not make any changes at this time. (3) HTN (hypertension): PLAN: His blood pressure is not under good control. We will optimize his medical therapy at this particular time. (4) Hyperlipidemia: PLAN: He does have a history of hyperlipidemia and will continue with aggressive risk factor modification. HPI Consult Data Date of Consult: 03/07/24 HPI Narrative HPI Narrative: CHEY WALKER, is a 68 M who presents with abdominal discomfort and was diagnosed as having cholecystitis. He apparently left AMA from the emergency room a few weeks ago and now presents back. Cardiology was consulted because he has an extensive cardiac history and he has been on clopidogrel which has not been discontinued. He does have an underlying extensive cardiac and peripheral vascular history with abdominal aortic aneurysm/mural thrombus, with a history of underlying CAD, PCI of the left anterior descending artery, diagonal vessel, and circumflex artery. He also has a history of previous coronary bypass surgery CABG, ischemic mediated cardiomyopathy, extensive peripheral arterial occlusive disease, hyperlipidemia, hypertension. He denies any chest pain or shortness of breath or paroxysmal nocturnal dyspnea pedal edema he has had no neck arm or jaw discomfort suggest angina. Patient did undergo a heart catheterization in [facility] which demonstrated normal left main coronary artery, a 100% occlusion of the mid LAD descending artery, a 100% severe in-stent restenosis of the ostial diagonal coronary artery stent, thrombolysis in myocardial infarction 1 flow. 95% in-stent restenosis of the mid left circumflex coronary artery stent. 100% occlusion of the ostial proximal [place] right coronary artery, right to right collateral fill the right ventricular marginal branches. Known occluded SVG to the ramus intermedius, [place] ramus intermedius has severe epicardial obstructive coronary artery disease. Occluded SVG to the right posterior lateral branch, free left internal mammary artery graft originates from the saphenous vein graft to the right posterior lateral branch. Medical management has been recommended. [facility] Medical History (Updated 03/07/24 @ 13:[address] Clovis Robles MD) Hypertension Personal history of colonic polyps Ischemic colitis History of pneumonia Presence of stent in coronary artery ( 06/08/19) Old myocardial infarction Atherosclerotic heart disease of [place] coronary artery without angina pectoris Hyperlipidemia Cardiomyopathy PAD (peripheral artery disease) CAD in [place] artery NSTEMI (non-ST elevated myocardial infarction) Essential hypertension Heart disease Arthritis HTN (hypertension) Home Medications ???Medication ???Instructions ???Recorded ???Last Taken ???Type clopidogrel 75 mg tablet (Plavix) 75 mg PO QDAY 07/24/17 10/31/23 History aspirin 81 mg tablet,delayed 81 mg PO DAILY@0800 01/30/19 10/31/23 History release atorvastatin 80 mg tablet 80 mg PO QHS 02/16/19 10/30/23 History lisinopril 5 mg tablet 5 mg PO QHS blood pressure 08/08/19 10/30/23 History nitroglycerin 0.4 mg sublingual 0.4 mg sublingual Q5-15M PRN Pain, 08/08/19 Unknown History tablet Mild pantoprazole 40 mg tablet,delayed 40 mg PO DAILY GERD 03/31/21 10/31/23 History release omeprazole 40 mg capsule,delayed 40 mg PO DAILY #30 caps 12/15/23 Unknown Rx release hydroxychloroquine 200 mg tablet 200 mg PO BID 02/22/24 Unknown History prednisone 10 mg tablet 10 mg PO DAILY 03/05/24 Unknown History metoprolol tartrate 25 mg tablet 25 mg PO BID Heart 03/07/24 Unknown History Allergy/AdvReac Type Severity Reaction Status Date / Time Sulfa (Sulfonamide Allergy Other Verified 03/07/24 02:40 Antibiotics) Family History Father CAD (coronary artery disease) Mother Cancer CAD (coronary artery disease) Surgical History (Updated 03/07/24 @ 13:[address] Clovis Robles MD) Presence of coronary angioplasty implant and graft ( 06/08/19) History (more content not included)... [facility] Consultation - Surgicalon Consultation - Surgical [facility] Medical Records Department [address] [place] [address] Consultation - Surgical 03/07/24 1030 MR#: [id number] Acct: [id number] Name: CHEY WALKER Rep #: [id number] : 1955 68 From: Jarred Waddell MD PCP: Dr. Annika Villasenor MD Status:ADM IN Location: [place] [address] Assessment Plan Assessment/Plan (1) Calculous cholecystitis: PLAN: Patient seems to have chronic cholecystitis. He keeps presenting with cholecystitis symptoms and then they disappear and then he goes back home. I recommended laparoscopic cholecystectomy to him. Patient is a Plavix that we will have to wait for the Plavix to wear off. I tentatively have him scheduled for afternoon. I discussed surgery with him in detail. I will give him full liquids until . Jarred Waddell MD Pager: [facility] [address] [place] [address], [address] [place] [address] Office: HPI Consult Data Date of Consult: 03/07/24 HPI Narrative HPI Narrative: CHEY WALKER, is a 68 M who presents with epigastric pain. The patient has been in the emergency room several times for this. He was supposed to follow-up and never did and he came back in Thursday and left AMA and now he is back again with epigastric pain that has recurred. He denies nausea vomiting or fevers or chills. Pain is in the epigastric region and does not radiate. [facility] Medical History Hypertension Personal history of colonic polyps Ischemic colitis History of pneumonia Presence of stent in coronary artery ( 06/08/19) Old myocardial infarction Atherosclerotic heart disease of [place] coronary artery without angina pectoris Hyperlipidemia Cardiomyopathy PAD (peripheral artery disease) CAD in [place] artery NSTEMI (non-ST elevated myocardial infarction) Essential hypertension Heart disease Arthritis HTN (hypertension) Home Medications ???Medication ???Instructions ???Recorded ???Last Taken ???Type clopidogrel 75 mg tablet (Plavix) 75 mg PO QDAY 07/24/17 10/31/23 History aspirin 81 mg tablet,delayed 81 mg PO DAILY@0800 01/30/19 10/31/23 History release atorvastatin 80 mg tablet 80 mg PO QHS 02/16/19 10/30/23 History lisinopril 5 mg tablet 5 mg PO QHS blood pressure 08/08/19 10/30/23 History nitroglycerin 0.4 mg sublingual 0.4 mg sublingual Q5-15M PRN Pain, 08/08/19 Unknown History tablet Mild pantoprazole 40 mg tablet,delayed 40 mg PO DAILY GERD 03/31/21 10/31/23 History release omeprazole 40 mg capsule,delayed 40 mg PO DAILY #30 caps 12/15/23 Unknown Rx release hydroxychloroquine 200 mg tablet 200 mg PO BID 02/22/24 Unknown History prednisone 10 mg tablet 10 mg PO DAILY 03/05/24 Unknown History metoprolol tartrate 25 mg tablet 25 mg PO BID Heart 03/07/24 Unknown History Allergy/AdvReac Type Severity Reaction Status Date / Time Sulfa (Sulfonamide Allergy Other Verified 03/07/24 02:40 Antibiotics) Family History Father CAD (coronary artery disease) Mother Cancer CAD (coronary artery disease) Surgical History Presence of coronary angioplasty implant and graft ( 06/08/19) History of coronary artery bypass surgery ( 2000) Abdominal aortic aneurysm without rupture S/P PTCA (percutaneous transluminal coronary angioplasty) History of open heart surgery History of ozbpt-pxgvf-evpmbxr bypass Social History (Updated 03/07/24 @ 04:[address] Aruna Tovar MD) household members: none Smoking Status: Current some day smoker tobacco type: cigarettes Smoking packs per day: 0.24 Smoking cigarettes per day: 4.8 alcohol intake: current alcohol intake frequency: holidays/special occasions only substance use type: does not use ROS Constitutional Constitutional: Denies anorexia, chills, fatigue or fever(s) Eyes Eyes: Denies blurry vision ENT HEENT: Denies abnormal hearing Respiratory/Chest Respiratory/Chest: Denies cough or dyspnea Gastrointestinal Gastrointestinal: Reports abdominal pain; Denies diarrhea, dysphagia, nausea or vomiting Musculoskeletal Musculoskeletal: Denies abnormal gait Integumentary Integumentary: Denies jaundice Neurologic Neurologic: Denies dizziness Physical Exam Const alert and oriented x3 HEENT normocephalic Eyes PERRL Lymph Lymphatic: no lymphadenopathy noted Resp normal respiratory effort Cardio Rate: regular rate Rhythm: regular rhythm GI soft to palpation Palpation: tender epigastric Lab / Micro Data 03/07/24 06:25 03/07/24 02:46 Labs: Laboratory Results - last 24 hr 03/07/24 02:46: WBC 11.9 H, RBC 4.45 L, Hgb 12.9 L, Hct 41.3, MCV 92.8, MC (more content not included)... [facility] Echo Completeon 03-07-2024 Echo [facility] [address] [place] [address] Echo Complete 03/07/24 1427 MR#: [id number] Acct: [id number] Name: CHEY WALKER Rep #: [id number] : 1955 68 From: Clovis Robles MD Attending Dr: Dr. Tommy Washington MD Status : ADM IN Ordering Dr: Clovis Robles MD Date: 03/07/24 Location: [facility] Sex: M C Admitted: 03/07/24 Reason For Study: CAD/ASHD Procedure This was a 2D Doppler, Color Flow transthoracic echocardiogram. Exam performed portable in patient room. Left Ventricle Normal LV size. Left ventricular systolic function is normal. The left ventricular ejection fraction is 60 %. No regional wall motion abnormalities noted. Right Ventricle Normal RV size. Normal systolic function. Atria The left atrium is moderately enlarged. Normal right atrium. Tricuspid Valve Normal tricuspid valve. Mild tricuspid valve insufficiency. Pulmonary artery systolic pressure is 30 mmHg. Aortic Valve Trisinus/trileaflet aortic valve. Mild focal aortic valve calcification. Pulmonic Valve Normal pulmonic valve. Great Vessels Calcified aortic root. Moderate atherosclerosis of the aortic arch. The pulmonary artery is normal size. Inferior vena cava collapse with respiration. Pericardium/Pleural No pericardial effusion. MMode/2D Measurements Calculations LVIDd: 5.0 cm IVSd: 1.4 cm LVOT diam: 1.9 cm LVIDs: 4.1 cm LVPWd: 1.0 cm LVOT area: 2.9 cm2 RVDd: 3.4 cm FS: 18.8 % Ao root diam: 3.0 cm asc Aorta Diam: 3.1 cm LAV(MOD-bp): 81.9 ml LA dimension: 4.1 cm LAV(MOD-bp) Indexed: 40.6 ml/m2 LAV(MOD-sp2): 65.5 ml LAV(MOD-sp4): 89.2 ml LA A4 area: 26.0 cm2 RA A4 area: 16.9 cm2 TAPSE: 1.7 cm Time Measurements MV dec time: 0.17 sec Doppler Measurements Calculations MV E max garland: 104.9 cm/sec Lat Peak E' Garland: 8.5 cm/sec Med Peak E' Garland: 8.3 cm/sec MV A max garland: 74.6 cm/sec E/E' lat: 12.3 E/E' med: 12.6 MV E/A: 1.4 MV V2 max: 122.7 cm/sec MV P1/2t max garland: 123.2 cm/sec Ao V2 max: 128.5 cm/sec MV max P.0 mmHg MV P1/2t: 75.5 msec Ao max P.6 mmHg MV V2 mean: 57.9 cm/sec MV dec slope: 478.1 cm/sec2 Ao V2 mean: 92.0 cm/sec MV mean P.7 mmHg MVA(P1/2t): 2.9 cm2 Ao mean P.8 mmHg MV V2 VTI: 45.8 cm Ao V2 VTI: 32.0 cm MVA(VTI): 1.4 cm2 AV (velocity ratio): 0.72 JESSICA(I,D): 2.1 cm2 JESSICA(V,D): 2.1 cm2 LV V1 max: 93.6 cm/sec MR max garland: 533.1 cm/sec SV(LVOT): 66.4 ml LV V1 max P.5 mmHg MR max P.7 mmHg LV V1 mean P.8 mmHg LV V1 mean: 63.9 cm/sec LV V1 VTI: 23.0 cm PA V2 max: 71.3 cm/sec TR max garland: 262.7 cm/sec PA max PG (full): 0.54 mmHg TR max P.6 mmHg ECHO/Echo Complete Interpretation Summary Normal LV size. Left ventricular systolic function is normal. The left ventricular ejection fraction is 60 %. Mild focal aortic valve calcification. Calcified aortic root. Ordering Physician: Clovis Robles Performed By: Kiran Frausto and Student 03/07/24 1622 Date Clovis Robles MD CC: Dr. Clovis Robles MD; Dr. Annika Villasenor MD; Dr. Tommy Washington MD Date Dictated: 03/07/24 1427 Date Transcribed: 03/07/24 1622 Senior Oracle Database Administrator: Signed [facility] Emergency Department Summary on 03-07-2024 Emergency Department Summary [facility] Medical Records Department [address] [place] [address] Emergency Department Summary 03/07/24 MR#: [id number] Acct: [id number] Name: CHEY WALKER Rep #: [id number] : 1955 68 From: Mihir Zavaleta MD PCP: Dr. Annika Villasenor MD Status:ADM IN Location: [facility] NI170-1 HPI HPI - GI History of Present Illness Chief Complaint: Abd Pain Informant: patient Narrative Narrative: 68-year-old male presenting with recurrence epigastric pain and nausea. Here for this several times recently, went home from the ED AGAINST MEDICAL ADVICE day before yesterday because of the same thing, but now although it resolved temporarily it came back without clear trigger and he states he changed his mind and would like to be admitted to get this taken care of. He has known cholelithiasis, he has had multiple imaging of the abdomen and the gallbladder showing signs of acute cholecystitis, however there have been times when he was pain-free. Ultrasound couple days ago showed signs of cholecystitis and since he was not pain-free was advised to stay but he did not want to understanding that he is on clopidogrel and he would have to discontinue it for several days before he could have an operation since he was not septic. At this time he states his symptoms are the same as the episodes he was having before. They have been more frequent in the past week. 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 Hyperlipidemia Cardiomyopathy PAD (peripheral artery disease) CAD in [place] artery NSTEMI (non-ST elevated myocardial infarction) Essential hypertension Heart disease Arthritis HTN (hypertension) Home Medications ???Medication ???Instructions ???Recorded ???Last Taken ???Type clopidogrel 75 mg tablet (Plavix) 75 mg PO QDAY 07/24/17 10/31/23 History aspirin 81 mg tablet,delayed 81 mg PO DAILY@0800 01/30/19 10/31/23 History release atorvastatin 80 mg tablet 80 mg PO QHS 02/16/19 10/30/23 History lisinopril 5 mg tablet 5 mg PO QHS blood pressure 08/08/19 10/30/23 History nitroglycerin 0.4 mg sublingual 0.4 mg sublingual Q5-15M PRN Pain, 08/08/19 Unknown History tablet Mild pantoprazole 40 mg tablet,delayed 40 mg PO DAILY GERD 10/31/21 06/01/24 History release omeprazole 40 mg capsule,delayed 40 mg PO DAILY #30 caps 12/15/23 Unknown Rx release hydroxychloroquine 200 mg tablet 200 mg PO BID 02/22/24 Unknown History prednisone 10 mg tablet 10 mg PO DAILY 03/05/24 Unknown History metoprolol tartrate 25 mg tablet 25 mg PO DAILY 03/07/24 Unknown History Allergy/AdvReac Type Severity Reaction Status Date / Time Sulfa (Sulfonamide Allergy Other Verified 03/07/24 02:40 Antibiotics) Family History Father CAD (coronary artery disease) Mother Cancer CAD (coronary artery disease) Surgical History Presence of coronary angioplasty implant and graft ( 06/08/19) History of coronary artery bypass surgery ( 2000) Abdominal aortic aneurysm without rupture S/P PTCA (percutaneous transluminal coronary angioplasty) History of open heart surgery History of ckagk-ukrhu-fgqhltq bypass Social History Smoking Status: Current some day smoker tobacco type: cigarettes alcohol intake: current alcohol intake frequency: a few times a week Alcohol type: beer and hard liquor substance use type: does not use ROS ROS ED Constitutional Constitutional ED: Denies chills or fever(s) Eyes Eyes: Denies change in vision or diplopia ENT ENT ED: Denies rhinorrhea or sore throat Cardiovascular Cardiovascular: Denies chest pain or palpitations Respiratory/Chest Respiratory/Chest: Denies cough or dyspnea Gastrointestinal Gastrointestinal: Reports abdominal pain and nausea; Denies diarrhea or vomiting Genitourinary Genitourinary ED: Denies dysuria or hematuria Musculoskeletal Musculoskeletal: Denies back pain or neck pain Integumentary Denies abscess or rash Neurologic Neurologic: Denies headache(s), paresthesias or weakness Psychiatric Psychiatric: Denies anxiety or suicidal thoughts EXAM Physical Exam Const Vital Signs: 03/07/24 02:40 Temperature 97.7 F L Temperature Source Oral Pulse Rate 70 Respiratory Rate 18 Blood Pressure 201/89 H Blood Pressure Mean 126 Pulse Ox 100 Oxygen Delivery Method Room Air Positive well nourished and well developed Gen (more content not included)... [facility] H AND P Exam - Hospitaliston 03-07-2024 H&P Exam - Hospitalist [facility] Medical Records Department [address] [place] [address] H P Exam - Hospitalist 03/07/24 0408 MR#: [id number] Acct: [id number] Name: CHEY WALKER Rep #: [id number] : 1955 68 From: Aruna Tovar MD PCP: Dr. Annika Villasenor MD Status:ADM IN Location: [facility] KD171-3 HPI - General General Date of Admission: 03/07/24 Date of Service: 03/07/24 Chief Complaint: Intractable abdominal pain HPI Narrative The patient is a 68 y/o M w/ PMHx: CKD stage III unclear subtype, Chronic anemia, Hx ischemic colitis suspected previously secondary to hypoperfusion event, CAD s/p NSTEMI, CABG x 3 and PCI (PCI/VICKIE to LCX/OM2 06/08/19; PCI/stent to LAD, D1 and LCX 09/16), HTN, HLD, AAA status postrepair 1994 with endovascular stenting placed multiple years previously with currently noted 4.7 cm saccular without rupture PAD status post aortoiliac femoral bypass, Rheumatoid arthritis, GERD, Tobacco use, Chronic abdominal pain, recent 03/05/2024 ED visit secondary to recurrent epigastric abdominal pain which has been seen multiple times with associated nausea without emesis with recent upper endoscopy with moderate Schatzki's ring suspicious of duodenal fistula and colonoscopy with nonbleeding ulcer at mucosa of the sigmoid colon with ischemic changes and capsule endoscopy with findings suggestive of celiac versus IBD versus NSAID induced enteritis as well as prior to this recent CTA abdomen and pelvis with pericholecystic fluid suggestive of acute cholecystitis associated with small calcified gallstones with a stable 4.7 cm saccular aneurysm of the infrarenal abdominal aorta with no evidence of any ischemic process with 03/05/2024 abdominal ultrasound with evidence of cholelithiasis with mild gallbladder wall thickening concerning for acute cholecystitis now representing to the [facility] ED on 03/07/2024 as patient during the previous visit despite recommendation for admission per surgeon had left AMA now returning with again ongoing epigastric discomfort and nausea which remains intermittent and has been more frequent over the last week. Patient in the ED reporting pain 1/10 in severity currently following ED interventions and denies any nausea. He notes that these episodes of pain always occur in the early am, often awakening him in his sleep. He ate a sandwich for dinner at 8 pm but again does not seem to worsen after oral intake even by 1-2 hours. He notes the pain is accommodation of dull aching and sharp stabbing. Current workup included T97.7, heart rate 70, BP 2 , respiratory rate 18, 100% room air, CBC with WBC 11.9, hemoglobin 12.9, MCV 92.8, platelet 317 with increased immature granulocytes, CMP with chloride 111, BUN/creatinine 16/1.35, GFR 56, glucose 111, total bilirubin 0.30, AST/ALT 13/17, alk phos 120, lipase 54, lactic acid 2.0. In the ED patient administered 1 L normal saline, Dilaudid 1 mg IV x 1, morphine 4 mg IV x 1, Zofran 4 mg IV x 1 as well as IV Zosyn 3.375 g IV x 1. [facility] Medical History Hypertension Personal history of colonic polyps Ischemic colitis History of pneumonia Presence of stent in coronary artery ( 06/08/19) Old myocardial infarction Atherosclerotic heart disease of [place] coronary artery without angina pectoris Hyperlipidemia Cardiomyopathy PAD (peripheral artery disease) CAD in [place] artery NSTEMI (non-ST elevated myocardial infarction) Essential hypertension Heart disease Arthritis HTN (hypertension) Home Medications ???Medication ???Instructions ???Recorded ???Last Taken ???Type clopidogrel 75 mg tablet (Plavix) 75 mg PO QDAY 07/24/17 10/31/23 History aspirin 81 mg tablet,delayed 81 mg PO DAILY@0800 01/30/19 10/31/23 History release atorvastatin 80 mg tablet 80 mg PO QHS 02/16/19 10/30/23 History lisinopril 5 mg tablet 5 mg PO QHS blood pressure 08/08/19 10/30/23 History nitroglycerin 0.4 mg sublingual 0.4 mg sublingual Q5-15M PRN Pain, 08/08/19 Unknown History tablet Mild pantoprazole 40 mg tablet,delayed 40 mg PO DAILY GERD 03/31/21 10/31/23 History release omeprazole 40 mg capsule,delayed 40 mg PO DAILY #30 caps 12/15/23 Unknown Rx release hydroxychloroquine 200 mg tablet 200 mg PO BID 02/22/24 Unknown History prednisone 10 mg tablet 10 mg PO DAILY 03/05/24 Unknown History metoprolol tartrate 25 mg tablet 25 mg PO DAILY 03/07/24 Unknown History Allergy/AdvReac Type Severity Reaction Status Date / Time Sulfa (Sulfonamide Allergy Other Verified 03/07/24 02:40 Antibiotics) Family History Father CAD (coronary artery disease) Mother Cancer CAD (coronary artery disease) Surgical History Presence of coronary angioplasty implant and graft ( (more content not included)... Normal [facility] Lactic Acidon 03-07-2024 Lactate [Moles/Vol] 1.4 mmol/L Normal 0.4-1.9 [facility] Comment on above: Performed By: #### L 503.6005 #### [facility] [address] [facility] [address] Lactate [Moles/Vol] 2.0 mmol/L Normal 0.4-1.9 [facility] Comment on above: Order Comment: Y Result Comment: Crit ical Result(s) Called at: 03:48:57 03/07/2024 by: Leela Greer SHuff2. Results read back by same. Performed By: #### L 503.6005 #### [facility] [address] [facility] [address] Lipaseon 03-07-2024 Lipase [Catalytic activity/Vol] 54 U/L Normal 13-75 [facility] Comment on above: Result Comment: Luz nelson note: LIPASE revised reference range effective 22. New Lipase methodology. Expected to produce lower values than the previous assay method. NEW Reference Range: 13 - 75 U/L Performed By: #### L 500.4050, L501.2450, L100.0100 ####[facility] [address] [place] [id number] Magnesiumon 03-07-2024 Magnesium [Mass/Vol] 1.6 mg/dL Normal 1.6-2.6 [facility] Comment on above: Order Comment: Comme nts: may add to ED labs Performed By: #### L 501.5200 ####[facility] [address] [place], [place], [address] Abdomen Limitedon 03-05-2024 Abdomen Limited [facility] [address] [place], [place] [address] Abdomen Limited MR#: [id number] Acct: [id number] Name: CHEY WALKER Rep #: [id number] : 1955 M 68 From: Joan bañuelos MD PCP: Dr. Annika Villasenor MD Status: REG ER Study: Abdomen Limited Date of Exam: 03/05/24 Exam# [id number] Ordering Dr: Kiran Guy DO [id number] HISTORY: Epigastric/RUQ abdominal pain. TECHNIQUE: Alarcon scale and color doppler imaging was performed of the right upper quadrant. 73 images. COMPARISON: CTA 02/22/2024. FINDINGS: LIVER: 14.7 cm in length. Homogeneous echotexture without focal lesion demonstrated. No intrahepatic ductal dilatation. MAIN PORTAL VEIN: Patent with flow in the appropriate direction. COMMON BILE DUCT: 3 mm in diameter. GALLBLADDER: Multiple gallstones extending in the gallbladder neck. 5 mm wall thickness. No pericholecystic fluid. Sonographic Rojo sign negative. PANCREAS: Not well visualized due to overlying bowel gas. RIGHT KIDNEY: 9.7 cm in length with a cortical thickness of 1.2 cm. No hydronephrosis or gross renal mass demonstrated. US/Abdomen Limited IMPRESSION: Cholelithiasis with mild gallbladder wall thickening, concerning for acute cholecystitis in the appropriate clinical setting. Electronically Signed: Joan iVlla MD at 8:20 EDT , CC: Dr. Kiran Guy DO; Dr. Annika Villasenor MD Senior Oracle Database Administrator: Signed Normal [facility] CBC W/Diff, Automatedon 10-0 Absolute Lymph 3.25 X10 3/uL Normal 0.83-4.51 [facility] Comment on above: Performed By: #### L 500.4050, L501.2450 #### [facility] [address] [place], [address] Absolute Neut 7.8 X10 3/uL High 2.0-7.7 [facility] Comment on above: Performed By: #### L 500.4050, L501.2450 #### [facility] [address] [place], [address] Basophils/100 WBC (Bld) 0.7 % Normal 0-1 [facility] Comment on above: Performed By: #### L 500.4050, L501.2450 #### [facility] [address] [place], [address] Eosinophils/100 WBC (Bld) 2.9 % Normal 0-5 [facility] Comment on above: Performed By: #### L 500.4050, L501.2450 #### [facility] [address] [place], [address] Erythrocyte distribution width (RBC) [Ratio] 14.4 % Normal 11.6-14.6 [facility] Comment on above: Performed By: #### L 500.4050, L501.2450 #### [facility] [address] [place], [address] Hematocrit (Bld) [Volume fraction] 42.7 % Normal 40-54 [facility] Comment on above: Performed By: #### L 500.4050, L501.2450 #### [facility] [address] [place], [address] Hemoglobin (Bld) [Mass/Vol] 13.4 g/dL Normal 13.0-16.5 [facility] Comment on above: Performed By: #### L 500.4050, L501.2450 #### [facility] [address] [place], [address] IG% 1.000 High 0.0-0.9 [facility] Comment on above: Result Comment: IG% - Immature Granulocytes (promyelocytes, myelocytes and metamyelocytes) > 1% indicates that a LEFT SHIFT is Present. Performed By: #### L 500.4050, L501.2450 #### [facility] [address] [place], [address] Lymphocytes/100 WBC (Bld) 26.6 % Normal 19-41 [facility] Comment on above: Performed By: #### L 500.4050, L501.2450 #### [facility] [address] [place], [address] MCH (RBC) [Entitic mass] 29.0 pg Normal 27.0-32.0 [facility] Comment on above: Performed By: #### L 500.4050, L501.2450 #### [facility] [address] [place], [address] MCHC (RBC) [Mass/Vol] 31.4 g/dL Low 32-36 [facility] Comment on above: Performed By: #### L 500.4050, L501.2450 #### [facility] [address] [place], [address] MCV (RBC) [Entitic vol] 92.4 fL Normal 80-94 [facility] Comment on above: Performed By: #### L 500.4050, L501.2450 #### [facility] [address] [place], [address] Monocytes/100 WBC (Bld) 5.1 % Normal 0-10 [facility] Comment on above: Performed By: #### L 500.4050, L501.2450 #### [facility] [address] [place], [address] Neutrophils/100 WBC (Bld) 63.7 % Normal 47-70 [facility] Comment on above: Performed By: #### L 500.4050, L501.2450 #### [facility] [address] [place], [address] Nucleated RBC (Bld) [#/Vol] 0 10*3/uL Normal 0-5 [facility] Comment on above: Performed By: #### L 500.4050, L501.2450 #### [facility] [address] [place], [address] Platelet mean volume (Bld) [Entitic vol] 9.6 fL Normal 6.2-12.0 [facility] Comment on above: Performed By: #### L 500.4050, L501.2450 #### [facility] [address] [place], [address] Platelets (Bld) [#/Vol] 316 10*3/uL Normal 150-450 [facility] Comment on above: Performed By: #### L 500.4050, L501.2450 #### [facility] [address] [place], [address] RBC (Bld) [#/Vol] 4.62 10*6/uL Normal 4.6-6.2 [facility] Comment on above: Performed By: #### L 500.4050, L501.2450 #### [facility] [address] [place], [address] RDW SD 48.9 fl High 35.1-43.9 [facility] Comment on above: Performed By: #### L 500.4050, L501.2450 #### [facility] [address] [place], [address] WBC (Bld) [#/Vol] 12.2 10*3/uL High 4.4-11.0 [facility] Comment on above: Performed By: #### L 500.4050, L501.2450 #### [facility] [address] [place], [address] Comprehensive Metabolic Prof ilon 03-05-2024 Albumin [Mass/Vol] 3.2 g/dL Normal 3.2-5.0 [facility] Comment on above: Performed By: #### L 500.4050, L501.2450 #### [facility] [address] [place], [address] Albumin/Globulin [Mass ratio] 0.8 {ratio} Low 0.9-2.4 [facility] Comment on above: Performed By: #### L 500.4050, L501.2450 #### [facility] [address] [place], [address] ALK P 126 U/L High 45-117 [facility] Comment on above: Performed By: #### L 500.4050, L501.2450 #### [facility] [address] [place], [address] ALT [Catalytic activity/Vol] 12 U/L Low 16-61 [facility] Comment on above: Performed By: #### L 500.4050, L501.2450 #### [facility] [address] [place], [address] AST [Catalytic activity/Vol] 11 U/L Low 15-37 [facility] Comment on above: Performed By: #### L 500.4050, L501.2450 #### [facility] [address] [place], [address] Bilirubin [Mass/Vol] 0.50 mg/dL Normal 0.20-1.00 [facility] Comment on above: Result Comment: For patients on eltrombopag therapy, use of Dimension [place] TBIL is not recommended. Performed By: #### L 500.4050, L501.2450 #### [facility] [address] [place], [address] BUN/CRE 13.9 RATIO Normal 10-20 [facility] Comment on above: Performed By: #### L 500.4050, L501.2450 #### [facility] [address] [place], [address] CA,Total 9.3 mg/dL Normal 8.5-10.1 [facility] Comment on above: Performed By: #### L 500.4050, L501.2450 #### [facility] [address] [place], [address] Chloride [Moles/Vol] 108 mmol/L High 98-107 [facility] Comment on above: Performed By: #### L 500.4050, L501.2450 #### [facility] [address] [place], [address] CO2 [Moles/Vol] 24.0 mmol/L Normal 21.0-32.0 [facility] Comment on above: Performed By: #### L 500.4050, L501.2450 #### [facility] [address] [place], [address] Creatinine [Mass/Vol] 1.37 mg/dL High 0.70-1.30 [facility] Comment on above: Result Comment: The validity of the calculated GFR GFRAA in patients over 70 years has not been determined. Clinical correlation is essential. Performed By: #### L 500.4050, L501.2450 #### [facility] [address] [place], [address] ECRCL 53.28 ml/min Normal [facility] Comment on above: Performed By: #### L 500.4050, L501.2450 #### [facility] [address] [place], [address] EST GFR - AA 66 mL/min Normal >60 [facility] Comment on above: Result Comment: Afri can [place] GFR Calc Performed By: #### L 500.4050, L501.2450 #### [facility] [address] [place], [address] GAP 7 Normal 5-15 [facility] Comment on above: Performed By: #### L 500.4050, L501.2450 #### [facility] [address] [place], [address] GFR/1.73 sq M.predicted among non-blacks MDRD (S/P/Bld) [Vol rate/Area] 55 mL/min/{1.73_m2} Low >60 [facility] Comment on above: Result Comment: Non- GFR Calc Performed By: #### L 500.4050, L501.2450 #### [facility] [address] [place], [address] Globulin (S) [Mass/Vol] 3.9 g/dL Normal 2.2-4.2 [facility] Comment on above: Performed By: #### L 500.4050, L501.2450 #### [facility] [address] [place], [address] Glucose [Mass/Vol] 123 mg/dL High 74-106 [facility] Comment on above: Result Comment: Fast ing Glucose result from 100 to 125 mg/dL suggests IMPAIRED HOMEOSTASIS per A.D.A. criteria. Performed By: #### L 500.4050, L501.2450 #### [facility] [address] [place], [address] Potassium [Moles/Vol] 3.8 mmol/L Normal 3.5-5.1 [facility] Comment on above: Performed By: #### L 500.4050, L501.2450 #### [facility] [address] [place], [address] Sodium [Moles/Vol] 139 mmol/L Normal 136-145 [facility] Comment on above: Performed By: #### L 500.4050, L501.2450 #### [facility] [address] [place], [address] T PROT 7.1 g/dL Normal 6.4-8.2 [facility] Comment on above: Performed By: #### L 500.4050, L501.2450 #### [facility] [address] [place], [address] Urea nitrogen [Mass/Vol] 19 mg/dL High 7-18 [facility] Comment on above: Performed By: #### L 500.4050, L501.2450 #### [facility] [address] [place], [address] Emergency Department Summary on 03-05-2024 Emergency Department Summary [facility] Medical Records Department [address] [place] [address] Emergency Department Summary 03/05/24 MR#: [id number] Acct: [id number] Name: CHEY WALKER Rep #: [id number] : 1955 68 From: Kiran Guy DO PCP: Dr. Annika Villasenor MD Status:REG ER Location: ED ADDENDUM by Dr. Mihir Zavaleta MD on 03/05/24 at 1017 It is also noted that mesenteric angina is in the differential diagnosis here especially given his elevated lactate and history of PAD. It is also noted that he just recently had CT angiography 2 weeks ago of his abdomen/pelvis that showed no acute occlusion and the patient had the same symptoms that he did tonight. Given that his pain is almost gone I do not think he needs a repeat CTA for this at this time. 03/05/24 1017 Cosigner Signature (if applicable): cc: Dr. Annika Villasenor MD * Signed ADDENDUM by Dr. Mihir Zavaleta MD on 03/05/24 at 1013 Took over care of this patient, who I personally saw for similar issues about 2 weeks ago. I reviewed the ultrasound images and the result which I agree with. It again is consistent with calculus cholecystitis. When I reevaluated the patient and he is having mild pain but is still present, with performing Rojo's sign he does have mild tenderness still. I discussed with surgery Dr. Waddell, with whom I spoke about this 2 weeks ago. He recommends admitting the patient is I recommended to the patient, and I did give him a dose of Zosyn here, however he notes that since the patient is on clopidogrel he will likely need to be off of it for for 5 days before undergoing surgery. In the meantime though, the patient would get antibiotics and probably a HIDA scan. I discussed all this with the patient, he understands that this will be a relatively extended hospital stay and he refuses to undergo that. He understands the risk of the unknown which is that if this is acute cholecystitis, he could get worse and become septic and . Despite this he understands, wants to go home and follow-up with the surgeon as an outpatient. He has the capacity to make this decision at this time, his sister here with him throughout these conversations. Signing out AGAINST MEDICAL ADVICE. 03/05/24 101 Cosigner Signature (if applicable): cc: Dr. Annika Villasenor MD * Signed HPI History of Present Illness Chief Complaint: Abd Pain Narrative Narrative: Chief complaint and HPI: Abdominal pain. 60-year-old male presents for evaluation of epigastric abdominal pain. Patient has a recurrent history of this and has been seen in our emergency department multiple times. Patient states that his abdominal pain started early this morning. He endorses nausea associated with it. He denies any fever, chills, shortness of breath, chest pain, diarrhea, constipation, dysuria. Has been eating and drinking well. He states this is the same reoccurring pain that he always has. It is not any different.Patient recently had a scope and pill endoscopy that was negative. On chart review, he was seen in our emergency department on 02/21 for similar complaints. At that time he had a CTA of the abdomen and pelvis. He has a saccular stable aneurysm at 4.7 cm. Pain improved and patient was discussed with surgery at that time. Recommendation was to follow-up for possible HIDA scan outpatient. Patient states that he has not had a HIDA scan. Review of systems: See HPI Medications: As listed on the chart Allergies: As listed on the chart PFSH: Per chart Vital signs: As listed on the chart. Reviewed. Physical exam: Gen: A O x3, NAD Head: Normocephalic, atraumatic Eyes: No sclera icterus, conjunctiva clear ENT: Moist mucous membranes Neck: Trachea midline, No JVD CV: RRR, no murmurs, no peripheral edema Resp: Lungs CTA BL, no w/r/c GI: Abd soft, non-distended, tender to palpation in the epigastrium and slightly in RUQ, negative Rojo sign, no rebound or rigidity Musc: Full ROM, no deformity Skin: Warm, dry Neuro: Alert, oriented, grossly intact, sensation intact Psych: Cooperative, appropriate mood and affect 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 Normal [facility] Lactic Acidon 03-05-2024 Lactate [Moles/Vol] 3.6 mmol/L Invalid Interpretation Code 0.4-1.9 [facility] Comment on above: Order Comment: Y Result Comment: Crit ical Result(s) Called at: 06:50:47 03/05/2024 by: LUKASZ TOVAR to Divina Sierra. Results read back by same. Performed By: #### L 500.4050, L501.2450 #### [facility] [address] [place], [address] Lipaseon 03-05-2024 Lipase [Catalytic activity/Vol] 52 U/L Normal 13-75 [facility] Comment on above: Result Comment: Luz nelson note: LIPASE revised reference range effective 22. New Lipase methodology. Expected to produce lower values than the previous assay method. NEW Reference Range: 13 - 75 U/L Performed By: #### L 500.4050, L501.2450 #### [facility] [address] [place], [address] Urinalysis, Completeon 03-05 BACTERIA 1+ /hpf Normal None Seen [facility] Comment on above: Order Comment: Y Performed By: #### L 503.6005 #### [facility] [address] [place], [address] CAST,HYALINE 0-5 SEEN Normal 0-5 [facility] Comment on above: Order Comment: Y Performed By: #### L 503.6005 #### [facility] [address] [place], [address] EPI,SQUAMOUS 0-5 SEEN Normal 0-5 [facility] Comment on above: Order Comment: Y Performed By: #### L 503.6005 #### [facility] [address] [place], [address] WBC 0-5 SEEN Normal 0-5 [facility] Comment on above: Order Comment: Y Performed By: #### L 503.6005 #### [facility] [address] [place], [address] Mucus Ql (Urine sed) 0 SEEN Normal [facility] Comment on above: Order Comment: Y Performed By: #### L 503.6005 #### [facility] [address] [place], [address] RBC 0 SEEN Normal 0-5 [facility] Comment on above: Order Comment: Y Performed By: #### L 503.6005 #### [facility] [address] [place], [address] CBC W/Diff, Automatedon 09-3 0-2024 Absolute Lymph 2.97 X10 3/uL Normal 0.83-4.51 [facility] Comment on above: Performed By: #### L 500.4050, L100.0100 ####[facility] [address] [place], [address] Absolute Neut 5.8 X10 3/uL Normal 2.0-7.7 [facility] Comment on above: Performed By: #### L 500.4050, L100.0100 ####[facility] [address] [place], [address] Basophils/100 WBC (Bld) 1.0 % Normal 0-1 [facility] Comment on above: Performed By: #### L 500.4050, L100.0100 ####[facility] [address] [place], [address] Eosinophils/100 WBC (Bld) 3.3 % Normal 0-5 [facility] Comment on above: Performed By: #### L 500.4050, L100.0100 ####[facility] [address] [place], [address] Erythrocyte distribution width (RBC) [Ratio] 14.6 % Normal 11.6-14.6 [facility] Comment on above: Performed By: #### L 500.4050, L100.0100 ####[facility] [address] [place], [address] Hematocrit (Bld) [Volume fraction] 44.4 % Normal 40-54 [facility] Comment on above: Performed By: #### L 500.4050, L100.0100 ####[facility] [address] [place], [address] Hemoglobin (Bld) [Mass/Vol] 13.9 g/dL Normal 13.0-16.5 [facility] Comment on above: Performed By: #### L 500.4050, L100.0100 ####[facility] [address] [place], [address] IG% 1.400 High 0.0-0.9 [facility] Comment on above: Result Comment: IG% - Immature Granulocytes (promyelocytes, myelocytes and metamyelocytes) > 1% indicates that a LEFT SHIFT is Present. Performed By: #### L 500.4050, L100.0100 ####[facility] [address] [place], [address] Lymphocytes/100 WBC (Bld) 29.6 % Normal 19-41 [facility] Comment on above: Performed By: #### L 500.4050, L100.0100 ####[facility] [address] [place], [address] MCH (RBC) [Entitic mass] 29.3 pg Normal 27.0-32.0 [facility] Comment on above: Performed By: #### L 500.4050, L100.0100 ####[facility] [address] [place], [address] MCHC (RBC) [Mass/Vol] 31.3 g/dL Low 32-36 [facility] Comment on above: Performed By: #### L 500.4050, L100.0100 ####[facility] [address] [place], [address] MCV (RBC) [Entitic vol] 93.5 fL Normal 80-94 [facility] Comment on above: Performed By: #### L 500.4050, L100.0100 ####[facility] [address] [place], [address] Monocytes/100 WBC (Bld) 6.7 % Normal 0-10 [facility] Comment on above: Performed By: #### L 500.4050, L100.0100 ####[facility] [address] [place], [address] Neutrophils/100 WBC (Bld) 58.0 % Normal 47-70 [facility] Comment on above: Performed By: #### L 500.4050, L100.0100 ####[facility] [address] [place], [address] Nucleated RBC (Bld) [#/Vol] 0 10*3/uL Normal 0-5 [facility] Comment on above: Performed By: #### L 500.4050, L100.0100 ####[facility] [address] [place], [address] Platelet mean volume (Bld) [Entitic vol] 9.6 fL Normal 6.2-12.0 [facility] Comment on above: Performed By: #### L 500.4050, L100.0100 ####[facility] [address] [place], [address] Platelets (Bld) [#/Vol] 293 10*3/uL Normal 150-450 [facility] Comment on above: Performed By: #### L 500.4050, L100.0100 ####[facility] [address] [place], [address] RBC (Bld) [#/Vol] 4.75 10*6/uL Normal 4.6-6.2 [facility] Comment on above: Performed By: #### L 500.4050, L100.0100 ####[facility] [address] [place], [address] RDW SD 50.7 fl High 35.1-43.9 [facility] Comment on above: Performed By: #### L 500.4050, L100.0100 ####[facility] [address] [place], [address] WBC (Bld) [#/Vol] 10.1 10*3/uL Normal 4.4-11.0 [facility] Comment on above: Performed By: #### L 500.4050, L100.0100 ####[facility] [address] [place], [address] Comprehensive Metabolic Prof ilon 02-29-2024 Albumin [Mass/Vol] 3.0 g/dL Low 3.2-5.0 [facility] Comment on above: Performed By: #### L 500.4050, L100.0100 ####[facility] [address] [place], [address] Albumin/Globulin [Mass ratio] 0.8 {ratio} Low 0.9-2.4 [facility] Comment on above: Performed By: #### L 500.4050, L100.0100 ####[facility] [address] [place], [address] ALK P 150 U/L High 45-117 [facility] Comment on above: Performed By: #### L 500.4050, L100.0100 ####[facility] [address] [place], [address] ALT [Catalytic activity/Vol] 14 U/L Low 16-61 [facility] Comment on above: Performed By: #### L 500.4050, L100.0100 ####[facility] [address] [place], [address] AST [Catalytic activity/Vol] 15 U/L Normal 15-37 [facility] Comment on above: Performed By: #### L 500.4050, L100.0100 ####[facility] [address] [place], [address] Bilirubin [Mass/Vol] 0.70 mg/dL Normal 0.20-1.00 [facility] Comment on above: Result Comment: For patients on eltrombopag therapy, use of Dimension [place] TBIL is not recommended. Performed By: #### L 500.4050, L100.0100 ####[facility] [address] [place], [address] BUN/CRE 8.7 RATIO Low 10-20 [facility] Comment on above: Performed By: #### L 500.4050, L100.0100 ####[facility] [address] [place], [address] CA,Total 8.7 mg/dL Normal 8.5-10.1 [facility] Comment on above: Performed By: #### L 500.4050, L100.0100 ####[facility] [address] [place], [address] Chloride [Moles/Vol] 108 mmol/L High 98-107 [facility] Comment on above: Performed By: #### L 500.4050, L100.0100 ####[facility] [address] [place], [address] CO2 [Moles/Vol] 24.0 mmol/L Normal 21.0-32.0 [facility] Comment on above: Performed By: #### L 500.4050, L100.0100 ####[facility] [address] [place], [address] Creatinine [Mass/Vol] 1.61 mg/dL High 0.70-1.30 [facility] Comment on above: Result Comment: The validity of the calculated GFR GFRAA in patients over 70 years has not been determined. Clinical correlation is essential. Performed By: #### L 500.4050, L100.0100 ####[facility] [address] [place], [address] EST GFR - AA 55 mL/min Low >60 [facility] Comment on above: Result Comment: Afri can [place]e GFR Calc Performed By: #### L 500.4050, L100.0100 ####[facility] [address] [place], [address] GAP 6 Normal 5-15 [facility] Comment on above: Performed By: #### L 500.4050, L100.0100 ####[facility] [address] [place], [address] GFR/1.73 sq M.predicted among non-blacks MDRD (S/P/Bld) [Vol rate/Area] 46 mL/min/{1.73_m2} Low >60 [facility] Comment on above: Result Comment: Non- GFR Calc Performed By: #### L 500.4050, L100.0100 ####[facility] [address] [place], [address] Globulin (S) [Mass/Vol] 4.0 g/dL Normal 2.2-4.2 [facility] Comment on above: Performed By: #### L 500.4050, L100.0100 ####[facility] [address] [place], [address] Glucose [Mass/Vol] 166 mg/dL High 74-106 [facility] Comment on above: Result Comment: Fast ing Glucose result greater than or equal to 126 mg/dL suggests DIABETES MELLITUS per A.D.A. criteria. Performed By: #### L 500.4050, L100.0100 ####[facility] [address] [place], [address] Potassium [Moles/Vol] 4.4 mmol/L Normal 3.5-5.1 [facility] Comment on above: Performed By: #### L 500.4050, L100.0100 ####[facility] [address] [place], [address] Sodium [Moles/Vol] 138 mmol/L Normal 136-145 [facility] Comment on above: Performed By: #### L 500.4050, L100.0100 ####[facility] [address] [place], [address] T PROT 7.0 g/dL Normal 6.4-8.2 [facility] Comment on above: Performed By: #### L 500.4050, L100.0100 ####[facility] [address] [place], [address] Urea nitrogen [Mass/Vol] 14 mg/dL Normal 7-18 [facility] Comment on above: Performed By: #### L 500.4050, L100.0100 ####[facility] [address] [place], [address] CBC W/Diff, Automatedon 09-2 3-2023 Absolute Lymph 2.95 X10 3/uL Normal 0.83-4.51 [facility] Comment on above: Performed By: #### L 503.6005 #### [facility] [address] [place], [address] Absolute Neut 7.4 X10 3/uL Normal 2.0-7.7 [facility] Comment on above: Performed By: #### L 503.6005 #### [facility] [address] [place], [address] Basophils/100 WBC (Bld) 1.0 % Normal 0-1 [facility] Comment on above: Performed By: #### L 503.6005 #### [facility] [address] [place], [address] Eosinophils/100 WBC (Bld) 2.1 % Normal 0-5 [facility] Comment on above: Performed By: #### L 503.6005 #### [facility] [address] [place], [address] Erythrocyte distribution width (RBC) [Ratio] 14.9 % High 11.6-14.6 [facility] Comment on above: Performed By: #### L 503.6005 #### [facility] [address] [place], [address] Hematocrit (Bld) [Volume fraction] 44.6 % Normal 40-54 [facility] Comment on above: Performed By: #### L 503.6005 #### [facility] [address] [place], [address] Hemoglobin (Bld) [Mass/Vol] 14.0 g/dL Normal 13.0-16.5 [facility] Comment on above: Performed By: #### L 503.6005 #### [facility] [address] [place], [address] IG% 1.800 High 0.0-0.9 [facility] Comment on above: Result Comment: IG% - Immature Granulocytes (promyelocytes, myelocytes and metamyelocytes) > 1% indicates that a LEFT SHIFT is Present. Performed By: #### L 503.6005 #### [facility] [address] [place], [address] Lymphocytes/100 WBC (Bld) 25.3 % Normal 19-41 [facility] Comment on above: Performed By: #### L 503.6005 #### [facility] [address] [place], [address] MCH (RBC) [Entitic mass] 29.2 pg Normal 27.0-32.0 [facility] Comment on above: Performed By: #### L 503.6005 #### [facility] [address] [place], [address] MCHC (RBC) [Mass/Vol] 31.4 g/dL Low 32-36 [facility] Comment on above: Performed By: #### L 503.6005 #### [facility] [address] [place], [address] MCV (RBC) [Entitic vol] 93.1 fL Normal 80-94 [facility] Comment on above: Performed By: #### L 503.6005 #### [facility] [address] [place], [address] Monocytes/100 WBC (Bld) 5.8 % Normal 0-10 [facility] Comment on above: Performed By: #### L 503.6005 #### [facility] [address] [place], [address] Neutrophils/100 WBC (Bld) 64.0 % Normal 47-70 [facility] Comment on above: Performed By: #### L 503.6005 #### [facility] [address] [place], [address] Nucleated RBC (Bld) [#/Vol] 0 10*3/uL Normal 0-5 [facility] Comment on above: Performed By: #### L 503.6005 #### [facility] [address] [place], [address] Platelet mean volume (Bld) [Entitic vol] 9.8 fL Normal 6.2-12.0 [facility] Comment on above: Performed By: #### L 503.6005 #### [facility] [address] [place], [address] Platelets (Bld) [#/Vol] 292 10*3/uL Normal 150-450 [facility] Comment on above: Performed By: #### L 503.6005 #### [facility] [address] [place], [address] RBC (Bld) [#/Vol] 4.79 10*6/uL Normal 4.6-6.2 [facility] Comment on above: Performed By: #### L 503.6005 #### [facility] [address] [place], [address] RDW SD 50.5 fl High 35.1-43.9 [facility] Comment on above: Performed By: #### L 503.6005 #### [facility] [address] [place], [address] WBC (Bld) [#/Vol] 11.6 10*3/uL High 4.4-11.0 [facility] Comment on above: Performed By: #### L 503.6005 #### [facility] [address] [place], [address] CTA Abd/Pelvis W/WO Contrast on 02-22-2024 CTA Abd/Pelvis W/WO Contrast [facility] [address] [place] [address] CTA Abd/Pelvis W/WO Contrast MR#: [id number] Acct: [id number] Name: CHEY WALKER Rep #: [id number] : 1955 M 68 From: Andrés Raphael MD PCP: Dr. Annika Villasenor MD Status: [facility] ER Study: CTA Abd/Pelvis W/WO Contrast Date of Exam: Exam# [id number] Ordering Dr: Mihir Zavaleta MD [id number] EXAM: CT ANGIOGRAPHY ABDOMEN AND PELVIS WITHOUT AND WITH INTRAVENOUS CONTRAST CLINICAL INDICATION: epigastric pain, AAA TECHNIQUE: Helically acquired angiography images were obtained of the abdomen and pelvis without and with intravenous contrast. This CT exam was performed using one or more of the following dose reduction techniques: automated exposure control, adjustment of the mA and/or kV according to patient size, and/or use of iterative reconstruction technique. MIP reconstructed images were created and reviewed. CONTRAST: IV 100mL Isovue-370 COMPARISON: CTA Abdomen Pelvis dated 12/15/2023 FINDINGS: VASCULATURE: AORTA: Stable 4.7 cm saccular infrarenal abdominal aortic aneurysm arises from the inferior most aspect of the aortic stent graft. 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 The distal aortobiiliac graft is patent. No dissection. CELIAC TRUNK AND MESENTERIC ARTERIES: Patent celiac and superior mesenteric arteries. Occlusion of the KADY again noted. RENAL ARTERIES: No acute findings. No occlusion or significant stenosis. No dissection. ILIAC ARTERIES: Bilateral iliac artery stents remain patent. No occlusion or significant stenosis. LOWER THORAX: Centrilobular emphysematous changes of the lung bases noted as well as interstitial thickening which may represent edema or fibrosis. No cardiomegaly. No significant pericardial effusion. ABDOMEN: LIVER: Normal. Homogeneous. No focal mass. GALLBLADDER AND BILE DUCTS: Pericholecystic fluid raises possibility of acute cholecystitis. Small calcified stones again noted within the gallbladder. PANCREAS: Normal. No focal cystic or solid mass. SPLEEN: Normal. Normal size without focal cystic or solid mass. ADRENALS: Normal. No nodules. KIDNEYS AND URETERS: Kidneys within the range of normal size with element of diffuse cortical thinning. No hydronephrosis. Normal renal size and position. STOMACH AND BOWEL: Mild stool burden within the large bowel. No focal inflammatory change. PELVIS: APPENDIX: Appendix is visualized and normal in appearance. BLADDER: Normal. REPRODUCTIVE: Unremarkable as visualized. No mass. ABDOMEN and PELVIS: INTRAPERITONEAL SPACE: Normal. No ascites or other fluid collection. No free air. BONES/JOINTS: No suspicious lytic or blastic abnormality. SOFT TISSUES: Stable small cystic appearing subcutaneous lesion again seen within the midline adjacent to the xiphoid process. No discrete abdominal or pelvic wall hernia. LYMPH NODES: Normal. No enlarged lymph nodes. CT/CTA Abd/Pelvis W/WO Contrast IMPRESSION: 1. Pericholecystic fluid suggestive of acute cholecystitis associated with small calcified gallstones. 2. Stable 4.7 cm saccular aneurysm of the infrarenal abdominal aorta. Electronically Signed: Andrés Raphael MD at 8:23 EDT , CC: Dr. Mihir Zavaleta MD; Dr. Annika Villasenor MD Senior Oracle Database Administrator: Signed Normal [facility] Comprehensive Metabolic Prof ilon 02-22-2024 Albumin [Mass/Vol] 3.0 g/dL Low 3.2-5.0 [facility] Comment on above: Performed By: #### L 400.0001 #### [facility] [address] [place], [address] Albumin/Globulin [Mass ratio] 0.8 {ratio} Low 0.9-2.4 [facility] Comment on above: Performed By: #### L 400.0001 #### [facility] [address] [place], [address] ALK P 132 U/L High 45-117 [facility] Comment on above: Performed By: #### L 400.0001 #### [facility] [address] [place], [address] ALT [Catalytic activity/Vol] 14 U/L Low 16-61 [facility] Comment on above: Performed By: #### L 400.0001 #### [facility] [address] [place], [address] AST [Catalytic activity/Vol] 18 U/L Normal 15-37 [facility] Comment on above: Performed By: #### L 400.0001 #### [facility] [address] [place], [address] Bilirubin [Mass/Vol] 0.60 mg/dL Normal 0.20-1.00 [facility] Comment on above: Result Comment: For patients on eltrombopag therapy, use of Dimension [place] TBIL is not recommended. Performed By: #### L 400.0001 #### [facility] [address] [place], [address] BUN/CRE 8.8 RATIO Low 10-20 [facility] Comment on above: Performed By: #### L 400.0001 #### [facility] [address] [place], [address] CA,Total 8.5 mg/dL Normal 8.5-10.1 [facility] Comment on above: Performed By: #### L 400.0001 #### [facility] [address] [place], [address] Chloride [Moles/Vol] 108 mmol/L High 98-107 [facility] Comment on above: Performed By: #### L 400.0001 #### [facility] [address] [place], [address] CO2 [Moles/Vol] 22.0 mmol/L Normal 21.0-32.0 [facility] Comment on above: Performed By: #### L 400.0001 #### [facility] [address] [place], [address] Creatinine [Mass/Vol] 1.37 mg/dL High 0.70-1.30 [facility] Comment on above: Result Comment: The validity of the calculated GFR GFRAA in patients over 70 years has not been determined. Clinical correlation is essential. Performed By: #### L 400.0001 #### [facility] [address] [place], [address] ECRCL 60.53 ml/min Normal [facility] Comment on above: Performed By: #### L 400.0001 #### [facility] [address] [place], [address] EST GFR - AA 66 mL/min Normal >60 [facility] Comment on above: Result Comment: Afri can [place]e GFR Calc Performed By: #### L 400.0001 #### [facility] [address] [place], [address] GAP 9 Normal 5-15 [facility] Comment on above: Performed By: #### L 400.0001 #### [facility] [address] [place], [address] GFR/1.73 sq M.predicted among non-blacks MDRD (S/P/Bld) [Vol rate/Area] 55 mL/min/{1.73_m2} Low >60 [facility] Comment on above: Result Comment: Non- GFR Calc Performed By: #### L 400.0001 #### [facility] [address] [place], [address] Globulin (S) [Mass/Vol] 3.9 g/dL Normal 2.2-4.2 [facility] Comment on above: Performed By: #### L 400.0001 #### [facility] [address] [place], [address] Glucose [Mass/Vol] 125 mg/dL High 74-106 [facility] Comment on above: Result Comment: Fast ing Glucose result from 100 to 125 mg/dL suggests IMPAIRED HOMEOSTASIS per A.D.A. criteria. Performed By: #### L 400.0001 #### [facility] [address] [place], [address] Potassium [Moles/Vol] 4.4 mmol/L Normal 3.5-5.1 [facility] Comment on above: Performed By: #### L 400.0001 #### [facility] [address] [place], [address] Sodium [Moles/Vol] 139 mmol/L Normal 136-145 [facility] Comment on above: Performed By: #### L 400.0001 #### [facility] [address] [place], [address] T PROT 6.9 g/dL Normal 6.4-8.2 [facility] Comment on above: Performed By: #### L 400.0001 #### [facility] [address] [place], [address] Urea nitrogen [Mass/Vol] 12 mg/dL Normal 7-18 [facility] [place] [facility] Comment on above: Performed By: #### L 400.0001 #### [facility] [address] [place], [address] Emergency Department Summary on 02-22-2024 Emergency Department Summary [facility] Medical Records Department [address] [place] [address] Emergency Department Summary 02/22/24 MR#: [id number] Acct: [id number] Name: CHEY WALKER Rep #: [id number] : 1955 68 From: Mihir Zavaleta MD PCP: Dr. Annika Villasenor MD Status:REG ER Location: ED HPI HPI - GI History of Present Illness Chief Complaint: Abd Pain Informant: patient Abdominal Pain/Flank Pain Onset: Hours (5) Context: Gradual Onset Timing: Continuous Quality: Aching Location: Epigastric Current Severity: Severe Maximum Severity: Severe Worsened by: Nothing Relieved by: Nothing Nausea/Vomiting/Emesis GI Symptom: Positive for Nausea and Vomiting Quality: Positive for Nonbilious; Negative for Blood streaks or Coffee ground Episodes: 1 Diarrhea/Melena/Hematoch ezia GI Symptom: Negative for Diarrhea, Melena or Hematochezia Associated Symptoms Associated Symptoms: Negative for Dysuria, Frequency or Hematuria Narrative Narrative: 60-year-old male presenting with midepigastric pain without radiation. Subsided with vomiting. Started about 1:30 in the morning. States he has had this before and no one could give him a definitive answer. He has had a scope and a pill endoscopy that were negative. States every couple months he seems to get this, seems to last until he gets a shot for pain and then goes away and comes back months later. He has had aortic bypass and CABG in the past. He denies any other new symptoms. No melena or bright red blood per rectum or trouble urinating. Pain does not radiate into the back or the chest. 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 Hyperlipidemia Cardiomyopathy PAD (peripheral artery disease) CAD in [place] artery NSTEMI (non-ST elevated myocardial infarction) Essential hypertension Heart disease Arthritis HTN (hypertension) Home Medications ???Medication ???Instructions ???Recorded ???Last Taken ???Type clopidogrel 75 mg tablet (Plavix) 75 mg PO QDAY 07/24/17 10/31/23 History aspirin 81 mg tablet,delayed 81 mg PO DAILY@0800 01/30/19 10/31/23 History release atorvastatin 80 mg tablet 80 mg PO QHS 02/16/19 10/30/23 History metoprolol tartrate 25 mg tablet 25 mg PO BID #180 tabs 02/25/19 10/31/23 Rx lisinopril 5 mg tablet 5 mg PO QHS blood pressure 08/08/19 10/30/23 History nitroglycerin 0.4 mg sublingual 0.4 mg sublingual Q5-15M PRN Pain, 08/08/19 Unknown History tablet Mild pantoprazole 40 mg tablet,delayed 40 mg PO DAILY GERD 03/31/21 10/31/23 History release ondansetron 4 mg disintegrating 4 mg PO Q8H PRN PRN Nausea #20 tabs 10/31/23 Unknown Rx tablet omeprazole 40 mg capsule,delayed 40 mg PO DAILY #30 caps 12/15/23 Unknown Rx release hydroxychloroquine 200 mg tablet 200 mg PO BID 02/22/24 Unknown History Allergy/AdvReac Type Severity Reaction Status Date / Time Sulfa (Sulfonamide Allergy Other Verified 12/15/23 15:30 Antibiotics) Family History Father CAD (coronary artery disease) Mother Cancer CAD (coronary artery disease) Surgical History Presence of coronary angioplasty implant and graft ( 06/08/19) History of coronary artery bypass surgery ( 2000) Abdominal aortic aneurysm without rupture S/P PTCA (percutaneous transluminal coronary angioplasty) History of open heart surgery History of kbsiu-hddzt-fbxppiy bypass Social History Smoking Status: Current some day smoker tobacco type: cigarettes alcohol intake: current alcohol intake frequency: a few times a week Alcohol type: beer and hard liquor substance use type: does not use ROS ROS ED Constitutional Constitutional ED: Denies chills or fever(s) Eyes Eyes: Denies change in vision or diplopia ENT ENT ED: Denies rhinorrhea or sore throat Cardiovascular Cardiovascular: Denies chest pain or palpitations Respiratory/Chest Respiratory/Chest: Denies cough or dyspnea Gastrointestinal Gastrointestinal: Reports abdominal pain, nausea and vomiting; Denies diarrhea Genitourinary Genitourinary ED: Denies dysuria or hematuria Musculoskeletal Musculoskeletal: Denies back pain or neck pain Integumentary Denies abscess or rash Neurologic Neurologic: Denies headache(s), paresthesias or weakness Psychiatric Psychiatric: Denies anxiety or suicidal thoughts EXAM Physical Exam Const Vital Signs: 02/22/24 05:50 02/22/24 05:53 02/22/24 07: (more content not included)... Normal [facility] Lactic Acidon 02-22-2024 Lactate [Moles/Vol] 2.6 mmol/L Invalid Interpretation Code 0.4-1.9 [facility] Comment on above: Order Comment: CLEAN CATCH Result Comment: Crit ical Result(s) Called at: 07:02:30 02/22/2024 by: Shannan Berger to Eunice. Results read back by same. Performed By: #### L 400.0001 #### [facility] [address] [place], [address] Lipaseon 02-22-2024 Lipase [Catalytic activity/Vol] 48 U/L Normal 13-75 [facility] Comment on above: Result Comment: Plea se note: LIPASE revised reference range effective 22. New Lipase methodology. Expected to produce lower values than the previous assay method. NEW Reference Range: 13 - 75 U/L Performed By: #### L 400.0001 #### [facility] [address] [place], [address] Ankle min 3 Viewson 01-13-20 24 Ankle min 3 Views [facility] [address] [place] [address] Ankle min 3 Views MR#: [id number] Acct: [id number] Name: CHEY WALKER KAMRAN Rep #: [id number] : 1955 M 68 From: Juan Miguel Gillespie MD PCP: Dr. Annika Villasenor MD Status: DEP AMB Study: Ankle min 3 Views Date of Exam: 01/13/24 Exam# [id number] Ordering Dr: Adriana Fagan DPM [id number] EXAM: XR LEFT ANKLE COMPLETE, 3 OR MORE VIEWS CLINICAL INDICATION: ANKLE PAIN TECHNIQUE: Frontal, lateral and oblique views of the left ankle. COMPARISON: No relevant prior studies available. FINDINGS: BONES/JOINTS: Unremarkable. No acute fracture. No subluxation. Normal alignment. Preservation of the joint space. No sclerotic or destructive changes observed. SOFT TISSUES: There is mild soft tissue swelling over the medial and lateral malleoli. No radiopaque foreign body. RAD/Ankle min 3 Views IMPRESSION: Mild soft tissue swelling with no osseous abnormality. Electronically Signed: [place] Miguel Gillespie MD at 0:04 EDT , CC: DPJoanne Fagan; Dr. Annika Villasenor MD Senior Oracle Database Administrator: Signed Normal [facility] ANTINUCLEAR ANTIBODIES DIREC Ton 01-09-2024 KELLY,DIRECT Negative Normal Negative [facility] Comment on above: Result Comment: Perf ormed at: [facility] [id number] Assembly Detailer: Alexei Dickson PhD, Phone: [phone] Performed By: #### L 500.2700, Z877.9855 #### [facility] [address] [facility] [place], [address] CCP IgG Antibodieson 024 CCP IgG Ab. > 250 High 0-19 [facility] Comment on above: Result Comment: Nega tive <20 Weak positive 20 - 39 Moderate positive 40 - 59 Strong positive >59 Performed at: [facility] [id number] Assembly Detailer: Alexei Dickson PhD, Phone: [phone] Performed By: #### L 500.4050, L501.2450 #### [facility] [address] [place], [address] Quantiferon TB-Gold+on 01-08 QFT MITOGEN ROBBY > 10.00 Normal . [facility] Comment on above: Performed By: #### L 500.4050, L501.2450 #### [facility] [address] [place], [address] QFT NIL VALUE 0.01 IU/mL Normal . [facility] Comment on above: Performed By: #### L 500.4050, L501.2450 #### [facility] [address] [place], [address] QFT TB GOLD+ Comment Normal . [facility] Comment on above: Result Comment: Michael tiFERON-TB Gold Plus is a qualitative indirect test for M tuberculosis infection (including disease) and is intended for use in conjunction with risk assessment, radiography, and other medical and diagnostic evaluations. The QuantiFERON-TB Gold Plus result is determined by subtracting the Nil value from either TB antigen (Ag) value. The Mitogen tube serves as a control for the test. Performed By: #### L 500.4050, L501.2450 #### [facility] [address] [place], [address] QFT TB POS CRIT Negative Normal Negative [facility] Comment on above: Result Comment: No r esponse to M tuberculosis antigens detected. Infection with M tuberculosis is unlikely, but high risk individuals should be considered for additional testing (ATS/IDSA/CDC Clinical Practice Guidelines, 2017). The reference range is an Antigen minus Nil result of <0.35 IU/mL. The specimen received for QuantiFERON testing was incubated by the ordering institution. Specific procedures outlined in our Directory of Services and in the package insert for the QuantiFERON Gold (In Tube) test must be followed to enable for proper stimulation of cells for the production of interferon gamma. Chemiluminescence immunoassay methodology Performed By: #### L 500.4050, L501.2450 #### [facility] [address] [place], [address] QFT TB1+ AG ROBBY 0.02 IU/mL Normal . [facility] Comment on above: Performed By: #### L 500.4050, L501.2450 #### [facility] [address] [place], [address] QFT TB2+ AG ROBBY 0.01 IU/mL Normal . [facility] Comment on above: Performed By: #### L 500.4050, L501.2450 #### [facility] [address] [place], [address] CBC W/Diff, Automatedon 08-0 7-2024 Absolute Lymph 3.56 X10 3/uL Normal 0.83-4.51 [facility] Comment on above: Performed By: #### L 400.0001 #### [facility] [address] [place], [address] Absolute Neut 6.4 X10 3/uL Normal 2.0-7.7 [facility] Comment on above: Performed By: #### L 400.0001 #### [facility] [address] [place], [address] Basophils/100 WBC (Bld) 0.9 % Normal 0-1 [facility] Comment on above: Performed By: #### L 400.0001 #### [facility] [address] [place], [address] Eosinophils/100 WBC (Bld) 3.9 % Normal 0-5 [facility] Comment on above: Performed By: #### L 400.0001 #### [facility] [address] [place], [address] Erythrocyte distribution width (RBC) [Ratio] 14.1 % Normal 11.6-14.6 [facility] Comment on above: Performed By: #### L 400.0001 #### [facility] [address] [place], [address] Hematocrit (Bld) [Volume fraction] 44.6 % Normal 40-54 [facility] Comment on above: Performed By: #### L 400.0001 #### [facility] [address] [place], [address] Hemoglobin (Bld) [Mass/Vol] 13.8 g/dL Normal 13.0-16.5 [facility] Comment on above: Performed By: #### L 400.0001 #### [facility] [address] [place], [address] IG% 1.300 High 0.0-0.9 [facility] Comment on above: Result Comment: IG% - Immature Granulocytes (promyelocytes, myelocytes and metamyelocytes) > 1% indicates that a LEFT SHIFT is Present. Performed By: #### L 400.0001 #### [facility] [address] [place], [address] Lymphocytes/100 WBC (Bld) 31.9 % Normal 19-41 [facility] Comment on above: Performed By: #### L 400.0001 #### [facility] [address] [place], [address] MCH (RBC) [Entitic mass] 29.1 pg Normal 27.0-32.0 [facility] Comment on above: Performed By: #### L 400.0001 #### [facility] [address] [place], [address] MCHC (RBC) [Mass/Vol] 30.9 g/dL Low 32-36 [facility] Comment on above: Performed By: #### L 400.0001 #### [facility] [address] [place], [address] MCV (RBC) [Entitic vol] 94.1 fL High 80-94 [facility] Comment on above: Performed By: #### L 400.0001 #### [facility] [address] [place], [address] Monocytes/100 WBC (Bld) 4.9 % Normal 0-10 [facility] Comment on above: Performed By: #### L 400.0001 #### [facility] [address] [place], [address] Neutrophils/100 WBC (Bld) 57.1 % Normal 47-70 [facility] Comment on above: Performed By: #### L 400.0001 #### [facility] [address] [place], [address] Nucleated RBC (Bld) [#/Vol] 0 10*3/uL Normal 0-5 [facility] Comment on above: Performed By: #### L 400.0001 #### [facility] [address] [place], [address] Platelet mean volume (Bld) [Entitic vol] 9.7 fL Normal 6.2-12.0 [facility] Comment on above: Performed By: #### L 400.0001 #### [facility] [address] [place], [address] Platelets (Bld) [#/Vol] 391 10*3/uL Normal 150-450 [facility] Comment on above: Performed By: #### L 400.0001 #### [facility] [address] [place], [address] RBC (Bld) [#/Vol] 4.74 10*6/uL Normal 4.6-6.2 [facility] Comment on above: Performed By: #### L 400.0001 #### [facility] [address] [place], [address] RDW SD 48.8 fl High 35.1-43.9 [facility] Comment on above: Performed By: #### L 400.0001 #### [facility] [address] [place], [address] WBC (Bld) [#/Vol] 11.2 10*3/uL High 4.4-11.0 [facility] Comment on above: Performed By: #### L 400.0001 #### [facility] [address] [place], [address] CRPon 01-06-2024 C-REACTIVE PROT 23.00 mg/L High 0.0-3.0 [facility] Comment on above: Result Comment: C-Re active Protein (CRP) provides useful information for the diagnosis, therapy and monitoring of inflammatory processes and associated diseases. For the evaluation of Relative Risk for Cardiovascular Disease, a High Sensitivity CRP (HSCRP) should be ordered. Performed By: #### L 400.0001 #### [facility] [address] [place], [address] Chest PA and Lateralon 01-05 Chest PA and Lateral [facility] [address] [facility] [place] [address] Chest PA and Lateral MR#: [id number] Acct: [id number] Name: CHEY WALKER Rep #: [id number] : 1955 M 68 From: Merly Vega MD PCP: Dr. Annika Villasenor MD Status: [facility] CLI Study: Chest PA and Lateral Date of Exam: 01/06/24 Exam# [id number] Ordering Dr: Layla Singer MD [id number] STUDY: X-RAY CHEST REASON FOR EXAM: Male, 68 years old. Long-term drug therapy. TECHNIQUE: Frontal and lateral views of the chest on 3 images. COMPARISON: July 04, 2019 FINDINGS: Mild hyperinflation with scattered interstitial prominence unchanged. There is no demonstrated pleural abnormality. Mild cardiomegaly with sternotomy wires unchanged. Normal mediastinum and chad. Normal visualized pulmonary arteries. Normal visualized aortic arch and descending thoracic aorta. Normal visualized thoracic spine. Normal visualized ribs, clavicles, and shoulders. No abnormality of the visualized soft tissue structures of the upper abdomen. RAD/Chest PA and Lateral IMPRESSION: Stable chest with no acute or active cardiopulmonary disease. Electronically Signed: Merly Vega MD at 15:42 EDT , CC: Dr. Annika Villasenor MD; Dr. Layla Singer MD Senior Oracle Database Administrator: Signed Normal [facility] Metabolic Prof vaon 01-06-2024 Albumin [Mass/Vol] 3.0 g/dL Low 3.2-5.0 [facility] Comment on above: Performed By: #### L 400.0001 #### [facility] [address] [facility] [place], [address] Albumin/Globulin [Mass ratio] 0.7 {ratio} Low 0.9-2.4 [facility] Comment on above: Performed By: #### L 400.0001 #### [facility] [address] [place], [address] ALK P 185 U/L High 45-117 [facility] Comment on above: Performed By: #### L 400.0001 #### [facility] [address] [facility] [place], [address] ALT [Catalytic activity/Vol] 23 U/L Normal 16-61 [facility] Comment on above: Performed By: #### L 400.0001 #### [facility] [address] [place], [address] AST [Catalytic activity/Vol] 17 U/L Normal 15-37 [facility] Comment on above: Performed By: #### L 400.0001 #### [facility] [address] [place], [address] Bilirubin [Mass/Vol] 0.70 mg/dL Normal 0.20-1.00 [facility] Comment on above: Result Comment: For patients on eltrombopag therapy, use of Dimension [place] TBIL is not recommended. Performed By: #### L 400.0001 #### [facility] [address] [place], [address] BUN/CRE 8.9 RATIO Low 10-20 [facility] Comment on above: Performed By: #### L 400.0001 #### [facility] [address] [place], [address] CA,Total 8.6 mg/dL Normal 8.5-10.1 [facility] Comment on above: Performed By: #### L 400.0001 #### [facility] [address] [place], [address] Chloride [Moles/Vol] 110 mmol/L High 98-107 [facility] Comment on above: Performed By: #### L 400.0001 #### [facility] [address] [place], [address] CO2 [Moles/Vol] 24.0 mmol/L Normal 21.0-32.0 [facility] Comment on above: Performed By: #### L 400.0001 #### [facility] [address] [place], [address] Creatinine [Mass/Vol] 1.46 mg/dL High 0.70-1.30 [facility] Comment on above: Result Comment: The validity of the calculated GFR GFRAA in patients over 70 years has not been determined. Clinical correlation is essential. Performed By: #### L 400.0001 #### [facility] [address] [place], [address] EST GFR - AA 62 mL/min Normal >60 [facility] Comment on above: Result Comment: Afri can [place]e GFR Calc Performed By: #### L 400.0001 #### [facility] [address] [place], [address] GAP 5 Normal 5-15 [facility] Comment on above: Performed By: #### L 400.0001 #### [facility] [address] [place], [address] GFR/1.73 sq M.predicted among non-blacks MDRD (S/P/Bld) [Vol rate/Area] 51 mL/min/{1.73_m2} Low >60 [facility] Comment on above: Result Comment: Non- GFR Calc Performed By: #### L 400.0001 #### [facility] [address] [place], [address] Globulin (S) [Mass/Vol] 4.6 g/dL High 2.2-4.2 [facility] Comment on above: Performed By: #### L 400.0001 #### [facility] [address] [place], [address] Glucose [Mass/Vol] 101 mg/dL Normal 74-106 [facility] Comment on above: Result Comment: Fast ing Glucose result from 100 to 125 mg/dL suggests IMPAIRED HOMEOSTASIS per A.D.A. criteria. Performed By: #### L 400.0001 #### [facility] [address] [place], [address] Potassium [Moles/Vol] 4.5 mmol/L Normal 3.5-5.1 [facility] Comment on above: Performed By: #### L 400.0001 #### [facility] [address] [place], [address] Sodium [Moles/Vol] 139 mmol/L Normal 136-145 [facility] Comment on above: Performed By: #### L 400.0001 #### [facility] [address] [place], [address] T PROT 7.6 g/dL Normal 6.4-8.2 [facility] Comment on above: Performed By: #### L 400.0001 #### [facility] [address] [place], [address] Urea nitrogen [Mass/Vol] 13 mg/dL Normal 7-18 [facility] Comment on above: Performed By: #### L 400.0001 #### [facility] [address] [place], [address] Erythrocyte Sed Rateon 01-05 SED RATE 43 mm/hr High 0-20 [facility] Comment on above: Performed By: #### L 400.0001 #### [facility] [address] [facility] [address] Hepatitis B Surface Antibody on 01-06-2024 HEP B Surf Ab Non-Reactive Normal [facility] Comment on above: Result Comment: Non Reactive: Inconsistent with immunity less than <10 mIU/mL Reactive: Consistent with immunity greater than or equal to 10 mIU/mL Performed By: #### L 400.0001 #### [facility] [address] [place], [address] Hepatitis B Surface Antigeno n 01-06-2024 HEP B Surf Ag Non-Reactive Normal Nonreactive [facility] Comment on above: Performed By: #### L 400.0001 #### [facility] [address] [place], [address] Hepatitis C Antibodyon 01-05 Hepatitis C AB Non-Reactive Normal Nonreactive [facility] Comment on above: Result Comment: Non Reactive: < 0.8 Equivocal: >/= 0.8 to < 1.0 Reactive: >/= 1.0 The [facility] requires that a reactive/equivocal HCV antibody result be sent out for confirmation. HCV Quant by PCR testing. Performed By: #### L 500.4050, L501.2450 #### [facility] [address] [place], [place], [address] Rheumatoid Factoron 01-06-20 24 RHEUMATOID FAC 1300.0 IU/mL High <15 [facility] Comment on above: Performed By: #### L 400.0001 #### [facility] [address] [place], [place], [address] CNOVon 12-21-2023 CNOV Office Visit (CAWSTR ) -------- CHEY WALKER ([id number]) 1955 Date Time Provider Department 12/21/23 11:20 AM BRENDA MARIN DEWS During your visit today, we recorded the following information about you: Pulse Blood pressure Weight Height 64/minute 141/69 85.5 kg 1.778 m Brenda Marin MD 12/21/2023 11:26 AM Signed Brenda Marin MD Interventional Cardiology [address] [place], [place] [address] [id number] Chief Complaint Patient presents with: Follow Up HISTORY OF PRESENT ILLNESS: Mr. Walker is a 68 year old male seen my office today for follow-up patient had prior history of severe three-vessel coronary artery disease with peripheral vascular disease underwent endovascular grafting for infrarenal abdominal aneurysm with bypass surgery consisted of a ARCE to the LAD with a vein graft to the posterolateral branch of the right and a vein graft to the PDA most recently in 2020 had angioplasty of the LAD and the diagonal and the circumflex after he had non-STEMI elevation NH doing well asymptomatic denies chest pain or shortness of breath Patient is limited because of symptoms related to rheumatoid arthritis Cardiac Risk Factors age (male over 45, female over 55), hyperlipidemia, history of smoking, hypertension, family history of CAD PAST MEDICAL HISTORY Diagnosis Date AAA (abdominal aortic aneurysm) ([facility]) s/p repair Arthritis CAD (coronary artery disease) Cardiomyopathy ([facility]) Heart attack ([facility]) x3 HTN (hypertension) NSTEMI (non-ST elevated myocardial infarction) ([facility]) 01/30/2019 2 prior NH's PAD (peripheral artery disease) ([facility]) PAST SURGICAL HISTORY Procedure Laterality Date CORONARY ARTERY BYPASS GRAFT x3 DIR RPR ANEURYSM ABDOMINAL AORTA 1994 FAMILY HISTORY Problem Relation Age of Onset Rheumatologic disease Mother Ischemic Heart Disease Father dided from [place] age 60 other (vascular disease) Father Arthritis Sister Arthritis Sister Social History Tobacco Use Smoking status: Former Years: 30 Types: Cigarettes Quit date: 01/30/2019 Years since [...] Take 75 mg by mouth once daily. No current facility-administered medications for this visit. Review of Systems Constitutional: Negative for chills, [...] does not have insomnia. Physical Examination: Vitals:BP 141/69 Pulse 64 Ht 5' 10 (1.78m) Wt 188 lb 6.4 oz (85.5kg) SpO2 93% BMI 27.03 kg/(m2). BP w/Orthostatic Vitals Date and Time Orthostatic BP Orthostatic Pulse BP Pulse BP Position BP Site BP Cuff Size 12/21/23 11 (more content not included)... Normal [facility] 12 Lead EKGon 12-15-2023 12 Lead EKG [facility] [address] [place] [address] 12 Lead EKG 12/15/23 1639 MR#: [id number] Acct: [id number] Name: CHEY WALKER Rep #: [id number] : 1955 68 From: Michelle Arteaga MD Attending Dr: Status: DEP ER Ordering Dr: Nomi Garcia DO Date: 12/15/23 Location: ED Sex: M C Admitted: Test Reason : GENERAL Blood Pressure : / mmHG Vent. Rate : 068 BPM Atrial Rate : 068 BPM P-R Int : 170 ms QRS Dur : 110 ms QT Int : 434 ms P-R-T Axes : 054 028 038 degrees QTc Int : 461 ms Sinus rhythm with Fusion complexes Possible Inferior infarct , age undetermined Abnormal ECG Confirmed by RADHA STEELE, STEVE ([id number]), editor greeting card LEELA SUTHERLAND ([id number]) on 12/17/2023 10:36:48 AM Referred By: Confirmed By:DICKSON ARTEAGA MD 12/17/23 1036 Date Michelle Arteaga MD CC: Dr. Nomi Garcia, DO; Dr. Annika Villasenor MD Signed Normal [facility] CBC W/Diff, Automatedon 11-29 Absolute Lymph 4.57 X10 3/uL High 0.83-4.51 [facility] Comment on above: Performed By: #### L 100.0100 #### [facility] [address] [place], [address] Absolute Neut 6.1 X10 3/uL Normal 2.0-7.7 [facility] Comment on above: Performed By: #### L 100.0100 #### [facility] [address] [place], [address] Basophils/100 WBC (Bld) 0.9 % Normal 0-1 [facility] Comment on above: Performed By: #### L 100.0100 #### [facility] [address] [place], [address] Eosinophils/100 WBC (Bld) 3.8 % Normal 0-5 [facility] Comment on above: Performed By: #### L 100.0100 #### [facility] [address] [place], [address] Erythrocyte distribution width (RBC) [Ratio] 13.3 % Normal 11.6-14.6 [facility] Comment on above: Performed By: #### L 100.0100 #### [facility] [address] [place], [address] Hematocrit (Bld) [Volume fraction] 45.3 % Normal 40-54 [facility] Comment on above: Performed By: #### L 100.0100 #### [facility] [address] [place], [address] Hemoglobin (Bld) [Mass/Vol] 14.2 g/dL Normal 13.0-16.5 [facility] Comment on above: Performed By: #### L 100.0100 #### [facility] [address] [place], [address] IG% 1.500 High 0.0-0.9 [facility] Comment on above: Result Comment: IG% - Immature Granulocytes (promyelocytes, myelocytes and metamyelocytes) > 1% indicates that a LEFT SHIFT is Present. Performed By: #### L 100.0100 #### [facility] [address] [place], [address] Lymphocytes/100 WBC (Bld) 37.5 % Normal 19-41 [facility] Comment on above: Performed By: #### L 100.0100 #### [facility] [address] [place], [address] MCH (RBC) [Entitic mass] 29.2 pg Normal 27.0-32.0 [facility] Comment on above: Performed By: #### L 100.0100 #### [facility] [address], [address] MCHC (RBC) [Mass/Vol] 31.3 g/dL Low 32-36 [facility] Comment on above: Performed By: #### L 100.0100 #### [facility] [address] [place], [address] MCV (RBC) [Entitic vol] 93.2 fL Normal 80-94 [facility] Comment on above: Performed By: #### L 100.0100 #### [facility] [address] [place], [address] Monocytes/100 WBC (Bld) 6.4 % Normal 0-10 [facility] Comment on above: Performed By: #### L 100.0100 #### [facility] [address] [place], [address] Neutrophils/100 WBC (Bld) 49.9 % Normal 47-70 [facility] Comment on above: Performed By: #### L 100.0100 #### [facility] [address] [place], [address] Nucleated RBC (Bld) [#/Vol] 0 10*3/uL Normal 0-5 [facility] Comment on above: Performed By: #### L 100.0100 #### [facility] [address] [place], [address] Platelet mean volume (Bld) [Entitic vol] 9.7 fL Normal 6.2-12.0 [facility] Comment on above: Performed By: #### L 100.0100 #### [facility] [address] [place], [address] Platelets (Bld) [#/Vol] 413 10*3/uL Normal 150-450 [facility] Comment on above: Performed By: #### L 100.0100 #### [facility] [address] [place], [address] RBC (Bld) [#/Vol] 4.86 10*6/uL Normal 4.6-6.2 [facility] Comment on above: Performed By: #### L 100.0100 #### [facility] [address] [place], [address] RDW SD 45.4 fl High 35.1-43.9 [facility] Comment on above: Performed By: #### L 100.0100 #### [facility] [address] [place], [address] WBC (Bld) [#/Vol] 12.2 10*3/uL High 4.4-11.0 [facility] Comment on above: Performed By: #### L 100.0100 #### [facility] [address] [place], [address] CTA Chst, Abd, Pel W and/or WOon 12-15-2023 CTA Chst, Abd, Pel W and/or WO [facility] Services [address] [place], [place] [address] CTA Chst, Abd, Pel W and/or WO MR#: [id number] Acct: [id number] Name: CHEY WALKER Rep #: [id number] : 1955 M 68 From: Doug Fields MD PCP: Dr. Annika Villasenor MD Status: [facility] Study: CTA Chst, Abd, Pel W and/or WO Date of Exam: 0 12/15/23 Exam# [id number] Ordering Dr: Nomi Garcia DO [id number] INDICATION: epigastric pain EXAMINATION: CTA CHEST, ABDOMEN AND PELVIS WITH CONTRAST - TECHNIQUE: A CTA of the chest, abdomen, and pelvis is obtained with sagittal and coronal reconstructed MIP views. Three-dimensional surface rendered sequence of the thoracic and abdominal aorta was obtained. A radiation dose optimization technique was used for this scan. mL of Isovue-370. Oral contrast: None. COMPARISON: None. FINDINGS: CT CHEST: THORACIC AORTA: Thick irregular noncalcified plaque throughout the aortic arch and descending aorta. 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 No pulmonary embolism. ABDOMINAL AORTA: Occluded distal [place] abdominal aorta with an aortobifem bypass graft which is patent. At the proximal anastomosis there is a 4.5 cm saccular aneurysm as well as a short stent or stent graft extending from the infrarenal abdominal aorta into the graft. There are multiple stents within the iliac portion of the graft which appear patent. The celiac axis and superior mesenteric artery are widely patent. The inferior mesenteric artery is excluded. Single renal arteries bilaterally without evidence of renal artery stenosis. LUNGS: Mild emphysema with subpleural scarring. No noncalcified nodule or mass. Some dependent bibasilar atelectasis. MEDIASTINUM: The thyroid gland is normal. No mediastinal or hilar adenopathy. HEART: Heart is normal size. No pericardial effusion. No CAD. CT ABDOMEN AND PELVIS: LIVER: The liver enhances homogeneously. No masses identified. GALLBLADDER: Tiny layering calcified stones in the neck of the gallbladder. Stranding of the surrounding fat worrisome for acute cholecystitis. Correlation with right upper quadrant ultrasound is recommended. SPLEEN: Normal. PANCREAS: No masses or inflammation. ADRENAL GLANDS: Normal. KIDNEYS AND URETERS: The kidneys both enhance appropriately. There are normal size and shape. No hydronephrosis or nephrolithiasis. No renal masses or cysts. STOMACH: Normal. SMALL BOWEL: No abnormal distention of the small bowel. MESENTERY: No mesenteric inflammation. No ascites. COLON: Multiple diverticula the sigmoid colon consistent with diverticulosis. No bowel wall thickening or stranding surrounding fat to suggest diverticulitis. The colon otherwise is normal. There is a large fatty ileocecal valve. APPENDIX: The appendix is visualized and normal. IVC: Normal. RETROPERITONEUM: No retroperitoneal lymphadenopathy. PELVIC STRUCTURES: Normal bladder. SOFT TISSUES ABDOMEN: The anterior abdominal wall is normal. SOFT TISSUE CHEST: The extrathoracic soft tissues are normal. BONES: No fractures or significant degenerative disease. CT/CTA Chst, Abd, Pel W and/or WO IMPRESSION: Suspect acute cholecystitis and correlation with right quadrant ultrasound is recommended. Thick irregular noncalcified plaque throughout the aortic arch and descending aorta but no aortic dissection. Occluded proximal left subclavian artery. No pulmonary embolism. Occluded distal [place] abdominal aorta and iliac arteries with an aortobifem bypass graft. 4.5 cm saccular aneurysm at the junction of the infrarenal abdominal aorta and the graft with a short stent or stent graft which is patent. Stents within the iliac portion of the graft which appear widely patent. Electronically Signed: Doug Fields MD at 17:52 EDT , CC: Dr. Nomi Garcia DO; Dr. Annika Villasenor MD Senior Oracle Database Administrator: Signed Normal [facility] Comprehensive Metabolic Prof ilon 12-15-2023 Albumin [Mass/Vol] 3.1 g/dL Low 3.2-5.0 [facility] Comment on above: Performed By: #### L 500.4050, L501.2450 #### [facility] [address] [place], [address] Albumin/Globulin [Mass ratio] 0.7 {ratio} Low 0.9-2.4 [facility] Comment on above: Performed By: #### L 500.4050, L501.2450 #### [facility] [address] [place], [address] ALK P 194 U/L High 45-117 [facility] Comment on above: Performed By: #### L 500.4050, L501.2450 #### [facility] [address] [place], [address] ALT [Catalytic activity/Vol] 12 U/L Low 16-61 [facility] Comment on above: Performed By: #### L 500.4050, L501.2450 #### [facility] [address] [place], [address] AST [Catalytic activity/Vol] 22 U/L Normal 15-37 [facility] Comment on above: Result Comment: Mode rate Hemolysis, Result may be falsely increased. Performed By: #### L 500.4050, L501.2450 #### [facility] [address] [place], [address] Bilirubin [Mass/Vol] 0.60 mg/dL Normal 0.20-1.00 [facility] Comment on above: Result Comment: For patients on eltrombopag therapy, use of Dimension [place] TBIL is not recommended. Performed By: #### L 500.4050, L501.2450 #### [facility] [address] [place], [address] BUN/CRE 8.9 RATIO Low 10-20 [facility] Comment on above: Performed By: #### L 500.4050, L501.2450 #### [facility] [address] [place], [address] CA,Total 9.3 mg/dL Normal 8.5-10.1 [facility] Comment on above: Performed By: #### L 500.4050, L501.2450 #### [facility] [address] [place], [address] Chloride [Moles/Vol] 107 mmol/L Normal 98-107 [facility] Comment on above: Performed By: #### L 500.4050, L501.2450 #### [facility] [address] [place], [address] CO2 [Moles/Vol] 23.0 mmol/L Normal 21.0-32.0 [facility] Comment on above: Performed By: #### L 500.4050, L501.2450 #### [facility] [address] [place], [address] Creatinine [Mass/Vol] 1.57 mg/dL High 0.70-1.30 [facility] Comment on above: Result Comment: The validity of the calculated GFR GFRAA in patients over 70 years has not been determined. Clinical correlation is essential. Performed By: #### L 500.4050, L501.2450 #### [facility] [address] [place], [address] ECRCL 50.78 ml/min Normal [facility] Comment on above: Performed By: #### L 500.4050, L501.2450 #### [facility] [address] [place], [address] EST GFR - AA 57 mL/min Low >60 [facility] Comment on above: Result Comment: Afri can [place]alese GFR Calc Performed By: #### L 500.4050, L501.2450 #### [facility] [address] [place], [address] GAP 8 Normal 5-15 [facility] Comment on above: Performed By: #### L 500.4050, L501.2450 #### [facility] [address] [place], [address] GFR/1.73 sq M.predicted among non-blacks MDRD (S/P/Bld) [Vol rate/Area] 47 mL/min/{1.73_m2} Low >60 [facility] Comment on above: Result Comment: Non- GFR Calc Performed By: #### L 500.4050, L501.2450 #### [facility] [address] [place], [address] Globulin (S) [Mass/Vol] 4.6 g/dL High 2.2-4.2 [facility] Comment on above: Performed By: #### L 500.4050, L501.2450 #### [facility] [address] [place], [address] Glucose [Mass/Vol] 132 mg/dL High 74-106 [facility] Comment on above: Result Comment: Fast ing Glucose result greater than or equal to 126 mg/dL suggests DIABETES MELLITUS per A.D.A. criteria. Performed By: #### L 500.4050, L501.2450 #### [facility] [address] [place], [address] Potassium [Moles/Vol] 4.0 mmol/L Normal 3.5-5.1 [facility] Comment on above: Result Comment: Mode rate Hemolysis, Result may be falsely increased. Performed By: #### L 500.4050, L501.2450 #### [facility] [address] [place], [address] Sodium [Moles/Vol] 138 mmol/L Normal 136-145 [facility] Comment on above: Performed By: #### L 500.4050, L501.2450 #### [facility] [address] [place], [address] T PROT 7.7 g/dL Normal 6.4-8.2 [facility] Comment on above: Performed By: #### L 500.4050, L501.2450 #### [facility] [address] [place] [place], [address] Urea nitrogen [Mass/Vol] 14 mg/dL Normal 7-18 [facility] Comment on above: Performed By: #### L 500.4050, L501.2450 #### [facility] [address] [place], [address] Emergency Department Summary on 12-15-2023 Emergency Department Summary [facility] Medical Records Department [address] [place] [address] Emergency Department Summary 12/15/23 MR#: [id number] Acct: [id number] Name: CHEY WALKER Rep #: [id number] : 1955 68 From: Nomi Garcia DO PCP: Dr. Annika Villasenor MD Status:DEP ER Location: ED HPI HPI - GI History of Present Illness Chief Complaint: Abd Pain Narrative Narrative: 68-year-old male presenting with epigastric pain. He states has been ongoing for couple of days. He has had it in the past. Patient also has history of mesenteric ischemia, abdominal aortic aneurysm, GERD. Patient states that the pain is constant and it is sharp in nature. Denies fevers. Denies constipation or diarrhea. Patient does state that he had spaghetti and sloppy Kevyn's back to back prior to the pain starting. He states he does not take his PPI at home. He does have nausea associated with the pain. 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 Hyperlipidemia Cardiomyopathy PAD (peripheral artery disease) CAD in [place] artery NSTEMI (non-ST elevated myocardial infarction) Essential hypertension Heart disease Arthritis HTN (hypertension) Home Medications ???Medication ???Instructions ???Recorded ???Last Taken ???Type clopidogrel 75 mg tablet (Plavix) 75 mg PO QDAY 07/24/17 10/31/23 History aspirin 81 mg tablet,delayed 81 mg PO DAILY@0800 01/30/19 10/31/23 History release atorvastatin 80 mg tablet 80 mg PO QHS 02/16/19 10/30/23 History metoprolol tartrate 25 mg tablet 25 mg PO BID #180 tabs 02/25/19 10/31/23 Rx lisinopril 5 mg tablet 5 mg PO QHS blood pressure 08/08/19 10/30/23 History nitroglycerin 0.4 mg sublingual 0.4 mg sublingual Q5-15M PRN Pain, 08/08/19 Unknown History tablet Mild pantoprazole 40 mg tablet,delayed 40 mg PO DAILY GERD 03/31/21 10/31/23 History release ondansetron 4 mg disintegrating 4 mg PO Q8H PRN PRN Nausea #20 tabs 10/31/23 Unknown Rx tablet omeprazole 40 mg capsule,delayed 40 mg PO DAILY #30 caps 12/15/23 Unknown Rx release sucralfate 100 mg/mL oral 10 ml PO BID PRN epigastric pain 12/15/23 Unknown Rx suspension (Carafate) #300 mL Allergy/AdvReac Type Severity Reaction Status Date / Time Sulfa (Sulfonamide Allergy Other Verified 12/15/23 15:30 Antibiotics) Family History Father CAD (coronary artery disease) Mother Cancer CAD (coronary artery disease) Surgical History Presence of coronary angioplasty implant and graft ( 06/08/19) History of coronary artery bypass surgery ( 2000) Abdominal aortic aneurysm without rupture S/P PTCA (percutaneous transluminal coronary angioplasty) History of open heart surgery History of xcopq-rzyum-dzfglyf bypass Social History Smoking Status: Current some day smoker tobacco type: cigarettes alcohol intake: current alcohol intake frequency: a few times a week Alcohol type: beer and hard liquor substance use type: does not use ROS ROS ED Constitutional Constitutional ED: Denies chills, fever(s) or sweats Eyes Eyes: Denies blurry vision or change in vision ENT ENT ED: Denies ear pain or sore throat Cardiovascular Cardiovascular: Denies chest pain, palpitations or racing heartbeat Respiratory/Chest Respiratory/Chest: Denies cough, dyspnea or sputum Gastrointestinal Gastrointestinal: Reports abdominal pain and nausea; Denies constipation, diarrhea or vomiting Genitourinary Genitourinary ED: Denies dysuria, hematuria or urinary frequency Musculoskeletal Musculoskeletal: Denies arthralgias, myalgias or neck pain Integumentary Denies abscess, Abrasions or rash Neurologic Neurologic: Denies headache(s), paresthesias or weakness Psychiatric Psychiatric: Denies anxiety, depression, suicidal ideation or suicidal thoughts Endocrine Endocrinology: Denies polydipsia or polyuria EXAM Physical Exam Const Vital Signs: 12/15/23 15:27 12/15/23 15:30 12/15/23 16:30 Temperature 97.9 F 98 F 98 F Temperature Source Temporal Oral Oral Pulse Rate 71 61 66 Respiratory Rate 22 H 20 H 20 H Blood Pressure 191/133 H 197/81 H 209/90 H Blood Pressure Mean 152 119 129 Pulse Ox 98 99 99 Oxygen Delivery Method Room Air Room Air Room Air 12/15/23 17:27 12/15/23 19:00 12/15/23 21:00 Temperature 97.8 F Temperature Source Temporal Pulse Rate 71 74 75 Respiratory Rate 19 H 20 H 1 (more content not included)... Normal [facility] Gallbladderon 12-15-2023 Gallbladder [facility] [address] [place] [address] Gallbladder MR#: [id number] Acct: [id number] Name: CHEY WALKER KAMRAN Rep #: [id number] : 1955 M 68 From: Kalin garrison MD PCP: Dr. Annika Villasenor MD Status: DEP ER Study: Gallbladder Date of Exam: 12/15/23 Exam# [id number] Ordering Dr: Nomi Garcia DO [id number] STUDY: ABDOMINAL ULTRASOUND - RIGHT UPPER QUADRANT REASON FOR VISIT: Male, 68 years old ruq pain TECHNIQUE: Ultrasound evaluation of the right upper quadrant was performed with real-time and static alarcon-scale imaging. TECHNICAL QUALITY: Limited. Examination limited due to the patient?s condition. COMPARISON: CT scan of the same day, previous ultrasound 10/31/2023. FINDINGS: Liver: The liver measures 14 cm. There is normal echogenicity of the liver. The bile ducts are within normal limits. There is hepatic color flow. The direction of portal flow is hepatopetal. There is no demonstrated mass lesion. Gallbladder: Normal distended gallbladder. The gallbladder wall measures 4 mm. There is a negative sonographic Rojo''s sign. There is no pericholecystic fluid. There are multiple echogenic structures within the gallbladder, consistent with multiple tiny gallstones. Common Bile Duct (C.B.D.): The common bile duct measures 4 mm. Pancreas: There is nonvisualization of the pancreas. Right Kidney: Normal size of the right kidney. The right kidney measures 9.6 cm. Normal renal cortex. The right cortex measures 1.3 cm. There is no demonstrated renal mass or cyst. There is no right hydronephrosis. US/Gallbladder IMPRESSION: Limited as above. Cholelithiasis. Electronically Signed: Kalin Acevedo MD at 19:27 EDT , CC: Dr. Nomi Garcia DO; Dr. Annika Villasenor MD Senior Oracle Database Administrator: Signed Normal [facility] L501.4020on 12-15-2023 TROPONIN-I HS 16 pg/mL Normal 3.0-78.0 [facility] Comment on above: Order Comment: Y Result Comment: Plea se Note: New Test Units and Gender Specific Reference Ranges. For more information see Policy Stat Procedure [place] High Sensitivity Troponin (TNIH) and attachments. Performed By: #### L 503.6005 #### [facility] [address] [place], [address] Lactic Acidon 12-15-2023 Lactate [Moles/Vol] 2.0 mmol/L Normal 0.4-1.9 [facility] Comment on above: Order Comment: Y Result Comment: Crit ical Result(s) Called at: 20:27:43 12/15/2023 by: ROGELIO KASPER TO [facility]. Results read back by same. Performed By: #### L 503.6005 #### [facility] [address] [place], [address] Lipaseon 12-15-2023 Lipase [Catalytic activity/Vol] 69 U/L Normal 13-75 [facility] Comment on above: Result Comment: Plea se note: LIPASE revised reference range effective 22. New Lipase methodology. Expected to produce lower values than the previous assay method. NEW Reference Range: 13 - 75 U/L Performed By: #### L 500.4050, L501.2450 #### [facility] [address] [place], [address] Urinalysis, Completeon 12-14 EPI,SQUAMOUS 0-5 SEEN Normal 0-5 [facility] Comment on above: Order Comment: CLEAN CATCH Performed By: #### L 400.0001 #### [facility] [address] [place], [address] BACTERIA 0 SEEN Normal None Seen [facility] Comment on above: Order Comment: CLEAN CATCH Performed By: #### L 400.0001 #### [facility] [address] [place], [address] Mucus Ql (Urine sed) 0 SEEN Normal [facility] Comment on above: Order Comment: CLEAN CATCH Performed By: #### L 400.0001 #### [facility] [address] [place], [address] RBC 0 SEEN Normal 0-5 [facility] Comment on above: Order Comment: CLEAN CATCH Performed By: #### L 400.0001 #### [facility] [address] [place], [address] WBC 0 SEEN Normal 0-5 [facility] Comment on above: Order Comment: CLEAN CATCH Performed By: #### L 400.0001 #### [facility] [address] [place], [address] CBC W/Diff, Automatedon 06-0 1-2023 Absolute Lymph 2.01 X10 3/uL Normal 0.83-4.51 [facility] Comment on above: Performed By: #### L 500.4050, L501.2450 #### [facility] [address] [place], [address] Absolute Neut 7.7 X10 3/uL Normal 2.0-7.7 [facility] Comment on above: Performed By: #### L 500.4050, L501.2450 #### [facility] [address] [place], [address] Basophils/100 WBC (Bld) 0.8 % Normal 0-1 [facility] Comment on above: Performed By: #### L 500.4050, L501.2450 #### [facility] [address] [place], [address] Eosinophils/100 WBC (Bld) 2.1 % Normal 0-5 [facility] Comment on above: Performed By: #### L 500.4050, L501.2450 #### [facility] [address] [place], [address] Erythrocyte distribution width (RBC) [Ratio] 13.0 % Normal 11.6-14.6 [facility] Comment on above: Performed By: #### L 500.4050, L501.2450 #### [facility] [address] [place], [address] Hematocrit (Bld) [Volume fraction] 44.4 % Normal 40-54 [facility] Comment on above: Performed By: #### L 500.4050, L501.2450 #### [facility] [address] [place], [address] Hemoglobin (Bld) [Mass/Vol] 14.5 g/dL Normal 13.0-16.5 [facility] Comment on above: Performed By: #### L 500.4050, L5.2450 #### [facility] [address] [place], [address] IG% 0.800 Normal 0.0-0.9 [facility] Comment on above: Result Comment: IG% - Immature Granulocytes (promyelocytes, myelocytes and metamyelocytes) > 1% indicates that a LEFT SHIFT is Present. Performed By: #### L 500.4050, L501.2450 #### [facility] [address] [place], [address] Lymphocytes/100 WBC (Bld) 19.0 % Normal 19-41 [facility] Comment on above: Performed By: #### L 500.4050, L501.2450 #### [facility] [address] [place], [address] MCH (RBC) [Entitic mass] 31.7 pg Normal 27.0-32.0 [facility] Comment on above: Performed By: #### L 500.4050, L501.2450 #### [facility] [address] [place], [address] MCHC (RBC) [Mass/Vol] 32.7 g/dL Normal 32-36 [facility] Comment on above: Performed By: #### L 500.4050, L501.2450 #### [facility] [address] [place], [address] MCV (RBC) [Entitic vol] 97.2 fL High 80-94 [facility] Comment on above: Performed By: #### L 500.4050, L501.2450 #### [facility] [address] [place], [address] Monocytes/100 WBC (Bld) 4.6 % Normal 0-10 [facility] Comment on above: Performed By: #### L 500.4050, L501.2450 #### [facility] [address] [place], [address] Neutrophils/100 WBC (Bld) 72.7 % High 47-70 [facility] Comment on above: Performed By: #### L 500.4050, L501.2450 #### [facility] [address] [place], [address] Nucleated RBC (Bld) [#/Vol] 0 10*3/uL Normal 0-5 [facility] Comment on above: Performed By: #### L 500.4050, L501.2450 #### [facility] [address] [place], [address] Platelet mean volume (Bld) [Entitic vol] 9.8 fL Normal 6.2-12.0 [facility] Comment on above: Performed By: #### L 500.4050, L501.2450 #### [facility] [address] [place], [address] Platelets (Bld) [#/Vol] 310 10*3/uL Normal 150-450 [facility] Comment on above: Performed By: #### L 500.4050, L501.2450 #### [facility] [address] [place], [address] RBC (Bld) [#/Vol] 4.57 10*6/uL Low 4.6-6.2 [facility] Comment on above: Performed By: #### L 500.4050, L501.2450 #### [facility] [address] [place], [address] RDW SD 47.0 fl High 35.1-43.9 [facility] Comment on above: Performed By: #### L 500.4050, L501.2450 #### [facility] [address] [place], [address] WBC (Bld) [#/Vol] 10.6 10*3/uL Normal 4.4-11.0 [facility] Comment on above: Performed By: #### L 500.4050, L501.2450 #### [facility] [address] [place], [address] CTA Chst, Abd, Pel W and/or WOon 10-31-2023 CTA Chst, Abd, Pel W and/or WO [facility] [address] [place] [address] CTA Chst, Abd, Pel W and/or WO MR#: [id number] Acct: [id number] Name: CHEY WALKER Rep #: [id number] : 1955 M 68 From: Joan bañuelos MD PCP: Dr. Annika Villasenor MD Status: [facility] ER Study: CTA Chst, Abd, Pel W and/or WO Date of Exam: 0 10/31/23 Exam# [id number] Ordering Dr: Nomi Garcia DO [id number] HISTORY: abdominal pain. TECHNIQUE: CTA chest, abdomen, and pelvis was obtained after the intravenous administration of 100 mL Isovue-370 with sagittal and coronal reconstructed MIP views. Three-dimensional surface rendered sequence of the thoracic and abdominal aorta was obtained. A radiation dose optimization technique was used for this scan. 974 images. COMPARISON: 04/22/2023, 08/13/2022. FINDINGS: Chest- CENTRAL AIRWAYS: Grossly patent. LUNGS: Mild chronic interstitial lung disease with honeycombing and peripheral reticular opacities. Mild dependent opacities with septal thickening. PLEURA: No pneumothorax or significant pleural effusion. HEART/PERICARDIUM: Heart within normal limits in size. Midline sternotomy with coronary artery bypass graft. No significant pericardial effusion. VESSELS: Calcified and noncalcified plaque of the thoracic aorta with chronic mural thrombus and ulcerations. No thoracic aortic aneurysm. No filling defect in the pulmonary arteries. MEDIASTINUM/CHAD: No pathologically enlarged lymphadenopathy. OSSEOUS STRUCTURES: Degenerative change. Abdomen and pelvis- BOWEL: Bowel including appendix nondilated. Colonic diverticulosis without focal pericolonic inflammatory change. PERITONEUM: No significant ascites. LIVER: No enhancing mass. GALLBLADDER: Small calcified gallstones with mild gallbladder wall edema. SPLEEN/PANCREAS/ADRENAL GLANDS: Homogeneous and nonenlarged. KIDNEYS: Chronic mild cortical thinning. No hydronephrosis. Normal enhancement. VESSELS: Calcified and noncalcified plaque of the abdominal aorta with chronic mural thrombus. 3.8 x 4.9 cm aneurysm of the infrarenal abdominal aorta containing a patent stent at its left aspect, similar to prior. No acute retroperitoneal hematoma or contrast leak. No significant stenosis of the celiac axis, superior mesenteric, or bilateral renal arteries. Chronic collateral flow of the inferior mesenteric artery. Patent right iliac artery stent. Patent left external iliac/common femoral artery stent. PELVIC ORGANS: Unremarkable. OSSEOUS STRUCTURES: Degenerative change. CT/CTA Chst, Abd, Pel W and/or WO IMPRESSION: Chronic interstitial lung disease with mild pulmonary edema and atelectasis. No evidence of pulmonary embolism. Chronic mural thrombus and ulcerations of the thoracic aorta without aneurysm. No significant interval change in size of abdominal aortic aneurysm. No acute rupture. Cholelithiasis and mild gallbladder wall edema, concerning for acute cholecystitis. Colonic diverticulosis without acute diverticulitis. Electronically Signed: Joan Villa MD at 8:50 EDT , CC: Dr. Nomi Garcia DO; Dr. Annika Villasenor MD Senior Oracle Database Administrator: Signed Normal [facility] Comprehensive Metabolic Prof ilon 10-31-2023 Albumin [Mass/Vol] 3.1 g/dL Low 3.2-5.0 [facility] Comment on above: Performed By: #### L 500.4050, L501.2450 #### [facility] [address] [place], [address] Albumin/Globulin [Mass ratio] 0.8 {ratio} Low 0.9-2.4 [facility] Comment on above: Performed By: #### L 500.4050, L501.2450 #### [facility] [address] [place], [address] ALK P 172 U/L High 45-117 [facility] Comment on above: Performed By: #### L 500.4050, L501.2450 #### [facility] [address] [place], [address] ALT [Catalytic activity/Vol] 14 U/L Low 16-61 [facility] Comment on above: Performed By: #### L 500.4050, L501.2450 #### [facility] [address] [place], [address] AST [Catalytic activity/Vol] 10 U/L Low 15-37 [facility] Comment on above: Performed By: #### L 500.4050, L501.2450 #### [facility] [address] [place], [address] Bilirubin [Mass/Vol] 0.60 mg/dL Normal 0.20-1.00 [facility] Comment on above: Result Comment: For patients on eltrombopag therapy, use of Dimension [place] TBIL is not recommended. Performed By: #### L 500.4050, L501.2450 #### [facility] [address] [place], [address] BUN/CRE 9.4 RATIO Low 10-20 [facility] Comment on above: Performed By: #### L 500.4050, L501.2450 #### [facility] [address] [place], [address] CA,Total 8.6 mg/dL Normal 8.5-10.1 [facility] Comment on above: Performed By: #### L 500.4050, L501.2450 #### [facility] [address] [place], [address] Chloride [Moles/Vol] 109 mmol/L High 98-107 [facility] Comment on above: Performed By: #### L 500.4050, L501.2450 #### [facility] [address] [place], [address] CO2 [Moles/Vol] 22.0 mmol/L Normal 21.0-32.0 [facility] Comment on above: Performed By: #### L 500.4050, L501.2450 #### [facility] [address] [place], [address] Creatinine [Mass/Vol] 1.38 mg/dL High 0.70-1.30 [facility] Comment on above: Result Comment: The validity of the calculated GFR GFRAA in patients over 70 years has not been determined. Clinical correlation is essential. Performed By: #### L 500.4050, L501.2450 #### [facility] [address] [place], [address] ECRCL 52.90 ml/min Normal [facility] Comment on above: Performed By: #### L 500.4050, L501.2450 #### [facility] [address] [place], [address] EST GFR - AA 66 mL/min Normal >60 [facility] Comment on above: Result Comment: Afri can Nepalese GFR Calc Performed By: #### L 500.4050, L501.2450 #### [facility] [address] [place], [address] GAP 8 Normal 5-15 [facility] Comment on above: Performed By: #### L 500.4050, L501.2450 #### [facility] [address] [place], [address] GFR/1.73 sq M.predicted among non-blacks MDRD (S/P/Bld) [Vol rate/Area] 54 mL/min/{1.73_m2} Low >60 [facility] Comment on above: Result Comment: Non- GFR Calc Performed By: #### L 500.4050, L501.2450 #### [facility] [address] [place], [address] Globulin (S) [Mass/Vol] 3.9 g/dL Normal 2.2-4.2 [facility] Comment on above: Performed By: #### L 500.4050, L501.2450 #### [facility] [address] [place], [address] Glucose [Mass/Vol] 185 mg/dL High 74-106 [facility] Comment on above: Result Comment: Fast ing Glucose result greater than or equal to 126 mg/dL suggests DIABETES MELLITUS per A.D.A. criteria. Performed By: #### L 500.4050, L501.2450 #### [facility] [address] [place], [address] Potassium [Moles/Vol] 3.8 mmol/L Normal 3.5-5.1 [facility] Comment on above: Performed By: #### L 500.4050, L501.2450 #### [facility] [address] [place], [address] Sodium [Moles/Vol] 139 mmol/L Normal 136-145 [facility] Comment on above: Performed By: #### L 500.4050, L501.2450 #### [facility] [address] [place], [address] T PROT 7.0 g/dL Normal 6.4-8.2 [facility] Comment on above: Performed By: #### L 500.4050, L501.2450 #### [facility] [address] [place], [address] Urea nitrogen [Mass/Vol] 13 mg/dL Normal 7-18 [facility] Comment on above: Performed By: #### L 500.4050, L501.2450 #### [facility] [address] [place], [address] Emergency Department Summary on 10-31-2023 Emergency Department Summary [facility] Medical Records Department [address] [place] [address] Emergency Department Summary 10/31/23 MR#: [id number] Acct: [id number] Name: CHEY WALKER Rep #: [id number] : 1955 68 From: Nomi Garcia DO PCP: Dr. Annika Villasenor MD Status:REG ER Location: ED HPI HPI - GI History of Present Illness Chief Complaint: Abd Pain Narrative Narrative: 68-year-old male presenting with abdominal pain. He describes as diffuse and aching. It started last evening. Patient states he had a similar aching in his stomach about 6 months ago. He states he followed up with GI after this and had a pill endoscopy which was normal. Patient also has a history of endovascular stent of his aorta and has an abdominal aneurysm which last measured at 5.18 centimeters. Patient states the last time he had this he was told that his aneurysm had enlarged. He states he followed up with vascular about 3 months ago and they stated he was stable. He denies a ripping or tearing sensation. Denies chest pain. He is not having constipation, diarrhea, fever, chills, nausea, vomiting. 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 Hyperlipidemia Cardiomyopathy PAD (peripheral artery disease) CAD in [place] artery NSTEMI (non-ST elevated myocardial infarction) Essential hypertension Heart disease Arthritis HTN (hypertension) Home Medications ???Medication ???Instructions ???Recorded ???Last Taken ???Type clopidogrel 75 mg tablet (Plavix) 75 mg PO QDAY 07/24/17 10/31/23 History aspirin 81 mg tablet,delayed 81 mg PO DAILY@0800 01/30/19 10/31/23 History release atorvastatin 80 mg tablet 80 mg PO QHS 02/16/19 10/30/23 History metoprolol tartrate 25 mg tablet 25 mg PO BID #180 tabs 02/25/19 10/31/23 Rx lisinopril 5 mg tablet 5 mg PO QHS blood pressure 08/08/19 10/30/23 History nitroglycerin 0.4 mg sublingual 0.4 mg sublingual Q5-15M PRN Pain, 08/08/19 Unknown History tablet Mild pantoprazole 40 mg tablet,delayed 40 mg PO DAILY GERD 03/31/21 10/31/23 History release Allergy/AdvReac Type Severity Reaction Status Date / Time Sulfa (Sulfonamide Allergy Other Verified 10/31/23 06:56 Antibiotics) Family History Father CAD (coronary artery disease) Mother Cancer CAD (coronary artery disease) Surgical History Presence of coronary angioplasty implant and graft ( 06/08/19) History of coronary artery bypass surgery ( 2000) Abdominal aortic aneurysm without rupture S/P PTCA (percutaneous transluminal coronary angioplasty) History of open heart surgery History of etbbj-jcbaf-gkilsfh bypass Social History Smoking Status: Current some day smoker tobacco type: cigarettes alcohol intake: current alcohol intake frequency: a few times a week Alcohol type: beer and hard liquor substance use type: does not use ROS ROS ED Constitutional Constitutional ED: Denies chills, fever(s) or sweats Eyes Eyes: Denies blurry vision or change in vision ENT ENT ED: Denies ear pain or sore throat Cardiovascular Cardiovascular: Denies chest pain, palpitations or racing heartbeat Respiratory/Chest Respiratory/Chest: Denies cough, dyspnea or sputum Gastrointestinal Gastrointestinal: Reports abdominal pain; Denies constipation, diarrhea, nausea or vomiting Genitourinary Genitourinary ED: Denies dysuria, hematuria or urinary frequency Musculoskeletal Musculoskeletal: Denies arthralgias, myalgias or neck pain Integumentary Denies abscess, Abrasions or rash Neurologic Neurologic: Denies headache(s), paresthesias or weakness Psychiatric Psychiatric: Denies anxiety, depression, suicidal ideation or suicidal thoughts Endocrine Endocrinology: Denies polydipsia or polyuria EXAM Physical Exam Const Vital Signs: 10/31/23 06:56 10/31/23 08:56 10/31/23 10:00 Temperature 97.1 F L Temperature Source Temporal Pulse Rate 66 80 80 Respiratory Rate 19 H 18 16 Blood Pressure 205/81 H 195/77 H 200/85 H Blood Pressure Mean 122 116 123 Pulse Ox 98 96 96 Oxygen Delivery Method Room Air Room Air Room Air Positive well nourished and obese Nutritional Appearance: obese HEENT Reports TM's clear and moist mucous membranes Tympanic Membrane ED: Yes TM's clear Eyes PERRL and EOMs intact bilaterally General Eye ED: Negative for scleral icterus Neck no lymphadenopathy Resp normal (more content not included)... Normal [facility] Gallbladderon 10-31-2023 Gallbladder [facility] [address], [place] [address] Gallbladder MR#: [id number] Acct: [id number] Name: CHEY WALKER Rep #: [id number] : 1955 M 68 From: Joan bañuelos MD PCP: Dr. Annika Villasenor MD Status: REG ER Study: Gallbladder Date of Exam: 10/31/23 Exam# [id number] Ordering Dr: Nomi Garcia DO [id number] HISTORY: abdominal pain. TECHNIQUE: Alarcon scale and color doppler imaging was performed of the right upper quadrant. 134 images. COMPARISON: CTA same day. FINDINGS: LIVER: 14.3 cm in length. Homogeneous echotexture without focal lesion demonstrated. No intrahepatic ductal dilatation. COMMON BILE DUCT: 5 mm in diameter. GALLBLADDER: Small gallstones in the gallbladder neck. 3 mm wall thickness. No pericholecystic fluid. Sonographic Rojo sign negative. PANCREAS: Not well visualized due to overlying bowel gas. RIGHT KIDNEY: 9.7 cm in length with a cortical thickness of 1.4 cm. No hydronephrosis or gross renal mass demonstrated. US/Gallbladder IMPRESSION: Cholelithiasis with the gallbladder wall thickness upper limits of normal. Electronically Signed: Joan Villa MD at 10:22 EDT Reading Location ID and State: [facility] / [place] Tel , Service support , CC: Dr. Nomi Garcia DO; Dr. Annika Villasenor MD Senior Oracle Database Administrator: Signed Normal [facility] Lipaseon 10-31-2023 Lipase [Catalytic activity/Vol] 54 U/L Normal 13-75 [facility] Comment on above: Result Comment: Luz nelson note: LIPASE revised reference range effective 22. New Lipase methodology. Expected to produce lower values than the previous assay method. NEW Reference Range: 13 - 75 U/L Performed By: #### L 500.4050, L501.2450 #### [facility] [address] [place], [address] Urinalysis, Completeon 10-30 BACTERIA 0 SEEN Normal None Seen [facility] Comment on above: Order Comment: CLEAN CATCH Performed By: #### L 500.4050, L501.2450 #### [facility] [address] [place], [address] EPI,SQUAMOUS 0 SEEN Normal 0-5 [facility] Comment on above: Order Comment: CLEAN CATCH Performed By: #### L 500.4050, L501.2450 #### [facility] [address] [place], [address] Mucus Ql (Urine sed) 0 SEEN Normal [facility] Comment on above: Order Comment: CLEAN CATCH Performed By: #### L 500.4050, L501.2450 #### [facility] [address] [place], [address] RBC 0 SEEN Normal 0-5 [facility] Comment on above: Order Comment: CLEAN CATCH Performed By: #### L 500.4050, L501.2450 #### [facility] [address] [place], [address] WBC 0 SEEN Normal 0-5 [facility] Comment on above: Order Comment: CLEAN CATCH Performed By: #### L 500.4050, L501.2450 #### [facility] [address] [place], [address] Laboratory - Drug toxicology Ordered By: Shweta Lofton on 07-09-2023 Amphetamines Ql (U) Negative <1000 ng/mL [facility] Benzodiazepines Ql (U) Negative < 200 ng/mL [facility] Cannabinoids Screen Ql (U) Negative < 50 ng/mL [facility] Cocaine Ql (U) Negative < 300 ng/mL [facility] Opiates Ql (U) Positive < 300 ng/mL [facility] No Panel InformationOrdered By: Shweta Lofton on 07-09-2023 MDMA (Ecstasy) Screen Negative < 500 ng/mL [facility] Miscellaneous Test See comment [facility] Comment on above: [id number] 6+OXYCODONE-B UND (ng/mL) DRUG RESULT SCREEN CUTOFF____ Amphetamines,Urine Negative ng/mL 1000 Amphetamine test includes Amphetamine and Methamphetamine.Barbiturates Negative ng/mL 200Benzodiazepines Negative ng/mL 200Cannabinoid Negative ng/mL 20Cocaine (Metab) Negative ng/mL 300Opiates Negative ng/mL 300 Opiates test includes Codeine, Morphine, Hydromorphone, Hydrocodone. Oxycodone/Oxymorphone,Urine Negative ng/mL 300 Test includes Oxycodone and Oxymorphone. TESTING PERFORMED AT [facility]. ORIGINAL REPORT ON FILE IN LAB CONTAINS ADDITIONAL TEST SITE INFORMATION. Urine Barbiturates Screen Negative < 200 ng/mL [facility] Urine Drug Screen Comment [facility] Comment on above: CONFIRMATORY TESTING FOR ALL POSITIVE URINE DRUG SCREENRESULTS WILL ONLY BE SENT OUT UPON PHYSICIAN ORDER. VISTA Urine Drug Screen methods provide only preliminaryanalytical test results. A more specific alternate chemicalmethod must be used in order to obtain a confirmedanalytical result. Gas chromatography/mass spectrometery(GC/MS) is the preferred confirmatory method. Clinicalconsideration and professional judgement should be appliedto any drug of abuse test result, particularly whenpreliminary positive results are used. URINE TCA TESTING MUST BE ORDERED SEPARATELY. USE TESTMNEMONIC: [facility] Urine Methadone Screen Negative < 300 ng/mL [facility] Urine phencyclidine (PCP) de tectionOrdered By: Shweta Lofton on 07-09-2023 Phencyclidine Ql (U) Negative < 25 ng/mL [facility] Absolute lymphocyte countOrd ered By: Duc Monroy on 04-22-2023 Lymphocytes Auto (Unsp spec) [#/Vol] 2.29 10*3/uL 0.83-4.51 [facility] Basophil percentageOrdered B y: Duc Monroy on 04-22-2023 Lactate [Moles/Vol] 1.5 mmol/L 0.4-2.0 [facility] Basophils/100 WBC (Bld) 0.8 % 0-1 [facility] Bilirubin [Mass/Vol] 0.80 mg/dL 0.20-1.00 [facility] Comment on above: For patients on eltr ombopag therapy, use of Dimension [place] TBIL is not recommended. Chloride [Moles/Vol] 111 mmol/L 98-107 [facility] Eosinophils/100 WBC (Bld) 0.6 % 0-5 [facility] Glucose [Mass/Vol] 149 mg/dL 74-106 [facility] Comment on above: Fasting Glucose resu lt greater than or equal to 126 mg/dL suggests DIABETES MELLITUS per A.D.A. criteria. Neutrophils (Bld) [#/Vol] 11.7 10*3/uL 2.0-7.7 [facility] Neutrophils/100 WBC (Bld) 78.4 % 47-70 [facility] Potassium [Moles/Vol] 4.2 mmol/L 3.5-5.1 [facility] Protein [Mass/Vol] 7.7 g/dL 6.4-8.2 [facility] Sodium [Moles/Vol] 137 mmol/L 136-145 [facility] WBC (Bld) [#/Vol] 14.9 10*3/uL 4.4-11.0 [facility] Blood erythrocytes count (nu mber/volume)Ordered By: Duc Monroy on 04-22-2023 RBC (Bld) [#/Vol] 4.98 10*6/uL 4.6-6.2 [facility] Blood hemoglobin measurement (mass/volume)Ordered By: Duc Monroy on 04-22-2023 Hemoglobin (Bld) [Mass/Vol] 15.2 g/dL 13.0-16.5 [facility] Blood lymphocytes/100 leukoc ytesOrdered By: Duc Monroy on 04-22-2023 Lymphocytes/100 WBC (Bld) 15.4 % 19-41 [facility] Blood monocytes/100 leukocyt esOrdered By: Duc Monroy on 04-22-2023 Monocytes/100 WBC (Bld) 3.6 % 0-10 [facility] Blood platelet mean volumeOr dered By: Duc Monroy on 04-22-2023 Platelet mean volume (Bld) [Entitic vol] 10.0 fL 6.2-12.0 [facility] Determination of erythrocyte mean corpuscular volume (MCV)Ordered By: Duc Monroy on 04-22-2023 MCV (RBC) [Entitic vol] 94.2 fL 80-94 [facility] Direct bilirubinOrdered By: Duc Monroy on 04-22-2023 Bilirubin.direct [Mass/Vol] 0.28 mg/dL 0.00-0.30 [facility] Hematocrit Auto (Bld) [Volum e fraction]Ordered By: Duc Monroy on 04-22-2023 Hematocrit (Bld) [Volume fraction] 46.9 % 40-54 [facility] - Chemistry and C hemistry - challengeOrdered By: Duc Le on 04-22-2023 ALP [Catalytic activity/Vol] 198 U/L 45-117 [facility] ALT [Catalytic activity/Vol] 16 U/L 16-61 [facility] CO2 [Moles/Vol] 21.0 mmol/L 21.0-32.0 [facility] Globulin (S) [Mass/Vol] 4.3 g/dL 2.2-4.2 [facility] Lipase [Catalytic activity/Vol] 49 U/L 13-75 [facility] Comment on above: Please note:LIPASE r evised reference range effective 22. New Lipase methodology. Expected to produce lower values than the previous assay method. NEW Reference Range: 13 - 75 U/L Urea nitrogen/Creatinine [Mass ratio] 14.4 mg/mg 10-20 [facility] - Hematology and Cell countsOrdered By: Duc Monroy on 04-22-2023 Erythrocyte distribution width (RBC) [Entitic vol] 50.9 fL 35.1-43.9 [facility] Erythrocyte distribution width (RBC) [Ratio] 14.8 % 11.6-14.6 [facility] Immature granulocytes/100 WBC (Bld) 1.200 % 0.0-0.9 [facility] Comment on above: IG% - Immature Granu locytes (promyelocytes, myelocytes and metamyelocytes) > 1% indicates that a LEFT SHIFT is Present. MCH (RBC) [Entitic mass] 30.5 pg 27.0-32.0 [facility] Nucleated RBC/100 WBC (Bld) [Ratio] 0 % 0-5 [facility] ([facility]) [Mass/Vol]Or dered By: Duc Monroy on 04-22-2023 MCHC (RBC) [Mass/Vol] 32.4 g/dL 32-36 [facility] No Panel InformationOrdered By: Duc Monroy on 04-22-2023 Estimated Creatinine Clearance Calc 48.38 ml/min [facility] Estimated GFR (MDRD) Amer 59 mL/min >60 [facility] Comment on above: GFR Calc Estimated GFR (MDRD) Non-Af Amer 48 mL/min >60 [facility] Comment on above: Non- GFR Calc Platelets bldOrdered By: Ryan Monroy on 04-22-2023 Platelets (Bld) [#/Vol] 362 10*3/uL 150-450 [facility] Serum or plasma albumin sofya urement (mass/volume)Ordered By: Duc Monroy on 04-22-2023 Albumin [Mass/Vol] 3.4 g/dL 3.2-5.0 [facility] Serum or plasma calcium sofya urement (mass/volume)Ordered By: Duc Monroy on 04-22-2023 Calcium [Mass/Vol] 9.2 mg/dL 8.5-10.1 [facility] Serum or plasma creatinine m easurement (mass/volume)Ordered By: Duc Monroy on 04-22-2023 Creatinine [Mass/Vol] 1.53 mg/dL 0.70-1.30 [facility] Comment on above: The validity of the calculated GFR & GFRAA in patients over 70 years has not been determined. Clinical correlation is essential. Serum or plasma urea nitroge n measurement (mass/volume)Ordered By: Duc Monroy on 04-22-2023 Urea nitrogen [Mass/Vol] 22 mg/dL 7-18 [facility] Thin prep Papanicolaou smear with manual screeningOrdered By: Duc Monroy on 04-22-2023 Thin prep Papanicolaou smear with manual screening 16 U/L 15-37 [facility] Thin prep Papanicolaou smear with manual screening 5 5-15 [facility] No Panel InformationOrdered By: Markel Friend on 09-30-2022 Endomysial IgA Antibody Negative Negative [facility] Miscellaneous Test See comment [facility] Comment on above: TEST RESULT LIMITSIB D Expanded Panel Chasidy 14 units 0-50 Negative <45 Equivocal 45 - 50 Positive >50 ACCA 20 units 0-90 Negative <80 Equivocal 80 - 90 Positive >90 ALCA 10 units 0-60 Negative <55 Equivocal 55 - 60 Positive >60 AMCA 24 units 0-100 Negative < 90 Equivocal 90 - 100 Positive >100 This test was developed and its performance characteristics [facility]. It has not been cleared or approved by the Food and Drug Administration. The FDA has determined that such clearance or approval is not necessary.Atypical pANCA Negative Negative Comments Pattern is not suggestive of Inflammatory Bowel Disease __ TESTING PERFORMED AT [facility]. ORIGINAL REPORT ON FILE IN LAB CONTAINS ADDITIONAL TEST SITE INFORMATION. Qualitative QuantiFERON-TB g old in tube testOrdered By: Markel Sarabia on 09-30-2022 M. tuberculosis tuberculin stim IFN-g Ql (Bld) 0.03 IU/mL . [facility] Serum IgA measurement (units /volume)Ordered By: Markel Sarabia on 09-30-2022 IgA Qn (S) 614 mg/dL 61-437 [facility] Serum tissue transglutaminas e IgA antibody assay (units/volume)Ordered By: Markel Sarabia on 09-30-2022 tTG IgA Qn (S) <2 U/mL 0-3 [facility] Comment on above: Negative 0 - 3 Weak Positive 4 - 10 Positive >10 Tissue Transglutaminase (tTG) has been identified as the endomysial antigen. Studies have demonstr- ated that endomysial IgA antibodies have over 99% specificity for gluten sensitive enteropathy. Thin prep Papanicolaou smear with manual screeningOrdered By: Markel Sarabia on 09-30-2022 Thin prep Papanicolaou smear with manual screening Comment . [facility] Comment on above: QuantiFERON-TB Gold Plus is a qualitative indirect test forM tuberculosis infection (including disease) and isintended for use in conjunction with risk assessment,radiography, and other medical and diagnostic evaluations.The QuantiFERON-TB Gold Plus result is determined bysubtracting the Nil value from either TB antigen (Ag)value. The Mitogen tube serves as a control for the test. Thin prep Papanicolaou smear with manual screening 0.03 IU/mL . [facility] Thin prep Papanicolaou smear with manual screening 0.01 IU/mL . [facility] Thin prep Papanicolaou smear with manual screening > 10.00 IU/mL . [facility] Thin prep Papanicolaou smear with manual screening Negative Negative [facility] Comment on above: No response to M tub erculosis antigens detected.Infection with M tuberculosis is unlikely, but high riskindividuals should be considered for additional testing(ATS/IDSA/CDC Clinical Practice Guidelines, 2017). Thereference range is an Antigen minus Nil result of <0.35IU/mL.The specimen received for QuantiFERON testing was incubatedby the ordering institution. Specific procedures outlinedin our Directory of Services and in the package insert forthe QuantiFERON Gold (In Tube) test must be followed toenable for proper stimulation of cells for the productionof interferon gamma. Chemiluminescence immunoassaymethodologyPerformed at: [facility] [id number] Director: Alexei Dickson PhD, Phone: [phone] Absolute lymphocyte countOrd ered By: Dr. Fernandez on 08-14-2022 Lymphocytes Auto (Unsp spec) [#/Vol] 2.21 10*3/uL 0.83-4.51 [facility] Albumin Elph [Mass/Vol]Order ed By: Markel Sarabia on 08-14-2022 Albumin [Mass/Vol] 2.4 g/dL 2.9-4.4 [facility] Atypical perinuclear antineu trophil cytoplasmic antibodies measurementOrdered By: Markel Sarabia on 08-14-2022 Neutrophil cytoplasmic Ab.perinuclear.atypical IF (S) [Titer] <1:20 titer Neg:<1:20 [facility] Comment on above: The atypical pANCA p attern has been observed in asignificant percentage of patients with ulcerative colitis,primary sclerosing cholangitis and autoimmune hepatitis.Performed at: [address] [id number] Director: Alexei Dickson PhD, Phone: [phone] Basophil percentageOrdered B y: Dr. Fernandez on 08-14-2022 Basophils/100 WBC (Bld) 0.5 % 0-1 [facility] Bilirubin [Mass/Vol] 1.10 mg/dL 0.20-1.00 [facility] Comment on above: For patients on eltr ombopag therapy, use of Dimension [place] TBIL is not recommended. Chloride [Moles/Vol] 111 mmol/L 98-107 [facility] Eosinophils/100 WBC (Bld) 2.7 % 0-5 [facility] Glucose [Mass/Vol] 81 mg/dL 74-106 [facility] Neutrophils (Bld) [#/Vol] 7.4 10*3/uL 2.0-7.7 [facility] Neutrophils/100 WBC (Bld) 66.5 % 47-70 [facility] Potassium [Moles/Vol] 4.6 mmol/L 3.5-5.1 [facility] Protein [Mass/Vol] 5.1 g/dL 6.4-8.2 [facility] Sodium [Moles/Vol] 140 mmol/L 136-145 [facility] WBC (Bld) [#/Vol] 11.2 10*3/uL 4.4-11.0 [facility] Blood erythrocytes count (nu mber/volume)Ordered By: Dr. Fernandez on 08-14-2022 RBC (Bld) [#/Vol] 4.02 10*6/uL 4.6-6.2 [facility] Blood hemoglobin measurement (mass/volume)Ordered By: Dr. Fernandez on 08-14-2022 Hemoglobin (Bld) [Mass/Vol] 12.3 g/dL 13.0-16.5 [facility] Blood lymphocytes/100 leukoc ytesOrdered By: Dr. Fernandez on 08-14-2022 Lymphocytes/100 WBC (Bld) 19.8 % 19-41 [facility] Blood monocytes/100 leukocyt esOrdered By: Dr. Fernandez on 08-14-2022 Monocytes/100 WBC (Bld) 8.6 % 0-10 [facility] Blood platelet mean volumeOr dered By: Dr. Fernandez on 08-14-2022 Platelet mean volume (Bld) [Entitic vol] 9.7 fL 6.2-12.0 [facility] Determination of erythrocyte mean corpuscular volume (MCV)Ordered By: Dr. Fernandez on 08-14-2022 MCV (RBC) [Entitic vol] 97.5 fL 80-94 [facility] Hematocrit Auto (Bld) [Volum e fraction]Ordered By: Dr. Fernandez on 08-14-2022 Hematocrit (Bld) [Volume fraction] 39.2 % 40-54 [facility] Interpretation of serum or p lasma protein pattern by immunofixation (narrative resultOrdered By: Markel Sarabia on 08-14-2022 Protein Fractions Immunofixation Eusebio [Interp] See comment [facility] Comment on above: NOT OBSERVED Laboratory - Chemistry and C hemistry - challengeOrdered By: Dr. Fernandez on 08-14-2022 ALP [Catalytic activity/Vol] 132 U/L 45-117 [facility] ALT [Catalytic activity/Vol] 14 U/L 16-61 [facility] CO2 [Moles/Vol] 25.0 mmol/L 21.0-32.0 [facility] Globulin (S) [Mass/Vol] 2.9 g/dL 2.2-4.2 [facility] Magnesium [Mass/Vol] 1.9 mg/dL 1.6-2.6 [facility] Urea nitrogen/Creatinine [Mass ratio] 15.2 mg/mg 10-20 [facility] - Hematology and Cell countsOrdered By: Dr. Fernandez on 08-14-2022 Erythrocyte distribution width (RBC) [Entitic vol] 52.1 fL 35.1-43.9 [facility] Erythrocyte distribution width (RBC) [Ratio] 14.5 % 11.6-14.6 [facility] Immature granulocytes/100 WBC (Bld) 1.900 % 0.0-0.9 [facility] Comment on above: IG% - Immature Granu locytes (promyelocytes, myelocytes and metamyelocytes) > 1% indicates that a LEFT SHIFT is Present. MCH (RBC) [Entitic mass] 30.6 pg 27.0-32.0 [facility] Nucleated RBC/100 WBC (Bld) [Ratio] 0 % 0-5 [facility] MCHC Auto (RBC) [Mass/Vol]Or dered By: Dr. Fernandez on 08-14-2022 MCHC (RBC) [Mass/Vol] 31.4 g/dL 32-36 [facility] No Panel InformationOrdered By: Markel Sarabia on 08-14-2022 Addendum Document Comment . [facility] Comment on above: Protein electrophore sis scan will follow via computer,mail, or supervisor paper machine delivery. No Panel InformationOrdered By: Dr. Fernandez on 08-14-2022 Estimated Creatinine Clearance Calc 72.71 ml/min [facility] Estimated GFR (MDRD) Amer 91 mL/min >60 [facility] Comment on above: GFR Calc Estimated GFR (MDRD) Non-Af Amer 75 mL/min >60 [facility] Comment on above: Non- GFR Calc Platelets bldOrdered By: Dr. Fernandez on 08-14-2022 Platelets (Bld) [#/Vol] 243 10*3/uL 150-450 [facility] Serum [id number] measu rement by electrophoresisOrdered By: Markel Sarabia on 08-14-2022 Alpha 1 globulin Elph [Mass/Vol] 0.3 g/dL 0.0-0.4 [facility] Alpha 1 globulin Elph [Mass/Vol] 0.6 g/dL 0.4-1.0 [facility] Serum classic neutrophil cyt oplasmic antibody assay (units/volume)Ordered By: Markel Sarabia on 08-14-2022 Neutrophil cytoplasmic Ab.classic Qn (S) <1:20 titer Neg:<1:20 [facility] Serum globulin measurement ( mass/volume)Ordered By: Markel Sarabia on 08-14-2022 Globulin (S) [Mass/Vol] 2.6 g/dL 2.2-3.9 [facility] Serum or plasma IgA measurem ent (mass/volume)Ordered By: Markel Sarabia on 08-14-2022 IgA [Mass/Vol] 414 mg/dL 61-437 [facility] Serum or plasma IgG measurem ent (mass/volume)Ordered By: Markel Sarabia on 08-14-2022 IgG [Mass/Vol] 888 mg/dL [phone] [facility] Serum or plasma IgM measurem ent (mass/volume)Ordered By: Markel Sarabia on 08-14-2022 IgM [Mass/Vol] 65 mg/dL 20-172 [facility] Serum or plasma albumin sofya urement (mass/volume)Ordered By: Dr. Fernandez on 08-14-2022 Albumin [Mass/Vol] 2.2 g/dL 3.2-5.0 [facility] Serum or plasma albumin/glob ulin mass ratioOrdered By: Dr. Fernandez on 08-14-2022 Albumin/Globulin [Mass ratio] 0.8 {ratio} 0.9-2.4 [facility] Serum or plasma beta globuli n measurement by electrophoresis (mass/volume)Ordered By: Markel Sarabia on 08-14-2022 Beta globulin Elph [Mass/Vol] 0.8 g/dL 0.7-1.3 [facility] Serum or plasma calcium sofya urement (mass/volume)Ordered By: Dr. Fernandez on 08-14-2022 Calcium [Mass/Vol] 7.8 mg/dL 8.5-10.1 [facility] Serum or plasma creatinine m easurement (mass/volume)Ordered By: Dr. Fernandez on 08-14-2022 Creatinine [Mass/Vol] 1.05 mg/dL 0.70-1.30 [facility] Comment on above: The validity of the calculated GFR & GFRAA in patients over 70 years has not been determined. Clinical correlation is essential. Serum or plasma gamma globul in measurement by electrophoresis (mass/volume)Ordered By: Markel Sarabia on 08-14-2022 Gamma globulin Elph [Mass/Vol] 0.8 g/dL 0.4-1.8 [facility] Serum or plasma immunoelectr ophoresis interpretation (nominal result)Ordered By: Markel Sarabia on 08-14-2022 Interpretation IEP [Interp] Comment: . [facility] Comment on above: Presence of monoclon al protein is unclear at this time. Suggestrepeat in 3 to 6 months if clinically indicated. Serum or plasma urea nitroge n measurement (mass/volume)Ordered By: Dr. Fernandez on 08-14-2022 Urea nitrogen [Mass/Vol] 16 mg/dL 7-18 [facility] Serum perinuclear neutrophil cytoplasmic antibody titer by immunofluorescenceOrdered By: Markel Sarabia on 08-14-2022 Neutrophil cytoplasmic Ab.perinuclear IF (S) [Titer] <1:20 titer Neg:<1:20 [facility] Comment on above: The presence of posi tive fluorescence exhibiting P-ANCA orC-ANCA patterns alone is not specific for the diagnosis ofWegener's Granulomatosis (WG) or microscopic polyangiitis.Decisions about treatment should not be based solely onANCA IFA results. The [employer] ANCA Group Consensusrecommends follow up testing of positive sera with both GA-3 and MPO-ANCA enzyme immunoassays. As many as 5% serumsamples are positive only by EIA. Ref. AM J Clin [id number];111:507-513. Thin prep Papanicolaou smear with manual screeningOrdered By: Dr. Fernandez on 08-14-2022 Thin prep Papanicolaou smear with manual screening 9 U/L 15-37 [facility] Thin prep Papanicolaou smear with manual screening 4 5-15 [facility] Thin prep Papanicolaou smear with manual screeningOrdered By: Markel Sarabia on 08-14-2022 Thin prep Papanicolaou smear with manual screening 1.0 0.7-1.7 [facility] Total protein bloodOrdered B y: Markel Sarabia on 08-14-2022 Protein [Mass/Vol] 5.0 g/dL 6.0-8.5 [facility] Absolute lymphocyte countOrd ered By: Dr. Cantu on 08-13-2022 Lymphocytes Auto (Unsp spec) [#/Vol] 2.86 10*3/uL 0.83-4.51 [facility] Basophil percentageOrdered B y: Markel Sarabia on 08-13-2022 Basophil percentage < 0.2 AI 0.0-0.9 [facility] LDH [Catalytic activity/Vol] 144 U/L 87-241 [facility] Basophil percentageOrdered B y: Dr. Cantu on 08-13-2022 Lactate [Moles/Vol] 1.6 mmol/L 0.4-2.0 [facility] Basophil percentage 0 SEEN /hpf 0-5 [facility] Basophils/100 WBC (Bld) 0.1 % 0-1 [facility] Bilirubin [Mass/Vol] 0.70 mg/dL 0.20-1.00 [facility] Comment on above: For patients on eltr ombopag therapy, use of Dimension [place] TBIL is not recommended. Chloride [Moles/Vol] 110 mmol/L 98-107 [facility] Eosinophils/100 WBC (Bld) 2.3 % 0-5 [facility] Glucose [Mass/Vol] 152 mg/dL 74-106 [facility] Comment on above: Fasting Glucose resu lt greater than or equal to 126 mg/dL suggests DIABETES MELLITUS per A.D.A. criteria. Neutrophils (Bld) [#/Vol] 9.3 10*3/uL 2.0-7.7 [facility] Neutrophils/100 WBC (Bld) 66.4 % 47-70 [facility] Potassium [Moles/Vol] 4.4 mmol/L 3.5-5.1 [facility] Protein [Mass/Vol] 6.6 g/dL 6.4-8.2 [facility] Sodium [Moles/Vol] 140 mmol/L 136-145 [facility] WBC (Bld) [#/Vol] 14.1 10*3/uL 4.4-11.0 [facility] Bilirubin Test strip Ql (U)O rdered By: Dr. Cantu on 08-13-2022 Bilirubin Ql (U) Negative Negative [facility] Blood erythrocytes count (nu mber/volume)Ordered By: Dr. Cantu on 08-13-2022 RBC (Bld) [#/Vol] 4.74 10*6/uL 4.6-6.2 [facility] Blood hemoglobin measurement (mass/volume)Ordered By: Dr. Cantu on 08-13-2022 Hemoglobin (Bld) [Mass/Vol] 14.5 g/dL 13.0-16.5 [facility] Blood lymphocytes/100 leukoc ytesOrdered By: Dr. Cantu on 08-13-2022 Lymphocytes/100 WBC (Bld) 20.4 % 19-41 [facility] Blood monocytes/100 leukocyt esOrdered By: Dr. Cantu on 08-13-2022 Monocytes/100 WBC (Bld) 7.3 % 0-10 [facility] Blood platelet mean volumeOr dered By: Dr. Cantu on 08-13-2022 Platelet mean volume (Bld) [Entitic vol] 10.0 fL 6.2-12.0 [facility] Determination of erythrocyte mean corpuscular volume (MCV)Ordered By: Dr. Cantu on 08-13-2022 MCV (RBC) [Entitic vol] 94.7 fL 80-94 [facility] Erythrocyte sedimentation ra teOrdered By: Markel Sarabia on 08-13-2022 ESR (Bld) [Velocity] 38 mm/h 0-20 [facility] Hematocrit Auto (Bld) [Volum e fraction]Ordered By: Dr. Cantu on 08-13-2022 Hematocrit (Bld) [Volume fraction] 44.9 % 40-54 [facility] Ketones Test strip Ql (U)Ord ered By: Dr. Cantu on 08-13-2022 Ketones Ql (U) Negative Negative [facility] Laboratory - Chemistry and C hemistry - challengeOrdered By: Dr. Cantu on 08-13-2022 ALP [Catalytic activity/Vol] 152 U/L 45-117 [facility] ALT [Catalytic activity/Vol] 17 U/L 16-61 [facility] CO2 [Moles/Vol] 22.0 mmol/L 21.0-32.0 [facility] Globulin (S) [Mass/Vol] 3.7 g/dL 2.2-4.2 [facility] Lipase [Catalytic activity/Vol] 245 U/L 73-393 [facility] Urea nitrogen/Creatinine [Mass ratio] 16.0 mg/mg 10-20 [facility] Laboratory - Drug toxicology Ordered By: Dr. Cantu on 08-13-2022 Amphetamines Ql (U) Negative <1000 ng/mL [facility] Benzodiazepines Ql (U) Negative < 200 ng/mL [facility] Cannabinoids Screen Ql (U) Negative < 50 ng/mL [facility] Cocaine Ql (U) Negative < 300 ng/mL [facility] Opiates Ql (U) Positive < 300 ng/mL [facility] Laboratory - Hematology and Cell countsOrdered By: Dr. Cantu on 08-13-2022 Erythrocyte distribution width (RBC) [Entitic vol] 51.3 fL 35.1-43.9 [facility] Erythrocyte distribution width (RBC) [Ratio] 14.6 % 11.6-14.6 [facility] Immature granulocytes/100 WBC (Bld) 3.500 % 0.0-0.9 [facility] Comment on above: IG% - Immature Granu locytes (promyelocytes, myelocytes and metamyelocytes) > 1% indicates that a LEFT SHIFT is Present. MCH (RBC) [Entitic mass] 30.6 pg 27.0-32.0 [facility] Nucleated RBC/100 WBC (Bld) [Ratio] 0 % 0-5 [facility] MCHC Auto (RBC) [Mass/Vol]Or dered By: Dr. Cantu on 08-13-2022 MCHC (RBC) [Mass/Vol] 32.3 g/dL 32-36 [facility] Mucus LM Ql (Urine sed)Order ed By: Dr. Cantu on 08-13-2022 Mucus Ql (Urine sed) 0 SEEN /hpf [facility] Nitrite Test strip Ql (U)Ord ered By: Dr. Cantu on 08-13-2022 Nitrite Ql (U) Negative Negative [facility] No Panel InformationOrdered By: Markel Sarabia on 08-13-2022 Centromere B Antibody <0.2 AI 0.0-0.9 [facility] [employer]ER Antibody <0.2 AI 0.0-0.9 [facility] No Panel InformationOrdered By: Dr. Cantu on 08-13-2022 MDMA (Ecstasy) Screen Negative < 500 ng/mL [facility] Urine Barbiturates Screen Negative < 200 ng/mL [facility] Urine Drug Screen Comment [facility] Comment on above: CONFIRMATORY TESTING FOR ALL POSITIVE URINE DRUG SCREENRESULTS WILL ONLY BE SENT OUT UPON PHYSICIAN ORDER. VISTA Urine Drug Screen methods provide only preliminaryanalytical test results. A more specific alternate chemicalmethod must be used in order to obtain a confirmedanalytical result. Gas chromatography/mass spectrometery(GC/MS) is the preferred confirmatory method. Clinicalconsideration and professional judgement should be appliedto any drug of abuse test result, particularly whenpreliminary positive results are used. URINE TCA TESTING MUST BE ORDERED SEPARATELY. USE TESTMNEMONIC: [facility] Urine Methadone Screen Negative < 300 ng/mL [facility] Estimated Creatinine Clearance Calc 61.08 ml/min [facility] Estimated GFR (MDRD) Amer 74 mL/min >60 [facility] Comment on above: GFR Calc Estimated GFR (MDRD) Non-Af Amer 61 mL/min >60 [facility] Comment on above: Non- GFR Calc Troponin I High Sensitivity 14 pg/mL 3.0-78.0 [facility] Comment on above: Please Note: [place] Units and Gender Specific Reference Ranges. For more information see Policy Stat Procedure [place] High Sensitivity Troponin (TNIH) and attachments. Platelets bldOrdered By: Dr. Cantu on 08-13-2022 Platelets (Bld) [#/Vol] 292 10*3/uL 150-450 [facility] Protein Test strip Ql (U)Ord ered By: Dr. Cantu on 08-13-2022 Protein Ql (U) 15 mg/dl Negative [facility] Serum DNA double strand anti body assay (units/volume)Ordered By: Markel Sarabia on 08-13-2022 DNA double strand Ab Qn (S) [IU]/mL 0-9 [facility] Comment on above: Negative <5 Equivoca l 5 - 9 Positive >9 Serum Brynn-1 antibody assay (u nits/volume)Ordered By: Markel Sarabia on 08-13-2022 Brynn-1 extractable nuclear Ab Qn (S) <0.2 AI 0.0-0.9 [facility] Serum Scl-70 extractable nuc lear antibody assay (units/volume)Ordered By: Markel Sarabia on 08-13-2022 SCL-70 extractable nuclear Ab Qn (S) <0.2 AI 0.0-0.9 [facility] Serum Gao extractable nucl ear antibody detectionOrdered By: Markel Sarabia on 08-13-2022 Gao extractable nuclear Ab Ql (S) <0.2 AI 0.0-0.9 [facility] Serum or plasma C reactive p rotein measurement (mass/volume)Ordered By: Markel Sarabia on 08-13-2022 CRP [Mass/Vol] 41.00 mg/L 0.0-3.0 [facility] Comment on above: C-Reactive Protein ( CRP) provides useful information for thediagnosis, therapy and monitoring of inflammatory processesand associated diseases. For the evaluation of Relative Riskfor Cardiovascular Disease, a High Sensitivity CRP (HSCRP)should be ordered. Serum or plasma albumin sofya urement (mass/volume)Ordered By: Dr. Cantu on 08-13-2022 Albumin [Mass/Vol] 2.9 g/dL 3.2-5.0 [facility] Serum or plasma albumin/glob ulin mass ratioOrdered By: Dr. Cantu on 08-13-2022 Albumin/Globulin [Mass ratio] 0.8 {ratio} 0.9-2.4 [facility] Serum or plasma calcium sofya urement (mass/volume)Ordered By: Dr. Cantu on 08-13-2022 Calcium [Mass/Vol] 8.7 mg/dL 8.5-10.1 [facility] Serum or plasma creatinine m easurement (mass/volume)Ordered By: Dr. Cantu on 08-13-2022 Creatinine [Mass/Vol] 1.25 mg/dL 0.70-1.30 [facility] Comment on above: The validity of the calculated GFR & GFRAA in patients over 70 years has not been determined. Clinical correlation is essential. Serum or plasma urea nitroge n measurement (mass/volume)Ordered By: Dr. Cantu on 08-13-2022 Urea nitrogen [Mass/Vol] 20 mg/dL 7-18 [facility] Squamous epithelial cells de tection in urine sediment by light microscopyOrdered By: Dr. Cantu on 08-13-2022 Epithelial cells.squamous LM Ql (Urine sed) 0 SEEN /hpf 0-5 [facility] Thin prep Papanicolaou smear with manual screeningOrdered By: Dr. Cantu on 08-13-2022 Thin prep Papanicolaou smear with manual screening 12 U/L 15-37 [facility] Thin prep Papanicolaou smear with manual screening 8 5-15 [facility] Urine blood detectionOrdered By: Dr. Cantu on 08-13-2022 RBC Ql (U) Negative Negative [facility] RBC Ql (U) 0 SEEN /hpf 0-5 [facility] Urine clarityOrdered By: Dr. Cantu on 08-13-2022 Clarity (U) Clear Clear [facility] Urine color determinationOrd ered By: Dr. Cantu on 08-13-2022 Color (U) Yellow Yellow [facility] Urine glucose detectionOrder ed By: Dr. Cantu on 08-13-2022 Glucose Ql (U) Normal mg/dl Normal [facility] Urine leukocyte esterase det ection by dipstickOrdered By: Dr. Cantu on 08-13-2022 Leukocyte esterase Test strip Ql (U) 25 /ul Negative [facility] Urine pHOrdered By: Dr. Juanito harvey on 08-13-2022 pH (U) 5.0 [pH] 5.0 - 8.0 [facility] Urine phencyclidine (PCP) de tectionOrdered By: Dr. Cantu on 08-13-2022 Phencyclidine Ql (U) Negative < 25 ng/mL [facility] Urine sediment bacteria coun t by microscopy (number/high power field)Ordered By: Dr. Cantu on 08-13-2022 Bacteria LM.HPF (Urine sed) [#/Area] 0 /[HPF] None Seen [facility] Urine specific gravity measu rementOrdered By: Dr. Cantu on 08-13-2022 Specific gravity (U) [Rel density] 1.015 1.002-1.030 [facility] Urobilinogen Auto test strip Ql (U)Ordered By: Dr. Cantu on 08-13-2022 Urobilinogen Ql (U) Normal mg/dl Normal [facility] Basophil percentageon 2021 Creatinine [Mass/Vol] 1.4 mg/dL 0.70-1.30 [facility] Work Phone: Laboratory - Chemistry and C hemistry - challengeon 02-20-2022 GFR/1.73 sq M.predicted among non-blacks MDRD (S/P/Bld) [Vol rate/Area] 56.0000 mL/min/{1.73_m2} >60 [facility] Work Phone: Absolute lymphocyte counton 01-17-2022 Lymphocytes Auto (Unsp spec) [#/Vol] 2.87 10*3/uL 0.83-4.51 [facility] Work Phone: Basophil percentageon 2021 Basophil percentage 0 SEEN /hpf 0-5 [facility] Work Phone: Bilirubin [Mass/Vol] 0.50 mg/dL 0.20-1.00 [facility] Work Phone: Comment on above: For patients on eltr ombopag therapy, use of Dimension [place] TBIL is not recommended. Lactate [Moles/Vol] 1.7 mmol/L 0.4-2.0 [facility] Work Phone: Protein [Mass/Vol] 7.0 g/dL 6.4-8.2 [facility] Work Phone: Basophils/100 WBC (Bld) 0.9 % 0-1 [facility] Work Phone: Chloride [Moles/Vol] 110 mmol/L 98-107 [facility] Work Phone: Eosinophils/100 WBC (Bld) 4.2 % 0-5 [facility] Work Phone: Glucose [Mass/Vol] 128 mg/dL 74-106 [facility] Work Phone: Comment on above: Fasting Glucose resu lt greater than or equal to 126 mg/dL suggests DIABETES MELLITUS per A.D.A. criteria. Neutrophils (Bld) [#/Vol] 5.9 10*3/uL 2.0-7.7 [facility] Work Phone: Neutrophils/100 WBC (Bld) 58.5 % 47-70 [facility] Work Phone: Potassium [Moles/Vol] 4.7 mmol/L 3.5-5.1 [facility] Work Phone: Sodium [Moles/Vol] 137 mmol/L 136-145 [facility] Work Phone: WBC (Bld) [#/Vol] 10.1 10*3/uL 4.4-11.0 [facility] Work Phone: Bilirubin Test strip Ql (U)o n 01-17-2022 Bilirubin Ql (U) Negative Negative [facility] Work Phone: Blood erythrocytes count (nu mber/volume)on 01-17-2022 RBC (Bld) [#/Vol] 4.47 10*6/uL 4.6-6.2 [facility] Work Phone: Blood hemoglobin measurement (mass/volume)on 01-17-2022 Hemoglobin (Bld) [Mass/Vol] 14.0 g/dL 13.0-16.5 [facility] Work Phone: Blood lymphocytes/100 leukoc yteson 01-17-2022 Lymphocytes/100 WBC (Bld) 28.3 % 19-41 [facility] Work Phone: Blood monocytes/100 leukocyt eson 01-17-2022 Monocytes/100 WBC (Bld) 6.9 % 0-10 [facility] Work Phone: Blood platelet mean volumeon 01-17-2022 Platelet mean volume (Bld) [Entitic vol] 9.1 fL 6.2-12.0 [facility] Work Phone: Determination of erythrocyte mean corpuscular volume (MCV)on 01-17-2022 MCV (RBC) [Entitic vol] 95.1 fL 80-94 [facility] Work Phone: Direct bilirubinon 2 Bilirubin.direct [Mass/Vol] 0.15 mg/dL 0.00-0.30 [facility] Work Phone: Hematocrit Auto (Bld) [Volum e fraction]on 01-17-2022 Hematocrit (Bld) [Volume fraction] 42.5 % 40-54 [facility] Work Phone: Ketones Test strip Ql (U)on 01-17-2022 Ketones Ql (U) Negative Negative [facility] Work Phone: Laboratory - Chemistry and C hemistry - challengeon 01-17-2022 ALP [Catalytic activity/Vol] 167 U/L 45-117 [facility] Work Phone: ALT [Catalytic activity/Vol] 18 U/L 16-61 [facility] Work Phone: Globulin (S) [Mass/Vol] 4.1 g/dL 2.2-4.2 [facility] Work Phone: CO2 [Moles/Vol] 22.0 mmol/L 21.0-32.0 [facility] Work Phone: Urea nitrogen/Creatinine [Mass ratio] 13.0 mg/mg 10-20 [facility] Work Phone: Laboratory - Hematology and Cell countson 01-17-2022 Erythrocyte distribution width (RBC) [Entitic vol] 48.8 fL 35.1-43.9 [facility] Work Phone: Erythrocyte distribution width (RBC) [Ratio] 13.9 % 11.6-14.6 [facility] Work Phone: [phone] Immature granulocytes/100 WBC (Bld) 1.200 % 0.0-0.9 [facility] Work Phone: Comment on above: IG% - Immature Granu locytes (promyelocytes, myelocytes and metamyelocytes) > 1% indicates that a LEFT SHIFT is Present. MCH (RBC) [Entitic mass] 31.3 pg 27.0-32.0 [facility] Work Phone: Nucleated RBC/100 WBC (Bld) [Ratio] 0 % 0-5 [facility] Work Phone: MCHC Auto (RBC) [Mass/Vol]on 01-17-2022 MCHC (RBC) [Mass/Vol] 32.9 g/dL 32-36 [facility] Work Phone: Mucus LM Ql (Urine sed)on Mucus Ql (Urine sed) 0 SEEN /hpf [facility] Work Phone: Nitrite Test strip Ql (U)on 01-17-2022 Nitrite Ql (U) Negative Negative [facility] Work Phone: No Panel Informationon 01-17 Troponin I High Sensitivity 15 pg/mL 3.0-78.0 [facility] Work Phone: Comment on above: Please Note: [place] Units and Gender Specific Reference Ranges. For more information see Policy Stat Procedure [place] High Sensitivity Troponin (TNIH) and attachments. Estimated Creatinine Clearance Calc 57.27 ml/min [facility] Work Phone: Estimated GFR (MDRD) Amer 70 mL/min >60 [facility] Work Phone: Comment on above: GFR Calc Estimated GFR (MDRD) Non-Af Amer 58 mL/min >60 [facility] Work Phone: Comment on above: Non- GFR Calc Platelets bldon 01-17-2022 Platelets (Bld) [#/Vol] 296 10*3/uL 150-450 [facility] Work Phone: Protein Test strip Ql (U)on 01-17-2022 Protein Ql (U) Negative Negative [facility] Work Phone: Serum or plasma albumin sofya urement (mass/volume)on 01-17-2022 Albumin [Mass/Vol] 2.9 g/dL 3.2-5.0 [facility] Work Phone: Serum or plasma calcium sofya urement (mass/volume)on 01-17-2022 Calcium [Mass/Vol] 8.9 mg/dL 8.5-10.1 [facility] Work Phone: Serum or plasma creatinine m easurement (mass/volume)on 01-17-2022 Creatinine [Mass/Vol] 1.31 mg/dL 0.70-1.30 [facility] Work Phone: Comment on above: The validity of the calculated GFR & GFRAA in patients over 70 years has not been determined. Clinical correlation is essential. Serum or plasma urea nitroge n measurement (mass/volume)on 01-17-2022 Urea nitrogen [Mass/Vol] 17 mg/dL 7-18 [facility] Work Phone: Squamous epithelial cells de tection in urine sediment by light microscopyon 01-17-2022 Epithelial cells.squamous LM Ql (Urine sed) 0 SEEN /hpf 0-5 [facility] Work Phone: Thin prep Papanicolaou smear with manual screeningon 01-17-2022 Thin prep Papanicolaou smear with manual screening 14 U/L 15-37 [facility] Work Phone: Thin prep Papanicolaou smear with manual screening 5 5-15 [facility] Work Phone: Urine blood detectionon 12-30 RBC Ql (U) Negative Negative [facility] Work Phone: RBC Ql (U) 0 SEEN /hpf 0-5 [facility] Work Phone: Urine clarityon 01-17-2022 Clarity (U) Clear Clear [facility] Work Phone: Urine color determinationon 01-17-2022 Color (U) Yellow Yellow [facility] Work Phone: Urine glucose detectionon Glucose Ql (U) Normal mg/dl Normal [facility] Work Phone: Urine leukocyte esterase det ection by dipstickon 01-17-2022 Leukocyte esterase Test strip Ql (U) Negative Negative [facility] Work Phone: Urine pHon 01-17-2022 pH (U) 5.0 [pH] 5.0 - 8.0 [facility] Work Phone: Urine sediment bacteria coun t by microscopy (number/high power field)on 01-17-2022 Bacteria LM.HPF (Urine sed) [#/Area] 0 /[HPF] None Seen [facility] Work Phone: Urine specific gravity measu rementon 01-17-2022 Specific gravity (U) [Rel density] 1.020 1.002-1.030 [facility] Work Phone: Urobilinogen Auto test strip Ql (U)on 01-17-2022 Urobilinogen Ql (U) Normal mg/dl Normal [facility] Work Phone: Absolute lymphocyte counton 12-31-2021 Lymphocytes Auto (Unsp spec) [#/Vol] 2.95 10*3/uL 0.83-4.51 [facility] Work Phone: Basophil percentageon 2021 Lactate [Moles/Vol] 2.3 mmol/L 0.4-2.0 [facility] Work Phone: Comment on above: Critical Result(s) C alled at: 01:30:42 12/31/2021 by: Nahun Lobato TEAM LEADER/RESEARCH PSYCHOLOGIST. Results read back by same. Amylase [Catalytic activity/Vol] 37 U/L 25-115 [facility] Work Phone: Basophils/100 WBC (Bld) 0.8 % 0-1 [facility] Work Phone: Bilirubin [Mass/Vol] 0.60 mg/dL 0.20-1.00 [facility] Work Phone: Comment on above: For patients on eltr ombopag therapy, use of Dimension [place] TBIL is not recommended. Chloride [Moles/Vol] 108 mmol/L 98-107 [facility] Work Phone: Eosinophils/100 WBC (Bld) 4.4 % 0-5 [facility] Work Phone: Glucose [Mass/Vol] 171 mg/dL 74-106 [facility] Work Phone: Comment on above: Fasting Glucose resu lt greater than or equal to 126 mg/dL suggests DIABETES MELLITUS per A.D.A. criteria. Neutrophils (Bld) [#/Vol] 5.1 10*3/uL 2.0-7.7 [facility] Work Phone: [phone] Neutrophils/100 WBC (Bld) 55.4 % 47-70 [facility] Work Phone: Potassium [Moles/Vol] 3.7 mmol/L 3.5-5.1 [facility] Work Phone: Protein [Mass/Vol] 7.4 g/dL 6.4-8.2 [facility] Work Phone: [phone] Sodium [Moles/Vol] 137 mmol/L 136-145 [facility] Work Phone: WBC (Bld) [#/Vol] 9.1 10*3/uL 4.4-11.0 [facility] Work Phone: Blood erythrocytes count (nu mber/volume)on 12-31-2021 RBC (Bld) [#/Vol] 4.66 10*6/uL 4.6-6.2 [facility] Work Phone: Blood hemoglobin measurement (mass/volume)on 12-31-2021 Hemoglobin (Bld) [Mass/Vol] 14.1 g/dL 13.0-16.5 [facility] Work Phone: [phone] Blood lymphocytes/100 leukoc yteson 12-31-2021 Lymphocytes/100 WBC (Bld) 32.4 % 19-41 [facility] Work Phone: [phone] Blood monocytes/100 leukocyt eson 12-31-2021 Monocytes/100 WBC (Bld) 5.7 % 0-10 [facility] Work Phone: Blood platelet mean volumeon 12-31-2021 Platelet mean volume (Bld) [Entitic vol] 9.4 fL 6.2-12.0 [facility] Work Phone: Determination of erythrocyte mean corpuscular volume (MCV)on 12-31-2021 MCV (RBC) [Entitic vol] 95.7 fL 80-94 [facility] Work Phone: Hematocrit Auto (Bld) [Volum e fraction]on 12-31-2021 Hematocrit (Bld) [Volume fraction] 44.6 % 40-54 [facility] Work Phone: Laboratory - Chemistry and C hemistry - challengeon 12-31-2021 ALP [Catalytic activity/Vol] 178 U/L 45-117 [facility] Work Phone: ALT [Catalytic activity/Vol] 14 U/L 16-61 [facility] Work Phone: CO2 [Moles/Vol] 24.0 mmol/L 21.0-32.0 [facility] Work Phone: Globulin (S) [Mass/Vol] 4.4 g/dL 2.2-4.2 [facility] Work Phone: Lipase [Catalytic activity/Vol] 312 U/L 73-393 [facility] Work Phone: Urea nitrogen/Creatinine [Mass ratio] 10.6 mg/mg 10-20 [facility] Work Phone: Laboratory - Hematology and Cell countson 12-31-2021 Erythrocyte distribution width (RBC) [Entitic vol] 49.1 fL 35.1-43.9 [facility] Work Phone: Erythrocyte distribution width (RBC) [Ratio] 13.9 % 11.6-14.6 [facility] Work Phone: Immature granulocytes/100 WBC (Bld) 1.300 % 0.0-0.9 [facility] Work Phone: Comment on above: IG% - Immature Granu locytes (promyelocytes, myelocytes and metamyelocytes) > 1% indicates that a LEFT SHIFT is Present. MCH (RBC) [Entitic mass] 30.3 pg 27.0-32.0 [facility] Work Phone: Nucleated RBC/100 WBC (Bld) [Ratio] 0 % 0-5 [facility] Work Phone: MCHC Auto (RBC) [Mass/Vol]on 12-31-2021 MCHC (RBC) [Mass/Vol] 31.6 g/dL 32-36 [facility] Work Phone: No Panel Informationon 12-31 Estimated Creatinine Clearance Calc 52.84 ml/min [facility] Work Phone: Estimated GFR (MDRD) Amer 64 mL/min >60 [facility] Work Phone: Comment on above: GFR Calc Estimated GFR (MDRD) Non-Af Amer 53 mL/min >60 [facility] Work Phone: Comment on above: Non- GFR Calc Platelets bldon 12-31-2021 Platelets (Bld) [#/Vol] 350 10*3/uL 150-450 [facility] Work Phone: Serum or plasma albumin sofya urement (mass/volume)on 12-31-2021 Albumin [Mass/Vol] 3.0 g/dL 3.2-5.0 [facility] Work Phone: Serum or plasma albumin/glob ulin mass ratioon 12-31-2021 Albumin/Globulin [Mass ratio] 0.7 {ratio} 0.9-2.4 [facility] Work Phone: Serum or plasma calcium sofya urement (mass/volume)on 12-31-2021 Calcium [Mass/Vol] 8.7 mg/dL 8.5-10.1 [facility] Work Phone: Serum or plasma creatinine m easurement (mass/volume)on 12-31-2021 Creatinine [Mass/Vol] 1.42 mg/dL 0.70-1.30 [facility] Work Phone: Comment on above: The validity of the calculated GFR & GFRAA in patients over 70 years has not been determined. Clinical correlation is essential. Serum or plasma urea nitroge n measurement (mass/volume)on 12-31-2021 Urea nitrogen [Mass/Vol] 15 mg/dL 7-18 [facility] Work Phone: Thin prep Papanicolaou smear with manual screeningon 12-31-2021 Thin prep Papanicolaou smear with manual screening 13 U/L 15-37 [facility] Work Phone: Thin prep Papanicolaou smear with manual screening 5 5-15 [facility] Work Phone: ALLIED HEALTHon 02-02-2019 ALLIED HEALTH HNO ID: [id number] Author: Diane LomeliRn) GERONIMO Avery Service: ? Author Type: Registered Nurse Type: Allied Health Filed: 02/02/2019 9:44 AM Note Text: CARDIAC REHABILITATION PATIENT EDUCATION PROGRESS NOTE Name: Chey Walker Date of Service: 02/02/19 Time of Service: 938 ASSESSMENT: Risk Factors Identified: Age Family History Gender Hypertension Obesity Smoker: # of packs per day: smoke over 40 years. Total Years of Smokin years. RECOMMENDATIONS: Patient interested in Phase II Outpatient Cardiac Rehab: Yes. Facility Preferred: [facility] DIAGNOSIS: Percutaneous Cardiac Intervention: to treat medically PCI Teaching Points: -Smoking Advice Counseling -When patient should call provider READINESS TO LEARN: Cognitive Ability: Alert and Oriented Motivation to Learn: Reluctant Family Support: None - Unavailable/disintereste d Instruction Provided To: Family member Patient Learns Best By: Written Instruction - Hand-outs and Verbal Instruction Factors Affecting Learning: None Physical Limitations Affecting Learning: None LEARNING RESPONSE: Method Of Instruction: Written instruction - handouts Verbal instruction Patient/Family Response: Verbalizes understanding of: cardiac rehab phase 2, pt only willing to go to [facility], advised pt to call [facility] for pending dates Follow-up Plan: No further educational needs identified at this time. Instructional Aids Used: Cardiac Rehabilitation Brochure Signature: Diane Avery RN Pager: [phone] Date: February 02, 2019 Time: 9:38 AM [facility] NURSING PROGon 02-02-2019 NURSING PROG HNO ID: [id number] Author: Fidel LomeliRn) GERONIMO Woodruff Service: Nursing Author Type: Registered Nurse Type: Nursing Progress Note Filed: 02/02/2019 12:59 AM Note Text: Pt took off residential monitor, bp cuff and pulse ox. States he can't sleep with on. After explaining CVICU policy, pt would like to refuse to wear monitor tonight. States he will let me put Back on in morning. Pt is A/Ox3, pleasant but unwilling to wear tele rest of night. [facility] NUTRITIONon 02-02-2019 NUTRITION HNO ID: [id number] Author: Daniella Louie RD Service: Nutrition Therapy Author Type: Registered Dietitian Type: Nutrition Filed: 02/02/2019 1:36 PM Note Text: NUTRITION THERAPY PATIENT EDUCATION SERVICE DATE: 02/02/2019 SERVICE TIME: 1:35 PM TOPIC: Cardiac Rehab: Therapeutic Lifestyle Changes (TLC) Diagnosis: ADULT: Coronary Artery Disease READINESS TO LEARN Cognitive Ability: Alert and oriented Motivation to Learn: Interested Family Support: Unable to assess - Family not present Instruction Provided to: Patient Patient Learns Best by: Multiple Methods Factors Affecting Learning: None Physical Limitations Affecting Learning: None LEARNING RESPONSE Patient / Family Response: Verbalizes understanding of Heart Healthy (CTS) Diet: Consuming 30% or less calories from fat, of which no more than 7% are saturated fat calories; no more than 200 mg cholesterol/day; and 2 grams of sodium Method of Instruction: Written instruction - handouts Verbal instruction Instructional Aids Used: Mediterranean Diet Supplemental Material Provided to Patient: None Follow-Up Plan: Contact information given. Referral (Recommendation): Primary Care Provider MNT Billing: Initial Assess/15 min 2 units SIGNATURE: Daniella Louie RD, LD PATIENT NAME: Chey Walker DATE: February 02, 2019 TIME: 1:35 PM PAGER: [phone] [facility] PLAN OF CAREon 02-02-2019 PLAN OF CARE HNO ID: [id number] Author: Leela Gao (frooly) Service: Pharmacy Author Type: ? Type: Plan of Care Filed: 02/02/2019 11:47 AM Note Text: PROJECT LEADER BEDSIDE DELIVERY SURVEY 1. Patient to use [facility] Bedside Delivery - N/A Insurance Information as follows: 2. Insurance card on file - N/A 3. Credit card for payment - N/A Please call pharmacy bedside delivery at [phone] or [phone] if patient would like medications filled and delivered prior to discharge. Leela Gao (Public Finance Specialist) [facility] PLAN OF CARE HNO ID: [id number] Author: Mitzi Walls (Pharmacist) Service: ? Author Type: Pharmacist Type: Plan of Care Filed: 02/02/2019 12:24 PM Note Text: MEDICATION HISTORY Patient Name:Laurie Walker : 1955 Source of history:Patient: Reliability of source: Appears reliable, clearly identified: Medication name, Medication dose, Medication frequency and Timing of last dose and Pharmacy records: [facility] via Epic fill history Medication Nonadherence Identified: No barriers noted The above information represents the best possible medication history: Yes Additional comments: Hdqve-hw-Hajxuxpfm Medication List Adjustments: Medication Regimen Changes: N/a Medications Added: Unable to add these to list as patient was being discharged. However, the following are home medications: ASA 81 mg once daily Clopidogrel 75 mg once daily Meloxicam 15 mg once daily Cyclobenzaprine 10 mg TID PRN muscle spasm Medications Removed: N/a Short-Term Medications: Cyclobenzaprine was only prescribed for a 5 day supply Further Clarification Required: N/a Patient is a 30 day readmission: No Patient Interested in Bedside Delivery: No Time Spent Reviewing Patient's Medications: 30 minutes MEDICATION RECONCILIATION - Milton Mckenzie; February 02, 2019 12:24 PM Reconciliation: Yes All PROCESSOR [employer]LLANT medications addressed by LIP Additional comments: N/A Allergies: ALLERGIES Allergen Reactions - Sulfa (Sulfonamide * Unknown Preferred Pharmacy: [facility] ([phone]) Current [employer] Medications: Prior to Admission medications as of 01/30/192050 Medication Sig Last Dose Taking aspirin, enteric coated (ASPIRIN, ENTERIC COATED) 81 mg EC tablet Take 1 tablet by mouth once daily. Yes clopidogrel (PLAVIX) 75 mg tablet Take 1 tablet by mouth once daily. Yes metoprolol tartrate, short acting, (LOPRESSOR) 25 mg tablet Take 1 tablet by mouth every 12 hours. New this admission pantoprazole DR (PROTONIX) 40 mg tablet Take 1 tablet by mouth DAILY (6 AM). New this admission atorvastatin (LIPITOR) 80 mg tablet Take 1 tablet by mouth once daily. Duplicate atorvastatin (LIPITOR) 80 mg tablet Take 1 tablet by mouth daily at bedtime. New this admission Milton Mckenzie February 02, 2019 11:47 AM [facility] PROGRESSon 02-02-2019 PROGRESS HNO ID: [id number] Author: Michel Figueroa Service: Cardiovascular Medicine Author Type: Physician Type: Progress Notes Filed: 02/02/2019 1:53 PM Note Text: Cardiovascular Intensive Care Unit Progress Note SERVICE DATE: 02/02/2019 SERVICE TIME: 8:31 REASON FOR CONSULT: Nstemi ADMITTING PROVIDER: Wes Navarro Admission Date: January 30, 2019 AGE: [age] year old LOS: 3 days Subjective A 63 year old male with past medical history of History Coronary Artery Disease status post 3 vessels Coronary Artery Bypass Graft ( he follows up at [facility] with dr mathur.) on 2000 History Coronary Artery Disease status post 3 stents ( on 08/2017) ( one stent in LAD, D1 and Lcx) PVD status post stents on Clopidogrel AAA status post open repair on 1994 Presented from [facility] as he presented to the Emergency Department complaining of chest pain . He described the pain as a [place] sensation 7/10 in intensity in the retrosternal region with radiation to the neck . Patient has been complaining of chest pain for a week and he saw his primary care physician and it was thought to be reflux but the patient continued to have chest pain for that reason he went today to [facility]. From what he tells me, the pain occured with exertion, and was relieved went down from 6/10 to 0/10 after starting him on Nitroglycerin drip On further questioning, he admitted that this is associated with Shortness of Breath without Sweating / diaphoresis, Palpitations, Lightheadedness / dizziness, Nausea and Syncope. At present, the patient is chest pain free. In [facility] he found to have NSTEMI and started on heparin drip, his complete blood count was unremarkable and Chest X-ray within normal limits, his troponin is at 2.78 then patient was transferred to our Cardiovascular Intensive Care Unit for further management Patient had problems from before in access when they tried to do LHC from the groin Interval History 02/02/2019 Patient had heart cath yesterday through left ulnar artery. Objective REVIEW OF SYSTEMS CONSTITUTIONAL: No fevers, chills, nightsweats, unintended weight loss HEENT: Denies frequent or severe heaches, nasal congestion/sinus symptoms, problematic allergy problems. EYES: No diplopia or blurry vision. CARDIOVASCULAR: No palpitations, orthopnea, paroxysmal nocturnal dyspnea GI: No dysphagia/odynophagia, problematic reflux, constipation, diarrhea, changes in stool habits, hematochezia, melena. : No new urinary complaints, including dysuria, gross hematuria or pyuria. NEURO: No new balance problems, peripheral weakness/paresthesias or numbness of concern. MUSC-SKEL: No new joint pain, swelling, or erythema. PSY: No concerns regarding depression, anxiety or panic. INTEGUMENTARY: No new skin changes (rash, new or changing mole, new growth) No family history on file. PROBLEMS: ACTIVE PROBLEM LIST Nstemi (Non-St Elevated Myocardial Infarction) (Hcc) Nicotine use disorder, F17.2 No past medical history on file. No past surgical history on file. Social History Socioeconomic History Marital status: Spouse name: Not on file Number of children: Not on file Years of education: Not on file Highest education level: Not on file Occupational History Not on file Social Needs Financial resource strain: Not on file Food insecurity: Worry: Not on file Inability: Not on file Transportation needs: Medical: Not on file Non-medical: Not on file Tobacco Use Smoking status: Not on file Substance and Sexual Activity Alcohol use: Not on file Drug use: Not on file Sexual activity: Not on file Lifestyle Physical activity: Days per week: Not on file Minutes per session: Not on file Stress: Not on file Relationships Social connections: Talks on phone: Not on file Gets together: Not on file Attends holiness service: Not on file Active member of club or organization: Not on file Attends meetings of clubs or organizations: Not on file Relationship status: Not on file Intimate partner violence: Fear of current or ex partner: Not on file Emotionally abused: Not on file Physically abused: Not on file Forced sexual activity: Not on file Other Topics Concerns: Not on file Social History Narrative Not on file VITAL SIGNS (last 24hrs min/max): No data recorded No data recorded No data recorded Cuff No data recorded Vital signs reviewed. BP 130/64 Pulse 86 Temp (Src) 97.5 (Temporal) Resp 20 Ht 5' 10.028 (1.78m) Wt 202 lb 13.2 oz (92.0kg) SpO2 96% BMI 29.07 kg/(m2). Temp (24hrs), Av.3 ?C (97.4 ?F), Min:36.1 ?C (97 ?F), Max:36.8 ?C (98.2 ?F) NET FLUID BALANCE Intake/Output Summary (Last 24 hours) at 02/02/2019 0831 Last data filed at 02/02/2019 0700 Gross per 24 hour Intake 450 ml Output 1560 ml Net -1110 ml MEDICATIONS Current Facility-Administered Medications Medication Dose Route Frequency - atorvastatin 40 mg tab(s) (LIPITOR) 40 mg ORAL AT BEDTIME - nitroglycerin sublingual 0.4 mg tab(s) (NITROQUICK) 0.4 mg SUBLINGUAL q 5 MIN PRN - atropine 0.4 mg injection 0.4 mg INTRAVENOUS PRN(NO DISPENSE) - clopidogrel 75 mg tab(s) (PLAVIX) 75 mg ORAL DAILY - pantoprazole DR 40 mg tab(s) (PROTONIX) 40 mg ORAL DAILY (6 AM) - morphine 2-4 mg injection 2-4 mg INTRAVENOUS q 4 H PRN - metoprolol tartrate (short acting) 25 mg tab(s) (LOPRESSOR) 25 mg ORAL q 12 H - potassium chloride 80-120 mEq oral liquid 80-120 mEq ORAL/FEEDING TUBE PRN - potassium chloride iv piggyback 20 mEq/100 mL 20 mEq INTRAVENOUS PRN - magnesium sulfate in water 2 g in sterile water 50 ml 2 g INTRAVENOUS PRN - sodium phosphate 45 mmol in NaCl 0.9% 250 mL 45 mmol INTRAVENOUS PRN - calcium gluconate 4 g in NaCl 0.9% 250 mL 4 g INTRAVENOUS PRN - NaCl 0.9% 2-10 mL 2-10 mL INTRAVENOUS q 12 H - nitroglycerin sublingual 0.4 mg tab(s) (NITROQUICK) 0.4 mg SUBLINGUAL q 5 MIN PRN - atropine 0.4 mg injection 0.4 mg INTRAVENOUS PRN(NO DISPENSE) - aspirin, enteric coated 81 mg tab(s) 81 mg ORAL DAILY - perflutren lipid microspheres 1.1 mg/mL 1.3 mL injection (DEFINITY) 1.3 mL INTRAVENOUS DIRECTED PRN - NaCl 0.9% iv infusion 75 mL/hr INTRAVENOUS CONTINUOUS - nitroglycerin 100 mg in D5W 250 mL 5-200 mcg/min INTRAVENOUS CONTINUOUS Lines, Drains, and Airways Line Peripheral 01/30/19 Assessment Short Right Antecubital 20 Gauge 3 days Peripheral 01/30/19 2100 Short Left Antecubital 20 Gauge 2 days PHYSICAL EXAM PERFORMED: GENERAL APPEARANCE: Calm, comfortable lying recumbent with the head of the bed elevated 30? breathing room air? HENT: Sinuses nontender. ?Nares without drainage. ?Pharynx without thrush. ?Mallampati class II airway with no tongue swelling or uvular edema EYES: ?Eyes without conjunctivitis. ?Pupils equal and reactive. ?Sclera white. Bilateral xanthelasma NECK: Unable to appreciate JVP CVS: Normal s1, s2 no added sounds LUNGS: ?Breathing room air with a saturation of 95%. ?RR 14 without tripoding, splinting, pursed lip breathing or active abdominal expiratory phase. ?Expiratory wheezes bilaterally ABDOMEN: ?Soft, nontender and without active expiratory phase. MUSCULOSKELETAL: ?Symmetric tone and strength that is 5/5 by MRC grading. +1 pitting ankle edema SKIN: Midline scar. Warmdry, pink without hives or dermatographia. ?No clubbing. ?Good capillary refill. NEURO: ?Alert and oriented ?3. ?Attention normal. ?Cranial nerves grossly normal. ?Nonfocal exam. ?Speech clear. ?No dysarthria EXTREMITIES: left ulnar cath site clean cry and intact, no bruit or hematoma formation evident, strength 5/5, no pallor Bedside Echocardiogram with basal hypokinesis with mildly reduced ejection fraction Respiratory/Nursing Documentation: O2 Therapy: Room Air (02/02/19 0800) HEMODYNAMIC DATA: Reviewed LABS: 12 lead EKG : Normal sinus rhythm with st depression in v4-v6 unchanged from before DATA: Diagnostic tests reviewed for today's visit, films/specimens were personally reviewed by me: Most recent labs and imaging results. LABS: Recent Labs 02/01/19 1130 02/01/19 0500 01/31/19 1120 01/31/19 0324 01/30/19 2100 TROPI -- -- -- 5.720* < > 7.660* -- 7.090* WBC -- 11.20* -- -- -- 7.87 -- 10.10* RBC -- 4.19* -- -- -- 4.69 -- 4.79 HB -- 13.2* -- -- -- 14.5 -- 15.0 HCT -- 40.1 -- -- -- 45.1 -- 45.5 MCV -- 95.7* -- -- -- 96.2* -- 95.0 PLT -- 275 -- -- -- 285 -- 277 GLUC -- 94 -- -- -- 108* < > -- BUN -- 18 -- -- -- 15 < > -- CREAT -- 1.25* -- -- -- 1.20* < > -- NA -- 137 -- -- -- 141 < > -- K -- 4.6 -- -- -- 4.3 < > -- CHLOR -- 106 -- -- -- 107 < > -- CO2 -- 24 -- -- -- 28 < > -- CA -- 8.0* -- -- -- 8.0* < > -- PTSEC -- -- -- -- -- -- -- 11.7 APTT 46.5* 61.8* < > -- < > 36.8* -- 87.9* INR -- -- -- -- -- -- -- 1.09 MG -- -- -- -- -- 2.3 -- 1.7 < > = values in this interval not displayed. Recent Labs 02/01/19 1130 02/01/19 0500 01/31/19 1120 01/31/19 0324 01/30/19 2100 TROPI -- -- -- 5.720* < > 7.660* -- 7.090* WBC -- 11.20* -- -- -- 7.87 -- 10.10* RBC -- 4.19* -- -- -- 4.69 -- 4.79 HB -- 13.2* -- -- -- 14.5 -- 15.0 HCT -- 40.1 -- -- -- 45.1 -- 45.5 MCV -- 95.7* -- -- -- 96.2* -- 95.0 MCH -- 31.5 -- -- -- 30.9 -- 31.3 MCHC -- 32.9 -- -- -- 32.2* -- 33.0 PLT -- 275 -- -- -- 285 -- 277 MPV -- 9.9 -- -- -- 10.0 -- 9.6 GLUC -- 94 -- -- -- 108* < > -- BUN -- 18 -- -- -- 15 < > -- CREAT -- 1.25* -- -- -- 1.20* < > -- NA -- 137 -- -- -- 141 < > -- K -- 4.6 -- -- -- 4.3 < > -- CHLOR -- 106 -- -- -- 107 < > -- CO2 -- 24 -- -- -- 28 < > -- CA -- 8.0* -- -- -- 8.0* < > -- PTSEC -- -- -- -- -- -- -- 11.7 APTT 46.5* 61.8* < > -- < > 36.8* -- 87.9* INR -- -- -- -- -- -- -- 1.09 MG -- -- -- -- -- 2.3 -- 1.7 < > = values in this interval not displayed. Assessment/Plan Acute non-ST segment Elevetion Myocardiac Infarction -Patient has a TRAVIS score of 5 -Bedside Echocardiogram with basal hypokinesis with mildly reduced ejection fraction -EKG showed sinus rythm ST depression in V4-V6 -LHC yesterday with extensive restenosis of stents, no revascularization attempted, medical management recommended -atorvastatin 80 mg BID, clinical evidence of hypercholesterolemia with xanthelasma -Continue with aspirin 81 mg daily -Continue Lopressor 25 mg BID - Plavix 75 mg - Protonix 40 mg - discharge today with cardiology follow up Midsternal burning chest pain -likely cardiac in nature, however, on protonix 40 mg for possible reflux History Coronary Artery Disease status post 3 vessels Coronary Artery Bypass Graft ( he follows up at [facility] with dr mathur.) on 2000 History Coronary Artery Disease status post 3 stents ( on 08/2017) ( one stent in LAD, D1 and Lcx) - Continue with Asprin and atorvastatin PVD status post stents on Clopidogrel AAA status post open repair on 1994 -plavix 75 mg Deep Vein Thrombosis prophylaxis - continue with heparin drip I personally saw and evaluated the patient. Discussed with the resident. I agree with resident's findings and plan as documented in the resident's note, unless noted otherwise. Discussed coronary angiography findings with the patient in detail again. Reiterated the need to quit smoking. Discussed all medications with him in detail, and increased his Lipitor to 80 mg daily. SIGNATURE: Alvin Higgins MD PATIENT NAME: Chey Walker DATE: February 02, 2019 TIME: 8:31 AM Pager: [phone] [facility] Activated PTTon 02-01-2019 aPTT Coag (Bld) [Time] 46.5 s High 23.0-32.4 [facility] Comment on above: Result Comment: Unfr actionated Heparin Therapeutic Ranges: Standard Heparin Nomogram: 53 to 78 seconds (anti-Xa level of 0.3 to 0.7 U/mL) Low Dose/ACS Nomogram: 49 to 67 seconds (anti-Xa level of 0.2 to 0.5 U/mL) Stroke Treatment Nomogram: 49 to 67 seconds (anti-Xa level of 0.2 to 0.5 U/mL) Note: The APTT therapeutic range has been determined for the current lot of laboratory APTT reagent in use throughout the [facility]. Performed By: #### A PTT #### [address] [address] aPTT Coag (Bld) [Time] 61.8 s High 23.0-32.4 [facility] Comment on above: Result Comment: Unfr actionated Heparin Therapeutic Ranges: Standard Heparin Nomogram: 53 to 78 seconds (anti-Xa level of 0.3 to 0.7 U/mL) Low Dose/ACS Nomogram: 49 to 67 seconds (anti-Xa level of 0.2 to 0.5 U/mL) Stroke Treatment Nomogram: 49 to 67 seconds (anti-Xa level of 0.2 to 0.5 U/mL) Note: The APTT therapeutic range has been determined for the current lot of laboratory APTT reagent in use throughout the [facility]. Performed By: #### A PTT #### [address] [address] aPTT Coag (Bld) [Time] 48.0 s High 23.0-32.4 [facility] Comment on above: Result Comment: Unfr actionated Heparin Therapeutic Ranges: Standard Heparin Nomogram: 53 to 78 seconds (anti-Xa level of 0.3 to 0.7 U/mL) Low Dose/ACS Nomogram: 49 to 67 seconds (anti-Xa level of 0.2 to 0.5 U/mL) Stroke Treatment Nomogram: 49 to 67 seconds (anti-Xa level of 0.2 to 0.5 U/mL) Note: The APTT therapeutic range has been determined for the current lot of laboratory APTT reagent in use throughout the [facility]. Performed By: #### A PTT #### [facility] [address] [id number] BRIEF OP NOTon 02-01-2019 BRIEF OP NOT HNO ID: [id number] Author: Gael Cha Service: Interventional Cardiology Author Type: Physician Type: Brief Op Note Filed: 02/01/2019 4:06 PM Note Text: Brief Note Chey Walker [id number] 1955 02/01/2019 No primary care provider on file. Note: Coronary angiography indicated for [id number]-[id number] elevation myocardial infarction demonstrated the followin. Normal left main coronary artery. 2. 100% occlusion of the mid left anterior descending coronary artery. 3. 100% severe in-stent restenosis in the ostial diagonal coronary artery stent; Thrombolysis in Myocardial Infarction (TRAVIS) 1 flow. 4. 95% in-stent restenosis in the mid left circumflex coronary artery stent. 5. 100% occlusion of the ostial proximal [place] right coronary artery; vsjbs-gu-ubkjh collaterals ([place] Grade III) fill the right ventricular marginal branches. 6. Known occluded saphenous vein graft to the ramus intermedius artery; [place] ramus intermedius artery has severe epicardial obstructive coronary artery disease 7. Occluded saphenous vein graft to the right posterolateral branch; the free left internal mammary artery graft originates from the saphenous vein graft to the right posterolateral branch. Plan: Medical therapy. Access: left ulnar artery. There were no kain-procedural complications. The patient left the cardiac catheterization laboratory in a stable condition. Gael Cha MD, FACP, FACC, [facility] Staff Cardiovascular Medicine [facility] Section of Interventional Cardiology at [facility] [place] [facility] [address], [address] [place], [place] [address] P: [phone] F: [phone] [email or web address] Normal [facility] Basic Panelon 02-01-2019 Creatinine [Mass/Vol] 1.25 mg/dL High 0.67-1.17 [facility] Comment on above: Performed By: #### A PTT #### [facility] [address] [place], [place] [address] Anion gap [Moles/Vol] 12 mmol/L Normal 8-16 [facility] Comment on above: Performed By: #### A PTT #### [facility] [address] [place], [place] [address] CO2 [Moles/Vol] 24 mmol/L Normal 21-32 [facility] Comment on above: Performed By: #### A PTT #### [facility] [address] [place], [place] [address] Calcium [Mass/Vol] 8.0 mg/dL Low 8.5-10.1 [facility] Comment on above: Performed By: #### A PTT #### [facility] [address] [place], [place] [address] Glucose [Mass/Vol] 94 mg/dL Normal 70-99 [facility] Comment on above: Performed By: #### A PTT #### [address] [address] Urea nitrogen [Mass/Vol] 18 mg/dL Normal 7-18 [facility] Comment on above: Performed By: #### A PTT #### [address] [address] Chloride [Moles/Vol] 106 mmol/L Normal 98-107 [facility] Comment on above: Performed By: #### A PTT #### [facility] [address] [place], [place] [address] Potassium [Moles/Vol] 4.6 mmol/L Normal 3.5-5.1 [facility] Comment on above: Performed By: #### A PTT #### [address] [address] Sodium [Moles/Vol] 137 mmol/L Normal 136-145 [facility] Comment on above: Performed By: #### A PTT #### [facility] [address] [place] [address] Hemogramon 02-01-2019 Erythrocyte distribution width (RBC) [Ratio] 13.2 % Normal 11.6-14.4 [facility] Comment on above: Performed By: #### A PTT #### [facility] [address] [place] [address] Hematocrit (Bld) [Volume fraction] 40.1 % Normal 40.1-51.0 [facility] Comment on above: Performed By: #### A PTT #### [facility] [address] [place] [address] Hemoglobin (Bld) [Mass/Vol] 13.2 g/dL Low 13.7-17.5 [facility] Comment on above: Performed By: #### A PTT #### [place] [address] MCH (RBC) [Entitic mass] 31.5 pg Normal 25.7-32.2 [facility] Comment on above: Performed By: #### A PTT #### [place] [address] MCHC (RBC) [Mass/Vol] 32.9 % Normal 32.3-36.5 [facility] Comment on above: Performed By: #### A PTT #### [place] [address] MCV (RBC) [Entitic vol] 95.7 fL High 83.2-95.6 [facility] Comment on above: Performed By: #### A PTT #### [place] [address] Platelet mean volume (Bld) [Entitic vol] 9.9 fL Normal 8.7-12.0 [facility] Comment on above: Performed By: #### A PTT #### [place] [address] Platelets (Bld) [#/Vol] 275 thou/cmm Normal 141-365 [facility] Comment on above: Performed By: #### A PTT #### [address] [place], [place] [address] RBC (Bld) [#/Vol] 4.19 mil/cmm Low 4.63-6.08 [facility] Comment on above: Performed By: #### A PTT #### [facility] [address] [place], [place] [address] RDW SD 46.0 fl High 36.1-45.8 [facility] Comment on above: Performed By: #### A PTT #### [facility] [address] [place] [id number] WBC (Bld) [#/Vol] 11.20 thou/cmm High 4.23-9.07 [facility] Comment on above: Performed By: #### A PTT #### [facility] [address] [place] [id number] MDRD GFRon 02-01-2019 GFR/1.73 sq M predicted among non-blacks MDRD (S/P/Bld) [Vol rate/Area] 58.23 mL/min/{1.73_m2} Normal >60mL/min/1. 73m2 [facility] Comment on above: Result Comment: If t he patient is , multiply the result by 1.210. Performed By: #### P T #### [facility] [address] [place] [id number] PROGRESSon 02-01-2019 PROGRESS HNO ID: [id number] Author: Michel Figueroa Service: Cardiovascular Medicine Author Type: Physician Type: Progress Notes Filed: 02/01/2019 1:37 PM Note Text: Cardiovascular Intensive Care Unit Progress Note SERVICE DATE: 02/01/2019 SERVICE TIME: 7:52 REASON FOR CONSULT: Nstemi ADMITTING PROVIDER: Wes Navarro Admission Date: January 30, 2019 AGE: [age] year old LOS: 2 days Subjective A 63 year old male with past medical history of History Coronary Artery Disease status post 3 vessels Coronary Artery Bypass Graft ( he follows up at [facility] with dr mathur.) on 2000 History Coronary Artery Disease status post 3 stents ( on 08/2017) ( one stent in LAD, D1 and Lcx) PVD status post stents on Clopidogrel AAA status post open repair on 1994 Presented from [facility] as he presented to the Emergency Department complaining of chest pain . He described the pain as a [place] sensation 7/10 in intensity in the retrosternal region with radiation to the neck . Patient has been complaining of chest pain for a week and he saw his primary care physician and it was thought to be reflux but the patient continued to have chest pain for that reason he went today to [facility]. From what he tells me, the pain occured with exertion, and was relieved went down from 6/10 to 0/10 after starting him on Nitroglycerin drip On further questioning, he admitted that this is associated with Shortness of Breath without Sweating / diaphoresis, Palpitations, Lightheadedness / dizziness, Nausea and Syncope. At present, the patient is chest pain free. In [facility] he found to have NSTEMI and started on heparin drip, his complete blood count was unremarkable and Chest X-ray within normal limits, his troponin is at 2.78 then patient was transferred to our Cardiovascular Intensive Care Unit for further management Patient had problems from before in access when they tried to do LHC from the groin Overnight No acute events overnight, patient is no longer experiencing any chest discomfort. On 20 mcg Nitro Objective REVIEW OF SYSTEMS CONSTITUTIONAL: No fevers, chills, nightsweats, unintended weight loss HEENT: Denies frequent or severe heaches, nasal congestion/sinus symptoms, problematic allergy problems. EYES: No diplopia or blurry vision. CARDIOVASCULAR: No palpitations, orthopnea, paroxysmal nocturnal dyspnea GI: No dysphagia/odynophagia, problematic reflux, constipation, diarrhea, changes in stool habits, hematochezia, melena. : No new urinary complaints, including dysuria, gross hematuria or pyuria. NEURO: No new balance problems, peripheral weakness/paresthesias or numbness of concern. MUSC-SKEL: No new joint pain, swelling, or erythema. PSY: No concerns regarding depression, anxiety or panic. INTEGUMENTARY: No new skin changes (rash, new or changing mole, new growth) No family history on file. PROBLEMS: ACTIVE PROBLEM LIST Nstemi (Non-St Elevated Myocardial Infarction) (Hcc) Nicotine use disorder, F17.2 No past medical history on file. No past surgical history on file. Social History Socioeconomic History Marital status: Spouse name: Not on file Number of children: Not on file Years of education: Not on file Highest education level: Not on file Occupational History Not on file Social Needs Financial resource strain: Not on file Food insecurity: Worry: Not on file Inability: Not on file Transportation needs: Medical: Not on file Non-medical: Not on file Tobacco Use Smoking status: Not on file Substance and Sexual Activity Alcohol use: Not on file Drug use: Not on file Sexual activity: Not on file Lifestyle Physical activity: Days per week: Not on file Minutes per session: Not on file Stress: Not on file Relationships Social connections: Talks on phone: Not on file Gets together: Not on file Attends holiness service: Not on file Active member of club or organization: Not on file Attends meetings of clubs or organizations: Not on file Relationship status: Not on file Intimate partner violence: Fear of current or ex partner: Not on file Emotionally abused: Not on file Physically abused: Not on file Forced sexual activity: Not on file Other Topics Concerns: Not on file Social History Narrative Not on file VITAL SIGNS (last 24hrs min/max): No data recorded No data recorded No data recorded Cuff No data recorded Vital signs reviewed. BP 92/50 Pulse 73 Temp (Src) 98.8 (Temporal) Resp 20 Ht 5' 10 (1.78m) Wt 201 lb 4.5 oz (91.3kg) SpO2 96% BMI 28.88 kg/(m2). Temp (24hrs), Av ?C (98.6 ?F), Min:36.8 ?C (98.2 ?F), Max:37.3 ?C (99.1 ?F) NET FLUID BALANCE Intake/Output Summary (Last 24 hours) at 02/01/2019 0749 Last data filed at 02/01/2019 0500 Gross per 24 hour Intake 1250 ml Output 850 ml Net 400 ml MEDICATIONS Current Facility-Administered Medications Medication Dose Route Frequency - clopidogrel 75 mg tab(s) (PLAVIX) 75 mg ORAL DAILY - pantoprazole DR 40 mg tab(s) (PROTONIX) 40 mg ORAL DAILY (6 AM) - morphine 2-4 mg injection 2-4 mg INTRAVENOUS q 4 H PRN - metoprolol tartrate (short acting) 25 mg tab(s) (LOPRESSOR) 25 mg ORAL q 12 H - potassium chloride 80-120 mEq oral liquid 80-120 mEq ORAL/FEEDING TUBE PRN - potassium chloride iv piggyback 20 mEq/100 mL 20 mEq INTRAVENOUS PRN - magnesium sulfate in water 2 g in sterile water 50 ml 2 g INTRAVENOUS PRN - sodium phosphate 45 mmol in NaCl 0.9% 250 mL 45 mmol INTRAVENOUS PRN - calcium gluconate 4 g in NaCl 0.9% 250 mL 4 g INTRAVENOUS PRN - NaCl 0.9% 2-10 mL 2-10 mL INTRAVENOUS q 12 H - nitroglycerin sublingual 0.4 mg tab(s) (NITROQUICK) 0.4 mg SUBLINGUAL q 5 MIN PRN - atropine 0.4 mg injection 0.4 mg INTRAVENOUS PRN(NO DISPENSE) - aspirin, enteric coated 81 mg tab(s) 81 mg ORAL DAILY - atorvastatin 40 mg tab(s) (LIPITOR) 40 mg ORAL AT BEDTIME - perflutren lipid microspheres 1.1 mg/mL 1.3 mL injection (DEFINloanDepot) 1.3 mL INTRAVENOUS DIRECTED PRN - NaCl 0.9% iv infusion 75 mL/hr INTRAVENOUS CONTINUOUS - heparin iv infusion (LOW DOSE ACS/NOMOGRAM) 25,000 units in NaCl 0.45% 250 mL PREMIX 0-3,000 Units/hr INTRAVENOUS CONTINUOUS And - heparin RATE CHANGE bolus 1,000-4,000 Units for subtherapeutic aptt results 1,000-4,000 Units INTRAVENOUS PRN - nitroglycerin 100 mg in D5W 250 mL 5-200 mcg/min INTRAVENOUS CONTINUOUS Lines, Drains, and Airways Line Peripheral 01/30/19 Assessment Short Right Antecubital 20 Gauge 2 days Peripheral 01/30/19 2100 Short Left Antecubital 20 Gauge 1 day PHYSICAL EXAM PERFORMED: GENERAL APPEARANCE: Calm, comfortable lying recumbent with the head of the bed elevated 30? breathing room air? HENT: Sinuses nontender. ?Nares without drainage. ?Pharynx without thrush. ?Mallampati class II airway with no tongue swelling or uvular edema EYES: ?Eyes without conjunctivitis. ?Pupils equal and reactive. ?Sclera white. Bilateral xanthelasma NECK: Unable to appreciate JVP CVS: Normal s1, s2 no added sounds LUNGS: ?Breathing room air with a saturation of 95%. ?RR 14 without tripoding, splinting, pursed lip breathing or active abdominal expiratory phase. ?Clear lung linder bilaterally. ABDOMEN: ?Soft, nontender and without active expiratory phase. MUSCULOSKELETAL: ?Symmetric tone and strength that is 5/5 by MRC grading. +1 pitting ankle edema SKIN: Midline scar. Warmdry, pink without hives or dermatographia. ?No clubbing. ?Good capillary refill. NEURO: ?Alert and oriented ?3. ?Attention normal. ?Cranial nerves grossly normal. ?Nonfocal exam. ?Speech clear. ?No dysarthria Bedside Echocardiogram with basal hypokinesis with mildly reduced ejection fraction Respiratory/Nursing Documentation: O2 Therapy: Room Air (02/01/19 0500) HEMODYNAMIC DATA: Reviewed LABS: 12 lead EKG : Normal sinus rhythm with st depression in v4-v6 unchanged from before DATA: Diagnostic tests reviewed for today's visit, films/specimens were personally reviewed by me: Most recent labs and imaging results. LABS: Recent Labs 02/01/19 0500 01/31/19 1120 01/31/19 0324 01/30/19 2100 TROPI -- -- 5.720* < > 7.660* -- 7.090* WBC 11.20* -- -- -- 7.87 -- 10.10* RBC 4.19* -- -- -- 4.69 -- 4.79 HB 13.2* -- -- -- 14.5 -- 15.0 HCT 40.1 -- -- -- 45.1 -- 45.5 MCV 95.7* -- -- -- 96.2* -- 95.0 PLT 275 -- -- -- 285 -- 277 GLUC 94 -- -- -- 108* < > -- BUN 18 -- -- -- 15 < > -- CREAT 1.25* -- -- -- 1.20* < > -- NA 137 -- -- -- 141 < > -- K 4.6 -- -- -- 4.3 < > -- CHLOR 106 -- -- -- 107 < > -- CO2 24 -- -- -- 28 < > -- CA 8.0* -- -- -- 8.0* < > -- PTSEC -- -- -- -- -- -- 11.7 APTT 61.8* < > -- < > 36.8* -- 87.9* INR -- -- -- -- -- -- 1.09 MG -- -- -- -- 2.3 -- 1.7 < > = values in this interval not displayed. Recent Labs 02/01/19 0500 01/31/19 1120 01/31/19 0324 01/30/19 2100 TROPI -- -- 5.720* < > 7.660* -- 7.090* WBC 11.20* -- -- -- 7.87 -- 10.10* RBC 4.19* -- -- -- 4.69 -- 4.79 HB 13.2* -- -- -- 14.5 -- 15.0 HCT 40.1 -- -- -- 45.1 -- 45.5 MCV 95.7* -- -- -- 96.2* -- 95.0 MCH 31.5 -- -- -- 30.9 -- 31.3 MCHC 32.9 -- -- -- 32.2* -- 33.0 PLT 275 -- -- -- 285 -- 277 MPV 9.9 -- -- -- 10.0 -- 9.6 GLUC 94 -- -- -- 108* < > -- BUN 18 -- -- -- 15 < > -- CREAT 1.25* -- -- -- 1.20* < > -- NA 137 -- -- -- 141 < > -- K 4.6 -- -- -- 4.3 < > -- CHLOR 106 -- -- -- 107 < > -- CO2 24 -- -- -- 28 < > -- CA 8.0* -- -- -- 8.0* < > -- PTSEC -- -- -- -- -- -- 11.7 APTT 61.8* < > -- < > 36.8* -- 87.9* INR -- -- -- -- -- -- 1.09 MG -- -- -- -- 2.3 -- 1.7 < > = values in this interval not displayed. Assessment/Plan Acute non-ST segment Elevetion Myocardiac Infarction -Patient has a TRAVIS score of 5 -Bedside Echocardiogram with basal hypokinesis with mildly reduced ejection fraction -EKG showed sinus rythm ST depression in V4-V6 -[facility], hope to obtain records of previous procedures to aid in catheterization -Obtain serial troponins, max 7.66, currently 5.72 -PRN morphine for chest pain -HbA1c 5.8 and lipid profile normal -continue with IV nitroglycerin for chest pain -continue with low dose IV heparin drip for 48 hours -high dose atorvastatin increased to 80 mg BID, clinical evidence of hypercholesterolemia with xanthelasma -Continue with aspirin 81 mg daily -Continue Lopressor 25 mg BID Midsternal burning chest pain -likely cardiac in nature, however, on protonix 40 mg for possible reflux History Coronary Artery Disease status post 3 vessels Coronary Artery Bypass Graft ( he follows up at [facility] with dr mathur.) on 2000 History Coronary Artery Disease status post 3 stents ( on 08/2017) ( one stent in LAD, D1 and Lcx) - Continue with Asprin and atorvastatin Acute Kidney Injury unclear if it is Chronic Kidney Disease - urine studies and renal US PVD status post stents on Clopidogrel AAA status post open repair on 1994 Deep Vein Thrombosis prophylaxis - continue with heparin drip I personally saw and evaluated the patient. Discussed with the resident. I agree with resident's findings and plan as documented in the resident's note, unless noted otherwise. Requested records from [facility]. Plan for coronary angiography today. Strongly counseled him to quit smoking. SIGNATURE: Alvin Higgins MD PATIENT NAME: Chey Walker DATE: February 01, 2019 TIME: 7:52 AM Pager: [phone] Normal [facility] Activated PTTon 01-31-2019 aPTT Coag (Bld) [Time] 37.6 s High 23.0-32.4 [facility] Comment on above: Result Comment: Unfr actionated Heparin Therapeutic Ranges: Standard Heparin Nomogram: 53 to 78 seconds (anti-Xa level of 0.3 to 0.7 U/mL) Low Dose/ACS Nomogram: 49 to 67 seconds (anti-Xa level of 0.2 to 0.5 U/mL) Stroke Treatment Nomogram: 49 to 67 seconds (anti-Xa level of 0.2 to 0.5 U/mL) Note: The APTT therapeutic range has been determined for the current lot of laboratory APTT reagent in use throughout the [facility]. Performed By: #### A PTT #### [facility] [address] [place] [address] aPTT Coag (Bld) [Time] 63.2 s High 23.0-32.4 [facility] Comment on above: Result Comment: Unfr actionated Heparin Therapeutic Ranges: Standard Heparin Nomogram: 53 to 78 seconds (anti-Xa level of 0.3 to 0.7 U/mL) Low Dose/ACS Nomogram: 49 to 67 seconds (anti-Xa level of 0.2 to 0.5 U/mL) Stroke Treatment Nomogram: 49 to 67 seconds (anti-Xa level of 0.2 to 0.5 U/mL) Note: The APTT therapeutic range has been determined for the current lot of laboratory APTT reagent in use throughout the [facility]. Performed By: #### A PTT #### [place] [address] aPTT Coag (Bld) [Time] 36.8 s High 23.0-32.4 [facility] Comment on above: Result Comment: Unfr actionated Heparin Therapeutic Ranges: Standard Heparin Nomogram: 53 to 78 seconds (anti-Xa level of 0.3 to 0.7 U/mL) Low Dose/ACS Nomogram: 49 to 67 seconds (anti-Xa level of 0.2 to 0.5 U/mL) Stroke Treatment Nomogram: 49 to 67 seconds (anti-Xa level of 0.2 to 0.5 U/mL) Note: The APTT therapeutic range has been determined for the current lot of laboratory APTT reagent in use throughout the [facility]. Performed By: #### P T #### [facility] [address] [place] [id number] Basic Panelon 01-31-2019 Creatinine [Mass/Vol] 1.20 mg/dL High 0.67-1.17 [facility] Comment on above: Performed By: #### P T #### [place] [id number] Anion gap [Moles/Vol] 10 mmol/L Normal 8-16 [facility] Comment on above: Performed By: #### P T #### [facility] [address] [place], [place] [address] Calcium [Mass/Vol] 8.0 mg/dL Low 8.5-10.1 [facility] Comment on above: Performed By: #### P T #### [facility] [address] [place], [place] [address] CO2 [Moles/Vol] 28 mmol/L Normal 21-32 [facility] Comment on above: Performed By: #### P T #### [facility] [address] [place], [place] [address] Glucose [Mass/Vol] 108 mg/dL High 70-99 [facility] Comment on above: Performed By: #### P T #### [facility] [address] [place] [address] Urea nitrogen [Mass/Vol] 15 mg/dL Normal 7-18 [facility] Comment on above: Performed By: #### P T #### [facility] [address] [place], [place] [address] Chloride [Moles/Vol] 107 mmol/L Normal 98-107 [facility] Comment on above: Performed By: #### P T #### [facility] [address] [place], [place] [address] Potassium [Moles/Vol] 4.3 mmol/L Normal 3.5-5.1 [facility] Comment on above: Performed By: #### P T #### [facility] [address] [place], [place] [address] Sodium [Moles/Vol] 141 mmol/L Normal 136-145 [facility] Comment on above: Performed By: #### P T #### [facility] [address] [place], [place] [address] Creatinine,Urineon 9 Creatinine,Urine 200.0 mg/dL Normal [facility] Comment on above: Performed By: #### P T #### [facility] [address] [place], [place] [address] Hemogramon 01-31-2019 Erythrocyte distribution width (RBC) [Ratio] 13.2 % Normal 11.6-14.4 [facility] Comment on above: Performed By: #### P T #### [facility] [address] [place] [address] Hematocrit (Bld) [Volume fraction] 45.1 % Normal 40.1-51.0 [facility] Comment on above: Performed By: #### P T #### [facility] [address] [place] [address] Hemoglobin (Bld) [Mass/Vol] 14.5 g/dL Normal 13.7-17.5 [facility] Comment on above: Performed By: #### P T #### [facility] [address] [place] [address] MCH (RBC) [Entitic mass] 30.9 pg Normal 25.7-32.2 [facility] Comment on above: Performed By: #### P T #### [facility] [address] [place] [address] MCHC (RBC) [Mass/Vol] 32.2 % Low 32.3-36.5 [facility] Comment on above: Performed By: #### P T #### [facility] [address] [place] [address] MCV (RBC) [Entitic vol] 96.2 fL High 83.2-95.6 [facility] Comment on above: Performed By: #### P T #### [facility] [address] [place] [address] Platelet mean volume (Bld) [Entitic vol] 10.0 fL Normal 8.7-12.0 [facility] Comment on above: Performed By: #### P T #### [facility] [address] [place] [address] Platelets (Bld) [#/Vol] 285 thou/cmm Normal 141-365 [facility] Comment on above: Performed By: #### P T #### [facility] [address] [place] [address] RBC (Bld) [#/Vol] 4.69 mil/cmm Normal 4.63-6.08 [facility] Comment on above: Performed By: #### P T #### [facility] [address] [place] [address] RDW SD 46.7 fl High 36.1-45.8 [facility] Comment on above: Performed By: #### P T #### [facility] [address] [place] [address] WBC (Bld) [#/Vol] 7.87 thou/cmm Normal 4.23-9.07 [facility] Comment on above: Performed By: #### P T #### [facility] [address] [place] [address] Hgb A1con 01-31-2019 HbA1c (Bld) [Mass fraction] 120 mg/dl Normal [facility] Comment on above: Performed By: #### H A1C #### [place] [address] HbA1c (Bld) [Mass fraction] 5.8 % Normal 4.2-6.3 [facility] Comment on above: Result Comment: Meth od is National Glycohemoglobin Standardization Program (NGSP) compliant. Performed By: #### H A1C #### [facility] [address] [place] [address] Lipid Profileon 01-31-2019 Cholesterol in HDL [Mass/Vol] 29 mg/dL Normal >40 [facility] Comment on above: Performed By: #### P T #### [place] [address] Cholesterol in LDL [Mass/Vol] 116 mg/dL Normal [facility] Comment on above: Result Comment: No C AD and with fewer than 2 CAD risk factors <160 mg/dL No CAD but with 2 or more CAD risk factors <130 mg/dL Definite CAD or other atherosclerotic disease <100 mg/dL Performed By: #### P T #### [facility] [address] [place] [address] Cholesterol in LDL/Cholesterol in HDL [Mass ratio] 4.0 Normal 1.1-4.8 [facility] Comment on above: Result Comment: LDL, VLDL,LDL/HDL, Invalid if Triglyceride >400 Performed By: #### P T #### [place] [address] Cholesterol.total/Neha sterol in HDL [Mass ratio] 5.9 {ratio} Normal 2.1-7.3 [facility] Comment on above: Performed By: #### P T #### [facility] [address] [place] [phone] Cholesterol [Mass/Vol] 172 mg/dL Normal 0-199 [facility] Comment on above: Result Comment: <200 Desirable 200-240 Borderline >240 High Performed By: #### P T #### [facility] [address] [place] [address] Cholesterol in VLDL [Mass/Vol] 27 mg/dL Normal <50 Desired [facility] Comment on above: Performed By: #### P T #### [facility] [address] [place] [address] Triglyceride [Mass/Vol] 137 mg/dL Normal 0-149 [facility] Comment on above: Result Comment: < 20 0 Desirable Result invalid if not a fasting specimen. Performed By: #### P T #### [facility] [address] [place] [id number] Magnesium Bloodon 01-31-2019 Magnesium [Mass/Vol] 2.3 mg/dL Normal 1.6-2.6 [facility] Comment on above: Performed By: #### P T #### [facility] [address] [place] [id number] PROGRESSon 01-31-2019 PROGRESS HNO ID: [id number] Author: Wes Navarro Service: Cardiovascular Medicine Author Type: Physician Type: Progress Notes Filed: 01/31/2019 12:24 PM Note Text: Cardiovascular Intensive Care Unit Progress Note SERVICE DATE: 01/31/2019 SERVICE TIME: 9:07 REASON FOR CONSULT: Nstemi ADMITTING PROVIDER: Wes Navarro Admission Date: January 30, 2019 AGE: [age] year old LOS: 1 days Subjective A 63 year old male with past medical history of History Coronary Artery Disease status post 3 vessels Coronary Artery Bypass Graft ( he follows up at [facility] with dr mathur.) on 2000 History Coronary Artery Disease status post 3 stents ( on 08/2017) ( one stent in LAD, D1 and Lcx) PVD status post stents on Clopidogrel AAA status post open repair on 1994 Presented from [facility] as he presented to the Emergency Department complaining of chest pain . He described the pain as a [place] sensation 7/10 in intensity in the retrosternal region with radiation to the neck . Patient has been complaining of chest pain for a week and he saw his primary care physician and it was thought to be reflux but the patient continued to have chest pain for that reason he went today to [facility]. From what he tells me, the pain occured with exertion, and was relieved went down from 6/10 to 0/10 after starting him on Nitroglycerin drip On further questioning, he admitted that this is associated with Shortness of Breath without Sweating / diaphoresis, Palpitations, Lightheadedness / dizziness, Nausea and Syncope. At present, the patient is chest pain free. In [facility] he found to have NSTEMI and started on heparin drip, his complete blood count was unremarkable and Chest X-ray within normal limits, his troponin is at 2.78 then patient was transferred to our Cardiovascular Intensive Care Unit for further management Patient had problems from before in access when they tried to do LHC from the groin Overnight No acute events overnight, patient does complain of some mild mid sternal burning chest pain. Pain is similar in location and quality to previous episodes of pain. No other associated symptoms with this pain. Patient initially described the pain as 4/10 this morning. Nitro drip was restarted and patient was given protonix. After about an hour patient stated the pain was worse and rated an 8/10. Patient was well appearing and hemodynamically stable. Morphine provided for pain relief and a repeat EKG ordered. Objective REVIEW OF SYSTEMS CONSTITUTIONAL: No fevers, chills, nightsweats, unintended weight loss HEENT: Denies frequent or severe heaches, nasal congestion/sinus symptoms, problematic allergy problems. EYES: No diplopia or blurry vision. CARDIOVASCULAR: No palpitations, orthopnea, paroxysmal nocturnal dyspnea GI: No dysphagia/odynophagia, problematic reflux, constipation, diarrhea, changes in stool habits, hematochezia, melena. : No new urinary complaints, including dysuria, gross hematuria or pyuria. NEURO: No new balance problems, peripheral weakness/paresthesias or numbness of concern. MUSC-SKEL: No new joint pain, swelling, or erythema. PSY: No concerns regarding depression, anxiety or panic. INTEGUMENTARY: No new skin changes (rash, new or changing mole, new growth) No family history on file. PROBLEMS: ACTIVE PROBLEM LIST Nstemi (Non-St Elevated Myocardial Infarction) (H[facility]) No past medical history on file. No past surgical history on file. Social History Socioeconomic History Marital status: Spouse name: Not on file Number of children: Not on file Years of education: Not on file Highest education level: Not on file Occupational History Not on file Social Needs Financial resource strain: Not on file Food insecurity: Worry: Not on file Inability: Not on file Transportation needs: Medical: Not on file Non-medical: Not on file Tobacco Use Smoking status: Not on file Substance and Sexual Activity Alcohol use: Not on file Drug use: Not on file Sexual activity: Not on file Lifestyle Physical activity: Days per week: Not on file Minutes per session: Not on file Stress: Not on file Relationships Social connections: Talks on phone: Not on file Gets together: Not on file Attends holiness service: Not on file Active member of club or organization: Not on file Attends meetings of clubs or organizations: Not on file Relationship status: Not on file Intimate partner violence: Fear of current or ex partner: Not on file Emotionally abused: Not on file Physically abused: Not on file Forced sexual activity: Not on file Other Topics Concerns: Not on file Social History Narrative Not on file VITAL SIGNS (last 24hrs min/max): No data recorded No data recorded No data recorded Cuff No data recorded Vital signs reviewed. BP 125/79 Pulse 90 Temp (Src) 97.9 (Temporal) Resp 16 Ht 5' 10 (1.78m) Wt 199 lb 8.3 oz (90.5kg) SpO2 100% BMI 28.63 kg/(m2). Temp (24hrs), Av.6 ?C (97.8 ?F), Min:36.3 ?C (97.3 ?F), Max:36.7 ?C (98.1 ?F) NET FLUID BALANCE Intake/Output Summary (Last 24 hours) at 01/31/2019 7733 Last data filed at 01/31/2019 0614 Gross per 24 hour Intake 887.9 ml Output 425 ml Net 462.9 ml MEDICATIONS Current Facility-Administered Medications Medication Dose Route Frequency - clopidogrel 75 mg tab(s) (PLAVIX) 75 mg ORAL DAILY - pantoprazole DR 40 mg tab(s) (PROTONIX) 40 mg ORAL DAILY (6 AM) - potassium chloride 80-120 mEq oral liquid 80-120 mEq ORAL/FEEDING TUBE PRN - potassium chloride iv piggyback 20 mEq/100 mL 20 mEq INTRAVENOUS PRN - magnesium sulfate in water 2 g in sterile water 50 ml 2 g INTRAVENOUS PRN - sodium phosphate 45 mmol in NaCl 0.9% 250 mL 45 mmol INTRAVENOUS PRN - calcium gluconate 4 g in NaCl 0.9% 250 mL 4 g INTRAVENOUS PRN - NaCl 0.9% 2-10 mL 2-10 mL INTRAVENOUS q 12 H - nitroglycerin sublingual 0.4 mg tab(s) (NITROQUICK) 0.4 mg SUBLINGUAL q 5 MIN PRN - atropine 0.4 mg injection 0.4 mg INTRAVENOUS PRN(NO DISPENSE) - aspirin, enteric coated 81 mg tab(s) 81 mg ORAL DAILY - atorvastatin 40 mg tab(s) (LIPITOR) 40 mg ORAL AT BEDTIME - perflutren lipid microspheres 1.1 mg/mL 1.3 mL injection (DEFINITY) 1.3 mL INTRAVENOUS DIRECTED PRN - NaCl 0.9% iv infusion 75 mL/hr INTRAVENOUS CONTINUOUS - heparin iv infusion (LOW DOSE ACS/NOMOGRAM) 25,000 units in NaCl 0.45% 250 mL PREMIX 0-3,000 Units/hr INTRAVENOUS CONTINUOUS And - heparin RATE CHANGE bolus 1,000-4,000 Units for subtherapeutic aptt results 1,000-4,000 Units INTRAVENOUS PRN - nitroglycerin 100 mg in D5W 250 mL 5-200 mcg/min INTRAVENOUS CONTINUOUS Lines, Drains, and Airways Line Peripheral 01/30/19 Assessment Short Right Antecubital 20 Gauge 1 day Peripheral 01/30/19 2100 Short Left Antecubital 20 Gauge less than 1 day PHYSICAL EXAM PERFORMED: GENERAL APPEARANCE: Calm, comfortable lying recumbent with the head of the bed elevated 30? breathing room air? HENT: Sinuses nontender. ?Nares without drainage. ?Pharynx without thrush. ?Mallampati class II airway with no tongue swelling or uvular edema EYES: ?Eyes without conjunctivitis. ?Pupils equal and reactive. ?Sclera white. Bilateral xanthelasma NECK: Unable to appreciate JVP CVS: Normal s1, s2 no added sounds LUNGS: ?Breathing room air with a saturation of 98%. ?RR 14 without tripoding, splinting, pursed lip breathing or active abdominal expiratory phase. ?Clear lung linder bilaterally. ABDOMEN: ?Soft, nontender and without active expiratory phase. MUSCULOSKELETAL: ?Symmetric tone and strength that is 5/5 by MRC grading. +1 pitting ankle edema SKIN: Midline scar. Warmdry, pink without hives or dermatographia. ?No clubbing. ?Good capillary refill. NEURO: ?Alert and oriented ?3. ?Attention normal. ?Cranial nerves grossly normal. ?Nonfocal exam. ?Speech clear. ?No dysarthria Bedside Echocardiogram with basal hypokinesis with mildly reduced ejection fraction Respiratory/Nursing Documentation: O2 Therapy: Room Air (01/31/19 0730) HEMODYNAMIC DATA: Reviewed LABS: 12 lead EKG : Normal sinus rhythm with st depression in v4-v6 unchanged from before DATA: Diagnostic tests reviewed for today's visit, films/specimens were personally reviewed by me: Most recent labs and imaging results. LABS: Recent Labs 01/31/19 03201/30/19 2100 TROPI 7.660* 7.090* WBC 7.87 10.10* RBC 4.69 4.79 HB 14.5 15.0 HCT 45.1 45.5 MCV 96.2* 95.0 PLT 285 277 GLUC 108* -- BUN 15 -- CREAT 1.20* -- NA 141 -- K 4.3 -- CHLOR 107 -- CO2 28 -- CA 8.0* -- PTSEC -- 11.7 APTT 36.8* 87.9* INR -- 1.09 MG 2.3 1.7 Recent Labs 01/31/19 0324 01/30/19 2100 TROPI 7.660* 7.090* WBC 7.87 10.10* RBC 4.69 4.79 HB 14.5 15.0 HCT 45.1 45.5 MCV 96.2* 95.0 MCH 30.9 31.3 MCHC 32.2* 33.0 PLT 285 277 MPV 10.0 9.6 GLUC 108* -- BUN 15 -- CREAT 1.20* -- NA 141 -- K 4.3 -- CHLOR 107 -- CO2 28 -- CA 8.0* -- PTSEC -- 11.7 APTT 36.8* 87.9* INR -- 1.09 MG 2.3 1.7 Assessment/Plan Acute non-ST segment Elevetion Myocardiac Infarction -Patient has a TRAVIS score of 5 -Bedside Echocardiogram with basal hypokinesis with mildly reduced ejection fraction -EKG showed sinus rythm ST depression in V4-V6 -LHC -Obtain serial troponins, appears to leveling off, currently 7.66 -PRN morphine for chest pain -HbA1c 5.8 and lipid profile normal -Obtain transthoracic echocardiogram in AM -continue with IV nitroglycerin for chest pain -continue with low dose IV heparin drip for 48 hours -Start high dose atorvastatin 40 mg -Continue with aspirin 81 mg daily -Blood pressure now stable, starting Coreg 3.125 Midsternal burning chest pain -likely cardiac in nature, however, will start protonix 40 mg for possible reflux History Coronary Artery Disease status post 3 vessels Coronary Artery Bypass Graft ( he follows up at [facility] with dr mathur.) on 2000 History Coronary Artery Disease status post 3 stents ( on 08/2017) ( one stent in LAD, D1 and Lcx) - Continue with Asprin and atorvastatin Acute Kidney Injury unclear if it is Chronic Kidney Disease - urine studies and renal US PVD status post stents on Clopidogrel AAA status post open repair on 1994 Deep Vein Thrombosis prophylaxis - continue with heparin drip I saw and evaluated the patient. Discussed with the resident and agree with resident's findings and plan as documented in the resident's note. Wes Navarro MD Pager [phone] SIGNATURE: Alvin Higgins MD PATIENT NAME: Chey Walker DATE: January 31, 2019 TIME: 8:01 AM Pager: [phone] Normal [facility] Sodium,Urineon 01-31-2019 Sodium (U) [Moles/Vol] 88 mmol/L Normal [facility] Comment on above: Performed By: #### N AUR #### [address] [address] Troponin Ion 01-31-2019 Troponin I.cardiac [Mass/Vol] 5.720 ng/mL Critically high 0.015-0.045 [facility] Comment on above: Performed By: #### A PTT #### [address] [address] Troponin I.cardiac [Mass/Vol] 6.230 ng/mL Critically high 0.015-0.045 [facility] Comment on above: Performed By: #### A PTT #### [facility] [address] [id number] Troponin I.cardiac [Mass/Vol] 7.660 ng/mL Critically high 0.015-0.045 [facility] Comment on above: Performed By: #### P T #### [facility] [address] [address] US KIDNEY/BLADDERon 02-01-20 19 US KIDNEY/BLADDER * * *Final Report* * * DATE OF EXAM: Jan 31 2019 6:08AM [place] [id number] - KIDNEY/BLADDER / PROCEDURE REASON: Renal failure, acute (kidney injury) * * * * Physician Interpretation * * * * Exam: Renal Ultrasound dated 01/31/2019 6:08 AM. Indication: Renal failure, acute (kidney injury) Comparison: None. Technique: Sonographic images of the kidneys and urinary bladder were obtained and stored in a permanent archive. Findings: Right Kidney: -Renal length: 9.9 cm. -Parenchyma: Normal parenchymal echogenicity. Normal parenchymal thickness. -Collecting system: No hydronephrosis. -Calculus: No echogenic, shadowing calculus. -Lesion: None. Left Kidney: -Renal length: 10 cm. -Parenchyma: Normal parenchymal echogenicity. Normal parenchymal thickness. -Collecting system: No hydronephrosis. -Calculus: No echogenic, shadowing calculus. -Lesion: None. Bladder: Normal sonographic appearance. IMPRESSION: Normal renal ultrasound. Senior Oracle Database Administrator: PSCB Transcribe Date/Time: Jan 31 2019 7:56A Dictated by : LUKASZ MAHAN MD This examination was interpreted and the report reviewed and electronically signed by: LUKASZ MAHAN MD on Jan 31 2019 7:59AM EST Normal [facility] Urinalysis Routineon 019 Bacteria LM.HPF (Urine sed) [#/Area] NONE Normal None [facility] Comment on above: Performed By: #### U RIN2 #### [facility] [address] [place] [address] [place], [place] [address] Ep Cells Urine 0.5 /hpf Normal 0.0-5.0 [facility] Comment on above: Performed By: #### U RIN2 #### [facility] [address] [place] [address] Hyaline Cast 0.7 /lpf Normal 0.0-1.0 [facility] Comment on above: Performed By: #### U RIN2 #### [place] [address] RBC LM.HPF (Urine sed) [#/Area] 0.1 /[HPF] Normal 0.0-5.0 [facility] Comment on above: Performed By: #### U RIN2 #### [place] [address] WBC LM.HPF (Urine sed) [#/Area] 0.6 /[HPF] Normal 0.0-5.0 [facility] Comment on above: Performed By: #### U RIN2 #### [place] [address] Appearance (U) CLEAR Normal [facility] Comment on above: Performed By: #### U RIN2 #### [place] [address] Bilirubin (U) [Mass/Vol] Negative Normal Negative [facility] Comment on above: Performed By: #### U RIN2 #### [place] [address] Color (U) YELLOW Normal [facility] Comment on above: Performed By: #### U RIN2 #### [place] [address] Glucose Ql (U) Negative Normal Negative [facility] Comment on above: Performed By: #### U RIN2 #### [place] [address] Hemoglobin,Urine Negative Normal Negative [facility] Comment on above: Performed By: #### U RIN2 #### [place] [address] Ketone Urine Negative Normal Negative [facility] Comment on above: Performed By: #### U RIN2 #### [facility] [address] [place], [place] [address] Leukocytes Esterase Negative Normal Negative [facility] Comment on above: Performed By: #### U RIN2 #### [facility] [address] [place], [place] [address] Nitrites Urine Negative Normal Negative [facility] Comment on above: Performed By: #### U RIN2 #### [facility] [address] [place] [address] pH (U) 5.5 [pH] Normal 5.0-8.0 [facility] Comment on above: Performed By: #### U RIN2 #### [facility] [address] [place] [address] Protein (U) [Mass/Vol] Negative Normal Negative [facility] Comment on above: Performed By: #### U RIN2 #### [facility] [address] [address] Specific [place], Ur 1.021 Normal 1.005-1.030 [facility] Comment on above: Performed By: #### U RIN2 #### [facility] [address] [place], [place] [address] Urobilinogen,Ur 1.0 EU/dL Normal 0.2-1.0 [facility] Comment on above: Performed By: #### U RIN2 #### [facility] [address] [place] [address] XR CHEST 1V FRONTALon 2018 XR CHEST 1V FRONTAL * * *Final Report* * * DATE OF EXAM: Jan 30 2019 10:43PM AKX [id number] - XR CHEST 1V FRONTAL / PROCEDURE REASON: Acute respiratory illness * * * * Physician Interpretation * * * * EXAMINATION: CHEST RADIOGRAPH (SINGLE VIEW AP OR PA) CLINICAL HISTORY: Acute respiratory illness MQ: [id number] Comparison: None. RESULT: Lines, tubes, and devices: residential monitor leads. Intact median sternotomy wires. Lungs and pleura: No consolidation. No lung mass. No pleural effusion. Cardiomediastinal silhouette: Normal cardiomediastinal silhouette. Other: Deformity of the right clavicle due to prior trauma. IMPRESSION: No acute radiographic abnormality. Senior Oracle Database Administrator: MINA Transcribe Date/Time: Jan 31 2019 7:55A Dictated by : MERLY SUTTON MD This examination was interpreted and the report reviewed and electronically signed by: MERLY SUTTON MD on Jan 31 2019 7:56AM EST Normal [facility] Activated PTTon 01-30-2019 aPTT Coag (Bld) [Time] 87.9 s Critically high 23.0-32. 4 [facility] Comment on above: Result Comment: Unfr actionated Heparin Therapeutic Ranges: Standard Heparin Nomogram: 53 to 78 seconds (anti-Xa level of 0.3 to 0.7 U/mL) Low Dose/ACS Nomogram: 49 to 67 seconds (anti-Xa level of 0.2 to 0.5 U/mL) Stroke Treatment Nomogram: 49 to 67 seconds (anti-Xa level of 0.2 to 0.5 U/mL) Note: The APTT therapeutic range has been determined for the current lot of laboratory APTT reagent in use throughout the [facility]. Performed By: #### A PTT #### [place] [address] HISTORY PHYSICALon 9 HISTORY PHYSICAL HNO ID: [id number] Author: Wes Navarro Service: Cardiovascular Medicine Author Type: Physician Type: HANDP Filed: 01/31/2019 12:52 PM Note Text: Cardiovascular Intensive Care Unit HANDP Note SERVICE DATE: 01/30/2019 SERVICE TIME: 5:53 PM REASON FOR CONSULT: Nstemi ADMITTING PROVIDER: Wes Navarro SERVICE DATE: 01/30/2019 SERVICE TIME: 5:53 PM Admission Date: January 30, 2019 AGE: [age] year old LOS: 0 days Subjective A 63 year old male with past medical history of History Coronary Artery Disease status post 3 vessels Coronary Artery Bypass Graft ( he follows up at [facility] with dr mathur.) on 2000 History Coronary Artery Disease status post 3 stents ( on 08/2017) ( one stent in LAD, D1 and Lcx) PVD status post stents on Clopidogrel AAA status post open repair on 1994 Presented from [facility] as he presented to the Emergency Department complaining of chest pain . He described the pain as a [place] sensation 7/10 in intensity in the retrosternal region with radiation to the neck . Patient has been complaining of chest pain for a week and he saw his primary care physician and it was thought to be reflux but the patient continued to have chest pain for that reason he went today to [facility]. From what he tells me, the pain occured with exertion, and was relieved went down from 6/10 to 0/10 after starting him on Nitroglycerin drip On further questioning, he admitted that this is associated with Shortness of Breath without Sweating / diaphoresis, Palpitations, Lightheadedness / dizziness, Nausea and Syncope. At present, the patient is chest pain free. In [facility] he found to have NSTEMI and started on heparin drip, his complete blood count was unremarkable and Chest X-ray within normal limits, his troponin is at 2.78 then patient was transferred to our Cardiovascular Intensive Care Unit for further management Patient had problems from before in access when they tried to do LHC from the groin Objective REVIEW OF SYSTEMS CONSTITUTIONAL: No fevers, chills, nightsweats, unintended weight loss HEENT: Denies frequent or severe heaches, nasal congestion/sinus symptoms, problematic allergy problems. EYES: No diplopia or blurry vision. CARDIOVASCULAR: No palpitations, orthopnea, paroxysmal nocturnal dyspnea GI: No dysphagia/odynophagia, problematic reflux, constipation, diarrhea, changes in stool habits, hematochezia, melena. : No new urinary complaints, including dysuria, gross hematuria or pyuria. NEURO: No new balance problems, peripheral weakness/paresthesias or numbness of concern. MUSC-SKEL: No new joint pain, swelling, or erythema. PSY: No concerns regarding depression, anxiety or panic. INTEGUMENTARY: No new skin changes (rash, new or changing mole, new growth) No family history on file. PROBLEMS: There is no problem list on file for this patient. No past medical history on file. No past surgical history on file. Social History Socioeconomic History Marital status: Spouse name: Not on file Number of children: Not on file Years of education: Not on file Highest education level: Not on file Occupational History Not on file Social Needs Financial resource strain: Not on file Food insecurity: Worry: Not on file Inability: Not on file Transportation needs: Medical: Not on file Non-medical: Not on file Tobacco Use Smoking status: Not on file Substance and Sexual Activity Alcohol use: Not on file Drug use: Not on file Sexual activity: Not on file Lifestyle Physical activity: Days per week: Not on file Minutes per session: Not on file Stress: Not on file Relationships Social connections: Talks on phone: Not on file Gets together: Not on file Attends holiness service: Not on file Active member of club or organization: Not on file Attends meetings of clubs or organizations: Not on file Relationship status: Not on file Intimate partner violence: Fear of current or ex partner: Not on file Emotionally abused: Not on file Physically abused: Not on file Forced sexual activity: Not on file Other Topics Concerns: Not on file Social History Narrative Not on file VITAL SIGNS (last 24hrs min/max): No data recorded No data recorded No data recorded Cuff No data recorded Vital signs reviewed. There were no vitals taken for this visit. No data recorded. NET FLUID BALANCE No intake or output data in the 24 hours ending 01/30/19 1753 MEDICATIONS No current facility-administered medications for this encounter. Lines, Drains, and Airways None PHYSICAL EXAM PERFORMED: GENERAL APPEARANCE: Calm, comfortable lying recumbent with the head of the bed elevated 30? breathing room air? HENT:pupils equal eyelids normal Bilateral xanthelasma NECK: nl carotid upstroke; no JVD; no obvioius bruit or thyromegaly CVS: Normal s1, s2 no added sounds distant heart sounds no S3 or murmur or RV lift LUNGS: ?diminished COPD habitus wheeze healed sternotomy ABDOMEN: ?Soft, nontender and without active expiratory phase.no hepatomegaly MUSCULOSKELETAL: ?1+ bilat ankle edema no cyanosis SKIN: Midline scar.no major bruise or rash NEURO: ?Alert and oriented ?3. ?Attention normal. ?moves all extrem Pleasant affect ?Nonfocal exam. ?Speech clear. ?No dysarthria Bedside Echocardiogram with basal hypokinesis with mildly reduced ejection fraction Respiratory/Nursing Documentation: HEMODYNAMIC DATA: Reviewed LABS: 12 lead EKG : Normal sinus rhythm with st depression in v4-v6 unchanged from before DATA: Diagnostic tests reviewed for today's visit, films/specimens were personally reviewed by me: Most recent labs and imaging results. LABS: Recent Labs 01/30/19 2100 WBC 10.10* RBC 4.79 HB 15.0 HCT 45.5 MCV 95.0 MCH 31.3 MCHC 33.0 PLT 277 MPV 9.6 Assessment/Plan Acute non-ST segment Elevetion Myocardiac Infarction-type 1 -Patient has a TRAVIS score of 5 -Bedside Echocardiogram with basal hypokinesis with mildly reduced ejection fraction -EKG showed sinus rythm ST depression in V4-V6 -[facility] -Obtain serial troponins -Obtain HbA1c and lipid profile -Obtain transthoracic echocardiogram in AM -continue with IV nitroglycerin for chest pain -continue with low dose IV heparin drip for 48 hours -Start high dose atorvastatin 40 mg -Continue with aspirin 81 mg daily -Start BB once blood pressure is stable -check Chest X-ray -needs heart cath but complex cath-needs L radial approach; do not have CABG report; cannot do groin due to bilat stent sites and prior complication; if remains stable with enz decreasing will plan cath tomorrow once we have prior cath results and bypasses from [place]; if pt with refractory angina or instability do cath emergently today -try to get last cath report from [facility] done 2017 -reviewed risk/benefit/altern of cath PCI with pt; understands and will proceed tomorrow if pt remains stable;consent obtained History Coronary Artery Disease status post 3 vessels Coronary Artery Bypass Graft ( he follows up at [facility] with dr mathur.) on 2000 History Coronary Artery Disease status post 3 stents ( on 08/2017) ( one stent in LAD, D1 and Lcx) - Continue with Asprin and atorvastatin Acute Kidney Injury unclear if it is Chronic Kidney Disease -mild - urine studies and renal US PVD status post stents on Clopidogrel AAA status post open repair on 1994 -per pt cannot have repeat cath via femoral approach COPD-per pt mostly quit smoking; not on O2 Deep Vein Thrombosis prophylaxis - continue with heparin drip I saw and evaluated the patient. Discussed with the resident and agree with resident's findings and plan as documented in the resident's note. Wes Navarro MD Pager [phone] Cc time 30 min SIGNATURE: Whitney Almaguer MD PATIENT NAME: Chey Walker DATE: January 30, 2019 TIME: 5:53 PM Pager: [phone] Normal [facility] HOSPon 01-30-2019 HOSP Patient:Chey Walker MRN: Height:5' 10(1.778 m) Weight:201 lb 4.5 oz (91.3 kg) Outpatient Medications as of 02/01/19: Patient has no current outpatient medications. Admission/Clinic Administered Medications as of 02/01/19: atorvastatin 80 mg tab(s) (LIPITOR) clopidogrel 75 mg tab(s) (PLAVIX) pantoprazole DR 40 mg tab(s) (PROTONIX) morphine 2-4 mg injection metoprolol tartrate (short acting) 25 mg tab(s) (LOPRESSOR) potassium chloride 80-120 mEq oral liquid potassium chloride iv piggyback 20 mEq/100 mL magnesium sulfate in water 2 g in sterile water 50 ml sodium phosphate 45 mmol in NaCl 0.9% 250 mL calcium gluconate 4 g in NaCl 0.9% 250 mL NaCl 0.9% 2-10 mL nitroglycerin sublingual 0.4 mg tab(s) (NITROQUICK) atropine 0.4 mg injection aspirin, enteric coated 81 mg tab(s) perflutren lipid microspheres 1.1 mg/mL 1.3 mL injection (DEFINITY) NaCl 0.9% iv infusion heparin iv infusion (LOW DOSE ACS/NOMOGRAM) 25,000 units in NaCl 0.45% 250 mL PREMIX heparin RATE CHANGE bolus 1,000-4,000 Units for subtherapeutic aptt results nitroglycerin 100 mg in D5W 250 mL Problem List: NSTEMI (non-ST elevated myocardial infarction) ([facility]) [I21.4] Nicotine use disorder, F17.2 [F17.200] Allergies: Sulfa (Sulfonamide Antibiotics) Date Verified: 01/31/19 Lab Values Lab Value Units Date High Low POTA* 4.6 mEq/L 02/01/2019 5.1 3.5 MATEO* 40.1 % 02/01/2019 51.0 40.1 Progress Notes (): Wes Navarro MD 01/31/2019 12:52 PM Addendum Cardiovascular Intensive Care Unit HANDP Note SERVICE DATE: 01/30/2019 SERVICE TIME: 5:53 PM REASON FOR CONSULT: Nstemi ADMITTING PROVIDER: Wes Navarro SERVICE DATE: 01/30/2019 SERVICE TIME: 5:53 PM Admission Date: January 30, 2019 AGE: [age] year old LOS: 0 days Subjective A 63 year old male with past medical history of History Coronary Artery Disease status post 3 vessels Coronary Artery Bypass Graft ( he follows up at [facility] with dr mathur.) on 2000 History Coronary Artery Disease status post 3 stents ( on 08/2017) ( one stent in LAD, D1 and Lcx) PVD status post stents on Clopidogrel AAA status post open repair on 1994 Presented from [facility] as he presented to the Emergency Department complaining of chest pain . He described the pain as a [place] sensation 7/10 in intensity in the retrosternal region with radiation to the neck . Patient has been complaining of chest pain for a week and he saw his primary care physician and it was thought to be reflux but the patient continued to have chest pain for that reason he went today to [facility]. From what he tells me, the pain occured with exertion, and was relieved went down from 6/10 to 0/10 after starting him on Nitroglycerin drip On further questioning, he admitted that this is associated with Shortness of Breath without Sweating / diaphoresis, Palpitations, Lightheadedness / dizziness, Nausea and Syncope. At present, the patient is chest pain free. In [facility] he found to have NSTEMI and started on heparin drip, his complete blood count was unremarkable and Chest X-ray within normal limits, his troponin is at 2.78 then patient was transferred to our Cardiovascular Intensive Care Unit for further management Patient had problems from before in access when they tried to do LHC from the groin Objective REVIEW OF SYSTEMS CONSTITUTIONAL: No fevers, chills, nightsweats, unintended weight loss HEENT: Denies frequent or severe heaches, nasal congestion/sinus symptoms, problematic allergy problems. EYES: No diplopia or blurry vision. CARDIOVASCULAR: No palpitations, orthopnea, paroxysmal nocturnal dyspnea GI: No dysphagia/odynophagia, problematic reflux, constipation, diarrhea, changes in stool habits, hematochezia, melena. : No new urinary complaints, including dysuria, gross hematuria or pyuria. NEURO: No new balance problems, peripheral weakness/paresthesias or numbness of concern. MUSC-SKEL: No new joint pain, swelling, or erythema. PSY: No concerns regarding depression, anxiety or panic. INTEGUMENTARY: No new skin changes (rash, new or changing mole, new growth) No family history on file. PROBLEMS: There is no problem list on file for this patient. No past medical history on file. No past surgical history on file. Social History Socioeconomic History Marital status: Spouse name: Not on file Number of children: Not on file Years of education: Not on file Highest education level: Not on file Occupational History Not on file Social Needs Financial resource strain: Not on file Food insecurity: Worry: Not on file Inability: Not on file Transportation needs: Medical: Not on file Non-medical: Not on file Tobacco Use Smoking status: Not on file Substance and Sexual Activity Alcohol use: Not on file Drug use: Not on file Sexual activity: Not on file Lifestyle Physical activity: Days per week: Not on file Minutes per session: Not on file Stress: Not on file Relationships Social connections: Talks on phone: Not on file Gets together: Not on file Attends holiness service: Not on file Active member of club or organization: Not on file Attends meetings of clubs or organizations: Not on file Relationship status: Not on file Intimate partner violence: Fear of current or ex partner: Not on file Emotionally abused: Not on file Physically abused: Not on file Forced sexual activity: Not on file Other Topics Concerns: Not on file Social History Narrative Not on file VITAL SIGNS (last 24hrs min/max): No data recorded No data recorded No data recorded Cuff No data recorded Vital signs reviewed. There were no vitals taken for this visit. No data recorded. NET FLUID BALANCE No intake or output data in the 24 hours ending 01/30/19 1753 MEDICATIONS No current facility-administered medications for this encounter. Lines, Drains, and Airways None PHYSICAL EXAM PERFORMED: GENERAL APPEARANCE: Calm, comfortable lying recumbent with the head of the bed elevated 30? breathing room air? HENT:pupils equal eyelids normal Bilateral xanthelasma NECK: nl carotid upstroke; no JVD; no obvioius bruit or thyromegaly CVS: Normal s1, s2 no added sounds distant heart sounds no S3 or murmur or RV lift LUNGS: ?diminished COPD habitus wheeze healed sternotomy ABDOMEN: ?Soft, nontender and without active expiratory phase.no hepatomegaly MUSCULOSKELETAL: ?1+ bilat ankle edema no cyanosis SKIN: Midline scar.no major bruise or rash NEURO: ?Alert and oriented ?3. ?Attention normal. ?moves all extrem Pleasant affect ?Nonfocal exam. ?Speech clear. ?No dysarthria Bedside Echocardiogram with basal hypokinesis with mildly reduced ejection fraction Respiratory/Nursing Documentation: HEMODYNAMIC DATA: Reviewed LABS: 12 lead EKG : Normal sinus rhythm with st depression in v4-v6 unchanged from before DATA: Diagnostic tests reviewed for today's visit, films/specimens were personally reviewed by me: Most recent labs and imaging results. LABS: Recent Labs 01/30/19 2100 WBC 10.10* RBC 4.79 HB 15.0 HCT 45.5 MCV 95.0 MCH 31.3 MCHC 33.0 PLT 277 MPV 9.6 Assessment/Plan Acute non-ST segment Elevetion Myocardiac Infarction-type 1 -Patient has a TRAVIS score of 5 -Bedside Echocardiogram with basal hypokinesis with mildly reduced ejection fraction -EKG showed sinus rythm ST depression in V4-V6 -[facility] -Obtain serial troponins -Obtain HbA1c and lipid profile -Obtain transthoracic echocardiogram in AM -continue with IV nitroglycerin for chest pain -continue with low dose IV heparin drip for 48 hours -Start high dose atorvastatin 40 mg -Continue with aspirin 81 mg daily -Start BB once blood pressure is stable -check Chest X-ray -needs heart cath but complex cath-needs L radial approach; do not have CABG report; cannot do groin due to bilat stent sites and prior complication; if remains stable with enz decreasing will plan cath tomorrow once we have prior cath results and bypasses from [place]; if pt with refractory angina or instability do cath emergently today -try to get last cath report from [facility] done 2017 -reviewed risk/benefit/altern of cath PCI with pt; understands and will proceed tomorrow if pt remains stable;consent obtained History Coronary Artery Disease status post 3 vessels Coronary Artery Bypass Graft ( he follows up at [facility] with dr mathur.) on 2000 History Coronary Artery Disease status post 3 stents ( on 08/2017) ( one stent in LAD, D1 and Lcx) - Continue with Asprin and atorvastatin Acute Kidney Injury unclear if it is Chronic Kidney Disease -mild - urine studies and renal US PVD status post stents on Clopidogrel AAA status post open repair on 1994 -per pt cannot have repeat cath via femoral approach COPD-per pt mostly quit smoking; not on O2 Deep Vein Thrombosis prophylaxis - continue with heparin drip I saw and evaluated the patient. Discussed with the resident and agree with resident's findings and plan as documented in the resident's note. Wes Navarro MD Pager [phone] Cc time 30 min SIGNATURE: Whitney Almaguer MD PATIENT NAME: Chey Walker DATE: January 30, 2019 TIME: 5:53 PM Pager: [phone] Previous Version Wes Navarro MD 01/31/2019 12:24 PM Signed Cardiovascular Intensive Care Unit Progress Note SERVICE DATE: 01/31/2019 SERVICE TIME: 9:07 REASON FOR CONSULT: Nstemi ADMITTING PROVIDER: Wes Navarro Admission Date: January 30, 2019 AGE: [age] year old LOS: 1 days Subjective A 63 year old male with past medical history of History Coronary Artery Disease status post 3 vessels Coronary Artery Bypass Graft ( he follows up at [facility] with dr mathur.) on 2000 History Coronary Artery Disease status post 3 stents ( on 08/2017) ( one stent in LAD, D1 and Lcx) PVD status post stents on Clopidogrel AAA status post open repair on 1994 Presented from [facility] as he presented to the Emergency Department complaining of chest pain . He described the pain as a [place] sensation 7/10 in intensity in the retrosternal region with radiation to the neck . Patient has been complaining of chest pain for a week and he saw his primary care physician and it was thought to be reflux but the patient continued to have chest pain for that reason he went today to [facility]. From what he tells me, the pain occured with exertion, and was relieved went down from 6/10 to 0/10 after starting him on Nitroglycerin drip On further questioning, he admitted that this is associated with Shortness of Breath without Sweating / diaphoresis, Palpitations, Lightheadedness / dizziness, Nausea and Syncope. At present, the patient is chest pain free. In [facility] he found to have NSTEMI and started on heparin drip, his complete blood count was unremarkable and Chest X-ray within normal limits, his troponin is at 2.78 then patient was transferred to our Cardiovascular Intensive Care Unit for further management Patient had problems from before in access when they tried to do LHC from the groin Overnight No acute events overnight, patient does complain of some mild mid sternal burning chest pain. Pain is similar in location and quality to previous episodes of pain. No other associated symptoms with this pain. Patient initially described the pain as 4/10 this morning. Nitro drip was restarted and patient was given protonix. After about an hour patient stated the pain was worse and rated an 8/10. Patient was well appearing and hemodynamically stable. Morphine provided for pain relief and a repeat EKG ordered. Objective REVIEW OF SYSTEMS CONSTITUTIONAL: No fevers, chills, nightsweats, unintended weight loss HEENT: Denies frequent or severe heaches, nasal congestion/sinus symptoms, problematic allergy problems. EYES: No diplopia or blurry vision. CARDIOVASCULAR: No palpitations, orthopnea, paroxysmal nocturnal dyspnea GI: No dysphagia/odynophagia, problematic reflux, constipation, diarrhea, changes in stool habits, hematochezia, melena. : No new urinary complaints, including dysuria, gross hematuria or pyuria. NEURO: No new balance problems, peripheral weakness/paresthesias or numbness of concern. MUSC-SKEL: No new joint pain, swelling, or erythema. PSY: No concerns regarding depression, anxiety or panic. INTEGUMENTARY: No new skin changes (rash, new or changing mole, new growth) No family history on file. PROBLEMS: ACTIVE PROBLEM LIST Nstemi (Non-St Elevated Myocardial Infarction) (Hcc) No past medical history on file. No past surgical history on file. Social History Socioeconomic History Marital status: Spouse name: Not on file Number of children: Not on file Years of education: Not on file Highest education level: Not on file Occupational History Not on file Social Needs Financial resource strain: Not on file Food insecurity: Worry: Not on file Inability: Not on file Transportation needs: Medical: Not on file Non-medical: Not on file Tobacco Use Smoking status: Not on file Substance and Sexual Activity Alcohol use: Not on file Drug use: Not on file Sexual activity: Not on file Lifestyle Physical activity: Days per week: Not on file Minutes per session: Not on file Stress: Not on file Relationships Social connections: Talks on phone: Not on file Gets together: Not on file Attends holiness service: Not on file Active member of club or organization: Not on file Attends meetings of clubs or organizations: Not on file Relationship status: Not on file Intimate partner violence: Fear of current or ex partner: Not on file Emotionally abused: Not on file Physically abused: Not on file Forced sexual activity: Not on file Other Topics Concerns: Not on file Social History Narrative Not on file VITAL SIGNS (last 24hrs min/max): No data recorded No data recorded No data recorded Cuff No data recorded Vital signs reviewed. BP 125/79 Pulse 90 Temp (Src) 97.9 (Temporal) Resp 16 Ht 5' 10 (1.78m) Wt 199 lb 8.3 oz (90.5kg) SpO2 100% BMI 28.63 kg/(m2). Temp (24hrs), Av.6 ?C (97.8 ?F), Min:36.3 ?C (97.3 ?F), Max:36.7 ?C (98.1 ?F) NET FLUID BALANCE Intake/Output Summary (Last 24 hours) at 01/31/2019 0758 Last data filed at 01/31/2019 0614 Gross per 24 hour Intake 887.9 ml Output 425 ml Net 462.9 ml MEDICATIONS Current Facility-Administered Medications Medication Dose Route Frequency - clopidogrel 75 mg tab(s) (PLAVIX) 75 mg ORAL DAILY - pantoprazole DR 40 mg tab(s) (PROTONIX) 40 mg ORAL DAILY (6 AM) - potassium chloride 80-120 mEq oral liquid 80-120 mEq ORAL/FEEDING TUBE PRN - potassium chloride iv piggyback 20 mEq/100 mL 20 mEq INTRAVENOUS PRN - magnesium sulfate in water 2 g in sterile water 50 ml 2 g INTRAVENOUS PRN - sodium phosphate 45 mmol in NaCl 0.9% 250 mL 45 mmol INTRAVENOUS PRN - calcium gluconate 4 g in NaCl 0.9% 250 mL 4 g INTRAVENOUS PRN - NaCl 0.9% 2-10 mL 2-10 mL INTRAVENOUS q 12 H - nitroglycerin sublingual 0.4 mg tab(s) (NITROQUICK) 0.4 mg SUBLINGUAL q 5 MIN PRN - atropine 0.4 mg injection 0.4 mg INTRAVENOUS PRN(NO DISPENSE) - aspirin, enteric coated 81 mg tab(s) 81 mg ORAL DAILY - atorvastatin 40 mg tab(s) (LIPITOR) 40 mg ORAL AT BEDTIME - perflutren lipid microspheres 1.1 mg/mL 1.3 mL injection (DEFINITY) 1.3 mL INTRAVENOUS DIRECTED PRN - NaCl 0.9% iv infusion 75 mL/hr INTRAVENOUS CONTINUOUS - heparin iv infusion (LOW DOSE ACS/NOMOGRAM) 25,000 units in NaCl 0.45% 250 mL PREMIX 0-3,000 Units/hr INTRAVENOUS CONTINUOUS And - heparin RATE CHANGE bolus 1,000-4,000 Units for subtherapeutic aptt results 1,000-4,000 Units INTRAVENOUS PRN - nitroglycerin 100 mg in D5W 250 mL 5-200 mcg/min INTRAVENOUS CONTINUOUS Lines, Drains, and Airways Line Peripheral 01/30/19 Assessment Short Right Antecubital 20 Gauge 1 day Peripheral 01/30/19 2100 Short Left Antecubital 20 Gauge less than 1 day PHYSICAL EXAM PERFORMED: GENERAL APPEARANCE: Calm, comfortable lying recumbent with the head of the bed elevated 30? breathing room air? HENT: Sinuses nontender. ?Nares without drainage. ?Pharynx without thrush. Mallampati class II airway with no tongue swelling or uvular edema EYES: ?Eyes without conjunctivitis. ?Pupils equal and reactive. ?Sclera white. Bilateral xanthelasma NECK: Unable to appreciate JVP CVS: Normal s1, s2 no added sounds LUNGS: ?Breathing room air with a saturation of 98%. ?RR 14 without tripoding, splinting, pursed lip breathing or active abdominal expiratory phase. ?Clear lung linder bilaterally. ABDOMEN: ?Soft, nontender and without active expiratory phase. MUSCULOSKELETAL: ?Symmetric tone and strength that is 5/5 by MRC grading. +1 pitting ankle edema SKIN: Midline scar. Warmdry, pink without hives or dermatographia. ?No clubbing. Good capillary refill. NEURO: ?Alert and oriented ?3. ?Attention normal. ?Cranial nerves grossly normal. ?Nonfocal exam. ?Speech clear. ?No dysarthria Bedside Echocardiogram with basal hypokinesis with mildly reduced ejection fraction Respiratory/Nursing Documentation: O2 Therapy: Room Air (01/31/19 0730) HEMODYNAMIC DATA: Reviewed LABS: 12 lead EKG : Normal sinus rhythm with st depression in v4-v6 unchanged from before DATA: Diagnostic tests reviewed for today's visit, films/specimens were personally reviewed by me: Most recent labs and imaging results. LABS: Recent Labs 01/31/19 0324 01/30/19 2100 TROPI 7.660* 7.090* WBC 7.87 10.10* RBC 4.69 4.79 HB 14.5 15.0 HCT 45.1 45.5 MCV 96.2* 95.0 PLT 285 277 GLUC 108* -- BUN 15 -- CREAT 1.20* -- NA 141 -- K 4.3 -- CHLOR 107 -- CO2 28 -- CA 8.0* -- PTSEC -- 11.7 APTT 36.8* 87.9* INR -- 1.09 MG 2.3 1.7 Recent Labs 01/31/19 0324 01/30/19 2100 TROPI 7.660* 7.090* WBC 7.87 10.10* RBC 4.69 4.79 HB 14.5 15.0 HCT 45.1 45.5 MCV 96.2* 95.0 MCH 30.9 31.3 MCHC 32.2* 33.0 PLT 285 277 MPV 10.0 9.6 GLUC 108* -- BUN 15 -- CREAT 1.20* -- NA 141 -- K 4.3 -- CHLOR 107 -- CO2 28 -- CA 8.0* -- PTSEC -- 11.7 APTT 36.8* 87.9* INR -- 1.09 MG 2.3 1.7 Assessment/Plan Acute non-ST segment Elevetion Myocardiac Infarction -Patient has a TRAVIS score of 5 -Bedside Echocardiogram with basal hypokinesis with mildly reduced ejection fraction -EKG showed sinus rythm ST depression in V4-V6 -LHC -Obtain serial troponins, appears to leveling off, currently 7.66 -PRN morphine for chest pain -HbA1c 5.8 and lipid profile normal -Obtain transthoracic echocardiogram in AM -continue with IV nitroglycerin for chest pain -continue with low dose IV heparin drip for 48 hours -Start high dose atorvastatin 40 mg -Continue with aspirin 81 mg daily -Blood pressure now stable, starting Coreg 3.125 Midsternal burning chest pain -likely cardiac in nature, however, will start protonix 40 mg for possible reflux History Coronary Artery Disease status post 3 vessels Coronary Artery Bypass Graft ( he follows up at [facility] with dr mathur.) on 2000 History Coronary Artery Disease status post 3 stents ( on 08/2017) ( one stent in LAD, D1 and Lcx) - Continue with Asprin and atorvastatin Acute Kidney Injury unclear if it is Chronic Kidney Disease - urine studies and renal US PVD status post stents on Clopidogrel AAA status post open repair on 1994 Deep Vein Thrombosis prophylaxis - continue with heparin drip I saw and evaluated the patient. Discussed with the resident and agree with resident's findings and plan as documented in the resident's note. Wes Navarro MD Pager [phone] SIGNATURE: Alvin Higgins MD PATIENT NAME: Chey Walker DATE: January 31, 2019 TIME: 8:01 AM Pager: [phone] Previous Version Michel Figueroa MD 02/01/2019 1:37 PM Signed Cardiovascular Intensive Care Unit Progress Note SERVICE DATE: 02/01/2019 SERVICE TIME: 7:52 REASON FOR CONSULT: Nstemi ADMITTING PROVIDER: Wes Navarro Admission Date: January 30, 2019 AGE: [age] year old LOS: 2 days Subjective A 63 year old male with past medical history of History Coronary Artery Disease status post 3 vessels Coronary Artery Bypass Graft ( he follows up at [facility] with dr mathur.) on 2000 History Coronary Artery Disease status post 3 stents ( on 08/2017) ( one stent in LAD, D1 and Lcx) PVD status post stents on Clopidogrel AAA status post open repair on 1994 Presented from [facility] as he presented to the Emergency Department complaining of chest pain . He described the pain as a [place] sensation 7/10 in intensity in the retrosternal region with radiation to the neck . Patient has been complaining of chest pain for a week and he saw his primary care physician and it was thought to be reflux but the patient continued to have chest pain for that reason he went today to [facility]. From what he tells me, the pain occured with exertion, and was relieved went down from 6/10 to 0/10 after starting him on Nitroglycerin drip On further questioning, he admitted that this is associated with Shortness of Breath without Sweating / diaphoresis, Palpitations, Lightheadedness / dizziness, Nausea and Syncope. At present, the patient is chest pain free. In [facility] he found to have NSTEMI and started on heparin drip, his complete blood count was unremarkable and Chest X-ray within normal limits, his troponin is at 2.78 then patient was transferred to our Cardiovascular Intensive Care Unit for further management Patient had problems from before in access when they tried to do LHC from the groin Overnight No acute events overnight, patient is no longer experiencing any chest discomfort. On 20 mcg Nitro Objective REVIEW OF SYSTEMS CONSTITUTIONAL: No fevers, chills, nightsweats, unintended weight loss HEENT: Denies frequent or severe heaches, nasal congestion/sinus symptoms, problematic allergy problems. EYES: No diplopia or blurry vision. CARDIOVASCULAR: No palpitations, orthopnea, paroxysmal nocturnal dyspnea GI: No dysphagia/odynophagia, problematic reflux, constipation, diarrhea, changes in stool habits, hematochezia, melena. : No new urinary complaints, including dysuria, gross hematuria or pyuria. NEURO: No new balance problems, peripheral weakness/paresthesias or numbness of concern. MUSC-SKEL: No new joint pain, swelling, or erythema. PSY: No concerns regarding depression, anxiety or panic. INTEGUMENTARY: No new skin changes (rash, new or changing mole, new growth) No family history on file. PROBLEMS: ACTIVE PROBLEM LIST Nstemi (Non-St Elevated Myocardial Infarction) (Hcc) Nicotine use disorder, F17.2 No past medical history on file. No past surgical history on file. Social History Socioeconomic History Marital status: Spouse name: Not on file Number of children: Not on file Years of education: Not on file Highest education level: Not on file Occupational History Not on file Social Needs Financial resource strain: Not on file Food insecurity: Worry: Not on file Inability: Not on file Transportation needs: Medical: Not on file Non-medical: Not on file Tobacco Use Smoking status: Not on file Substance and Sexual Activity Alcohol use: Not on file Drug use: Not on file Sexual activity: Not on file Lifestyle Physical activity: Days per week: Not on file Minutes per session: Not on file Stress: Not on file Relationships Social connections: Talks on phone: Not on file Gets together: Not on file Attends holiness service: Not on file Active member of club or organization: Not on file Attends meetings of clubs or organizations: Not on file Relationship status: Not on file Intimate partner violence: Fear of current or ex partner: Not on file Emotionally abused: Not on file Physically abused: Not on file Forced sexual activity: Not on file Other Topics Concerns: Not on file Social History Narrative Not on file VITAL SIGNS (last 24hrs min/max): No data recorded No data recorded No data recorded Cuff No data recorded Vital signs reviewed. BP 92/50 Pulse 73 Temp (Src) 98.8 (Temporal) Resp 20 Ht 5' 10 (1.78m) Wt 201 lb 4.5 oz (91.3kg) SpO2 96% BMI 28.88 kg/(m2). Temp (24hrs), Av ?C (98.6 ?F), Min:36.8 ?C (98.2 ?F), Max:37.3 ?C (99.1 ?F) NET FLUID BALANCE Intake/Output Summary (Last 24 hours) at 02/01/2019 0749 Last data filed at 02/01/2019 0500 Gross per 24 hour Intake 1250 ml Output 850 ml Net 400 ml MEDICATIONS Current Facility-Administered Medications Medication Dose Route Frequency - clopidogrel 75 mg tab(s) (PLAVIX) 75 mg ORAL DAILY - pantoprazole DR 40 mg tab(s) (PROTONIX) 40 mg ORAL DAILY (6 AM) - morphine 2-4 mg injection 2-4 mg INTRAVENOUS q 4 H PRN - metoprolol tartrate (short acting) 25 mg tab(s) (LOPRESSOR) 25 mg ORAL q 12 H - potassium chloride 80-120 mEq oral liquid 80-120 mEq ORAL/FEEDING TUBE PRN - potassium chloride iv piggyback 20 mEq/100 mL 20 mEq INTRAVENOUS PRN - magnesium sulfate in water 2 g in sterile water 50 ml 2 g INTRAVENOUS PRN - sodium phosphate 45 mmol in NaCl 0.9% 250 mL 45 mmol INTRAVENOUS PRN - calcium gluconate 4 g in NaCl 0.9% 250 mL 4 g INTRAVENOUS PRN - NaCl 0.9% 2-10 mL 2-10 mL INTRAVENOUS q 12 H - nitroglycerin sublingual 0.4 mg tab(s) (NITROQUICK) 0.4 mg SUBLINGUAL q 5 MIN PRN - atropine 0.4 mg injection 0.4 mg INTRAVENOUS PRN(NO DISPENSE) - aspirin, enteric coated 81 mg tab(s) 81 mg ORAL DAILY - atorvastatin 40 mg tab(s) (LIPITOR) 40 mg ORAL AT BEDTIME - perflutren lipid microspheres 1.1 mg/mL 1.3 mL injection (DEFINITY) 1.3 mL INTRAVENOUS DIRECTED PRN - NaCl 0.9% iv infusion 75 mL/hr INTRAVENOUS CONTINUOUS - heparin iv infusion (LOW DOSE ACS/NOMOGRAM) 25,000 units in NaCl 0.45% 250 mL PREMIX 0-3,000 Units/hr INTRAVENOUS CONTINUOUS And - heparin RATE CHANGE bolus 1,000-4,000 Units for subtherapeutic aptt results 1,000-4,000 Units INTRAVENOUS PRN - nitroglycerin 100 mg in D5W 250 mL 5-200 mcg/min INTRAVENOUS CONTINUOUS Lines, Drains, and Airways Line Peripheral 01/30/19 Assessment Short Right Antecubital 20 Gauge 2 days Peripheral 01/30/19 2100 Short Left Antecubital 20 Gauge 1 day PHYSICAL EXAM PERFORMED: GENERAL APPEARANCE: Calm, comfortable lying recumbent with the head of the bed elevated 30? breathing room air? HENT: Sinuses nontender. ?Nares without drainage. ?Pharynx without thrush. Mallampati class II airway with no tongue swelling or uvular edema EYES: ?Eyes without conjunctivitis. ?Pupils equal and reactive. ?Sclera white. Bilateral xanthelasma NECK: Unable to appreciate JVP CVS: Normal s1, s2 no added sounds LUNGS: ?Breathing room air with a saturation of 95%. ?RR 14 without tripoding, splinting, pursed lip breathing or active abdominal expiratory phase. ?Clear lung linder bilaterally. ABDOMEN: ?Soft, nontender and without active expiratory phase. MUSCULOSKELETAL: ?Symmetric tone and strength that is 5/5 by MRC grading. +1 pitting ankle edema SKIN: Midline scar. Warmdry, pink without hives or dermatographia. ?No clubbing. Good capillary refill. NEURO: ?Alert and oriented ?3. ?Attention normal. ?Cranial nerves grossly normal. ?Nonfocal exam. ?Speech clear. ?No dysarthria Bedside Echocardiogram with basal hypokinesis with mildly reduced ejection fraction Respiratory/Nursing Documentation: O2 Therapy: Room Air (02/01/19 0500) HEMODYNAMIC DATA: Reviewed LABS: 12 lead EKG : Normal sinus rhythm with st depression in v4-v6 unchanged from before DATA: Diagnostic tests reviewed for today's visit, films/specimens were personally reviewed by me: Most recent labs and imaging results. LABS: Recent Labs 02/01/19 0500 01/31/19 1120 01/31/19 0324 01/30/19 2100 TROPI -- -- 5.720* < > 7.660* -- 7.090* WBC 11.20* -- -- -- 7.87 -- 10.10* RBC 4.19* -- -- -- 4.69 -- 4.79 HB 13.2* -- -- -- 14.5 -- 15.0 HCT 40.1 -- -- -- 45.1 -- 45.5 MCV 95.7* -- -- -- 96.2* -- 95.0 PLT 275 -- -- -- 285 -- 277 GLUC 94 -- -- -- 108* < > -- BUN 18 -- -- -- 15 < > -- CREAT 1.25* -- -- -- 1.20* < > -- NA 137 -- -- -- 141 < > -- K 4.6 -- -- -- 4.3 < > -- CHLOR 106 -- -- -- 107 < > -- CO2 24 -- -- -- 28 < > -- CA 8.0* -- -- -- 8.0* < > -- PTSEC -- -- -- -- -- -- 11.7 APTT 61.8* < > -- < > 36.8* -- 87.9* INR -- -- -- -- -- -- 1.09 MG -- -- -- -- 2.3 -- 1.7 < > = values in this interval not displayed. Recent Labs 02/01/19 0500 01/31/19 1120 01/31/19 0324 01/30/19 2100 TROPI -- -- 5.720* < > 7.660* -- 7.090* WBC 11.20* -- -- -- 7.87 -- 10.10* RBC 4.19* -- -- -- 4.69 -- 4.79 HB 13.2* -- -- -- 14.5 -- 15.0 HCT 40.1 -- -- -- 45.1 -- 45.5 MCV 95.7* -- -- -- 96.2* -- 95.0 MCH 31.5 -- -- -- 30.9 -- 31.3 MCHC 32.9 -- -- -- 32.2* -- 33.0 PLT 275 -- -- -- 285 -- 277 MPV 9.9 -- -- -- 10.0 -- 9.6 GLUC 94 -- -- -- 108* < > -- BUN 18 -- -- -- 15 < > -- CREAT 1.25* -- -- -- 1.20* < > -- NA 137 -- -- -- 141 < > -- K 4.6 -- -- -- 4.3 < > -- CHLOR 106 -- -- -- 107 < > -- CO2 24 -- -- -- 28 < > -- CA 8.0* -- -- -- 8.0* < > -- PTSEC -- -- -- -- -- -- 11.7 APTT 61.8* < > -- < > 36.8* -- 87.9* INR -- -- -- -- -- -- 1.09 MG -- -- -- -- 2.3 -- 1.7 < > = values in this interval not displayed. Assessment/Plan Acute non-ST segment Elevetion Myocardiac Infarction -Patient has a TRAVIS score of 5 -Bedside Echocardiogram with basal hypokinesis with mildly reduced ejection fraction -EKG showed sinus rythm ST depression in V4-V6 -[facility], hope to obtain records of previous procedures to aid in catheterization -Obtain serial troponins, max 7.66, currently 5.72 -PRN morphine for chest pain -HbA1c 5.8 and lipid profile normal -continue with IV nitroglycerin for chest pain -continue with low dose IV heparin drip for 48 hours -high dose atorvastatin increased to 80 mg BID, clinical evidence of hypercholesterolemia with xanthelasma -Continue with aspirin 81 mg daily -Continue Lopressor 25 mg BID Midsternal burning chest pain -likely cardiac in nature, however, on protonix 40 mg for possible reflux History Coronary Artery Disease status post 3 vessels Coronary Artery Bypass Graft ( he follows up at [facility] with dr mathur.) on 2000 History Coronary Artery Disease status post 3 stents ( on 08/2017) ( one stent in LAD, D1 and Lcx) - Continue with Asprin and atorvastatin Acute Kidney Injury unclear if it is Chronic Kidney Disease - urine studies and renal US PVD status post stents on Clopidogrel AAA status post open repair on 1994 Deep Vein Thrombosis prophylaxis - continue with heparin drip I personally saw and evaluated the patient. Discussed with the resident. I agree with resident's findings and plan as documented in the resident's note, unless noted otherwise. Requested records from [facility]. Plan for coronary angiography today. Strongly counseled him to quit smoking. SIGNATURE: Alvin Higgins MD PATIENT NAME: Chey Walker DATE: February 01, 2019 TIME: 7:52 AM Pager: [phone] Previous Version Wes Navarro MD 02/01/2019 10:55 AM Signed Result Noted. Patient is currently hospitalized and managed by the in-patient team. Wes Navarro MD Normal [facility] Hemogramon 01-30-2019 Erythrocyte distribution width (RBC) [Ratio] 13.1 % Normal 11.6-14.4 [facility] Comment on above: Performed By: #### C BC1 #### [facility] [address] [place] [address] Hematocrit (Bld) [Volume fraction] 45.5 % Normal 40.1-51.0 [facility] Comment on above: Performed By: #### C BC1 #### [place] [address] Hemoglobin (Bld) [Mass/Vol] 15.0 g/dL Normal 13.7-17.5 [facility] Comment on above: Performed By: #### C BC1 #### [place] [address] MCH (RBC) [Entitic mass] 31.3 pg Normal 25.7-32.2 [facility] Comment on above: Performed By: #### C BC1 #### [place] [address] MCHC (RBC) [Mass/Vol] 33.0 % Normal 32.3-36.5 [facility] Comment on above: Performed By: #### C BC1 #### [facility] [address] [place] [address] MCV (RBC) [Entitic vol] 95.0 fL Normal 83.2-95.6 [facility] Comment on above: Performed By: #### C BC1 #### [place] [address] Platelet mean volume (Bld) [Entitic vol] 9.6 fL Normal 8.7-12.0 [facility] Comment on above: Performed By: #### C BC1 #### [facility] [address] [place], [place] [address] Platelets (Bld) [#/Vol] 277 thou/cmm Normal 141-365 [facility] Comment on above: Performed By: #### C BC1 #### [facility] [address] [place], [place] [address] RBC (Bld) [#/Vol] 4.79 mil/cmm Normal 4.63-6.08 [facility] Comment on above: Performed By: #### C BC1 #### [facility] [address] [place], [place] [address] RDW SD 46.6 fl High 36.1-45.8 [facility] Comment on above: Performed By: #### C BC1 #### [address] [address] WBC (Bld) [#/Vol] 10.10 thou/cmm High 4.23-9.07 [facility] Comment on above: Performed By: #### C BC1 #### [address] [address] Lipid Profileon 01-30-2019 Cholesterol in HDL [Mass/Vol] 32 mg/dL Normal >40 [facility] Comment on above: Performed By: #### L IPD2 #### [address] [address] Cholesterol in LDL [Mass/Vol] 131 mg/dL Normal [facility] Comment on above: Result Comment: No C AD and with fewer than 2 CAD risk factors <160 mg/dL No CAD but with 2 or more CAD risk factors <130 mg/dL Definite CAD or other atherosclerotic disease <100 mg/dL Performed By: #### L IPD2 #### [address] [address] Cholesterol in LDL/Cholesterol in HDL [Mass ratio] 4.1 Normal 1.1-4.8 [facility] Comment on above: Result Comment: LDL, VLDL,LDL/HDL, Invalid if Triglyceride >400 Performed By: #### L IPD2 #### [address] [place], [place] [address] Cholesterol.total/Neha sterol in HDL [Mass ratio] 5.6 {ratio} Normal 2.1-7.3 [facility] Comment on above: Performed By: #### L IPD2 #### [facility] [address] [place], [place] [address] Cholesterol in VLDL [Mass/Vol] 17 mg/dL Normal <50 Desired [facility] Comment on above: Performed By: #### L IPD2 #### [facility] [address] [place], [place] [address] Triglyceride [Mass/Vol] 86 mg/dL Normal 0-149 [facility] Comment on above: Result Comment: < 20 0 Desirable Result invalid if not a fasting specimen. Performed By: #### L IPD2 #### [address] [address] Cholesterol [Mass/Vol] 180 mg/dL Normal 0-199 [facility] Comment on above: Result Comment: <200 Desirable 200-240 Borderline >240 High Performed By: #### L IPD2 #### [address] [address] MRSA/MSSA Screenon 9 MRSA/MSSA Screen Test performed at [facility] No Staph aureus or MRSA detected. Normal [facility] Comment on above: Performed By: #### A PTT #### [address] [address] Magnesium Bloodon 01-30-2019 Magnesium [Mass/Vol] 1.7 mg/dL Normal 1.6-2.6 [facility] Comment on above: Performed By: #### M AG #### [address] [address] N-terminal Pro-BNPon 019 Natriuretic peptide B (Bld) [Mass/Vol] 5077 pg/mL Normal [facility] Comment on above: Result Comment: Note new reference range: Normal Reference Range: Patients <75 yrs old <125pg/ml Patients >=75 yrs old <450 pg/ml Performed By: #### P BNP #### [place] [id number] Protimeon 01-30-2019 INR Coag (PPP) [Relative time] 1.09 {INR} Normal 0.90-1.30 [facility] Comment on above: Result Comment: Mavis min K Antagonist (VKA) Therapeutic Range: INR 2 to 3 (Target INR of 2.5) Note: For patients treated with VKA drugs, such as warfarin, the [employer] [employer] 2012 Guideline recommends a therapeutic INR range of 2 to 3 (target INR of 2.5). This recommendation includes high-risk patients with antiphospholipid syndrome with previous arterial or venous thromboembolism, current-generation mechanical or bioprosthetic aortic heart valve replacement. VKA Therapeutic Range for some Mechanical Valve Replacement: INR 2.5 to 3.5 (Target INR of 3) Note: Patients with mechanical aortic valve replacement and additional risk factors for thromboembolic events (atrial fibrillation, previous thromboembolism, LV dysfunction, hypercoagulable conditions) or an older generation mechanical AVR (i.e., ball in-Cage) or any mechanical MVR should have a INR therapeutic range of 2.5 to 3.5 target INR of 3). Anshul GH, et al. Chest 2012; 141:7S-47S Aishwarya RA, et al. JACC 2017; 70: 252-289 Performed By: #### P T #### [place] [address] PT Coag (PPP) [Time] 11.7 s Normal 9.7-13.0 [facility] Comment on above: Performed By: #### P T #### [place] [id number] Troponin Ion 01-30-2019 Troponin I.cardiac [Mass/Vol] 7.090 ng/mL Critically high 0.015-0.045 [facility] Comment on above: Performed By: #### T ROP #### [place] [id number] Discharge Summaryon 08-24-19 18 Discharge Summary Normal [facility] [place] .Auto Diffon 08-21-2017 Basophils Auto #/vol (Bld) 0.10 10 3/mcL Normal 0.00-0.27 [facility] ([place] Comment on above: Performed By: #### C BC, ADIFF, ANEU, BMP, GFR ####[address] [place], [place] [address] Basophils/100 WBC Auto (Bld) 0.8 % Normal 0.0-2.5 [facility] ([place] Comment on above: Performed By: #### C BC, ADIFF, ANEU, BMP, GFR ####[address] [place], [place] [address] Eosinophils 0.40 10 3/mcL Normal 0.00-0.65 [facility] ([place] Comment on above: Performed By: #### C BC, ADIFF, ANEU, BMP, GFR ####[address] [place], [place] [address] Eosinophils/100 leukocytes 5.5 % Normal 0.0-6.0 [facility] ([place] Comment on above: Performed By: #### C BC, ADIFF, ANEU, BMP, GFR ####[address] [place], [place] [address] Lymphocytes 1.90 10 3/mcL Normal 0.90-4.32 [facility] ([place] Comment on above: Performed By: #### C BC, ADIFF, ANEU, BMP, GFR ####[address] [place], [place] [address] Lymphocytes/100 leukocytes 27.4 % Normal 20.0-40.0 [facility] ([place] Comment on above: Performed By: #### C BC, ADIFF, ANEU, BMP, GFR ####[address] [place], [place] [address] Monocytes 0.50 10 3/mcL Normal 0.09-1.40 [facility] ([place] Comment on above: Performed By: #### C BC, ADIFF, ANEU, BMP, GFR ####[address] [place], [place] [address] Monocytes/100 leukocytes 7.5 % Normal 2.0-13.0 [facility] ([place] Comment on above: Performed By: #### C BC, ADIFF, ANEU, BMP, GFR ####[address] [place], [place] [address] Neutrophils/100 WBC Auto (Bld) 58.8 % Normal 50.0-75.0 [facility] ([place] Comment on above: Performed By: #### C MAXIMO MICHELLE, ANEU, BMP, GFR ####[address] [place], [place] [address] .GFRon 08-21-2017 eGFR (non-black) mL/min/{1.73_m2} Normal [facility] ([place]) Comment on above: Result Comment: GFR Population mean for , Non- Americans Ages 20-29 = 116 mL/min/1.73 sq.m. Ages 30-39 = 107 mL/min/1.73 sq.m. Ages 40-49 = 99 mL/min/1.73 sq.m. Ages 50-59 = 93 mL/min/1.73 sq.m. Ages 60-69 = 85 mL/min/1.73 sq.m. Ages 70+ = 75 mL/min/1.73 sq.m.Chronic Kidney Disease: Less than 60 mL/min/1.73 square metersEnd Stage Renal Disease: Less than 15 mL/min/1.73 square meters Performed By: #### C MAXIMO MICHELLE, ANEU, BMP, GFR ####[address] [place], [place] [address] .NEUABSon 08-21-2017 Neutrophils 4.10 10 3/mcL Normal 2.25-8.10 [facility] ([place] Comment on above: Performed By: #### C MAXIMO MICHELLE, ANEU, BMP, GFR ####[address] [place], [place] [address] BMPon 08-21-2017 BUN/Creatinine Ratio 13.1 ratio Normal 10.0-22.0 On license of [facility] ([place]) Comment on above: Performed By: #### C MAXIMO MICHELLE, ANEU, BMP, GFR ####[address] [place], [place] [address] Calcium 8.2 mg/dL Low 8.4-10.1 [facility] ([place] Comment on above: Performed By: #### C BC, ADIFF, ANEU, BMP, GFR ####[address] [place], [place] [address] Chloride 111 mmol/L High 98-110 [facility] ([place] Comment on above: Performed By: #### C BC, ADIFF, ANEU, BMP, GFR ####[address] [place], [place] [address] CO2 23 mmol/L Normal 22-32 [facility] ([place] Comment on above: Performed By: #### C BC, ADIFF, ANEU, BMP, GFR ####[address] [place], [place] [address] Creatinine 1.07 mg/dL Normal 0.60-1.40 [facility] ([place] Comment on above: Performed By: #### C BC, ADIFF, ANEU, BMP, GFR ####[address] [place], [place] [address] Electrolyte Balance 6.0 mEq/L Normal 4.0-15.0 [facility] ([place] Comment on above: Performed By: #### C BC, ADIFF, ANEU, BMP, GFR ####[address] [place], [place] [address] Glucose mass conc 101 mg/dL Normal 82-115 [facility] ([place] Comment on above: Performed By: #### C BC, ADIFF, ANEU, BMP, GFR ####[address] [place], [place] [address] Potassium molar conc 4.3 mmol/L Normal 3.5-5.0 On license of [facility] ([place]) Comment on above: Performed By: #### C BC, ADIFF, ANEU, BMP, GFR ####[address] [place], [place] [address] Sodium 140 mmol/L Normal 136-145 [facility] ([place] Comment on above: Performed By: #### C BC, ADIFF, ANEU, BMP, GFR ####[address] [place], [place] [address] Urea nitrogen 14.0 mg/dL Normal 8.0-22.0 [facility] ([place] Comment on above: Performed By: #### C BC, ADIFF, ANEU, BMP, GFR ####[address] [place], [place] [address] CBCon 08-21-2017 Erythrocyte distribution width Auto Ratio (RBC) 13.3 % Normal 11.5-15.5 [facility] ([place] Comment on above: Performed By: #### C BC, ADIFF, ANEU, BMP, GFR ####[address] [place], [place] [address] Erythrocytes (RBC) 4.53 10 6/mcL Normal 4.50-6.00 [facility] ([place] Comment on above: Performed By: #### C BC, ADIFF, ANEU, BMP, GFR ####[address] [place], [place] [address] Hematocrit (HCT) 42.0 % Normal 40.0-52.0 [facility] ([place] Comment on above: Performed By: #### C BC, ADIFF, ANEU, BMP, GFR ####[address] [place], [place] [address] Hemoglobin mass conc (Bld) 14.5 G/dL Normal 13.0-17.5 [facility] ([place] Comment on above: Performed By: #### C BC, ADIFF, ANEU, BMP, GFR ####[address] [place], [place] [address] MCH 31.9 pg Normal 27.0-33.0 [facility] ([place] Comment on above: Performed By: #### C BC, ADIFF, ANEU, BMP, GFR ####[address] [place], [place] [address] MCHC mass conc (RBC) 34.4 G/dL Normal 32.0-36.0 On license of [facility] ([place] Comment on above: Performed By: #### C BC, ADIFF, ANEU, BMP, GFR ####[address] [place] [address] MCV 92.7 fL Normal 81.0-100.0 [facility] ([place] Comment on above: Performed By: #### C BC, ADIFF, ANEU, BMP, GFR ####[address] [place], [place] [address] Platelet mean volume (PMV) 8.3 fL Normal 6.4-10.5 [facility] ([place] Comment on above: Performed By: #### C BC, ADIFF, ANEU, BMP, GFR ####[address] [place], [place] [address] Platelets 272 10 3/mcL Normal 150-450 [facility]) Comment on above: Performed By: #### C BC, ADIFF, ANEU, BMP, GFR ####[address] [place], [place] [address] WBC (Leukocytes) 7.10 10 3/mcL Normal 4.50-10.80 [facility]) Comment on above: Performed By: #### C BC, ADIFF, ANEU, BMP, GFR ####[address] [place], [place] [address] Depart Summaryon 08-21-2017 Depart Summary Normal [facility]) Discharge Summaryon 08-22-19 18 Discharge Summary Normal [facility]) Inpatient Patient Summaryon 08-21-2017 Inpatient Patient Summary Normal [facility]) LIPIDon 08-21-2017 Cholesterol 154 mg/dL Normal 50-199 [facility]) Comment on above: Result Comment: Chol esterol Reference Interval:Less than 200 [id number] Borderline high [id number] and above High risk Performed By: #### C BC, ADIFF, ANEU, BMP, GFR ####[address] [place], [place] [address] HDL Cholesterol 26 mg/dL Low 40-59 [facility] ([place] Comment on above: Result Comment: HDL Reference Interval:Less than 40 Low - high risk60 or above Optimal/lowers risk Performed By: #### C BC, ADIFF, ANEU, BMP, GFR ####[address] [place], [place] [address] LDL Cholesterol 110 mg/dL Normal 0-129 [facility]) Comment on above: Result Comment: LDL is a calculated result and requires a 12-hr fast.LDL Reference Interval:Less than 100 [id number] Near or above [id number] Borderline high [id number] High [id number] and above Very high risk Performed By: #### C BC, ADIFF, ANEU, BMP, GFR ####[address] [place], [place] [address] Triglyceride 92 mg/dL Normal 3-149 [facility] ([place] Comment on above: Result Comment: Trig lyceride Reference Interval:Less than 150 [id number] Borderline high [id number] High [id number] or higher Very high risk Performed By: #### C BC, ADIFF, ANEU, BMP, GFR ####[address] [place], [place] [address] Pat Eduon 08-21-2017 Pat Edu Normal [facility] ([place] .GFRon 08-20-2017 eGFR (non-black) mL/min/{1.73_m2} Normal [facility] ([place] Comment on above: Result Comment: GFR Population mean for , Non- Americans Ages 20-29 = 116 mL/min/1.73 sq.m. Ages 30-39 = 107 mL/min/1.73 sq.m. Ages 40-49 = 99 mL/min/1.73 sq.m. Ages 50-59 = 93 mL/min/1.73 sq.m. Ages 60-69 = 85 mL/min/1.73 sq.m. Ages 70+ = 75 mL/min/1.73 sq.m.Chronic Kidney Disease: Less than 60 mL/min/1.73 square metersEnd Stage Renal Disease: Less than 15 mL/min/1.73 square meters Performed By: #### B MP, GFR, PRO ####[address] [address] eGFR (non-black) 58 ml/min/1.73sqm Normal A [facility] ([place]) Comment on above: Result Comment: GFR Population mean for , Non- Americans Ages 20-29 = 116 mL/min/1.73 sq.m. Ages 30-39 = 107 mL/min/1.73 sq.m. Ages 40-49 = 99 mL/min/1.73 sq.m. Ages 50-59 = 93 mL/min/1.73 sq.m. Ages 60-69 = 85 mL/min/1.73 sq.m. Ages 70+ = 75 mL/min/1.73 sq.m.Chronic Kidney Disease: Less than 60 mL/min/1.73 square metersEnd Stage Renal Disease: Less than 15 mL/min/1.73 square meters Performed By: #### B MP, GFR, PRO ####[place] [address] BMPon 08-20-2017 BUN/Creatinine Ratio 12.7 ratio Normal 10.0-22.0 On license of [facility] ([place]) Comment on above: Performed By: #### B MP, GFR, PRO ####[place] [address] Creatinine 1.26 mg/dL Normal 0.60-1.40 [facility] ([place] Comment on above: Performed By: #### B MP, GFR, PRO ####[place] [address] Calcium 9.1 mg/dL Normal 8.4-10.1 [facility] ([place] Comment on above: Performed By: #### B MP, GFR, PRO ####[place] [address] Chloride 110 mmol/L Normal 98-110 [facility] ([place] Comment on above: Performed By: #### B MP, GFR, PRO ####[place] [address] CO2 21 mmol/L Low 22-32 [facility] ([place] Comment on above: Performed By: #### B MP, GFR, PRO ####[place] [address] Electrolyte Balance 9.0 mEq/L Normal 4.0-15.0 [facility] ([place] Comment on above: Performed By: #### B MP, GFR, PRO ####[place] [address] Glucose mass conc 103 mg/dL Normal 82-115 [facility] ([place] Comment on above: Performed By: #### B MP, GFR, PRO ####[place] [address] Potassium molar conc 4.3 mmol/L Normal 3.5-5.0 On license of [facility] ([place] Comment on above: Performed By: #### B MP, GFR, PRO ####[place] [address] Sodium 140 mmol/L Normal 136-145 [facility] ([place] Comment on above: Performed By: #### B MP, GFR, PRO ####[place] [address] Urea nitrogen 16.0 mg/dL Normal 8.0-22.0 [facility] ([place] Comment on above: Performed By: #### B MP, GFR, PRO ####[place] [address] Cardiac Catheterization - CV on 08-20-2017 Cardiac Catheterization - CV Normal [facility] ([place] PROon 08-20-2017 INR Coag RelTime (PPP) 1.0 {INR} Normal [facility] ([place] Comment on above: Result Comment: The [place] [employer] (CHEST, 1992, 102:312S-25S)recommended therapeutic range for oral anticoagulant therapy is:LOW RISK: Prophylaxis of venous thrombosis INR: 2.0-3.0 Treatment of pulmonary embolism 2.0-3.0 Prevention of systemic embolism 2.0-3.0HIGH RISK: Mechanical prosthetic valves 2.5-3.5 Performed By: #### B MP, GFR, PRO ####[place] [address] Prothrombin time (PT) Coag time (PPP) 11.9 s Normal 9.0-14.5 [facility] ([place] Comment on above: Result Comment: Effe ctive 12/14/07, Protime results may be affected by some antibiotics (i.e. Ciprofloxacin, Azithromycin, Bactrim) which may potentiate the action of oral anticoagulants, with further increases in Protime/INR. Performed By: #### B MP, GFR, PRO ####[address] Stress Teston 08-12 [place] Stress Test Normal On license of [facility] ([place]) NM MYOCARDIAL SPECT STRESS/R ESTon 08-11-2017 NM MYOCARDIAL SPECT STRESS/REST ORIGINALNM MYOCARDIAL SPECT STRESS/REST CLINICAL STATEMENT: CAD,SOB TECHNIQUE:Lexiscan dose:0.4 mgRadiopharmaceutical (stress): Tc-99m Sestamibi Dose:32.4 mCi Radiopharmaceutical (rest): Tc-99m Sestamibi Dose:10.6 mCi SPECT acquisition and processingReconstruction and reorientation of SPECT images into short [...] the apex. There is improvement noted in the anterior and anterolateral wall on rest images. There additionally appears to be improvement in the uptake of activity in the mid inferior wall on rest images. IMPRESSION:1. Reversible defect in the anterior, anterolateral and mid inferior wall suggesting ischemia in this area.2. The ejection fraction is 45% with basal inferior wall hypokinesis. Interpreted By: Kareem Recinosreliminary Report By: Kareem Recinos MDElectronically Signed By: Kareem Recinos MD Dictated Date: 08/11/2017 3:01:10 PM Prelim Date: 08/11/2017 3:01:10 PM Sign Date: 08/11/2017 3:06:03 PM Normal [facility] ([place] .Auto Diffon 08-06-2017 Basophils Auto #/vol (Bld) 0.10 10 3/mcL Normal 0.00-0.19 [facility] ([place]) Comment on above: Performed By: #### C VIVIANA, MAXIMO, ANEU, BMP, GFR ####[address] [place], [place] [address] Basophils/100 WBC Auto (Bld) 0.8 % Normal 0.0-2.5 [facility] ([place] Comment on above: Performed By: #### C BC, MAXIMO, ANEU, BMP, GFR ####[address] [place], [place] [address] Eosinophils 0.50 10 3/mcL High 0.00-0.40 [facility] ([place] Comment on above: Performed By: #### C BC, ADIFF, ANEU, BMP, GFR ####[address] [place], [place] [address] Eosinophils/100 leukocytes 4.6 % Normal 0.0-7.0 [facility] ([place] Comment on above: Performed By: #### C BC, ADIFF, ANEU, BMP, GFR ####[address] [place], [place] [address] Lymphocytes 3.10 10 3/mcL Normal 0.77-3.85 [facility] ([place] Comment on above: Performed By: #### C BC, ADIFF, ANEU, BMP, GFR ####[address] [place], [place] [address] Lymphocytes/100 leukocytes 27.7 % Normal 10.0-50.0 [facility] ([place] Comment on above: Performed By: #### C BC, ADIFF, ANEU, BMP, GFR ####[address] [place], [place] [address] Monocytes 0.70 10 3/mcL Normal 0.15-1.00 [facility] ([place] Comment on above: Performed By: #### C BC, ADIFF, ANEU, BMP, GFR ####[address] [place], [place] [address] Monocytes/100 leukocytes 6.0 % Normal 1.7-13.0 [facility] ([place] Comment on above: Performed By: #### C BC, ADIFF, ANEU, BMP, GFR ####[address] [place], [place] [address] Neutrophils/100 WBC Auto (Bld) 60.9 % Normal 37.0-80.0 [facility] ([place] Comment on above: Performed By: #### C BC, ADIFF, ANEU, BMP, GFR ####[address] [place], [place] [address] .GFRon 08-06-2017 eGFR (non-black) 51 ml/min/1.73sqm Normal [facility] ([place] Comment on above: Result Comment: GFR Population mean for , Non- Americans Ages 20-29 = 116 mL/min/1.73 sq.m. Ages 30-39 = 107 mL/min/1.73 sq.m. Ages 40-49 = 99 mL/min/1.73 sq.m. Ages 50-59 = 93 mL/min/1.73 sq.m. Ages 60-69 = 85 mL/min/1.73 sq.m. Ages 70+ = 75 mL/min/1.73 sq.m.Chronic Kidney Disease: Less than 60 mL/min/1.73 square metersEnd Stage Renal Disease: Less than 15 mL/min/1.73 square meters Performed By: #### C BC, ADIFF, ANEU, BMP, GFR ####[address] [place], [place] [address] eGFR (non-black) 62 ml/min/1.73sqm Normal [facility] [place] Comment on above: Result Comment: GFR Population mean for , Non- Americans Ages 20-29 = 116 mL/min/1.73 sq.m. Ages 30-39 = 107 mL/min/1.73 sq.m. Ages 40-49 = 99 mL/min/1.73 sq.m. Ages 50-59 = 93 mL/min/1.73 sq.m. Ages 60-69 = 85 mL/min/1.73 sq.m. Ages 70+ = 75 mL/min/1.73 sq.m.Chronic Kidney Disease: Less than 60 mL/min/1.73 square metersEnd Stage Renal Disease: Less than 15 mL/min/1.73 square meters Performed By: #### C BC, ADIFF, ANEU, BMP, GFR ####[address] [place], [place] [address] .NEUABSon 08-06-2017 Neutrophils 6.80 10 3/mcL High 2.85-6.16 [facility] ([place] Comment on above: Performed By: #### C BC, ADIFF, ANEU, BMP, GFR ####[address] [place], [place] [address] BMPon 08-06-2017 BUN/Creatinine Ratio 11 ratio Normal 7-27 On license of [facility] ([place]) Comment on above: Performed By: #### C BC, ADIFF, ANEU, BMP, GFR ####[address] [place], [place] [address] Calcium 9.7 mg/dL Normal 8.4-10.2 [facility] ([place] Comment on above: Performed By: #### C BC, ADIFF, ANEU, BMP, GFR ####[address] [place], [place] [address] Chloride 106 mmol/L Normal 98-107 [facility] ([place] Comment on above: Performed By: #### C BC, ADIFF, ANEU, BMP, GFR ####[address] [place], [place] [address] CO2 26 mmol/L Normal 23-31 [facility] ([place] Comment on above: Performed By: #### C BC, ADIFF, ANEU, BMP, GFR ####[address] [place], [place] [address] Creatinine 1.4 mg/dL High 0.6-1.2 [facility] ([place] Comment on above: Performed By: #### C BC, ADIFF, ANEU, BMP, GFR ####[address] [place], [place] [address] Electrolyte Balance 10.0 mEq/L Normal [facility] ([place] Comment on above: Performed By: #### C BC, ADIFF, ANEU, BMP, GFR ####[address] [place], [place] [address] Glucose mass conc 104 mg/dL Normal 80-115 [facility] ([place] Comment on above: Performed By: #### C BC, ADIFF, ANEU, BMP, GFR ####[address] [place], [place] [address] Potassium molar conc 5.2 mmol/L High 3.5-5.1 On license of [facility] ([place]) Comment on above: Performed By: #### C BC, ADIFF, ANEU, BMP, GFR ####[address] [place], [place] [address] Sodium 142 mmol/L Normal 136-146 [facility] ([place] Comment on above: Performed By: #### C BC, ADIFF, ANEU, BMP, GFR ####[address] [place], [place] [address] Urea nitrogen 15.1 mg/dL Normal 7.0-18.0 [facility] ([place] Comment on above: Performed By: #### C BC, ADIFF, ANEU, BMP, GFR ####[address] [place], [place] [address] CBCon 08-06-2017 Erythrocyte distribution width Auto Ratio (RBC) 13.7 % Normal 11.5-14.5 [facility] ([place] Comment on above: Performed By: #### C BC, ADIFF, ANEU, BMP, GFR ####[address] [place], [place] [address] Erythrocytes (RBC) 5.34 10 6/mcL Normal 4.04-6.13 [facility] ([place] Comment on above: Performed By: #### C BC, ADIFF, ANEU, BMP, GFR ####[address] [place], [place] [address] Hematocrit (HCT) 49.4 % Normal 42.0-52.0 [facility] ([place] Comment on above: Performed By: #### C BC, ADIFF, ANEU, BMP, GFR ####[address] [place], [place] [address] Hemoglobin mass conc (Bld) 16.3 G/dL Normal 14.0-18.0 [facility] ([place] Comment on above: Performed By: #### C BC, ADIFF, ANEU, BMP, GFR ####[address] [place], [place] [address] MCH 30.5 pg Normal 27.0-31.2 [facility] ([place] Comment on above: Performed By: #### C BC, ADIFF, ANEU, BMP, GFR ####[address] [place], [place] [address] MCHC mass conc (RBC) 33.0 G/dL Normal 31.8-35.4 On license of [facility] ([place] Comment on above: Performed By: #### C BC, ADIFF, ANEU, BMP, GFR ####[address] [place], [place] [address] MCV 92.5 fL Normal 80.0-94.0 [facility] [place] Comment on above: Performed By: #### C BC, ADIFF, ANEU, BMP, GFR ####[address] [place], [place] [address] Platelet mean volume (PMV) 8.3 fL Normal 7.4-10.4 [facility] ([place] Comment on above: Performed By: #### C BC, ADIFF, ANEU, BMP, GFR ####[address] [place], [place] [address] Platelets 297 10 3/mcL Normal 130-400 [facility] ([place] Comment on above: Performed By: #### C BC, ADIFF, ANEU, BMP, GFR ####[address] [place], [place] [address] WBC (Leukocytes) 11.20 10 3/mcL High 4.60-10.80 On license of [facility] ([place]) Comment on above: Performed By: #### C BC, ADIFF, ANEU, BMP, GFR ####[address] [place], [place] [address] Vital Signs Date Time Vital Sign Value Performing Clinician Agata lobo 12-21-2023 11:03040 Body height 177.8 cm Brenda Marin MD Work Phone: [facility] 12-21-2023 11:030400 Body mass index (BMI) [Ratio] 27.03 kg/m2 Brenda Marin MD Work Phone: [facility] 12-21-2023 11:03040 Body weight 85.46 kg Brenda Marin MD Work Phone: [facility] 12-21-2023 11:03-0400 Diastolic blood pressure 69 mm[Hg] Brenda Marin MD Work Phone: [facility] 12-21-2023 11:03-0400 Heart rate 64 /min Brenda Marin MD Work Phone: [facility] 12-21-2023 11:03-0400 SaO2% (BldA) [Mass fraction] 93 % Brenda Marin MD Work Phone: [facility] 12-21-2023 11:03-0400 Systolic blood pressure 141 mm[Hg] Brenda Marin MD Work Phone: [facility] 05-27-2023 13:30-0500 Body weight 85.[address] Annika Villasenor Work Phone: [facility] 05-27-2023 13:30-0500 Diastolic blood pressure 67 mm[Hg] Dr. Annika Villasenor Work Phone: [facility] 05-27-2023 13:30-0500 Heart rate 66 /min Dr. Annika Villasenor Work Phone: [facility] 05-27-2023 13:30-0500 Respiratory rate 16 /min Dr. Annika Villasenor Work Phone: [facility] 05-27-2023 13:30-0500 SaO2% (BldA) [Mass fraction] 99 % Dr. Annika Villasenor Work Phone: [facility] 05-27-2023 13:30-0500 Systolic blood pressure 131 mm[Hg] Dr. Annika Villasenor Work Phone: [facility] 04-22-2023 12:55-0500 Diastolic blood pressure 84 mm[Hg] [facility] 04-22-2023 12:55-0500 Heart rate 79 /min [facility] 04-22-2023 12:55-0500 Respiratory rate 16 /min [facility] 04-22-2023 12:55-0500 SaO2% (BldA) [Mass fraction] 95 % [facility] 04-22-2023 12:55-0500 Systolic blood pressure 131 mm[Hg] [facility] 04-22-2023 08:21-0500 Body height 177.8 cm [facility] 04-22-2023 08:21-0500 Body mass index (BMI) [Ratio] 26.6 kg/m2 [facility] 04-22-2023 08:21-0500 Body temperature 97.5 [degF] [facility] 04-22-2023 08:21-0500 Body weight 84.08 kg [facility] 12-08-2022 11:22-0400 Body weight 84.82 kg Brenda Marin MD Work Phone: [facility] 12-08-2022 11:22-0400 Diastolic blood pressure 80 mm[Hg] Brenda Marin MD Work Phone: [facility] 12-08-2022 11:22-0400 Heart rate 73 /min Brenda Marin MD Work Phone: [facility] 12-08-2022 11:22-0400 SaO2% (BldA) [Mass fraction] 99 % Brenda Marin MD Work Phone: [facility] 12-08-2022 11:22-0400 Systolic blood pressure 156 mm[Hg] Brenda Marin MD Work Phone: [facility] 08-14-2022 15:22-0400 SaO2% (BldA) [Mass fraction] 96 % Dr. Annika Villasenor Work Phone: [facility] 08-14-2022 15:00-0400 Body temperature 98.1 [degF] Dr. Annika Villasenor Work Phone: [facility] 08-14-2022 15:00-0400 Diastolic blood pressure 55 mm[Hg] Dr. Annika Villasenor Work Phone: [facility] 08-14-2022 15:00-0400 Heart rate 62 /min Dr. Annika Villasenor Work Phone: [facility] 08-14-2022 15:00-0400 Respiratory rate 18 /min Dr. Annika Villasenor Work Phone: [facility] 08-14-2022 15:00-0400 Systolic blood pressure 142 mm[Hg] Dr. Annika Villasenor Work Phone: [facility] 08-13-2022 19:34-0400 Body height 180.[address] Annika Villasenor Work Phone: [facility] 08-13-2022 19:34-0400 Body mass index (BMI) [Ratio] 26.7 kg/m2 Dr. Annika Villasenor Work Phone: [facility] 08-13-2022 19:34-0400 Body weight [address] Annika Villasenor Work Phone: [facility] 08-13-2022 18:30-0400 Diastolic blood pressure 69 mm[Hg] Dr. Annika Villasenor Work Phone: [facility] 08-13-2022 18:30-0400 Respiratory rate 16 /min Dr. Annika Villasenor Work Phone: [facility] 08-13-2022 18:30-0400 SaO2% (BldA) [Mass fraction] 96 % Dr. Annika Villasenor Work Phone: [facility] 08-13-2022 18:30-0400 Systolic blood pressure 171 mm[Hg] Dr. Annika Villasenor Work Phone: [facility] 08-13-2022 17:37-0400 Body temperature 98 [degF] Dr. Annika Villasenor Work Phone: [facility] 08-13-2022 17:37-0400 Heart rate 63 /min Dr. Annika Villasenor Work Phone: [facility] 08-13-2022 10:07-0400 Body mass index (BMI) [Ratio] 27.1 kg/m2 Dr. Annika Villasenor Work Phone: [facility] 08-13-2022 10:07-04[address] Body weight [address] Annika Villasenor Work Phone: [facility] 08-13-2022 09:16-0400 Body height 180.[address] Annika Villasenor Work Phone: [facility] 06-09-2022 14:32-0500 Body weight 85.73 kg Brenda Marin MD Work Phone: [facility] 06-09-2022 14:32-0500 Diastolic blood pressure 70 mm[Hg] Brenda Marin MD Work Phone: [facility] 06-09-2022 14:32-0500 Heart rate 98 /min Brenda Marin MD Work Phone: [facility] 06-09-2022 14:32-0500 SaO2% (BldA) [Mass fraction] 57 % Brenda Marin MD Work Phone: [facility] 06-09-2022 14:32-0500 Systolic blood pressure 182 mm[Hg] Brenda Marin MD Work Phone: [facility] 01-18-2022 01:22-0400 Diastolic blood pressure 67 mm[Hg] [facility] Work Phone: 01-18-2022 01:22-0400 Heart rate 58 /min [facility] Work Phone: 01-18-2022 01:22-0400 Respiratory rate 15 /min [facility] Work Phone: 01-18-2022 01:22-0400 SaO2% (BldA) [Mass fraction] 97 % [facility] Work Phone: 01-18-2022 01:22-0400 Systolic blood pressure 148 mm[Hg] [facility] Work Phone: 01-17-2022 20:13-0400 Body height 177.8 cm [facility] Work Phone: 01-17-2022 20:13-0400 Body mass index (BMI) [Ratio] 27.2 kg/m2 [facility] Work Phone: 01-17-2022 20:13-0400 Body temperature 97.7 [degF] [facility] Work Phone: 01-17-2022 20:13-0400 Body weight 86.18 kg [facility] Work Phone: 12-31-2021 02:37-0400 Diastolic blood pressure 71 mm[Hg] [facility] Work Phone: 12-31-2021 02:37-0400 Heart rate 66 /min [facility] Work Phone: 12-31-2021 02:37-0400 Respiratory rate 15 /min [facility] Work Phone: 12-31-2021 02:37-0400 SaO2% (BldA) [Mass fraction] 92 % [facility] Work Phone: 12-31-2021 02:37-0400 Systolic blood pressure 179 mm[Hg] [facility] Work Phone: 12-31-2021 00:30-0400 Body height 177.8 cm [facility] Work Phone: 12-31-2021 00:30-0400 Body mass index (BMI) [Ratio] 27.2 kg/m2 [facility] Work Phone: 12-31-2021 00:30-0400 Body temperature 96.4 [degF] [facility] Work Phone: 12-31-2021 00:30-0400 Body weight 86.18 kg [facility] Work Phone: Encounters Encounter Date Encounter Type Care Provider Facility Start: 07-12-2024 End: 07-12-2024 ambulatory Annika Miedel Facility:[facility] Start: 03-24-2024 End: 03-24-2024 ambulatory Annika Miedel Facility:[facility] Start: 03-24-2024 Encounter for preprocedural cardiovascular examination Jarred Waddell [facility] Start: 03-10-2024 End: 03-10-2024 ambulatory Annika Miedel Facility:[facility] Start: 03-07-2024 ambulatory Annika Miedel Facility: [facility] Start: 03-07-2024 ambulatory Annika Miedel Facility: [facility] Start: 03-07-2024 ambulatory Annika Miedel Facility: [facility] Start: 03-07-2024 End: 03-11-2024 Evaluation and management of inpatient Annika Ruthedel Facility:[facility] Start: 03-05-2024 End: 03-05-2024 Emergency department patient visit Annika Danielel Facility:[facility] Start: 02-29-2024 End: 02-29-2024 ambulatory [facility] Facility:[facility] Start: 02-22-2024 End: 02-22-2024 [facility] Start: 01-13-2024 End: 01-13-2024 ambulatory [facility] Facility:[facility] Start: 01-06-2024 End: [facility]-06[facility] Start: 12-21-2023 End: 12-21-2023 ambulatory BRENDA MARIN Facility:[facility] Start: 12-21-2023 End: 12-21-2023 Patient encounter procedure Brenda Marin MD Work Phone: Cardiology Comment on above: Chronic combined sys tolic and diastolic CHF (congestive heart failure) (HCC) (Primary Dx); Hx of CABG; Atherosclerosis of [place] artery of right lower extremity with intermittent claudication (HCC); Screening for ischemic heart disease Start: 12-15-2023 End: 12-15-2023 Emergency department patient visit Nomi Garcia Facility:[facility] Start: 10-31-2023 End: 10-31-2023 Emergency department patient visit Nomi Garcia Facility:[facility] Start: 07-09-2023 End: 07-09-[address] Annika Villasenor Work Phone: [facility] Work Phone: Start: 07-09-2023 End: 07-09-[address] Annika Villasenor Work Phone: [facility] Work Phone: Start: 05-27-2023 End: 05-27-[address] Annika Villasenor Work Phone: [facility] Work Phone: Start: 05-04-2023 End: 05-04-[address] Annika Villasenor Work Phone: [facility] Work Phone: Start: 04-22-2023 End: 04-22-2023 [facility] Start: 12-08-2022 End: 12-08-2022 Patient encounter procedure Brenda Marin MD Work Phone: Cardiology Comment on above: Hx of CABG (Primary Dx); Chronic combined systolic and diastolic CHF (congestive heart failure) ([facility]); Atherosclerosis of [place] artery of right lower extremity with intermittent claudication ([facility]); Post PTCA; PVD (peripheral vascular disease) ([facility]) Start: 10-01-2022 End: 10-01-[address] Annika Villasenor Work Phone: [facility] Start: 09-30-2022 End: 09-30-[address] Annika Villasenor Work Phone: [facility] Work Phone: Start: 09-30-2022 End: 09-30-[address] Annika Villasenor Work Phone: [facility] Start: 09-23-2022 End: 09-23-[address] Annika Villasenor Work Phone: [facility] Start: 08-14-2022 Non-patient / Non-visit Dr. Jeff Villasenor Work Phone: [facility] Start: 08-13-2022 End: 08-14-2022 Evaluation and management of inpatient Dr. Annika Villasenor Work Phone: [facility] 3 Start: 08-13-2022 End: 08-14-[address] Annika Villasenor Work Phone: [facility] Work Phone: Start: 08-13-2022 Non-patient / Non-visit Dr. Jeff Villasenor Work Phone: [facility] Start: 06-18-2022 Telephone encounter Zunilda Christine APRN.CNP Work Phone: [facility] Cardiology [place] Comment on above: Results Start: 06-09-2022 End: 06-09-2022 Patient encounter procedure Brenda Marin MD Work Phone: Cardiology Comment on above: Screening for ischem ic heart disease (Primary Dx); Nicotine use disorder, F17.2; Shortness of breath; Hx of CABG; Post PTCA; Atherosclerosis of [place] artery of right lower extremity with intermittent claudication (HCC) Start: 02-20-2022 End: 02-20-2022 ambulatory [facility] Work Phone: Start: 02-20-2022 End: 02-20-2022 Patient encounter procedure [facility] Start: 01-17-2022 End: 01-18-2022 Emergency department patient visit [facility] Start: 01-02-2022 Telephone encounter Omer Geronimo MD Work Phone: Cardiology Comment on above: Patient Update Start: 12-31-2021 End: 12-31-2021 Emergency department patient visit [facility] Start: 09-07-2020 End: 09-07-[address] ARIANNE LOPEZ [facility] Start: 08-10-2020 End: 08-10-[address] ARIANNE LOPEZ [facility] Start: 08-20-2017 End: 08-21-2017 Ambulatory VIRGINIA LAMBERT Facility:A Start: 08-11-2017 End: 08-12-2017 Ambulatory OMER MATHUR Facility:B Start: 08-06-2017 End: 08-07-2017 Ambulatory OMER MATHUR Facility:B Procedures Date Procedure Procedure Detail Performing Clinician Start: 04-22-2023 Computed tomography angiography of abdominal and/or pelvic blood vessel Start: 08-13-2022 US scan of gallbladder Dr. Annika Villasenor Work Phone: Start: 08-13-2022 CT of thorax, abdomen and pelvis with contrast Dr. Annika Villasenor Work Phone: Start: 06-09-2022 History of coronary artery bypass grafting Hx of CABG Brenda Marin MD Work Phone: Start: 02-20-2022 MRI of abdominal vessels Start: 02-20-2022 X-ray of eye for foreign body Start: 12-31-2021 Computed tomography of abdomen and pelvis with intravenous contrast Start: 07-18-2019 Lipid 1996 panel - Serum or Plasma Brenda Marin MD Work Phone: Start: 01-31-2019 Electrocardiogram Start: 01-30-2019 Electrocardiogram History of coronary artery bypass grafting S/P CABG (coronary artery bypass graft) History of coronary artery bypass grafting Hx of CABG Brenda Marin MD Work Phone: History of coronary artery bypass grafting Hx of CABG Brenda Marin MD Work Phone: Plan of Treatment Date Care Activity Detail Author Start: 12-19-2024 End: 12-19-2024 Patient encounter procedure 12/19/2024 10:20 AM EDT Office Visit Cardiology [address] [place] [address] Brenda Marin MD [address], [address] [place] [address] 1 year follow up Cardiology Comment on above: 1 year follow up Start: 07-18-2024 Lipid panel Lipid Screening [facility] Start: 07-18-2024 LIPID SCREEN LIPID SCREEN [facility] Start: 01-31-2024 Influenza vaccination Influenza Vacc ine (#1) [facility] Start: 12-21-2023 End: 12-16-2024 ECG COMPLETE ECG COMPLETE ECG Routine Chronic combined systolic and diastolic CHF (congestive heart failure) (HCC) Hx of CABG Atherosclerosis of [place] artery of right lower extremity with intermittent claudication (HCC) Screening for ischemic heart disease Expected: 12/21/2023, Expires: 12/16/2024 [facility] Work Phone: Comment on above: Expected: 12/21/2023 , Expires: 12/16/2024 Start: 06-01-2023 Advance Directive Discussion Advance Directive Discussion [facility] Start: 06-01-2023 Behavioral Health Screening Behavioral Health Screening [facility] Start: 04-22-2023 [facility] Start: 01-30-2023 Covid-19 Vaccine ( season) Covid-19 Vaccine ( season) [facility] Start: 01-30-2023 Influenza vaccination INFLUENZA (#1) [facility] Start: 08-14-2022 Patient discharge [facility] Start: 08-13-2022 Assessment of risk o f venous thromboembolism [facility] Start: 08-13-2022 Insertion of cathete r into peripheral vein [facility] Start: 08-13-2022 Providing care accor ding to standard [facility] Start: 08-13-2022 Provision of activit y privileges [facility] Start: 08-13-2022 Following clinical pathway protocol [facility] Start: 08-13-2022 Serum immunofixation [facility] Start: 08-13-2022 End: 08-13-2022 [facility] Start: 08-13-2022 Verification routine Wo arnaldo [facility] Start: 08-13-2022 Admission procedure Nichole [facility] Start: 07-18-2022 DIABETES SCREEN DIABETES SCREEN [facility] Start: 07-18-2022 Diabetes Screening Diabetes Screenin g [facility] Start: 06-01-2022 ADVANCE DIRECTIVE DISCUSSION ADVANCE DIRECTIVE DISCUSSION [facility] Start: 06-01-2022 DEPRESSION ASSESSMENT DEPRESSION ASS ESSMENT [facility] Start: 01-30-2022 Influenza vaccination INFLUENZA (#1) [facility] Start: 06-01-2021 ADVANCE DIRECTIVE DISCUSSION ADVANCE DIRECTIVE DISCUSSION [facility] Start: 02-07-2021 COVID-19 VACCINE (3 - Booster for Moderna series) COVID-19 VACCINE (3 - Booster for Moderna series) [facility] Start: 11-02-2020 COVID-19 VACCINE (3 - Booster for Moderna series) COVID-19 VACCINE (3 - Booster for Moderna series) [facility] Start: 11-02-2020 COVID-19 VACCINE (3 - Moderna series) COVID-19 VACCINE (3 - Moderna series) [facility] Start: 2020 PNEUMOCOCCAL: 65+ (1 - PCV) PNEUMOCOCCAL: 65+ (1 - PCV) [facility] Start: 2015 RSV Vaccine (1 - 1-d ose 60+ series) RSV Vaccine (1 - 1-dose 60+ series) [facility] Start: 2010 PROSTATE CANCER SCRE ENING DISCUSSION PROSTATE CANCER SCREENING DISCUSSION [facility] Start: 2010 Prostate specific an tigen measurement Prostate Cancer Screening Discussion [facility] Start: 2005 SHINGRIX VACCINE (1 of 2) CAPONE GRIX VACCINE (1 of 2) [facility] Start: 2000 COLOGUARD (FIT-DNA) COLOGUARD (FIT-D NA) [facility] Start: 2000 Colonoscopy COLONOSCOPY [facility] Start: 2000 COLORECTAL CANCER SCREENING COLORECTAL CANCER SCREENING [facility] Start: [address] COLONOGRAPHY [facility] Start: 2000 FECAL OCCULT BLOOD FECAL OCCULT BLOO D [facility] Start: 2000 Screening for malign ant neoplasm of colon [facility] Start: 2000 SIGMOIDOSCOPY SIGMOIDOSCOPY [facility] Start: 1974 Urine microalbumin profile [facility] Start: 1973 ANNUAL PCP TEAM [employer] CAIO DISEASE VISIT ANNUAL PCP TEAM CHRONIC DISEASE VISIT [facility] Start: 1973 HEPATITIS C SCREENING HEPATITIS C [facility] Start: 1973 Hepatitis C screening Hepatitis C [facility] Start: 1967 Adult depression screening assessment DEPRESSION SCREENING [facility] Start: 1961 Pneumococcal Vaccine : 65+ (1 of 2 - PCV) Pneumococcal Vaccine: 65+ (1 of 2 - PCV) [facility] Start: 1961 PNEUMOCOCCAL: 65+ (1 - PCV) PNEUMOCOCCAL: 65+ (1 - PCV) [facility] Start: 1955 ABDOMINAL AORTIC ANE URYSM SCREENING ABDOMINAL AORTIC ANEURYSM SCREENING [facility] Start: 1955 Abdominal aortic ane urysm screening Abdominal Aortic Aneurysm Screening [facility] Albumin [Moles/volum e] in Serum or Plasma [facility] Albumin [Moles/volum e] in Serum or Plasma [facility] Albumin/Globulin ratio [facility] Albumin/Globulin ratio [facility] Antibody to lupus [place] protein measurement [facility] Antibody to SS-A measurement [facility] Bilirubin measuremen t, urine [facility] Work Phone: C reactive protein [Mass/volume] in Serum or Plasma [facility] Centromere protein B Ab [Units/volume] in Serum [facility] Chromatin Ab [Units/volume] in Serum or Plasma [facility] DNA double strand Ab [Units/volume] in Serum [facility] End: 05-22-2023 ECG COMPLETE ECG COMPLETE ECG Routine Screening for ischemic heart disease Nicotine use disorder, F17.2 1 Occurrences starting 05/22/2022 until 05/22/2023 [facility] Work Phone: Comment on above: 1 Occurrences starti ng 05/22/2022 until 05/22/2023 End: 06-09-2023 Echocardiography ECHO Cardiology Routine Shortness of breath 1 Occurrences starting 06/09/2022 until 06/09/2023 [facility] Work Phone: Comment on above: 1 Occurrences starti ng 06/09/2022 until 06/09/2023 Electrophoresis: [id number] [facility] Electrophoresis: [id number] [facility] Electrophoresis: dustin ma globulin [facility] Electrophoresis: dustin ma globulin [facility] Erythrocyte sediment ation rate [facility] Globulin measurement [facility] Globulin measurement [facility] Hemoglobin [Presence ] in Urine [facility] Work Phone: IgA [Mass/volume] in Serum or Plasma [facility] IgA [Mass/volume] in Serum or Plasma [facility] IgG [Mass/volume] in Serum or Plasma [facility] IgG [Mass/volume] in Serum or Plasma [facility] IgM [Mass/volume] in Serum or Plasma [facility] IgM [Mass/volume] in Serum or Plasma [facility] Brynn-1 extractable nuc lear Ab [Units/volume] in Serum [facility] Lactate dehydrogenas e measurement [facility] Lactic acid measurement [facility] Measurement of keton es in urine using dipstick [facility] Work Phone: Microscopic urinalysis [facility] Work Phone: Neutrophil cytoplasm ic Ab.classic [Units/volume] in Serum [facility] Neutrophil cytoplasm ic Ab.classic [Units/volume] in Serum [facility] P-ANCA measurement [facility] P-ANCA measurement [facility] Patient Education [facility] Work Phone: Patient referral [facility] Work Phone: pH of Urine [facility] Work Phone: Protein electrophore sis panel - Serum or Plasma [facility] Protein electrophore sis panel - Serum or Plasma [facility] End: 06-09-2023 PVR ANK PRESS [facility] PVR ANK PR[facility] Vascular Lab Routine Atherosclerosis of [place] artery of right lower extremity with intermittent claudication (HCC) 1 Occurrences starting 06/09/2022 until 06/09/2023 [facility] Work Phone: Comment on above: 1 Occurrences starti ng 06/09/2022 until 06/09/2023 End: 06-09-2023 PVR LEG W/EXC [facility] PVR LEG W/EXC [facility] Vascular Lab Routine Atherosclerosis of [place] artery of right lower extremity with intermittent claudication (HCC) 1 Occurrences starting 06/09/2022 until 06/09/2023 [facility] Work Phone: Comment on above: 1 Occurrences starti ng 06/09/2022 until 06/09/2023 SCL-70 extractable nuclear Ab [Units/volume] in Serum by Immunoassay [facility] Serum protein electrophoresis [facility] Serum protein electrophoresis [facility] Gao extractable nu clear Ab [Presence] in Serum [facility] Specific gravity of Urine [facility] Work Phone: Urinalysis, blood, qualitative [facility] Work Phone: Urine dipstick for glucose [facility] Work Phone: Urine dipstick for leukocyte esterase [facility] Work Phone: Urine dipstick for nitrite [facility] Work Phone: Urine dipstick for protein [facility] Work Phone: Urine examination [facility] Work Phone: Urine microscopy: epithelial cells [facility] Work Phone: Urine Microscopy: wh ite cells [facility] Work Phone: Urobilinogen [Presen ce] in Urine [facility] Work Phone: [facility] Immunizations Immunization Date Immunization Notes Care Provider Fredrick isabel 09-07-2020 Covid (Moderna) [facility] 08-10-2020 Covid (Moderna) [facility] Payers Date Payer Category Payer Unknown [id number] 2023 Self-pay [id number] 2020 Unknown ANTHEM BLUE CROS S AND BLUE SHIELD ANTHEM MEDIBLUE ACCESS [id number] 2020-Present [phone] [address] [place] [address] PPO [id number] 2020 Unknown [id number] 2020 Medicare [id number] 2017 Medicare [id number] 1955 Unknown [id number] 1955 Unknown [id number] Medicare [id number] Unknown [facility] *DO NOT USE* [id number] Unknown [id number] Unknown [id number] [id number] Unknown [id number] 2.840.1.861133.3.579.2.462 Unknown [id number] 2.840.1.780055.3.579.2.462 Unknown [id number] 2.840.1.502153.3.579.2.462 Unknown [id number] 2.16840.1.133186.3.579.2.462 Unknown [id number] 2.16840.1.893581.3.579.2.462 Unknown [id number] 2.16840.1.938539.3.579.2.462 Unknown [id number] 2.16840.1.695796.3.579.2.462 Unknown [id number] 2.16840.1.507871.3.579.2.462 Unknown [id number] 2.16.840.1.334517.3.579.2.462 Unknown [id number] 2.16.840.1.343115.3.579.2.462 Unknown [id number] 2.16.840.1.685301.3.579.2.462 Unknown [id number] 2.16.840.1.580121.3.579.2.462 Unknown [id number] 2.16.840.1.144200.3.579.2.462 Unknown [id number] 2.16.840.1.682583.3.579.2.462 Unknown [id number] 2.16840.1.655613.3.579.2.462 Unknown [id number] 2.16.840.1.778974.3.579.2.462 Unknown [id number] 2.16840.1.130735.3.579.2.462 Unknown [id number] 2.16840.1.817715.3.579.2.462 Unknown [id number] 2.16840.1.231129.3.579.2.462 Social History Date Type Detail Facility Start: 12-31-2021 End: 05-27-2023 Tobacco smoking status [facility] Unknown if ever smoked [facility] Start: 07-04-2019 None [facility] Start: 07-04-2019 Alone [facility] Start: 1955 Sex Assigned At Male [facility] Start: 04-04-2019 End: 06-09-2022 Tobacco smoking status NHIS Ex-smoker [facility] End: 01-30-2019 History of tobacco use Current smoker [facility] End: 01-30-2019 History of tobacco use Cigarette Smoker [facility] Start: 04-04-2019 End: 06-09-2022 Tobacco use and exposure Smokeless tobacco non-user [facility] Start: 08-01-2019 End: 12-21-2023 Alcohol intake Current drinker of alcohol (finding) [facility] Start: 04-04-2019 History SDOH Alcohol Comment social [facility] Start: 04-04-2019 End: 06-09-2022 Tobacco Comment pack every 2-3 days, on and off for 30 years [facility] Start: 1955 Sex Assigned At Not on file [facility] Start: 01-30-2019 End: 12-08-2022 History of Social function [facility] Start: 01-30-2019 End: 12-08-2022 Tobacco use panel [facility] PHQ2 Score 0 [facility] Goals Date Patient Goal Desired Activity /State Functional Status Date Assessment Result Facility 08-14-2022 Functional status Ambulates [facility] Work Phone: Mental Status Date Assessment Result Facility 08-14-2022 Cognitive function Voice/Name [facility] Work Phone: Clinical Notes 01-30-2019 to 03-11-2024 Brenda Marin MD - 12/21/2023 11:21 AM EDT Note Date & Type Note Facility 03-11-2024 Note [facility] Medical Records Department [address] [place] [address] Discharge Summary 03/11/24 1427 MR#: [id number] Acct: [id number] Name: CHEY WALKER Rep #: [id number] : 1955 68 From: Tommy Washington MD PCP: Dr. Annika Villasenor MD Status:DIS IN Location: [place] [address] Providers Date of Admission: 03/07/24 Primary Care Physician: Dr. Annika Villasenor MD Consultations 03/07/24 05:02 Consult: Cardiology Routine Consulting Provider: Michelle Arteaga Reason for Consult: Preop clearance, Acute neha, CAD/PAD notable history EMERGENT Consult: No MD Notified: Yes Date Notified: 03/07/24 Time Notified: 04:43 Method of Notification: Text Consult: General Surgery Routine Consulting Provider: Jarred Waddell Reason for Consult: Acute cholecystitis EMERGENT Consult: No MD Notified: Yes Date Notified: 03/07/24 Time Notified: 04:09 Method of Notification: ED Physician Initiated Reason For Visit: INTRACTABLE ABDOMINAL PAIN Diagnosis Discharge Diagnosis (1) Acute epigastric pain: Status: Acute Code(s): R10.13 - Epigastric pain Medications at Discharge Home Medications clopidogrel 75 mg tablet (Plavix) 75 mg PO QDAY 07/24/17 aspirin 81 mg tablet,delayed release 81 mg PO DAILY@0800 01/30/19 atorvastatin 80 mg tablet 80 mg PO QHS 02/16/19 lisinopril 5 mg tablet 5 mg PO QHS blood pressure 08/08/19 nitroglycerin 0.4 mg sublingual tablet 0.4 mg sublingual Q5-15M PRN Pain, Mild 08/08/19 pantoprazole 40 mg tablet,delayed release 40 mg PO DAILY GERD 03/31/21 omeprazole 40 mg capsule,delayed release 40 mg PO DAILY #30 caps 12/15/23 hydroxychloroquine 200 mg tablet 200 mg PO BID 02/22/24 prednisone 10 mg tablet 10 mg PO DAILY 03/05/24 metoprolol tartrate 25 mg tablet 25 mg PO BID Heart 03/07/24 oxycodone 5 mg tablet 5 mg PO Q4H PRN PRN Pain Score 4-10 3 days #10 tabs 03/11/24 Hospital Course Operations cholecystecomy Procedures 2-D Echocardiogram Summary of Care Provided Minutes Spent on Discharge: 32 Hospital Course: Per HPI: The patient is a 68 y/o M w/ PMHx: CKD stage III unclear subtype, Chronic anemia, Hx ischemic colitis suspected previously secondary to hypoperfusion event, CAD s/p NSTEMI, CABG x 3 and PCI (PCI/VICKIE to LCX/OM2 06/08/19; PCI/stent to LAD, D1 and LCX 09/16), HTN, HLD, AAA status postrepair 1994 with endovascular stenting placed multiple years previously with currently noted 4.7 cm saccular without rupture PAD status post aortoiliac femoral bypass, Rheumatoid arthritis, GERD, Tobacco use, Chronic abdominal pain, recent 03/05/2024 ED visit secondary to recurrent epigastric abdominal pain which has been seen multiple times with associated nausea without emesis with recent upper endoscopy with moderate Schatzki's ring suspicious of duodenal fistula and colonoscopy with nonbleeding ulcer at mucosa of the sigmoid colon with ischemic changes and capsule endoscopy with findings suggestive of celiac versus IBD versus NSAID induced enteritis as well as prior to this recent CTA abdomen and pelvis with pericholecystic fluid suggestive of acute cholecystitis associated with small calcified gallstones with a stable 4.7 cm saccular aneurysm of the infrarenal abdominal aorta with no evidence of any ischemic process with 03/05/2024 abdominal ultrasound with evidence of cholelithiasis with mild gallbladder wall thickening concerning for acute cholecystitis now representing to the [facility] ED on 03/07/2024 as patient during the previous visit despite recommendation for admission per surgeon had left AMA now returning with again ongoing epigastric discomfort and nausea which remains intermittent and has been more frequent over the last week. Patient in the ED reporting pain 1/10 in severity currently following ED interventions and denies any nausea. He notes that these episodes of pain always occur in the early am, often awakening him in his sleep. He ate a sandwich for dinner at 8 pm but again does not seem to worsen after oral intake even by 1-2 hours. He notes the pain is accommodation of dull aching and sharp stabbing. Current workup included T97.7, heart rate 70, BP 2 , respiratory rate 18, 100% room air, CBC with WBC 11.9, hemoglobin 12.9, MCV 92.8, platelet 317 with increased immature granulocytes, CMP with chloride 111, BUN/creatinine 16/1.35, GFR 56, glucose 111, total bilirubin 0.30, AST/ALT 13/17, alk phos 120, lipase 54, lactic acid 2.0. In the ED patient administered 1 L normal saline, Dilaudid 1 mg IV x 1, morphine 4 mg IV x 1, Zofran 4 mg IV x 1 as well as IV Zosyn 3.375 g IV x 1. Hospital Course: 1. Acute cholecystitis status post cholecystectomy on 1009???68-year-old male presented to the hospital with right upper quadrant abdominal pain he had initially presented to the hospital but had left AMA and then had to return because of continued abdominal (more content not included)... [facility] 12-21-2023 Note HNO ID: [id number] Author: BRENDA MARIN MD Service: ? Author Type: Physician Type: Progress Notes Filed: 12/21/2023 11:26 Note Text: Brenda Marin MD Interventional Cardiology [address] [place] [address] [id number] Chief Complaint Patient presents with: Follow Up HISTORY OF PRESENT ILLNESS: Mr. Walker is a 68 year old male seen my office today for follow-up patient had prior history of severe three-vessel coronary artery disease with peripheral vascular disease underwent endovascular grafting for infrarenal abdominal aneurysm with bypass surgery consisted of a ARCE to the LAD with a vein graft to the posterolateral branch of the right and a vein graft to the PDA most recently in 2020 had angioplasty of the LAD and the diagonal and the circumflex after he had non-STEMI elevation NH doing well asymptomatic denies chest pain or shortness of breath Patient is limited because of symptoms related to rheumatoid arthritis Cardiac Risk Factors age (male over 45, female over 55), hyperlipidemia, history of smoking, hypertension, family history of CAD PAST MEDICAL HISTORY Diagnosis Date AAA (abdominal aortic aneurysm) ([facility]) s/p repair Arthritis CAD (coronary artery disease) Cardiomyopathy ([facility]) Heart attack ([facility]) x3 HTN (hypertension) NSTEMI (non-ST elevated myocardial infarction) ([facility]) 01/30/2019 2 prior NH's PAD (peripheral artery disease) ([facility]) PAST SURGICAL HISTORY Procedure Laterality Date CORONARY ARTERY BYPASS GRAFT x3 DIR RPR ANEURYSM ABDOMINAL AORTA 1994 FAMILY HISTORY Problem Relation Age of Onset Rheumatologic disease Mother Ischemic Heart Disease Father dided from NH age 60 other (vascular disease) Father Arthritis Sister Arthritis Sister Social History Tobacco Use Smoking status: Former Years: 30 Types: Cigarettes Quit date: 01/30/2019 Years since [...] Take 75 mg by mouth once daily. No current facility-administered medications for this visit. Review of Systems Constitutional: Negative for chills, [...] does not have insomnia. Physical Examination: Vitals:BP 141/69 Pulse 64 Ht 5' 10 (1.78m) Wt 188 lb 6.4 oz (85.5kg) SpO2 93% BMI 27.03 kg/(m2). BP w/Orthostatic Vitals Date and Time Orthostatic BP Orthostatic Pulse BP Pulse BP Position BP Site BP Cuff Size 12/21/23 1103 -- -- 141/69 64 -- -- -- Last 2 Encounter Wt Readings: Date: Wt: 12/21/2023 85.5 kg (188 lb 6.4 oz) 12/08/2022 84.8 kg (187 lb) Physical Exam Constitutional: General: He is not in acute distress. Appearance: He is not diaphoretic. HENT: Head: Normocephali (more content not included)... [facility] 12-21-2023 History of Present illness Narrative Images from the original note were not included. Brenda Marin MD Interventional Cardiology [address] [address] [phone] Chief Complaint Patient presents with: Follow Up HISTORY OF PRESENT ILLNESS: Mr. Walker is a 68 year old male seen my office today for follow-up patient had prior history of severe three-vessel coronary artery disease with peripheral vascular disease underwent endovascular grafting for infrarenal abdominal aneurysm with bypass surgery consisted of a ARCE to the LAD with a vein graft to the posterolateral branch of the right and a vein graft to the PDA most recently in 2020 had angioplasty of the LAD and the diagonal and the circumflex after he had non-STEMI elevation NH doing well asymptomatic denies chest pain or shortness of breath Patient is limited because of symptoms related to rheumatoid arthritis Cardiac Risk Factors age (male over 45, female over 55), hyperlipidemia, history of smoking, hypertension, family history of CAD PAST MEDICAL HISTORY Diagnosis Date AAA (abdominal aortic aneurysm) ([facility]) s/p repair Arthritis CAD (coronary artery disease) Cardiomyopathy ([facility]) Heart attack ([facility]) x3 HTN (hypertension) NSTEMI (non-ST elevated myocardial infarction) ([facility]) 01/30/2019 2 prior NH's PAD (peripheral artery disease) ([facility]) PAST SURGICAL HISTORY Procedure Laterality Date CORONARY ARTERY BYPASS GRAFT x3 DIR RPR ANEURYSM ABDOMINAL AORTA 1994 FAMILY HISTORY Problem Relation Age of Onset Rheumatologic disease Mother Ischemic Heart Disease Father dided from NH age 60 other (vascular disease) Father Arthritis Sister Arthritis Sister Social History Tobacco Use Smoking status: Former Years: 30 Types: Cigarettes Quit date: 01/30/2019 Years since [...] Take 75 mg by mouth once daily. No current facility-administered medications for this visit. Review of Systems Constitutional: Negative for chills, [...] does not have insomnia. Physical Examination: Vitals:BP 141/69 Pulse 64 Ht 5' 10 (1.78m) Wt 188 lb 6.4 oz (85.5kg) SpO2 93% BMI 27.03 kg/(m^2). BP w/Orthostatic Vitals Date and Time Orthostatic BP Orthostatic Pulse BP Pulse BP Position BP Site BP Cuff Size 12/21/23 1103 -- -- 141/69 64 -- -- -- Last 2 Encounter Wt Readings: Date: Wt: 12/21/2023 85.5 kg (188 lb 6.4 oz) 12/08/2022 84.8 kg (187 lb) Physical Exam Constitutional: General: He is [...] time. Psychiatric: Mood and Affect: Mood normal. Thought Content: Thought content normal. Judgment: [...] results found for: TSHREFL Prior Cardiac Testing None Assessment and Plan: 68 years old gentleman with prior history of coronary artery disease bypass surgery and angioplasty ASSESSMENT/PLAN: 1. Chronic combined systolic and diastolic CHF (congestive heart failure) (HCC) - ICD9: 428.42, 428.0, ICD10: I50.42 (primary diagnosis) - HFpEF 50+ - Continue current medications - ECG COMPLETE 2. Hx of CABG - ICD9: V45.81, ICD10: Z95.1 Stable with no angina continue medical therapy - ECG COMPLETE 3. Atherosclerosis of [place] artery of right lower extremity with intermittent claudication (HCC) - ICD9: 440.21, ICD10: I70.211 Controlled symptoms - ECG COMPLETE 4. Scr Brenda Marin MD Follow up planning: One year Electronically signed by Brenda Marin MD on December 21, 2023, 11:21 AM The above note was partially created using a dictation recognition software. A reasonable attempt has been made to correct any errors. documented in this encounter [facility] 04-22-2023 Discharge summary Note Date/Time April 22, 2023 8:53am [facility] Medical Records Department [address] [place] [address] Emergency Department Summary 04/22/23 MR#: [id number] Acct: [id number] Name: CHEY WALKER Rep #:[id number] : 1955 67 From: Duc London PCP: Dr. Annika Villasenor MD Status:REG ER Location: ED HPI HPI - GI History of Present Illness Chief Complaint: Abd Pain Informant: patient and family Narrative Narrative: Presents here with family sudden pain across his abdomen at 3 AM awakening from sleep. Pain is persistent. No nausea or vomiting. No diarrhea. Last bowel movement yesterday evening was normal. Has daily bowel movements. History of AAA repair years ago. History of coronary disease with bypass on aspirin and Plavix. Denies any other abdominal surgeries. States 6 months ago had some similar with stating something intestinal inflammation. Denies history of pancreatitis, unclear if diverticulitis. Allergies to sulfa. Prior similar symptoms: Yes PFSH PFSH Medical History Arthritis Atherosclerotic heart disease of [place] coronary artery without angina pectoris CAD in [place] artery Cardiomyopathy Essential hypertension Heart disease History of pneumonia HTN (hypertension) Hyperlipidemia Hypertension Ischemic colitis NSTEMI (non-ST elevated myocardial infarction) Old myocardial infarction PAD (peripheral artery disease) Personal history of colonic polyps Presence of stent in coronary artery (~06/08/19) Home Medications clopidogrel 75 mg tablet (Plavix) 150 mg PO QDAY 07/24/17 [History Last Taken Unknown] aspirin 81 mg tablet,delayed release 81 mg PO DAILY@0800 01/30/19 [History Last Taken Unknown] atorvastatin 80 mg tablet 80 mg PO QHS 02/16/19 [History Last Taken Unknown] metoprolol tartrate 25 mg tablet 25 mg PO BID #180 tabs 02/25/19 [Rx Last Taken Unknown] lisinopril 5 mg tablet 5 mg PO QHS blood pressure 08/08/19 [History Last Taken Unknown] nitroglycerin 0.4 mg sublingual tablet 0.4 mg sublingual Q5-15M PRN Pain, Mild 08/08/19 [History Last Taken Unknown] pantoprazole 40 mg tablet,delayed release 40 mg PO DAILY GERD 03/31/21 [History Last Taken Unknown] hydrocodone-acetaminophen 5-325mg 5mg-325mg 1 tab PO Q8H PRN pain 3 days #9 tabs01/18/22 [Rx Last Taken Unknown] ondansetron 4 mg disintegrating tablet 4 mg PO Q8H PRN nausea and vomiting #10 tabs 01/18/22 [Rx Last Taken Unknown] dicyclomine 20 mg tablet 20 mg PO TID PRN abdominal pain #30 tabs 08/13/22 [Rx Last Taken Unknown] Allergy/AdvReac Type Severity Reaction Status Date / Time Sulfa (Sulfonamide Allergy Unknown Verified 04/22/23 08:22 Antibiotics) Family History Father CAD (coronary artery disease) Mother Cancer CAD (coronary artery disease) Surgical History Abdominal aortic aneurysm without rupture History of kzafb-wsspu-kxzvqnx bypass History of coronary artery bypass surgery (~2000) History of open heart surgery Presence of coronary angioplasty implant and graft (~06/08/19) S/P PTCA (percutaneous transluminal coronary angioplasty) Social History Smoking Status: Current some day smoker tobacco type: cigarettes alcohol intake: current alcohol intake frequency: a few times a week Alcohol type: beer and hard liquor substance use type: does not use ROS ROS ED Constitutional Constitutional ED: Denies chills, fever(s) or sweats Eyes Eyes: Denies change in vision ENT ENT ED: Denies dysphagia or sore throat Cardiovascular Cardiovascular: Denies chest pain, leg edema, palpitations or racing heartbeat Respiratory/Chest Respiratory/Chest: Denies cough, dyspnea or dyspnea on exertion Gastrointestinal Gastrointestinal: Reports abdominal pain; Denies diarrhea, nausea or vomiting Genitourinary Genitourinary ED: Denies dysuria, hematuria or urinary frequency Musculoskeletal Musculoskeletal: Denies back pain, extremity pain or neck pain Integumentary Denies rash or wounds Neurologic Neurologic: Denies headache(s), paresthesias or weakness EXAM Physical Exam Const Vital Signs: 04/22/23 08:21 04/22/23 08:23 Temperature 97.5 F L Temperature Source Temporal Pulse Rate 62 Respiratory Rate 14 Blood Pressure 205/72 H Blood Pressure Mean 116 Pulse Ox 100 Oxygen Delivery Method Room Air Positive well nourished and well developed Constitutional Narrative: Uncomfortable, nontoxic General Appearance ED: well developed HEENT Reports moist mucous membranes normocephalic and atraumatic Eyes PERRL, EOMs intact bilaterally and conjunctivae normal General Eye ED: Yes normal appearance of both eyes Neck no lymphadenopathy and supple General: Negative for tenderness Chest Wall Chest: Negative for tenderness Resp normal respiratory effort and normal air movement Effort and Inspection: symmetric chest movement; Negative for respiratory distress Cardio regular rate, regular rhythm and no murmurs Peripheral Pulses: pulses 2+ throughout GI normal to inspection, nondistended, normoactive bowel sounds GI Narrative: Midline abdominal scar, generalized tenderness across mid abdomen . No guardingor rebound. Palpation: Negative for guarding or rebound tenderness present Back/Spine no CVA tenderness and no thoracic nor lumbar tenderness Extremity normal to inspection General Extremety ED: Negative for edema or tenderness General Extremity: Negative for edema Neuro oriented x3 and no sensory deficits noted Sensorium / Orientation: awake and alert Skin no rashes or lesions noted and no wounds MDM MDM MDM Narrative Medical decision making narrative: Interventions / MDM: Differential diagnosis: Abdominal pain, ischemic colitis, abdominal aneurysm Diagnosis considered but do not suspect: Ruptured aneurysm or stent leaking, however not seen on imaging studies. My EKG interpretation: N/A Imaging independently reviewed and interpreted by myself: CT angio gram of abdomen pelvis: Abdominal aneurysm 5.1 cm, stents are patent in the iliacs. No inflammatory findings no ruptures. This also read by radiology. External documents reviewed: Reviewed his ER visit and inpatient records from July when he was admitted for concerns for ischemic colitis. Had elevated lactic acidosis. He had a stable proximal aneurysm with a stable mural thrombus. He was seen by GI. Recommended outpatient capsule endoscopy which was performed in August, there was concerning proximal small bowel inflammatory disease and work was initiated for IBD. He followed up with GI the following month, symptom-free, apparently cut back on alcohol and cigarettes. Cut back onNSAIDs. He was following cardiovascular for his aneurysm and was deferred to them for continued management. Test considered but not ordered:N/A ED course: Patient sudden pain across mid abdomen, history of AAA repair. Looksuncomfortable. Blood pressure elevated likely pain induced. IV established pain and nausea medicines. With AAA repair, CT angiogram ordered for further evaluation along with lactic acid. 0910: Reevaluation after review of his records, pain with no improvement. No CTperformed at this time yet. He was reordered for morphine 4 mg. Lactic acid did return at 2.9. 0940: Return from CT pending results. White count of 14.99. Creatinine up to 1.5, GFR 48. He is being given IV fluids. Lipase normal at 49. Per nursing pain still significant, IV Dilaudid is ordered. 1014: Patient reevaluated more comfortable at this time. Abdomen soft. Awaiting CT scan results. 1030: CT scan with abdominal aneurysm now 5.19 cm up from 4.386 months ago. There is no rupture or leakage from the stent. Patient pain now controlled is not more comfortable. Had lactic acidosis. From last ED visit, patient pain did return requiring admission. He will be monitored, will check lactic acid again for reevaluation. He has been given a liter of fluids. 1200: Lactic acid improved to 1.5. Pain has not returned. Abdomen soft. Patient be p.o. challenge. Will discuss with his GI doctor. Daughter present states he does follow [facility] vascular surgeon with one locally in the [facility]. 1230: I did speak with Dr. Sarabia, discussed patient's history agrees with withholding NSAIDs and history of ischemic colitis symptoms which is improving. Family reported saw rheumatology yesterday with injection unclear of what was given. Currently remains symptom-free is tolerating oral fluids with no return of symptoms. He will follow-up with GI as an outpatient. I will follow-up withthe vascular surgeon as an outpatient. Strict return precautions. All questions were answered. Re-evaluation: stable Disposition discussed with patient/family/significant other: Patient and daughter Case discussed with consulting clinician: N/A This note was generated with Swidjitation software. It may contain incorrectwords, spelling, and punctuation that were not noted in checking the note beforesigning. Lab Data Attestation: I reviewed the patient's lab results. Labs: Laboratory Results - last 24 hr 04/22/23 04/22/23 08:33 10:55 WBC 14.9 H RBC 4.98 Hgb 15.2 Hct 46.9 MCV 94.2 H MCH 30.5 MCHC 32.4 RDW Std Deviation 50.9 H RDW Coeff of Sierra 14.8 H Plt Count 362 MPV 10.0 Immature Gran % (Auto) 1.200 H Neut % (Auto) 78.4 H Lymph % (Auto) 15.4 L Door % (Auto) 3.6 Eos % (Auto) 0.6 Baso % (Auto) 0.8 Absolute Neuts (auto) 11.7 H Absolute Lymphs (auto) 2.29 Nucleated RBC % 0 Sodium 137 Potassium 4.2 Chloride 111 H Carbon Dioxide 21.0 Anion Gap 5 BUN 22 H Creatinine 1.53 H Estim Creat Clear Calc 48.38 Est GFR (MDRD) Af Amer 59 L Est GFR (MDRD) Non-Af 48 L BUN/Creatinine Ratio 14.4 Glucose 149 H Lactic Acid 2.9 H* 1.5 Calcium 9.2 Total Bilirubin 0.80 Direct Bilirubin 0.28 AST 16 ALT 16 Alkaline Phosphatase 198 H Total Protein 7.7 Albumin 3.4 Globulin 4.3 H Lipase 49 Radiography Diagnostic Testing: Clinical Impression(s) from Imaging Studies Abdomen/Pelvis CTA 04/22/23 08:48 IMPRESSION: 1. 5.19 cm abdominal aortic aneurysm with endovascular stent across a portion of the aneurysm sac 2. Chronically occluded bilateral internal iliac arteries Electronically Signed: Dante Roberts MD at 10:19 EST Reading Location ID and State: [facility] / [place] , Service support , Discharge Plan Triage Chief Complaint: Abd Pain ED Provider: Duc Monroy Dx/Rx/DC Orders Clinical Impression: Mild renal insufficiency, Abdominal aortic aneurysm (AAA) 3.0 cm to 5.5 cm in diameter in male, Abdominal pain, Lactic acidosis Instructions: Abdominal Pain, ED Renal Insufficiency, Abdominal Aortic AneurysmStable Prescriptions: No Action clopidogrel [Plavix] 75 mg tablet 150 mg PO QDAY atorvastatin 80 mg tablet 80 mg PO QHS nitroglycerin 0.4 mg tablet, sublingual 0.4 mg SUBLINGUAL Q5-15M PRN (Reason: Pain, Mild) Rx Instructions: until response; do not exceed 3 doses per episode lisinopril 5 mg tablet 5 mg PO QHS aspirin 81 MG tablet 81 mg PO DAILY@0800 pantoprazole 40 mg tablet,delayed release (DR/EC) 40 mg PO DAILY hydrocodone-acetaminophen 5-325 mg tablet 1 tab PO Q8H PRN (Reason: pain) 3 Days Qty: 9 0RF ondansetron 4 mg tablet,disintegrating 4 mg PO Q8H PRN (Reason: nausea and vomiting) Qty: 10 0RF dicyclomine 20 mg tablet 20 mg PO TID PRN (Reason: abdominal pain) Qty: 30 0RF metoprolol tartrate 25 mg tablet 25 mg PO BID Qty: 180 3RF Primary Care Provider: Annika Villasenor Referrals: Annika Villasenor MD [Primary Care Provider] - 5-7 Days Markel Sarabia DO [Med Staff - Active Staff] - 1-2 Weeks Activity Restrictions/Additional Instructions: Your CT scan notes abdominal aneurysm increased to 5.1 cm up from 4.3. Your stent is in place, there is no rupture or leak from the stent. You will need tofollow-up with your vascular doctor through [facility] for outpatient evaluation. Here labs notes lactic acidosis improved, if history of concerning ischemic colitis. There is no thrombus on the CT. Your symptoms improved in the ED and your lactic acid improved. Avoid nonsteroidal anti-inflammatory medications. Discussed with Dr. Sarabia in the ED. Follow-up with him. Creatinine 1.5, you are given fluids in the ED. Continue oral fluids for hydration at home. Follow-up with your doctor for recheck labs. Return to ED for reevaluation if symptoms return or worsens. Disposition Disposition: Home, Self Care What to do if you have Problems For any increased pain, shortness of breath, bleeding, nausea or vomiting, chestpain, or any unexpected problems, contact your Primary Care Provider. Call [facility] ([phone]) or report to the closest Emergency Room. Call 911 if necessary. 04/22/23 1242 <Electronically signed by Duc London> Cosigner Signature (if applicable): CC: Dr. Annika Villasenor MD; Markel Sarabia, DO ~ Signed [facility] Work Phone: 1(537) 667-993611-22-2023 Hospital Discharge instructions Additional Instructions Your CT scan notes abdominal aneurysm increased to 5.1 cm up from 4.3. Your stent is in place, there is no rupture or leak from the stent. You will need to follow-up with your vascular doctor through [facility] for outpatient evaluation. Here labs notes lactic acidosis improved, if history of concerning ischemic colitis. There is no thrombus on the CT. Your symptoms improved in the ED and your lactic acid improved. Avoid nonsteroidal anti-inflammatory medications. Discussed with Dr. Sarabia in the ED. Follow-up with him. Creatinine 1.5, you are given fluids in the ED. Continue oral fluids for hydration at home. Follow-up with your doctor for recheck labs. Return to ED for reevaluation if symptoms return or worsens.[facility] Work Phone: 1(433) 220-934307-10-2023 History of Present illness Narrative* Brenda Marin MD - 12/08/2022 11:40 AM EDT Images from the original note were not included. Brenda Marin MD Interventional Cardiology [facility] [address], [place] [address] [phone] Chief Complaint No chief complaint on file. HISTORY OF PRESENT ILLNESS: Mr. Walker is a 67 year old male seen in my office for follow-up prior history of severe three-vesselcoronary artery disease with peripheral vascular patient had [...] HISTORY Diagnosis Date AAA (abdominal aortic aneurysm) ([facility]) s/p repair Arthritis CAD (coronary artery disease) Cardiomyopathy ([facility]) Heart attack ([facility]) x3 HTN (hypertension) NSTEMI (non-ST elevated myocardial infarction) ([facility]) 01/30/2019 2 prior NH's PAD (peripheral artery disease) ([facility]) PAST SURGICAL HISTORY Procedure Laterality Date CORONARY ARTERY BYPASS GRAFT x3 DIR RPR ANEURYSM ABDOMINAL AORTA 1994 FAMILY HISTORY Problem Relation Age of Onset Rheumatologic disease Mother Ischemic Heart Disease Father dided from NH age 60 other (vascular disease) Father Arthritis [...] 10 mL injection (DEFINITY) INTRAVENOUS DIRECTED PRN Brenda Marin MD sodium chloride 0.9 % (flush) 10 mL (BD POSIFLUSH) 10 mL INTRAVENOUS DIRECTED PRN Brenda Marin MD Review of Systems Constitutional: Negative [...] and diastolic CHF (congestive heart failure) (HCC) - ICD9: 428.42, 428.0, ICD10: I50.42 No clinical evidence of congestive heart failure on medical treatment 3. Atherosclerosis of [place] artery of right lower extremity with intermittent claudication (HCC) -ICD9: 440.21, ICD10: I70.211 Prior history of iliac stent and infra aortic abdominal aneurysm repair 4. Post PTCA - ICD9: V45.82, ICD10: Z98.61 No angina 5. PVD (peripheral vascular disease) ([facility]) - ICD9: 443.9, ICD10: I73.9 No claudication Brenda Marin MD Follow up planning: One year Electronically signed by Brenda Marin MD on December 08, 2022, 11:40 AM The above note was partially created using a dictation recognition software. A reasonable attempt has been made to correct any errors. [facility] Mcdaniel [facility] August 14, 2022 1:37pm Note Date/Time August 14, 2022 8:2 0am [facility] Medical Records Department [address] [place] [address] Progress Note - Hospitalist 08/14/2209 MR#: [id number] Acct: [id number] Name: CHEY WALKER Rep #:[id number] : 1955 67 From: Scotty Mcdaniel DO PCP: Dr. Annika Villasenor MD Status:ADM LEXI Location: [place] [address]1 Reason for Visit Reason for Visit: Diagnoses Unspecified abdominal pain (08/13/22) Subjective Subjective Feels well. No further abdominal pain. Objective Data Objective Data Vital Signs: Vital Signs Temp Pulse Resp BP Pulse Ox O2 Del Method 36.8 C 58 L 14 117/52 L 93 Room Air 08/14/22 04:00 08/14/22 04:00 08/14/22 04:00 08/14/22 04:00 08/14/22 04:00 08/14/22 04:00 Oxygen Delivery Method Room Air Weight: 87 kg Body Mass Index (BMI) 26.7 Intake & Output: Intake and Output for Last 24 Hours 08/12/22 08/13/22 08/14/22 23:59 23:59 23:59 Intake Total 1000 / 1000 1000 / 1000 Balance 1000 / 1000 1000 / 1000 Lab / Micro Data Result Diagrams: 08/14/22 06:27 08/14/22 06:27 Labs: Laboratory Results - last 24 hr 08/13/22 10:08: WBC 14.1 H, RBC 4.74, Hgb 14.5, Hct 44.9, MCV 94.7 H, MCH 30.6, MCHC 32.3, RDW Std Deviation 51.3 H, RDW Coeff of Sierra 14.6, Plt Count 292, MPV 10.0, Immature Gran % (Auto) 3.500 H, Neut % (Auto) 66.4, Lymph % (Auto) 20.4, Door % (Auto) 7.3, Eos % (Auto) 2.3, Baso % (Auto) 0.1, Absolute Neuts (auto) 9.3 H, Absolute Lymphs (auto) 2.86, Nucleated RBC % 0 08/13/22 10:08: Sodium 140, Potassium 4.4, Chloride 110 H, Carbon Dioxide 22.0, Anion Gap 8, BUN 20 H, Creatinine 1.25, Estim Creat Clear Calc 61.08, Est GFR (MDRD) Af Amer 74, Est GFR (MDRD) Non-Af 61, BUN/Creatinine Ratio 16.0, Glucose 152 H, Calcium 8.7, Total Bilirubin 0.70, AST 12 L, ALT 17, Alkaline [id number] H, Troponin I High Sens 14, Total Protein 6.6, Albumin 2.9 L, Globulin 3.7, Albumin/Globulin Ratio 0.8 L, Lipase 245 08/13/22 10:08: Lactic Acid 2.2 H* 08/13/22 10:08: ESR 38 H 08/13/22 10:08: Lactate Dehydrogenase 144, C-React Prot Ext Range 41.00 H 08/13/22 11:20: Urine Color Yellow, Urine Clarity Clear, Urine pH 5.0, Ur Specific Scroggins 1.015, Urine Protein 15 H, Urine Glucose (UA) Normal, Urine Ketones Negative, Urine Occult Blood Negative, Urine Nitrite Negative, Urine Bilirubin Negative, Urine Urobilinogen Normal, Ur Leukocyte Esterase 25 H, UrineRBC 0 SEEN, Urine WBC 0 SEEN, Ur Squamous Epith Cells 0 SEEN, Urine Bacteria 0 SEEN, Urine Mucus 0 SEEN 08/13/22 11:20: Urine Opiates Screen POSITIVE H, Urine Methadone Screen NEGATIVE, Ur Barbiturates Screen NEGATIVE, Ur Phencyclidine Scrn NEGATIVE, Ur Amphetamines Screen NEGATIVE, MDMA (Ecstasy) Screen NEGATIVE, U Benzodiazepines Scrn NEGATIVE, Urine Cocaine Screen NEGATIVE, U Cannabinoids Screen NEGATIVE, UrDrug Screen Comment 08/13/22 15:24: Lactic Acid 1.6 08/14/22 06:27: WBC 11.2 H, RBC 4.02 L, Hgb 12.3 L, Hct 39.2 L, MCV 97.5 H, MCH 30.6, MCHC 31.4 L, RDW Std Deviation 52.1 H, RDW Coeff of Sierra 14.5, Plt Count 243, MPV 9.7, Immature Gran % (Auto) 1.900 H, Neut % (Auto) 66.5, Lymph % (Auto)19.8, Door % (Auto) 8.6, Eos % (Auto) 2.7, Baso % (Auto) 0.5, Absolute Neuts (auto) 7.4, Absolute Lymphs (auto) 2.21, Nucleated RBC % 0 08/14/22 06:27: Sodium 140, Potassium 4.6, Chloride 111 H, Carbon Dioxide 25.0, Anion Gap 4 L, BUN 16, Creatinine 1.05, Estim Creat Clear Calc 72.71, Est GFR (MDRD) Af Amer 91, Est GFR (MDRD) Non-Af 75, BUN/Creatinine Ratio 15.2, Glucose 81, Calcium 7.8 L, Magnesium 1.9, Total Bilirubin 1.10 H, AST 9 L, ALT 14 L, Alkaline Phosphatase 132 H, Total Protein 5.1 L, Albumin 2.2 L, Globulin 2.9, Albumin/Globulin Ratio 0.8 L Radiography Diagnostic Testing: Radiology Impression Chest/Abdomen/Pelvis CTA 08/13/22 10:42 IMPRESSION: Peripheral calcifications in the thoracic and abdominal aorta with mural thrombus, but no evidence of dissection. There is no significant stenosis. There is a focal aneurysm in the aorta just prior to the bifurcation which has a patent stent graft within it. Chronic interstitial changes in both lung linder with superimposed interstitial edema and honeycombing around the periphery of both lung linder. No suspicious solid abnormality. Tiny gallstones are present without CT evidence of acute cholecystitis Small bowel ileus Colonic diverticulosis No free intraperitoneal fluid, air, or suspicious adenopathy Degenerative bony changes Electronically Signed: Jonas Foster MD at 11:20 EDT , Gallbladder Ultrasound 08/13/22 13:03 IMPRESSION: No suspicious sonographic findings, study limited due to overlying bowel gas Electronically Signed: Jonas Foster MD at 15:13 EDT , Rhythm Strip Rhythm Strip: Sinus bradycardia Rate: 53 Ectopy: PVC(s) Physical Exam Const alert Resp normal respiratory effort and no retractions Cardio regular rate, regular rhythm, S1 normal heart sound and S2 normal heart sound GI normal to inspection, nondistended, normoactive bowel sounds, soft to palpation,non-tender and non-distended Assessment & Plan Assessment/Plan (1) Intractable abdominal pain: PLAN: Unclear etiology, seen by GI who suspects ischemic colitis Unlikely to be inflammatory bowel disease such as Crohn's disease or ulcerative colitis. Patient may have had some transient ileus or small bowel obstruction but that was not visualized on imaging. Data: * CTA chest abdomen pelvis demonstrated peripheral calcifications and thoracic and abdominal aorta with mural thrombus and no evidence of dissection with no significant stenosis. Focal aneurysm in the aorta just prior to the bifurcation which has a patent stent graft within it. Chronic interstitial changes in both lung linder with superimposed interstitial edema and honeycombing around the periphery of both lungs. Tiny gallstones on CT without acute cholecystitis, did report small bowel ileus and colonic diverticulosis. * Right upper quadrant US with no suspicious sonographic findings * Lactic acid 2.2 to 1.6 * Alk phos 152 but bili within normal limits and no elevation of AST or ALT Plan: * Les with Dr. Sarabia, no plans for any endoscopy during this hospitalization. Okay to advance diet. * outpt capsule endoscopy PLAN: Plan Chronic conditions: * Coronary artery disease status post PCI/VICKIE to LCX/OM2 06/08/19; PCI/stent to LAD, D1 and LCX 09/16-Continue aspirin, statin, Plavix, yjbo-hcoplbo-Hhlleg l isted as 150 mg on home med rec, will give 75 we will need to clarify home dosing * AAA: s/p stent. current measurement 4.38cm (3.8 on 12/31/21). Mural thrombus notes * HTN: stable continue lisinopril #DVT ppx: Lovenox subcu Charges/Coding Visit Charges Inpatient E&M: 47713 Subs Hosp L2 08/14/22 1337 <Electronically signed by Scotty Mcdaniel DO> Cosigner Signature (if applicable): CC: ~ Signed [facility] Work Phone: [phone]) 380-450503-15-2023 History and physical note Author Dr. Fernandez [facility] August 13, 2022 8:38pm Note Date/Time August 13, 2022 6:4 3pm [facility] Medical Records Department [address] [place] [address] H&P Exam - Hospitalist 08/13/22 1839 MR#: [id number] Acct: [id number] Name: CHEY WALKER Rep #:[id number] : 1955 67 From: Mary Fernandez MD PCP: Dr. Annika Villasenor MD Status:ADM LEXI Location: [place] [address] HPI - General General Date of Admission: 08/13/22 Date of Service: 08/13/22 Chief Complaint: Acute on chronic abdominal pain HPI Narrative CHEY WALKER, is a 67 M with a history of abdominal pain, ischemic colitis, hypertension, and coronary artery disease who presented to [facility] 08/13/2022 for acute on chronic intractable abdominal pain and nausea. He presented to the ED in the morning and reported he had severe abdominal pain around 5:30 in the morning that woke him up from sleep and it was constant through his entire abdomen, he has had episodes like this in the past and usually a dose of pain medication takes away and he is able to go home however he was not improving in the emergency department. He additionally had nausea and vomiting. He has been evaluated in the past for these episodes of abdominalpain with no definitive answer and it was felt there might be a component of mesenteric ischemia given his significant vascular problems. Additionally he recently had some sores in his mouth and a rash on his ankle that was treated with steroids by his primary care doctor and the area around his mouth resolved in ankles and was completely healed. In the ED he was noted to have a white count of 14.1 and a creatinine of 1.25 and initial lactate of 2.2. He had received morphine and Dilaudid with only mild improvement in his pain. ED physician discussed with surgeon on-call and right upper quadrant ultrasound wasrecommended which had no acute process. It was felt that he likely has chronic mesenteric ischemia and no urgent surgical intervention at this time. Patient received fluids and pain medication and medication for BP. CT obtained in the ED did show possible ileus. Eventually pain had started to improve but shortly before he was to be discharged from the emergency department he reported increased pain again and GI contacted and hospitalist called for admission. Evaluated patient at bedside with family member and he reported the general painin his abdomen that he is unable to localize and has had this off and on for months but usually will resolve with a dose of pain medication entirely. Daughter did reiterate the rash that he had and reports it is going around his mouth and almost gone on his ankle and he had never had anything like that before. When asking about timing of the pain he said it is usually at night or early in the morning and does not necessarily associate with food though he has been nauseous and eating has made that part worse. Denies any substance use including marijuana. [facility] Medical History Arthritis Atherosclerotic heart disease of [place] coronary artery without angina pectoris CAD in [place] artery Cardiomyopathy Essential hypertension Heart disease History of pneumonia HTN (hypertension) Hyperlipidemia Ischemic colitis NSTEMI (non-ST elevated myocardial infarction) Old myocardial infarction PAD (peripheral artery disease) Personal history of colonic polyps Presence of stent in coronary artery (~06/08/19) Home Medications clopidogrel 75 mg tablet (Plavix) 150 mg PO QDAY 07/24/17 [History Last Taken Unknown] aspirin 81 mg tablet,delayed release 81 mg PO DAILY@0800 01/30/19 [History Last Taken Unknown] atorvastatin 80 mg tablet 80 mg PO QHS 02/16/19 [History Last Taken Unknown] metoprolol tartrate 25 mg tablet 25 mg PO BID #180 tabs 02/25/19 [Rx Last Taken Unknown] lisinopril 5 mg tablet 5 mg PO QHS blood pressure 08/08/19 [History Last Taken Unknown] nitroglycerin 0.4 mg sublingual tablet 0.4 mg sublingual Q5-15M PRN Pain, Mild 08/08/19 [History Last Taken Unknown] pantoprazole 40 mg tablet,delayed release 40 mg PO DAILY GERD 03/31/21 [History Last Taken Unknown] hydrocodone-acetaminophen 5-325mg 5mg-325mg 1 tab PO Q8H PRN pain 3 days #9 tabs01/18/22 [Rx Last Taken Unknown] ondansetron 4 mg disintegrating tablet 4 mg PO Q8H PRN nausea and vomiting #10 tabs 01/18/22 [Rx Last Taken Unknown] dicyclomine 20 mg tablet 20 mg PO TID PRN abdominal pain #30 tabs 08/13/22 [Rx Last Taken Unknown] Allergy/AdvReac Type Severity Reaction Status Date / Time Sulfa (Sulfonamide Allergy Unknown Verified 08/13/22 09:15 Antibiotics) Family History Father CAD (coronary artery disease) Mother Cancer CAD (coronary artery disease) Surgical History Abdominal aortic aneurysm without rupture History of wfvjb-rzdko-fttvuyg bypass History of coronary artery bypass surgery (~2000) History of open heart surgery Presence of coronary angioplasty implant and graft (~06/08/19) S/P PTCA (percutaneous transluminal coronary angioplasty) Social History Smoking Status: Current some day smoker tobacco type: cigarettes alcohol intake: current alcohol intake frequency: a few times a week Alcohol type: beer and hard liquor substance use type: does not use ROS ROS Narrative General: Denies fever/chills HENT: Denies headache, denies stuffy nose, denies sore throat EYES: Denies changes in vision Resp: Denies cough, denies shortness of breath Cardiac: Denies chest pain GI: Generalized abdominal pain, nausea and poor p.o. intake : Denies changes in urination Extremity: Denies swelling MSK: Denies weakness Neuro: Denies any numbness/tingling Heme: Denies any bleeding or bruising Skin: Had perioral rash and rash on right ankle Psychiatric: No complaints voiced Vital Signs Vital Signs Vital Signs: 08/13/22 09:16 08/13/22 10:07 08/13/22 11:35 Temperature 98 F Temperature Source Temporal Pulse Rate 55 L 59 L 61 Respiratory Rate 14 19 H 18 Blood Pressure 184/121 H 193/73 H 161/50 H Blood Pressure Mean 142 113 87 Pulse Ox 100 100 98 Oxygen Delivery Method Room Air Room Air Room Air 08/13/22 13:47 08/13/22 16:52 08/13/22 17:37 Temperature 98 F Temperature Source Temporal Pulse Rate 66 64 63 Respiratory Rate 18 16 16 Blood Pressure 190/87 H 200/69 H 150/47 H Blood Pressure Mean 121 112 81 Pulse Ox 93 96 96 Oxygen Delivery Method Room Air Room Air Room Air Weight Weight: 88 kg Body Mass Index (BMI) 27.1 Physical Exam Narrative General: Alert, oriented HEENT: Atraumatic, normocephalic Eyes: Anicteric, normal conjunctiva, extraocular movements grossly intact Neck: Supple Respiratory: Clear to auscultation bilaterally, normal respiratory effort Cardiovascular: Regular rate and rhythm GI: Soft, mildly tender to palpation diffusely, no rebound, no guarding, no rigidity,, nondistended Extremities: No edema Musculoskeletal: Moving all extremities Neuro: No overt focal neurological deficits Skin: No rash around mouth, has slight scaly rash on lateral aspect of right ankle which is very faint with no drainage Psych: Slightly irritable Results Lab / Micro Data Result Diagrams: 08/13/22 10:08 08/13/22 10:08 Labs: Laboratory Results - last 24 hr 08/13/22 10:08: WBC 14.1 H, RBC 4.74, Hgb 14.5, Hct 44.9, MCV 94.7 H, MCH 30.6, MCHC 32.3, RDW Std Deviation 51.3 H, RDW Coeff of Sierra 14.6, Plt Count 292, MPV 10.0, Immature Gran % (Auto) 3.500 H, Neut % (Auto) 66.4, Lymph % (Auto) 20.4, Door % (Auto) 7.3, Eos % (Auto) 2.3, Baso % (Auto) 0.1, Absolute Neuts (auto) 9.3 H, Absolute Lymphs (auto) 2.86, Nucleated RBC % 0 08/13/22 10:08: Sodium 140, Potassium 4.4, Chloride 110 H, Carbon Dioxide 22.0, Anion Gap 8, BUN 20 H, Creatinine 1.25, Estim Creat Clear Calc 61.08, Est GFR (MDRD) Af Amer 74, Est GFR (MDRD) Non-Af 61, BUN/Creatinine Ratio 16.0, Glucose 152 H, Calcium 8.7, Total Bilirubin 0.70, AST 12 L, ALT 17, Alkaline [id number] H, Troponin I High Sens 14, Total Protein 6.6, Albumin 2.9 L, Globulin 3.7, Albumin/Globulin Ratio 0.8 L, Lipase 245 08/13/22 10:08: Lactic Acid 2.2 H* 08/13/22 11:20: Urine Color Yellow, Urine Clarity Clear, Urine pH 5.0, Ur Specific Scroggins 1.015, Urine Protein 15 H, Urine Glucose (UA) Normal, Urine Ketones Negative, Urine Occult Blood Negative, Urine Nitrite Negative, Urine Bilirubin Negative, Urine Urobilinogen Normal, Ur Leukocyte Esterase 25 H, UrineRBC 0 SEEN, Urine WBC 0 SEEN, Ur Squamous Epith Cells 0 SEEN, Urine Bacteria 0 SEEN, Urine Mucus 0 SEEN 08/13/22 11:20: Ur Drug Screen Comment 08/13/22 15:24: Lactic Acid 1.6 Rhythm Strip Rhythm Strip: Sinus bradycardia Rate: 53 Ectopy: PVC(s) Radiology Impression Chest/Abdomen/Pelvis CTA 08/13/22 10:42 IMPRESSION: Peripheral calcifications in the thoracic and abdominal aorta with mural thrombus, but no evidence of dissection. There is no significant stenosis. There is a focal aneurysm in the aorta just prior to the bifurcation which has a patent stent graft within it. Chronic interstitial changes in both lung linder with superimposed interstitial edema and honeycombing around the periphery of both lung linder. No suspicious solid abnormality. Tiny gallstones are present without CT evidence of acute cholecystitis Small bowel ileus Colonic diverticulosis No free intraperitoneal fluid, air, or suspicious adenopathy Degenerative bony changes Electronically Signed: Jonas Foster MD at 11:20 EDT , Gallbladder Ultrasound 08/13/22 13:03 IMPRESSION: No suspicious sonographic findings, study limited due to overlying bowel gas Electronically Signed: Jonas Foster MD at 15:13 EDT , Assessment & Plan Assessment/Plan (1) Intractable abdominal pain: PLAN: Plan #Intractable nausea and vomiting -Unclear etiology, possibly secondary to ileus, CTA chest abdomen pelvis demonstrated peripheral calcifications and thoracic and abdominal aorta with mural thrombus and no evidence of dissection with no significant stenosis. Focal aneurysm in the aorta just prior to the bifurcation which has a patent stent graft within it. Chronic interstitial changes in both lung linder with superimposed interstitial edema and honeycombing around the periphery of both lungs. Tiny gallstones on CT without acute cholecystitis, did report small bowel ileus and colonic diverticulosis. -Right upper quadrant with no suspicious sonographic findings -will admit and give clear liquids and advance as tolerated, patient presently on fluids -Gastroenterology consulted and autoimmune work-up begun -Alk phos 152 but bili within normal limits and no elevation of AST or ALT #Coronary artery disease status post PCI/VICKIE to LCX/OM2 06/08/19; PCI/stent to LAD, D1 and LCX 09/16 -Continue aspirin, statin, Plavix, beta-kaycee -Plavix listed as 150 mg on home med rec, will give 75 we will need to clarify home dosing #DVT ppx: Lovenox subcu Mary Fernandez MD Time spent in the patient's overall evaluation,decision-making process, review of diagnostic data, adjustment of management, discussion with other providers, nursing nursing and ancillary staff involved in patient's care documentation, 60minutes Charges/Coding Visit Charges Inpatient E&M: 80757 Init Hosp L2 08/13/222037 <Electronically signed by Mary Fernandez MD> Cosigner Signature (if applicable): CC: Dr. Annika Villasenor MD; Dr. Mary Fernandez MD~ Signed [facility] Work Phone: [phone]) 896-633503-15-[address] Cantu [facility] August 13, 2022 5:27pm Note Date/Time August 13, 2022 9:5 0am [facility] Medical Records Department [address] [place] [address] Emergency Department Summary 08/13/22 MR#: [id number] Acct: [id number] Name: CHEY WALKER Rep #:[id number] : 1955 67 From: Zoraida Garrison PCP: Dr. Annika Villasenor MD Status:REG ER Location: ED HPI HPI - GI History of Present Illness Chief Complaint: Abd Pain Informant: patient and family Narrative Narrative: Patient is a 67-year-old male with history of hypertension, coronary artery disease, cardiomyopathy, ischemic colitis, prior CABG as well as AAA with stenting presenting with abdominal pain. Patient states he developed severe abdominal pain around 530 this morning that woke him up from sleep. Its been constant. He states it through his entire abdomen. He has a very hard time describing the characteristics of the pain but states this feels like prior episodes of his abdominal pain. He denies associated chest pain or shortness ofbreath. I did have an episode of nausea and diaphoresis with the pain. States that he did try to eat a small cinnamon roll this morning with no change in his pain. States food does not seem to affect it. Notes he had sloppy Kevyn's and tater tots for dinner last night. Has previously seen Dr. Sarabia as well as for evaluation of these episodes abdominal pain. Chart review shows that patient was most recently seen in the ER in December 2021 for similar episode. Patient's daughter reports that week and a half ago he hadsores in his mouth and a rash on his ankle that was treated with a cream and steroids by his primary care doctor, Dr. Hardin. In addition patient is done with a lot of stress at home as his has brain cancer. [facility] Medical History Arthritis Atherosclerotic heart disease of [place] coronary artery without angina pectoris CAD in [place] artery Cardiomyopathy Essential hypertension Heart disease History of pneumonia HTN (hypertension) Hyperlipidemia Ischemic colitis NSTEMI (non-ST elevated myocardial infarction) Old myocardial infarction PAD (peripheral artery disease) Personal history of colonic polyps Presence of stent in coronary artery (~06/08/19) Home Medications clopidogrel 75 mg tablet (Plavix) 150 mg PO QDAY 07/24/17 [History Last Taken Unknown] aspirin 81 mg tablet,delayed release 81 mg PO DAILY@0800 01/30/19 [History Last Taken Unknown] atorvastatin 80 mg tablet 80 mg PO QHS 02/16/19 [History Last Taken Unknown] metoprolol tartrate 25 mg tablet 25 mg PO BID #180 tabs 02/25/19 [Rx Last Taken Unknown] lisinopril 5 mg tablet 5 mg PO QHS blood pressure 08/08/19 [History Last Taken Unknown] nitroglycerin 0.4 mg sublingual tablet 0.4 mg sublingual Q5-15M PRN Pain, Mild 08/08/19 [History Last Taken Unknown] pantoprazole 40 mg tablet,delayed release 40 mg PO DAILY GERD 03/31/21 [History Last Taken Unknown] hydrocodone-acetaminophen 5-325mg 5mg-325mg 1 tab PO Q8H PRN pain 3 days #9 tabs01/18/22 [Rx Last Taken Unknown] ondansetron 4 mg disintegrating tablet 4 mg PO Q8H PRN nausea and vomiting #10 tabs 01/18/22 [Rx Last Taken Unknown] dicyclomine 20 mg tablet 20 mg PO TID PRN abdominal pain #30 tabs 08/13/22 [Rx Last Taken Unknown] Allergy/AdvReac Type Severity Reaction Status Date / Time Sulfa (Sulfonamide Allergy Unknown Verified 08/13/22 09:15 Antibiotics) Family History Father CAD (coronary artery disease) Mother Cancer CAD (coronary artery disease) Surgical History Abdominal aortic aneurysm without rupture History of czeki-qecvy-edspmbx bypass History of coronary artery bypass surgery (~2000) History of open heart surgery Presence of coronary angioplasty implant and graft (~06/08/19) S/P PTCA (percutaneous transluminal coronary angioplasty) Social History Smoking Status: Current some day smoker tobacco type: cigarettes alcohol intake: current alcohol intake frequency: a few times a week Alcohol type: beer and hard liquor substance use type: does not use ROS ROS ED Constitutional Constitutional ED: Reports sweats; Denies chills or fever(s) Cardiovascular Cardiovascular: Denies chest pain Respiratory/Chest Respiratory/Chest: Denies cough or dyspnea Gastrointestinal Gastrointestinal: Reports abdominal pain and nausea; Denies constipation, diarrhea, melena or vomiting Genitourinary Genitourinary ED: Denies dysuria or hematuria Musculoskeletal Musculoskeletal: Denies arthralgias, back pain or myalgias Integumentary Denies rash Neurologic Neurologic: Denies headache(s) or weakness Psychiatric Psychiatric: Denies anxiety Hematologic/Lymphatic Hematologic/Lymphatic: Denies easy bleeding or easy bruising EXAM Physical Exam Const Vital Signs: 08/13/22 09:16 08/13/22 10:07 08/13/22 11:35 Temperature 98 F Temperature Source Temporal Pulse Rate 55 L 59 L 61 Respiratory Rate 14 19 H 18 Blood Pressure 184/121 H 193/73 H 161/50 H Blood Pressure Mean 142 113 87 Pulse Ox 100 100 98 Oxygen Delivery Method Room Air Room Air Room Air 08/13/22 13:47 08/13/22 16:52 Temperature Temperature Source Pulse Rate 66 64 Respiratory Rate 18 16 Blood Pressure 190/87 H 200/69 H Blood Pressure Mean 121 112 Pulse Ox 93 96 Oxygen Delivery Method Room Air Room Air Positive well nourished and well developed Constitutional Narrative: Patient appears quite uncomfortable secondary to pain General Appearance ED: well developed; Negative for pallor HEENT Reports moist mucous membranes normocephalic and atraumatic Eyes PERRL Neck supple and no JVD Resp normal respiratory effort and clear to auscultation bilaterally Cardio regular rate, regular rhythm and no murmurs GI GI Narrative: Diffusely tender, does not seem to localize. Patient does not tolerate abdominal exam well and pushes my hand away. No involuntary guarding or rigidity appreciated. No possible mass appreciated. Inspection: Negative for abdominal distention Auscultation: hypoactive bowel sounds Palpation: soft Extremity full ROM Extremity Narrative: 2+ right radial pulse. 1+ left radial pulse. 2+ bilateral DP pulses (patient reports that the artery on his left arm makes a loop which was reported to him by cardiology during the cardiac catheterization) General Extremety ED: Negative for edema or tenderness General Extremity: Negative for edema Neuro moves all extremities Sensorium / Orientation: alert, oriented to person, oriented to place and oriented to time Motor Exam: Negative for general weakness Psych mental status grossly normal and thought process normal Skin General Skin Exam: Negative for jaundice or pallor Rashes: no rashes MDM MDM MDM Narrative Medical decision making narrative: Patient's evaluated sudden onset of abdominal pain. Initially has a hard time describing where it sat. Does not seem to localize however he does seem slightly more tender in the right upper quadrant. Has known history of gallstones. Patient vital signs are significant for hypertension. He is also bradycardic however it shows that patient does take metoprolol. Patient does not think he took his morning medicines however. His pain is slightly out of proportion and a lactic acid as well as a CTA of the chest abdomen pelvis is obtained. Patient does have a history of AAA has been repaired as well as ischemic colitis. Patient does have a mild leukocytosis of 14.1 with left shift. CMP largely unremarkable with creatinine is baseline at 1.25. His initial lactate is elevated at 2.2. Patient is given multiple doses of morphineand then IV Dilaudid with no significant improvement of his pain. He is given adose of oral Bentyl around the same time he receives Dilaudid. On repeat evaluation he has had improvement of his pain. Given his laboratory findings and abdominal pain without a clear cause I did obtain a surgical consult with Dr. Enamorado. He recommends a right upper quadrant ultrasound. This is obtained does not show any acute process. Discussed again with Dr. Enamorado who feels that likely patient has chronic mesenteric ischemia. Patient received a liter of IV fluid and his lactate is downtrending. Surgery does not feel that patient requires emergent intervention at this time. Recommend outpatient follow-up with primary care as well as surgery. Patient is given his dose of lisinopril. He continues to be hypertensive however his diastolic has improved. Will be given a dose of hydralazine for further blood pressure control prior to discharge. Will be started on Bentyl. Is also encouraged to follow-up with GI. Counseled if he has a further episodes of worsening abdominal pain, fever or black/bloody stools he should return to the emergency room. Patient does verbalize agreement understanding with this. Patient's high sensitivity troponin and EKG did not show any acute ischemic changes and I do not think thisis referred cardiac pain. Do not think this is a hypertensive emergency. Discussed with patient that CT did show an ileus. Counseled to avoid eating large meals. Patient currently does not have any vomiting. Patient tolerates joaquín mark and crackers in the emergency room prior to discharge. When nursing went in to give the patient his discharge paperwork he is now complaining of worsening abdominal pain again. Patient is quite uncomfortable again. He is reevaluated. No significant change in his abdominal pain locationor physical exam. Given his intractable abdominal pain, leukocytosis, elevated lactate upon arrival and left shift in the setting of presumed mesenteric ischemia I do think patient benefit from admission for further pain control and GI consult. Will page for hospitalist as well as Dr. Sarabia. Lab Data Attestation: I reviewed the patient's lab results. Labs: Laboratory Results - last 24 hr 08/13/22 08/13/22 08/13/22 10:08 10:08 10:08 WBC 14.1 H RBC 4.74 Hgb 14.5 Hct 44.9 MCV 94.7 H MCH 30.6 MCHC 32.3 RDW Std Deviation 51.3 H RDW Coeff of Sierra 14.6 Plt Count 292 MPV 10.0 Immature Gran % (Auto) 3.500 H Neut % (Auto) 66.4 Lymph % (Auto) 20.4 Door % (Auto) 7.3 Eos % (Auto) 2.3 Baso % (Auto) 0.1 Absolute Neuts (auto) 9.3 H Absolute Lymphs (auto) 2.86 Nucleated RBC % 0 Sodium 140 Potassium 4.4 Chloride 110 H Carbon Dioxide 22.0 Anion Gap 8 BUN 20 H Creatinine 1.25 Estim Creat Clear Calc 61.08 Est GFR (MDRD) Af Amer 74 Est GFR (MDRD) Non-Af 61 BUN/Creatinine Ratio 16.0 Glucose 152 H Lactic Acid 2.2 H* Calcium 8.7 Total Bilirubin 0.70 AST 12 L ALT 17 Alkaline Phosphatase 152 H Troponin I High Sens 14 Total Protein 6.6 Albumin 2.9 L Globulin 3.7 Albumin/Globulin Ratio 0.8 L Lipase 245 Urine Color Urine Clarity Urine pH Ur Specific Scroggins Urine Protein Urine Glucose (UA) Urine Ketones Urine Occult Blood Urine Nitrite Urine Bilirubin Urine Urobilinogen Ur Leukocyte Esterase Urine RBC Urine WBC Ur Squamous Epith Cells Urine Bacteria Urine Mucus 08/13/22 08/13/22 11:20 15:24 WBC RBC Hgb Hct MCV MCH MCHC RDW Std Deviation RDW Coeff of Sierra Plt Count MPV Immature Gran % (Auto) Neut % (Auto) Lymph % (Auto) Door % (Auto) Eos % (Auto) Baso % (Auto) Absolute Neuts (auto) Absolute Lymphs (auto) Nucleated RBC % Sodium Potassium Chloride Carbon Dioxide Anion Gap BUN Creatinine Estim Creat Clear Calc Est GFR (MDRD) Af Amer Est GFR (MDRD) Non-Af BUN/Creatinine Ratio Glucose Lactic Acid 1.6 Calcium Total Bilirubin AST ALT Alkaline Phosphatase Troponin I High Sens Total Protein Albumin Globulin Albumin/Globulin Ratio Lipase Urine Color Yellow Urine Clarity Clear Urine pH 5.0 Ur Specific Scroggins 1.015 Urine Protein 15 H Urine Glucose (UA) Normal Urine Ketones Negative Urine Occult Blood Negative Urine Nitrite Negative Urine Bilirubin Negative Urine Urobilinogen Normal Ur Leukocyte Esterase 25 H Urine RBC 0 SEEN Urine WBC 0 SEEN Ur Squamous Epith Cells 0 SEEN Urine Bacteria 0 SEEN Urine Mucus 0 SEEN Radiography Diagnostic Testing: Clinical Impression(s) from Imaging Studies Chest/Abdomen/Pelvis CTA 08/13/22 10:42 IMPRESSION: Peripheral calcifications in the thoracic and abdominal aorta with mural thrombus, but no evidence of dissection. There is no significant stenosis. There is a focal aneurysm in the aorta just prior to the bifurcation which has a patent stent graft within it. Chronic interstitial changes in both lung linder with superimposed interstitial edema and honeycombing around the periphery of both lung linder. No suspicious solid abnormality. Tiny gallstones are present without CT evidence of acute cholecystitis Small bowel ileus Colonic diverticulosis No free intraperitoneal fluid, air, or suspicious adenopathy Degenerative bony changes Electronically Signed: Jonas Foster MD at 11:20 EDT , Gallbladder Ultrasound 08/13/22 13:03 IMPRESSION: No suspicious sonographic findings, study limited due to overlying bowel gas Electronically Signed: Jonas Foster MD at 15:13 EDT , Rhythm Strip Rhythm Strip: Sinus bradycardia Rate: 53 Ectopy: PVC(s) EKG Initial EKG: Attestation: I personally reviewed and interpreted this EKG as follows: Interpretation: Sinus Bradycardia Comments: Sinus bradycardia with PVCs at a rate of 53 bpm Normal axis Normal intervals Nonspecific T wave inversions Compared to prior EKG on 12/31/2021 patient's now has PVCs Discharge Plan Triage Chief Complaint: Abd Pain ED Provider: Zoraida Cantu Dx/Rx/DC Orders Clinical Impression: Abdominal pain, Hypertension, Mesenteric ischemia, Intractable abdominal pain Prescriptions: New dicyclomine 20 mg tablet 20 mg PO TID PRN (Reason: abdominal pain) Qty: 30 0RF No Action clopidogrel [Plavix] 75 mg tablet 150 mg PO QDAY atorvastatin 80 mg tablet 80 mg PO QHS nitroglycerin 0.4 mg tablet, sublingual 0.4 mg SUBLINGUAL Q5-15M PRN (Reason: Pain, Mild) Rx Instructions: until response; do not exceed 3 doses per episode lisinopril 5 mg tablet 5 mg PO QHS aspirin 81 MG tablet 81 mg PO DAILY@0800 pantoprazole 40 mg tablet,delayed release (DR/EC) 40 mg PO DAILY hydrocodone-acetaminophen 5-325 mg tablet 1 tab PO Q8H PRN (Reason: pain) 3 Days Qty: 9 0RF ondansetron 4 mg tablet,disintegrating 4 mg PO Q8H PRN (Reason: nausea and vomiting) Qty: 10 0RF metoprolol tartrate 25 mg tablet 25 mg PO BID Qty: 180 3RF Primary Care Provider: Annika Villasenor Referrals: Annika Villasenor MD [Primary Care Provider] - Fidel Enamorado MD [Med Staff - Active Staff] - 10-14 Days if not better Friend,DO Markel [Med Staff - Active Staff] - As soon as possible Activity Restrictions/Additional Instructions: Your work-up was negative for acute cholecystitis (infection of the gallbladder). There is obstruction or acute pathology of the aorta. Is possibly that you could have poor blood flow to the abdomen and eating a larger meal trigger your symptoms. Your CT did show an ileus which is a slowing of theGI tract. Please return to the ER if you develop fever, worsening abdominal pain or black/blood in your stool. Take your regular medicines tonight. Disposition Disposition: Acute Care Hospital [facility] What to do if you have Problems For any increased pain, shortness of breath, bleeding, nausea or vomiting, chestpain, or any unexpected problems, contact your Primary Care Provider. Call [facility] ([phone]) or report to the closest Emergency Room. Call 911 if necessary. 08/13/22 1727 <Electronically signed by Zoraida Cantu DO> Cosigner Signature (if applicable): CC: Dr. Annika Villasenor MD ~ Signed [facility] Work Phone: [phone]) 415-834303-15-2023 History and physical note Author Dr. Enamorado [facility] August 13, 2022 4:58pm Note Date/Time August 13, 2022 4:1 9pm [facility] Medical Records Department [address] [place] [id number] History & Physical Exam 08/13/22 1618 MR#: [id number] Acct: [id number] Name: CHEY WALKER Rep #:[id number] : 1955 67 From: Fidel Bain PCP: Dr. Annika Villasenor MD Status:REG ER Location: ED HPI - General General Date of Service: 08/13/22 Chief Complaint: Acute on chronic abdominal pain HPI Narrative CHEY WALKER is a 67 M who presents to [facility] with complaintsof abdominal pain has been present for at least 1 year. Patient states that he has acute exacerbations of this pain and they come on with a significant intensity, but they have always improved with morphine and he relates today thatthis was not the case. He states that today's pain began at approximately 530 this morning waking him out of sleep. This pain is described as constant, butMrVineet Walker reports that it increased in intensity till he could not ignore it 3 hours later. He describes the pain as occurring throughout his upper abdomen, but is unable to specify beyond this general location. The pain was associated with nausea but no vomiting. He did not register a fever, but did complain of chills. He denies any recent diarrhea or constipation. His last meal was sloppy Kevyn's and tater tots. ER work-up was notable for CBC that demonstrated leukocytosis with left shift, mildly elevated alkaline phosphatase, and CTA of the chest and abdomen that did not show any acute abnormalities. Patient has a complex CV history inclusive of an open abdominal aortic aneurysm repair in the mid that required revisional surgeries x2 through the [facility]. He also has had 8 coronary stents and remains on Plavix daily. He has had previous admission for ischemic colitis?endoscopically confirmed in the vicinity of the sigmoid colon. He continues to smoke daily?buthis daughter confirms that his use is dramatically cut back from his prior habit. [facility] Medical History Arthritis Atherosclerotic heart disease of [place] coronary artery without angina pectoris CAD in [place] artery Cardiomyopathy Essential hypertension Heart disease History of pneumonia HTN (hypertension) Hyperlipidemia Ischemic colitis NSTEMI (non-ST elevated myocardial infarction) Old myocardial infarction PAD (peripheral artery disease) Personal history of colonic polyps Presence of stent in coronary artery (~06/08/19) Home Medications clopidogrel 75 mg tablet (Plavix) 150 mg PO QDAY 07/24/17 [History Last Taken Unknown] aspirin 81 mg tablet,delayed release 81 mg PO DAILY@0800 01/30/19 [History Last Taken Unknown] atorvastatin 80 mg tablet 80 mg PO QHS 02/16/19 [History Last Taken Unknown] metoprolol tartrate 25 mg tablet 25 mg PO BID #180 tabs 02/25/19 [Rx Last Taken Unknown] lisinopril 5 mg tablet 5 mg PO QHS blood pressure 08/08/19 [History Last Taken Unknown] nitroglycerin 0.4 mg sublingual tablet 0.4 mg sublingual Q5-15M PRN Pain, Mild 08/08/19 [History Last Taken Unknown] pantoprazole 40 mg tablet,delayed release 40 mg PO DAILY GERD 03/31/21 [History Last Taken Unknown] hydrocodone-acetaminophen 5-325mg 5mg-325mg 1 tab PO Q8H PRN pain 3 days #9 tabs01/18/22 [Rx Last Taken Unknown] ondansetron 4 mg disintegrating tablet 4 mg PO Q8H PRN nausea and vomiting #10 tabs 01/18/22 [Rx Last Taken Unknown] Allergy/AdvReac Type Severity Reaction Status Date / Time Sulfa (Sulfonamide Allergy Unknown Verified 08/13/22 09:15 Antibiotics) Family History Father CAD (coronary artery disease) Mother Cancer CAD (coronary artery disease) Surgical History Abdominal aortic aneurysm without rupture History of tbgep-owtje-qpksyah bypass History of coronary artery bypass surgery (~2000) History of open heart surgery Presence of coronary angioplasty implant and graft (~06/08/19) S/P PTCA (percutaneous transluminal coronary angioplasty) Social History Smoking Status: Current some day smoker tobacco type: cigarettes alcohol intake: current alcohol intake frequency: a few times a week Alcohol type: beer and hard liquor substance use type: does not use ROS Constitutional Constitutional: Reports chills; Denies fever(s) or weight loss Gastrointestinal Gastrointestinal: Reports abdominal pain and nausea; Denies constipation, diarrhea, hematochezia, melena or vomiting Vital Signs Vital Signs Vital Signs: 08/13/22 09:16 08/13/22 10:07 08/13/22 11:35 Temperature 98 F Temperature Source Temporal Pulse Rate 55 L 59 L 61 Respiratory Rate 14 19 H 18 Blood Pressure 184/121 H 193/73 H 161/50 H Blood Pressure Mean 142 113 87 Pulse Ox 100 100 98 Oxygen Delivery Method Room Air Room Air Room Air 08/13/22 13:47 Temperature Temperature Source Pulse Rate 66 Respiratory Rate 18 Blood Pressure 190/87 H Blood Pressure Mean 121 Pulse Ox 93 Oxygen Delivery Method Room Air Weight Weight: 194 lb 0.108 oz Body Mass Index (BMI) 27.1 Physical Exam GI GI Narrative: Nondistended, long, well?healed midline laparotomy scar. Soft, no palpable hernia. Tenderness with deep palpation of the epigastrium and right upper quadrant. Negative Rojo sign. Results Lab / Micro Data Result Diagrams: 08/13/22 10:08 08/13/22 10:08 Labs: Laboratory Results - last 24 hr 08/13/22 10:08: WBC 14.1 H, RBC 4.74, Hgb 14.5, Hct 44.9, MCV 94.7 H, MCH 30.6, MCHC 32.3, RDW Std Deviation 51.3 H, RDW Coeff of [place] 14.6, Plt Count 292, MPV 10.0, Immature Gran % (Auto) 3.500 H, Neut % (Auto) 66.4, Lymph % (Auto) 20.4, Door % (Auto) 7.3, Eos % (Auto) 2.3, Baso % (Auto) 0.1, Absolute Neuts (auto) 9.3 H, Absolute Lymphs (auto) 2.86, Nucleated RBC % 0 08/13/22 10:08: Sodium 140, Potassium 4.4, Chloride 110 H, Carbon Dioxide 22.0, Anion Gap 8, BUN 20 H, Creatinine 1.25, Estim Creat Clear Calc 61.08, Est GFR (MDRD) Af Amer 74, Est GFR (MDRD) Non-Af 61, BUN/Creatinine Ratio 16.0, Glucose 152 H, Calcium 8.7, Total Bilirubin 0.70, AST 12 L, ALT 17, Alkaline [id number] H, Troponin I High Sens 14, Total Protein 6.6, Albumin 2.9 L, Globulin 3.7, Albumin/Globulin Ratio 0.8 L, Lipase 245 08/13/22 10:08: Lactic Acid 2.2 H* 08/13/22 11:20: Urine Color Yellow, Urine Clarity Clear, Urine pH 5.0, Ur Specific Scroggins 1.015, Urine Protein 15 H, Urine Glucose (UA) Normal, Urine Ketones Negative, Urine Occult Blood Negative, Urine Nitrite Negative, Urine Bilirubin Negative, Urine Urobilinogen Normal, Ur Leukocyte Esterase 25 H, UrineRBC 0 SEEN, Urine WBC 0 SEEN, Ur Squamous Epith Cells 0 SEEN, Urine Bacteria 0 SEEN, Urine Mucus 0 SEEN 08/13/22 15:24: Lactic Acid 1.6 Radiology Impression Chest/Abdomen/Pelvis CTA 08/13/22 10:42 IMPRESSION: Peripheral calcifications in the thoracic and abdominal aorta with mural thrombus, but no evidence of dissection. There is no significant stenosis. There is a focal aneurysm in the aorta just prior to the bifurcation which has a patent stent graft within it. Chronic interstitial changes in both lung linder with superimposed interstitial edema and honeycombing around the periphery of both lung linder. No suspicious solid abnormality. Tiny gallstones are present without CT evidence of acute cholecystitis Small bowel ileus Colonic diverticulosis No free intraperitoneal fluid, air, or suspicious adenopathy Degenerative bony changes Electronically Signed: Jonas Foster MD at 11:20 EDT , Gallbladder Ultrasound 08/13/22 13:03 IMPRESSION: No suspicious sonographic findings, study limited due to overlying bowel gas Electronically Signed: Jonas Foster MD at 15:13 EDT , Assessment & Plan Assessment/Plan (1) Abdominal pain: PLAN: This is a 67-year-old male, with extensive cardiovascular history?inclusive of open AAA repair and subsequent revisions, who presents witha year-long history of acute on chronic abdominal pain. Patient presents with his daughter and they jointly provided the history. Apparently Mr. Walker has been experiencing his acute exacerbations with increasing frequency, but both Mr. Walker and his daughter state that they have not been given a clear answer as to the cause of this pain. They confirm a history of ischemic colitis as diagnosed with Dr. Sarabia last year and reference an evaluation with Dr. Hollins reportedly told Mr. Walker that there was no way this was his gallbladder. They admit that he has not undergone a right upper quadrant ultrasound for abouta year. On exam, Mr. Walker had tenderness of the epigastrium as well as the right upper quadrant, but reported more significant tenderness of the right upper quadrant?with a negative Rojo sign. Based on this exam I recommended a right upper quadrant ultrasound which was read as normal with no evidence of cholecystitis. Radiology did note that the study was somewhat compromised by overlying bowel gas and I believe this is why they were unable to see the finding of gallstones that were identified in CT imaging. With this diagnosis ruled out, my differential would include entities such as chronic mesenteric ischemia (there does not appear to be argument for acute mesenteric ischemia based on patient's near normal lactate and absence of any vascular swelling or stranding about the bowel), peptic ulcer disease, or other. Emergency medicine notified me that patient's pain complaints had improved so I recommended outpatient follow-up with his PCP as well as potentially vascular surgery given the suspicion for possible chronic mesenteric ischemia. I am also happy to see the patient in a follow-up visit if if it might be felt as beneficial. Charges/Coding Visit Charges OBSV E&M: 94344 Observ/hosp same date L2 08/13/221657 <Electronically signed by Fidel Enamorado MD> Cosigner Signature (if applicable): CC: Dr. Annika Villasenor MD; Dr. Fidel Enamorado MD~ Signed [facility] Work Phone: [phone]) 643-743703-15-2023 History and physical note Author Dr. Enamorado [facility] August 13, 2022 4:58pm Note Date/Time August 13, 2022 4:1 9pm [facility] Medical Records Department [address] [place] [address] History & Physical Exam 08/13/22 1618 MR#: [id number] Acct: [id number] Name: CHEY WALKER Rep #:[id number] : 1955 67 From: Fidel Bain PCP: Dr. Annika Villasenor MD Status:REG ER Location: ED HPI - General General Date of Service: 08/13/22 Chief Complaint: Acute on chronic abdominal pain HPI Narrative CHEY WALKER, is a 67 M who presents to [facility] with complaintsof abdominal pain has been present for at least 1 year. Patient states that he has acute exacerbations of this pain and they come on with a significant intensity, but they have always improved with morphine and he relates today thatthis was not the case. He states that today's pain began at approximately 530 this morning waking him out of sleep. This pain is described as constant, butMrVineet Walker reports that it increased in intensity till he could not ignore it 3 hours later. He describes the pain as occurring throughout his upper abdomen, but is unable to specify beyond this general location. The pain was associated with nausea but no vomiting. He did not register a fever, but did complain of chills. He denies any recent diarrhea or constipation. His last meal was sloppy Kevyn's and tater tots. ER work-up was notable for CBC that demonstrated leukocytosis with left shift, mildly elevated alkaline phosphatase, and CTA of the chest and abdomen that did not show any acute abnormalities. Patient has a complex CV history inclusive of an open abdominal aortic aneurysm repair in the mid that required revisional surgeries x2 through the [facility]. He also has had 8 coronary stents and remains on Plavix daily. He has had previous admission for ischemic colitis?endoscopically confirmed in the vicinity of the sigmoid colon. He continues to smoke daily?buthis daughter confirms that his use is dramatically cut back from his prior habit. [facility] Medical History Arthritis Atherosclerotic heart disease of [place] coronary artery without angina pectoris CAD in [place] artery Cardiomyopathy Essential hypertension Heart disease History of pneumonia HTN (hypertension) Hyperlipidemia Ischemic colitis NSTEMI (non-ST elevated myocardial infarction) Old myocardial infarction PAD (peripheral artery disease) Personal history of colonic polyps Presence of stent in coronary artery (~06/08/19) Home Medications clopidogrel 75 mg tablet (Plavix) 150 mg PO QDAY 07/24/17 [History Last Taken Unknown] aspirin 81 mg tablet,delayed release 81 mg PO DAILY@0800 01/30/19 [History Last Taken Unknown] atorvastatin 80 mg tablet 80 mg PO QHS 02/16/19 [History Last Taken Unknown] metoprolol tartrate 25 mg tablet 25 mg PO BID #180 tabs 02/25/19 [Rx Last Taken Unknown] lisinopril 5 mg tablet 5 mg PO QHS blood pressure 08/08/19 [History Last Taken Unknown] nitroglycerin 0.4 mg sublingual tablet 0.4 mg sublingual Q5-15M PRN Pain, Mild 08/08/19 [History Last Taken Unknown] pantoprazole 40 mg tablet,delayed release 40 mg PO DAILY GERD 03/31/21 [History Last Taken Unknown] hydrocodone-acetaminophen 5-325mg 5mg-325mg 1 tab PO Q8H PRN pain 3 days #9 tabs01/18/22 [Rx Last Taken Unknown] ondansetron 4 mg disintegrating tablet 4 mg PO Q8H PRN nausea and vomiting #10 tabs 01/18/22 [Rx Last Taken Unknown] Allergy/AdvReac Type Severity Reaction Status Date / Time Sulfa (Sulfonamide Allergy Unknown Verified 08/13/22 09:15 Antibiotics) Family History Father CAD (coronary artery disease) Mother Cancer CAD (coronary artery disease) Surgical History Abdominal aortic aneurysm without rupture History of csffv-mseaf-kppmyyo bypass History of coronary artery bypass surgery (~2000) History of open heart surgery Presence of coronary angioplasty implant and graft (~06/08/19) S/P PTCA (percutaneous transluminal coronary angioplasty) Social History Smoking Status: Current some day smoker tobacco type: cigarettes alcohol intake: current alcohol intake frequency: a few times a week Alcohol type: beer and hard liquor substance use type: does not use ROS Constitutional Constitutional: Reports chills; Denies fever(s) or weight loss Gastrointestinal Gastrointestinal: Reports abdominal pain and nausea; Denies constipation, diarrhea, hematochezia, melena or vomiting Vital Signs Vital Signs Vital Signs: 08/13/22 09:16 08/13/22 10:07 08/13/22 11:35 Temperature 98 F Temperature Source Temporal Pulse Rate 55 L 59 L 61 Respiratory Rate 14 19 H 18 Blood Pressure 184/121 H 193/73 H 161/50 H Blood Pressure Mean 142 113 87 Pulse Ox 100 100 98 Oxygen Delivery Method Room Air Room Air Room Air 08/13/22 13:47 Temperature Temperature Source Pulse Rate 66 Respiratory Rate 18 Blood Pressure 190/87 H Blood Pressure Mean 121 Pulse Ox 93 Oxygen Delivery Method Room Air Weight Weight: 194 lb 0.108 oz Body Mass Index (BMI) 27.1 Physical Exam GI GI Narrative: Nondistended, long, well?healed midline laparotomy scar. Soft, no palpable hernia. Tenderness with deep palpation of the epigastrium and right upper quadrant. Negative Rojo sign. Results Lab / Micro Data Result Diagrams: 08/13/22 10:08 08/13/22 10:08 Labs: Laboratory Results - last 24 hr 08/13/22 10:08: WBC 14.1 H, RBC 4.74, Hgb 14.5, Hct 44.9, MCV 94.7 H, MCH 30.6, MCHC 32.3, RDW Std Deviation 51.3 H, RDW Coeff of [place] 14.6, Plt Count 292, MPV 10.0, Immature Gran % (Auto) 3.500 H, Neut % (Auto) 66.4, Lymph % (Auto) 20.4, Door % (Auto) 7.3, Eos % (Auto) 2.3, Baso % (Auto) 0.1, Absolute Neuts (auto) 9.3 H, Absolute Lymphs (auto) 2.86, Nucleated RBC % 0 08/13/22 10:08: Sodium 140, Potassium 4.4, Chloride 110 H, Carbon Dioxide 22.0, Anion Gap 8, BUN 20 H, Creatinine 1.25, Estim Creat Clear Calc 61.08, Est GFR (MDRD) Af Amer 74, Est GFR (MDRD) Non-Af 61, BUN/Creatinine Ratio 16.0, Glucose 152 H, Calcium 8.7, Total Bilirubin 0.70, AST 12 L, ALT 17, Alkaline [id number] H, Troponin I High Sens 14, Total Protein 6.6, Albumin 2.9 L, Globulin 3.7, Albumin/Globulin Ratio 0.8 L, Lipase 245 08/13/22 10:08: Lactic Acid 2.2 H* 08/13/22 11:20: Urine Color Yellow, Urine Clarity Clear, Urine pH 5.0, Ur Specific [place] 1.015, Urine Protein 15 H, Urine Glucose (UA) Normal, Urine Ketones Negative, Urine Occult Blood Negative, Urine Nitrite Negative, Urine Bilirubin Negative, Urine Urobilinogen Normal, Ur Leukocyte Esterase 25 H, UrineRBC 0 SEEN, Urine WBC 0 SEEN, Ur Squamous Epith Cells 0 SEEN, Urine Bacteria 0 SEEN, Urine Mucus 0 SEEN 08/13/22 15:24: Lactic Acid 1.6 Radiology Impression Chest/Abdomen/Pelvis CTA 08/13/22 10:42 IMPRESSION: Peripheral calcifications in the thoracic and abdominal aorta with mural thrombus, but no evidence of dissection. There is no significant stenosis. There is a focal aneurysm in the aorta just prior to the bifurcation which has a patent stent graft within it. Chronic interstitial changes in both lung linder with superimposed interstitial edema and honeycombing around the periphery of both lung linder. No suspicious solid abnormality. Tiny gallstones are present without CT evidence of acute cholecystitis Small bowel ileus Colonic diverticulosis No free intraperitoneal fluid, air, or suspicious adenopathy Degenerative bony changes Electronically Signed: Jonas Foster MD at 11:20 EDT , Gallbladder Ultrasound 08/13/22 13:03 IMPRESSION: No suspicious sonographic findings, study limited due to overlying bowel gas Electronically Signed: Jonas Foster MD at 15:13 EDT , Assessment & Plan Assessment/Plan (1) Abdominal pain: PLAN: This is a 67-year-old male, with extensive cardiovascular history?inclusive of open AAA repair and subsequent revisions, who presents witha year-long history of acute on chronic abdominal pain. Patient presents with his daughter and they jointly provided the history. Apparently Mr. Walker has been experiencing his acute exacerbations with increasing frequency, but both Mr. Walker and his daughter state that they have not been given a clear answer as to the cause of this pain. They confirm a history of ischemic colitis as diagnosed with Dr. Sarabia last year and reference an evaluation with Dr. Hollins reportedly told Mr. Walker that there was no way this was his gallbladder. They admit that he has not undergone a right upper quadrant ultrasound for abouta year. On exam, Mr. Walker had tenderness of the epigastrium as well as the right upper quadrant, but reported more significant tenderness of the right upper quadrant?with a negative Rojo sign. Based on this exam I recommended a right upper quadrant ultrasound which was read as normal with no evidence of cholecystitis. Radiology did note that the study was somewhat compromised by overlying bowel gas and I believe this is why they were unable to see the finding of gallstones that were identified in CT imaging. With this diagnosis ruled out, my differential would include entities such as chronic mesenteric ischemia (there does not appear to be argument for acute mesenteric ischemia based on patient's near normal lactate and absence of any vascular swelling or stranding about the bowel), peptic ulcer disease, or other. Emergency medicine notified me that patient's pain complaints had improved so I recommended outpatient follow-up with his PCP as well as potentially vascular surgery given the suspicion for possible chronic mesenteric ischemia. I am also happy to see the patient in a follow-up visit if if it might be felt as beneficial. Charges/Coding Visit Charges OBSV E&M: 57862 Observ/hosp same date L2 08/13/221657 <Electronically signed by Fidel Enamorado MD> Cosigner Signature (if applicable): CC: Dr. Annika Villasenor MD; Dr. Fidel Enamorado MD~ Signed [facility] Work Phone: [phone]) 781-976203-15-[address] Cantu [facility] August 13, 2022 5:27pm Note Date/Time August 13, 2022 9:5 0am [facility] Medical Records Department [address] [place] [address] Emergency Department Summary 08/13/22 MR#: [id number] Acct: [id number] Name: CHEY WALKER Rep #:[id number] : 1955 67 From: Zoraida Garrison PCP: Dr. Annika Villasenor MD Status:REG ER Location: ED HPI HPI - GI History of Present Illness Chief Complaint: Abd Pain Informant: patient and family Narrative Narrative: Patient is a 67-year-old male with history of hypertension, coronary artery disease, cardiomyopathy, ischemic colitis, prior CABG as well as AAA with stenting presenting with abdominal pain. Patient states he developed severe abdominal pain around 530 this morning that woke him up from sleep. Its been constant. He states it through his entire abdomen. He has a very hard time describing the characteristics of the pain but states this feels like prior episodes of his abdominal pain. He denies associated chest pain or shortness ofbreath. I did have an episode of nausea and diaphoresis with the pain. States that he did try to eat a small cinnamon roll this morning with no change in his pain. States food does not seem to affect it. Notes he had sloppy Kevyn's and tater tots for dinner last night. Has previously seen Dr. Sarabia as well as for evaluation of these episodes abdominal pain. Chart review shows that patient was most recently seen in the ER in December 2021 for similar episode. Patient's daughter reports that week and a half ago he hadsores in his mouth and a rash on his ankle that was treated with a cream and steroids by his primary care doctor, Dr. Hardin. In addition patient is done with a lot of stress at home as his has brain cancer. [facility] Medical History Arthritis Atherosclerotic heart disease of [place] coronary artery without angina pectoris CAD in [place] artery Cardiomyopathy Essential hypertension Heart disease History of pneumonia HTN (hypertension) Hyperlipidemia Ischemic colitis NSTEMI (non-ST elevated myocardial infarction) Old myocardial infarction PAD (peripheral artery disease) Personal history of colonic polyps Presence of stent in coronary artery (~06/08/19) Home Medications clopidogrel 75 mg tablet (Plavix) 150 mg PO QDAY 07/24/17 [History Last Taken Unknown] aspirin 81 mg tablet,delayed release 81 mg PO DAILY@0800 01/30/19 [History Last Taken Unknown] atorvastatin 80 mg tablet 80 mg PO QHS 02/16/19 [History Last Taken Unknown] metoprolol tartrate 25 mg tablet 25 mg PO BID #180 tabs 02/25/19 [Rx Last Taken Unknown] lisinopril 5 mg tablet 5 mg PO QHS blood pressure 08/08/19 [History Last Taken Unknown] nitroglycerin 0.4 mg sublingual tablet 0.4 mg sublingual Q5-15M PRN Pain, Mild 08/08/19 [History Last Taken Unknown] pantoprazole 40 mg tablet,delayed release 40 mg PO DAILY GERD 03/31/21 [History Last Taken Unknown] hydrocodone-acetaminophen 5-325mg 5mg-325mg 1 tab PO Q8H PRN pain 3 days #9 tabs01/18/22 [Rx Last Taken Unknown] ondansetron 4 mg disintegrating tablet 4 mg PO Q8H PRN nausea and vomiting #10 tabs 01/18/22 [Rx Last Taken Unknown] dicyclomine 20 mg tablet 20 mg PO TID PRN abdominal pain #30 tabs 08/13/22 [Rx Last Taken Unknown] Allergy/AdvReac Type Severity Reaction Status Date / Time Sulfa (Sulfonamide Allergy Unknown Verified 08/13/22 09:15 Antibiotics) Family History Father CAD (coronary artery disease) Mother Cancer CAD (coronary artery disease) Surgical History Abdominal aortic aneurysm without rupture History of vuukq-pvkdf-nbcofhq bypass History of coronary artery bypass surgery (~2000) History of open heart surgery Presence of coronary angioplasty implant and graft (~06/08/19) S/P PTCA (percutaneous transluminal coronary angioplasty) Social History Smoking Status: Current some day smoker tobacco type: cigarettes alcohol intake: current alcohol intake frequency: a few times a week Alcohol type: beer and hard liquor substance use type: does not use ROS ROS ED Constitutional Constitutional ED: Reports sweats; Denies chills or fever(s) Cardiovascular Cardiovascular: Denies chest pain Respiratory/Chest Respiratory/Chest: Denies cough or dyspnea Gastrointestinal Gastrointestinal: Reports abdominal pain and nausea; Denies constipation, diarrhea, melena or vomiting Genitourinary Genitourinary ED: Denies dysuria or hematuria Musculoskeletal Musculoskeletal: Denies arthralgias, back pain or myalgias Integumentary Denies rash Neurologic Neurologic: Denies headache(s) or weakness Psychiatric Psychiatric: Denies anxiety Hematologic/Lymphatic Hematologic/Lymphatic: Denies easy bleeding or easy bruising EXAM Physical Exam Const Vital Signs: 08/13/22 09:16 08/13/22 10:07 08/13/22 11:35 Temperature 98 F Temperature Source Temporal Pulse Rate 55 L 59 L 61 Respiratory Rate 14 19 H 18 Blood Pressure 184/121 H 193/73 H 161/50 H Blood Pressure Mean 142 113 87 Pulse Ox 100 100 98 Oxygen Delivery Method Room Air Room Air Room Air 08/13/22 13:47 08/13/22 16:52 Temperature Temperature Source Pulse Rate 66 64 Respiratory Rate 18 16 Blood Pressure 190/87 H 200/69 H Blood Pressure Mean 121 112 Pulse Ox 93 96 Oxygen Delivery Method Room Air Room Air Positive well nourished and well developed Constitutional Narrative: Patient appears quite uncomfortable secondary to pain General Appearance ED: well developed; Negative for pallor HEENT Reports moist mucous membranes normocephalic and atraumatic Eyes PERRL Neck supple and no JVD Resp normal respiratory effort and clear to auscultation bilaterally Cardio regular rate, regular rhythm and no murmurs GI GI Narrative: Diffusely tender, does not seem to localize. Patient does not tolerate abdominal exam well and pushes my hand away. No involuntary guarding or rigidity appreciated. No possible mass appreciated. Inspection: Negative for abdominal distention Auscultation: hypoactive bowel sounds Palpation: soft Extremity full ROM Extremity Narrative: 2+ right radial pulse. 1+ left radial pulse. 2+ bilateral DP pulses (patient reports that the artery on his left arm makes a loop which was reported to him by cardiology during the cardiac catheterization) General Extremety ED: Negative for edema or tenderness General Extremity: Negative for edema Neuro moves all extremities Sensorium / Orientation: alert, oriented to person, oriented to place and oriented to time Motor Exam: Negative for general weakness Psych mental status grossly normal and thought process normal Skin General Skin Exam: Negative for jaundice or pallor Rashes: no rashes MDM MDM MDM Narrative Medical decision making narrative: Patient's evaluated sudden onset of abdominal pain. Initially has a hard time describing where it sat. Does not seem to localize however he does seem slightly more tender in the right upper quadrant. Has known history of gallstones. Patient vital signs are significant for hypertension. He is also bradycardic however it shows that patient does take metoprolol. Patient does not think he took his morning medicines however. His pain is slightly out of proportion and a lactic acid as well as a CTA of the chest abdomen pelvis is obtained. Patient does have a history of AAA has been repaired as well as ischemic colitis. Patient does have a mild leukocytosis of 14.1 with left shift. CMP largely unremarkable with creatinine is baseline at 1.25. His initial lactate is elevated at 2.2. Patient is given multiple doses of morphineand then IV Dilaudid with no significant improvement of his pain. He is given adose of oral Bentyl around the same time he receives Dilaudid. On repeat evaluation he has had improvement of his pain. Given his laboratory findings and abdominal pain without a clear cause I did obtain a surgical consult with Dr. Enamorado. He recommends a right upper quadrant ultrasound. This is obtained does not show any acute process. Discussed again with Dr. Enamorado who feels that likely patient has chronic mesenteric ischemia. Patient received a liter of IV fluid and his lactate is downtrending. Surgery does not feel that patient requires emergent intervention at this time. Recommend outpatient follow-up with primary care as well as surgery. Patient is given his dose of lisinopril. He continues to be hypertensive however his diastolic has improved. Will be given a dose of hydralazine for further blood pressure control prior to discharge. Will be started on Bentyl. Is also encouraged to follow-up with GI. Counseled if he has a further episodes of worsening abdominal pain, fever or black/bloody stools he should return to the emergency room. Patient does verbalize agreement understanding with this. Patient's high sensitivity troponin and EKG did not show any acute ischemic changes and I do not think thisis referred cardiac pain. Do not think this is a hypertensive emergency. Discussed with patient that CT did show an ileus. Counseled to avoid eating large meals. Patient currently does not have any vomiting. Patient tolerates joaquín mark and crackers in the emergency room prior to discharge. When nursing went in to give the patient his discharge paperwork he is now complaining of worsening abdominal pain again. Patient is quite uncomfortable again. He is reevaluated. No significant change in his abdominal pain locationor physical exam. Given his intractable abdominal pain, leukocytosis, elevated lactate upon arrival and left shift in the setting of presumed mesenteric ischemia I do think patient benefit from admission for further pain control and GI consult. Will page for hospitalist as well as Dr. Sarabia. Lab Data Attestation: I reviewed the patient's lab results. Labs: Laboratory Results - last 24 hr 08/13/22 08/13/22 08/13/22 10:08 10:08 10:08 WBC 14.1 H RBC 4.74 Hgb 14.5 Hct 44.9 MCV 94.7 H MCH 30.6 MCHC 32.3 RDW Std Deviation 51.3 H RDW Coeff of [place] 14.6 Plt Count 292 MPV 10.0 Immature Gran % (Auto) 3.500 H Neut % (Auto) 66.4 Lymph % (Auto) 20.4 Door % (Auto) 7.3 Eos % (Auto) 2.3 Baso % (Auto) 0.1 Absolute Neuts (auto) 9.3 H Absolute Lymphs (auto) 2.86 Nucleated RBC % 0 Sodium 140 Potassium 4.4 Chloride 110 H Carbon Dioxide 22.0 Anion Gap 8 BUN 20 H Creatinine 1.25 Estim Creat Clear Calc 61.08 Est GFR (MDRD) Af Amer 74 Est GFR (MDRD) Non-Af 61 BUN/Creatinine Ratio 16.0 Glucose 152 H Lactic Acid 2.2 H* Calcium 8.7 Total Bilirubin 0.70 AST 12 L ALT 17 Alkaline Phosphatase 152 H Troponin I High Sens 14 Total Protein 6.6 Albumin 2.9 L Globulin 3.7 Albumin/Globulin Ratio 0.8 L Lipase 245 Urine Color Urine Clarity Urine pH Ur Specific Scroggins Urine Protein Urine Glucose (UA) Urine Ketones Urine Occult Blood Urine Nitrite Urine Bilirubin Urine Urobilinogen Ur Leukocyte Esterase Urine RBC Urine WBC Ur Squamous Epith Cells Urine Bacteria Urine Mucus 08/13/22 08/13/22 11:20 15:24 WBC RBC Hgb Hct MCV MCH MCHC RDW Std Deviation RDW Coeff of [place] Plt Count MPV Immature Gran % (Auto) Neut % (Auto) Lymph % (Auto) Door % (Auto) Eos % (Auto) Baso % (Auto) Absolute Neuts (auto) Absolute Lymphs (auto) Nucleated RBC % Sodium Potassium Chloride Carbon Dioxide Anion Gap BUN Creatinine Estim Creat Clear Calc Est GFR (MDRD) Af Amer Est GFR (MDRD) Non-Af BUN/Creatinine Ratio Glucose Lactic Acid 1.6 Calcium Total Bilirubin AST ALT Alkaline Phosphatase Troponin I High Sens Total Protein Albumin Globulin Albumin/Globulin Ratio Lipase Urine Color Yellow Urine Clarity Clear Urine pH 5.0 Ur Specific Scroggins 1.015 Urine Protein 15 H Urine Glucose (UA) Normal Urine Ketones Negative Urine Occult Blood Negative Urine Nitrite Negative Urine Bilirubin Negative Urine Urobilinogen Normal Ur Leukocyte Esterase 25 H Urine RBC 0 SEEN Urine WBC 0 SEEN Ur Squamous Epith Cells 0 SEEN Urine Bacteria 0 SEEN Urine Mucus 0 SEEN Radiography Diagnostic Testing: Clinical Impression(s) from Imaging Studies Chest/Abdomen/Pelvis CTA 08/13/22 10:42 IMPRESSION: Peripheral calcifications in the thoracic and abdominal aorta with mural thrombus, but no evidence of dissection. There is no significant stenosis. There is a focal aneurysm in the aorta just prior to the bifurcation which has a patent stent graft within it. Chronic interstitial changes in both lung linder with superimposed interstitial edema and honeycombing around the periphery of both lung linder. No suspicious solid abnormality. Tiny gallstones are present without CT evidence of acute cholecystitis Small bowel ileus Colonic diverticulosis No free intraperitoneal fluid, air, or suspicious adenopathy Degenerative bony changes Electronically Signed: Jonas Foster MD at 11:20 EDT , Gallbladder Ultrasound 08/13/22 13:03 IMPRESSION: No suspicious sonographic findings, study limited due to overlying bowel gas Electronically Signed: Jonas Foster MD at 15:13 EDT , Rhythm Strip Rhythm Strip: Sinus bradycardia Rate: 53 Ectopy: PVC(s) EKG Initial EKG: Attestation: I personally reviewed and interpreted this EKG as follows: Interpretation: Sinus Bradycardia Comments: Sinus bradycardia with PVCs at a rate of 53 bpm Normal axis Normal intervals Nonspecific T wave inversions Compared to prior EKG on 12/31/2021 patient's now has PVCs Discharge Plan Triage Chief Complaint: Abd Pain ED Provider: Zoraida Cantu Dx/Rx/DC Orders Clinical Impression: Abdominal pain, Hypertension, Mesenteric ischemia, Intractable abdominal pain Prescriptions: New dicyclomine 20 mg tablet 20 mg PO TID PRN (Reason: abdominal pain) Qty: 30 0RF No Action clopidogrel [Plavix] 75 mg tablet 150 mg PO QDAY atorvastatin 80 mg tablet 80 mg PO QHS nitroglycerin 0.4 mg tablet, sublingual 0.4 mg SUBLINGUAL Q5-15M PRN (Reason: Pain, Mild) Rx Instructions: until response; do not exceed 3 doses per episode lisinopril 5 mg tablet 5 mg PO QHS aspirin 81 MG tablet 81 mg PO DAILY@0800 pantoprazole 40 mg tablet,delayed release (DR/EC) 40 mg PO DAILY hydrocodone-acetaminophen 5-325 mg tablet 1 tab PO Q8H PRN (Reason: pain) 3 Days Qty: 9 0RF ondansetron 4 mg tablet,disintegrating 4 mg PO Q8H PRN (Reason: nausea and vomiting) Qty: 10 0RF metoprolol tartrate 25 mg tablet 25 mg PO BID Qty: 180 3RF Primary Care Provider: Annika Villasenor Referrals: Annika Villasenor MD [Primary Care Provider] - Fidel Enamorado MD [Med Staff - Active Staff] - 10-14 Days if not better Friend,DO Markel [Med Staff - Active Staff] - As soon as possible Activity Restrictions/Additional Instructions: Your work-up was negative for acute cholecystitis (infection of the gallbladder). There is obstruction or acute pathology of the aorta. Is possibly that you could have poor blood flow to the abdomen and eating a larger meal trigger your symptoms. Your CT did show an ileus which is a slowing of theGI tract. Please return to the ER if you develop fever, worsening abdominal pain or black/blood in your stool. Take your regular medicines tonight. Disposition Disposition: Acute Care Hospital [facility] What to do if you have Problems For any increased pain, shortness of breath, bleeding, nausea or vomiting, chestpain, or any unexpected problems, contact your Primary Care Provider. Call [facility] ([phone]) or report to the closest Emergency Room. Call 911 if necessary. 08/13/22 1727 <Electronically signed by Zoraida Cantu DO> Cosigner Signature (if applicable): CC: Dr. Annika Villasenor MD ~ Signed [facility] Work Phone: [phone] 916-794101-18-2023 Miscellaneous Notes* Telephone Encounter - Omaira Lopez LPN - 06/18/2022 9:51 AM EST Spoke with patient about test results. Patient verbalizes understanding. Omaira Lopez LPN * Telephone Encounter - Omaira Lopez LPN - 06/18/2022 9:49 AM EST ----- Message from Zunilda Christine APRN.JURY CONSULTANT sent at 06/18/2022 9:45 AM EST ----- Please call patient and notify him of echo results ordered by Dr. Marin. EF has improved from 35% to 56%. Thank you! [facility] History of Present illness Narrative* Brenda Marin MD - 06/09/2022 3:23 PM EST Images from the original note were not included. Brenda Marin MD Interventional Cardiology [facility] [address], [place] [address] [phone] Chief Complaint Patient presents with: New Patient HISTORY OF PRESENT ILLNESS: Mr. Walker is a 66 year old male seen in my office for follow-up for his cardiac condition patient had prior history of severe three-vessel coronary artery disease with severe peripheral vascular disease with multiple intervention in both legs with stenting and abdominal aorta stent Patient in 2010 he had bypass surgery at consisted for free ARCE to the LAD of thevein graft to posterolateral branch graft and a vein graft to the ramus 2017 he had non-ST segment elevation NH and underwent angioplasty with drug- eluting stent to the LAD and first diagonal and the circumflex February 01, 2019 non-STEMI shows mid LAD EDUCATION PARAPROFESSIONAL first diagonal EDUCATION PARAPROFESSIONAL 100% circumflex 95% in-stent restenosis with occluded vein graft to the ramus is proximal right coronary artery EDUCATION PARAPROFESSIONAL vein graft to the ramus is occluded vein graft to the posterolateral branch is occluded his free ARCE originating froma vein graft of the posterolateral branches were [...] HTN (hypertension) NSTEMI (non-ST elevated myocardial infarction) ([facility]) 01/30/2019 2 prior NH's PAD (peripheral artery disease) (HCC) PAST SURGICAL HISTORY Procedure Laterality Date CORONARY ARTERY BYPASS GRAFT x3 DIR RPR ANEURYSM ABDOMINAL AORTA 1994 FAMILY HISTORY Problem Relation Age of Onset Rheumatologic disease Mother Ischemic Heart Disease Father dided from NH age 60 other (vascular disease) Father Arthritis [...] 10 mL injection (DEFINITY) INTRAVENOUS DIRECTED PRN Brenda Marin MD sodium chloride 0.9 % (flush) 10 mL (BD POSIFLUSH) 10 mL INTRAVENOUS DIRECTED PRN Brenda Marin MD Review of Systems Constitutional: Negative [...] Follow up plannin MONTHS Electronically signed by Brenda Marin MD on June 09, 2022, 3:23 PM The above note was partially created using a dictation recognition software. A reasonable attempt has been made to correct any errors. documented in this [facility] Miscellaneous Notes* Telephone Encounter - Nel Serna - 01/02/2022 11:21 AM EDT Pt daughter contacted office stating pt is irate that he has been rescheduled multiple times. Pt islooking to follow with a local branch associate teller and keep Dr. Geronimo as an annual appointment due to cancellations. Apologized to patient for the inconvenience documented [facility] History of Past illness Narrative* Problem Noted Date Resolved Date NSTEMI (non-ST elevated myocardial infarction) 0 01/30/2019 02/02/2019 documented as of this encounter (statuses as of 01/02/2022) [facility] of Past illness Narrative* Problem Noted Date Resolved Date NSTEMI (non-ST elevated myocardial infarction) 0 01/30/2019 02/02/2019 documented as of this encounter (statuses as of 06/09/2022) [facility] of Past illness Narrative* Problem Noted Date Resolved Date NSTEMI (non-ST elevated myocardial infarction) 0 01/30/2019 02/02/2019 documented as of this encounter (statuses as of 06/26/2022) [facility] of Past illness Narrative* Problem Noted Date Diagnosed Date Resolved Date NSTEMI (non-ST elevated myoc ardial infarction) 01/30/2019 02/02/2019 documented as of this encounter (statuses as of 12/08/2022) [facility] Mcdaniel [facility] August 14, 2022 4:48pm Note Date/Time August 14, 2022 4:4 5pm [facility] Medical Records Department [address] [place] [address] Instructions for Home/Discharge Instructions 08/14/22 1644 MR#: [id number] Acct: [id number] Name: CHEY WALKER Rep #:[id number] : 1955 67 From: Scotty Mcdaniel DO PCP: Dr. Annika Villasenor MD Status:ADM LEXI Discharge Instructions Diet Discharge Diet: Low fat / Low cholesterol Dressing / Incision Call your doctor if you observe: - (worsening abdominal pain) Follow Up Care Test Results: Test results from this visit will be discussed in further detail at your follow- up appointment, if applicable. Discharge Plan Admission Admit Date/Time: 08/13/22 18:39 Primary Reason for Your Visit: abdominal pain Attending Provider: Scotty Mcdaniel Primary Care Provider: Annika Villasenor Consulting Providers: Mary Fernandez Instructions Additional Instructions / Restrictions: Your work-up was negative for acute cholecystitis (infection of the gallbladder). There is obstruction or acute pathology of the aorta. Is possibly that you could have poor blood flow to the abdomen and eating a larger meal trigger your symptoms. Your CT did show an ileus which is a slowing of theGI tract. Please return to the ER if you develop fever, worsening abdominal pain or black/blood in your stool. Take your regular medicines tonight. Discharge Orders/Prescriptions Prescriptions: New dicyclomine 20 mg tablet 20 mg PO TID PRN (Reason: abdominal pain) Qty: 30 0RF Continued clopidogrel [Plavix] 75 mg tablet 150 mg PO QDAY atorvastatin 80 mg tablet 80 mg PO QHS nitroglycerin 0.4 mg tablet, sublingual 0.4 mg SUBLINGUAL Q5-15M PRN (Reason: Pain, Mild) Rx Instructions: until response; do not exceed 3 doses per episode lisinopril 5 mg tablet 5 mg PO QHS aspirin 81 MG tablet 81 mg PO DAILY@0800 pantoprazole 40 mg tablet,delayed release (DR/EC) 40 mg PO DAILY hydrocodone-acetaminophen 5-325 mg tablet 1 tab PO Q8H PRN (Reason: pain) 3 Days Qty: 9 0RF ondansetron 4 mg tablet,disintegrating 4 mg PO Q8H PRN (Reason: nausea and vomiting) Qty: 10 0RF metoprolol tartrate 25 mg tablet 25 mg PO BID Qty: 180 3RF Referrals / Follow Up: Annika Villasenor MD [Primary Care Provider] - Within 2 Weeks Fidel Enamorado MD [Med Staff - Active Staff] - 10-14 Days if not better Friend,DO Markel [Med Staff - Active Staff] - As soon as possible Disposition Disposition (needs filled in before D/C Order can be placed): Home, Self Care 08/14/221647<Electronically signed by Scotty Mcdaniel DO>Scotty Mcdaniel DO CC: Dr. Annika Villasenor MD; Dr. Mary Fernandez MD ~ Signed [facility] Work Phone: Discharge summary Author Dr. Mcdaniel [facility] August 14, 2022 4:50pm Note Date/Time August 14, 2022 4:5 0pm [facility] Medical Records Department [address] [place] [address] Discharge Summary 08/14/221647 MR#: [id number] Acct: [id number] Name: CHEY WALKER Rep #:[id number] : 1955 67 From: Scotty Mcdaniel DO PCP: Dr. Annika Villasenor MD Status:ADM LEXI Location: [place] [address] Providers Date of Admission: 08/13/22 Primary Care Physician: Dr. Annika Villasenor MD Reason For Visit: INTRACTABLE ABP Diagnosis Discharge Diagnosis (1) Intractable abdominal pain: Status: Acute Code(s): R10.9 - Unspecified abdominal pain Plan: Unclear etiology, seen by GI who suspects ischemic colitis, though CT showed small bowel ileus. Unlikely to be inflammatory bowel disease such as Crohn's disease or ulcerative colitis. Patient may have had some transient ileus or small bowel obstruction but that was not visualized on imaging. Data: * CTA chest abdomen pelvis demonstrated peripheral calcifications and thoracic and abdominal aorta with mural thrombus and no evidence of dissection with no significant stenosis. Focal aneurysm in the aorta just prior to the bifurcation which has a patent stent graft within it. Chronic interstitial changes in both lung linder with superimposed interstitial edema and hon eycombing around the periphery of both lungs. Tiny gallstones on CT without acute cholecystitis, did report small bowel ileus and colonic diverticulosis. * Right upper quadrant US with no suspicious sonographic findings * Lactic acid 2.2 to 1.6 * Alk phos 152 but bili within normal limits and no elevation of AST or ALT Plan: * Discussed with Dr. Sarabia, no plans for any endoscopy during this hospital ization. Okay to advance diet. * outpt capsule endoscopy * Patient tolerated diet today. Will discharge home. Plan Chronic conditions: * Coronary artery disease status post PCI/VICKIE to LCX/OM2 06/08/19; PCI/stent to LAD, D1 and LCX 09/16-Continue aspirin, statin, Plavix, [id number] listed as 150 mg on home med rec, will give 75 we will need to clarify home dosing * AAA: s/p stent. current measurement 4.38cm (3.8 on 12/31/21). Mural thrombus notes * HTN: stable continue lisinopril #DVT ppx: Lovenox subcu Medications at Discharge Home Medications clopidogrel 75 mg tablet (Plavix) 150 mg PO QDAY 07/24/17 aspirin 81 mg tablet,delayed release 81 mg PO DAILY@0800 01/30/19 atorvastatin 80 mg tablet 80 mg PO QHS 02/16/19 metoprolol tartrate 25 mg tablet 25 mg PO BID #180 tabs 02/25/19 lisinopril 5 mg tablet 5 mg PO QHS blood pressure 08/08/19 nitroglycerin 0.4 mg sublingual tablet 0.4 mg sublingual Q5-15M PRN Pain, Mild 08/08/19 pantoprazole 40 mg tablet,delayed release 40 mg PO DAILY GERD 03/31/21 hydrocodone-acetaminophen 5-325mg 5mg-325mg 1 tab PO Q8H PRN pain 3 days #9 tabs01/18/22 ondansetron 4 mg disintegrating tablet 4 mg PO Q8H PRN nausea and vomiting #10 tabs 01/18/22 dicyclomine 20 mg tablet 20 mg PO TID PRN abdominal pain #30 tabs 08/13/22 Hospital Course Operations None Procedures None Summary of Care Provided Minutes Spent on Discharge: 28 Weight / BMI Weight Weight: 87 kg Body Mass Index (BMI) 26.7 ABG / Lab / Microbiology Data Result Diagrams: 08/14/22 06:27 08/14/22 06:27 Laboratory: Laboratory Results - last 24 hr 08/13/22 10:08: ESR 38 H 08/13/22 10:08: Lactate Dehydrogenase 144, C-React Prot Ext Range 41.00 H 08/13/22 11:20: Urine Opiates Screen POSITIVE H, Urine Methadone Screen NEGATIVE, Ur Barbiturates Screen NEGATIVE, Ur Phencyclidine Scrn NEGATIVE, Ur Amphetamines Screen NEGATIVE, MDMA (Ecstasy) Screen NEGATIVE, U Benzodiazepines Scrn NEGATIVE, Urine Cocaine Screen NEGATIVE, U Cannabinoids Screen NEGATIVE, UrDrug Screen Comment 08/14/22 06:27: WBC 11.2 H, RBC 4.02 L, Hgb 12.3 L, Hct 39.2 L, MCV 97.5 H, MCH 30.6, MCHC 31.4 L, RDW Std Deviation 52.1 H, RDW Coeff of Sierra 14.5, Plt Count 243, MPV 9.7, Immature Gran % (Auto) 1.900 H, Neut % (Auto) 66.5, Lymph % (Auto)19.8, Door % (Auto) 8.6, Eos % (Auto) 2.7, Baso % (Auto) 0.5, Absolute Neuts (auto) 7.4, Absolute Lymphs (auto) 2.21, Nucleated RBC % 0 08/14/22 06:27: Sodium 140, Potassium 4.6, Chloride 111 H, Carbon Dioxide 25.0, Anion Gap 4 L, BUN 16, Creatinine 1.05, Estim Creat Clear Calc 72.71, Est GFR (MDRD) Af Amer 91, Est GFR (MDRD) Non-Af 75, BUN/Creatinine Ratio 15.2, Glucose 81, Calcium 7.8 L, Magnesium 1.9, Total Bilirubin 1.10 H, AST 9 L, ALT 14 L, Alkaline Phosphatase 132 H, Total Protein 5.1 L, Albumin 2.2 L, Globulin 2.9, Albumin/Globulin Ratio 0.8 L D/C Instructions Discharge Diet: Low fat / Low cholesterol Call your doctor if you observe: - (worsening abdominal pain) Meaningful Use Info Meaningful Use Diagnoses (Choose all that apply): None applicable Discharge Plan Admission Admit Date/Time: 08/13/22 18:39 Primary Reason for Your Visit: abdominal pain Attending Provider: Scotty Mcdaniel Primary Care Provider: Annika Villasenor Consulting Providers: Mary Fernandez Instructions Additional Instructions / Restrictions: Your work-up was negative for acute cholecystitis (infection of the gallbladder). There is obstruction or acute pathology of the aorta. Is possibly that you could have poor blood flow to the abdomen and eating a larger meal trigger your symptoms. Your CT did show an ileus which is a slowing of the GI tract. Please return to the ER if you develop fever, worsening abdominal pain or black/blood in your stool. Take your regular medicines tonight. Discharge Orders/Prescriptions Prescriptions: New dicyclomine 20 mg tablet 20 mg PO TID PRN (Reason: abdominal pain) Qty: 30 0RF Continued clopidogrel [Plavix] 75 mg tablet 150 mg PO QDAY atorvastatin 80 mg tablet 80 mg PO QHS nitroglycerin 0.4 mg tablet, sublingual 0.4 mg SUBLINGUAL Q5-15M PRN (Reason: Pain, Mild) Rx Instructions: until response; do not exceed 3 doses per episode lisinopril 5 mg tablet 5 mg PO QHS aspirin 81 MG tablet 81 mg PO DAILY@0800 pantoprazole 40 mg tablet,delayed release (DR/EC) 40 mg PO DAILY hydrocodone-acetaminophen 5-325 mg tablet 1 tab PO Q8H PRN (Reason: pain) 3 Days Qty: 9 0RF ondansetron 4 mg tablet,disintegrating 4 mg PO Q8H PRN (Reason: nausea and vomiting) Qty: 10 0RF metoprolol tartrate 25 mg tablet 25 mg PO BID Qty: 180 3RF Referrals / Follow Up: Annika Villasenor MD [Primary Care Provider] - Within 2 Weeks Fidel Enamorado MD [Med Staff - Active Staff] - 10-14 Days if not better Friend,DO Markel [Med Staff - Active Staff] - As soon as possible Disposition Disposition (needs filled in before D/C Order can be placed): Home, Self Care Charges/Coding Visit Charges Inpatient E&M: 29135 Disch Hosp 08/14/22 1650 <Electronically signed by Scotty Mcdaniel DO> Cosigner Signature (if applicable): CC: Dr. Scotty Mcdaniel DO; Dr. Annika Villasenor MD~ Signed [facility] Work Phone: Evaluation noteNo assessment information available [facility] Work Phone: Evaluation note* Diagnosis Screening for ischemic heart disease- Primary Nicotine use disorder, F17.2 Tobacco use disorder Shortness of breath Hx of CABG Postsurgical aortocoronary bypass status Post PTCA Postsurgical percutaneous transluminal coronary angioplasty status Atherosclerosis of [place] artery of right lower extremity with intermittent claudication (HCC) Atherosclerosis of [place] arteries of the extremities with intermittent claudication [facility] Diagnosis Onset Date Resolution Status Abdominal pain acute Intractable abdominal pain a cute Mesenteric ischemia acute Hypertension chronic LGI bleed resolved [facility] Work Phone: Evaluation note* Diagnosis Onset Date Resolution Status Mesenteric ischemia acute Abdominal pain resolved Intractable abdominal pain r esolved LGI bleed resolved Personal history of colonic polyps acute Abdominal pain chronic [facility] Work Phone: Evaluation note* Diagnosis Hx of CABG- Primary Postsurgical aortocoronary bypass status Chronic combined systolic and diastolic CHF (congestive heart failure) (HCC) Chronic combined systolic and diastolic heart failure Atherosclerosis of [place] artery of right lower extremity with intermittent claudication (HCC) Atherosclerosis of [place] arteries of the extremities with intermittent claudication Post PTCA Postsurgical percutaneous transluminal coronary angioplasty status PVD (peripheral vascular disease) (HCC) Peripheral vascular disease, unspecified [facility] Diagnosis Onset Date Resolution Status Abdominal aortic aneurysm without rupture acute Personal history of colonic polyps acute Abdominal pain chronic Abdominal aortic aneurysm without rupture acute History of sxijx-[id number]-rreeykk bypass acute [facility] Work Phone: Evaluation note* Diagnosis Chronic combined systolic and diastolic CHF (congestive heart failure) (HCC)- Primary Chronic combined systolic and diastolic heart failure Hx of CABG Postsurgical aortocoronary bypass status Atherosclerosis of [place] artery of right lower extremity with intermittent claudication (HCC) Atherosclerosis of [place] arteries of the extremities with intermittent claudication Screening for ischemic heart disease [facility] Additional Instructions Your exam and CAT scans do not show any acute cause for your pain. This may be secondary to gallstones which you do have on the CAT scan and had in the past. It could be secondary to decreased blood flow to your intestines but that did not show up on the CAT scan at this time. It could also be from a virus. Plenty of fluids and rest. Follow-up with your doctor to ensure you are improving.[facility] Work Phone: [facility] Dis[facility]WW[facility] Work Phone: Hospital Discharge instructions Additional Instructions Your work-up was negative for acute cholecystitis (infection of the gallbladder). There is obstruction or acute pathology of the aorta. Is possibly that you could have poor blood flow to the abdomen and eating a larger meal trigger your symptoms. Your CT did show an ileus which is a slowing of the GI tract. Please return to the ER if you develop fever, worsening abdominal pain or black/blood in your stool. Take your regular medicines tonight.[facility] Work Phone: Reason for referral (narrative)* Outpatient Procedure (Routine) - Authorized Specialty Diagnoses / Procedures Referred By Radha ryan Referred To Contact [facility] Diagnoses Atherosclerosis of [place] artery of right lower extremity with intermittent claudication (HCC) Procedures PVR ANK PRESS [facility] NON-INVAS PHYSIOLOGIC STD EXTREMITY ART 2 LEVEL Brenda Marin MD [address] [place] [address] [facility] [address] [place] [address] Referral ID Status Reason Start Date Expiration Date Visits Requested Visits Authorized [id number] Authorized Auto-Generat ed Referral 06/09/2022 06/09/2023 1 1 * Outpatient Procedure (Routine) - Authorized Specialty Diagnoses / Procedures Referred By Contjazmyn t [facility] Diagnoses Atherosclerosis of [place] artery of right lower extremity with intermittent claudication (HCC) Procedures PVR LEG W/EXC [facility] N-INVAS PHYSIOLOGIC STD LXTR ART COMPL BI Brenda Marin MD [address] [place] [address] Fax: [facility] [place] [address] [place] [address] Referral ID Status Reason Start Date Expiration Date Visits Requested Visits Authorized [id number] Authorized Auto-Generat ed Referral 06/09/2022 06/09/2023 1 1 * Outpatient Procedure (Routine) - Authorized Specialty Diagnoses / Procedures Referred By Contac t Referred To Contact [facility] Diagnoses Shortness of breath Procedures ECHO ECHO TTHRC R-T 2D W/WOM-MODE COMPL SPEC&COLR D Brenda Marin MD [address] [place] [address] Fax: [facility] [place] [address] [place] [address] Referral ID Status Reason Start Date Expiration Date Visits Requested Visits Authorized [id number] Authorized Auto-Generat ed Referral 06/09/2022 06/09/2023 1 1 * Outpatient Procedure (Routine) - Closed Specialty Diagnoses / Procedures Referred By Contac t Referred To Contact [facility] Diagnoses Screening for ischemic heart disease Nicotine use disorder Procedures ECG COMPLETE ECG ROUTINE ECG W/LEAST 12 LDS W/I&R Brenda Marin MD [address] [place] [address] Fax: [facility] [place] [address] [place] [id number] Referral ID Status Reason Start Date Expiration Date V isits Requested Visits Authorized [id number] Closed Auto-Generate d Referral 05/22/2022 05/22/2023 1 1 [facility] for referral (narrative)* Outpatient Procedure (Routine) - New Request Specialty Diagnoses / Procedures Referred By Contac t Referred [facility] Diagnoses Chronic combined systolic and diastolic CHF (congestive heart failure) (HCC) Hx of CABG Atherosclerosis of [place] artery of right lower extremity with intermittent claudication (HCC) Screening for ischemic heart disease Procedures ECG COMPLETE ECG ROUTINE ECG W/LEAST 12 LDS W/I&R Brenda Marin MD [address] [place] [address] [facility] [place] [address] [place] [address] Referral ID Status Reason Start Date Expiration Date Visits Requested Visits Authorized [id number] New Request Auto-Generat ed Referral 12/21/2023 12/16/2024 1 1 [facility] Summary Purpose Family History No Family History Records Found Relationship Condition Age at Onset Recorded Date/T aron father Coronary artery disease Unknown mother Malignant neoplasm Unknown Coronary artery disease Unknown Advance Directives No Advanced Directives Records Found Advance Directive Response Recorded Date/ Time Living Will Yes December 31, 2021 12:44am Power of Consultant Rn Yes December 31 12:44am Name of Medical Power of Consultant Rn german joyce e December 31, 2021 12:44am Documents on File Type Date Recorded 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 Advance Directive(s) 06/08/2019 10:55 AM Advance Directive(s) 01/31/2019 10:21 AM Advance Directive Response Recorded Date/ Time Name of Medical Power of Consultant Rn german joyce e December 31, 2021 12:44am Living Will No January 17 9:32pm Power of Consultant Rn No January 17 022 9:32pm Advance Directive Response Recorded Date/ Time Living Will Yes August 13, 2022 9:25am Power of Consultant Rn No August 13 9:25am Advance Directive Response Recorded Date/ Time Living Will No August 13, 2022 7:37pm Power of Consultant Rn No August 13 7:37pm Advance Directive Response Recorded Date/ Time Living Will No August 13, 2022 6:37pm Power of Consultant Rn No August 13 6:37pm Hospital Course Note HNO ID: [id number] Author: Bhavya may (Res) MD Gisela Service: Cardiovascular Medicine Author Type: Resident Type: Discharge Summary Filed: 02/02/2019 11:14 AM Note Text: DISCHARGE SUMMARY PATIENT NAME: Chey Walker Code Status: Not on file Highest Readmission [...] (more content not included)... Note HNO ID: [id number] Author: Monique maurer (Rn) GERONIMO Moncada Service: ? Author Type: Registered Nurse Type: Discharge Summary Filed: 02/02/2019 12:03 PM Note Text: Patient received discharge instructions, verbalized understanding. Pt IVs removed intact. All patient belongings returned to patient. Patient left floor ambulatory in stable condition with RN escort to private vehicle with daughter. Chief Complaint and Reason for Visit Chief Complaint ABD PAIN Chief Complaint ABD PAIN ABD PAIN Chief Complaint ABD PAIN ABD PAIN ABD PAIN Chief Complaint ABD INTRACTABLE ABP Reason for Visit Abdominal pain Intractable abdominal pain Mesenteric ischemia Hypertension LGI bleed Chief Complaint ABD INTRACTABLE ABP INTRACTABLE ABP Reason for Visit Abdominal pain Intractable abdominal pain Mesenteric ischemia Hypertension LGI bleed Chief Complaint ABD INTRACTABLE ABP INTRACTABLE ABP cap endo E ORDERS f/u Reason for Visit Mesenteric ischemia Abdominal pain Intractable abdominal pain LGI bleed Personal history of colonic polyps Abdominal pain Chief Complaint abd Chief Complaint abd ER FU CONSULT-AAA W/O RUPTURE Reason for Visit Abdominal aortic ane urysm without rupture Personal history of colonic polyps Abdominal pain Abdominal aortic aneurysm without rupture History of khvma-bsfae-cldxnyk bypass Additional Source Comments (unrecognized sect ion and content) No Status Records FoundNo Status Records FoundNo Status Records FoundNo Status Records FoundNo Status Records FoundNo Status Records Found INFORMATION SOURCE (unrecogn ized section and content) DATE CREATED AUTHOR 11/18/2017 [facility] ([place]) DATE CREATED AUTHOR AUTHOR'S ORGANIZ ATION 02/03/2019 [facility] DATE CREATED AUTHOR AUTHOR'S ORGANIZ ATION 02/08/2019 [facility] DATE CREATED AUTHOR AUTHOR'S ORGANIZ ATION 09/22/2020 [facility] DATE CREATED AUTHOR AUTHOR'S ORGANIZ ATION 12/23/2023 [facility] DATE CREATED AUTHOR AUTHOR'S ORGANIZ ATION 07/28/2024 [facility] Goals (unrecognized section and content) Goals may be documented in a n alternate sectionGoals may be documented in an alternate sectionGoals may be documented in an alternate sectionGoals may be documented in an alternate sectionGoals may be documented in an alternate sectionGoals may be documented in an alternate section Source Comments (unrecognize d section and content) In the event this informatio n is protected by the Federal Confidentiality of Alcohol and Drug Abuse Patient Records regulations: The Federal rules restrict any use of the information to criminally investigate or prosecute any alcohol or drug abuse patient.[facility] event this information is protected by the Federal Confidentiality of Alcohol and Drug Abuse Patient Records regulations: The Federal rules restrict any use of the information to criminally investigate or prosecute any alcohol or drug abuse patient.[facility] the event this information is protected by the Federal Confidentiality of Alcohol and Drug Abuse Patient Records regulations: The Federal rules restrict any use of the information to criminally investigate or prosecute any alcohol or drug abuse patient.[facility] the event this information is protected by the Federal Confidentiality of Alcohol and Drug Abuse Patient Records regulations: The Federal rules restrict any use of the information to criminally investigate or prosecute any alcohol or drug abuse patient.[facility] the event this information is protected by the Federal Confidentiality of Alcohol and Drug Abuse Patient Records regulations: The Federal rules restrict any use of the information to criminally investigate or prosecute any alcohol or drug abuse patient.[facility] Reason for Visit (unrecogniz ed section and content) Reason Comments Patient Update Reason Comments New Patient Reason Comments Results Reason Comments Follow Up Care Teams (unrecognized sec tion and content) Bolting Machine Operator Relationship Specialty Start Date End Date Annika Villasenor [address] [place] [id number] PCP - General Family Practice 04/04/19 Bolting Machine Operator Relationship Specialty Start Date End Date Annika Villasenor MD [address] [place] [address] PCP - General Family Medicine 04/04/19 Bolting Machine Operator Relationship Specialty Start Date End Date Annika Villasenor MD [address] [place] [address] PCP - General Family Medicine 04/04/19 Team Status: Active Member Role Status Dates Dr. Annika Villasenor MD Family Provider Active Dr. Annika Villasenor MD Primary Care Provider Active Team Status: Active Member Role Status Dates Dr. Annika Villasenor MD Primary Care Provider Active Dr. Zoraida Cantu DO Emergency Provider Active Dr. Fidel Enamorado MD Attending Provider Active Team Status: Active Member Role Status Dates Dr. Annika Villasenor MD Primary Care Provider Active Dr. Zoraida Cantu DO Emergency Provider Active Dr. Mary Fernandez MD Admit Provider, Attending Provid er Active Team Status: Active Member Role Status Dates Dr. Annika Villasenor MD Primary Care Provider Active Dr. Zoraida Cantu DO Emergency Provider Active Dr. Mary Fernandez MD Admit Provider, Other Provider A ctive Dr. Scotty Mcdaniel DO Attending Provider, Other Provid er Active Team Status: Inactive Member Role Status Dates Dr. Annika Villasenor MD Primary Care Provider Active Dr. Zoraida Cantu DO Emergency Provider Active Dr. Mary Fernandez MD Admit Provider, Other Provider A ctive Dr. Scotty Mcdaniel DO Attending Provider Active Team Status: Active Member Role Status Dates Dr. Annika Villasenor MD Primary Care Provider Active Dr. Zoraida Cantu DO Emergency Provider Active Dr. Fidel Enamorado MD Attending Provider Active Dr. Scotty Mcdaniel DO Referring Provider Active Team Status: Inactive Member Role Status Dates Dr. Annika Villasenor MD Primary Care Provider, Referrin g Provider Active Dr. Markel Sarabia DO Attending Provider Active Team Status: Inactive Member Role Status Dates Dr. Annika Villasenor MD Primary Care Provider Active Dr. Markel Sarabia DO Attending Provider, Referring Provider Active Bolting Machine Operator Relationship Specialty Start Date End Date Annika Villasenor MD [address] [place] [address] PCP - General Family Medicine 04/04/19 Team Status: Inactive Member Role Status Dates Dr. Annika Villasenor MD Primary Care Provider Active Dr. Duc Monroy DO Emergency Provider Active Team Status: Inactive Member Role Status Dates Dr. Annika Villasenor MD Primary Care Provider, Referrin g Provider Active REGAN Denis Attending Provider Active Team Status: Inactive Member Role Status Dates Dr. Annika Villasenor MD Primary Care Provider Active Dr. Shweta Lofton MD Attending Provider, Referring Pr ovider Active Team Status: Inactive Member Role Status Dates Dr. Annika Villasenor MD Primary Care Provider Active Dr. Duc Monroy DO Attending Provider, Emergency Provide r Active Bolting Machine Operator Relationship Specialty Start Date End Date Annika Villasenor MD [address] [place] [address] PCP - [facility] Family Medicine 04/04/19 FOR RECORDS PERTAINING TO [...] BE BASED ON THE PRIMARY CLINICAL RECORDS. [facility] [employer] [facility]. provides no warranty or guarantee of the accuracy or completeness of information in this document.
== END 2024-03-11 11:32 | disposition home or self-care (01) | DRG 419 ==
LOC: ED 02:52 → MS3 04:26
PROVIDERS: Anesthesiology; Surgery; Admitting Provider Family Medicine; Emergency Provider Emergency Medicine; PCP Family Medicine; Visit Provider Family Medicine
PROC: (CPT 47610; principal; 2024-03-10 13:55)
DX: K80.00 Calculus of gallbladder with acute cholecystitis without obstruction (principal); M06.9 Rheumatoid arthritis, unspecified; I42.9 Cardiomyopathy, unspecified; N18.30 Chronic kidney disease, stage 3 unspecified; E78.5 Hyperlipidemia, unspecified; I12.9 Hypertensive chronic kidney disease with stage 1 through stage 4 chronic kidney disease, or unspecified chronic kidney disease; I73.9 Peripheral vascular disease, unspecified; I25.10 Atherosclerotic heart disease of native coronary artery without angina pectoris; I25.5 Ischemic cardiomyopathy; I25.2 Old myocardial infarction; K21.9 Gastro-esophageal reflux disease without esophagitis; M19.90 Unspecified osteoarthritis, unspecified site; F17.210 Nicotine dependence, cigarettes, uncomplicated; G89.29 Other chronic pain; Z79.02 Long term (current) use of antithrombotics/antiplatelets; Z79.82 Long term (current) use of aspirin; Z79.899 Other long term (current) drug therapy; Z95.1 Presence of aortocoronary bypass graft; Z95.5 Presence of coronary angioplasty implant and graft; Z95.828 Presence of other vascular implants and grafts; E87.20 Acidosis, unspecified
CPT/HCPCS: 47562; 00790; 36415; 76705; 80048; 80053; 81001; 83605; 83690; 83735; 84484; 85025; 88304; 93005; 93306; 94668; 96361; 96365; 96366; 96367; 96372; 96375; 96376; 99221; 99283; 99285; 99406; Q9957; A4216; G0378; J2405

== ENCOUNTER → 2024-07-12 | Outpatient (CLI) | payer MEDICARE, SELFPAY ==
[2024-03-11 11:31] VITALS: BMI 27.6
--- NOTE | 2024-07-12 14:04 | RAD_ITS ---
PROCEDURE: CHEST PA AND LATERAL REASON FOR EXAM: Cough and shortness of breath. TECHNIQUE: Frontal view of the chest. COMPARISON: None. FINDINGS: Cardiac stents are vascular calcifications noted. Status post median sternotomy. Retained lead. Increased interstitial markings are noted with right middle infiltrate. No pleural effusion or pneumothorax noted. Chronic right clavicular fracture deformity. RAD/Chest PA and Lateral IMPRESSION: Increased interstitial markings are noted with right middle infiltrate. Follow to resolution to exclude an underlying lesion. Reading Location: [id number]
== END | disposition home or self-care (01) ==
PROVIDERS: PCP Family Medicine; Referring Provider Family Medicine; Visit Provider Family Medicine
DX: J18.9 Pneumonia, unspecified organism (principal)
CPT/HCPCS: 71046

== ENCOUNTER → 2024-11-25 | Outpatient (CLI) | payer MEDICARE, SELFPAY ==
[2024-03-11 11:31] VITALS: BMI 27.6
[2024-11-25 12:43] LABS: Absolute Lymphocyte Count 2.11 X10^3/uL (0.83-4.51); Absolute Neutrophil Count 4.5 X10^3/uL (2.0-7.7); Basophil# 0.09 X10^3/uL; Basophil% 1.2 % (0-1); Eosinophil# 0.38 X10^3/uL; Hemoglobin 13.3 g/dL (13.0-16.5); Lymphocyte # 2.11 X10^3/ul (0.83-4.51); Lymphocyte % 27.5 % (19-41); Mean Corp Hgb Conc 30.9 g/dL (32-36); Mean Corpuscular Hgb 29.1 pg (27.0-32.0); Mean Corpuscular Volume 94.1 fL (80-94); Mean Platelet Vol. 9.9 fl (6.2-12.0); Monocyte# 0.48 X10^3/uL; Monocyte% 6.3 % (0-10); NRBC Flagged by Analyzer 0 % (0-5); Neutrophil # 4.54 X10^3/uL (2.7-7.7); Neutrophil % 59.2 % (47-70); Platelet Count 368 K/mm3 (150-450); RBC Distribution Width CV 14.1 % (11.6-14.6); RBC Distribution Width SD 48.8 fl (35.1-43.9); Red Blood Count 4.57 M/mm3 (4.6-6.2); White Blood Count 7.7 K/mm3 (4.4-11.0)
[2024-11-25 13:19] LABS: PTHIN 45 pg/mL (11-61)
[2024-11-25 13:32] LABS: ALB/GLOB Ratio 0.9 RATIO (0.9-2.4); AST(SGOT) 17 U/L (<=37); Alanine Aminotransfer ALT/SGPT 7 U/L (<=46); Albumin, Serum 3.4 g/dL (3.4-4.8); Alkaline Phosphatase 186 U/L (40-129); Anion Gap 10 (5-15); BUN 14 mg/dL (4-19); BUN/Creat Ratio 10.4 RATIO (10-20); Carbon Dioxide 23.2 mmol/L (21.0-32.0); Chloride 104 mmol/L (98-108); Cholesterol 107 mg/dL (<=200); Creatinine, Serum 1.37 mg/dL (0.70-1.20); EST Glomerular Filtration Rate 56 (>60); Globulin 3.7 g/dL (2.2-4.2); Glucose 111 mg/dL (70-99); High Density Lipoprotein 30 mg/dL; Low Density Lipoprotein Calc. 65 mg/dL; Potassium 4.9 mmol/L (3.3-5.1); Protein, Total 7.1 g/dL (5.9-8.4); Sodium Level 137 mmol/L (133-145); Total Bilirubin 0.51 mg/dL (0.00-1.30); Triglycerides 60 mg/dL; Very Low Density Lipoprotein 12 mg/dL (5-40)
== END | disposition home or self-care (01) ==
LOC: BFHLAB 09:09
PROVIDERS: PCP Family Medicine; Visit Provider Family Medicine
DX: I25.10 Atherosclerotic heart disease of native coronary artery without angina pectoris (principal); N18.31 Chronic kidney disease, stage 3a
CPT/HCPCS: 36415; 80053; 80061; 83970; 85025